=== PATIENT | female | born 1950 | race Caucasian/White ===

== ENCOUNTER 2016-06-08 20:20 | Inpatient (IN) | payer MEDICARE, MEDICAID ==
[2016-06-08 21:48] LABS: ABSOLUTE EOSINOPHILS # (AUTO) 0.2 10^3/uL (0.0-0.6); ABSOLUTE LYMPHOCYTES (AUTO) 0.8 10^3/uL (0.5-4.7); ABSOLUTE MONOCYTES (AUTO) 0.8 10^3/uL (0.1-1.4); ABSOLUTE NEUT (AUTO) 4.8 10^3/uL (1.7-8.2); BASOPHILS % (AUTO) 0.4 % (0-2); EOSINOPHILS % (AUTO) 2.3 % (0-6); HEMATOCRIT 39.1 % (36.0-47.0); HEMOGLOBIN 12.8 g/dL (12.0-15.5); HGB HCT DIFFERENCE -0.7; LYMPHOCYTES % (AUTO) 12.5 % (13-45); MEAN CORPUSCULAR HEMOGLOBIN 29.6 pg (27.0-33.4); MEAN CORPUSCULAR HGB CONC 32.8 g/dL (32.0-36.0); MEAN CORPUSCULAR VOLUME 90 fl (80-97); MONOCYTES % (AUTO) 12.2 % (3-13); RED BLOOD COUNT 4.33 10^6/uL (3.72-5.28); RED CELL DISTRIBUTION WIDTH 14.9 % (11.5-14.0); SEGMENTED NEUTROPHILS % (AUTO) 72.6 % (42-78); WHITE BLOOD COUNT 6.6 10^3/uL (4.0-10.5)
[2016-06-08 22:13] LABS: ALANINE AMINOTRANSFERASE 49 U/L (9-52); ALBUMIN 3.3 g/dL (3.5-5.0); ALKALINE PHOSPHATASE 76 U/L (38-126); ASPARTATE AMINO TRANSFERASE 25 U/L (14-36); BILIRUBIN,TOTAL 0.6 mg/dL (0.2-1.3); BLOOD UREA NITROGEN 12 mg/dL (7-20); CALCIUM 8.8 mg/dL (8.4-10.2); CHLORIDE 89 mmol/L (98-107); CREATINE KINASE 25 U/L (30-135); CREATININE RESULT 0.43 mg/dL (0.52-1.25); GLUCOSE 91 mg/dL (75-110); POTASSIUM 4.6 mmol/L (3.6-5.0); SODIUM 135.4 mmol/L (137-145); TOTAL PROTEIN 5.7 g/dL (6.3-8.2)
[2016-06-08 22:19] LABS: ANION GAP 5 (5-19)
[2016-06-08 22:23] LABS: CARBON DIOXIDE 41 mmol/L (22-30); CREATINE KINASE MB 0.94 ng/mL (<4.55)
[2016-06-08 22:24] LABS: TROPONIN I < 0.012 ng/mL
--- NOTE | 2016-06-08 22:25 | ER Document Report ---
ED General - General Chief Complaint: Shortness Of Breath Stated Complaint: SHORTNESS OF BREATH Mode of Arrival: Medic Information source: Patient Notes: 66-year-old female history of emphysema presents with complaints of shortness breath difficult to breathing. Patient denies any fevers or chills denies any productive cough. Patient was given breathing treatments by EMS and states symptoms have improved significantly. Patient is on 3 L nasal cannula at home TRAVEL OUTSIDE OF THE [place] IN LAST 30 DAYS: No - HPI Onset: Other - 3-4 day duration Onset/Duration: Sudden Quality of pain: Achy Severity: Mild Pain Level: 1 Associated symptoms: Productive cough, Shortness of breath Exacerbated by: Walking Relieved by: Denies Similar symptoms previously: Yes Recently seen / treated by doctor: Yes - Related Data Allergies/Adverse Reactions: No Known Allergies Allergy (Verified 10/25/14 09:26) Past Medical History - Social History Smoking Status: Never Smoker Cigarette use (# per day): No Chew tobacco use (# tins/day): No Smoking Education Provided: No Family History: Reviewed & Not Pertinent - Past Medical History Cardiac Medical History: Reports: Hx Hypertension Denies: Hx Coronary Artery Disease, Hx Heart Attack Pulmonary Medical History: Reports: Hx Pneumonia - WHEN I WAS 7 YRS OLD Denies: Hx Asthma, Hx Bronchitis, Hx COPD Neurological Medical History: Denies: Hx Cerebrovascular Accident, Hx Seizures Renal/ Medical History: Denies: Hx Peritoneal Dialysis GI Medical History: Denies: Hx Hepatitis, Hx Hiatal Hernia, Hx Ulcer Musculoskeltal Medical History: Reports Hx Arthritis Psychiatric Medical History: Reports: Hx Depression Infectious Medical History: Denies: Hx Hepatitis Past Surgical History: Reports: Hx Orthopedic Surgery - spinal fusion. Denies: Hx Hysterectomy, Hx Mastectomy, Hx Open Heart Surgery, Hx Pacemaker - Immunizations Hx Diphtheria, Pertussis, Tetanus Vaccination: Yes Hx Pneumococcal Vaccination: 04/05/11 Review of Systems - Review of Systems Notes: REVIEW OF SYSTEMS: CONSTITUTIONAL : Denies fever, chills, or sweats. Denies recent illness. EENT: Denies eye, ear, throat, or mouth pain or symptoms. Denies nasal or sinus congestion or discharge. Denies throat, tongue, or mouth swelling or difficulty swallowing. CARDIOVASCULAR: Denies chest pain. Denies palpitations or racing or irregular heart beat. Denies ankle edema. RESPIRATORY: Admits to shortness of breath productive cough GASTROINTESTINAL: Denies abdominal pain or distention. Denies nausea, vomiting , or diarrhea. Denies blood in vomitus, stools, or per rectum. Denies black, tarry stools. Denies constipation. GENITOURINARY: Denies difficulty urinating, painful urination, burning, frequency, blood in urine, or discharge. FEMALE GENITOURINARY: Denies vaginal bleeding, heavy or abnormal periods, irregular periods. Denies vaginal discharge or odor. MUSCULOSKELETAL: Denies back or neck pain or stiffness. Denies joint pain or swelling. SKIN: Denies rash, lesions or sores. HEMATOLOGIC : Denies easy bruising or bleeding. LYMPHATIC: Denies swollen, enlarged glands. NEUROLOGICAL: Denies confusion or altered mental status. Denies passing out or loss of consciousness. Denies dizziness or lightheadedness. Denies headache. Denies weakness or paralysis or loss of use of either side. Denies problems with gait or speech. Denies sensory loss, numbness, or tingling. Denies seizures. PSYCHIATRIC: Denies anxiety or stress. Denies depression, suicidal ideation, or homicidal ideation. ALL OTHER SYSTEMS REVIEWED AND NEGATIVE. Dictation was performed using [facility] voice recognition software PHYSICAL EXAMINATION: GENERAL: Well-appearing, well-nourished and in no acute distress. HEAD: Atraumatic, normocephalic. EYES: Pupils equal round and reactive to light, extraocular movements intact, conjunctiva are normal. ENT: Nares patent, oropharynx clear without exudates. Moist mucous membranes. NECK: Normal range of motion, supple without lymphadenopathy LUNGS: Coarse breath sounds all throughout HEART: Regular rate and rhythm without murmurs ABDOMEN: Soft, nontender, nondistended abdomen. No guarding, no rebound. No masses appreciated. Female : deferred Musculoskeletal: Normal range of motion, no pitting or edema. No cyanosis. NEUROLOGICAL: Cranial nerves grossly intact. Normal speech, normal gait. Normal sensory, motor exams PSYCH: Normal mood, normal affect. SKIN: Warm, Dry, normal turgor, no rashes or lesions noted. Physical Exam - Vital signs Vitals: Temp Resp Pulse Ox 98.5 F 13 97 06/08/16 20:38 06/08/16 20:38 06/08/16 20:38 Course - Re-evaluation Re-evalutation: 06/08/16 22:44 Patient is noted to be hypercapnic, will be started on BiPAP and will be admitted to her primary care physician patient's otherwise stable - Vital Signs Vital signs: Temp Pulse Resp BP Pulse Ox 98.5 F 28 H 129/62 H 92 06/08/16 20:38 06/08/16 21:00 06/08/16 20:40 06/08/16 21:00 - Laboratory Result Diagrams: 06/08/16 21:21 06/08/16 21:21 Laboratory results interpreted by me: 06/08/16 06/08/16 06/08/16 21:21 21:21 21:21 RDW 14.9 H Lymphocytes % 12.5 L Sodium 135.4 L Chloride 89 L Carbon Dioxide 41 H* Creatinine 0.43 L Creatine Kinase 25 L NT-Pro-B Natriuret Pep 2130 H Total Protein 5.7 L Albumin 3.3 L - Diagnostic Test Radiology reviewed: Image reviewed, Reports reviewed Critical Care Note - Critical Care Note Total time excluding time spent on procedures (mins): 41 Comments: 41 minutes of critical care time spent in direct contact evaluating and reevaluating the patient, treating symptoms, reviewing labs and studies and speaking with family and consultants excluding any procedures Discharge - Discharge Clinical Impression: Hypercapnia Emphysema lung Qualifiers: Emphysema type: unspecified Qualified Code(s): J43.9 - Emphysema, unspecified Condition: Stable Disposition: ADMITTED INPATIENT Admitting Provider: [facility] Admitted: Telemetry
[2016-06-08 22:42] LABS: APPEARANCE,URINE CLOUDY; BILIRUBIN,URINE NEGATIVE (NEGATIVE); GLUCOSE, URINE NEGATIVE (NEGATIVE); KETONES,URINE NEGATIVE (NEGATIVE); LEUKOCYTE ESTERASE,URINE LARGE (NEGATIVE); NITRITE,URINE NEGATIVE (NEGATIVE); PROTEIN,URINE 30 mg/dL (NEGATIVE); URINE SPECIFIC GRAVITY 1.018
[2016-06-08 22:48] LABS: VENOUS BLOOD HCO3 42.9 mmol/L (20-32); VENOUS BLOOD PH 7.32 (7.30-7.42)
[2016-06-08 22:51] LABS: VENOUS BLOOD PCO2 85.8 mmHg (35-63)
[2016-06-09] MEDS ORDERED: CEFEPIME 2 GM/D5W RTU 2 GM/50 ML RTUPB IV SCH ×2 (00:15→10:00)
[2016-06-09] MEDS ORDERED: CEFEPIME 2 GM/D5W RTU 2 GM/50 ML RTUPB IV ONE (00:45)
[2016-06-09] MEDS ORDERED: LEVOFLOXACIN 750 MG/D5W RTU 750 MG/150 ML RTUPB IV ONE (01:00)
[2016-06-09 01:03] LABS: THYROID STIMULATING HORMONE 2.19 uIU/mL (0.47-4.68)
[2016-06-09 03:38] LABS: ABSOLUTE EOSINOPHILS # (AUTO) 0.2 10^3/uL (0.0-0.6); ABSOLUTE LYMPHOCYTES (AUTO) 0.9 10^3/uL (0.5-4.7); ABSOLUTE MONOCYTES (AUTO) 0.6 10^3/uL (0.1-1.4); ABSOLUTE NEUT (AUTO) 3.7 10^3/uL (1.7-8.2); BASOPHILS % (AUTO) 0.5 % (0-2); EOSINOPHILS % (AUTO) 3.1 % (0-6); HEMATOCRIT 37.7 % (36.0-47.0); HEMOGLOBIN 12.3 g/dL (12.0-15.5); HGB HCT DIFFERENCE -0.8; LYMPHOCYTES % (AUTO) 16.3 % (13-45); MEAN CORPUSCULAR HEMOGLOBIN 29.3 pg (27.0-33.4); MEAN CORPUSCULAR HGB CONC 32.6 g/dL (32.0-36.0); MEAN CORPUSCULAR VOLUME 90 fl (80-97); MONOCYTES % (AUTO) 11.2 % (3-13); RED CELL DISTRIBUTION WIDTH 14.9 % (11.5-14.0); SEGMENTED NEUTROPHILS % (AUTO) 68.9 % (42-78); WHITE BLOOD COUNT 5.4 10^3/uL (4.0-10.5)
[2016-06-09 03:58] LABS: BLOOD UREA NITROGEN 11 mg/dL (7-20); CALCIUM 8.4 mg/dL (8.4-10.2); CHLORIDE 89 mmol/L (98-107); CREATININE RESULT 0.43 mg/dL (0.52-1.25); GLUCOSE 108 mg/dL (75-110)
[2016-06-09 04:11] LABS: CREATINE KINASE < 20 U/L (30-135)
[2016-06-09 04:19] LABS: POTASSIUM 4.3 mmol/L (3.6-5.0); SODIUM 136.5 mmol/L (137-145)
[2016-06-09 04:28] LABS: ANION GAP 6 (5-19)
[2016-06-09 04:32] LABS: CARBON DIOXIDE 42 mmol/L (22-30)
[2016-06-09 08:23] LABS: URINE BARBITURATES SCREEN NEGATIVE; URINE METHADONE SCREEN NEGATIVE; URINE OPIATES LOW NEGATIVE; URINE PHENCYCLIDINE SCREEN NEGATIVE
[2016-06-09 10:38] LABS: CREATINE KINASE MB 1.47 ng/mL (<4.55)
[2016-06-09 10:41] LABS: TROPONIN I < 0.012 ng/mL
[2016-06-09] MEDS: CEFEPIME HCL 2 GM in DEXTROSE 5%-WATER 50 ML IV SCH ×2 (12:39→23:45)
--- NOTE | 2016-06-09 12:58 | EKG REPORT ---
SEVERITY:- ABNORMAL ECG - SINUS RHYTHM ABNORMAL T, PROBABLE ISCHEMIA, INFERIOR LEADS BORDERLINE PROLONGED QT INTERVAL : Confirmed by: Malina Dobbins 09-Jun-2016 12:57:37
--- NOTE | 2016-06-09 13:54 | Physician Advisory Note ---
Physician Advisor ProgressNote .: Pursuant to the plan for [facility], I have reviewed the medical record for this patient. Physician Advisor Statement: Possible documentation opportunities if attending agrees: 1. ? - "Acute hypoxemic respiratory failure with hypoxemia on her usual O2 level and labored breathing initially, needing Bipap in ED." - & note what is being done for this - [ ?is O2 ordered, or just being given by nurses without an order? ] 2. ? - "chronic hypoxemic respiratory failure requiring 3L O2 at baseline" - - & also Please clarify what pulmonary problems this pt has at baseline, to clear up the contradictory info from ED records below. 3. "LLL pleural effusion" - - "with suspected LLL gram-negative pneumonia"? ( or simply Acute bronchitis? what is being covered for w/Maxipime/Levaquin?) 4. "mild hyponatremia, likely due to " 5. "suspected protein-calorie malnutrition [state mild, mod, or severe] with BMI 26.5, Cr 0.43 w/BUN 12, ____[?wt loss, ?appetite loss, ]" [if possible, give specifics on intake, wt loss, loss of SQ fat & muscle mass, diminished hand rn community strength, & clinical importance such as (A) nutritional assessment ordered, (B) modified diet or supplements ordered, (C) additional labs ordered, (D) prolonged wound healing time, (E) delayed infxn clearance] As always, if concerned about any unstable VS or abnormal labs, please comment on them & note what doing about them, & please document each day the potential clinical problems you are concerned could occur if pt not kept in hospital for tx at this time. Discussion: 66yo female w/ chronic co-morbidities including HTN, past tobacco use, (+)mild pulmonary hypertension & grade I diastolic dysfunction by ECHO 2013 (EF 65%), with unclear chronic respiratory problem hx - chronic 3L O2 needs at baseline per ED dr note, & (+)emphysema, but "denies COPD" & no COPD/emphysema findings reported on CXR/CT reports; (+)evidence of chronic hypercarbia by VBG this visit - presented 3/6 PM to ED w/SOB, cough. Brought by EMS. ED nurse reports EMS gave ASA & SL NTG, pt had sats 70s @home (?on how much O2?? ), & pt was CP free on arrival to ED but still w/mild SOB. ED dr reports EMS gave nebs & this improved pt's breathing by time of arrival. (+) RR28, initial sat 92-97% on ? amt O2, coarse BS throughout, (+)productive cough, WBC wnl, Na 135.4, bicarb 41, BUN 12, Cr 0.43, alb 3.3, BNP up (from 171 in 2013) to 0, VBG's pCO2 85.8 w/bicarb 42.9. CXR = cardiomegaly, BLL densities c/w pleural effusions vs infiltrate, CT = LLL pneumonitis w/Lt pleural effusion, min opacities RLL. ED nurse reported (21:02) pt w/wheezes, breathing labored, tachypneic, SOB on exam initially. [place]so of 22:40, pt required Bipap. Attending ordered IV Maxipime, IV Levaquin, nebs q4h prn, daily wts, BC, U/A, ur cx, f/u labs. Status: Pt with underlying lung dz including chronic hypercarbia, reported chronic hypoxemia, here w/acute downturn with increased work of breathing, requiring not just O2 support but Bipap early on. She has significantly increased BNP and evidence of past underlying diastolic dysfunction, with cardiomegaly on CXR. Pt still with frequent tacbypnea this AM & intermittent tachycardia. High risk for worsening respiratory status if not cared for & monitored in hospital at presetn Attending has already ordered repeat labs for the next 2 days, consistent with expectation she will require more midnights of hospital care. Tx in inpatient hospital setting medically reasonable & necessary to protect pt' s health, safety, & medical condition. Appropriate for Inpt status. Thanks for your help with documentation accuracy/specificity improvement! Cecilia Cordon MD [facility] Physician Advisor, Fellow of Hospital Medicine
[2016-06-09 16:26] LABS: CREATINE KINASE MB 1.08 ng/mL (<4.55); TROPONIN I < 0.012 ng/mL
--- NOTE | 2016-06-09 18:29 | PDOC H&P ---
History of Present Illness Admission Date/PCP: 06/08/16 23:57 KIMI CANELA MD History of Present Illness: MITCH ORELLANA is a 66 year old female with history of chronic respiratory failure on home oxygen, she has postpolio syndrome with chest deformity severe scoliosis on COPD, she complains of shortness of breath, she said pulse oximetry reading was in the low 70s at home that is when she called the rescue squad. When she arrived in the emergency room she was evaluated venous blood gas was done showed PCO2 of 85 a chest x-ray was done that suggest pneumonia, I ordered CT chest that showed left basilar opacity consistent with pneumonic changes. Past Medical History Cardiac Medical History: Reports: Hypertension Pulmonary Medical History: Reports: Chronic Obstructive Pulmonary Disease (COPD) , Pneumonia - WHEN I WAS 7 YRS OLD, Respiratory Failure Musculoskeltal Medical History: Reports: Arthritis Psychiatric Medical History: Reports: Depression Past Surgical History Past Surgical History: Reports: Orthopedic Surgery - spinal fusion Social History Smoking Status: Never Smoker Frequency of Alcohol Use: None Hx Recreational Drug Use: No Hx Prescription Drug Abuse: No - Advance Directive Resuscitation Status: Full Code Family History Family History: Reviewed & Not Pertinent Parental Family History Reviewed: Yes Children Family History Reviewed: Yes Sibling(s) Family History Reviewed.: Yes Medication/Allergy Home Medications: Aspirin [Ecotrin 81 mg EC Tablet] 81 mg PO DAILY 06/09/16 Ipratropium/Albuterol Sulfate [Duoneb 3 ml Ampul] 3 ml NEB RTQ6 06/09/16 Losartan/Hydrochlorothiazide [Hyzaar 50-12.5 Tablet] 1 each PO DAILY 06/09/16 Metoprolol Succinate [Toprol XL 100 mg Tablet] 100 mg PO DAILY 06/09/16 Allergies/Adverse Reactions: No Known Allergies Allergy (Verified 10/25/14 09:26) Review of Systems Eyes: ABSENT: visual disturbances Ears: ABSENT: hearing changes Cardiovascular: PRESENT: dyspnea on exertion, orthropnea Respiratory: PRESENT: cough, dyspnea, sputum Gastrointestinal: ABSENT: as per HPI, abdominal pain, bloating, coffee ground emesis, constipation, diarrhea, dysphagia, heartburn, hematemesis, hematochezia , melena, nausea, vomiting, other Neurological: ABSENT: abnormal gait, abnormal speech, confusion, dizziness, focal weakness, syncope Psychiatric: PRESENT: anxiety Endocrine: ABSENT: as per HPI, cold intolerance, flushing, heat intolerance, menstrual abnormalities, polydipsia, polyphagia, polyuria, other Hematologic/Lymphatic: ABSENT: easy bleeding, easy bruising, lymphadenopathy Physical Exam Vital Signs: Temp Pulse Resp BP Pulse Ox 99.6 F 88 20 104/50 L 100 06/09/16 16:20 06/09/16 16:20 06/09/16 16:20 06/09/16 16:20 06/09/16 16:20 Intake & Output 06/08/16 06/09/16 06/10/16 06:59 06:59 06:59 Weight 56.6 kg 59.5 kg General appearance: PRESENT: mild distress Head exam: PRESENT: atraumatic, normocephalic Eye exam: PRESENT: PERRLA. ABSENT: scleral icterus Ear exam: PRESENT: normal external ear exam Mouth exam: PRESENT: moist, tongue midline Neck exam: PRESENT: full ROM Respiratory exam: PRESENT: decreased breath sounds, other - There is chest wall deformity with severe scoliosis, decreased breath sounds in the left lower lung zone Cardiovascular exam: PRESENT: RRR. ABSENT: diastolic murmur, rubs, systolic murmur Pulses: PRESENT: normal dorsalis pedis pul, +2 pedal pulses bilateral Vascular exam: PRESENT: normal capillary refill GI/Abdominal exam: PRESENT: normal bowel sounds, soft Rectal exam: PRESENT: deferred Neurological exam: PRESENT: alert, awake, oriented to person, oriented to place , oriented to time, oriented to situation, CN II-XII grossly intact. ABSENT: motor sensory deficit Skin exam: ABSENT: cyanosis, rash Results Laboratory Results: 06/09/16 03:27 06/09/16 03:27 06/09/16 06/09/16 06/09/16 00:19 03:27 03:27 WBC 5.4 RBC 4.20 Hgb 12.3 Hct 37.7 MCV 90 MCH 29.3 MCHC 32.6 RDW 14.9 H Plt Count 134 L Seg Neutrophils % 68.9 Lymphocytes % 16.3 Monocytes % 11.2 Eosinophils % 3.1 Basophils % 0.5 Absolute Neutrophils 3.7 Absolute Lymphocytes 0.9 Absolute Monocytes 0.6 Absolute Eosinophils 0.2 Absolute Basophils 0.0 Sodium 136.5 L Potassium 4.3 Chloride 89 L Carbon Dioxide 42 H* Anion Gap 6 BUN 11 Creatinine 0.43 L Est GFR ( Amer) > 60 Est GFR (Non-Af Amer) > 60 Glucose 108 Calcium 8.4 Ammonia 12.4 06/09/16 06/09/16 06/09/16 03:27 09:58 15:35 Creatine Kinase < 20 L 29 L CK-MB (CK-2) 1.47 Troponin I < 0.012 06/09/16 15:35 Creatine Kinase CK-MB (CK-2) 1.08 Troponin I < 0.012 Impressions: Chest X-Ray 06/08/16 21:34 IMPRESSION: Bibasilar densities as noted above. Cardiomegaly. Other findings as noted above Chest CT 06/09/16 00:00 IMPRESSION: Left basilar pneumonitis with left pleural effusion. Minimal opacities at the right lung base. Assessment & Plan - Diagnosis (1) Left lower lobe pneumonia Qualifiers: Pneumonia type: due to unspecified organism Qualified Code(s): J18.1 - Lobar pneumonia, unspecified organism Is this a current diagnosis for this admission?: YesPlan: He has left lower lobe pneumonia, he is started on IV antibiotic, Levaquin and cefepime (2) Acute hypercapnic respiratory failure Is this a current diagnosis for this admission?: YesPlan: There is associated acute hypercapnic respiratory failure, history of COPD (3) Chronic obstructive pulmonary disease Qualifiers: COPD type: unspecified COPD Qualified Code(s): J44.9 - Chronic obstructive pulmonary disease, unspecified Is this a current diagnosis for this admission?: Yes (4) Post-polio syndrome Is this a current diagnosis for this admission?: Yes
[2016-06-09] MEDS: LEVOFLOXACIN 750 MG/D5W RTU 750 MG/150 ML RTUPB IV SCH (21:42)
[2016-06-10 05:58] LABS: ABSOLUTE EOSINOPHILS # (AUTO) 0.2 10^3/uL (0.0-0.6); ABSOLUTE LYMPHOCYTES (AUTO) 0.6 10^3/uL (0.5-4.7); ABSOLUTE MONOCYTES (AUTO) 0.6 10^3/uL (0.1-1.4); ABSOLUTE NEUT (AUTO) 4.1 10^3/uL (1.7-8.2); BASOPHILS % (AUTO) 0.3 % (0-2); EOSINOPHILS % (AUTO) 3.4 % (0-6); HEMATOCRIT 39.9 % (36.0-47.0); HEMOGLOBIN 12.6 g/dL (12.0-15.5); HGB HCT DIFFERENCE -2.1; LYMPHOCYTES % (AUTO) 10.1 % (13-45); MEAN CORPUSCULAR HEMOGLOBIN 29.2 pg (27.0-33.4); MEAN CORPUSCULAR HGB CONC 31.6 g/dL (32.0-36.0); MEAN CORPUSCULAR VOLUME 92 fl (80-97); MONOCYTES % (AUTO) 11.4 % (3-13); RED BLOOD COUNT 4.32 10^6/uL (3.72-5.28); RED CELL DISTRIBUTION WIDTH 15.4 % (11.5-14.0); SEGMENTED NEUTROPHILS % (AUTO) 74.8 % (42-78); WHITE BLOOD COUNT 5.5 10^3/uL (4.0-10.5)
[2016-06-10 06:22] LABS: ALANINE AMINOTRANSFERASE 40 U/L (9-52); ALBUMIN 3.3 g/dL (3.5-5.0); ALKALINE PHOSPHATASE 65 U/L (38-126); ANION GAP 10 (5-19); ASPARTATE AMINO TRANSFERASE 16 U/L (14-36); BILIRUBIN,TOTAL 0.4 mg/dL (0.2-1.3); BLOOD UREA NITROGEN 15 mg/dL (7-20); CARBON DIOXIDE 39 mmol/L (22-30); CHLORIDE 91 mmol/L (98-107); CREATININE RESULT 0.51 mg/dL (0.52-1.25); GLUCOSE 142 mg/dL (75-110); POTASSIUM 4.3 mmol/L (3.6-5.0); SODIUM 140.3 mmol/L (137-145); TOTAL PROTEIN 5.6 g/dL (6.3-8.2)
[2016-06-10 06:25] LABS: CREATINE KINASE MB 1.36 ng/mL (<4.55)
[2016-06-10 06:33] LABS: TROPONIN I < 0.012 ng/mL
[2016-06-10] MEDS: ENOXAPARIN SODIUM INJ 40 MG/0.4 ML DISP.SYRIN SUBCUT SCH ×2 (08:53→08:58)
[2016-06-10] MEDS: CEFEPIME HCL 2 GM in DEXTROSE 5%-WATER 50 ML IV SCH ×2 (11:36→23:05)
--- NOTE | 2016-06-10 18:21 | PDOC PROGRESS REPORT ---
Subjective Progress Note for:: 06/10/16 Subjective:: She was admitted for pneumonia and she seems to be responding to IV antibiotic Physical Exam Vital Signs: Temp Pulse Resp BP Pulse Ox 99.1 F 92 19 123/48 L 98 06/10/16 16:20 06/10/16 16:20 06/10/16 16:20 06/10/16 16:20 06/10/16 16:20 Intake & Output 06/09/16 06/10/16 06/11/16 06:59 06:59 06:59 Intake Total 850 100 Balance 850 100 Weight 56.6 kg 61.7 kg General appearance: PRESENT: no acute distress Eye exam: PRESENT: PERRLA Respiratory exam: PRESENT: rales Cardiovascular exam: PRESENT: +S1, +S2 GI/Abdominal exam: PRESENT: soft Results Laboratory Results: 06/10/16 04:51 06/10/16 04:51 06/10/16 06/10/16 04:51 04:51 WBC 5.5 RBC 4.32 Hgb 12.6 Hct 39.9 MCV 92 MCH 29.2 MCHC 31.6 L RDW 15.4 H Plt Count 143 L Seg Neutrophils % 74.8 Lymphocytes % 10.1 L Monocytes % 11.4 Eosinophils % 3.4 Basophils % 0.3 Absolute Neutrophils 4.1 Absolute Lymphocytes 0.6 Absolute Monocytes 0.6 Absolute Eosinophils 0.2 Absolute Basophils 0.0 Sodium 140.3 Potassium 4.3 Chloride 91 L Carbon Dioxide 39 H Anion Gap 10 BUN 15 Creatinine 0.51 L Est GFR ( Amer) > 60 Est GFR (Non-Af Amer) > 60 Glucose 142 H Calcium 9.0 Total Bilirubin 0.4 AST 16 ALT 40 Alkaline Phosphatase 65 Total Protein 5.6 L Albumin 3.3 L 06/09/16 06/09/16 06/09/16 03:27 09:58 09:58 Creatine Kinase < 20 L 34 CK-MB (CK-2) 1.47 Troponin I < 0.012 06/09/16 06/09/16 06/10/16 15:35 15:35 04:51 Creatine Kinase 29 L CK-MB (CK-2) 1.08 1.36 Troponin I < 0.012 < 0.012 Impressions: Chest X-Ray 06/08/16 21:34 IMPRESSION: Bibasilar densities as noted above. Cardiomegaly. Other findings as noted above Chest CT 06/09/16 00:00 IMPRESSION: Left basilar pneumonitis with left pleural effusion. Minimal opacities at the right lung base. Assessment & Plan - Diagnosis (1) Left lower lobe pneumonia Qualifiers: Pneumonia type: due to unspecified organism Qualified Code(s): J18.1 - Lobar pneumonia, unspecified organism Is this a current diagnosis for this admission?: YesPlan: She will continue IV antibiotic (2) Acute hypercapnic respiratory failure Is this a current diagnosis for this admission?: Yes (3) Chronic obstructive pulmonary disease Qualifiers: COPD type: unspecified COPD Qualified Code(s): J44.9 - Chronic obstructive pulmonary disease, unspecified Is this a current diagnosis for this admission?: Yes (4) Post-polio syndrome Is this a current diagnosis for this admission?: Yes
[2016-06-10] MEDS: LEVOFLOXACIN 750 MG/D5W RTU 750 MG/150 ML RTUPB IV SCH (21:16)
[2016-06-11 05:11] LABS: ABSOLUTE EOSINOPHILS # (AUTO) 0.2 10^3/uL (0.0-0.6); ABSOLUTE LYMPHOCYTES (AUTO) 0.6 10^3/uL (0.5-4.7); ABSOLUTE MONOCYTES (AUTO) 0.8 10^3/uL (0.1-1.4); ABSOLUTE NEUT (AUTO) 5.1 10^3/uL (1.7-8.2); BASOPHILS % (AUTO) 0.3 % (0-2); EOSINOPHILS % (AUTO) 2.5 % (0-6); HEMATOCRIT 38.3 % (36.0-47.0); HEMOGLOBIN 12.4 g/dL (12.0-15.5); HGB HCT DIFFERENCE -1.1; LYMPHOCYTES % (AUTO) 8.7 % (13-45); MEAN CORPUSCULAR HEMOGLOBIN 29.7 pg (27.0-33.4); MEAN CORPUSCULAR HGB CONC 32.3 g/dL (32.0-36.0); MEAN CORPUSCULAR VOLUME 92 fl (80-97); MONOCYTES % (AUTO) 11.4 % (3-13); RED BLOOD COUNT 4.17 10^6/uL (3.72-5.28); RED CELL DISTRIBUTION WIDTH 15.2 % (11.5-14.0); SEGMENTED NEUTROPHILS % (AUTO) 77.1 % (42-78); WHITE BLOOD COUNT 6.7 10^3/uL (4.0-10.5)
[2016-06-11 05:34] LABS: ALANINE AMINOTRANSFERASE 40 U/L (9-52); ALBUMIN 3.3 g/dL (3.5-5.0); ALKALINE PHOSPHATASE 72 U/L (38-126); ASPARTATE AMINO TRANSFERASE 16 U/L (14-36); BILIRUBIN,TOTAL 0.3 mg/dL (0.2-1.3); BLOOD UREA NITROGEN 12 mg/dL (7-20); CALCIUM 8.7 mg/dL (8.4-10.2); CHLORIDE 88 mmol/L (98-107); GLUCOSE 100 mg/dL (75-110); POTASSIUM 4.7 mmol/L (3.6-5.0); SODIUM 136.3 mmol/L (137-145); TOTAL PROTEIN 5.8 g/dL (6.3-8.2)
[2016-06-11 05:47] LABS: ANION GAP 5 (5-19); CARBON DIOXIDE 43 mmol/L (22-30)
[2016-06-11] MEDS: ENOXAPARIN SODIUM INJ 40 MG/0.4 ML DISP.SYRIN SUBCUT SCH (07:48)
[2016-06-11 10:09] LABS: ARTERIAL BLOOD BASE EXCESS 14.7 mmol/L; ARTERIAL BLOOD O2 SATURATION 89.9 % (94-98)
[2016-06-11 11:49] LABS: APPEARANCE,URINE SLIGHTLY-CLOUDY; BILIRUBIN,URINE NEGATIVE (NEGATIVE); GLUCOSE, URINE NEGATIVE (NEGATIVE); KETONES,URINE NEGATIVE (NEGATIVE); LEUKOCYTE ESTERASE,URINE NEGATIVE (NEGATIVE); NITRITE,URINE NEGATIVE (NEGATIVE); PROTEIN,URINE NEGATIVE (NEGATIVE); URINE SPECIFIC GRAVITY 1.025; UROBILINOGEN,URINE NEGATIVE mg/dL (<2.0)
[2016-06-11] MEDS: CEFEPIME HCL 2 GM in DEXTROSE 5%-WATER 50 ML IV SCH ×2 (12:08→23:21)
[2016-06-11 20:02] LABS: ARTERIAL BLOOD BASE EXCESS 13.4 mmol/L
[2016-06-11] MEDS: LEVOFLOXACIN 750 MG TABLET PO SCH (21:26)
[2016-06-12 05:32] LABS: BILIRUBIN,TOTAL 0.6 mg/dL (0.2-1.3); TOTAL PROTEIN 5.1 g/dL (6.3-8.2)
[2016-06-12] MEDS: ENOXAPARIN SODIUM INJ 40 MG/0.4 ML DISP.SYRIN SUBCUT SCH (07:42)
[2016-06-12] MEDS: CEFEPIME HCL 2 GM in DEXTROSE 5%-WATER 50 ML IV SCH (11:30)
--- NOTE | 2016-06-12 21:00 | PDOC PROGRESS REPORT ---
Subjective Progress Note for:: 06/11/16 Subjective:: ABG was done today and it showed severe respiratory acidosis requiring positive pressure ventilation Physical Exam Vital Signs: Temp Pulse Resp BP Pulse Ox 97.9 F 83 19 125/52 L 93 06/11/16 15:27 06/11/16 19:00 06/11/16 15:27 06/11/16 15:27 06/11/16 15:27 Intake & Output 06/10/16 06/11/16 06/12/16 06:59 06:59 06:59 Intake Total 850 1507 183 Output Total 250 Balance 850 1507 -67 Weight 61.7 kg 62.4 kg General appearance: PRESENT: mild distress Eye exam: PRESENT: PERRLA Respiratory exam: PRESENT: crackles Cardiovascular exam: PRESENT: +S1, +S2 GI/Abdominal exam: PRESENT: soft Neurological exam: PRESENT: alert Results Laboratory Results: 06/11/16 04:13 06/11/16 04:13 06/11/16 06/11/16 06/11/16 04:13 04:13 09:50 WBC 6.7 RBC 4.17 Hgb 12.4 Hct 38.3 MCV 92 MCH 29.7 MCHC 32.3 RDW 15.2 H Plt Count 132 L Seg Neutrophils % 77.1 Lymphocytes % 8.7 L Monocytes % 11.4 Eosinophils % 2.5 Basophils % 0.3 Absolute Neutrophils 5.1 Absolute Lymphocytes 0.6 Absolute Monocytes 0.8 Absolute Eosinophils 0.2 Absolute Basophils 0.0 Carbonic Acid 4.21 H HCO3/H2CO3 Ratio 11:1 ABG pH 7.16 L* ABG pCO2 139.9 H* ABG pO2 77.9 L ABG HCO3 49.1 H ABG O2 Saturation 89.9 L ABG Base Excess 14.7 FiO2 3.5L Sodium 136.3 L Potassium 4.7 Chloride 88 L Carbon Dioxide 43 H* Anion Gap 5 BUN 12 Creatinine 0.40 L Est GFR ( Amer) > 60 Est GFR (Non-Af Amer) > 60 Glucose 100 Calcium 8.7 Total Bilirubin 0.3 AST 16 ALT 40 Alkaline Phosphatase 72 Total Protein 5.8 L Albumin 3.3 L Urine Color Urine Appearance Urine pH Ur Specific [place] Urine Protein Urine Glucose (UA) Urine Ketones Urine Blood Urine Nitrite Ur Leukocyte Esterase Urine WBC (Auto) Urine RBC (Auto) 06/11/16 11:10 WBC RBC Hgb Hct MCV MCH MCHC RDW Plt Count Seg Neutrophils % Lymphocytes % Monocytes % Eosinophils % Basophils % Absolute Neutrophils Absolute Lymphocytes Absolute Monocytes Absolute Eosinophils Absolute Basophils Carbonic Acid HCO3/H2CO3 Ratio ABG pH ABG pCO2 ABG pO2 ABG HCO3 ABG O2 Saturation ABG Base Excess FiO2 Sodium Potassium Chloride Carbon Dioxide Anion Gap BUN Creatinine Est GFR ( Amer) Est GFR (Non-Af Amer) Glucose Calcium Total Bilirubin AST ALT Alkaline Phosphatase Total Protein Albumin Urine Color YELLOW Urine Appearance SLIGHTLY-CLOUDY Urine pH 5.0 Ur Specific [place] 1.025 Urine Protein NEGATIVE Urine Glucose (UA) NEGATIVE Urine Ketones NEGATIVE Urine Blood NEGATIVE Urine Nitrite NEGATIVE Ur Leukocyte Esterase NEGATIVE Urine WBC (Auto) 5 Urine RBC (Auto) 1 06/09/16 06/09/16 06/09/16 03:27 09:58 09:58 Creatine Kinase < 20 L 34 CK-MB (CK-2) 1.47 Troponin I < 0.012 06/09/16 06/09/16 06/10/16 15:35 15:35 04:51 Creatine Kinase 29 L CK-MB (CK-2) 1.08 1.36 Troponin I < 0.012 < 0.012 Impressions: Chest X-Ray 06/08/16 21:34 IMPRESSION: Bibasilar densities as noted above. Cardiomegaly. Other findings as noted above Chest CT 06/09/16 00:00 IMPRESSION: Left basilar pneumonitis with left pleural effusion. Minimal opacities at the right lung base. Assessment & Plan - Diagnosis (1) Left lower lobe pneumonia Qualifiers: Pneumonia type: due to unspecified organism Qualified Code(s): J18.1 - Lobar pneumonia, unspecified organism Is this a current diagnosis for this admission?: Yes (2) Acute hypercapnic respiratory failure Is this a current diagnosis for this admission?: Yes (3) Chronic obstructive pulmonary disease Qualifiers: COPD type: unspecified COPD Qualified Code(s): J44.9 - Chronic obstructive pulmonary disease, unspecified Is this a current diagnosis for this admission?: YesPlan: She has severe hypercapnic respiratory acidosis presently on BiPAP machine (4) Post-polio syndrome Is this a current diagnosis for this admission?: Yes
--- NOTE | 2016-06-12 21:05 | PDOC PROGRESS REPORT ---
Subjective Progress Note for:: 06/12/16 Subjective:: Patient was seen by the bedside, she is not requiring the BiPAP as much as yesterday Physical Exam Vital Signs: Temp Pulse Resp BP Pulse Ox 98.1 F 112 H 16 134/61 H 92 06/12/16 19:42 06/12/16 19:42 06/12/16 19:42 06/12/16 19:42 06/12/16 19:42 Intake & Output 06/11/16 06/12/16 06/13/16 06:59 06:59 06:59 Intake Total 1507 408 301 Output Total 250 1 Balance 1507 158 300 Weight 62.4 kg 60.9 kg General appearance: PRESENT: no acute distress Eye exam: PRESENT: PERRLA Respiratory exam: PRESENT: clear to auscultation ryley Cardiovascular exam: PRESENT: +S1, +S2 GI/Abdominal exam: PRESENT: soft Neurological exam: PRESENT: alert Results Laboratory Results: 06/11/16 04:13 06/11/16 04:13 06/12/16 04:11 Total Bilirubin 0.6 AST 14 ALT 35 Alkaline Phosphatase 63 Total Protein 5.1 L Albumin 3.0 L 06/09/16 06/09/16 06/09/16 03:27 09:58 09:58 Creatine Kinase < 20 L 34 CK-MB (CK-2) 1.47 Troponin I < 0.012 06/09/16 06/09/16 06/10/16 15:35 15:35 04:51 Creatine Kinase 29 L CK-MB (CK-2) 1.08 1.36 Troponin I < 0.012 < 0.012 Impressions: Chest X-Ray 06/08/16 21:34 IMPRESSION: Bibasilar densities as noted above. Cardiomegaly. Other findings as noted above Chest CT 06/09/16 00:00 IMPRESSION: Left basilar pneumonitis with left pleural effusion. Minimal opacities at the right lung base. Assessment & Plan - Diagnosis (1) Left lower lobe pneumonia Qualifiers: Pneumonia type: due to unspecified organism Qualified Code(s): J18.1 - Lobar pneumonia, unspecified organism Is this a current diagnosis for this admission?: YesPlan: We will continue IV antibiotic, and other treatment and of other treatment (2) Acute hypercapnic respiratory failure Is this a current diagnosis for this admission?: Yes (3) Chronic obstructive pulmonary disease Qualifiers: COPD type: unspecified COPD Qualified Code(s): J44.9 - Chronic obstructive pulmonary disease, unspecified Is this a current diagnosis for this admission?: Yes (4) Post-polio syndrome Is this a current diagnosis for this admission?: Yes
[2016-06-12] MEDS: LEVOFLOXACIN 750 MG TABLET PO SCH (21:24)
[2016-06-13] MEDS: CEFEPIME HCL 2 GM in DEXTROSE 5%-WATER 50 ML IV SCH ×2 (00:35→12:01)
[2016-06-13] MEDS: ENOXAPARIN SODIUM INJ 40 MG/0.4 ML DISP.SYRIN SUBCUT SCH (07:51)
--- NOTE | 2016-06-13 16:16 | PDOC PROGRESS REPORT ---
Subjective Progress Note for:: 06/13/16 Subjective:: Patient continue experiencing cough with sputum production. No significant chest pain. Patient is not very compliant with BiPAP usage. No nausea, vomiting or abdominal pain. P.O intake fair. Physical Exam Vital Signs: Temp Pulse Resp BP Pulse Ox 99.0 F 108 H 20 125/61 100 06/13/16 12:38 06/13/16 14:00 06/13/16 12:38 06/13/16 12:38 06/13/16 12:38 Intake & Output 06/12/16 06/13/16 06/14/16 06:59 06:59 07:59 Intake Total 408 576 222 Output Total 250 1 Balance 158 575 222 Weight 60.9 kg 60.4 kg 60.4 kg General appearance: PRESENT: no acute distress, cooperative Head exam: PRESENT: atraumatic, normocephalic Eye exam: PRESENT: conjunctiva pink, EOMI, PERRLA. ABSENT: scleral icterus Mouth exam: PRESENT: moist Respiratory exam: PRESENT: clear to auscultation ryley, decreased breath sounds Cardiovascular exam: PRESENT: RRR. ABSENT: diastolic murmur, rubs, systolic murmur GI/Abdominal exam: PRESENT: normal bowel sounds, soft. 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 Cardiomegaly. Other findings as noted above Chest CT 06/09/16 00:00 IMPRESSION: Left basilar pneumonitis with left pleural effusion. Minimal opacities at the right lung base. Assessment & Plan - Diagnosis (1) Chronic obstructive pulmonary disease Qualifiers: COPD type: unspecified COPD Qualified Code(s): J44.9 - Chronic obstructive pulmonary disease, unspecified Is this a current diagnosis for this admission?: YesPlan: See covering attending physician orders. (2) Hypercapnia Is this a current diagnosis for this admission?: YesPlan: See covering attending physician orders. (3) Left lower lobe pneumonia Qualifiers: Pneumonia type: due to unspecified organism Qualified Code(s): J18.1 - Lobar pneumonia, unspecified organism Is this a current diagnosis for this admission?: YesPlan: See covering attending physician orders. (4) Post-polio syndrome Is this a current diagnosis for this admission?: YesPlan: See covering attending physician orders. - Time Time Spent with patient: 25-34 minutes Medications reviewed and adjusted accordingly: Yes Anticipated discharge: Home with Homehealth - Inpatient Certification Based on my medical assessment, after consideration of the patient's comorbidities, presenting symptoms, or acuity I expect that the services needed warrant INPATIENT care.: Yes I certify that my determination is in accordance with my understanding of Medicare's requirements for reasonable and necessary INPATIENT services [42 CFR 412.3e].: Yes Medical Necessity: Need Close Monitoring Due to Risk of Patient Decompensation, Need For IV Fluids, Need For Continuous Telemetry Monitoring, Need for Nebulizer Therapy and Monitoring of Response, Need for IV Antibiotics, Risk of Complication if Not Cared For in Hospital Post Hospital Care: D/C Access Clinician Documentation - Plan Summary Plan Summary: See covering attending physician orders. Continue IV Cefepime and oral Levofloxacin coverage.
[2016-06-13] MEDS: LEVOFLOXACIN 750 MG TABLET PO SCH (21:46)
[2016-06-14] MEDS: CEFEPIME HCL 2 GM in DEXTROSE 5%-WATER 50 ML IV SCH ×2 (00:16→11:40)
[2016-06-14 05:02] LABS: ABSOLUTE EOSINOPHILS # (AUTO) 0.2 10^3/uL (0.0-0.6); ABSOLUTE LYMPHOCYTES (AUTO) 0.5 10^3/uL (0.5-4.7); ABSOLUTE MONOCYTES (AUTO) 0.7 10^3/uL (0.1-1.4); ABSOLUTE NEUT (AUTO) 2.5 10^3/uL (1.7-8.2); BASOPHILS % (AUTO) 0.6 % (0-2); HEMATOCRIT 35.9 % (36.0-47.0); HEMOGLOBIN 11.7 g/dL (12.0-15.5); HGB HCT DIFFERENCE -0.8; LYMPHOCYTES % (AUTO) 12.3 % (13-45); MEAN CORPUSCULAR HEMOGLOBIN 29.4 pg (27.0-33.4); MEAN CORPUSCULAR HGB CONC 32.5 g/dL (32.0-36.0); MEAN CORPUSCULAR VOLUME 91 fl (80-97); MONOCYTES % (AUTO) 16.8 % (3-13); RED BLOOD COUNT 3.97 10^6/uL (3.72-5.28); RED CELL DISTRIBUTION WIDTH 15.1 % (11.5-14.0); SEGMENTED NEUTROPHILS % (AUTO) 64.3 % (42-78); WHITE BLOOD COUNT 3.9 10^3/uL (4.0-10.5)
[2016-06-14 05:13] LABS: BLOOD UREA NITROGEN 10 mg/dL (7-20); CALCIUM 8.9 mg/dL (8.4-10.2); CHLORIDE 94 mmol/L (98-107); CREATININE RESULT 0.31 mg/dL (0.52-1.25); GLUCOSE 103 mg/dL (75-110); POTASSIUM 4.7 mmol/L (3.6-5.0); SODIUM 139.1 mmol/L (137-145)
[2016-06-14 05:30] LABS: CARBON DIOXIDE 44 mmol/L (22-30)
[2016-06-14 07:57] LABS: ANION GAP 1 (5-19)
[2016-06-14] MEDS: ENOXAPARIN SODIUM INJ 40 MG/0.4 ML DISP.SYRIN SUBCUT SCH (08:25)
--- NOTE | 2016-06-14 10:56 | PDOC PROGRESS REPORT ---
Subjective Progress Note for:: 06/14/16 Subjective:: Patient reported some improvement in her breathing and less coughing. No chest pain. Emphasized compliance with BiPAP usage. No nausea, vomiting or abdominal pain. P.O intake fair. No reported fever or chills. Physical Exam Vital Signs: Temp Pulse Resp BP Pulse Ox 98.0 F 84 22 H 117/58 L 97 06/14/16 07:52 06/14/16 07:52 06/14/16 07:52 06/14/16 07:52 06/14/16 07:52 Intake & Output 06/13/16 06/14/16 06/15/16 05:59 06:59 06:59 Intake Total Output Total Balance Weight Physical Exam: General appearance: PRESENT: no acute distress, cooperative Head exam: PRESENT: atraumatic, normocephalic Eye exam: PRESENT: conjunctiva pink, EOMI, PERRLA. ABSENT: scleral icterus Mouth exam: PRESENT: moist Respiratory exam: PRESENT: clear to auscultation ryley, decreased breath sounds Cardiovascular exam: PRESENT: RRR. ABSENT: diastolic murmur, rubs, systolic murmur GI/Abdominal exam: PRESENT: normal bowel sounds, soft. 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 Neurological exam: PRESENT: alert, oriented to person, oriented to place, oriented to time, oriented to situation Psychiatric exam: PRESENT: appropriate affect Skin exam: PRESENT: dry, warm Results Laboratory Results: 06/14/16 04:18 06/14/16 04:18 06/14/16 06/14/16 04:18 04:18 WBC 3.9 L RBC 3.97 Hgb 11.7 L Hct 35.9 L MCV 91 MCH 29.4 MCHC 32.5 RDW 15.1 H Plt Count 117 L Seg Neutrophils % 64.3 Lymphocytes % 12.3 L Monocytes % 16.8 H Eosinophils % 6.0 Basophils % 0.6 Absolute Neutrophils 2.5 Absolute Lymphocytes 0.5 Absolute Monocytes 0.7 Absolute Eosinophils 0.2 Absolute Basophils 0.0 Sodium 139.1 Potassium 4.7 Chloride 94 L Carbon Dioxide 44 H* Anion Gap 1 L BUN 10 Creatinine 0.31 L Est GFR ( Amer) > 60 Est GFR (Non-Af Amer) > 60 Glucose 103 Calcium 8.9 06/09/16 00:19 Blood Blood Culture - Final NO GROWTH IN 5 DAYS 06/09/16 06/09/16 06/09/16 03:27 09:58 09:58 Creatine Kinase < 20 L 34 CK-MB (CK-2) 1.47 Troponin I < 0.012 06/09/16 06/09/16 06/10/16 15:35 15:35 04:51 Creatine Kinase 29 L CK-MB (CK-2) 1.08 1.36 Troponin I < 0.012 < 0.012 Impressions: Chest X-Ray 06/08/16 21:34 IMPRESSION: Bibasilar densities as noted above. Cardiomegaly. Other findings as noted above Chest CT 06/09/16 00:00 IMPRESSION: Left basilar pneumonitis with left pleural effusion. Minimal opacities at the right lung base. Assessment & Plan - Diagnosis (1) Chronic obstructive pulmonary disease Qualifiers: COPD type: unspecified COPD Qualified Code(s): J44.9 - Chronic obstructive pulmonary disease, unspecified Is this a current diagnosis for this admission?: YesPlan: See covering attending physician orders. (2) Hypercapnia Is this a current diagnosis for this admission?: YesPlan: See covering attending physician orders. (3) Left lower lobe pneumonia Qualifiers: Pneumonia type: due to unspecified organism Qualified Code(s): J18.1 - Lobar pneumonia, unspecified organism Is this a current diagnosis for this admission?: YesPlan: See covering attending physician orders. (4) Post-polio syndrome Is this a current diagnosis for this admission?: YesPlan: See covering attending physician orders. - Time Time Spent with patient: 25-34 minutes Medications reviewed and adjusted accordingly: Yes Anticipated discharge: Home with Homehealth Within: Other - Inpatient Certification Based on my medical assessment, after consideration of the patient's comorbidities, presenting symptoms, or acuity I expect that the services needed warrant INPATIENT care.: Yes I certify that my determination is in accordance with my understanding of Medicare's requirements for reasonable and necessary INPATIENT services [42 CFR 412.3e].: Yes Medical Necessity: Need Close Monitoring Due to Risk of Patient Decompensation, Need For Continuous Telemetry Monitoring, Need for IV Antibiotics, Risk of Complication if Not Cared For in Hospital Post Hospital Care: D/C Policy And Planning Manager Documentation - Plan Summary Plan Summary: See covering attending physician orders.
[2016-06-14] MEDS: LEVOFLOXACIN 750 MG TABLET PO SCH (21:46)
[2016-06-15] MEDS: CEFEPIME HCL 2 GM in DEXTROSE 5%-WATER 50 ML IV SCH ×2 (00:04→11:17)
[2016-06-15] MEDS: ENOXAPARIN SODIUM INJ 40 MG/0.4 ML DISP.SYRIN SUBCUT SCH (11:15)
--- NOTE | 2016-06-15 18:10 | PDOC PROGRESS REPORT ---
Subjective Progress Note for:: 06/15/16 Subjective:: Patient was seen by the bedside, she is not requiring the positive pressure ventilation as often as she was. Physical Exam Vital Signs: Temp Pulse Resp BP Pulse Ox 98.5 F 121 H 22 H 122/56 L 97 06/15/16 12:47 06/15/16 14:00 06/15/16 12:47 06/15/16 12:47 06/15/16 12:47 Intake & Output 06/14/16 06/15/16 06/16/16 06:59 06:59 06:59 Intake Total 1548 547 Output Total Balance 1548 547 Weight 66.8 kg General appearance: PRESENT: no acute distress Head exam: PRESENT: atraumatic, normocephalic Eye exam: ABSENT: scleral icterus Ear exam: PRESENT: normal external ear exam Mouth exam: PRESENT: moist, tongue midline Neck exam: PRESENT: full ROM Respiratory exam: PRESENT: clear to auscultation ryley, other - There is chest wall deformity Cardiovascular exam: PRESENT: RRR, +S1, +S2 Pulses: PRESENT: normal dorsalis pedis pul, +2 pedal pulses bilateral Vascular exam: PRESENT: normal capillary refill GI/Abdominal exam: PRESENT: normal bowel sounds, soft Rectal exam: PRESENT: deferred Neurological exam: PRESENT: alert, awake, oriented to person, oriented to place , oriented to time, oriented to situation, CN II-XII grossly intact Psychiatric exam: PRESENT: appropriate affect, normal mood Skin exam: PRESENT: dry, intact, warm Results Laboratory Results: 06/14/16 04:18 06/14/16 04:18 06/09/16 06/09/16 06/09/16 03:27 09:58 09:58 Creatine Kinase < 20 L 34 CK-MB (CK-2) 1.47 Troponin I < 0.012 06/09/16 06/09/16 06/10/16 15:35 15:35 04:51 Creatine Kinase 29 L CK-MB (CK-2) 1.08 1.36 Troponin I < 0.012 < 0.012 Impressions: Chest X-Ray 06/08/16 21:34 IMPRESSION: Bibasilar densities as noted above. Cardiomegaly. Other findings as noted above Chest CT 06/09/16 00:00 IMPRESSION: Left basilar pneumonitis with left pleural effusion. Minimal opacities at the right lung base. Assessment & Plan - Diagnosis (1) Left lower lobe pneumonia Qualifiers: Pneumonia type: due to unspecified organism Qualified Code(s): J18.1 - Lobar pneumonia, unspecified organism Is this a current diagnosis for this admission?: YesPlan: Blood culture grew staph epi most likely contamination, chest x-ray is ordered (2) Acute hypercapnic respiratory failure Is this a current diagnosis for this admission?: Yes (3) Chronic obstructive pulmonary disease Qualifiers: COPD type: unspecified COPD Qualified Code(s): J44.9 - Chronic obstructive pulmonary disease, unspecified Is this a current diagnosis for this admission?: Yes (4) Post-polio syndrome Is this a current diagnosis for this admission?: Yes
[2016-06-15] MEDS: LEVOFLOXACIN 750 MG TABLET PO SCH (22:13)
[2016-06-16] MEDS: CEFEPIME HCL 2 GM in DEXTROSE 5%-WATER 50 ML IV SCH ×3 (00:01→12:02)
[2016-06-16 09:44] LABS: ABSOLUTE EOSINOPHILS # (AUTO) 0.2 10^3/uL (0.0-0.6); ABSOLUTE LYMPHOCYTES (AUTO) 0.6 10^3/uL (0.5-4.7); ABSOLUTE MONOCYTES (AUTO) 0.4 10^3/uL (0.1-1.4); BASOPHILS % (AUTO) 0.9 % (0-2); EOSINOPHILS % (AUTO) 6.3 % (0-6); HEMOGLOBIN 11.9 g/dL (12.0-15.5); HGB HCT DIFFERENCE -2.3; LYMPHOCYTES % (AUTO) 18.2 % (13-45); MEAN CORPUSCULAR HEMOGLOBIN 28.8 pg (27.0-33.4); MEAN CORPUSCULAR HGB CONC 31.3 g/dL (32.0-36.0); MEAN CORPUSCULAR VOLUME 92 fl (80-97); MONOCYTES % (AUTO) 11.6 % (3-13); RED BLOOD COUNT 4.13 10^6/uL (3.72-5.28); RED CELL DISTRIBUTION WIDTH 15.3 % (11.5-14.0); WHITE BLOOD COUNT 3.3 10^3/uL (4.0-10.5)
[2016-06-16 10:01] LABS: BLOOD UREA NITROGEN 10 mg/dL (7-20); CALCIUM 9.2 mg/dL (8.4-10.2); CHLORIDE 92 mmol/L (98-107); GLUCOSE 122 mg/dL (75-110); POTASSIUM 4.1 mmol/L (3.6-5.0); SODIUM 141.7 mmol/L (137-145)
[2016-06-16 10:11] LABS: ANION GAP 5 (5-19)
[2016-06-16 10:12] LABS: CARBON DIOXIDE 45 mmol/L (22-30)
[2016-06-16] MEDS: ENOXAPARIN SODIUM INJ 40 MG/0.4 ML DISP.SYRIN SUBCUT SCH (10:17)
[2016-06-16] MEDS: ALPRAZOLAM 0.25 MG TABLET PO PRN (11:27)
[2016-06-16 19:23] LABS: ARTERIAL BLOOD BASE EXCESS 14.2 mmol/L; ARTERIAL BLOOD O2 SATURATION 90.4 % (94-98)
--- NOTE | 2016-06-16 19:40 | PDOC PROGRESS REPORT ---
Subjective Progress Note for:: 06/16/16 Subjective:: Patient had episode of anxiety this afternoon, she was asking for BiPAP continuously, she had a low dose Xanax and that seems to help the anxiety episode that she was manifesting. Blood gas on FiO2 of 3 L, pH 7.31, PCO2 89.5 , bicarbonate 44.4, PO2 67.1. She was admitted for pneumonia, she has COPD with deformity of the chest wall. Physical Exam Vital Signs: Temp Pulse Resp BP Pulse Ox 99.2 F 95 24 H 112/59 L 96 06/16/16 16:20 06/16/16 16:20 06/16/16 16:20 06/16/16 16:20 06/16/16 16:20 Intake & Output 06/15/16 06/16/16 06/17/16 06:59 06:59 06:59 Intake Total 1548 1258 1032 Balance 1548 1258 1032 Weight 66.8 kg 62.8 kg General appearance: PRESENT: mild distress Eye exam: PRESENT: PERRLA Respiratory exam: PRESENT: decreased breath sounds Cardiovascular exam: PRESENT: +S1, +S2 GI/Abdominal exam: PRESENT: soft Neurological exam: PRESENT: alert, CN II-XII grossly intact Results Laboratory Results: 06/16/16 09:12 06/16/16 09:12 06/16/16 06/16/16 06/16/16 09:12 09:12 18:10 WBC 3.3 L RBC 4.13 Hgb 11.9 L Hct 38.0 MCV 92 MCH 28.8 MCHC 31.3 L RDW 15.3 H Plt Count 119 L Seg Neutrophils % 63.0 Lymphocytes % 18.2 Monocytes % 11.6 Eosinophils % 6.3 H Basophils % 0.9 Absolute Neutrophils 2.0 Absolute Lymphocytes 0.6 Absolute Monocytes 0.4 Absolute Eosinophils 0.2 Absolute Basophils 0.0 Carbonic Acid 2.69 H HCO3/H2CO3 Ratio 16:1 ABG pH 7.31 L ABG pCO2 89.5 H* ABG pO2 67.1 L ABG HCO3 44.4 H ABG O2 Saturation 90.4 L ABG Base Excess 14.2 FiO2 3L Sodium 141.7 Potassium 4.1 Chloride 92 L Carbon Dioxide 45 H* Anion Gap 5 BUN 10 Creatinine 0.50 L Est GFR ( Amer) > 60 Est GFR (Non-Af Amer) > 60 Glucose 122 H Calcium 9.2 06/11/16 12:19 Blood Blood Culture - Final NO GROWTH IN 5 DAYS 06/11/16 12:10 Blood Blood Culture - Final NO GROWTH IN 5 DAYS 06/09/16 06/09/16 06/09/16 03:27 09:58 09:58 Creatine Kinase < 20 L 34 CK-MB (CK-2) 1.47 Troponin I < 0.012 06/09/16 06/09/16 06/10/16 15:35 15:35 04:51 Creatine Kinase 29 L CK-MB (CK-2) 1.08 1.36 Troponin I < 0.012 < 0.012 Impressions: Chest CT 06/09/16 00:00 IMPRESSION: Left basilar pneumonitis with left pleural effusion. Minimal opacities at the right lung base. Chest X-Ray 06/15/16 00:00 IMPRESSION: CARDIOMEGALY. HAZY PARENCHYMAL OPACITIES AND POSSIBLE PLEURAL EFFUSIONS. NO CHANGE SINCE THE PREVIOUS STUDY. Assessment & Plan - Diagnosis (1) Left lower lobe pneumonia Qualifiers: Pneumonia type: due to unspecified organism Qualified Code(s): J18.1 - Lobar pneumonia, unspecified organism Is this a current diagnosis for this admission?: Yes (2) Acute hypercapnic respiratory failure Is this a current diagnosis for this admission?: YesPlan: Patient is compensating metabolically for the acute respiratory acidosis, she had a standby BiPAP if needed (3) Chronic obstructive pulmonary disease Qualifiers: COPD type: unspecified COPD Qualified Code(s): J44.9 - Chronic obstructive pulmonary disease, unspecified Is this a current diagnosis for this admission?: Yes (4) Post-polio syndrome Is this a current diagnosis for this admission?: Yes (5) Acute respiratory acidosis Is this a current diagnosis for this admission?: Yes
[2016-06-16] MEDS: LEVOFLOXACIN 750 MG TABLET PO SCH (22:38)
[2016-06-17] MEDS: CEFEPIME HCL 2 GM in DEXTROSE 5%-WATER 50 ML IV SCH ×2 (00:54→13:15)
[2016-06-17] MEDS: ENOXAPARIN SODIUM INJ 40 MG/0.4 ML DISP.SYRIN SUBCUT SCH (08:46)
[2016-06-17] MEDS: ALPRAZOLAM 0.25 MG TABLET PO PRN (15:56)
[2016-06-17] MEDS: IPRATROPIUM/ALBUTEROL 0.5-2.5 MG/3 ML AMPUL NEB PRN (16:03)
--- NOTE | 2016-06-17 16:46 | PDOC PROGRESS REPORT ---
Subjective Progress Note for:: 06/17/16 Subjective:: Patient continues to require noninvasive positive pressure ventilation, BiPAP she may need to be discharged home on trilogy, I will be obtaining consultation from pulmonary Physical Exam Vital Signs: Temp Pulse Resp BP Pulse Ox 98.2 F 106 H 20 141/63 H 96 06/17/16 15:19 06/17/16 15:19 06/17/16 15:19 06/17/16 15:19 06/17/16 15:19 Intake & Output 06/16/16 06/17/16 06/18/16 06:59 06:59 06:59 Intake Total 1258 2031 Balance 1258 2031 Weight 62.8 kg 63 kg General appearance: PRESENT: mild distress, other - She is on BiPAP Eye exam: PRESENT: PERRLA Respiratory exam: PRESENT: decreased breath sounds Cardiovascular exam: PRESENT: +S1, +S2 GI/Abdominal exam: PRESENT: soft Neurological exam: PRESENT: alert, CN II-XII grossly intact Results Laboratory Results: 06/16/16 09:12 06/16/16 09:12 06/16/16 18:10 Carbonic Acid 2.69 H HCO3/H2CO3 Ratio 16:1 ABG pH 7.31 L ABG pCO2 89.5 H* ABG pO2 67.1 L ABG HCO3 44.4 H ABG O2 Saturation 90.4 L ABG Base Excess 14.2 FiO2 3L 06/09/16 06/09/16 06/09/16 03:27 09:58 09:58 Creatine Kinase < 20 L 34 CK-MB (CK-2) 1.47 Troponin I < 0.012 06/09/16 06/09/16 06/10/16 15:35 15:35 04:51 Creatine Kinase 29 L CK-MB (CK-2) 1.08 1.36 Troponin I < 0.012 < 0.012 Impressions: Chest CT 06/09/16 00:00 IMPRESSION: Left basilar pneumonitis with left pleural effusion. Minimal opacities at the right lung base. Chest X-Ray 06/15/16 00:00 IMPRESSION: CARDIOMEGALY. HAZY PARENCHYMAL OPACITIES AND POSSIBLE PLEURAL EFFUSIONS. NO CHANGE SINCE THE PREVIOUS STUDY. Assessment & Plan - Diagnosis (1) Left lower lobe pneumonia Qualifiers: Pneumonia type: due to unspecified organism Qualified Code(s): J18.1 - Lobar pneumonia, unspecified organism Is this a current diagnosis for this admission?: Yes (2) Acute hypercapnic respiratory failure Is this a current diagnosis for this admission?: Yes (3) Chronic obstructive pulmonary disease Qualifiers: COPD type: unspecified COPD Qualified Code(s): J44.9 - Chronic obstructive pulmonary disease, unspecified Is this a current diagnosis for this admission?: Yes (4) Post-polio syndrome Is this a current diagnosis for this admission?: Yes (5) Acute respiratory acidosis Is this a current diagnosis for this admission?: YesPlan: Patient continues to require BiPAP machine to support breathing, she may need to go home on positive pressure ventilation, I be obtaining consultation from pulmonary
[2016-06-17] MEDS: LEVOFLOXACIN 750 MG TABLET PO SCH (22:07)
[2016-06-18] MEDS: CEFEPIME HCL 2 GM in DEXTROSE 5%-WATER 50 ML IV SCH ×3 (00:30→12:22)
[2016-06-18] MEDS: IPRATROPIUM/ALBUTEROL 0.5-2.5 MG/3 ML AMPUL NEB PRN (08:21)
[2016-06-18] MEDS: ENOXAPARIN SODIUM INJ 40 MG/0.4 ML DISP.SYRIN SUBCUT SCH (10:07)
[2016-06-18] MEDS: ALPRAZOLAM 0.25 MG TABLET PO PRN ×2 (10:07→21:53)
--- NOTE | 2016-06-18 11:29 | PDOC CONSULTATION ---
Consultation Consult Date: 06/18/16 Attending physician:: KIMI CANELA Consult reason:: ACUTE/CHRONIC HYPOXIC,HYPERCAPNIC RESP FAILURE History of Present Illness Admission Date/PCP: 06/08/16 23:57 KIMI CANELA MD History of Present Illness: MITCH ORELLANA is a 66 year old female with history of chronic respiratory failure on home oxygen, she has postpolio syndrome with chest deformity severe scoliosis on COPD, she complains of shortness of breath, she said pulse oximetry reading was in the low 70s at home that is when she called the rescue squad. When she arrived in the emergency room she was evaluated venous blood gas was done showed PCO2 of 85 a chest x-ray was done that suggest pneumonia, I ordered CT chest that showed left basilar opacity consistent with pneumonic changes. Pt known to our service and she would benefit from non invasive mechanical ventilation via the Trilogy AVAPS/AE and faster responding AVAPS rate. The trilogy is able to proivde a target tidal volume and auto adjusting the EPAP pressure to maintain a patient airway as well as an auto back up rate. This machine will help impove PaCo2 levels. The severity of the patient's condition will lead to future hospital re-admmissions and life threatening situations without the use of this device Past Medical History Cardiac Medical History: Reports: Hypertension Denies: Coronary Artery Disease, Myocardial Infarction Pulmonary Medical History: Reports: Chronic Obstructive Pulmonary Disease (COPD) , Pneumonia - WHEN I WAS 7 YRS OLD, Respiratory Failure Denies: Asthma, Bronchitis Neurological Medical History: Denies: Seizures GI Medical History: Denies: Hepatitis, Hiatal Hernia Musculoskeltal Medical History: Reports: Arthritis Psychiatric Medical History: Reports: Depression Past Surgical History Past Surgical History: Reports: Orthopedic Surgery - spinal fusion Denies: Hysterectomy, Mastectomy, Pacemaker Social History Information Source: Patient, [facility], [facility] Records Smoking Status: Never Smoker Passive smoke exposure as: Both Frequency of Alcohol Use: None Hx Recreational Drug Use: No Hx Prescription Drug Abuse: No Do you have pets?: No Have you had any respiratory illnesses as a child?: Yes Have you been exposed to any sick contacts recently?: No Have you travelled outside of [place] in the past 12 months?: No - Advance Directive Resuscitation Status: Full Code Family History Family History: Reviewed & Not Pertinent Parental Family History Reviewed: Yes Children Family History Reviewed: Yes Sibling(s) Family History Reviewed.: Yes Medication/Allergy Home Medications: Aspirin [Ecotrin 81 mg EC Tablet] 81 mg PO DAILY 06/09/16 Ipratropium/Albuterol Sulfate [Duoneb 3 ml Ampul] 3 ml NEB RTQ6 06/09/16 Losartan/Hydrochlorothiazide [Hyzaar 50-12.5 Tablet] 1 each PO DAILY 06/09/16 Metoprolol Succinate [Toprol XL 100 mg Tablet] 100 mg PO DAILY 06/09/16 Allergies/Adverse Reactions: No Known Allergies Allergy (Verified 10/25/14 09:26) Physical Exam Vital Signs: Temp Pulse Resp BP Pulse Ox 97.4 F 78 20 136/66 H 94 06/18/16 07:41 06/18/16 08:21 06/18/16 08:21 06/18/16 07:41 06/18/16 08:21 Intake & Output 06/17/16 06/18/16 06/19/16 06:59 06:59 06:59 Intake Total 2031 2177 Balance 2031 2177 Weight 63 kg General appearance: PRESENT: disheveled, mild distress, other - Moderately severe kyphoscoliosis Head exam: PRESENT: atraumatic, normocephalic Eye exam: PRESENT: conjunctiva pale, EOMI Mouth exam: PRESENT: moist, neck supple, tongue midline Neck exam: ABSENT: carotid bruit, JVD, lymphadenopathy, thyromegaly Respiratory exam: PRESENT: decreased breath sounds, prolonged expiratory phas, rales, rhonchi, symmetrical, wheezes Cardiovascular exam: PRESENT: RRR, +S1, +S2 Pulses: PRESENT: normal radial pulses GI/Abdominal exam: PRESENT: normal bowel sounds, soft Rectal exam: PRESENT: deferred Musculoskeletal exam: PRESENT: normal inspection Neurological exam: PRESENT: alert, awake Psychiatric exam: PRESENT: normal mood Skin exam: PRESENT: warm Results Laboratory Results: 06/16/16 09:12 06/16/16 09:12 06/09/16 06/09/16 06/09/16 03:27 09:58 09:58 Creatine Kinase < 20 L 34 CK-MB (CK-2) 1.47 Troponin I < 0.012 06/09/16 06/09/16 06/10/16 15:35 15:35 04:51 Creatine Kinase 29 L CK-MB (CK-2) 1.08 1.36 Troponin I < 0.012 < 0.012 Impressions: Chest CT 06/09/16 00:00 IMPRESSION: Left basilar pneumonitis with left pleural effusion. Minimal opacities at the right lung base. Chest X-Ray 06/15/16 00:00 IMPRESSION: CARDIOMEGALY. HAZY PARENCHYMAL OPACITIES AND POSSIBLE PLEURAL EFFUSIONS. NO CHANGE SINCE THE PREVIOUS STUDY. Assessment & Plan - Diagnosis (1) Acute hypercapnic respiratory failure Is this a current diagnosis for this admission?: YesPlan: Patient would benefit from non invasive mechanical ventilation via the Trilogy AVAPS/AE and faster responding AVAPS rate. The trilogy is able to proivde a target tidal volume and auto adjusting the EPAP pressure to maintain a patient airway as well as an auto back up rate. This machine will help impove PaCo2 levels. The severity of the patient's condition will lead to future hospital re- admmissions and life threatening situations without the use of this device.TRILOGY HOME VENT NEEDED FOR HYPERCAPNIC RESP FAILURE (2) Acute respiratory acidosis Is this a current diagnosis for this admission?: YesPlan: Hypercapnia should improve with decrease of PCO2 by way of noninvasive positive pressure ventilation (3) Chronic obstructive pulmonary disease Qualifiers: COPD type: unspecified COPD Qualified Code(s): J44.9 - Chronic obstructive pulmonary disease, unspecified Is this a current diagnosis for this admission?: YesPlan: Continue current bronchodilator therapy
--- NOTE | 2016-06-18 18:58 | PDOC DISCHARGE SUMMARY ---
General - Admit/Disc Date/PCP Admission Date/Primary Care Provider: 06/08/16 23:57 KIMI CANELA MD Discharge Date: 06/19/16 - Discharge Diagnosis (1) Left lower lobe pneumonia Is this a current diagnosis for this admission?: Yes (2) Acute hypercapnic respiratory failure Is this a current diagnosis for this admission?: Yes (3) Chronic obstructive pulmonary disease Is this a current diagnosis for this admission?: Yes (4) Post-polio syndrome Is this a current diagnosis for this admission?: Yes (5) Acute respiratory acidosis Is this a current diagnosis for this admission?: Yes - Additional Information Resuscitation Status: Full Code Home Medications: Aspirin [Ecotrin 81 mg EC Tablet] 81 mg PO DAILY 06/09/16 Ipratropium/Albuterol Sulfate [Duoneb 3 ml Ampul] 3 ml NEB RTQ6 06/09/16 Losartan/Hydrochlorothiazide [Hyzaar 50-12.5 Tablet] 1 each PO DAILY 06/09/16 Metoprolol Succinate [Toprol XL 100 mg Tablet] 100 mg PO DAILY 06/09/16 History of Present Illness History of Present Illness: MITCH ORELLANA is a 66 year old female with history of chronic respiratory failure on home oxygen, she has postpolio syndrome with chest deformity severe scoliosis on COPD, she complains of shortness of breath, she said pulse oximetry reading was in the low 70s at home that is when she called the rescue squad. When she arrived in the emergency room she was evaluated venous blood gas was done showed PCO2 of 85 a chest x-ray was done that suggest pneumonia, I ordered CT chest that showed left basilar opacity consistent with pneumonic changes. Hospital Course Hospital Course: She was admitted because of pneumonia on acute hypercapnic respiratory failure, she was treated with IV antibiotic on she required positive pressure ventilation with BiPAP. Patient hospital course was prolonged because of the requirement for BiPAP machine to support breathing she was treated empirically with IV antibiotic for pneumonia, she was treated with IV Levaquin and cefepime. Blood culture grew Staphylococcus epidermidis most likely is contamination. Consultation was requested from pulmonary because of the need for noninvasive positive pressure ventilation on discharge, she required trilogy , a noninvasive positive pressure ventilation to help maintain breathing. She has postpolio syndrome with significant chest deformity and COPD. Physical Exam Vital Signs: Temp Pulse Resp BP Pulse Ox 98.1 F 105 H 20 126/57 H 96 06/18/16 11:35 06/18/16 14:00 06/18/16 11:35 06/18/16 11:35 06/18/16 16:55 Intake & Output 06/17/16 06/18/16 06/19/16 06:59 06:59 06:59 Intake Total 20318 360 Balance 2031 2177 360 Weight 63 kg General appearance: PRESENT: no acute distress Eye exam: PRESENT: PERRLA Respiratory exam: PRESENT: clear to auscultation ryley Cardiovascular exam: PRESENT: +S1, +S2 GI/Abdominal exam: PRESENT: soft Neurological exam: PRESENT: alert Results Laboratory Results: 06/16/16 09:12 06/16/16 09:12 06/09/16 06/09/16 06/09/16 03:27 09:58 09:58 Creatine Kinase < 20 L 34 CK-MB (CK-2) 1.47 Troponin I < 0.012 06/09/16 06/09/16 06/10/16 15:35 15:35 04:51 Creatine Kinase 29 L CK-MB (CK-2) 1.08 1.36 Troponin I < 0.012 < 0.012 Impressions: Chest CT 06/09/16 00:00 IMPRESSION: Left basilar pneumonitis with left pleural effusion. Minimal opacities at the right lung base. Chest X-Ray 06/15/16 00:00 IMPRESSION: CARDIOMEGALY. HAZY PARENCHYMAL OPACITIES AND POSSIBLE PLEURAL EFFUSIONS. NO CHANGE SINCE THE PREVIOUS STUDY.
[2016-06-18] MEDS: BUDESONIDE NEB 0.5 MG/2 ML AMPUL NEB SCH (20:10)
[2016-06-18] MEDS: LEVOFLOXACIN 750 MG TABLET PO SCH (21:53)
[2016-06-19] MEDS: IPRATROPIUM/ALBUTEROL 0.5-2.5 MG/3 ML AMPUL NEB PRN (08:08)
[2016-06-19] MEDS: BUDESONIDE NEB 0.5 MG/2 ML AMPUL NEB SCH (08:08)
[2016-06-19] MEDS: ENOXAPARIN SODIUM INJ 40 MG/0.4 ML DISP.SYRIN SUBCUT SCH (09:33)
[2016-06-19 09:52] VITALS: BP 105/60
== END 2016-06-19 11:55 | disposition home health service (06) | DRG 190 ==
LOC: ER 20:20 → EH 23:11 → UNDOADMIN 23:11 → EH 23:57 → 3N 06-09 09:49
PROVIDERS: ADMIT Internal Medicine; ATTEND Internal Medicine
PROC: 5A09557 Assistance with Respiratory Ventilation, Greater than 96 Consecutive Hours, Continuous Positive Airway Pressure (ICD-10-PCS; principal; 2016-06-08)
PROC: 3E0F73Z Introduction of Anti-inflammatory into Respiratory Tract, Via Natural or Artificial Opening (ICD-10-PCS; 2016-06-09)
DX: J44.0 Chronic obstructive pulmonary disease with (acute) lower respiratory infection (principal); J18.1 Lobar pneumonia, unspecified organism; J96.22 Acute and chronic respiratory failure with hypercapnia; E87.2 Acidosis; J44.9 Chronic obstructive pulmonary disease, unspecified; G14 Postpolio syndrome; M41.9 Scoliosis, unspecified; I10 Essential (primary) hypertension; M19.90 Unspecified osteoarthritis, unspecified site; F32.9 Major depressive disorder, single episode, unspecified; Z99.81 Dependence on supplemental oxygen; Z79.899 Other long term (current) drug therapy; Z79.82 Long term (current) use of aspirin
CPT/HCPCS: 36415; 36600; 71010; 71250; 80048; 80053; 80076; 80307; 81001; 82140; 82550; 82553; 82803; 83036; 83880; 84439; 84443; 84484; 85025; 87040; 87077; 87086; 87186; 93005; 93010; 94660; 99291; J0692; J1650; J1956; J7620

== ENCOUNTER 2017-08-22 02:46 | Emergency (ER) | payer MEDICARE, MEDICAID ==
[2017-08-22 03:00] VITALS: BP 166/75
--- NOTE | 2017-08-22 03:22 | RADIOLOGY REPORT (SQ) ---
EXAM DESCRIPTION: 4 views of the right wrist CLINICAL HISTORY: fall COMPARISON: None. FINDINGS: 4 views of the right wrist. Acute comminuted likely intra-articular impaction fracture of the distal right radius without significant angulation or displacement. No definite ulnar styloid fracture. Osteopenia. IMPRESSION: 1. Acute comminuted likely intra-articular impaction fracture of the distal right radius without significant angulation or displacement.
--- NOTE | 2017-08-22 03:47 | ER Document Report ---
ED Hand/Wrist Injury - General Chief Complaint: Wrist Injury Stated Complaint: WRIST SWELLING Time Seen by Provider: 08/22/17 02:49 Mode of Arrival: Medic Information source: Patient Notes: Patient is a 67-year-old female with end-stage COPD on hospice who presents to the ER today for right wrist pain after falling prior to arrival at home and trying to catch herself with the right hand. Patient is admitting to the pain traveling up the forearm midway. She has a history of osteoporosis. Patient denies any numbness or tingling. Denies hitting her head or loss of consciousness. She denies pain anywhere else. TRAVEL OUTSIDE OF THE [place] IN LAST 30 DAYS: No - Related Data Allergies/Adverse Reactions: No Known Allergies Allergy (Verified 10/25/14 09:26) Past Medical History - General Information source: Patient - Social History Smoking Status: Unknown if Ever Smoked Chew tobacco use (# tins/day): No Frequency of alcohol use: None Drug Abuse: None Family History: Reviewed & Not Pertinent Patient has suicidal ideation: No Patient has homicidal ideation: No - Past Medical History Cardiac Medical History: Reports: Hx Hypertension Denies: Hx Coronary Artery Disease, Hx Heart Attack Pulmonary Medical History: Reports: Hx COPD, Hx Pneumonia - WHEN I WAS 7 YRS OLD , Hx Respiratory Failure Denies: Hx Asthma, Hx Bronchitis Neurological Medical History: Denies: Hx Cerebrovascular Accident, Hx Seizures Renal/ Medical History: Denies: Hx Peritoneal Dialysis GI Medical History: Denies: Hx Hepatitis, Hx Hiatal Hernia, Hx Ulcer Musculoskeltal Medical History: Reports Hx Arthritis Psychiatric Medical History: Reports: Hx Depression Infectious Medical History: Denies: Hx Hepatitis Past Surgical History: Reports: Hx Orthopedic Surgery - spinal fusion. Denies: Hx Hysterectomy, Hx Mastectomy, Hx Open Heart Surgery, Hx Pacemaker - Immunizations Hx Diphtheria, Pertussis, Tetanus Vaccination: Yes Hx Pneumococcal Vaccination: 04/05/11 Review of Systems - Review of Systems Constitutional: No symptoms reported EENT: No symptoms reported Cardiovascular: No symptoms reported Respiratory: No symptoms reported Gastrointestinal: No symptoms reported Genitourinary: No symptoms reported Female Genitourinary: No symptoms reported Musculoskeletal: See HPI Skin: No symptoms reported Hematologic/Lymphatic: No symptoms reported Neurological/Psychological: No symptoms reported Physical Exam - Vital signs Vitals: Temp Pulse Resp BP Pulse Ox 99.1 F 75 20 166/75 H 98 08/22/17 02:57 08/22/17 02:57 08/22/17 02:57 08/22/17 02:57 08/22/17 02:57 - Notes Notes: PHYSICAL EXAMINATION: GENERAL: Chronically ill-appearing, on nasal cannula oxygen, but in no acute distress. HEAD: Atraumatic, normocephalic. EYES: Pupils equal round and reactive to light, extraocular movements intact, sclera anicteric, conjunctiva are normal. NECK: Normal range of motion, supple without lymphadenopathy LUNGS: On nasal cannula oxygen, CTAB and equal. No wheezes rales or rhonchi. HEART: Regular rate and rhythm without murmurs BACK: no vertebral tenderness, normal ROM GI/: no CVA tenderness EXTREMITIES: See skin below, decreased range of motion of the right wrist secondary to pain, no pitting edema. No cyanosis. NEUROLOGICAL: Cranial nerves grossly intact. Normal sensory/motor exams. PSYCH: Normal mood, normal affect. SKIN: Warm, Dry, normal turgor, edema and mild ecchymosis noted over right dorsal wrist, tender to palpation, no deformity noted Course - Re-evaluation Re-evalutation: 08/22/17 19:14 Patient has an acute comminuted fracture of the right distal radius, no dislocation, patient placed in splint here and given orthopedic information for follow-up. Patient is at her baseline with her COPD, speaking to me in complete sentences with her oxygen that she is usually on at home. - Vital Signs Vital signs: Temp Pulse Resp BP Pulse Ox 99.1 F 75 20 166/75 H 98 08/22/17 02:57 08/22/17 02:57 08/22/17 02:57 08/22/17 02:57 08/22/17 02:57 Discharge - Discharge Clinical Impression: Right radial fracture Qualifiers: Encounter type: initial encounter Radius location: distal physis (incl. Salter- Schreiber) Fracture alignment: nondisplaced Qualified Code(s): S59.201A - Unspecified physeal fracture of lower end of radius, right arm, initial encounter for closed fracture Condition: Stable Disposition: HOME, SELF-CARE Additional Instructions: Return immediately for any new or worsening symptoms. Follow up with ortho, call tomorrow to make followup appointment. Referrals: KIMI CANELA MD [Primary Care Provider] - Follow up as needed DANELLE MORALES DO [ACTIVE STAFF] - Follow up as needed
== END 2017-08-22 08:00 | disposition home or self-care (01) ==
LOC: ER 02:46
PROC: 2W3CX1Z Immobilization of Right Lower Arm using Splint (ICD-10-PCS; principal; 2017-08-22)
DX: S59.201A Unspecified physeal fracture of lower end of radius, right arm, initial encounter for closed fracture (principal); M25.531 Pain in right wrist; M79.89 Other specified soft tissue disorders; M79.631 Pain in right forearm; W19.XXXA Unspecified fall, initial encounter; Y92.009 Unspecified place in unspecified non-institutional (private) residence as the place of occurrence of the external cause; J44.9 Chronic obstructive pulmonary disease, unspecified; I10 Essential (primary) hypertension
CPT/HCPCS: 99283

== ENCOUNTER → 2017-09-13 | Outpatient (CLI) | payer MEDICARE, MEDICAID ==
--- NOTE | 2017-09-13 16:04 | XCELERA REPORT ---
[address] [address] Lower Extremity Venous Evaluation Name: MITCH ORELLANA Age: 67 yrs Gender: Female : 1950 Patient Status: Outpatient Patient Location: Study Date: 09/13/2017 02:02 PM Procedure: Color flow and duplex imaging of the veins of the left lower extremity as well as the right Common Femoral vein. Reason For Study: LLE SWELLING Ordering Physician: KIMI CANELA Performed By: Stephanie Khan Right Sided Venous Evaluation The right common femoral vein is fully compressible. Spontaneous and phasic flow is present in the right common femoral vein. Left Sided Venous Evaluation Normal vessel filling wall to wall, compression and augmentation as well as Colour flow down to the infrageniculate veins. Interpretation Summary No duplex evidence of DVT or obstruction in the left lower extremity nor in the right Common Femoral vein. : KIMI CANELA > Dung [place]
== END ==
LOC: SP 13:32
PROVIDERS: ATTEND Internal Medicine
DX: R22.42 Localized swelling, mass and lump, left lower limb (principal)
CPT/HCPCS: 93971

== ENCOUNTER 2017-11-24 19:28 | Inpatient (IN) | payer MEDICARE, MEDICAID ==
--- NOTE | 2017-11-24 19:46 | ER Document Report ---
ED Fall - General Chief Complaint: Fall Injury Stated Complaint: FALL/HIP PAIN Time Seen by Provider: 11/24/17 19:46 Mode of Arrival: Stretcher Information source: Patient Notes: Patient slipped and fell fell off her chair at home. She is complaining of right hip pain. TRAVEL OUTSIDE OF THE [place] IN LAST 30 DAYS: No - HPI Occurred: Just prior to arrival Where: Home Context: Slipped, Fell from sitting Associated symptoms: None Location of injury/pain: Hip Quality of pain: Sharp Severity: Severe Pain Level: 5 - Related data Allergies/Adverse Reactions: No Known Allergies Allergy (Verified 10/25/14 09:26) Past Medical History - Social History Smoking Status: Unknown if Ever Smoked Family History: Reviewed & Not Pertinent - Past Medical History Cardiac Medical History: Reports: Hx Hypertension Denies: Hx Coronary Artery Disease, Hx Heart Attack Pulmonary Medical History: Reports: Hx COPD, Hx Pneumonia - WHEN I WAS 7 YRS OLD , Hx Respiratory Failure Denies: Hx Asthma, Hx Bronchitis Neurological Medical History: Denies: Hx Cerebrovascular Accident, Hx Seizures Renal/ Medical History: Denies: Hx Peritoneal Dialysis GI Medical History: Denies: Hx Hepatitis, Hx Hiatal Hernia, Hx Ulcer Musculoskeletal Medical History: Reports Hx Arthritis Psychiatric Medical History: Reports: Hx Depression Infectious Medical History: Denies: Hx Hepatitis Past Surgical History: Reports: Hx Orthopedic Surgery - spinal fusion. Denies: Hx Hysterectomy, Hx Mastectomy, Hx Open Heart Surgery, Hx Pacemaker - Immunizations Hx Diphtheria, Pertussis, Tetanus Vaccination: Yes Hx Pneumococcal Vaccination: 04/05/11 Review of Systems - Review of Systems Constitutional: denies: Chills, Fever EENT: No symptoms reported Cardiovascular: denies: Chest pain, Palpitations, Heart racing Respiratory: Cough, Short of breath Gastrointestinal: No symptoms reported Genitourinary: No symptoms reported Female Genitourinary: No symptoms reported Musculoskeletal: Joint pain Skin: No symptoms reported Hematologic/Lymphatic: No symptoms reported Neurological/Psychological: No symptoms reported -: Yes All other systems reviewed and negative Physical Exam - Vital signs Vitals: Temp Resp Pulse Ox 98.5 F 37 H 87 L 11/24/17 19:48 11/24/17 19:48 11/24/17 19:48 - General General appearance: Appears well, Alert In distress: None - HEENT Head: Normocephalic, Atraumatic Eyes: Normal Pupils: PERRL - Respiratory Respiratory status: No respiratory distress, Respiratory distress, Tachypnea Chest status: Nontender Breath sounds: Normal Chest palpation: Normal - Cardiovascular Rhythm: Regular Heart sounds: Normal auscultation Murmur: No - Abdominal Inspection: Normal Distension: No distension Bowel sounds: Normal Tenderness: Nontender Organomegaly: No organomegaly - Back Back: Normal, Nontender - Extremities General upper extremity: Normal inspection General lower extremity: Tender Shoulder: Normal Arm: Normal Elbow: Normal Forearm: Normal Wrist: Normal Hand: Normal Hip: Tender Thigh: Normal Knee: Tender Calf: Normal Ankle: Normal Foot: Tender - Neurological Neuro grossly intact: Yes Cognition: Normal Orientation: AAOx4 [place] Coma Scale Eye Opening: Spontaneous [place] Coma Scale Verbal: Oriented [place] Coma Scale Motor: Obeys Commands [place] Coma Scale Total: 15 Speech: Normal Motor strength normal: LUE, RUE, LLE, RLE Sensory: Normal - Psychological Associated symptoms: Normal affect, Normal mood - Skin Skin Temperature: Warm Skin Moisture: Dry Skin Color: Normal Course - Re-evaluation Re-evalutation: 11/25/17 03:17 I discussed patient care with Dr. Ginny Corcoran. We will admit patient to the hospital for further evaluation and management. - Vital Signs Vital signs: Temp Pulse Resp BP Pulse Ox 97.8 F 106 H 15 127/67 H 99 11/25/17 02:25 11/25/17 02:25 11/25/17 02:25 11/25/17 02:25 11/25/17 02:25 - Laboratory Result Diagrams: 11/24/17 21:00 11/24/17 21:00 Laboratory results interpreted by me: 11/24/17 11/24/17 11/24/17 21:00 21:00 22:30 WBC 17.3 H RDW 14.2 H Seg Neutrophils % 80.9 H Lymphocytes % 12.1 L Absolute Neutrophils 14.0 H D-Dimer Carbonic Acid 2.79 H ABG pH 7.14 L* ABG pCO2 92.6 H* ABG HCO3 30.7 H ABG Total CO2 33.6 H ABG O2 Saturation 93.4 L Creatinine 0.44 L Glucose 130 H 11/24/17 23:25 WBC RDW Seg Neutrophils % Lymphocytes % Absolute Neutrophils D-Dimer > 20.00 H* Carbonic Acid ABG pH ABG pCO2 ABG HCO3 ABG Total CO2 ABG O2 Saturation Creatinine Glucose - Diagnostic Test Radiology reviewed: Image reviewed, Reports reviewed - EKG Interpretation by Me EKG shows normal: Sinus rhythm Rate: Tachycardia - 119 P Waves: LAE When compared to previous EKG there are: Changes noted Additional EKG results interpreted by me: 11/25/17 01:[address] and T wave changes. No STEMI. - Transfer of Care Notes: 11/25/17 03:18 Status post fall. Right hip pain. Shortness of breath. Critical Care Note - Critical Care Note Total time excluding time spent on procedures (mins): 35 Discharge - Discharge Clinical Impression: Shortness of breath at rest Fracture of femoral neck, right, closed Qualifiers: Encounter type: initial encounter Qualified Code(s): S72.001A - Fracture of unspecified part of neck of right femur, initial encounter for closed fracture Fall Qualifiers: Encounter type: initial encounter Qualified Code(s): W19.XXXA - Unspecified fall, initial encounter Acute exacerbation of CHF (congestive heart failure) Qualifiers: Heart failure type: unspecified Qualified Code(s): I50.9 - Heart failure, unspecified Bilateral pneumonia Qualifiers: Pneumonia type: due to unspecified organism Lung location: unspecified part of lung Qualified Code(s): J18.9 - Pneumonia, unspecified organism Condition: Fair Disposition: ADMITTED INPATIENT Admitting Provider: [facility] Unit Admitted: [facility]
[2017-11-24] MEDS ORDERED: LEVALBUTEROL HCL NEB 1.25 MG/3 ML AMPUL NEB ONE (20:09)
[2017-11-24] MEDS ORDERED: METHYLPREDNISOLONE INJ 125 MG/2 ML SDV IV ONE (20:09)
[2017-11-24] MEDS ORDERED: ONDANSETRON HCL INJ/PF 4 MG/2 ML SDV IV ONE (20:37)
[2017-11-24] MEDS ORDERED: MORPHINE SULFATE 10 MG/ML INJ IV ONE (20:37)
--- NOTE | 2017-11-24 21:20 | RADIOLOGY REPORT (SQ) ---
EXAM DESCRIPTION: FOOT RIGHT COMPLETE COMPLETED DATE/TIME: 11/24/2017 8:54 pm REASON FOR STUDY: pain COMPARISON: 06/23/2010 NUMBER OF VIEWS: Three views. TECHNIQUE: AP, lateral and oblique radiographic images acquired of the right foot. LIMITATIONS: None. FINDINGS: MINERALIZATION: Normal. BONES: There is marked flattening of the talus, unchanged. JOINTS: No effusions. SOFT TISSUES: Foreign bodies in the soft tissues are unchanged. OTHER: No other significant finding. IMPRESSION: No acute findings. There are changes in the talus in there are foreign bodies that are unchanged from the prior study. TECHNICAL DOCUMENTATION: JOB ID: [id number] [employer]- All Rights Reserved Reading location - IP/workstation name: [email or web address]
[2017-11-24 21:30] LABS: ABSOLUTE EOSINOPHILS # (AUTO) 0.1 10^3/uL (0.0-0.6); ABSOLUTE LYMPHOCYTES (AUTO) 2.1 10^3/uL (0.5-4.7); ABSOLUTE MONOCYTES (AUTO) 1.1 10^3/uL (0.1-1.4); BASOPHILS % (AUTO) 0.1 % (0-2); EOSINOPHILS % (AUTO) 0.3 % (0-6); HEMATOCRIT 42.5 % (36.0-47.0); LYMPHOCYTES % (AUTO) 12.1 % (13-45); MEAN CORPUSCULAR HEMOGLOBIN 28.9 pg (27.0-33.4); MEAN CORPUSCULAR HGB CONC 32.8 g/dL (32.0-36.0); MEAN CORPUSCULAR VOLUME 88 fl (80-97); MONOCYTES % (AUTO) 6.6 % (3-13); PLATELET COUNT 196 10^3/uL (150-450); RED BLOOD COUNT 4.83 10^6/uL (3.72-5.28); RED CELL DISTRIBUTION WIDTH 14.2 % (11.5-14.0); SEGMENTED NEUTROPHILS % (AUTO) 80.9 % (42-78); TOTAL CELLS COUNTED % (AUTO) 100 %; WHITE BLOOD COUNT 17.3 10^3/uL (4.0-10.5)
--- NOTE | 2017-11-24 21:30 | RADIOLOGY REPORT (SQ) ---
EXAM DESCRIPTION: KNEE RIGHT 3 VIEWS COMPLETED DATE/TIME: 11/24/2017 8:54 pm REASON FOR STUDY: pain COMPARISON: None. NUMBER OF VIEWS: Three views. TECHNIQUE: AP, lateral, and sunrise patella radiographic images acquired of the right knee. LIMITATIONS: None. FINDINGS: MINERALIZATION: Osteopenia. BONES: No acute fracture or dislocation. No worrisome bone lesions. JOINT: No effusion. SOFT TISSUES: Prepatellar soft tissue swelling. OTHER: No other significant finding. IMPRESSION: Prepatellar soft tissue swelling with no acute osseous abnormality. TECHNICAL DOCUMENTATION: JOB ID: [id number] [employer]- All Rights Reserved Reading location - IP/workstation name: [email or web address]
--- NOTE | 2017-11-24 21:30 | RADIOLOGY REPORT (SQ) ---
EXAM DESCRIPTION: CHEST SINGLE VIEW COMPLETED DATE/TIME: 11/24/2017 8:54 pm REASON FOR STUDY: SOB COMPARISON: 06/15/2016 EXAM PARAMETERS: NUMBER OF VIEWS: One view. TECHNIQUE: Single frontal radiographic view of the chest acquired. RADIATION DOSE: NA LIMITATIONS: None. FINDINGS: LUNGS AND PLEURA: Pulmonary edema. MEDIASTINUM AND HILAR STRUCTURES: No masses. Contour normal. HEART AND VASCULAR STRUCTURES: Cardiomegaly. BONES: A apple is present in the spine. HARDWARE: None in the chest. OTHER: No other significant finding. IMPRESSION: CHF. TECHNICAL DOCUMENTATION: JOB ID: [id number] [employer]- All Rights Reserved Reading location - IP/workstation name: [email or web address]
--- NOTE | 2017-11-24 21:31 | RADIOLOGY REPORT (SQ) ---
EXAM DESCRIPTION: HIP RIGHT AP/LATERAL COMPLETED DATE/TIME: 11/24/2017 8:54 pm REASON FOR STUDY: pain COMPARISON: None. NUMBER OF VIEWS: Two views. TECHNIQUE: AP pelvis and additional frog-leg view of the right hip. LIMITATIONS: None. FINDINGS: MINERALIZATION: Normal. RIGHT HIP: Impacted subcapital fracture of the femoral neck. LEFT HIP: No fracture or dislocation. No worrisome bone lesions. PUBIS AND ISCHIUM: No fracture. PELVIS: No fracture. SACRUM: No fracture or dislocation. No worrisome bone lesions. LOWER LUMBAR SPINE: No fracture or dislocation. No worrisome bone lesions. No significant disc disea se. SOFT TISSUES: No findings. OTHER: No other significant finding. IMPRESSION: Impacted subcapital fracture of the femoral neck. TECHNICAL DOCUMENTATION: JOB ID: [id number] [employer]- All Rights Reserved Reading location - IP/workstation name: [email or web address]
[2017-11-24 21:34] LABS: APPEARANCE,URINE CLEAR; BILIRUBIN,URINE NEGATIVE (NEGATIVE); COLOR,URINE YELLOW; GLUCOSE, URINE NEGATIVE (NEGATIVE); KETONES,URINE NEGATIVE (NEGATIVE); LEUKOCYTE ESTERASE,URINE NEGATIVE (NEGATIVE); NITRITE,URINE NEGATIVE (NEGATIVE); PROTEIN,URINE NEGATIVE (NEGATIVE); URINE SPECIFIC GRAVITY 1.021; UROBILINOGEN,URINE NEGATIVE mg/dL (<2.0)
[2017-11-24 22:02] LABS: ALANINE AMINOTRANSFERASE 31 U/L (9-52); ALBUMIN 4.3 g/dL (3.5-5.0); ALKALINE PHOSPHATASE 84 U/L (38-126); ANION GAP 12 (5-19); ASPARTATE AMINO TRANSFERASE 23 U/L (14-36); BILIRUBIN,DIRECT 0.2 mg/dL (0.0-0.4); BILIRUBIN,TOTAL 0.6 mg/dL (0.2-1.3); BLOOD UREA NITROGEN 16 mg/dL (7-20); CALCIUM 9.1 mg/dL (8.4-10.2); CARBON DIOXIDE 29 mmol/L (22-30); CHLORIDE 102 mmol/L (98-107); CREATINE KINASE 42 U/L (30-135); GLUCOSE 130 mg/dL (75-110); SODIUM 143.3 mmol/L (137-145); TOTAL PROTEIN 7.4 g/dL (6.3-8.2)
[2017-11-24 22:12] LABS: CREATINE KINASE MB 0.51 ng/mL (<4.55); NT PRO BNP 170 pg/mL (5-900); TROPONIN I < 0.012 ng/mL
--- NOTE | 2017-11-24 22:15 | EKG REPORT ---
SEVERITY:- ABNORMAL ECG - SINUS TACHYCARDIA MULTIPLE VENTRICULAR PREMATURE COMPLEXES PROBABLE LEFT ATRIAL ABNORMALITY : Confirmed by: Malina Dobbins 24-Nov-2017 22:14:42
[2017-11-24] MEDS ORDERED: FUROSEMIDE INJ/PF 40 MG/4 ML SDV IV ONE (22:26)
[2017-11-24 22:44] LABS: ARTERIAL BLOOD H2CO3 2.79 mmol/L (1.05-1.35); ARTERIAL BLOOD HCO3 30.7 mmol/L (20-26); ARTERIAL BLOOD O2 SATURATION 93.4 % (94-98); ARTERIAL BLOOD PO2 89.6 mmHg (80-100); ARTERIAL BLOOD TOTAL CO2 33.6 mmol/L (21-25)
[2017-11-24 22:58] LABS: ARTERIAL BLOOD FIO2 100%
[2017-11-24 23:00] LABS: ARTERIAL BLOOD PCO2 92.6 mmHg (35-45); ARTERIAL BLOOD PH 7.14 (7.35-7.45)
[2017-11-24 23:08] LABS: PARTIAL THROMBOPLASTIN TIME 26.9 SEC (23.5-35.8); PROTHROMBIN TIME 13.7 SEC (11.4-15.4)
[2017-11-25] MEDS ORDERED: ACETAMINOPHEN 325 MG TABLET PO PRN (00:07)
[2017-11-25] MEDS ORDERED: ONDANSETRON HCL INJ/PF 4 MG/2 ML SDV IV PRN ×2 (00:07→10:30)
--- NOTE | 2017-11-25 02:20 | RADIOLOGY REPORT (SQ) ---
EXAM DESCRIPTION: CT CHEST ANGIOGRAPHY WITHOUT THEN WITH IV CONTRAST COMPLETED DATE/TME: 11/25/2017 00:45 EXAM DESCRIPTION: CTA of the chest per PE protocol with contrast. CLINICAL HISTORY: Elevated D-Dimer(>20) CREAT: 0.44 COMPARISON: 06/09/2016 TECHNIQUE: CTA of the chest obtained following the uncomplicated intravenous administration of 100 mL Omnipaque 350. 3-D/MIP reformatted images of the chest available for evaluation. DLP: 909.53 mGycm FINDINGS: Chest: Pulmonary arteries: Contrast bolus is adequate.No filling defects identified in the pulmonary arteries to suggest pulmonary embolus. Enlarged pulmonary arteries can be seen with pulmonary arterial hypertension. Thyroid:No abnormalities of the visualized thyroid. Great Vessels:Great vessels have normal anatomic configuration. Thoracic Aorta: Atherosclerotic calcification of the thoracic aorta. Heart:No cardiomegaly, significant pericardial effusion, or coronary artery atherosclerosis Lymph Nodes:No enlarged mediastinal lymph nodes identified. Esophagus:No abnormalities of the esophagus identified. Other:No additional findings. Lungs: Diffuse patchy and confluent predominantly dependent bilateral lateral airspace opacities. These are more prominent than on the comparison study. Scattered groundglass opacities in the upper lobes. Pleura: Small left pleural effusion. No pneumothorax. Trachea/Airways: No acute abnormalities of the trachea. Bones: Severe levorotoscoliosis of the thoracic spine with Howe rods place. Severe degenerative change of the spine. Upper Abdomen:Limited images of the upper abdomen demonstrate no definite abnormalities of visualized portions of the liver, gallbladder, pancreas, spleen, adrenal glands, or kidneys. IMPRESSION: 1. Diffuse patchy and confluent airspace opacities throughout the lungs which are more prominent than on the comparison study. These findings are compatible with bilateral pneumonia. These findings could be seen with aspiration giving dependent location. 2. Small left pleural effusion. 3. No pulmonary embolus. This exam was performed according to our departmental dose-optimization program, which includes automated exposure control, adjustment of the mA and/or kV according to patient size and/or use of iterative reconstruction technique.
[2017-11-25] MEDS: LEVALBUTEROL HCL NEB 1.25 MG/3 ML AMPUL NEB SCH ×5 (04:25→20:25)
[2017-11-25] MEDS: METHYLPREDNISOLONE INJ 40 MG/1 ML SDV IV SCH ×3 (05:28→22:00)
[2017-11-25] MEDS: FUROSEMIDE INJ/PF 20 MG/2 ML SDV IV SCH ×3 (05:29→17:29)
[2017-11-25] MEDS ORDERED: METHYLPREDNISOLONE INJ 40 MG/1 ML SDV IV SCH (06:00)
--- NOTE | 2017-11-25 06:44 | PDOC CONSULTATION ---
Consultation Consult Date: 11/25/17 Consult reason:: Right hip pain History of Present Illness Admission Date/PCP: 11/25/17 00:19 KIMI CANELA MD History of Present Illness: MITCH ORELLANA is a 67 year old female Patient is a 67-year-old white female who is admitted through the emergency room after falling off a stool and complaining of right hip pain. She was evaluated in the emergency room and found to have a valgus impacted right femoral neck fracture that was presumed acute and a result of falling off the chair. In the process of evaluation in the emergency room and subsequent by the hospitalist service the patient has other considerable cardiopulmonary issues. Orthopedics consult for management of the right hip fracture. Past Medical History Cardiac Medical History: Reports: Hypertension Denies: Coronary Artery Disease, Myocardial Infarction Pulmonary Medical History: Reports: Chronic Obstructive Pulmonary Disease (COPD) , Pneumonia - WHEN I WAS 7 YRS OLD, Respiratory Failure Denies: Asthma, Bronchitis Neurological Medical History: Denies: Seizures GI Medical History: Denies: Hepatitis, Hiatal Hernia Musculoskeltal Medical History: Reports: Arthritis Psychiatric Medical History: Reports: Depression Past Surgical History Past Surgical History: Reports: Orthopedic Surgery Denies: Hysterectomy, Mastectomy, Pacemaker Social History Information Source: Patient, [facility] Smoking Status: Unknown if Ever Smoked Frequency of Alcohol Use: None Hx Recreational Drug Use: No Hx Prescription Drug Abuse: No - Advance Directive Resuscitation Status: Do Not Resuscitate Family History Family History: Reviewed & Not Pertinent Parental Family History Reviewed: No Children Family History Reviewed: No Sibling(s) Family History Reviewed.: No Medication/Allergy Home Medications: Aspirin [Ecotrin 81 mg EC Tablet] 81 mg PO DAILY 06/09/16 Ipratropium/Albuterol Sulfate [Duoneb 3 ml Ampul] 3 ml NEB RTQ6 06/09/16 Losartan/Hydrochlorothiazide [Hyzaar 50-12.5 Tablet] 1 each PO DAILY 06/09/16 Metoprolol Succinate [Toprol XL 100 mg Tablet] 100 mg PO DAILY 06/09/16 Allergies/Adverse Reactions: No Known Allergies Allergy (Verified 10/25/14 09:26) Review of Systems ROS unobtainable: Due to mental status All systems: as per H Physical Exam Vital Signs: Temp Pulse Resp BP Pulse Ox 36.6 C 100 15 110/53 L 94 11/25/17 03:12 08/23/18 04:25 11/25/17 04:25 11/25/17 03:12 11/25/17 04:25 Intake & Output 11/23/17 11/24/17 11/25/17 06:59 06:59 06:59 Weight 63.4 kg Physical Exam: The patient is a frail appearing middle-aged white female lying in hospital bed. She is alert and in and interactive. She is either very poor historian or she is confused. General appearance: PRESENT: no acute distress Head exam: PRESENT: normocephalic Respiratory exam: PRESENT: unlabored, other - On nasal prong oxygen Cardiovascular exam: PRESENT: tachycardia Pulses: PRESENT: +1 pedal pulses bilateral Vascular exam: PRESENT: normal capillary refill GI/Abdominal exam: PRESENT: soft Rectal exam: PRESENT: deferred Extremities exam: PRESENT: other - Right lower extremity with considerable atrophy compared to the left. 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 Patient is not able to confirm that she has had polio in the past but feels that she had something like it. Passive range of motion of the right hip is without significant discomfort. Patient states that if she attempts to weight-bear on it that is when she has the pain in the right lower extremity. Leg lengths are equal. There is brisk capillary refill. Neurological exam: PRESENT: awake Psychiatric exam: PRESENT: unusual affect Skin exam: PRESENT: dry, intact, warm. ABSENT: cyanosis, rash Results Impressions: Chest X-Ray 11/24/17 20:09 IMPRESSION: CHF. Hip/Pelvis X-Ray 11/24/17 20:10 IMPRESSION: Impacted subcapital fracture of the femoral neck. Foot X-Ray 11/24/17 20:11 IMPRESSION: No acute findings. There are changes in the talus in there are foreign bodies that are unchanged from the prior study. Knee X-Ray 11/24/17 20:11 IMPRESSION: Prepatellar soft tissue swelling with no acute osseous abnormality. Chest/Abdomen CTA 11/25/17 00:45 IMPRESSION: 1. Diffuse patchy and confluent airspace opacities throughout the lungs which are more prominent than on the comparison study. These findings are compatible with bilateral pneumonia. These findings could be seen with aspiration giving dependent location. 2. Small left pleural effusion. 3. No pulmonary embolus. This exam was performed according to our departmental dose-optimization program, which includes automated exposure control, adjustment of the mA and/or kV according to patient size and/or use of iterative reconstruction technique. Status: Imported from PACS Assessment & Plan - Diagnosis (1) Fracture of femoral neck, right, closed Qualifiers: Encounter type: initial encounter Qualified Code(s): S72.001A - Fracture of unspecified part of neck of right femur, initial encounter for closed fracture Is this a current diagnosis for this admission?: Yes Plan: 67-year-old white female with multiple ongoing medical comorbidities and now a newly diagnosed right femoral neck fracture. In light of the fact that I can move the leg passively without significant discomfort makes me wonder how acute this is. In either case I think it would be prudent to fix the fracture with percutaneous screws. This is a procedure that can be done under local anesthetic with slight sedation, minimal blood loss, and with a duration of less than 15 minutes. However at this point I do not think the patient's medical condition is appropriate to consider surgical intervention. As her medical condition improves during her hospitalization we can readdress when this may be feasible. - Time Time Spent: 50 to 70 Minutes Anticipated discharge: Other Within: Other
[2017-11-25] MEDS ORDERED: DOCUSATE SODIUM 100 MG CAPSULE PO SCH (10:00)
[2017-11-25] MEDS: FAMOTIDINE INJ/PF 20 MG/2 ML SDV IV SCH ×2 (10:48→22:29)
[2017-11-25] MEDS: ENOXAPARIN SODIUM INJ 40 MG/0.4 ML DISP.SYRIN SUBCUT SCH (10:48)
[2017-11-25] MEDS: CEFEPIME 2 GM/D5W RTU 2 GM/50 ML RTUPB IV SCH ×2 (10:49→22:29)
[2017-11-25 11:28] LABS: ARTERIAL BLOOD BASE EXCESS -2.2 mmol/L; ARTERIAL BLOOD H2CO3 1.62 mmol/L (1.05-1.35); ARTERIAL BLOOD HCO3 25.1 mmol/L (20-26); ARTERIAL BLOOD O2 SATURATION 90.4 % (94-98); ARTERIAL BLOOD PCO2 53.7 mmHg (35-45); ARTERIAL BLOOD PH 7.29 (7.35-7.45); ARTERIAL BLOOD PO2 65.7 mmHg (80-100); ARTERIAL BLOOD TOTAL CO2 26.8 mmol/L (21-25)
[2017-11-25 11:29] LABS: ARTERIAL BLOOD FIO2 6L
[2017-11-25] MEDS ORDERED: LEVOFLOXACIN 750 MG/D5W RTU 750 MG/150 ML RTUPB IV ONE (11:51)
[2017-11-25] MEDS: LEVOFLOXACIN 750 MG/D5W RTU 750 MG/150 ML RTUPB IV SCH (11:58)
[2017-11-25] MEDS ORDERED: (PENDING PHARMACY ID) (Losartan/Hydrochlorothiazide [Hyzaar 50-12.5 Tablet] 1 TAB) PO SCH (15:30)
[2017-11-25] MEDS: DOCUSATE SODIUM 100 MG CAPSULE PO SCH (15:45)
[2017-11-25] MEDS: HYDROCHLOROTHIAZIDE 12.5 MG TABLET PO SCH (15:46)
[2017-11-25] MEDS: ASPIRIN 81 MG TABLET, ENT COATED PO SCH (15:46)
[2017-11-25] MEDS: LOSARTAN POTASSIUM 50 MG TABLET PO SCH (15:46)
[2017-11-25] MEDS: ESCITALOPRAM OXALATE 10 MG TABLET PO SCH (15:47)
[2017-11-25] MEDS: METOPROLOL SUCCINATE 50 MG TAB.SR.24H PO SCH (15:48)
[2017-11-25] MEDS: OXYCODONE-ACETAMINOPHEN 5-325 MG TABLET PO PRN (15:49)
--- NOTE | 2017-11-25 17:00 | PDOC H&P ---
History of Present Illness Admission Date/PCP: 11/25/17 00:19 KIMI CANELA MD Patient complains of: FallAnd shortness of the breath History of Present Illness: MITCH ORELLANA is a 67 year old female This is a 66-year-old female the patient with Dr. Canela with end-stage COPD currently on hospice currently a DNR fall from table And complaining of right- sided hip pain and patient have a fracture in the femur Patient also have oxygen saturations 60-70 persons patients was put on a nonrebreather Very end-stage COPD requiring a BiPAP patient is pretty much hospice care but because of the fracture decided to admit in the hospital Underwent for the CT angiogram which consistence with the pneumonia no sign of any pulmonary embolism Patient has some mild CHF was given some IV Lasix Patient's currently denied any chest pain but still have on going shortness of the breath Patient seen by the Dr. Rodriguez suggestive the stable and he will do the under local anesthesia for surgical infectiousness of the fracture We consulted the pulmonary and cardiology for further evaluations Past Medical History Cardiac Medical History: Reports: Hypertension Denies: Coronary Artery Disease, Myocardial Infarction Pulmonary Medical History: Reports: Chronic Obstructive Pulmonary Disease (COPD) , Pneumonia - WHEN I WAS 7 YRS OLD, Respiratory Failure Denies: Asthma, Bronchitis Neurological Medical History: Denies: Seizures GI Medical History: Denies: Hepatitis, Hiatal Hernia Musculoskeltal Medical History: Reports: Arthritis Psychiatric Medical History: Reports: Depression Past Surgical History Past Surgical History: Reports: Orthopedic Surgery Denies: Hysterectomy, Mastectomy, Pacemaker Social History Smoking Status: Unknown if Ever Smoked Frequency of Alcohol Use: None Hx Recreational Drug Use: No Hx Prescription Drug Abuse: No - Advance Directive Resuscitation Status: Do Not Resuscitate Family History Family History: Reviewed & Not Pertinent Parental Family History Reviewed: Yes Children Family History Reviewed: Yes Sibling(s) Family History Reviewed.: Yes Medication/Allergy Home Medications: Aspirin [Aspirin EC] 81 mg PO DAILY 11/25/17 Docusate Sodium [Colace 100 mg Capsule] 100 mg PO DAILY 11/25/17 Escitalopram Oxalate [Lexapro] 5 mg PO DAILY 11/25/17 Losartan/Hydrochlorothiazide [Hyzaar 50-12.5 Tablet] 1 tab PO DAILY 11/25/17 Metoprolol Succinate [Toprol XL 100 mg Tablet] 100 mg PO DAILY 11/25/17 Allergies/Adverse Reactions: No Known Allergies Allergy (Verified 10/25/14 09:26) Review of Systems Constitutional: PRESENT: fatigue, weakness. ABSENT: chills, fever(s), headache( s), weight gain, weight loss Eyes: ABSENT: visual disturbances Ears: ABSENT: hearing changes Cardiovascular: ABSENT: chest pain, edema, orthropnea, palpitations Respiratory: ABSENT: cough, hemoptysis Gastrointestinal: ABSENT: abdominal pain, constipation, diarrhea, hematemesis, hematochezia, nausea, vomiting Genitourinary: ABSENT: dysuria, hematuria Musculoskeletal: ABSENT: joint swelling Integumentary: ABSENT: rash, wounds Neurological: ABSENT: abnormal gait, abnormal speech, confusion, dizziness, focal weakness, syncope Psychiatric: ABSENT: anxiety, depression, homidical ideation, suicidal ideation Endocrine: ABSENT: cold intolerance, heat intolerance, menstrual abnormalities, polydipsia, polyuria Hematologic/Lymphatic: ABSENT: easy bleeding, easy bruising, lymphadenopathy Physical Exam Vital Signs: Temp Pulse Resp BP Pulse Ox 99.7 F 115 H 20 130/64 H 93 11/25/17 12:00 11/25/17 12:20 11/25/17 12:20 11/25/17 12:00 11/25/17 12:20 Intake & Output 11/24/17 11/25/17 11/26/17 06:59 06:59 06:59 Intake Total 168 Output Total 1200 300 Balance -1200 -132 Weight 63.4 kg General appearance: PRESENT: mild distress, thin Head exam: PRESENT: atraumatic, normocephalic Eye exam: PRESENT: conjunctiva pink, EOMI, PERRLA. ABSENT: scleral icterus Ear exam: PRESENT: normal external ear exam Mouth exam: PRESENT: moist, tongue midline Neck exam: PRESENT: full ROM. ABSENT: carotid bruit, JVD, lymphadenopathy, thyromegaly Respiratory exam: PRESENT: decreased breath sounds Cardiovascular exam: PRESENT: RRR. ABSENT: diastolic murmur, rubs, systolic murmur Pulses: PRESENT: normal dorsalis pedis pul, +2 pedal pulses bilateral Vascular exam: PRESENT: normal capillary refill GI/Abdominal exam: PRESENT: normal bowel sounds, soft. ABSENT: distended, guarding, mass, organolmegaly, rebound, tenderness Rectal exam: PRESENT: deferred Extremities exam: ABSENT: pedal edema Additional comments: Postpolio weakness Neurological exam: PRESENT: alert, awake, oriented to person, oriented to place , oriented to time, oriented to situation. ABSENT: motor sensory deficit Psychiatric exam: PRESENT: appropriate affect, normal mood. ABSENT: homicidal ideation, suicidal ideation Skin exam: PRESENT: dry, intact, warm. ABSENT: cyanosis, rash Results Laboratory Results: 11/25/17 11:05 Carbonic Acid 1.62 H HCO3/H2CO3 Ratio 15:1 ABG pH 7.29 L ABG pCO2 53.7 H ABG pO2 65.7 L ABG HCO3 25.1 ABG O2 Saturation 90.4 L ABG Base Excess -2.2 FiO2 6L Impressions: Chest X-Ray 11/24/17 20:09 IMPRESSION: CHF. Hip/Pelvis X-Ray 11/24/17 20:10 IMPRESSION: Impacted subcapital fracture of the femoral neck. Foot X-Ray 11/24/17 20:11 IMPRESSION: No acute findings. There are changes in the talus in there are foreign bodies that are unchanged from the prior study. Knee X-Ray 11/24/17 20:11 IMPRESSION: Prepatellar soft tissue swelling with no acute osseous abnormality. Chest/Abdomen CTA 11/25/17 00:45 IMPRESSION: 1. Diffuse patchy and confluent airspace opacities throughout the lungs which are more prominent than on the comparison study. These findings are compatible with bilateral pneumonia. These findings could be seen with aspiration giving dependent location. 2. Small left pleural effusion. 3. No pulmonary embolus. This exam was performed according to our departmental dose-optimization program, which includes automated exposure control, adjustment of the mA and/or kV according to patient size and/or use of iterative reconstruction technique. Assessment & Plan - Diagnosis (1) Fracture of femoral neck, right, closed Qualifiers: Encounter type: initial encounter Qualified Code(s): S72.001A - Fracture of unspecified part of neck of right femur, initial encounter for closed fracture Is this a current diagnosis for this admission?: Yes Plan: Follow-up with the Ortho (2) Fall Qualifiers: Encounter type: initial encounter Qualified Code(s): W19.XXXA - Unspecified fall, initial encounter Is this a current diagnosis for this admission?: Yes (3) Acute exacerbation of CHF (congestive heart failure) Qualifiers: Heart failure type: unspecified Qualified Code(s): I50.9 - Heart failure, unspecified Is this a current diagnosis for this admission?: Yes Plan: Consult to cardiology before any procedure get the echocardiogram continues to Lasix (4) Bilateral pneumonia Qualifiers: Pneumonia type: due to unspecified organism Lung location: unspecified part of lung Qualified Code(s): J18.9 - Pneumonia, unspecified organism Is this a current diagnosis for this admission?: Yes Plan: Possible aspirations pneumonia will continues to IV cefepimeConsult the pulmonary (5) Acute hypercapnic respiratory failure Is this a current diagnosis for this admission?: Yes (6) Chronic obstructive pulmonary disease Qualifiers: COPD type: unspecified COPD Qualified Code(s): J44.9 - Chronic obstructive pulmonary disease, unspecified Is this a current diagnosis for this admission?: Yes Plan: Continues to current medications current nebulizer (7) Post-polio syndrome Is this a current diagnosis for this admission?: Yes - Time Time Spent: 50 to 70 Minutes Medications reviewed and adjusted accordingly: Yes Anticipated discharge: Other Within: Other - Inpatient Certification Medical Necessity: Need for IV Antibiotics Post Hospital Care: D/C [employer] Documentation - Plan Summary Plan Summary: Patient of multiple comorbidity currently under hospice care will continues to monitor the patient currently a DNR DNI
[2017-11-25] MEDS ORDERED: METHYLPREDNISOLONE INJ 40 MG/1 ML SDV IV ONE (22:45)
[2017-11-25] MEDS ORDERED: FLUTICASONE/SALMETEROL DISKUS 250-50 MCG/DOSE IH ONE ×2 (22:45→23:24)
[2017-11-26] MEDS: LEVALBUTEROL HCL NEB 1.25 MG/3 ML AMPUL NEB SCH ×7 (00:08→23:42)
[2017-11-26] MEDS: FUROSEMIDE INJ/PF 20 MG/2 ML SDV IV SCH ×2 (00:49→05:32)
[2017-11-26] MEDS: METHYLPREDNISOLONE INJ 40 MG/1 ML SDV IV SCH ×2 (05:37→14:06)
[2017-11-26 05:44] LABS: HEMATOCRIT 35.2 % (36.0-47.0); MEAN CORPUSCULAR HEMOGLOBIN 29.1 pg (27.0-33.4); MEAN CORPUSCULAR HGB CONC 33.5 g/dL (32.0-36.0); MEAN CORPUSCULAR VOLUME 87 fl (80-97); PLATELET COUNT 147 10^3/uL (150-450); RED BLOOD COUNT 4.05 10^6/uL (3.72-5.28); RED CELL DISTRIBUTION WIDTH 14.2 % (11.5-14.0); WHITE BLOOD COUNT 18.4 10^3/uL (4.0-10.5)
[2017-11-26 05:51] LABS: ALANINE AMINOTRANSFERASE 23 U/L (9-52); ALBUMIN 3.6 g/dL (3.5-5.0); ALKALINE PHOSPHATASE 54 U/L (38-126); ANION GAP 11 (5-19); ASPARTATE AMINO TRANSFERASE 17 U/L (14-36); BILIRUBIN,DIRECT 0.3 mg/dL (0.0-0.4); BILIRUBIN,TOTAL 0.3 mg/dL (0.2-1.3); BLOOD UREA NITROGEN 29 mg/dL (7-20); CALCIUM 8.8 mg/dL (8.4-10.2); CARBON DIOXIDE 33 mmol/L (22-30); CHLORIDE 95 mmol/L (98-107); GLUCOSE 144 mg/dL (75-110); POTASSIUM 4.2 mmol/L (3.6-5.0); SODIUM 139.4 mmol/L (137-145); TOTAL PROTEIN 6.2 g/dL (6.3-8.2)
[2017-11-26 06:17] LABS: HEMOGLOBIN 11.8 g/dL (12.0-15.5)
[2017-11-26 06:30] LABS: ABSOLUTE LYMPHOCYTES# (MANUAL) 0.2 10^3/uL (0.5-4.7); ABSOLUTE MONOCYTES # (MANUAL) 1.3 10^3/uL (0.1-1.4); ABSOLUTE NEUTROPHILS# (MANUAL) 16.9 10^3/uL (1.7-8.2); BASOPHILS % (MANUAL) 0 % (0-2); EOSINOPHILS % (MANUAL) 0 % (0-6); LYMPHOCYTES % (MANUAL) 1 % (13-45); MONOCYTES % (MANUAL) 7 % (3-13); SEGMENTED NEUTROPHILS % (MAN) 92 % (42-78); TOTAL CELLS COUNTED 100
[2017-11-26 06:31] LABS: PLATELET COMMENT DECREASED; RBC MORPHOLOGY COMMENT NORMO-CYTIC/CHROMIC
--- NOTE | 2017-11-26 06:47 | PDOC PROGRESS REPORT ---
Subjective Progress Note for:: 11/26/17 Reason For Visit: HIP FX,COPD ACUTE 67-year-old white female with a right valgus impacted femoral neck fracture awaiting preoperative clearance Physical Exam Vital Signs: Temp Pulse Resp BP Pulse Ox 37.1 C 79 20 109/54 L 97 11/26/17 03:05 11/26/17 03:32 11/26/17 03:32 11/26/17 03:05 11/26/17 03:32 Intake & Output 11/24/17 11/25/17 11/26/17 06:59 06:59 06:59 Intake Total 483 Output Total 1200 1700 Balance -1200 -1217 Weight 63.4 kg 63 kg Physical Exam: Unchanged from yesterday Results Laboratory Results: 11/26/17 04:48 11/26/17 04:48 11/25/17 11/26/17 11/26/17 11:05 04:48 04:48 WBC 18.4 H RBC 4.05 Hgb 11.8 L D Hct 35.2 L MCV 87 MCH 29.1 MCHC 33.5 RDW 14.2 H Plt Count 147 L Seg Neutrophils % Not Reportable Lymphocytes % Not Reportable Monocytes % Not Reportable Eosinophils % Not Reportable Basophils % Not Reportable Absolute Neutrophils Not Reportable Absolute Lymphocytes Not Reportable Absolute Monocytes Not Reportable Absolute Eosinophils Not Reportable Absolute Basophils Not Reportable Carbonic Acid 1.62 H HCO3/H2CO3 Ratio 15:1 ABG pH 7.29 L ABG pCO2 53.7 H ABG pO2 65.7 L ABG HCO3 25.1 ABG O2 Saturation 90.4 L ABG Base Excess -2.2 FiO2 6L Sodium 139.4 Potassium 4.2 Chloride 95 L Carbon Dioxide 33 H Anion Gap 11 BUN 29 H Creatinine 0.65 Est GFR ( Amer) > 60 Est GFR (Non-Af Amer) > 60 Glucose 144 H Calcium 8.8 Total Bilirubin 0.3 AST 17 ALT 23 Alkaline Phosphatase 54 Total Protein 6.2 L Albumin 3.6 Impressions: Chest X-Ray 11/24/17 20:09 IMPRESSION: CHF. Hip/Pelvis X-Ray 11/24/17 20:10 IMPRESSION: Impacted subcapital fracture of the femoral neck. Foot X-Ray 11/24/17 20:11 IMPRESSION: No acute findings. There are changes in the talus in there are foreign bodies that are unchanged from the prior study. Knee X-Ray 11/24/17 20:11 IMPRESSION: Prepatellar soft tissue swelling with no acute osseous abnormality. Chest/Abdomen CTA 11/25/17 00:45 IMPRESSION: 1. Diffuse patchy and confluent airspace opacities throughout the lungs which are more prominent than on the comparison study. These findings are compatible with bilateral pneumonia. These findings could be seen with aspiration giving dependent location. 2. Small left pleural effusion. 3. No pulmonary embolus. This exam was performed according to our departmental dose-optimization program, which includes automated exposure control, adjustment of the mA and/or kV according to patient size and/or use of iterative reconstruction technique. Status: Imported from PACS Assessment & Plan - Diagnosis (1) Fracture of femoral neck, right, closed Qualifiers: Encounter type: initial encounter Qualified Code(s): S72.001A - Fracture of unspecified part of neck of right femur, initial encounter for closed fracture Is this a current diagnosis for this admission?: Yes Plan: Awaiting preoperative clearance prior to percutaneous fixation of a right valgus impacted femoral neck fracture - Time Time Spent with patient: 15-24 minutes Anticipated discharge: Other Within: Other
--- NOTE | 2017-11-26 10:12 | PDOC PROGRESS REPORT ---
Subjective Progress Note for:: 11/26/17 Subjective:: Patient is currently doing much better She has denied any chest pain denied any shortness of the breath Seen by the pulmonary Reason For Visit: HIP FX,COPD ACUTE Physical Exam Vital Signs: Temp Pulse Resp BP Pulse Ox 98.4 F 85 16 111/52 L 95 11/26/17 07:34 11/26/17 08:50 11/26/17 08:50 11/26/17 07:34 11/26/17 08:50 Intake & Output 11/25/17 11/26/17 11/27/17 06:59 06:59 06:59 Intake Total 483 Output Total 1200 1700 Balance -1200 -1217 Weight 63.4 kg 63 kg General appearance: PRESENT: no acute distress, well-developed, well-nourished Head exam: PRESENT: atraumatic, normocephalic Eye exam: PRESENT: conjunctiva pink, EOMI, PERRLA. ABSENT: scleral icterus Ear exam: PRESENT: normal external ear exam Mouth exam: PRESENT: moist, tongue midline Neck exam: PRESENT: full ROM. ABSENT: carotid bruit, JVD, lymphadenopathy, thyromegaly Respiratory exam: PRESENT: clear to auscultation ryley Cardiovascular exam: PRESENT: RRR. ABSENT: diastolic murmur, rubs, systolic murmur Pulses: PRESENT: normal dorsalis pedis pul, +2 pedal pulses bilateral Vascular exam: PRESENT: normal capillary refill GI/Abdominal exam: PRESENT: normal bowel sounds, soft. ABSENT: distended, guarding, mass, organolmegaly, rebound, tenderness Rectal exam: PRESENT: deferred Extremities exam: ABSENT: pedal edema Neurological exam: PRESENT: alert, awake, oriented to person, oriented to place , oriented to time, oriented to situation. ABSENT: motor sensory deficit Psychiatric exam: PRESENT: appropriate affect, normal mood. ABSENT: homicidal ideation, suicidal ideation Skin exam: PRESENT: dry, intact, warm. ABSENT: cyanosis, rash Results Laboratory Results: 11/26/17 04:48 11/26/17 04:48 11/25/17 11/26/17 11/26/17 11:05 04:48 04:48 WBC 18.4 H RBC 4.05 Hgb 11.8 L D Hct 35.2 L MCV 87 MCH 29.1 MCHC 33.5 RDW 14.2 H Plt Count 147 L Seg Neutrophils % Not Reportable Lymphocytes % Not Reportable Monocytes % Not Reportable Eosinophils % Not Reportable Basophils % Not Reportable Absolute Neutrophils Not Reportable Absolute Lymphocytes Not Reportable Absolute Monocytes Not Reportable Absolute Eosinophils Not Reportable Absolute Basophils Not Reportable Carbonic Acid 1.62 H HCO3/H2CO3 Ratio 15:1 ABG pH 7.29 L ABG pCO2 53.7 H ABG pO2 65.7 L ABG HCO3 25.1 ABG O2 Saturation 90.4 L ABG Base Excess -2.2 FiO2 6L Sodium 139.4 Potassium 4.2 Chloride 95 L Carbon Dioxide 33 H Anion Gap 11 BUN 29 H Creatinine 0.65 Est GFR ( Amer) > 60 Est GFR (Non-Af Amer) > 60 Glucose 144 H Calcium 8.8 Total Bilirubin 0.3 AST 17 ALT 23 Alkaline Phosphatase 54 Total Protein 6.2 L Albumin 3.6 Impressions: Chest X-Ray 11/24/17 20:09 IMPRESSION: CHF. Hip/Pelvis X-Ray 11/24/17 20:10 IMPRESSION: Impacted subcapital fracture of the femoral neck. Foot X-Ray 11/24/17 20:11 IMPRESSION: No acute findings. There are changes in the talus in there are foreign bodies that are unchanged from the prior study. Knee X-Ray 11/24/17 20:11 IMPRESSION: Prepatellar soft tissue swelling with no acute osseous abnormality. Chest/Abdomen CTA 11/25/17 00:45 IMPRESSION: 1. Diffuse patchy and confluent airspace opacities throughout the lungs which are more prominent than on the comparison study. These findings are compatible with bilateral pneumonia. These findings could be seen with aspiration giving dependent location. 2. Small left pleural effusion. 3. No pulmonary embolus. This exam was performed according to our departmental dose-optimization program, which includes automated exposure control, adjustment of the mA and/or kV according to patient size and/or use of iterative reconstruction technique. Assessment & Plan - Diagnosis (1) Fracture of femoral neck, right, closed Qualifiers: Encounter type: initial encounter Qualified Code(s): S72.001A - Fracture of unspecified part of neck of right femur, initial encounter for closed fracture Is this a current diagnosis for this admission?: Yes Plan: Follow with the surgery (2) Fall Qualifiers: Encounter type: initial encounter Qualified Code(s): W19.XXXA - Unspecified fall, initial encounter Is this a current diagnosis for this admission?: Yes (3) Acute exacerbation of CHF (congestive heart failure) Qualifiers: Heart failure type: unspecified Qualified Code(s): I50.9 - Heart failure, unspecified Is this a current diagnosis for this admission?: Yes Plan: Continues to current medications (4) Bilateral pneumonia Qualifiers: Pneumonia type: due to unspecified organism Lung location: unspecified part of lung Qualified Code(s): J18.9 - Pneumonia, unspecified organism Is this a current diagnosis for this admission?: Yes Plan: Possible aspirations pneumonia will continues to IV cefepimeConsult the pulmonary (5) Acute hypercapnic respiratory failure Is this a current diagnosis for this admission?: Yes (6) Chronic obstructive pulmonary disease Qualifiers: COPD type: unspecified COPD Qualified Code(s): J44.9 - Chronic obstructive pulmonary disease, unspecified Is this a current diagnosis for this admission?: Yes Plan: Continues to current medications current nebulizer (7) Post-polio syndrome Is this a current diagnosis for this admission?: Yes - Time Time Spent with patient: 15-24 minutes Medications reviewed and adjusted accordingly: Yes Within: Other - Inpatient Certification Medical Necessity: Need Close Monitoring Due to Risk of Patient Decompensation, Need for IV Antibiotics Post Hospital Care: D/C [employer] Documentation - Plan Summary Plan Summary: Continues current medications
[2017-11-26] MEDS: FAMOTIDINE INJ/PF 20 MG/2 ML SDV IV SCH ×2 (10:36→23:02)
[2017-11-26] MEDS: ENOXAPARIN SODIUM INJ 40 MG/0.4 ML DISP.SYRIN SUBCUT SCH (10:36)
[2017-11-26] MEDS: TIOTROPIUM BROMIDE DPI 5 CAP/KIT (18 MCG/CAP) IH SCH (10:37)
[2017-11-26] MEDS: FLUTICASONE/SALMETEROL DISKUS 250-50 MCG/DOSE IH SCH ×2 (10:37→23:02)
[2017-11-26] MEDS: CEFEPIME 2 GM/D5W RTU 2 GM/50 ML RTUPB IV SCH ×2 (10:37→22:58)
[2017-11-26] MEDS: ASPIRIN 81 MG TABLET, ENT COATED PO SCH (10:40)
[2017-11-26] MEDS: DOCUSATE SODIUM 100 MG CAPSULE PO SCH (10:41)
[2017-11-26] MEDS: ESCITALOPRAM OXALATE 10 MG TABLET PO SCH (10:41)
[2017-11-26] MEDS: LOSARTAN POTASSIUM 50 MG TABLET PO SCH (10:41)
[2017-11-26] MEDS: METOPROLOL SUCCINATE 50 MG TAB.SR.24H PO SCH (10:41)
[2017-11-26] MEDS: HYDROCHLOROTHIAZIDE 12.5 MG TABLET PO SCH (10:41)
--- NOTE | 2017-11-26 14:41 | CONSULTATION REPORT E ---
Consultation Report NAME: MITCH ORELLANA : 1950 AGE: 67Y DATE: 11/25/2017 ROOM: 315 A TO: ALPA GARCIA M.D. FROM: PREET WORRELL M.D. Requesting Physician HISTORY OF PRESENT ILLNESS: The patient is a 67-year-old female who came in earlier today because of a fall injury. 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 The patient's oxygenation was at 60-70% while on nonrebreather. The patient was previously diagnosed to have end-stage COPD requiring BiPAP therapy. The patient currently is feeling better. The patient denies having history of bronchial asthma, but claims that she uses only albuterol inhaler at home. Denies any hemoptysis, chest pain, or acutely worsening dyspnea. Complained about pain in the right hip. No hemoptysis. PAST MEDICAL HISTORY: Hypertension, history of COPD, history of respiratory failure and has history of respiratory when she was 7 years old. No seizure history. The patient has arthritis and reports depression. SURGICAL HISTORY: Orthopedic surgery. SOCIAL HISTORY: Smoking. Denies any alcohol abuse or illicit drug use. RESUSCITATION STATUS: Do not resuscitate. MEDICATIONS AT HOME: 1. Aspirin. 2. Lexapro. 3. Colace. 4. Losartan/hydrochlorothiazide. 5. Metoprolol. 6. Albuterol nebulizer treatment. ALLERGIES: No known drug allergies REVIEW OF SYSTEMS: CONSTITUTIONAL: No fever or chills. EYES: No eye pain, no blurry vision. EARS, NOSE, AND THROAT: No ear drainage, no nasal discharge. RESPIRATORY: Complained about increasing shortness of breath and coughing, nonproductive. No hemoptysis. No chest pain. CARDIAC: No history of angina, no palpitations. ABDOMEN: No nausea, vomiting, or diarrhea. EXTREMITIES: Complained about slight hip pain after sustaining a fall with femoral fracture. PHYSICAL EXAMINATION: GENERAL: The patient is awake, alert, coherent, oriented x3. VITAL SIGNS: Temperature 99.5 with a T-max of 99.9, heart rate 74, blood pressure 92/52, respirations 20, and saturation is 97% on 6 liters of oxygen. LABORATORY DATA: CBC done today showed a white count of 17,000; hemoglobin is 14; hematocrit is 42.5; platelet count is 196. ABG done this morning at 11 a.m. showed pH 7.29, pCO2 is 53.7, pO2 is 55.7, saturation 90.4, improved from 7.14 on admission. Chemistry; sodium is 143, potassium is 4, chloride is 102, CO2 is 29, BUN 16, creatinine 0.4, glucose 113, calcium is 9.1. SGOT is 23, SGPT 31, alkaline phosphatase 84. Troponin less than 0.012. IMAGING STUDIES: Chest CT done today patchy opacities involving both lower lobes of the lung, upper lobe suspicious for pneumonic process. ASSESSMENT: 1. Pneumonia, bibasal. 2. History of COPD end-stage. 3. History of fracture right femur, however, the patient is able to sit down on bedside chair. PLAN/RECOMMENDATION: 1. We will start patient on Levaquin 750 mg IV piggyback now in addition to cefepime 2 grams IV piggyback q.12 hours ordered earlier today. 2. We will decrease the Solu-Medrol dose to 20 mg IV every 8 hours. 3. Continue the Xopenex nebulizer treatment every 4 hours. 4. We will start the patient on Advair 250/50 diskhaler 1 puff b.i.d. 5. Also patient's Spiriva inhaler 1 capsule to be inhaled daily. 6. We will do a sputum culture if patient is able express any sputum. DICTATING PHYSICIAN: ALPA GARCIA MD,ANNETTE,MPH [id number] PHY#: [id number] [id number] JOB#: [id number] ACCT: [id number] cc:ALPA GARCIA M.D. > MTDD
--- NOTE | 2017-11-26 19:27 | PDOC PROGRESS REPORT ---
Subjective Progress Note for:: 11/26/17 Subjective:: Patient seems to be doing better with gradual improvement. Pt is denying any chest arm or neck discomfort. Patient denying any PND, orthopnea. Patient denied any sustained palpitations, dizziness, syncope, near syncope. Patient denying any fever chills. Patient denying any other significant discomfort. Patient is maintaining sinus rhythm. Review of systems: Rest review of systems negative. Medications: Medications have been reviewed. Reason For Visit: HIP FX,COPD ACUTE Physical Exam Vital Signs: Temp Pulse Resp BP Pulse Ox 99.5 F 91 20 122/53 L 94 11/26/17 15:33 11/26/17 16:00 11/26/17 16:00 11/26/17 15:33 11/26/17 16:00 Intake & Output 11/25/17 11/26/17 11/27/17 06:59 06:59 06:59 Intake Total 483 505 Output Total 1200 1700 1100 Balance -1200 -1217 -595 Weight 63.4 kg 63 kg Exam: GENERAL: well-nourished and in no acute distress. Alert and oriented x3 HEAD: Atraumatic, normocephalic. EYES: Pupils equal round and reactive to light, extraocular movements intact, sclera anicteric, conjunctiva are normal. ENT: TMs normal, nares patent, oropharynx clear without exudates. Moist mucous membranes. No oral ulcerations or bleeding gums noted NECK: supple without lymphadenopathy. Trachea is central. No cervical or axillary lymphadenopathy noted. Carotids are 2+, JVD WNL LUNGS: Respiration seems nonlabored, no significant accessory muscle action noted. Bibasilar fine crackles and few a scattered wheezes rales or rhonchi noted. No significant dullness noted on percussion. CHEST: Palpation of the chest wall shows no significant chest wall tenderness. HEART: [place] CLIENT CARE MANAGER, No PSH, 1/6 RANJIT aortic area, 1/6 willis systolic murmur mitral area, no rubs, no gallops. ABDOMEN: Soft, no significant tenderness appreciated, normoactive bowel sounds. No guarding, no rebound. No rigidity noted . No masses appreciated. EXTREMITIES: Pedal pulses are 1-2+, no calf tenderness noted. No clubbing or cyanosis. negative pedal edema noted NEUROLOGICAL: Patient noted to be alert and oriented 3. Cranial nerves WNL. Right lower extremity not examined due to fracture. PSYCH: Normal mood, normal affect. Judgment and insight within normal limits. SKIN: No significant ecchymosis, skin is noted to be warm. MUSCULOSKELETAL EXAM: No significant acute joint swelling noted. Findings indicative of right hip fracture. Results Laboratory Results: 11/26/17 04:48 11/26/17 04:48 11/26/17 11/26/17 04:48 04:48 WBC 18.4 H RBC 4.05 Hgb 11.8 L D Hct 35.2 L MCV 87 MCH 29.1 MCHC 33.5 RDW 14.2 H Plt Count 147 L Seg Neutrophils % Not Reportable Lymphocytes % Not Reportable Monocytes % Not Reportable Eosinophils % Not Reportable Basophils % Not Reportable Absolute Neutrophils Not Reportable Absolute Lymphocytes Not Reportable Absolute Monocytes Not Reportable Absolute Eosinophils Not Reportable Absolute Basophils Not Reportable Sodium 139.4 Potassium 4.2 Chloride 95 L Carbon Dioxide 33 H Anion Gap 11 BUN 29 H Creatinine 0.65 Est GFR ( Amer) > 60 Est GFR (Non-Af Amer) > 60 Glucose 144 H Calcium 8.8 Total Bilirubin 0.3 AST 17 ALT 23 Alkaline Phosphatase 54 Total Protein 6.2 L Albumin 3.6 EKG Comments: Shows sinus rhythm, no acute ST-T wave changes are noted. Impressions: Chest X-Ray 11/24/17 20:09 IMPRESSION: CHF. Hip/Pelvis X-Ray 11/24/17 20:10 IMPRESSION: Impacted subcapital fracture of the femoral neck. Foot X-Ray 11/24/17 20:11 IMPRESSION: No acute findings. There are changes in the talus in there are foreign bodies that are unchanged from the prior study. Knee X-Ray 11/24/17 20:11 IMPRESSION: Prepatellar soft tissue swelling with no acute osseous abnormality. Chest/Abdomen CTA 11/25/17 00:45 IMPRESSION: 1. Diffuse patchy and confluent airspace opacities throughout the lungs which are more prominent than on the comparison study. These findings are compatible with bilateral pneumonia. These findings could be seen with aspiration giving dependent location. 2. Small left pleural effusion. 3. No pulmonary embolus. This exam was performed according to our departmental dose-optimization program, which includes automated exposure control, adjustment of the mA and/or kV according to patient size and/or use of iterative reconstruction technique. Assessment & Plan - Diagnosis (1) Bilateral pneumonia Qualifiers: Pneumonia type: due to unspecified organism Lung location: unspecified part of lung Qualified Code(s): J18.9 - Pneumonia, unspecified organism Is this a current diagnosis for this admission?: Yes (2) Chronic obstructive pulmonary disease Qualifiers: COPD type: unspecified COPD Qualified Code(s): J44.9 - Chronic obstructive pulmonary disease, unspecified Is this a current diagnosis for this admission?: Yes (3) Hypertension Qualifiers: Hypertension type: essential hypertension Qualified Code(s): I10 - Essential (primary) hypertension Is this a current diagnosis for this admission?: Yes (4) Preoperative cardiovascular examination Is this a current diagnosis for this admission?: Yes - Notes Notes: Patient had a 2D echocardiogram which showed normal LVEF and moderate pulmonary hypertension. Patient's EKG without any acute ST-T wave changes. CT scan shows bilateral pneumonia. Am told by the primary care physician that patient being treated for pneumonia. May consider pulmonary consultation. I am told that patient might be ready for surgery on Wednesday. Will be happy to take care of any postop cardiology related problems. Bilateral pneumonia: Continue with antibiotic therapy. COPD: Continue with bronchodilator and steroid as previously prescribed. Hypertension: Blood pressure goal is 140/90. Reasonably well controlled. Preop cardiovascular examination: Cardiac munson patient is cleared but I believe that there is significant pulmonary issues. Patient has bilateral pneumonia. May want to have a notching machine operator on board. Right hip fracture: Patient being managed by Dr. Rodriguez. Would recommend DVT prophylaxis, adequate pain control, pulmonary toilet. We will be happy to take care of any cardiac problem as it arises during perioperative.. - Time Time with patient: Greater than 35 minutes - CODE STATUS : was discussed, patient remains DO NOT RESUSCITATE. Surrogate decision-maker unchanged. Multiple medical problems were addressed. More than 50% of the time spent coordinating care, discussing management plans with involved caregivers. Management plans discussed with involved personnels. Medical decision making was of moderate to high complexity, patient's has multiple comorbidities. Medications reviewed and adjusted accordingly: Yes
[2017-11-26 20:14] LABS: ARTERIAL BLOOD BASE EXCESS 9.3 mmol/L; ARTERIAL BLOOD H2CO3 1.82 mmol/L (1.05-1.35); ARTERIAL BLOOD HCO3 36.2 mmol/L (20-26); ARTERIAL BLOOD O2 SATURATION 96.3 % (94-98); ARTERIAL BLOOD PCO2 60.5 mmHg (35-45); ARTERIAL BLOOD PO2 87.1 mmHg (80-100); ARTERIAL BLOOD TOTAL CO2 38.1 mmol/L (21-25)
--- NOTE | 2017-11-26 20:21 | PROGRESS NOTE E ---
Progress Note NAME: MITCH ORELLANA : 1950 AGE: 67Y DATE: 11/26/2017 ROOM: 315 SUBJECTIVE: The patient is a 67-year-old female admitted because of increased shortness of breath and pneumonia. She came in with a right hip fracture. The patient claimed that she is scheduled for surgery next week. Denies any fever, chills. Denies any increased cough or purulent sputum production are noticed. Claims that she is breathing better. OBJECTIVE: GENERAL: The patient is awake, alert, coherent, oriented, atrial fibrillation. Not in apparent severe respiratory distress. VITAL SIGNS: Temperature 99.5 with a T-max of 98.8 and heart rate of 91, blood pressure is 122/53, respiration is 20, saturation is 94% on 30% fIo2. EYES: No jaundice or pallor. EARS, NOSE, AND THROAT: No ear drainage. No nasal discharge. HEAD AND NECK: No scalp swelling or tenderness. Neck is supple. CHEST AND LUNGS: No wheezing, no rhonchi, no coarse crackles. CARDIOVASCULAR: S1, S2 distinct. Normal rate, regular rhythm. ABDOMEN: Flabby, positive bowel sounds, nondistended. EXTREMITIES: No joint swelling. No knee joint or ankle swelling. The patient is able to sit down on the side chair. Has a history of right femoral fracture. ASSESSMENT: 1. PNEUMONIA, BILATERAL. Appeared to be improving. White count is still high at 18,000; probably due to IV steroids. 2. COPD/ASTHMA EXACERBATION. Currently stable and not in bronchospasm. 3. RIGHT HIP/FEMORAL FRACTURE. PLAN: 1. We will decrease the Solu-Medrol dose to 20 mg IV. 2. We will continue IV antibiotics for now, but recommend discontinue the cefepime tomorrow depending upon the CBC results. 3. Continue the Advair 250 DiskHaler 1 puff b.i.d. and Spiriva inhaler 1 capsule daily. DICTATING PHYSICIAN: ALPA GARCIA MD,ANNETTE,MPH 5020M [id number] PHY#: [id number] [id number] JOB#: [id number] ACCT: [id number] cc: > MTDD
--- NOTE | 2017-11-26 20:33 | EKG REPORT ---
SEVERITY:- NORMAL ECG - SINUS RHYTHM : Confirmed by: Malina Dobbins 26-Nov-2017 17:32:43
[2017-11-26] MEDS ORDERED: METHYLPREDNISOLONE INJ 40 MG/1 ML SDV IV SCH (22:00)
[2017-11-26] MEDS: OXYCODONE-ACETAMINOPHEN 5-325 MG TABLET PO PRN (23:01)
[2017-11-27] MEDS: LEVALBUTEROL HCL NEB 1.25 MG/3 ML AMPUL NEB SCH ×5 (04:20→20:36)
[2017-11-27 06:16] LABS: ANION GAP 9 (5-19); BLOOD UREA NITROGEN 25 mg/dL (7-20); CALCIUM 8.8 mg/dL (8.4-10.2); CARBON DIOXIDE 38 mmol/L (22-30); CHLORIDE 94 mmol/L (98-107); GLUCOSE 145 mg/dL (75-110); POTASSIUM 4.1 mmol/L (3.6-5.0); SODIUM 140.6 mmol/L (137-145)
[2017-11-27 06:21] LABS: HEMATOCRIT 34.5 % (36.0-47.0); HEMOGLOBIN 11.6 g/dL (12.0-15.5); MEAN CORPUSCULAR HEMOGLOBIN 29.2 pg (27.0-33.4); MEAN CORPUSCULAR HGB CONC 33.6 g/dL (32.0-36.0); MEAN CORPUSCULAR VOLUME 87 fl (80-97); PLATELET COUNT 135 10^3/uL (150-450); RED BLOOD COUNT 3.98 10^6/uL (3.72-5.28); RED CELL DISTRIBUTION WIDTH 14.2 % (11.5-14.0); WHITE BLOOD COUNT 13.2 10^3/uL (4.0-10.5)
[2017-11-27 07:08] LABS: ABSOLUTE LYMPHOCYTES# (MANUAL) 0.5 10^3/uL (0.5-4.7); ABSOLUTE NEUTROPHILS# (MANUAL) 12.7 10^3/uL (1.7-8.2); BASOPHILS % (MANUAL) 0 % (0-2); EOSINOPHILS % (MANUAL) 0 % (0-6); LYMPHOCYTES % (MANUAL) 4 % (13-45); MONOCYTES % (MANUAL) 0 % (3-13); SEGMENTED NEUTROPHILS % (MAN) 96 % (42-78); TOTAL CELLS COUNTED 100
[2017-11-27 07:09] LABS: PLATELET COMMENT ADEQUATE
[2017-11-27 07:10] LABS: ANISOCYTOSIS 1+; POLYCHROMASIA 1+
--- NOTE | 2017-11-27 09:31 | PDOC PROGRESS REPORT ---
Subjective Progress Note for:: 11/27/17 Subjective:: Patient is currently doing much better She has denied any chest pain denied any shortness of the breath Seen by the pulmonary Reason For Visit: HIP FX,COPD ACUTE Physical Exam Vital Signs: Temp Pulse Resp BP Pulse Ox 98.1 F 84 18 126/67 H 99 11/27/17 07:46 11/27/17 07:46 11/27/17 07:46 11/27/17 07:46 11/27/17 07:46 Intake & Output 11/26/17 11/27/17 11/28/17 06:59 06:59 06:59 Intake Total 483 555 Output Total 1700 1800 Balance -1217 -1245 Weight 63 kg 62.3 kg General appearance: PRESENT: no acute distress, well-developed, well-nourished Head exam: PRESENT: atraumatic, normocephalic Eye exam: PRESENT: conjunctiva pink, EOMI, PERRLA. ABSENT: scleral icterus Ear exam: PRESENT: normal external ear exam Mouth exam: PRESENT: moist, tongue midline Neck exam: PRESENT: full ROM. ABSENT: carotid bruit, JVD, lymphadenopathy, thyromegaly Respiratory exam: PRESENT: clear to auscultation ryley Cardiovascular exam: PRESENT: RRR. ABSENT: diastolic murmur, rubs, systolic murmur Pulses: PRESENT: normal dorsalis pedis pul, +2 pedal pulses bilateral Vascular exam: PRESENT: normal capillary refill GI/Abdominal exam: PRESENT: normal bowel sounds, soft. ABSENT: distended, guarding, mass, organolmegaly, rebound, tenderness Rectal exam: PRESENT: deferred Extremities exam: ABSENT: pedal edema Neurological exam: PRESENT: alert, awake, oriented to person, oriented to place , oriented to time, oriented to situation, CN II-XII grossly intact. ABSENT: motor sensory deficit Psychiatric exam: PRESENT: appropriate affect, normal mood. ABSENT: homicidal ideation, suicidal ideation Skin exam: PRESENT: dry, intact, warm. ABSENT: cyanosis, rash Results Laboratory Results: 11/27/17 05:18 11/27/17 05:18 11/26/17 11/27/17 11/27/17 20:00 05:18 05:18 WBC 13.2 H RBC 3.98 Hgb 11.6 L Hct 34.5 L MCV 87 MCH 29.2 MCHC 33.6 RDW 14.2 H Plt Count 135 L Seg Neutrophils % Not Reportable Lymphocytes % Not Reportable Monocytes % Not Reportable Eosinophils % Not Reportable Basophils % Not Reportable Absolute Neutrophils Not Reportable Absolute Lymphocytes Not Reportable Absolute Monocytes Not Reportable Absolute Eosinophils Not Reportable Absolute Basophils Not Reportable Carbonic Acid 1.82 H HCO3/H2CO3 Ratio 19:1 ABG pH 7.40 ABG pCO2 60.5 H ABG pO2 87.1 ABG HCO3 36.2 H ABG O2 Saturation 96.3 ABG Base Excess 9.3 FiO2 5.5% Sodium 140.6 Potassium 4.1 Chloride 94 L Carbon Dioxide 38 H Anion Gap 9 BUN 25 H Creatinine 0.55 Est GFR ( Amer) > 60 Est GFR (Non-Af Amer) > 60 Glucose 145 H Calcium 8.8 Impressions: Chest X-Ray 11/24/17 20:09 IMPRESSION: CHF. Hip/Pelvis X-Ray 11/24/17 20:10 IMPRESSION: Impacted subcapital fracture of the femoral neck. Foot X-Ray 11/24/17 20:11 IMPRESSION: No acute findings. There are changes in the talus in there are foreign bodies that are unchanged from the prior study. Knee X-Ray 11/24/17 20:11 IMPRESSION: Prepatellar soft tissue swelling with no acute osseous abnormality. Chest/Abdomen CTA 11/25/17 00:45 IMPRESSION: 1. Diffuse patchy and confluent airspace opacities throughout the lungs which are more prominent than on the comparison study. These findings are compatible with bilateral pneumonia. These findings could be seen with aspiration giving dependent location. 2. Small left pleural effusion. 3. No pulmonary embolus. This exam was performed according to our departmental dose-optimization program, which includes automated exposure control, adjustment of the mA and/or kV according to patient size and/or use of iterative reconstruction technique. Assessment & Plan - Diagnosis (1) Fracture of femoral neck, right, closed Qualifiers: Encounter type: initial encounter Qualified Code(s): S72.001A - Fracture of unspecified part of neck of right femur, initial encounter for closed fracture Is this a current diagnosis for this admission?: Yes Plan: Follow with the surgery (2) Fall Qualifiers: Encounter type: initial encounter Qualified Code(s): W19.XXXA - Unspecified fall, initial encounter Is this a current diagnosis for this admission?: Yes (3) Acute exacerbation of CHF (congestive heart failure) Qualifiers: Heart failure type: unspecified Qualified Code(s): I50.9 - Heart failure, unspecified Is this a current diagnosis for this admission?: Yes Plan: Continues to current medications (4) Bilateral pneumonia Qualifiers: Pneumonia type: due to unspecified organism Lung location: unspecified part of lung Qualified Code(s): J18.9 - Pneumonia, unspecified organism Is this a current diagnosis for this admission?: Yes Plan: Possible aspirations pneumonia will continues to IV cefepimeConsult the pulmonary (5) Acute hypercapnic respiratory failure Is this a current diagnosis for this admission?: Yes (6) Chronic obstructive pulmonary disease Qualifiers: COPD type: unspecified COPD Qualified Code(s): J44.9 - Chronic obstructive pulmonary disease, unspecified Is this a current diagnosis for this admission?: Yes Plan: Continues to current medications current nebulizer (7) Post-polio syndrome Is this a current diagnosis for this admission?: Yes - Time Time Spent with patient: 15-24 minutes Medications reviewed and adjusted accordingly: Yes Anticipated discharge: Other Within: Other - Inpatient Certification Medical Necessity: Need Close Monitoring Due to Risk of Patient Decompensation, Need for IV Antibiotics Post Hospital Care: D/C Media Aid Documentation - Plan Summary Plan Summary: Reduce the steroid Continues current medications
[2017-11-27] MEDS: DOCUSATE SODIUM 100 MG CAPSULE PO SCH (10:09)
[2017-11-27] MEDS: FUROSEMIDE 20 MG TABLET PO SCH (10:09)
[2017-11-27] MEDS: METOPROLOL SUCCINATE 50 MG TAB.SR.24H PO SCH (10:09)
[2017-11-27] MEDS: OXYCODONE-ACETAMINOPHEN 5-325 MG TABLET PO PRN (10:09)
[2017-11-27] MEDS: ESCITALOPRAM OXALATE 10 MG TABLET PO SCH (10:10)
[2017-11-27] MEDS: ASPIRIN 81 MG TABLET, ENT COATED PO SCH (10:10)
[2017-11-27] MEDS: LOSARTAN POTASSIUM 50 MG TABLET PO SCH (10:10)
[2017-11-27] MEDS: FLUTICASONE/SALMETEROL DISKUS 250-50 MCG/DOSE IH SCH ×2 (10:10→22:12)
[2017-11-27] MEDS: FAMOTIDINE INJ/PF 20 MG/2 ML SDV IV SCH ×2 (10:10→22:14)
[2017-11-27] MEDS: LEVOFLOXACIN 750 MG/D5W RTU 750 MG/150 ML RTUPB IV SCH (10:11)
[2017-11-27] MEDS: TIOTROPIUM BROMIDE DPI 5 CAP/KIT (18 MCG/CAP) IH SCH (10:11)
[2017-11-27] MEDS: ENOXAPARIN SODIUM INJ 40 MG/0.4 ML DISP.SYRIN SUBCUT SCH (10:11)
[2017-11-27] MEDS: METHYLPREDNISOLONE INJ 40 MG/1 ML SDV IV SCH (10:31)
[2017-11-27] MEDS: CEFEPIME 2 GM/D5W RTU 2 GM/50 ML RTUPB IV SCH ×2 (12:02→22:12)
--- NOTE | 2017-11-27 12:23 | PDOC PROGRESS REPORT ---
Subjective Progress Note for:: 11/27/17 Subjective:: Patient complaining of right hip pain which she claims is worse. Pt is denying any chest arm or neck discomfort. Patient denying any PND, orthopnea. Patient denied any sustained palpitations, dizziness, syncope, near syncope. Patient denying any fever chills. Patient denying any other significant discomfort. Patient is maintaining sinus rhythm. Review of systems: Rest review of systems negative. Medications: Medications have been reviewed. Reason For Visit: HIP FX,COPD ACUTE Physical Exam Vital Signs: Temp Pulse Resp BP Pulse Ox 98.1 F 78 16 126/67 H 99 11/27/17 07:46 11/27/17 08:50 11/27/17 08:50 11/27/17 07:46 11/27/17 07:46 Intake & Output 11/26/17 11/27/17 11/28/17 06:59 06:59 06:59 Intake Total 483 555 Output Total 1700 1800 Balance -1217 -1245 Weight 63 kg 62.3 kg Exam: GENERAL: well-nourished and in no acute distress. Alert and oriented x3 HEAD: Atraumatic, normocephalic. EYES: Pupils equal round and reactive to light, extraocular movements intact, sclera anicteric, conjunctiva are normal. ENT: TMs normal, nares patent, oropharynx clear without exudates. Moist mucous membranes. No oral ulcerations or bleeding gums noted NECK: supple without lymphadenopathy. Trachea is central. No cervical or axillary lymphadenopathy noted. Carotids are 2+, JVD WNL LUNGS: Respiration seems nonlabored, no significant accessory muscle action noted. Bibasilar fine crackles and few scattered wheezes rales or rhonchi noted. No significant dullness noted on percussion. CHEST: Palpation of the chest wall shows no significant chest wall tenderness. 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 ABDOMEN: Soft, no significant tenderness appreciated, normoactive bowel sounds. No guarding, no rebound. No rigidity noted . No masses appreciated. EXTREMITIES: Pedal pulses are 1-2+, no calf tenderness noted. No clubbing or cyanosis. negative pedal edema noted NEUROLOGICAL: Patient alert oriented 3. No cranial nerve patency noted. Patient has right hip fracture. Right lower extremity strength not evaluated but patient is able to move 3 other extremities reasonably well. PSYCH: Normal mood, normal affect. Judgment and insight within normal limits. SKIN: No significant ecchymosis, skin is noted to be warm. MUSCULOSKELETAL EXAM: No significant acute joint swelling noted. Findings of right hip fracture noted. Results Laboratory Results: 11/27/17 05:18 11/27/17 05:18 11/26/17 11/27/17 11/27/17 20:00 05:18 05:18 WBC 13.2 H RBC 3.98 Hgb 11.6 L Hct 34.5 L MCV 87 MCH 29.2 MCHC 33.6 RDW 14.2 H Plt Count 135 L Seg Neutrophils % Not Reportable Lymphocytes % Not Reportable Monocytes % Not Reportable Eosinophils % Not Reportable Basophils % Not Reportable Absolute Neutrophils Not Reportable Absolute Lymphocytes Not Reportable Absolute Monocytes Not Reportable Absolute Eosinophils Not Reportable Absolute Basophils Not Reportable Carbonic Acid 1.82 H HCO3/H2CO3 Ratio 19:1 ABG pH 7.40 ABG pCO2 60.5 H ABG pO2 87.1 ABG HCO3 36.2 H ABG O2 Saturation 96.3 ABG Base Excess 9.3 FiO2 5.5% Sodium 140.6 Potassium 4.1 Chloride 94 L Carbon Dioxide 38 H Anion Gap 9 BUN 25 H Creatinine 0.55 Est GFR ( Amer) > 60 Est GFR (Non-Af Amer) > 60 Glucose 145 H Calcium 8.8 EKG Comments: Telemetry strips shows sinus rhythm no sustained tachycardia or bradycardia noted. Impressions: Chest X-Ray 11/24/17 20:09 IMPRESSION: CHF. Hip/Pelvis X-Ray 11/24/17 20:10 IMPRESSION: Impacted subcapital fracture of the femoral neck. Foot X-Ray 11/24/17 20:11 IMPRESSION: No acute findings. There are changes in the talus in there are foreign bodies that are unchanged from the prior study. Knee X-Ray 11/24/17 20:11 IMPRESSION: Prepatellar soft tissue swelling with no acute osseous abnormality. Chest/Abdomen CTA 11/25/17 00:45 IMPRESSION: 1. Diffuse patchy and confluent airspace opacities throughout the lungs which are more prominent than on the comparison study. These findings are compatible with bilateral pneumonia. These findings could be seen with aspiration giving dependent location. 2. Small left pleural effusion. 3. No pulmonary embolus. This exam was performed according to our departmental dose-optimization program, which includes automated exposure control, adjustment of the mA and/or kV according to patient size and/or use of iterative reconstruction technique. Assessment & Plan - Diagnosis (1) Bilateral pneumonia Qualifiers: Pneumonia type: due to unspecified organism Lung location: unspecified part of lung Qualified Code(s): J18.9 - Pneumonia, unspecified organism Is this a current diagnosis for this admission?: Yes (2) Chronic obstructive pulmonary disease Qualifiers: COPD type: unspecified COPD Qualified Code(s): J44.9 - Chronic obstructive pulmonary disease, unspecified Is this a current diagnosis for this admission?: Yes (3) Hypertension Qualifiers: Hypertension type: essential hypertension Qualified Code(s): I10 - Essential (primary) hypertension Is this a current diagnosis for this admission?: Yes (4) Preoperative cardiovascular examination Is this a current diagnosis for this admission?: Yes - Notes Notes: EKG is no significant ischemic changes. BNP normal. Will repeat an EKG in the morning. I am told that patient might go for surgery on Wednesday. Will recommend statin therapy as this has been shown to reduce perioperative risk. Continue with home dose of beta-blockers. Bilateral pneumonia: Continue with antibiotic therapy. COPD: Continue with bronchodilator and steroid as previously prescribed. Hypertension: Blood pressure goal is 140/90. Reasonably well controlled. Preop cardiovascular examination: Cardiac munson patient is cleared but I believe that there is significant pulmonary issues. Patient has bilateral pneumonia. May want to have a shade maker on board. Right hip fracture: Patient being managed by Dr. Rodriguez. Would recommend DVT prophylaxis, adequate pain control, pulmonary toilet. We will be happy to take care of any cardiac problem as it arises during perioperative.. - Time Time with patient: Greater than 35 minutes - More than 50% of the time spent coordinating care, discussing management plans with involved caregivers. Management plans discussed with involved personnels. Medical decision making was of moderate to high complexity, patient's has multiple comorbidities. Patient remains a DNR Medications reviewed and adjusted accordingly: Yes
[2017-11-27] MEDS ORDERED: ATORVASTATIN CALCIUM 40 MG TABLET PO SCH (22:00)
[2017-11-27] MEDS: ATORVASTATIN CALCIUM 20 MG TABLET PO SCH (22:13)
[2017-11-28] MEDS: LEVALBUTEROL HCL NEB 1.25 MG/3 ML AMPUL NEB SCH ×3 (04:47→08:23)
[2017-11-28] MEDS: OXYCODONE-ACETAMINOPHEN 5-325 MG TABLET PO PRN (06:02)
[2017-11-28 07:13] LABS: ABSOLUTE EOSINOPHILS # (AUTO) 0.1 10^3/uL (0.0-0.6); ABSOLUTE MONOCYTES (AUTO) 0.8 10^3/uL (0.1-1.4); ABSOLUTE NEUT (AUTO) 7.7 10^3/uL (1.7-8.2); BASOPHILS % (AUTO) 0.1 % (0-2); EOSINOPHILS % (AUTO) 0.6 % (0-6); HEMATOCRIT 37.2 % (36.0-47.0); HEMOGLOBIN 12.4 g/dL (12.0-15.5); MEAN CORPUSCULAR HEMOGLOBIN 29.1 pg (27.0-33.4); MEAN CORPUSCULAR HGB CONC 33.5 g/dL (32.0-36.0); MEAN CORPUSCULAR VOLUME 87 fl (80-97); MONOCYTES % (AUTO) 8.4 % (3-13); PLATELET COUNT 130 10^3/uL (150-450); RED BLOOD COUNT 4.27 10^6/uL (3.72-5.28); RED CELL DISTRIBUTION WIDTH 14.5 % (11.5-14.0); SEGMENTED NEUTROPHILS % (AUTO) 80.9 % (42-78); TOTAL CELLS COUNTED % (AUTO) 100 %; WHITE BLOOD COUNT 9.6 10^3/uL (4.0-10.5)
--- NOTE | 2017-11-28 07:48 | PDOC PROGRESS REPORT ---
Subjective Progress Note for:: 11/28/17 Subjective:: Patient is currently doing much better She has denied any chest pain denied any shortness of the breath Seen by the pulmonary Reason For Visit: HIP FX,COPD ACUTE Physical Exam Vital Signs: Temp Pulse Resp BP Pulse Ox 98.5 F 94 16 153/78 H 97 11/28/17 03:12 11/28/17 03:12 11/28/17 03:12 11/28/17 03:12 11/28/17 03:12 Intake & Output 11/26/17 11/27/17 11/28/17 06:59 06:59 06:59 Intake Total 483 555 975 Output Total 1700 1800 2175 Balance -1217 1241 -1200 Weight 63 kg 62.3 kg General appearance: PRESENT: no acute distress, well-developed, well-nourished Head exam: PRESENT: atraumatic, normocephalic Eye exam: PRESENT: conjunctiva pink, EOMI, PERRLA. ABSENT: scleral icterus Ear exam: PRESENT: normal external ear exam Mouth exam: PRESENT: moist, tongue midline Neck exam: PRESENT: full ROM. ABSENT: carotid bruit, JVD, lymphadenopathy, thyromegaly Respiratory exam: PRESENT: clear to auscultation ryley Cardiovascular exam: PRESENT: RRR. ABSENT: diastolic murmur, rubs, systolic murmur Pulses: PRESENT: normal dorsalis pedis pul, +2 pedal pulses bilateral Vascular exam: PRESENT: normal capillary refill GI/Abdominal exam: PRESENT: normal bowel sounds, soft. ABSENT: distended, guarding, mass, organolmegaly, rebound, tenderness Rectal exam: PRESENT: deferred Extremities exam: ABSENT: pedal edema Neurological exam: PRESENT: alert, awake, oriented to person, oriented to place , oriented to time, oriented to situation, CN II-XII grossly intact. ABSENT: motor sensory deficit Psychiatric exam: PRESENT: appropriate affect, normal mood. ABSENT: homicidal ideation, suicidal ideation Skin exam: PRESENT: dry, intact, warm. ABSENT: cyanosis, rash Results Laboratory Results: 11/27/17 05:18 11/27/17 05:18 11/27/17 05:18 WBC 13.2 H RBC 3.98 Hgb 11.6 L Hct 34.5 L MCV 87 MCH 29.2 MCHC 33.6 RDW 14.2 H Plt Count 135 L Seg Neutrophils % Not Reportable Lymphocytes % Not Reportable Monocytes % Not Reportable Eosinophils % Not Reportable Basophils % Not Reportable Absolute Neutrophils Not Reportable Absolute Lymphocytes Not Reportable Absolute Monocytes Not Reportable Absolute Eosinophils Not Reportable Absolute Basophils Not Reportable Impressions: Chest X-Ray 11/24/17 20:09 IMPRESSION: CHF. Hip/Pelvis X-Ray 11/24/17 20:10 IMPRESSION: Impacted subcapital fracture of the femoral neck. Foot X-Ray 11/24/17 20:11 IMPRESSION: No acute findings. There are changes in the talus in there are foreign bodies that are unchanged from the prior study. Knee X-Ray 11/24/17 20:11 IMPRESSION: Prepatellar soft tissue swelling with no acute osseous abnormality. Chest/Abdomen CTA 11/25/17 00:45 IMPRESSION: 1. Diffuse patchy and confluent airspace opacities throughout the lungs which are more prominent than on the comparison study. These findings are compatible with bilateral pneumonia. These findings could be seen with aspiration giving dependent location. 2. Small left pleural effusion. 3. No pulmonary embolus. This exam was performed according to our departmental dose-optimization program, which includes automated exposure control, adjustment of the mA and/or kV according to patient size and/or use of iterative reconstruction technique. Assessment & Plan - Diagnosis (1) Fracture of femoral neck, right, closed Qualifiers: Encounter type: initial encounter Qualified Code(s): S72.001A - Fracture of unspecified part of neck of right femur, initial encounter for closed fracture Is this a current diagnosis for this admission?: Yes Plan: Follow with the surgery (2) Fall Qualifiers: Encounter type: initial encounter Qualified Code(s): W19.XXXA - Unspecified fall, initial encounter Is this a current diagnosis for this admission?: Yes (3) Acute exacerbation of CHF (congestive heart failure) Qualifiers: Heart failure type: unspecified Qualified Code(s): I50.9 - Heart failure, unspecified Is this a current diagnosis for this admission?: Yes Plan: Continues to current medications (4) Bilateral pneumonia Qualifiers: Pneumonia type: due to unspecified organism Lung location: unspecified part of lung Qualified Code(s): J18.9 - Pneumonia, unspecified organism Is this a current diagnosis for this admission?: Yes Plan: Possible aspirations pneumonia will continues to IV cefepimeConsult the pulmonary (5) Acute hypercapnic respiratory failure Is this a current diagnosis for this admission?: Yes (6) Chronic obstructive pulmonary disease Qualifiers: COPD type: unspecified COPD Qualified Code(s): J44.9 - Chronic obstructive pulmonary disease, unspecified Is this a current diagnosis for this admission?: Yes Plan: Continues to current medications current nebulizer (7) Post-polio syndrome Is this a current diagnosis for this admission?: Yes - Time Time Spent with patient: 15-24 minutes Medications reviewed and adjusted accordingly: Yes Anticipated discharge: Other Within: Other - Inpatient Certification Medical Necessity: Need Close Monitoring Due to Risk of Patient Decompensation Post Hospital Care: 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
[2017-11-28 07:56] LABS: BLOOD UREA NITROGEN 16 mg/dL (7-20); CHLORIDE 94 mmol/L (98-107); GLUCOSE 87 mg/dL (75-110); POTASSIUM 3.8 mmol/L (3.6-5.0); SODIUM 142.7 mmol/L (137-145)
[2017-11-28 08:02] LABS: ANION GAP 12 (5-19); CARBON DIOXIDE 37 mmol/L (22-30)
[2017-11-28] MEDS: FUROSEMIDE 20 MG TABLET PO SCH (09:54)
[2017-11-28] MEDS: METOPROLOL SUCCINATE 50 MG TAB.SR.24H PO SCH (09:54)
[2017-11-28] MEDS: DOCUSATE SODIUM 100 MG CAPSULE PO SCH ×2 (09:54→18:56)
[2017-11-28] MEDS: ASPIRIN 81 MG TABLET, ENT COATED PO SCH (09:54)
[2017-11-28] MEDS: LOSARTAN POTASSIUM 50 MG TABLET PO SCH (09:54)
[2017-11-28] MEDS: ENOXAPARIN SODIUM INJ 40 MG/0.4 ML DISP.SYRIN SUBCUT SCH (09:55)
[2017-11-28] MEDS: ESCITALOPRAM OXALATE 10 MG TABLET PO SCH (09:55)
[2017-11-28] MEDS: CEFEPIME 2 GM/D5W RTU 2 GM/50 ML RTUPB IV SCH (09:55)
[2017-11-28] MEDS: METHYLPREDNISOLONE INJ 40 MG/1 ML SDV IV SCH (09:55)
[2017-11-28] MEDS: FAMOTIDINE INJ/PF 20 MG/2 ML SDV IV SCH ×2 (09:55→22:29)
--- NOTE | 2017-11-28 09:56 | PDOC PROGRESS REPORT ---
Subjective Progress Note for:: 11/28/17 Subjective:: Patient complaining of right hip pain. Otherwise noted to be stable. Pt is denying any chest arm or neck discomfort. Patient denying any PND, orthopnea. Patient denied any sustained palpitations, dizziness, syncope, near syncope. Patient denying any fever chills. Patient denying any other significant discomfort. Patient is maintaining sinus rhythm. Review of systems: Rest review of systems negative. Medications: Medications have been reviewed. Reason For Visit: HIP FX,COPD ACUTE Physical Exam Vital Signs: Temp Pulse Resp BP Pulse Ox 98.5 F 76 18 130/68 H 97 11/28/17 07:47 11/28/17 07:47 11/28/17 07:47 11/28/17 07:47 11/28/17 07:47 Intake & Output 11/27/17 11/28/17 11/29/17 06:59 06:59 06:59 Intake Total 555 975 Output Total 1800 2400 Balance -1245 -1425 Weight 62.3 kg 64.8 kg Exam: GENERAL: well-nourished and in no acute distress. Alert and oriented x3 HEAD: Atraumatic, normocephalic. EYES: Pupils equal round and reactive to light, extraocular movements intact, sclera anicteric, conjunctiva are normal. ENT: TMs normal, nares patent, oropharynx clear without exudates. Moist mucous membranes. No oral ulcerations or bleeding gums noted NECK: supple without lymphadenopathy. Trachea is central. No cervical or axillary lymphadenopathy noted. Carotids are 2+, JVD WNL LUNGS: Respiration seems nonlabored, no significant accessory muscle action noted. Bibasilar fine crackles are noted. No wheezes rales or rhonchi noted. No significant dullness noted on percussion. CHEST: Palpation of the chest wall shows no significant chest wall tenderness. 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 ABDOMEN: Soft, no significant tenderness appreciated, normoactive bowel sounds. No guarding, no rebound. No rigidity noted . No masses appreciated. EXTREMITIES: Pedal pulses are 1-2+, no calf tenderness noted. No clubbing or cyanosis. negative pedal edema noted NEUROLOGICAL: Focused neurological exam showed no significant neurologic deficit. Normal speech, no focal weakness appreciated. PSYCH: Normal mood, normal affect. Judgment and insight within normal limits. SKIN: No significant ecchymosis, skin is noted to be warm. MUSCULOSKELETAL EXAM: No significant acute joint swelling noted. Findings of right hip fracture noted. Results Laboratory Results: 11/28/17 05:49 11/28/17 05:49 11/28/17 11/28/17 05:49 05:49 WBC 9.6 RBC 4.27 Hgb 12.4 Hct 37.2 MCV 87 MCH 29.1 MCHC 33.5 RDW 14.5 H Plt Count 130 L Seg Neutrophils % 80.9 H Lymphocytes % 10.0 L Monocytes % 8.4 Eosinophils % 0.6 Basophils % 0.1 Absolute Neutrophils 7.7 Absolute Lymphocytes 1.0 Absolute Monocytes 0.8 Absolute Eosinophils 0.1 Absolute Basophils 0.0 Sodium 142.7 Potassium 3.8 Chloride 94 L Carbon Dioxide 37 H Anion Gap 12 BUN 16 Creatinine 0.51 L Est GFR ( Amer) > 60 Est GFR (Non-Af Amer) > 60 Glucose 87 Calcium 9.0 EKG Comments: Showed sinus rhythm without any sustained tachycardia or bradycardia. Impressions: Chest X-Ray 11/24/17 20:09 IMPRESSION: CHF. Hip/Pelvis X-Ray 11/24/17 20:10 IMPRESSION: Impacted subcapital fracture of the femoral neck. Foot X-Ray 11/24/17 20:11 IMPRESSION: No acute findings. There are changes in the talus in there are foreign bodies that are unchanged from the prior study. Knee X-Ray 11/24/17 20:11 IMPRESSION: Prepatellar soft tissue swelling with no acute osseous abnormality. Chest/Abdomen CTA 11/25/17 00:45 IMPRESSION: 1. Diffuse patchy and confluent airspace opacities throughout the lungs which are more prominent than on the comparison study. These findings are compatible with bilateral pneumonia. These findings could be seen with aspiration giving dependent location. 2. Small left pleural effusion. 3. No pulmonary embolus. This exam was performed according to our departmental dose-optimization program, which includes automated exposure control, adjustment of the mA and/or kV according to patient size and/or use of iterative reconstruction technique. Assessment & Plan - Diagnosis (1) Bilateral pneumonia Qualifiers: Pneumonia type: due to unspecified organism Lung location: unspecified part of lung Qualified Code(s): J18.9 - Pneumonia, unspecified organism Is this a current diagnosis for this admission?: Yes (2) Chronic obstructive pulmonary disease Qualifiers: COPD type: unspecified COPD Qualified Code(s): J44.9 - Chronic obstructive pulmonary disease, unspecified Is this a current diagnosis for this admission?: Yes (3) Hypertension Qualifiers: Hypertension type: essential hypertension Qualified Code(s): I10 - Essential (primary) hypertension Is this a current diagnosis for this admission?: Yes (4) Preoperative cardiovascular examination Is this a current diagnosis for this admission?: Yes (5) Fracture of femoral neck, right, closed Qualifiers: Encounter type: initial encounter Qualified Code(s): S72.001A - Fracture of unspecified part of neck of right femur, initial encounter for closed fracture Is this a current diagnosis for this admission?: Yes - Notes Notes: EKG is no significant ischemic changes. BNP normal. Repeat EKG today normal. I am told that patient might go for surgery on Wednesday. Will recommend statin therapy as this has been shown to reduce perioperative risk. Continue with home dose of beta-blockers. Patient started on statin therapy yesterday. Bilateral pneumonia: Continue with antibiotic therapy. COPD: Continue with bronchodilator and steroid as previously prescribed. Hypertension: Blood pressure goal is 140/90. Reasonably well controlled. Preop cardiovascular examination: Cardiac munson patient is cleared but I believe that there is significant pulmonary issues. Patient has bilateral pneumonia. May want to have a diabetes trainer on board. Right hip fracture: Patient being managed by Dr. Rodriguez. Would recommend DVT prophylaxis, adequate pain control, pulmonary toilet. We will be happy to take care of any cardiac problem as it arises during perioperative.. - Time Time with patient: 15-25 minutes - CODE STATUS : was discussed, patient remains DO NOT RESUSCITATE. Surrogate decision-maker unchanged. Multiple medical problems were addressed. More than 50% of the time spent coordinating care, discussing management plans with involved caregivers. Management plans discussed with involved personnels. Medical decision making was of moderate to high complexity, patient's has multiple comorbidities. Medications reviewed and adjusted accordingly: Yes
[2017-11-28] MEDS ORDERED: LEVALBUTEROL HCL NEB 1.25 MG/3 ML AMPUL NEB PRN (10:00)
[2017-11-28] MEDS: TIOTROPIUM BROMIDE DPI 5 CAP/KIT (18 MCG/CAP) IH SCH (10:12)
[2017-11-28] MEDS: FLUTICASONE/SALMETEROL DISKUS 250-50 MCG/DOSE IH SCH ×2 (10:15→22:29)
--- NOTE | 2017-11-28 20:16 | PROGRESS NOTE E ---
Progress Note NAME: MITCH ORELLANA : 1950 AGE: 67Y DATE: 11/28/2017 ROOM: 315 SUBJECTIVE: Patient is a 67-year-old female who came in with pneumonia, bilateral, bibasal, associated with increased shortness of breath and fracture of the right femur. Patient is to be scheduled tomorrow for surgery. Currently, patient is doing okay, breathing comfortably. Denies any increased cough or sputum production, and no hemoptysis. Has been afebrile for the last 2 days. OBJECTIVE: VITAL SIGNS: Patient is awake, alert, afebrile, currently oriented x3, with a temperature of 98.9, with a T-max of 98.9. Pulse rate of 85, blood pressure 131/57, respirations of 20, saturations 94% on nasal cannula at 3 liters. EYES: No jaundice or pallor. EARS, NOSE AND THROAT: No ear drainage. No nasal discharge. HEAD AND NECK: No scalp swelling or neck tenderness. CHEST AND LUNGS: No wheezing, no rhonchi, no coarse crackles. CARDIOVASCULAR: S1, S2 distant. Normal rate, regular rhythm. ABDOMEN: Flabby. Positive bowel sounds. Soft, nondistended, nontender. EXTREMITIES: No joint swelling or cellulitis. LABORATORY DATA: CBC done this morning showed a white count of 9.6, came down from 13.2 yesterday. Hemoglobin is 12.4, hematocrit 7.2, platelet count is 130,000. Chemistry done today showed sodium of 142, potassium 3.8, chloride 94, CO2 is 37, BUN is 16, creatinine is 0.54. Glucose is 87. Calcium is 8. ASSESSMENT: 1. PNEUMONIA, BIBASAL. Appears to be stable, clinically improving. 2. BRONCHIAL ASTHMA, NOT IN ACUTE EXACERBATION AND CURRENTLY STABLE. 3. IMPACTED FRACTURE, RIGHT FEMUR. PLAN/RECOMMENDATIONS: 1. Continue the Advair 250/50 one puff daily. 2. Continue albuterol inhaler as needed. 3. Continue Levaquin 750 mg once daily. DICTATING PHYSICIAN: ALPA GARCIA MD,ANNETTE,MPH [id number] [id number] PHY#: [id number] ID: [id number] JOB#: [id number] ACCT: [id number] cc: > MTDD
[2017-11-28] MEDS: ATORVASTATIN CALCIUM 20 MG TABLET PO SCH (22:28)
[2017-11-29 05:18] LABS: ABSOLUTE EOSINOPHILS # (AUTO) 0.3 10^3/uL (0.0-0.6); ABSOLUTE LYMPHOCYTES (AUTO) 1.6 10^3/uL (0.5-4.7); ABSOLUTE MONOCYTES (AUTO) 0.8 10^3/uL (0.1-1.4); ABSOLUTE NEUT (AUTO) 4.7 10^3/uL (1.7-8.2); BASOPHILS % (AUTO) 0.1 % (0-2); HEMATOCRIT 37.7 % (36.0-47.0); HEMOGLOBIN 12.6 g/dL (12.0-15.5); LYMPHOCYTES % (AUTO) 21.4 % (13-45); MEAN CORPUSCULAR HGB CONC 33.4 g/dL (32.0-36.0); MEAN CORPUSCULAR VOLUME 87 fl (80-97); MONOCYTES % (AUTO) 10.2 % (3-13); PLATELET COUNT 136 10^3/uL (150-450); RED BLOOD COUNT 4.34 10^6/uL (3.72-5.28); RED CELL DISTRIBUTION WIDTH 13.9 % (11.5-14.0); SEGMENTED NEUTROPHILS % (AUTO) 64.3 % (42-78); TOTAL CELLS COUNTED % (AUTO) 100 %; WHITE BLOOD COUNT 7.3 10^3/uL (4.0-10.5)
[2017-11-29 05:32] LABS: ANION GAP 8 (5-19); BLOOD UREA NITROGEN 20 mg/dL (7-20); CALCIUM 8.7 mg/dL (8.4-10.2); CARBON DIOXIDE 37 mmol/L (22-30); CHLORIDE 97 mmol/L (98-107); GLUCOSE 81 mg/dL (75-110); SODIUM 142.2 mmol/L (137-145)
[2017-11-29] MEDS ORDERED: CEFAZOLIN 2 GM/D5W RTU 2 GM/50 ML RTUPB IV PRN (06:35)
[2017-11-29] MEDS: RINGERS SOLUTION,LACTATED 1,000 ML IV PRN ×2 (07:05→21:55)
--- NOTE | 2017-11-29 07:55 | EKG REPORT ---
SEVERITY:- OTHERWISE NORMAL ECG - SINUS RHYTHM BASELINE DISTORTION : Confirmed by: Aleksandar Braun MD 29-Nov-2017 07:54:27
[2017-11-29] MEDS: ENOXAPARIN SODIUM INJ 40 MG/0.4 ML DISP.SYRIN SUBCUT SCH (09:02)
--- NOTE | 2017-11-29 09:04 | RADIOLOGY REPORT (SQ) ---
EXAM DESCRIPTION: CHEST SINGLE VIEW COMPLETED DATE/TIME: 11/29/2017 7:46 am REASON FOR STUDY: pneumonia bilateral COMPARISON: 11/24/2017 EXAM PARAMETERS: NUMBER OF VIEWS: One view. TECHNIQUE: Single frontal radiographic view of the chest acquired. RADIATION DOSE: NA LIMITATIONS: None. FINDINGS: LUNGS AND PLEURA: Interval clearing of the previously demonstrated airspace disease in th e lungs. No pneumothorax or pleural effusion. MEDIASTINUM AND HILAR STRUCTURES: Stable appearance. HEART AND VASCULAR STRUCTURES: Stable appearance. BONES: No acute findings. HARDWARE: Howe rods and levoconvex scoliosis. OTHER: No other significant finding. IMPRESSION: 1 Since the prior examination dated 11/24/2017, interval resolution of the airspace disea se in the lungs. TECHNICAL DOCUMENTATION: JOB ID: [id number] [employer]- All Rights Reserved Reading location - IP/workstation name: [email or web address]
[2017-11-29] MEDS: FAMOTIDINE INJ/PF 20 MG/2 ML SDV IV SCH ×2 (09:35→21:09)
[2017-11-29] MEDS: LEVOFLOXACIN 750 MG/D5W RTU 750 MG/150 ML RTUPB IV SCH (09:35)
[2017-11-29] MEDS: METHYLPREDNISOLONE INJ 40 MG/1 ML SDV IV SCH (09:38)
[2017-11-29] MEDS: OXYCODONE-ACETAMINOPHEN 5-325 MG TABLET PO PRN ×2 (09:39→21:10)
[2017-11-29] MEDS: FLUTICASONE/SALMETEROL DISKUS 250-50 MCG/DOSE IH SCH ×2 (09:40→21:11)
[2017-11-29] MEDS: METOPROLOL SUCCINATE 50 MG TAB.SR.24H PO SCH (09:44)
[2017-11-29] MEDS: TIOTROPIUM BROMIDE DPI 5 CAP/KIT (18 MCG/CAP) IH SCH (09:44)
[2017-11-29] MEDS ORDERED: MIDAZOLAM 2 MG/2 ML INJ ONE (14:14)
[2017-11-29] MEDS ORDERED: PROPOFOL INJ 200 MG/20 ML VIAL IV ONE (14:14)
[2017-11-29] MEDS ORDERED: CEFAZOLIN INJ 1 GM VIAL ONE (14:18)
[2017-11-29] MEDS ORDERED: FENTANYL CITRATE INJ/PF 100 MCG/2 ML AMPUL ONE (14:47)
[2017-11-29] MEDS ORDERED: BUPIVACAINE HCL 0.5%-EPI 1:200000 INJ/PF 30 ML VIAL ONE (16:15)
[2017-11-29] MEDS ORDERED: OXYCODONE-ACETAMINOPHEN 5-325 MG TABLET PO PRN ×2 (16:20)
[2017-11-29] MEDS ORDERED: MORPHINE SULFATE 10 MG/ML INJ IV PRN (16:20)
[2017-11-29] MEDS ORDERED: FENTANYL CITRATE INJ/PF 100 MCG/2 ML AMPUL IV PRN ×3 (16:20)
[2017-11-29] MEDS ORDERED: PROMETHAZINE HCL INJ 25 MG/1 ML VIAL IV PRN ×2 (16:20)
[2017-11-29] MEDS ORDERED: DIPHENHYDRAMINE HCL 50 MG/ML VIAL IV PRN (16:20)
--- NOTE | 2017-11-29 16:34 | Operative Report ---
Operative Report DATE OF SURGERY: 11/29/17 PREOPERATIVE DIAGNOSIS: Right femoral neck fracture OPERATION: Percutaneous fixation right femoral neck fracture SURGEON: WINNIE RODRIGUEZ ANESTHESIA: LMAC ESTIMATED BLOOD LOSS: Minimal PROCEDURE: The patient supine on the fracture table the right lower extremities prepped and draped in sterile fashion. Under fluoroscopic guidance pins for the Lalita 6.5 mm titanium cannulated screws were placed through the femoral neck up into the femoral head. The placed in a triangular fashion with a single pin along the calcar into more proximal and spread apart anterior posterior. There are placement was checked fluoroscopically in 2 dimensions. Subsequently 3 cannulated titanium screws were advanced over the guide rods for appropriate depth. The pins are removed. The placement was checked fluoroscopically and felt to be adequate. There is some difficulty in visualizing the femoral head in a lateral projection. At this point the wound is irrigated. Disclosures interrupted Vicryl followed by becca. A sterile compressive dressing was applied and the patient was turned to PACU in satisfactory condition.
[2017-11-29] MEDS: POLYETHYLENE GLYCOL 3350 POWDER 17 GM/1 PACKET PO SCH (18:08)
[2017-11-29] MEDS: ESCITALOPRAM OXALATE 10 MG TABLET PO SCH (18:09)
[2017-11-29] MEDS: DOCUSATE SODIUM 100 MG CAPSULE PO SCH ×2 (18:09)
[2017-11-29] MEDS: LOSARTAN POTASSIUM 50 MG TABLET PO SCH (18:10)
[2017-11-29] MEDS: ASPIRIN 81 MG TABLET, ENT COATED PO SCH (18:10)
[2017-11-29] MEDS: FUROSEMIDE 20 MG TABLET PO SCH (18:10)
[2017-11-29] MEDS ORDERED: ACETAMINOPHEN 325 MG TABLET PO PRN (18:30)
--- NOTE | 2017-11-29 18:49 | RADIOLOGY REPORT (SQ) ---
EXAM DESCRIPTION: NO CHG FLUORO; HIP RIGHT AP/LATERAL COMPLETED DATE/TIME: 11/29/2017 5:56 pm REASON FOR STUDY: RIGHT HIP PINNING IN OR ASSISTED W/FLUORO COMPARISON: 11/24/2017 FLUOROSCOPY TIME: 0.5 minutes 3 Images saved to PACS LIMITATIONS: None. PROCEDURE: ORIF femoral neck fracture. FINDINGS: 3 images obtained with fluoro document placement of 3 cannulated screws through the femora l neck into the femoral head. IMPRESSION: ORIF femoral neck fracture. Refer to operative note for further information. COMMENT: PQRS 6045F: Fluoroscopy time of the procedure is documented in the report. TECHNICAL DOCUMENTATION: JOB ID: [id number] [employer]- All Rights Reserved Reading location - IP/workstation name: [email or web address]
--- NOTE | 2017-11-29 18:49 | RADIOLOGY REPORT (SQ) ---
EXAM DESCRIPTION: NO CHG FLUORO; HIP RIGHT AP/LATERAL COMPLETED DATE/TIME: 11/29/2017 5:56 pm REASON FOR STUDY: RIGHT HIP PINNING IN OR ASSISTED W/FLUORO COMPARISON: 11/24/2017 FLUOROSCOPY TIME: 0.5 minutes 3 Images saved to PACS LIMITATIONS: None. PROCEDURE: ORIF femoral neck fracture. FINDINGS: 3 images obtained with fluoro document placement of 3 cannulated screws through the femora l neck into the femoral head. IMPRESSION: ORIF femoral neck fracture. Refer to operative note for further information. COMMENT: PQRS 6045F: Fluoroscopy time of the procedure is documented in the report. TECHNICAL DOCUMENTATION: JOB ID: [id number] [employer]- All Rights Reserved Reading location - IP/workstation name: [email or web address]
--- NOTE | 2017-11-29 21:03 | PDOC PROGRESS REPORT ---
Subjective Progress Note for:: 11/29/17 Subjective:: She fell and sustained a fracture of the right femoral neck, she was seen by the bedside, she underwent ORIF today Reason For Visit: HIP FX,COPD ACUTE Physical Exam Vital Signs: Temp Pulse Resp BP Pulse Ox 99.0 F 72 20 117/57 L 94 11/29/17 19:26 11/29/17 19:26 11/29/17 19:26 11/29/17 19:26 11/29/17 19:26 Intake & Output 11/28/17 11/29/17 11/30/17 06:59 06:59 06:59 Intake Total 975 600 200 Output Total 2400 2025 1205 Balance -1425 -1425 -1005 Weight 64.8 kg 63.7 kg General appearance: PRESENT: no acute distress Eye exam: PRESENT: PERRLA Respiratory exam: PRESENT: clear to auscultation ryley Cardiovascular exam: PRESENT: +S1, +S2 GI/Abdominal exam: PRESENT: soft Results Laboratory Results: 11/29/17 04:49 11/29/17 04:49 11/29/17 11/29/17 04:49 04:49 WBC 7.3 RBC 4.34 Hgb 12.6 Hct 37.7 MCV 87 MCH 29.0 MCHC 33.4 RDW 13.9 Plt Count 136 L Seg Neutrophils % 64.3 Lymphocytes % 21.4 Monocytes % 10.2 Eosinophils % 4.0 Basophils % 0.1 Absolute Neutrophils 4.7 Absolute Lymphocytes 1.6 Absolute Monocytes 0.8 Absolute Eosinophils 0.3 Absolute Basophils 0.0 Sodium 142.2 Potassium 4.0 Chloride 97 L Carbon Dioxide 37 H Anion Gap 8 BUN 20 Creatinine 0.42 L Est GFR ( Amer) > 60 Est GFR (Non-Af Amer) > 60 Glucose 81 Calcium 8.7 Impressions: Foot X-Ray 11/24/17 20:11 IMPRESSION: No acute findings. There are changes in the talus in there are foreign bodies that are unchanged from the prior study. Knee X-Ray 11/24/17 20:11 IMPRESSION: Prepatellar soft tissue swelling with no acute osseous abnormality. Chest/Abdomen CTA 11/25/17 00:45 IMPRESSION: 1. Diffuse patchy and confluent airspace opacities throughout the lungs which are more prominent than on the comparison study. These findings are compatible with bilateral pneumonia. These findings could be seen with aspiration giving dependent location. 2. Small left pleural effusion. 3. No pulmonary embolus. This exam was performed according to our departmental dose-optimization program, which includes automated exposure control, adjustment of the mA and/or kV according to patient size and/or use of iterative reconstruction technique. Fluoroscopy 11/29/17 00:00 IMPRESSION: ORIF femoral neck fracture. Refer to operative note for further information. Hip/Pelvis X-Ray 11/29/17 00:00 IMPRESSION: ORIF femoral neck fracture. Refer to operative note for further information. Chest X-Ray 11/29/17 05:00 IMPRESSION: 1 Since the prior examination dated 11/24/2017, interval resolution of the airspace disease in the lungs. Assessment & Plan - Diagnosis (1) Fracture of femoral neck, right, closed Qualifiers: Encounter type: initial encounter Qualified Code(s): S72.001A - Fracture of unspecified part of neck of right femur, initial encounter for closed fracture Is this a current diagnosis for this admission?: Yes (2) Left lower lobe pneumonia Qualifiers: Pneumonia type: due to unspecified organism Qualified Code(s): J18.1 - Lobar pneumonia, unspecified organism Is this a current diagnosis for this admission?: Yes (3) Acute exacerbation of CHF (congestive heart failure) Qualifiers: Heart failure type: unspecified Qualified Code(s): I50.9 - Heart failure, unspecified Is this a current diagnosis for this admission?: Yes - Plan Summary Plan Summary: Continue treatment
[2017-11-29] MEDS: ATORVASTATIN CALCIUM 20 MG TABLET PO SCH (21:09)
--- NOTE | 2017-11-29 22:23 | PROGRESS NOTE E ---
Progress Note NAME: MITCH ORELLANA : 1950 AGE: 67Y DATE: 11/29/2017 ROOM: 315 SUBJECTIVE: The patient is a 67-year-old female who came in with a fractured right hip and history of pneumonia and bronchial asthma exacerbation. The patient had percutaneous pinning of the right hip fracture today and tolerated it well. Denies any fever. Denies any increased cough or denies any worsening dyspnea or purulent sputum production or hemoptysis. Appeared to tolerate it well. Complained about constipation and bloating. The patient is receiving oxycodone and fentanyl for pain. OBJECTIVE: GENERAL: The patient is awake, alert, coherent, oriented x3, afebrile, not in apparent respiratory distress. VITAL SIGNS: Temperature 99 degrees Fahrenheit with a T-max of 99.5 degrees, pulse rate of 64, blood pressure is 138/57, respiratory is 16, saturation is 99% on 3 liters nasal cannula. EYES: No jaundice or pallor. EARS, NOSE, AND THROAT: No ear drainage. No nasal discharge. CHEST AND LUNGS: No wheezing, no rhonchi, no coarse crackles. CARDIOVASCULAR: S1, S2 distinct. Normal rate, regular rhythm. ABDOMEN: Flabby, positive bowel sounds, soft, nondistended, nontender. EXTREMITIES: No joint swelling, no cellulitis. LABORATORY DATA: CBC done today showed a white count of 7.3, hemoglobin 12.6, hematocrit 37.7, platelet count is 136,000. Chemistry done today showed sodium 142, potassium 4, chloride 97, CO2 is 37, BUN is 20, creatinine is 0.42, glucose is 81, and calcium is 8.7. ASSESSMENT: 1. PNEUMONIA. Appeared to be improving clinically. Not coughing any yellow-green phlegm. 2. BRONCHIAL ASTHMA IN ACUTE EXACERBATION. Currently stable and not any current bronchospasm. 3. RIGHT FEMORAL FRACTURE, STATUS POST PERCUTANEOUS PINNING TODAY. PLAN/RECOMMENDATION: 1. Consider tapering off IV Solu-Medrol or discontinue tomorrow. 2. Continue Advair 250 DiskHaler 1 puff b.i.d. 3. Continue albuterol inhaler as needed. 4. May change to oral Levaquin on hospital discharge. 5. Recommend pulmonary clinic follow up in about 3 weeks following her scheduled discharged. DICTATING PHYSICIAN: ALPA GARCIA MD,ANNETTE,MPH [id number] PHY#: [id number] ID: [id number] JOB#: [id number] ACCT: [id number] cc: > MTDD
[2017-11-30] MEDS: RINGERS SOLUTION,LACTATED 1,000 ML IV PRN ×2 (04:41→12:24)
[2017-11-30 05:14] LABS: HEMATOCRIT 33.4 % (36.0-47.0); HEMOGLOBIN 11.3 g/dL (12.0-15.5); MEAN CORPUSCULAR HEMOGLOBIN 29.4 pg (27.0-33.4); MEAN CORPUSCULAR HGB CONC 33.9 g/dL (32.0-36.0); MEAN CORPUSCULAR VOLUME 87 fl (80-97); PLATELET COUNT 139 10^3/uL (150-450); RED BLOOD COUNT 3.85 10^6/uL (3.72-5.28); RED CELL DISTRIBUTION WIDTH 14.3 % (11.5-14.0); WHITE BLOOD COUNT 9.2 10^3/uL (4.0-10.5)
[2017-11-30] MEDS: OXYCODONE-ACETAMINOPHEN 5-325 MG TABLET PO PRN ×2 (05:36→21:58)
[2017-11-30 05:46] LABS: ANION GAP 8 (5-19); BLOOD UREA NITROGEN 12 mg/dL (7-20); CALCIUM 8.4 mg/dL (8.4-10.2); CARBON DIOXIDE 36 mmol/L (22-30); CHLORIDE 97 mmol/L (98-107); GLUCOSE 83 mg/dL (75-110); POTASSIUM 4.3 mmol/L (3.6-5.0); SODIUM 140.6 mmol/L (137-145)
--- NOTE | 2017-11-30 07:13 | PDOC PROGRESS REPORT ---
Subjective Progress Note for:: 11/30/17 Reason For Visit: HIP FX,COPD ACUTE 67-year-old white female postop day 1 from percutaneous pinning of her right femoral neck fracture. Patient with an uneventful postoperative course. She denies pain this morning. Physical Exam Vital Signs: Temp Pulse Resp BP Pulse Ox 36.7 C 65 20 132/54 H 99 11/30/17 03:54 11/30/17 03:54 11/30/17 03:54 11/30/17 03:54 11/30/17 03:54 Intake & Output 11/29/17 11/30/17 12/01/17 06:59 06:59 06:59 Intake Total 600 2640 Output Total 2024 2735 Balance -1425 -95 Weight 63.7 kg 65.2 kg General appearance: PRESENT: no acute distress Head exam: PRESENT: normocephalic Respiratory exam: PRESENT: unlabored Cardiovascular exam: PRESENT: RRR Pulses: PRESENT: +1 pedal pulses bilateral Vascular exam: PRESENT: normal capillary refill GI/Abdominal exam: PRESENT: soft Rectal exam: PRESENT: deferred Extremities exam: PRESENT: other - Right lower extremity dressing with some drainage and this is been reinforced. Leg lengths are equal. Passive range of motion is pain-free. Distal neurovascular examination is intact. Neurological exam: PRESENT: alert, awake, oriented to person, oriented to place , oriented to time, oriented to situation. ABSENT: motor sensory deficit Psychiatric exam: PRESENT: appropriate affect, normal mood. ABSENT: homicidal ideation, suicidal ideation Skin exam: PRESENT: dry, intact, warm. ABSENT: cyanosis, rash Results Laboratory Results: 11/30/17 04:26 11/30/17 04:26 11/30/17 11/30/17 04:26 04:26 WBC 9.2 RBC 3.85 Hgb 11.3 L Hct 33.4 L MCV 87 MCH 29.4 MCHC 33.9 RDW 14.3 H Plt Count 139 L Sodium 140.6 Potassium 4.3 Chloride 97 L Carbon Dioxide 36 H Anion Gap 8 BUN 12 Creatinine 0.49 L Est GFR ( Amer) > 60 Est GFR (Non-Af Amer) > 60 Glucose 83 Calcium 8.4 11/25/17 03:19 Blood Blood Culture - Final NO GROWTH IN 5 DAYS 11/25/17 00:37 Blood Blood Culture - Final NO GROWTH IN 5 DAYS Impressions: Foot X-Ray 11/24/17 20:11 IMPRESSION: No acute findings. There are changes in the talus in there are foreign bodies that are unchanged from the prior study. Knee X-Ray 11/24/17 20:11 IMPRESSION: Prepatellar soft tissue swelling with no acute osseous abnormality. Chest/Abdomen CTA 11/25/17 00:45 IMPRESSION: 1. Diffuse patchy and confluent airspace opacities throughout the lungs which are more prominent than on the comparison study. These findings are compatible with bilateral pneumonia. These findings could be seen with aspiration giving dependent location. 2. Small left pleural effusion. 3. No pulmonary embolus. This exam was performed according to our departmental dose-optimization program, which includes automated exposure control, adjustment of the mA and/or kV according to patient size and/or use of iterative reconstruction technique. Fluoroscopy 11/29/17 00:00 IMPRESSION: ORIF femoral neck fracture. Refer to operative note for further information. Hip/Pelvis X-Ray 11/29/17 00:00 IMPRESSION: ORIF femoral neck fracture. Refer to operative note for further information. Chest X-Ray 11/29/17 05:00 IMPRESSION: 1 Since the prior examination dated 11/24/2017, interval resolution of the airspace disease in the lungs. Status: Imported from PACS Assessment & Plan - Diagnosis (1) Fracture of femoral neck, right, closed Qualifiers: Encounter type: initial encounter Qualified Code(s): S72.001A - Fracture of unspecified part of neck of right femur, initial encounter for closed fracture Is this a current diagnosis for this admission?: Yes Plan: Mobilized with physical therapy touchdown weightbearing restriction of the right lower extremity - Time Time Spent with patient: 15-24 minutes Anticipated discharge: SNF Within: Other
[2017-11-30] MEDS: METHYLPREDNISOLONE INJ 40 MG/1 ML SDV IV SCH (10:49)
[2017-11-30] MEDS: FAMOTIDINE INJ/PF 20 MG/2 ML SDV IV SCH ×2 (10:51→22:03)
[2017-11-30] MEDS: DOCUSATE SODIUM 100 MG CAPSULE PO SCH ×2 (10:52→17:25)
[2017-11-30] MEDS: FUROSEMIDE 20 MG TABLET PO SCH (10:52)
[2017-11-30] MEDS: POLYETHYLENE GLYCOL 3350 POWDER 17 GM/1 PACKET PO SCH (10:53)
[2017-11-30] MEDS: TIOTROPIUM BROMIDE DPI 5 CAP/KIT (18 MCG/CAP) IH SCH (10:54)
[2017-11-30] MEDS: FLUTICASONE/SALMETEROL DISKUS 250-50 MCG/DOSE IH SCH ×2 (10:55→22:02)
[2017-11-30] MEDS: ENOXAPARIN SODIUM INJ 40 MG/0.4 ML DISP.SYRIN SUBCUT SCH (10:56)
[2017-11-30] MEDS: METOPROLOL SUCCINATE 50 MG TAB.SR.24H PO SCH (12:23)
[2017-11-30] MEDS: ESCITALOPRAM OXALATE 10 MG TABLET PO SCH (12:23)
[2017-11-30] MEDS: LOSARTAN POTASSIUM 50 MG TABLET PO SCH (12:23)
[2017-11-30] MEDS: ASPIRIN 81 MG TABLET, ENT COATED PO SCH (12:23)
--- NOTE | 2017-11-30 19:49 | PDOC PROGRESS REPORT ---
Subjective Progress Note for:: 11/29/17 Subjective:: Patient complaining of right hip pain. Otherwise noted to be stable. Pt is denying any chest arm or neck discomfort. Patient denying any PND, orthopnea. Patient denied any sustained palpitations, dizziness, syncope, near syncope. Patient denying any fever chills. Patient denying any other significant discomfort. Patient is maintaining sinus rhythm. Review of systems: Rest review of systems negative. Medications: Medications have been reviewed. Reason For Visit: HIP FX,COPD ACUTE Physical Exam Vital Signs: Temp Pulse Resp BP Pulse Ox 99.0 F 64 16 128/57 H 99 11/29/17 17:34 11/29/17 17:34 11/29/17 17:34 11/29/17 17:34 11/29/17 17:34 Intake & Output 11/28/17 11/29/17 11/30/17 06:59 06:59 06:59 Intake Total 975 600 200 Output Total 2400 2025 1205 Balance -1425 -1425 -1005 Weight 64.8 kg 63.7 kg Exam: GENERAL: well-nourished and in no acute distress. Alert and oriented x3 HEAD: Atraumatic, normocephalic. EYES: Pupils equal round and reactive to light, extraocular movements intact, sclera anicteric, conjunctiva are normal. ENT: TMs normal, nares patent, oropharynx clear without exudates. Moist mucous membranes. No oral ulcerations or bleeding gums noted NECK: supple without lymphadenopathy. Trachea is central. No cervical or axillary lymphadenopathy noted. Carotids are 2+, JVD WNL LUNGS: Respiration seems nonlabored, no significant accessory muscle action noted. Bibasilar fine crackles noted.. No wheezes rales or rhonchi noted. No significant dullness noted on percussion. CHEST: Palpation of the chest wall shows no significant chest wall tenderness. HEART: [employer], No PSH, 1/6 RANJIT aortic area, 1/6 willis systolic murmur mitral area, no rubs, no gallops. ABDOMEN: Soft, no significant tenderness appreciated, normoactive bowel sounds. No guarding, no rebound. No rigidity noted . No masses appreciated. EXTREMITIES: Pedal pulses are 1-2+, no calf tenderness noted. No clubbing or cyanosis. negative pedal edema noted NEUROLOGICAL: Focused neurological exam showed no significant neurologic deficit. Normal speech, no focal weakness appreciated. PSYCH: Normal mood, normal affect. Judgment and insight within normal limits. SKIN: No significant ecchymosis, skin is noted to be warm. MUSCULOSKELETAL EXAM: No significant acute joint swelling noted. 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 Results Laboratory Results: 11/29/17 04:49 11/29/17 04:49 11/29/17 11/29/17 04:49 04:49 WBC 7.3 RBC 4.34 Hgb 12.6 Hct 37.7 MCV 87 MCH 29.0 MCHC 33.4 RDW 13.9 Plt Count 136 L Seg Neutrophils % 64.3 Lymphocytes % 21.4 Monocytes % 10.2 Eosinophils % 4.0 Basophils % 0.1 Absolute Neutrophils 4.7 Absolute Lymphocytes 1.6 Absolute Monocytes 0.8 Absolute Eosinophils 0.3 Absolute Basophils 0.0 Sodium 142.2 Potassium 4.0 Chloride 97 L Carbon Dioxide 37 H Anion Gap 8 BUN 20 Creatinine 0.42 L Est GFR ( Amer) > 60 Est GFR (Non-Af Amer) > 60 Glucose 81 Calcium 8.7 EKG Comments: Telemetry shows sinus rhythm without any sustained tachycardia or bradycardia. Impressions: Foot X-Ray 11/24/17 20:11 IMPRESSION: No acute findings. There are changes in the talus in there are foreign bodies that are unchanged from the prior study. Knee X-Ray 11/24/17 20:11 IMPRESSION: Prepatellar soft tissue swelling with no acute osseous abnormality. Chest/Abdomen CTA 11/25/17 00:45 IMPRESSION: 1. Diffuse patchy and confluent airspace opacities throughout the lungs which are more prominent than on the comparison study. These findings are compatible with bilateral pneumonia. These findings could be seen with aspiration giving dependent location. 2. Small left pleural effusion. 3. No pulmonary embolus. This exam was performed according to our departmental dose-optimization program, which includes automated exposure control, adjustment of the mA and/or kV according to patient size and/or use of iterative reconstruction technique. Fluoroscopy 11/29/17 00:00 IMPRESSION: ORIF femoral neck fracture. Refer to operative note for further information. Hip/Pelvis X-Ray 11/29/17 00:00 IMPRESSION: ORIF femoral neck fracture. Refer to operative note for further information. Chest X-Ray 11/29/17 05:00 IMPRESSION: 1 Since the prior examination dated 11/24/2017, interval resolution of the airspace disease in the lungs. Assessment & Plan - Diagnosis (1) Bilateral pneumonia Qualifiers: Pneumonia type: due to unspecified organism Lung location: unspecified part of lung Qualified Code(s): J18.9 - Pneumonia, unspecified organism Is this a current diagnosis for this admission?: Yes (2) Chronic obstructive pulmonary disease Qualifiers: COPD type: unspecified COPD Qualified Code(s): J44.9 - Chronic obstructive pulmonary disease, unspecified Is this a current diagnosis for this admission?: Yes (3) Hypertension Qualifiers: Hypertension type: essential hypertension Qualified Code(s): I10 - Essential (primary) hypertension Is this a current diagnosis for this admission?: Yes (4) Preoperative cardiovascular examination Is this a current diagnosis for this admission?: Yes (5) Fracture of femoral neck, right, closed Qualifiers: Encounter type: initial encounter Qualified Code(s): S72.001A - Fracture of unspecified part of neck of right femur, initial encounter for closed fracture Is this a current diagnosis for this admission?: Yes - Notes Notes: Patient cleared for surgery. She was seen on the morning and was noted to be stable to proceed with surgery. This was related to the nurse and the patient. EKG is no significant ischemic changes. BNP normal. EKGs has been normal. Bilateral pneumonia: Continue with antibiotic therapy. COPD: Continue with bronchodilator and steroid as previously prescribed. Hypertension: Blood pressure goal is 140/90. Reasonably well controlled. Preop cardiovascular examination: Cardiac munson patient is cleared. Watch for any pulmonary deterioration. Right hip fracture: Patient being managed by Dr. Rodriguez. Would recommend DVT prophylaxis, adequate pain control, pulmonary toilet. We will be happy to take care of any cardiac problem as it arises during perioperative.. - Time Time with patient: 15-25 minutes - More than 50% of the time spent coordinating care, discussing management plans with involved caregivers. Management plans discussed with involved personnels. Medical decision making was of moderate to high complexity, patient's has multiple comorbidities. Medications reviewed and adjusted accordingly: Yes
--- NOTE | 2017-11-30 19:51 | PDOC PROGRESS REPORT ---
Subjective Progress Note for:: 11/30/17 Subjective:: Patient seen postop day 1. Doing well postop. Sitting down at bedside chair. Physical therapy to work with her. Patient is maintaining sinus rhythm. Review of systems: Rest review of systems negative. Medications: Medications have been reviewed. Reason For Visit: HIP FX,COPD ACUTE Physical Exam Vital Signs: Temp Pulse Resp BP Pulse Ox 99.7 F 84 22 H 113/48 L 95 11/30/17 15:05 11/30/17 15:05 11/30/17 15:05 11/30/17 15:05 11/30/17 15:05 Intake & Output 11/29/17 11/30/17 12/01/17 06:59 06:59 06:59 Intake Total 600 2640 2004 Output Total 2024 2735 825 Balance -1425 -95 1180 Weight 63.7 kg 65.2 kg Exam: GENERAL: well-nourished and in no acute distress. Alert and oriented x3 HEAD: Atraumatic, normocephalic. EYES: Pupils equal round and reactive to light, extraocular movements intact, sclera anicteric, conjunctiva are normal. ENT: TMs normal, nares patent, oropharynx clear without exudates. Moist mucous membranes. No oral ulcerations or bleeding gums noted NECK: supple without lymphadenopathy. Trachea is central. No cervical or axillary lymphadenopathy noted. Carotids are 2+, JVD WNL LUNGS: Respiration seems nonlabored, no significant accessory muscle action noted. Bibasilar fine crackles are noted.. No wheezes rales or rhonchi noted. No significant dullness noted on percussion. CHEST: Palpation of the chest wall shows no significant chest wall tenderness. HEART: [employer], No PSH, 1/6 RANJIT aortic area, 1/6 willis systolic murmur mitral area, no rubs, no gallops. ABDOMEN: Soft, no significant tenderness appreciated, normoactive bowel sounds. No guarding, no rebound. No rigidity noted . No masses appreciated. EXTREMITIES: Pedal pulses are 1-2+, no calf tenderness noted. No clubbing or cyanosis. negative pedal edema noted NEUROLOGICAL: Focused neurological exam showed no significant neurologic deficit. Normal speech, no focal weakness appreciated. PSYCH: Normal mood, normal affect. Judgment and insight within normal limits. SKIN: No significant ecchymosis, skin is noted to be warm. MUSCULOSKELETAL EXAM: No significant acute joint swelling noted. Status post right hip surgery. Polio affliction of right lower extremity. Results Laboratory Results: 11/30/17 04:26 11/30/17 04:26 11/30/17 11/30/17 04:26 04:26 WBC 9.2 RBC 3.85 Hgb 11.3 L Hct 33.4 L MCV 87 MCH 29.4 MCHC 33.9 RDW 14.3 H Plt Count 139 L Sodium 140.6 Potassium 4.3 Chloride 97 L Carbon Dioxide 36 H Anion Gap 8 BUN 12 Creatinine 0.49 L Est GFR ( Amer) > 60 Est GFR (Non-Af Amer) > 60 Glucose 83 Calcium 8.4 11/25/17 03:19 Blood Blood Culture - Final NO GROWTH IN 5 DAYS 11/25/17 00:37 Blood Blood Culture - Final NO GROWTH IN 5 DAYS EKG Comments: Telemetry shows sinus rhythm without any sustained tachycardia or bradycardia. Impressions: Foot X-Ray 11/24/17 20:11 IMPRESSION: No acute findings. There are changes in the talus in there are foreign bodies that are unchanged from the prior study. Knee X-Ray 11/24/17 20:11 IMPRESSION: Prepatellar soft tissue swelling with no acute osseous abnormality. Chest/Abdomen CTA 11/25/17 00:45 IMPRESSION: 1. Diffuse patchy and confluent airspace opacities throughout the lungs which are more prominent than on the comparison study. These findings are compatible with bilateral pneumonia. These findings could be seen with aspiration giving dependent location. 2. Small left pleural effusion. 3. No pulmonary embolus. This exam was performed according to our departmental dose-optimization program, which includes automated exposure control, adjustment of the mA and/or kV according to patient size and/or use of iterative reconstruction technique. Fluoroscopy 11/29/17 00:00 IMPRESSION: ORIF femoral neck fracture. Refer to operative note for further information. Hip/Pelvis X-Ray 11/29/17 00:00 IMPRESSION: ORIF femoral neck fracture. Refer to operative note for further information. Chest X-Ray 11/29/17 05:00 IMPRESSION: 1 Since the prior examination dated 11/24/2017, interval resolution of the airspace disease in the lungs. Assessment & Plan - Diagnosis (1) Bilateral pneumonia Qualifiers: Pneumonia type: due to unspecified organism Lung location: unspecified part of lung Qualified Code(s): J18.9 - Pneumonia, unspecified organism Is this a current diagnosis for this admission?: Yes (2) Chronic obstructive pulmonary disease Qualifiers: COPD type: unspecified COPD Qualified Code(s): J44.9 - Chronic obstructive pulmonary disease, unspecified Is this a current diagnosis for this admission?: Yes (3) Hypertension Qualifiers: Hypertension type: essential hypertension Qualified Code(s): I10 - Essential (primary) hypertension Is this a current diagnosis for this admission?: Yes (4) Preoperative cardiovascular examination Is this a current diagnosis for this admission?: Yes (5) Fracture of femoral neck, right, closed Qualifiers: Encounter type: initial encounter Qualified Code(s): S72.001A - Fracture of unspecified part of neck of right femur, initial encounter for closed fracture Is this a current diagnosis for this admission?: Yes - Notes Notes: Patient did well with her right hip surgery. Bilateral pneumonia: Continue with antibiotic therapy. COPD: Continue with bronchodilator and steroid as previously prescribed. Hypertension: Blood pressure goal is 140/90. Reasonably well controlled. Preop cardiovascular examination: Patient had surgery and did well. Right hip fracture: Patient being managed by Dr. Rodriguez. Patient status post surgery. Would recommend DVT prophylaxis, adequate pain control, pulmonary toilet. We will be happy to take care of any cardiac problem as it arises during postop. Please call if needed. - Time Time with patient: 15-25 minutes - More than 50% of the time spent coordinating care, discussing management plans with involved caregivers. Management plans discussed with involved personnels. Medical decision making was of moderate to high complexity, patient's has multiple comorbidities. Medications reviewed and adjusted accordingly: Yes
--- NOTE | 2017-11-30 21:34 | PDOC PROGRESS REPORT ---
Subjective Progress Note for:: 11/30/17 Subjective:: Patient was seen by the bedside, she was admitted for the management of fracture of the neck of the right femur, status post ORIF she also had pneumonia associated with COPD, treated with IV antibiotic, Solu-Medrol and bronchodilators. She will be discharged to long-term for rehabilitation tomorrow Reason For Visit: HIP FX,COPD ACUTE Physical Exam Vital Signs: Temp Pulse Resp BP Pulse Ox 99.5 F 83 18 150/62 H 100 11/30/17 20:11 11/30/17 20:11 11/30/17 20:11 11/30/17 20:11 11/30/17 20:11 Intake & Output 11/29/17 11/30/17 12/01/17 06:59 06:59 06:59 Intake Total 600 2640 2855 Output Total 2024 2735 825 Balance -1425 -95 2029 Weight 63.7 kg 65.2 kg General appearance: PRESENT: no acute distress Eye exam: PRESENT: PERRLA Respiratory exam: PRESENT: clear to auscultation ryley Cardiovascular exam: PRESENT: +S1, +S2 GI/Abdominal exam: PRESENT: soft Neurological exam: PRESENT: alert Results Laboratory Results: 11/30/17 04:26 11/30/17 04:26 11/30/17 11/30/17 04:26 04:26 WBC 9.2 RBC 3.85 Hgb 11.3 L Hct 33.4 L MCV 87 MCH 29.4 MCHC 33.9 RDW 14.3 H Plt Count 139 L Sodium 140.6 Potassium 4.3 Chloride 97 L Carbon Dioxide 36 H Anion Gap 8 BUN 12 Creatinine 0.49 L Est GFR ( Amer) > 60 Est GFR (Non-Af Amer) > 60 Glucose 83 Calcium 8.4 11/25/17 03:19 Blood Blood Culture - Final NO GROWTH IN 5 DAYS 11/25/17 00:37 Blood Blood Culture - Final NO GROWTH IN 5 DAYS Impressions: Foot X-Ray 11/24/17 20:11 IMPRESSION: No acute findings. There are changes in the talus in there are foreign bodies that are unchanged from the prior study. Knee X-Ray 11/24/17 20:11 IMPRESSION: Prepatellar soft tissue swelling with no acute osseous abnormality. Chest/Abdomen CTA 11/25/17 00:45 IMPRESSION: 1. Diffuse patchy and confluent airspace opacities throughout the lungs which are more prominent than on the comparison study. These findings are compatible with bilateral pneumonia. These findings could be seen with aspiration giving dependent location. 2. Small left pleural effusion. 3. No pulmonary embolus. This exam was performed according to our departmental dose-optimization program, which includes automated exposure control, adjustment of the mA and/or kV according to patient size and/or use of iterative reconstruction technique. Fluoroscopy 11/29/17 00:00 IMPRESSION: ORIF femoral neck fracture. Refer to operative note for further information. Hip/Pelvis X-Ray 11/29/17 00:00 IMPRESSION: ORIF femoral neck fracture. Refer to operative note for further information. Chest X-Ray 11/29/17 05:00 IMPRESSION: 1 Since the prior examination dated 11/24/2017, interval resolution of the airspace disease in the lungs. Assessment & Plan - Diagnosis (1) Fracture of femoral neck, right, closed Qualifiers: Encounter type: initial encounter Qualified Code(s): S72.001A - Fracture of unspecified part of neck of right femur, initial encounter for closed fracture Is this a current diagnosis for this admission?: Yes (2) Left lower lobe pneumonia Qualifiers: Pneumonia type: due to unspecified organism Qualified Code(s): J18.1 - Lobar pneumonia, unspecified organism Is this a current diagnosis for this admission?: Yes (3) Acute exacerbation of CHF (congestive heart failure) Qualifiers: Heart failure type: unspecified Qualified Code(s): I50.9 - Heart failure, unspecified Is this a current diagnosis for this admission?: Yes
[2017-11-30] MEDS: ATORVASTATIN CALCIUM 20 MG TABLET PO SCH (21:58)
[2017-12-01] MEDS: METOPROLOL SUCCINATE 50 MG TAB.SR.24H PO SCH (09:43)
[2017-12-01] MEDS: FUROSEMIDE 20 MG TABLET PO SCH (09:44)
[2017-12-01] MEDS: ASPIRIN 81 MG TABLET, ENT COATED PO SCH (09:44)
[2017-12-01] MEDS: LOSARTAN POTASSIUM 50 MG TABLET PO SCH (09:44)
[2017-12-01] MEDS: ESCITALOPRAM OXALATE 10 MG TABLET PO SCH (09:44)
[2017-12-01] MEDS: DOCUSATE SODIUM 100 MG CAPSULE PO SCH ×2 (09:44→18:37)
[2017-12-01] MEDS: POLYETHYLENE GLYCOL 3350 POWDER 17 GM/1 PACKET PO SCH (09:45)
[2017-12-01] MEDS: METHYLPREDNISOLONE INJ 40 MG/1 ML SDV IV SCH (09:46)
[2017-12-01] MEDS: FAMOTIDINE INJ/PF 20 MG/2 ML SDV IV SCH ×2 (09:47→21:05)
[2017-12-01] MEDS: ENOXAPARIN SODIUM INJ 40 MG/0.4 ML DISP.SYRIN SUBCUT SCH (09:53)
[2017-12-01] MEDS ORDERED: LEVOFLOXACIN 750 MG TABLET PO SCH (10:00)
[2017-12-01] MEDS: TIOTROPIUM BROMIDE DPI 5 CAP/KIT (18 MCG/CAP) IH SCH (14:00)
[2017-12-01] MEDS: FLUTICASONE/SALMETEROL DISKUS 250-50 MCG/DOSE IH SCH ×2 (14:01→21:04)
--- NOTE | 2017-12-01 15:31 | PDOC TRANSFER SUMMARY ---
General - Admit/Disc Date/PCP Admission Date/Primary Care Provider: 11/25/17 00:19 KIMI CANELA MD Discharge Date: 12/01/17 - Discharge Diagnosis (1) Fracture of femoral neck, right, closed Is this a current diagnosis for this admission?: Yes (2) Left lower lobe pneumonia Is this a current diagnosis for this admission?: Yes (3) COPD with acute exacerbation Is this a current diagnosis for this admission?: Yes (4) Scoliosis (and kyphoscoliosis), idiopathic Is this a current diagnosis for this admission?: Yes (5) Post-polio syndrome Is this a current diagnosis for this admission?: Yes - Additional Information Resuscitation Status: Do Not Resuscitate Discharge Diet: Regular Prescriptions: Levofloxacin [Levaquin 750 mg Tablet] 750 mg PO Q2D@1000 #10 tablet Rivaroxaban [Xarelto 10 mg Tablet] 10 mg PO DAILY #10 tablet Home Medications: Docusate Sodium [Colace 100 mg Capsule] 100 mg PO DAILY 11/25/17 Escitalopram Oxalate [Lexapro] 5 mg PO DAILY 11/25/17 Losartan/Hydrochlorothiazide [Hyzaar 50-12.5 Tablet] 1 tab PO DAILY 11/25/17 Metoprolol Succinate [Toprol XL 100 mg Tablet] 100 mg PO DAILY 11/25/17 Atorvastatin Calcium [Lipitor 20 mg Tablet] 20 mg PO QHS tablet 12/01/17 Fluticasone/Salmeterol [Advair 250-50 Diskus 14 Dose/Diskus] 1 inh IH Q12 inhaler 12/01/17 Levofloxacin [Levaquin 750 mg Tablet] 750 mg PO Q2D@1000 #10 tablet 12/01/17 Polyethylene Glycol 3350 [Miralax Powder 17 gm/Packet] 17 gm PO DAILY powd.pack 12/01/17 Rivaroxaban [Xarelto 10 mg Tablet] 10 mg PO DAILY #10 tablet 12/01/17 Tiotropium [place] [Spiriva Handihaler 5 Cap/Kit (18 Mcg/Cap)] 1 cap IH DAILY kit 12/01/17 History of Present Illness Admission Date/PCP: 11/25/17 00:19 KIMI CANELA MD History of Present Illness: MITCH ORELLANA is a 67 year old female, she was admitted for the management of fracture of the neck of the right femur, she also had COPD exacerbation associated with pneumonia. Hospital Course Hospital Course: She was seen in consultation by orthopedic, she underwent ORIF of the neck of the right femur. On admission CTA chest was done, it demonstrated diffuse patchy and confluent airspace opacities throughout the lung prominent from prior study finding was compatible with bilateral pneumonia. There was a concern she may have CHF 2D echo was done which was normal. Prior to this admission patient follows with pulmonary, she was referred to hospice by pulmonary, patient left expectancy is more than 6 months since been in hospice. Anyhow she is presently not in hospice. She also was treated with IV antibiotic, Solu-Medrol for the bilateral pneumonia on chest x-ray. Physical Exam Vital Signs: Temp Pulse Resp BP Pulse Ox 98.8 F 81 20 104/57 L 97 12/01/17 12:02 12/01/17 14:00 12/01/17 12:02 12/01/17 12:02 12/01/17 12:02 Intake & Output 11/30/17 12/01/17 12/02/17 06:59 06:59 06:59 Intake Total 2640 2855 711 Output Total 2735 1000 200 Balance -95 1855 511 Weight 65.2 kg 65 kg General appearance: PRESENT: no acute distress Eye exam: PRESENT: PERRLA Respiratory exam: PRESENT: decreased breath sounds Cardiovascular exam: PRESENT: +S1, +S2 GI/Abdominal exam: PRESENT: soft Neurological exam: PRESENT: alert Results Laboratory Results: 11/30/17 04:26 11/30/17 04:26 Impressions: Foot X-Ray 11/24/17 20:11 IMPRESSION: No acute findings. There are changes in the talus in there are foreign bodies that are unchanged from the prior study. Knee X-Ray 11/24/17 20:11 IMPRESSION: Prepatellar soft tissue swelling with no acute osseous abnormality. Chest/Abdomen CTA 11/25/17 00:45 IMPRESSION: 1. Diffuse patchy and confluent airspace opacities throughout the lungs which are more prominent than on the comparison study. These findings are compatible with bilateral pneumonia. These findings could be seen with aspiration giving dependent location. 2. Small left pleural effusion. 3. No pulmonary embolus. This exam was performed according to our departmental dose-optimization program, which includes automated exposure control, adjustment of the mA and/or kV according to patient size and/or use of iterative reconstruction technique. Fluoroscopy 11/29/17 00:00 IMPRESSION: ORIF femoral neck fracture. Refer to operative note for further information. Hip/Pelvis X-Ray 11/29/17 00:00 IMPRESSION: ORIF femoral neck fracture. Refer to operative note for further information. Chest X-Ray 11/29/17 05:00 IMPRESSION: 1 Since the prior examination dated 11/24/2017, interval resolution of the airspace disease in the lungs. Qualifiers - * PATIENT BEING DISCHARGED WITH ANY OF THE FOLLOWING DIAGNOSIS: No
--- NOTE | 2017-12-01 18:31 | PDOC PROGRESS REPORT ---
Subjective Progress Note for:: 12/01/17 Subjective:: Patient seen postop day 2. Doing well postop. Sitting down at bedside chair. Physical therapy to work with her. Patient has done well therefore will sign off. Please reconsult if needed. Patient is maintaining sinus rhythm. Review of systems: Rest review of systems negative. Medications: Medications have been reviewed. Reason For Visit: HIP FX,COPD ACUTE Physical Exam Vital Signs: Temp Pulse Resp BP Pulse Ox 99.4 F 89 20 116/55 L 96 12/01/17 16:00 12/01/17 16:00 12/01/17 16:00 12/01/17 16:00 12/01/17 16:00 Intake & Output 11/30/17 12/01/17 12/02/17 06:59 06:59 06:59 Intake Total 2640 2855 1185 Output Total 2735 1000 800 Balance -95 1855 385 Weight 65.2 kg 65 kg Exam: GENERAL: well-nourished and in no acute distress. Alert and oriented x3 HEAD: Atraumatic, normocephalic. EYES: Pupils equal round and reactive to light, extraocular movements intact, sclera anicteric, conjunctiva are normal. ENT: TMs normal, nares patent, oropharynx clear without exudates. Moist mucous membranes. No oral ulcerations or bleeding gums noted NECK: supple without lymphadenopathy. Trachea is central. No cervical or axillary lymphadenopathy noted. Carotids are 2+, JVD WNL LUNGS: Respiration seems nonlabored, no significant accessory muscle action noted. Breath sounds clear to auscultation bilaterally and equal noted. No wheezes rales or rhonchi noted. No significant dullness noted on percussion. CHEST: Palpation of the chest wall shows no significant chest wall tenderness. HEART: [place], No PSH, 1/6 RANJIT aortic area, 1/6 willis systolic murmur mitral area, no rubs, no gallops. ABDOMEN: Soft, no significant tenderness appreciated, normoactive bowel sounds. No guarding, no rebound. No rigidity noted . No masses appreciated. EXTREMITIES: Pedal pulses are 1-2+, no calf tenderness noted. No clubbing or cyanosis. negative pedal edema noted NEUROLOGICAL: Focused neurological exam showed no significant neurologic deficit. Normal speech, no focal weakness appreciated. PSYCH: Normal mood, normal affect. Judgment and insight within normal limits. SKIN: No significant ecchymosis, skin is noted to be warm. MUSCULOSKELETAL EXAM: No significant acute joint swelling noted. Postsurgical changes noted of right hip surgery. Patient has polio flexion of the right lower extremity with loss of muscle mass. Results Laboratory Results: 11/30/17 04:26 11/30/17 04:26 Impressions: Foot X-Ray 11/24/17 20:11 IMPRESSION: No acute findings. There are changes in the talus in there are foreign bodies that are unchanged from the prior study. Knee X-Ray 11/24/17 20:11 IMPRESSION: Prepatellar soft tissue swelling with no acute osseous abnormality. Chest/Abdomen CTA 11/25/17 00:45 IMPRESSION: 1. Diffuse patchy and confluent airspace opacities throughout the lungs which are more prominent than on the comparison study. These findings are compatible with bilateral pneumonia. These findings could be seen with aspiration giving dependent location. 2. Small left pleural effusion. 3. No pulmonary embolus. This exam was performed according to our departmental dose-optimization program, which includes automated exposure control, adjustment of the mA and/or kV according to patient size and/or use of iterative reconstruction technique. Fluoroscopy 11/29/17 00:00 IMPRESSION: ORIF femoral neck fracture. Refer to operative note for further information. Hip/Pelvis X-Ray 11/29/17 00:00 IMPRESSION: ORIF femoral neck fracture. Refer to operative note for further information. Chest X-Ray 11/29/17 05:00 IMPRESSION: 1 Since the prior examination dated 11/24/2017, interval resolution of the airspace disease in the lungs. Assessment & Plan - Diagnosis (1) Bilateral pneumonia Qualifiers: Pneumonia type: due to unspecified organism Lung location: unspecified part of lung Qualified Code(s): J18.9 - Pneumonia, unspecified organism Is this a current diagnosis for this admission?: Yes (2) Chronic obstructive pulmonary disease Qualifiers: COPD type: unspecified COPD Qualified Code(s): J44.9 - Chronic obstructive pulmonary disease, unspecified Is this a current diagnosis for this admission?: Yes (3) Hypertension Qualifiers: Hypertension type: essential hypertension Qualified Code(s): I10 - Essential (primary) hypertension Is this a current diagnosis for this admission?: Yes (4) Preoperative cardiovascular examination Is this a current diagnosis for this admission?: Yes (5) Fracture of femoral neck, right, closed Qualifiers: Encounter type: initial encounter Qualified Code(s): S72.001A - Fracture of unspecified part of neck of right femur, initial encounter for closed fracture Is this a current diagnosis for this admission?: Yes - Notes Notes: Patient did well with her right hip surgery. Patient seen postop day 2. Bilateral pneumonia: Continue with antibiotic therapy. Improved COPD: Continue with bronchodilator and steroid as previously prescribed. Hypertension: Blood pressure goal is 140/90. Reasonably well controlled. Preop cardiovascular examination: Patient had surgery and did well. Right hip fracture: Patient being managed by Dr. Rodriguez. Patient status post surgery. Patient has done well. Will sign off. Please reconsult if needed. Would recommend continued DVT prophylaxis, adequate pain control, pulmonary toilet. - Time Time with patient: 15-25 minutes - More than 50% of the time spent coordinating care, discussing management plans with involved caregivers. Management plans discussed with involved personnels. Medical decision making was of moderate to high complexity, patient's has multiple comorbidities. Medications reviewed and adjusted accordingly: Yes
[2017-12-01] MEDS: ATORVASTATIN CALCIUM 20 MG TABLET PO SCH (21:05)
[2017-12-01] MEDS: OXYCODONE-ACETAMINOPHEN 5-325 MG TABLET PO PRN (22:25)
[2017-12-02] MEDS: FLUTICASONE/SALMETEROL DISKUS 250-50 MCG/DOSE IH SCH (12:00)
[2017-12-02] MEDS: TIOTROPIUM BROMIDE DPI 5 CAP/KIT (18 MCG/CAP) IH SCH (12:00)
[2017-12-02] MEDS: ESCITALOPRAM OXALATE 10 MG TABLET PO SCH (12:01)
[2017-12-02] MEDS: DOCUSATE SODIUM 100 MG CAPSULE PO SCH (12:01)
[2017-12-02] MEDS: LOSARTAN POTASSIUM 50 MG TABLET PO SCH (12:01)
[2017-12-02] MEDS: METHYLPREDNISOLONE INJ 40 MG/1 ML SDV IV SCH (12:01)
[2017-12-02] MEDS: ASPIRIN 81 MG TABLET, ENT COATED PO SCH (12:01)
[2017-12-02] MEDS: FAMOTIDINE INJ/PF 20 MG/2 ML SDV IV SCH (12:01)
[2017-12-02] MEDS: FUROSEMIDE 20 MG TABLET PO SCH (12:01)
[2017-12-02] MEDS: METOPROLOL SUCCINATE 50 MG TAB.SR.24H PO SCH (12:02)
[2017-12-02] MEDS: POLYETHYLENE GLYCOL 3350 POWDER 17 GM/1 PACKET PO SCH (12:02)
[2017-12-02] MEDS: ENOXAPARIN SODIUM INJ 40 MG/0.4 ML DISP.SYRIN SUBCUT SCH (12:02)
[2017-12-02 16:01] VITALS: BP 108/59
== END 2017-12-02 16:41 | DRG 480 ==
LOC: ER 19:28 → EH 11-25 00:19 → 3W 11-25 02:14
PROVIDERS: ADMIT Internal Medicine; ATTEND Internal Medicine
PROC: 0QH634Z Insertion of Internal Fixation Device into Right Upper Femur, Percutaneous Approach (ICD-10-PCS; principal; 2017-11-29 12:30)
DX: S72.001A Fracture of unspecified part of neck of right femur, initial encounter for closed fracture (principal); J18.9 Pneumonia, unspecified organism; J44.1 Chronic obstructive pulmonary disease with (acute) exacerbation; J44.0 Chronic obstructive pulmonary disease with (acute) lower respiratory infection; I50.9 Heart failure, unspecified; M41.9 Scoliosis, unspecified; G14 Postpolio syndrome; K59.00 Constipation, unspecified; I10 Essential (primary) hypertension; M19.90 Unspecified osteoarthritis, unspecified site; F32.9 Major depressive disorder, single episode, unspecified; Z79.82 Long term (current) use of aspirin; Z79.899 Other long term (current) drug therapy; Z66 Do not resuscitate
CPT/HCPCS: 01220; 36415; 36600; 71045; 71275; 80048; 80053; 81001; 82550; 82553; 82803; 83880; 84484; 85025; 85027; 85379; 85610; 85730; 87040; 87086; 93005; 93010; 93306; 94640; 96374; 96375; 99285; C1713; C1769; G8978-GP; G8979-GP; J0690; J0692; J1650; J1940; J1956; J2250; J2270; J2405; J2704; J2920; J2930; J3010; J3490; J7120; S0028

== ENCOUNTER 2018-01-24 21:05 | Inpatient (IN) | payer MEDICARE, MEDICAID ==
[~2018-01-24 21:05] MED LIST: ROCURONIUM BROMIDE INJ 50 MG/5 ML VIAL IV ONE
[2018-01-24] MEDS ORDERED: ALBUTEROL SULFATE 0.083% NEB 2.5 MG/3 ML AMPUL NEB ONE (21:10)
[2018-01-24] MEDS ORDERED: MAGNESIUM SULFATE/D5W 2 GM/200 ML RTUPB IV ONE (21:11)
[2018-01-24] MEDS: MAGNESIUM SULFATE/D5W 1 GM/100 ML RTUPB IV SCH ×2 (21:20→22:14)
[2018-01-24 21:37] LABS: ABSOLUTE LYMPHOCYTES (AUTO) 1.3 10^3/uL (0.5-4.7); ABSOLUTE MONOCYTES (AUTO) 0.6 10^3/uL (0.1-1.4); ABSOLUTE NEUT (AUTO) 8.9 10^3/uL (1.7-8.2); BASOPHILS % (AUTO) 0.2 % (0-2); EOSINOPHILS % (AUTO) 0.3 % (0-6); HEMATOCRIT 37.6 % (36.0-47.0); HEMOGLOBIN 12.1 g/dL (12.0-15.5); LYMPHOCYTES % (AUTO) 11.8 % (13-45); MEAN CORPUSCULAR HEMOGLOBIN 29.4 pg (27.0-33.4); MEAN CORPUSCULAR HGB CONC 32.3 g/dL (32.0-36.0); MEAN CORPUSCULAR VOLUME 91 fl (80-97); MONOCYTES % (AUTO) 5.7 % (3-13); PLATELET COUNT 218 10^3/uL (150-450); RED BLOOD COUNT 4.11 10^6/uL (3.72-5.28); RED CELL DISTRIBUTION WIDTH 14.6 % (11.5-14.0); TOTAL CELLS COUNTED % (AUTO) 100 %; WHITE BLOOD COUNT 10.9 10^3/uL (4.0-10.5)
[2018-01-24 21:45] LABS: ALANINE AMINOTRANSFERASE 46 U/L (9-52); ALBUMIN 3.9 g/dL (3.5-5.0); ALKALINE PHOSPHATASE 112 U/L (38-126); ASPARTATE AMINO TRANSFERASE 46 U/L (14-36); BILIRUBIN,DIRECT 0.2 mg/dL (0.0-0.4); BILIRUBIN,TOTAL 0.6 mg/dL (0.2-1.3); BLOOD UREA NITROGEN 15 mg/dL (7-20); CALCIUM 9.2 mg/dL (8.4-10.2); CHLORIDE 83 mmol/L (98-107); GLUCOSE 245 mg/dL (75-110); POTASSIUM 4.4 mmol/L (3.6-5.0); SODIUM 139.1 mmol/L (137-145); TOTAL PROTEIN 6.6 g/dL (6.3-8.2)
[2018-01-24] MEDS ORDERED: KETAMINE HCL INJ 500 MG/10 ML VIAL ONE (21:48)
[2018-01-24 21:59] LABS: ANION GAP 5 (5-19)
[2018-01-24 22:00] LABS: CARBON DIOXIDE 51 mmol/L (22-30)
[2018-01-24] MEDS ORDERED: PHENYLEPHRINE HCL INJ/PF 10 MG/1 ML SDV IV PRN (22:01)
[2018-01-24] MEDS ORDERED: PHENYLEPHRINE HCL INJ/PF 10 MG/1 ML SDV ONE (22:01)
[2018-01-24] MEDS ORDERED: DEXTROSE 5%-WATER 250 ML with NOREPINEPHRINE BITARTRATE 4 MG IV PRN ×2 (22:02)
[2018-01-24] MEDS ORDERED: NOREPINEPHRINE BITARTRATE INJ/PF 4 MG/4 ML SDV IV ONE (22:03)
[2018-01-24] MEDS ORDERED: ROCURONIUM BROMIDE INJ 50 MG/5 ML VIAL IV ONE (22:05)
[2018-01-24] MEDS ORDERED: KETAMINE HCL INJ 500 MG/10 ML VIAL IV ONE (22:05)
--- NOTE | 2018-01-24 22:14 | ER Document Report ---
ED General - General Chief Complaint: Shortness Of Breath Stated Complaint: UNRESPONSIVE Time Seen by Provider: 01/24/18 21:09 TRAVEL OUTSIDE OF THE [place] IN LAST 30 DAYS: No - HPI Patient complains to provider of: Unresponsive Onset: Other - 68-year-old female that presents from home after being found unresponsive by her sister, she has a history of emphysema and COPD for which she had previously been on hospice, she had subsequently revoked her hospice for a hip surgery and never reinstituted it, she is a known DNR but unknown DNI status. EMS picked her up her saturations were in the low 70s, they placed an oral pharyngeal airway in place and then were using bag valve ventilation to assist with this patient's breathing, subsequently transitioned her to a nonrebreather mask with breathing treatment initiated. The patient's tachypnea continued thereafter she presented with inability to communicate - Related Data Allergies/Adverse Reactions: No Known Allergies Allergy (Verified 10/25/14 09:26) Past Medical History - General Information source: Relative, Emergency Med Personnel - Social History Smoking Status: Unknown if Ever Smoked Chew tobacco use (# tins/day): No Frequency of alcohol use: None Drug Abuse: None Family History: Reviewed & Not Pertinent Patient has suicidal ideation: No Patient has homicidal ideation: No - Past Medical History Cardiac Medical History: Reports: Hx Hypertension Denies: Hx Coronary Artery Disease, Hx Heart Attack Pulmonary Medical History: Reports: Hx COPD, Hx Pneumonia - WHEN I WAS 7 YRS OLD , Hx Respiratory Failure Denies: Hx Asthma, Hx Bronchitis Neurological Medical History: Denies: Hx Cerebrovascular Accident, Hx Seizures Renal/ Medical History: Denies: Hx Peritoneal Dialysis GI Medical History: Denies: Hx Hepatitis, Hx Hiatal Hernia, Hx Ulcer Musculoskeletal Medical History: Reports Hx Arthritis Psychiatric Medical History: Reports: Hx Depression Infectious Medical History: Denies: Hx Hepatitis Past Surgical History: Reports: Hx Orthopedic Surgery. Denies: Hx Hysterectomy , Hx Mastectomy, Hx Open Heart Surgery, Hx Pacemaker - Immunizations Hx Diphtheria, Pertussis, Tetanus Vaccination: Yes Hx Pneumococcal Vaccination: 04/05/11 Review of Systems - Review of Systems -: Yes ROS unobtainable due to patient's medical condition Physical Exam - Vital signs Vitals: Pulse Resp BP Pulse Ox 79 28 H 155/83 H 84 L 01/24/18 21:05 01/24/18 21:05 01/24/18 21:05 01/24/18 21:05 - General General appearance: Unresponsive In distress: Moderate - HEENT Head: Normocephalic Eyes: Normal Conjunctiva: Normal Cornea: Normal Extraocular movements intact: Yes - Respiratory Respiratory status: Agonal respirations, Labored, Pursed lip breathing, Tachypnea Chest status: Nontender Breath sounds: Rales, Wheezing Chest palpation: Normal - Cardiovascular Rhythm: Regular, Tachycardia Heart sounds: Normal auscultation Murmur: No - Abdominal Inspection: Normal Distension: No distension Tenderness: Nontender - Back Back: Normal - Extremities General upper extremity: Normal inspection, Nontender, Normal strength, Normal temperature General lower extremity: Normal inspection, Nontender, Normal strength, Normal temperature - Neurological Neuro grossly intact: No Cognition: Confused, Inattentive Dupree Coma Scale Eye Opening: To Pain Dupree Coma Scale Verbal: Incomprehensible Rosario Coma Scale Motor: Withdraws to Pain Dupree Coma Scale Total: 8 - Psychological Associated symptoms: Confused Course - Re-evaluation Re-evalutation: 01/25/18 04:44 This 68-year-old female presented with EMS after being found unresponsive and hypoxic at home. She is chronically on oxygen and may have accidentally or intentionally taken herself oxygen this evening. She was found to be markedly hypoxic they initiated breathing treatments for her and placed an oropharyngeal airway prior to arrival. On initial evaluation this patient is minimally responsive, she arouses to noxious stimuli and will open her eyes but is unable to follow commands appropriately. We transitioned this patient to BiPAP, to obtain a reasonable saturation this patient's pressures had to be increased from 8/5-15/8. Her FiO2 had to be increased to 100% as well to maintain a reasonable oxygen saturation. While she was on oxygen and BiPAP her work of breathing continued to be markedly elevated, she continued to have a poor mental status and was subsequently increasingly less responsive. I spoke to her son about her CODE STATUS, he noted that his mother was adamant about avoiding CPR but that he was uncertain about intubation he consulted with his aunt who also helps make medical decisions for her when she is incapacitated who noted they had never talked about intubation. He noted that he would like to proceed with intubation if it meant potential further improvement of his mother's condition. Initiated treatment for possible underlying COPD and emphysema exacerbation utilizing continuous nebulization treatment as well as administration of magnesium patient had received steroids prior to arrival in the further administration further. Made determination to intubate this patient as her mental status had worsened while on BiPAP. Placed patient in a flat position administered ketamine as well as rocuronium for intubation subsequently was able to intubate this patient without any significant desaturations. Following intubation because of the patient's markedly elevated requirements of pressure her blood pressure diminished to the 60s systolic, administered a push of IV Choco-Synephrine 50 mcg, following push of Choco-Synephrine patient had an improvement in her blood pressure which was then chased with levo fed infusion as her blood pressure hovered in the 70s and 80s systolic for a few minutes. Following administration briefly of these medications this patient's hemodynamics improved and her blood pressure improved to the 120 systolic range. She was placed on the ventilator, and administered continuous nebulizations through the ventilator. She began to purposefully move as well as cough on the tube at which time propofol was initiated for sedation for her. Because of her probable mixed picture primarily being related to her COPD and hypoxia and near cardiac arrest made determination for patient to be admitted to the intensive care unit, contacted o Dr. Hodges for evaluation of this patient's status and admission to the intensive care unit. Patient was continuously monitored in the emergency department and reassessed multiple times for condition worsening or improvement, her ventilatory status improved while she was in the emergency department. She was subsequently transitioned to the intensive care unit hemodynamically stable. - Vital Signs Vital signs: Temp Pulse Resp BP Pulse Ox 97.7 F 78 22 H 117/60 99 01/25/18 02:07 01/25/18 00:40 01/25/18 02:07 01/25/18 02:07 01/25/18 04:30 - Laboratory Result Diagrams: 01/24/18 21:12 01/24/18 21:12 Laboratory results interpreted by me: 01/24/18 01/24/18 01/24/18 21:12 21:12 21:12 WBC 10.9 H RDW 14.6 H Seg Neutrophils % 82.0 H Lymphocytes % 11.8 L Absolute Neutrophils 8.9 H Chloride 83 L Carbon Dioxide 51 H* Creatinine 0.42 L Glucose 245 H Phosphorus AST 46 H Creatine Kinase < 20 L Free T4 Urine Protein Urine Glucose (UA) Urine Urobilinogen Urine Ascorbic Acid 01/24/18 01/24/18 01/24/18 21:12 21:12 22:20 WBC RDW Seg Neutrophils % Lymphocytes % Absolute Neutrophils Chloride Carbon Dioxide Creatinine Glucose Phosphorus 6.2 H AST Creatine Kinase Free T4 0.65 L Urine Protein 100 H Urine Glucose (UA) 150 H Urine Urobilinogen 2.0 H Urine Ascorbic Acid 20 H Procedures - Intubation Orotracheal Airway evaluation: Normal anatomy Mallampati Classification: Class 2 Medications: Ketamine, Other - Rocuronium Intubation method: Orotracheal Blade type: Ioana Blade size: 3 Equipment used: Glidescope ETT size: 7.5 ETT secured at: Lips ETT secured at (cm): 23 Breath Sounds after Intubation: Equal End tidal CO2 confirmed: Yes Post Intubation Xray: Yes Intubation Complications: No complications Critical Care Note - Critical Care Note Total time excluding time spent on procedures (mins): 65 Discharge - Discharge Clinical Impression: Hypoxia COPD (chronic obstructive pulmonary disease) Qualifiers: COPD type: unspecified COPD Qualified Code(s): J44.9 - Chronic obstructive pulmonary disease, unspecified Condition: Stable Disposition: ADMITTED INPATIENT Admitting Provider: [facility] Unit Admitted: ICU
--- NOTE | 2018-01-24 22:18 | RADIOLOGY REPORT (SQ) ---
EXAM DESCRIPTION: XR CHEST 1 VIEW COMPLETED DATE/TME: 01/24/2018 00:00 CLINICAL HISTORY: 68 years, Female, sob COMPARISON: None. NUMBER OF VIEWS: 1 TECHNIQUE: Single frontal view of the chest was obtained. LIMITATIONS: The patient is rotated limiting evaluation. FINDINGS: The cardiac mediastinal silhouette is poorly visualized secondary to severe patient rotation. Cardiomegaly and tortuous ectatic atherosclerotic thoracic aorta. No gross pneumothoraces or large pleural effusion. Multifocal bilateral perihilar predominance interstitial and airspace opacities are present raising the concern for multifocal pneumonia versus edema. The visualized bones reveal diffuse demineralization and degenerative change. Spinal stabilization hardware on the RIGHT with severe thoracic spine scoliosis. IMPRESSION: Enlarged cardiac mediastinal silhouette with diffuse perihilar predominance interstitial and airspace opacities raising the concern for multifocal pneumonia versus edema. Please correlate with patient clinical findings and follow-up for resolution. 2010 [employer]- All Rights Reserved
[2018-01-24] MEDS ORDERED: NORMAL SALINE 1000 ML 1,000 ML IV PRN (22:28)
[2018-01-24 22:41] LABS: APPEARANCE,URINE SLIGHTLY-CLOUDY; BILIRUBIN,URINE NEGATIVE (NEGATIVE); COLOR,URINE YELLOW; GLUCOSE, URINE 150 mg/dL (NEGATIVE); KETONES,URINE NEGATIVE (NEGATIVE); LEUKOCYTE ESTERASE,URINE NEGATIVE (NEGATIVE); NITRITE,URINE NEGATIVE (NEGATIVE); PROTEIN,URINE 100 mg/dL (NEGATIVE); URINE SPECIFIC GRAVITY 1.016
[2018-01-24] MEDS ORDERED: VANCOMYCIN HCL 0 MG in DEXTROSE 5%-WATER 250 ML IV NR (22:45)
[2018-01-24 22:49] LABS: INTERNATIONAL RATION (INR) 0.94
[2018-01-24 22:50] LABS: LIPASE 31.5 U/L (23-300); PARTIAL THROMBOPLASTIN TIME 27.7 SEC (23.5-35.8); PHOSPHORUS 6.2 mg/dL (2.5-4.5)
[2018-01-24] MEDS ORDERED: PIPERACILLIN/TAZOBACTAM 3.375 GM VIAL IV PRN (22:51)
--- NOTE | 2018-01-24 22:52 | RADIOLOGY REPORT (SQ) ---
EXAM DESCRIPTION: XR CHEST 1 VIEW COMPLETED DATE/TME: 01/24/2018 00:00 CLINICAL HISTORY: 68 years Female, post intubation COMPARISON: Same day. NUMBER OF VIEWS/TECHNIQUE: 1/AP FINDINGS: Moderate mixed airspace and interstitial opacities, mildly enlarged cardiac silhouette, atherosclerosis, apple fixation of the spine. No pneumothorax. Stable bony thorax. IMPRESSION: No significant change.
[2018-01-24 23:07] LABS: FREE T4 (FREE THYROXINE) 0.65 ng/dL (0.78-2.19)
[2018-01-24 23:21] LABS: THYROID STIMULATING HORMONE 1.61 uIU/mL (0.47-4.68)
--- NOTE | 2018-01-24 23:22 | EKG REPORT ---
SEVERITY:- NORMAL ECG - SINUS RHYTHM : Confirmed by: Malina Dobbins 24-Jan-2018 23:22:13
[2018-01-24] MEDS ORDERED: PROPOFOL 1,000 MG/100 ML INFUS..BTL IV ONE (23:34)
[2018-01-24] MEDS: PROPOFOL 1,000 MG/100 ML INFUS..BTL IV PRN (23:43)
[2018-01-25] MEDS ORDERED: PIPERACILLIN SODIUM/TAZOBACTAM 3.375 GM in NORMAL SALINE 100 ML IV SCH ×2
[2018-01-25 00:13] LABS: CREATINE KINASE MB 1.51 ng/mL (<4.55)
[2018-01-25 00:16] LABS: TROPONIN I < 0.012 ng/mL
[2018-01-25] MEDS: NORMAL SALINE 1000 ML 1,000 ML IV PRN ×2 (00:55→11:52)
[2018-01-25] MEDS ORDERED: VANCOMYCIN HCL INJ 1000 MG VIAL IV PRN (02:17)
[2018-01-25] MEDS ORDERED: VANCOMYCIN HCL INJ 1000 MG VIAL ONE (02:40)
[2018-01-25] MEDS ORDERED: PIPERACILLIN/TAZOBACTAM 3.375 GM VIAL IV ONE (02:40)
[2018-01-25] MEDS: PROPOFOL 1,000 MG/100 ML INFUS..BTL IV PRN ×5 (02:55→22:03)
[2018-01-25] MEDS ORDERED: VANCOMYCIN HCL 1,000 MG in DEXTROSE 5%-WATER 250 ML IV ONE (03:00)
[2018-01-25] MEDS: HEPARIN SOD (PORCINE) 5,000 UNIT/ML 1 ML SYRINGE SUBCUT SCH ×3 (05:19→21:03)
[2018-01-25 06:20] LABS: HEMATOCRIT 30.9 % (36.0-47.0); HEMOGLOBIN 10.2 g/dL (12.0-15.5); MEAN CORPUSCULAR HEMOGLOBIN 29.6 pg (27.0-33.4); MEAN CORPUSCULAR VOLUME 90 fl (80-97); PLATELET COUNT 137 10^3/uL (150-450); RED BLOOD COUNT 3.44 10^6/uL (3.72-5.28); RED CELL DISTRIBUTION WIDTH 14.2 % (11.5-14.0); WHITE BLOOD COUNT 9.2 10^3/uL (4.0-10.5)
[2018-01-25 06:24] LABS: ALANINE AMINOTRANSFERASE 38 U/L (9-52); ALBUMIN 3.2 g/dL (3.5-5.0); ALKALINE PHOSPHATASE 89 U/L (38-126); ASPARTATE AMINO TRANSFERASE 30 U/L (14-36); BILIRUBIN,DIRECT 0.1 mg/dL (0.0-0.4); BILIRUBIN,TOTAL 0.4 mg/dL (0.2-1.3); BLOOD UREA NITROGEN 11 mg/dL (7-20); CALCIUM 8.7 mg/dL (8.4-10.2); CHLORIDE 88 mmol/L (98-107); CHOLESTEROL 138.95 mg/dL (0-200); GLUCOSE 152 mg/dL (75-110); POTASSIUM 4.2 mmol/L (3.6-5.0); SODIUM 137.2 mmol/L (137-145); TOTAL PROTEIN 5.5 g/dL (6.3-8.2); TRIGLYCERIDES 48 mg/dL (<150)
[2018-01-25 06:33] LABS: CREATINE KINASE MB 1.15 ng/mL (<4.55)
[2018-01-25 06:35] LABS: DIRECT LDL 91 mg/dL (<100)
[2018-01-25 06:36] LABS: TROPONIN I < 0.012 ng/mL
[2018-01-25 06:37] LABS: ANION GAP 8 (5-19); CREATINE KINASE < 20 U/L (30-135)
--- NOTE | 2018-01-25 06:43 | RADIOLOGY REPORT (SQ) ---
EXAM DESCRIPTION: XR CHEST 1 VIEW COMPLETED DATE/TME: 01/25/2018 06:00 CLINICAL HISTORY: 68 years Female, pneumonia COMPARISON: One day prior. NUMBER OF VIEWS/TECHNIQUE: 1/AP FINDINGS: Moderate to severe mixed interstitial and airspace opacities include new moderate patchy opacities of bilateral upper lung loco , small hazy opacity-effusion of bilateral lung bases, moderately enlarged cardiac silhouette, endotracheal tube tip is 0.6 from the yvonne; recommend 4.4 cm retraction of the endotracheal tube. Likely adequate enteric tube obscured distally. Moderate levo convexity and thoracic apple fixation. Thoracic rib deformities. No pneumothorax. Stable bony thorax. IMPRESSION: 1. Endotracheal tube tip is 0.6 from the yvonne; recommend 4.4 cm retraction of the endotracheal tube. 2. Interval worsening includes moderate airspace opacities of bilateral upper lobes.
[2018-01-25 06:45] LABS: CARBON DIOXIDE 41 mmol/L (22-30)
[2018-01-25 06:58] LABS: ABSOLUTE LYMPHOCYTES# (MANUAL) 0.8 10^3/uL (0.5-4.7); ABSOLUTE MONOCYTES # (MANUAL) 0.2 10^3/uL (0.1-1.4); ABSOLUTE NEUTROPHILS# (MANUAL) 8.2 10^3/uL (1.7-8.2); BASOPHILS % (MANUAL) 0 % (0-2); EOSINOPHILS % (MANUAL) 0 % (0-6); LYMPHOCYTES % (MANUAL) 9 % (13-45); MONOCYTES % (MANUAL) 2 % (3-13); OVALOCYTES SLIGHT; PLATELET COMMENT DECREASED; POIKILOCYTOSIS 1+; SEGMENTED NEUTROPHILS % (MAN) 89 % (42-78); STOMATOCYTES 1+; TOTAL CELLS COUNTED 100
[2018-01-25] MEDS: PIPERACILLIN SODIUM/TAZOBACTAM 3.375 GM in NORMAL SALINE 100 ML IV SCH ×3 (08:31→21:01)
[2018-01-25 08:32] LABS: ARTERIAL BLOOD BASE EXCESS 18.1 mmol/L; ARTERIAL BLOOD H2CO3 1.64 mmol/L (1.05-1.35); ARTERIAL BLOOD HCO3 43.4 mmol/L (20-24); ARTERIAL BLOOD O2 SATURATION 92.2 % (94-98); ARTERIAL BLOOD PCO2 54.5 mmHg (35-45); ARTERIAL BLOOD PH 7.52 (7.35-7.45); ARTERIAL BLOOD PO2 58.4 mmHg (80-100); ARTERIAL BLOOD TOTAL CO2 45.1 mmol/L (21-25)
[2018-01-25 08:33] LABS: ARTERIAL BLOOD FIO2 60%
[2018-01-25 10:39] LABS: ARTERIAL BLOOD BASE EXCESS 17.2 mmol/L; ARTERIAL BLOOD H2CO3 1.67 mmol/L (1.05-1.35); ARTERIAL BLOOD HCO3 42.7 mmol/L (20-24); ARTERIAL BLOOD O2 SATURATION 93.2 % (94-98); ARTERIAL BLOOD PCO2 55.6 mmHg (35-45); ARTERIAL BLOOD PO2 62.4 mmHg (80-100); ARTERIAL BLOOD TOTAL CO2 44.4 mmol/L (21-25)
[2018-01-25 10:40] LABS: ARTERIAL BLOOD FIO2 60%
[2018-01-25 12:21] LABS: CREATINE KINASE MB 0.57 ng/mL (<4.55)
[2018-01-25 12:23] LABS: TROPONIN I < 0.012 ng/mL
[2018-01-25 13:39] LABS: ARTERIAL BLOOD BASE EXCESS 16.6 mmol/L; ARTERIAL BLOOD FIO2 60%; ARTERIAL BLOOD H2CO3 1.45 mmol/L (1.05-1.35); ARTERIAL BLOOD HCO3 40.9 mmol/L (20-24); ARTERIAL BLOOD O2 SATURATION 94.5 % (94-98); ARTERIAL BLOOD PCO2 48.2 mmHg (35-45); ARTERIAL BLOOD PH 7.55 (7.35-7.45); ARTERIAL BLOOD PO2 64.2 mmHg (80-100); ARTERIAL BLOOD TOTAL CO2 42.4 mmol/L (21-25)
[2018-01-25] MEDS: RINGERS SOLUTION,LACTATED 1,000 ML IV PRN (14:36)
[2018-01-25 15:24] LABS: ARTERIAL BLOOD BASE EXCESS 13.8 mmol/L; ARTERIAL BLOOD H2CO3 1.54 mmol/L (1.05-1.35); ARTERIAL BLOOD HCO3 38.8 mmol/L (20-24); ARTERIAL BLOOD PCO2 51.2 mmHg (35-45); ARTERIAL BLOOD PO2 65.2 mmHg (80-100); ARTERIAL BLOOD TOTAL CO2 40.3 mmol/L (21-25)
[2018-01-25 15:27] LABS: ARTERIAL BLOOD FIO2 60%
[2018-01-25] MEDS: VANCOMYCIN HCL 1,000 MG in DEXTROSE 5%-WATER 250 ML IV SCH (17:27)
--- NOTE | 2018-01-25 20:26 | PDOC H&P ---
History of Present Illness Admission Date/PCP: 01/24/18 22:21 KIMI CANELA MD History of Present Illness: MITCH ORELLANA is a 68 year old female, She was brought to emergency room unresponsive, no history could be obtained from the patient, she was intubated in the emergency room. She has chronic obstructive lung disease, she was recently in hospice program, she sustained fracture of the right hip, recently underwent open reduction internal fixation of the hip she was in [facility], she was just discharged from the [facility]. The initial blood gas that was done pH was 7.52, PO2 58.4, PCO2 54.5, bicarbonate 43.4, on FiO2 30%, chest x-ray showed diffuse bilateral infiltrate that suggest pneumonia.There is no pulmonary corporate travel consultant at this time, the initial vent setting for this patient, SIMV 12 FiO2 35% PEEP 5 pressure support 10.Patient was found unresponsive by her daughter, no one knows how long she has been on the ground before she was found unresponsive, the initial antibiotic coverage, gram-negative gram-positive and anaerobes.She was recently in nursing homes and also the hospital, hospital associated pneumonia must be considered as a potential etiology of her pneumonia Past Medical History Cardiac Medical History: Reports: Hypertension Pulmonary Medical History: Reports: Chronic Obstructive Pulmonary Disease (COPD) , Pneumonia - WHEN I WAS 7 YRS OLD, Respiratory Failure GI Medical History: Denies: Hepatitis, Hiatal Hernia Musculoskeltal Medical History: Reports: Arthritis Psychiatric Medical History: Reports: Depression Hematology: Past Surgical History Past Surgical History: Reports: Orthopedic Surgery Social History Smoking Status: Unknown if Ever Smoked Frequency of Alcohol Use: None Hx Recreational Drug Use: No Hx Prescription Drug Abuse: No - Advance Directive Resuscitation Status: Do Not Resuscitate Family History Family History: Reviewed & Not Pertinent Parental Family History Reviewed: Yes Children Family History Reviewed: Yes Sibling(s) Family History Reviewed.: Yes Medication/Allergy Home Medications: Escitalopram Oxalate [Lexapro] 5 mg PO DAILY 11/25/17 Metoprolol Succinate [Toprol XL 100 mg Tablet] 100 mg PO DAILY 11/25/17 Allergies/Adverse Reactions: No Known Allergies Allergy (Verified 10/25/14 09:26) Review of Systems ROS unobtainable: Due to mental status Physical Exam Vital Signs: Temp Pulse Resp BP Pulse Ox 99.7 F 75 12 109/53 L 96 01/25/18 19:37 01/25/18 18:00 01/25/18 18:23 01/25/18 18:23 01/25/18 18:23 Intake & Output 01/24/18 01/25/18 01/26/18 06:59 06:59 06:59 Intake Total 226 1395 Output Total 350 1645 Balance -124 -250 Weight 65.5 kg 65.5 kg General appearance: PRESENT: severe distress Eye exam: PRESENT: PERRLA Respiratory exam: PRESENT: decreased breath sounds, rhonchi Cardiovascular exam: PRESENT: +S1, +S2 GI/Abdominal exam: PRESENT: soft Neurological exam: PRESENT: altered Results Laboratory Results: 01/25/18 05:58 01/25/18 05:58 01/24/18 01/25/18 01/25/18 23:22 05:58 05:58 WBC 9.2 RBC 3.44 L Hgb 10.2 L Hct 30.9 L MCV 90 MCH 29.6 MCHC 33.0 RDW 14.2 H Plt Count 137 L Seg Neutrophils % Not Reportable Lymphocytes % Not Reportable Monocytes % Not Reportable Eosinophils % Not Reportable Basophils % Not Reportable Absolute Neutrophils Not Reportable Absolute Lymphocytes Not Reportable Absolute Monocytes Not Reportable Absolute Eosinophils Not Reportable Absolute Basophils Not Reportable Carbonic Acid HCO3/H2CO3 Ratio ABG pH ABG pCO2 ABG pO2 ABG HCO3 ABG O2 Saturation ABG Base Excess FiO2 Sodium 137.2 Potassium 4.2 Chloride 88 L Carbon Dioxide 41 H* D Anion Gap 8 BUN 11 Creatinine 0.32 L Est GFR ( Amer) > 60 Est GFR (Non-Af Amer) > 60 Glucose 152 H Calcium 8.7 Total Bilirubin 0.4 AST 30 ALT 38 Alkaline Phosphatase 89 Ammonia 41.3 H Total Protein 5.5 L Albumin 3.2 L Triglycerides 48 Cholesterol 138.95 LDL Cholesterol Direct 91 VLDL Cholesterol 10.0 HDL Cholesterol 53 01/25/18 01/25/18 01/25/18 08:15 10:25 11:09 WBC RBC Hgb Hct MCV MCH MCHC RDW Plt Count Seg Neutrophils % Lymphocytes % Monocytes % Eosinophils % Basophils % Absolute Neutrophils Absolute Lymphocytes Absolute Monocytes Absolute Eosinophils Absolute Basophils Carbonic Acid 1.64 H 1.67 H HCO3/H2CO3 Ratio 26:1 25:1 ABG pH 7.52 H 7.50 H ABG pCO2 54.5 H 55.6 H ABG pO2 58.4 L 62.4 L ABG HCO3 43.4 H 42.7 H ABG O2 Saturation 92.2 L 93.2 L ABG Base Excess 18.1 17.2 FiO2 60% 60% Sodium Potassium Chloride Carbon Dioxide Anion Gap BUN Creatinine Est GFR ( Amer) Est GFR (Non-Af Amer) Glucose Calcium Total Bilirubin AST ALT Alkaline Phosphatase Ammonia Total Protein Albumin Triglycerides 96 Cholesterol LDL Cholesterol Direct VLDL Cholesterol HDL Cholesterol 01/25/18 01/25/18 13:30 15:12 WBC RBC Hgb Hct MCV MCH MCHC RDW Plt Count Seg Neutrophils % Lymphocytes % Monocytes % Eosinophils % Basophils % Absolute Neutrophils Absolute Lymphocytes Absolute Monocytes Absolute Eosinophils Absolute Basophils Carbonic Acid 1.45 H 1.54 H HCO3/H2CO3 Ratio 28:1 25:1 ABG pH 7.55 H 7.50 H ABG pCO2 48.2 H 51.2 H ABG pO2 64.2 L 65.2 L ABG HCO3 40.9 H 38.8 H ABG O2 Saturation 94.5 94.0 ABG Base Excess 16.6 13.8 FiO2 60% 60% Sodium Potassium Chloride Carbon Dioxide Anion Gap BUN Creatinine Est GFR ( Amer) Est GFR (Non-Af Amer) Glucose Calcium Total Bilirubin AST ALT Alkaline Phosphatase Ammonia Total Protein Albumin Triglycerides Cholesterol LDL Cholesterol Direct VLDL Cholesterol HDL Cholesterol 01/24/18 01/25/18 01/25/18 23:22 05:58 05:58 Creatine Kinase < 20 L CK-MB (CK-2) 1.51 1.15 Troponin I < 0.012 < 0.012 01/25/18 01/25/18 11:09 11:09 Creatine Kinase < 20 L CK-MB (CK-2) 0.57 Troponin I < 0.012 Impressions: Chest X-Ray 01/25/18 06:00 IMPRESSION: 1. Endotracheal tube tip is 0.6 from the yvonne; recommend 4.4 cm retraction of the endotracheal tube. 2. Interval worsening includes moderate airspace opacities of bilateral upper lobes. Assessment & Plan - Diagnosis (1) Acute respiratory failure with hypoxia and hypercapnia Is this a current diagnosis for this admission?: Yes Plan: Patient on mechanical ventilation, initial vent setting, SIMV 12, tidal volume 400 based on 6 mg/kg ideal body weight, PEEP 5, pressure support 10 (2) Bilateral pneumonia Qualifiers: Pneumonia type: due to unspecified organism Lung location: unspecified part of lung Qualified Code(s): J18.9 - Pneumonia, unspecified organism Is this a current diagnosis for this admission?: Yes Plan: Patient on IV antibiotic, Zosyn, vancomycin to cover all potential pathogens (3) Sepsis Qualifiers: Sepsis type: sepsis due to unspecified organism Qualified Code(s): A41.9 - Sepsis, unspecified organism Is this a current diagnosis for this admission?: Yes Plan: Septic due to pneumonia (4) Post-polio syndrome Is this a current diagnosis for this admission?: Yes (5) Scoliosis (and kyphoscoliosis), idiopathic Is this a current diagnosis for this admission?: Yes - Time Time Spent: Greater than 70 Minutes Critical Time spent with patient: 35 or more minutes Medications reviewed and adjusted accordingly: Yes
[2018-01-26] MEDS: PROPOFOL 1,000 MG/100 ML INFUS..BTL IV PRN ×6 (02:06→21:19)
[2018-01-26] MEDS: PIPERACILLIN SODIUM/TAZOBACTAM 3.375 GM in NORMAL SALINE 100 ML IV SCH ×4 (02:06→21:19)
[2018-01-26] MEDS: RINGERS SOLUTION,LACTATED 1,000 ML IV PRN ×2 (02:07→16:04)
[2018-01-26 04:06] LABS: ABSOLUTE LYMPHOCYTES (AUTO) 0.9 10^3/uL (0.5-4.7); ABSOLUTE MONOCYTES (AUTO) 0.9 10^3/uL (0.1-1.4); ABSOLUTE NEUT (AUTO) 6.1 10^3/uL (1.7-8.2); BASOPHILS % (AUTO) 0.3 % (0-2); EOSINOPHILS % (AUTO) 0.4 % (0-6); HEMATOCRIT 28.7 % (36.0-47.0); HEMOGLOBIN 9.6 g/dL (12.0-15.5); LYMPHOCYTES % (AUTO) 11.5 % (13-45); MEAN CORPUSCULAR HEMOGLOBIN 29.4 pg (27.0-33.4); MEAN CORPUSCULAR HGB CONC 33.4 g/dL (32.0-36.0); MEAN CORPUSCULAR VOLUME 88 fl (80-97); MONOCYTES % (AUTO) 11.4 % (3-13); PLATELET COUNT 133 10^3/uL (150-450); RED BLOOD COUNT 3.26 10^6/uL (3.72-5.28); RED CELL DISTRIBUTION WIDTH 14.9 % (11.5-14.0); SEGMENTED NEUTROPHILS % (AUTO) 76.4 % (42-78); TOTAL CELLS COUNTED % (AUTO) 100 %
[2018-01-26 04:27] LABS: ALANINE AMINOTRANSFERASE 34 U/L (9-52); ALBUMIN 2.6 g/dL (3.5-5.0); ALKALINE PHOSPHATASE 76 U/L (38-126); ASPARTATE AMINO TRANSFERASE 18 U/L (14-36); BILIRUBIN,DIRECT 0.1 mg/dL (0.0-0.4); BILIRUBIN,TOTAL 0.5 mg/dL (0.2-1.3); BLOOD UREA NITROGEN 9 mg/dL (7-20); CALCIUM 8.6 mg/dL (8.4-10.2); GLUCOSE 90 mg/dL (75-110); TOTAL PROTEIN 4.7 g/dL (6.3-8.2)
[2018-01-26 04:33] LABS: CARBON DIOXIDE 39 mmol/L (22-30); CHLORIDE 100 mmol/L (98-107)
[2018-01-26 04:41] LABS: POTASSIUM 3.2 mmol/L (3.6-5.0)
[2018-01-26 04:42] LABS: ANION GAP 3 (5-19)
[2018-01-26] MEDS: VANCOMYCIN HCL 1,000 MG in DEXTROSE 5%-WATER 250 ML IV SCH ×2 (05:51→18:48)
[2018-01-26] MEDS: HEPARIN SOD (PORCINE) 5,000 UNIT/ML 1 ML SYRINGE SUBCUT SCH ×3 (05:52→21:19)
[2018-01-26 06:10] LABS: ARTERIAL BLOOD BASE EXCESS 7.1 mmol/L; ARTERIAL BLOOD H2CO3 1.62 mmol/L (1.05-1.35); ARTERIAL BLOOD O2 SATURATION 96.8 % (94-98); ARTERIAL BLOOD PCO2 53.8 mmHg (35-45); ARTERIAL BLOOD PH 7.41 (7.35-7.45); ARTERIAL BLOOD PO2 89.9 mmHg (80-100); ARTERIAL BLOOD TOTAL CO2 34.7 mmol/L (21-25)
--- NOTE | 2018-01-26 06:18 | RADIOLOGY REPORT (SQ) ---
EXAM DESCRIPTION: XR CHEST 1 VIEW COMPLETED DATE/TME: 01/26/2018 06:00 CLINICAL HISTORY: 68 years Female, PNA, resp failure COMPARISON: One day prior. NUMBER OF VIEWS/TECHNIQUE: 1/AP FINDINGS: Moderate to severe extensive airspace and interstitial opacity, moderate hazy opacity-layered effusion of bilateral lower and mid hemithoraces, moderately enlarged cardiac silhouette, endotracheal tube tip is at the proximal right main bronchus; recommend retraction of the endotracheal tube by 5 cm. Adequate appearing enteric tube obscured distally. Thoracic apple. No pneumothorax. Deformity of the bony thorax. IMPRESSION: Endotracheal tube tip is at the proximal right main bronchus; recommend retraction of the endotracheal tube by 5 cm.
[2018-01-26 06:21] LABS: ARTERIAL BLOOD FIO2 60%
[2018-01-26] MEDS: POTASSIUM CHLORIDE 20 MEQ/15 ML UDCUP PO SCH ×2 (11:43→13:45)
[2018-01-26] MEDS ORDERED: MORPHINE SULFATE 10 MG/ML INJ ONE (14:47)
--- NOTE | 2018-01-26 15:51 | PDOC PROGRESS REPORT ---
Subjective Progress Note for:: 01/26/18 Subjective:: Patient intubated Reason For Visit: ACUTE RESPIRATORY FAILURE, BILATERAL PNEUMONIA Physical Exam Vital Signs: Temp Pulse Resp BP Pulse Ox 100.6 F H 94 24 H 113/62 94 01/26/18 14:53 01/26/18 14:00 01/26/18 14:53 01/26/18 14:53 01/26/18 14:53 Intake & Output 01/25/18 01/26/18 01/27/18 06:59 06:59 06:59 Intake Total 226 3089 156 Output Total 350 2620 1200 Balance -124 469 -1044 Weight 65.5 kg 67.1 kg General appearance: PRESENT: other - Patient on vent support Respiratory exam: PRESENT: clear to auscultation ryley Cardiovascular exam: PRESENT: +S1, +S2 GI/Abdominal exam: PRESENT: soft Neurological exam: PRESENT: alert Results Laboratory Results: 01/26/18 03:48 01/26/18 03:48 01/26/18 01/26/18 01/26/18 03:48 03:48 06:05 WBC 8.0 RBC 3.26 L Hgb 9.6 L Hct 28.7 L MCV 88 MCH 29.4 MCHC 33.4 RDW 14.9 H Plt Count 133 L Seg Neutrophils % 76.4 Lymphocytes % 11.5 L Monocytes % 11.4 Eosinophils % 0.4 Basophils % 0.3 Absolute Neutrophils 6.1 Absolute Lymphocytes 0.9 Absolute Monocytes 0.9 Absolute Eosinophils 0.0 Absolute Basophils 0.0 Carbonic Acid 1.62 H HCO3/H2CO3 Ratio 20:1 ABG pH 7.41 ABG pCO2 53.8 H ABG pO2 89.9 ABG HCO3 33.0 H ABG O2 Saturation 96.8 ABG Base Excess 7.1 FiO2 60% Sodium 142.0 Potassium 3.2 L D Chloride 100 Carbon Dioxide 39 H Anion Gap 3 L BUN 9 Creatinine 0.55 Est GFR ( Amer) > 60 Est GFR (Non-Af Amer) > 60 Glucose 90 Calcium 8.6 Total Bilirubin 0.5 AST 18 ALT 34 Alkaline Phosphatase 76 Total Protein 4.7 L Albumin 2.6 L 01/24/18 01/25/18 01/25/18 23:22 05:58 05:58 Creatine Kinase < 20 L CK-MB (CK-2) 1.51 1.15 Troponin I < 0.012 < 0.012 01/25/18 01/25/18 11:09 11:09 Creatine Kinase < 20 L CK-MB (CK-2) 0.57 Troponin I < 0.012 Impressions: Chest X-Ray 01/26/18 06:00 IMPRESSION: Endotracheal tube tip is at the proximal right main bronchus; recommend retraction of the endotracheal tube by 5 cm. Assessment & Plan - Diagnosis (1) Acute respiratory failure with hypoxia and hypercapnia Is this a current diagnosis for this admission?: Yes Plan: She continues to require vent support, not to be unable, chest x-ray showed diffuse infiltrate, cannot rule out edema, give Lasix one-time dose, continue present vent setting (2) Bilateral pneumonia Qualifiers: Pneumonia type: due to unspecified organism Lung location: unspecified part of lung Qualified Code(s): J18.9 - Pneumonia, unspecified organism Is this a current diagnosis for this admission?: Yes Plan: Continue antibiotic (3) Sepsis Qualifiers: Sepsis type: sepsis due to unspecified organism Qualified Code(s): A41.9 - Sepsis, unspecified organism Is this a current diagnosis for this admission?: Yes (4) Post-polio syndrome Is this a current diagnosis for this admission?: Yes (5) Scoliosis (and kyphoscoliosis), idiopathic Is this a current diagnosis for this admission?: Yes (6) Hypokalemia Is this a current diagnosis for this admission?: Yes Plan: Replace potassium - Plan Summary Plan Summary: Start tube feed, patient condition still critical
[2018-01-26 18:29] LABS: VANCOMYCIN,TROUGH 12.9 ug/mL (5.0-20.0)
[2018-01-26] MEDS: MORPHINE SULFATE 10 MG/ML INJ IV PRN (18:46)
[2018-01-26] MEDS: LANSOPRAZOLE 30 MG TAB.RAP.DR PO SCH (18:48)
[2018-01-27] MEDS: MORPHINE SULFATE 10 MG/ML INJ IV PRN ×4 (01:23→22:47)
[2018-01-27] MEDS: PROPOFOL 1,000 MG/100 ML INFUS..BTL IV PRN ×5 (01:24→23:06)
[2018-01-27] MEDS: RINGERS SOLUTION,LACTATED 1,000 ML IV PRN ×2 (02:05→13:31)
[2018-01-27] MEDS: PIPERACILLIN SODIUM/TAZOBACTAM 3.375 GM in NORMAL SALINE 100 ML IV SCH ×4 (02:06→21:47)
[2018-01-27 04:32] LABS: ABSOLUTE EOSINOPHILS # (AUTO) 0.2 10^3/uL (0.0-0.6); ABSOLUTE LYMPHOCYTES (AUTO) 0.8 10^3/uL (0.5-4.7); ABSOLUTE MONOCYTES (AUTO) 0.8 10^3/uL (0.1-1.4); ABSOLUTE NEUT (AUTO) 4.5 10^3/uL (1.7-8.2); BASOPHILS % (AUTO) 0.4 % (0-2); EOSINOPHILS % (AUTO) 2.7 % (0-6); HEMATOCRIT 28.2 % (36.0-47.0); HEMOGLOBIN 9.6 g/dL (12.0-15.5); MEAN CORPUSCULAR HEMOGLOBIN 30.2 pg (27.0-33.4); MEAN CORPUSCULAR VOLUME 89 fl (80-97); MONOCYTES % (AUTO) 12.4 % (3-13); PLATELET COUNT 122 10^3/uL (150-450); RED BLOOD COUNT 3.18 10^6/uL (3.72-5.28); RED CELL DISTRIBUTION WIDTH 15.2 % (11.5-14.0); SEGMENTED NEUTROPHILS % (AUTO) 71.5 % (42-78); TOTAL CELLS COUNTED % (AUTO) 100 %; WHITE BLOOD COUNT 6.3 10^3/uL (4.0-10.5)
[2018-01-27 04:56] LABS: ALANINE AMINOTRANSFERASE 27 U/L (9-52); ALBUMIN 2.4 g/dL (3.5-5.0); ALKALINE PHOSPHATASE 64 U/L (38-126); ASPARTATE AMINO TRANSFERASE 18 U/L (14-36); BILIRUBIN,DIRECT 0.1 mg/dL (0.0-0.4); BILIRUBIN,TOTAL 0.4 mg/dL (0.2-1.3); BLOOD UREA NITROGEN 12 mg/dL (7-20); CALCIUM 8.1 mg/dL (8.4-10.2); GLUCOSE 99 mg/dL (75-110); POTASSIUM 3.6 mmol/L (3.6-5.0); TOTAL PROTEIN 4.7 g/dL (6.3-8.2)
[2018-01-27 05:01] LABS: CARBON DIOXIDE 36 mmol/L (22-30); CHLORIDE 102 mmol/L (98-107); SODIUM 141.8 mmol/L (137-145)
[2018-01-27 05:02] LABS: ANION GAP 4 (5-19)
[2018-01-27] MEDS: VANCOMYCIN HCL 1,250 MG in DEXTROSE 5%-WATER 250 ML IV SCH ×2 (05:27→17:08)
[2018-01-27] MEDS: HEPARIN SOD (PORCINE) 5,000 UNIT/ML 1 ML SYRINGE SUBCUT SCH ×3 (05:28→21:48)
[2018-01-27] MEDS: LANSOPRAZOLE 30 MG TAB.RAP.DR PO SCH ×2 (05:28→17:08)
[2018-01-27 08:30] LABS: ARTERIAL BLOOD BASE EXCESS 8.6 mmol/L; ARTERIAL BLOOD H2CO3 1.93 mmol/L (1.05-1.35); ARTERIAL BLOOD HCO3 35.6 mmol/L (20-24); ARTERIAL BLOOD O2 SATURATION 94.7 % (94-98); ARTERIAL BLOOD PCO2 64.2 mmHg (35-45); ARTERIAL BLOOD PH 7.36 (7.35-7.45); ARTERIAL BLOOD PO2 78.3 mmHg (80-100); ARTERIAL BLOOD TOTAL CO2 37.6 mmol/L (21-25)
[2018-01-27 08:32] LABS: ARTERIAL BLOOD FIO2 60%
--- NOTE | 2018-01-27 09:17 | RADIOLOGY REPORT (SQ) ---
EXAM DESCRIPTION: CHEST SINGLE VIEW COMPLETED DATE/TIME: 01/27/2018 8:38 am REASON FOR STUDY: PNA RESPIRATORY FAILURE COMPARISON: CT chest 11/25/2017 Chest films 01/24/2018, 01/25/2018, 01/26/2018 EXAM PARAMETERS: NUMBER OF VIEWS: One view. TECHNIQUE: Single frontal radiographic view of the chest acquired. RADIATION DOSE: NA LIMITATIONS: Portable technique, large patient chest shape is distorted by profound convex leftward t horacic scoliosis FINDINGS: LUNGS AND PLEURA: Patchy bilateral perihilar consolidation is present, similar compared to 01/26/2018. Differential is pulmonary edema versus pneumonia. Small pleural effusions could not be excluded. No pneumothorax. MEDIASTINUM AND HILAR STRUCTURES: No masses. Contour normal. HEART AND VASCULAR STRUCTURES: Marked cardiomegaly BONES: Convex leftward thoracic curvature with Howe apple HARDWARE: Endotracheal tube tip 1 cm above the yvonne. Nasogastric tube tip and side port in the sto mach. OTHER: No other significant finding. IMPRESSION: Patchy bilateral airspace disease unchanged from 01/26/2018 TECHNICAL DOCUMENTATION: JOB ID: [id number] [employer]- All Rights Reserved Reading location - IP/workstation name: [email or web address]
[2018-01-27 17:10] LABS: ARTERIAL BLOOD BASE EXCESS 5.6 mmol/L; ARTERIAL BLOOD H2CO3 1.41 mmol/L (1.05-1.35); ARTERIAL BLOOD HCO3 30.6 mmol/L (20-24); ARTERIAL BLOOD O2 SATURATION 98.3 % (94-98); ARTERIAL BLOOD PCO2 46.9 mmHg (35-45); ARTERIAL BLOOD PH 7.43 (7.35-7.45); ARTERIAL BLOOD PO2 114.6 mmHg (80-100)
[2018-01-27 17:11] LABS: ARTERIAL BLOOD FIO2 100%
[2018-01-27] MEDS: LORAZEPAM 24 MG/ D5W 240 ML IV PRN (23:01)
[2018-01-28] MEDS: RINGERS SOLUTION,LACTATED 1,000 ML IV PRN (03:00)
[2018-01-28] MEDS: PIPERACILLIN SODIUM/TAZOBACTAM 3.375 GM in NORMAL SALINE 100 ML IV SCH ×4 (04:19→21:05)
[2018-01-28] MEDS: PROPOFOL 1,000 MG/100 ML INFUS..BTL IV PRN ×3 (04:19→17:03)
[2018-01-28 04:27] LABS: ANION GAP 9 (5-19); CARBON DIOXIDE 30 mmol/L (22-30); CHLORIDE 103 mmol/L (98-107); GLUCOSE 101 mg/dL (75-110); SODIUM 141.8 mmol/L (137-145); TRIGLYCERIDES 182 mg/dL (<150)
[2018-01-28 04:29] LABS: BLOOD UREA NITROGEN 12 mg/dL (7-20); CALCIUM 8.1 mg/dL (8.4-10.2)
[2018-01-28 04:35] LABS: POTASSIUM 2.9 mmol/L (3.6-5.0)
[2018-01-28] MEDS: VANCOMYCIN HCL 1,250 MG in DEXTROSE 5%-WATER 250 ML IV SCH ×2 (05:37→17:04)
[2018-01-28] MEDS: HEPARIN SOD (PORCINE) 5,000 UNIT/ML 1 ML SYRINGE SUBCUT SCH ×3 (05:37→21:06)
[2018-01-28] MEDS: LANSOPRAZOLE 30 MG TAB.RAP.DR PO SCH ×2 (05:38→17:03)
[2018-01-28] MEDS: POTASSIUM CHLORIDE 20 MEQ/50 ML RTU IV SCH ×3 (05:38→09:05)
[2018-01-28 06:47] LABS: ARTERIAL BLOOD BASE EXCESS 6.8 mmol/L; ARTERIAL BLOOD H2CO3 1.15 mmol/L (1.05-1.35); ARTERIAL BLOOD HCO3 30.1 mmol/L (20-24); ARTERIAL BLOOD O2 SATURATION 93.2 % (94-98); ARTERIAL BLOOD PCO2 38.2 mmHg (35-45); ARTERIAL BLOOD PH 7.52 (7.35-7.45); ARTERIAL BLOOD PO2 59.6 mmHg (80-100); ARTERIAL BLOOD TOTAL CO2 31.3 mmol/L (21-25)
[2018-01-28 06:48] LABS: ARTERIAL BLOOD FIO2 60%
--- NOTE | 2018-01-28 07:59 | RADIOLOGY REPORT (SQ) ---
EXAM DESCRIPTION: XR CHEST 1 VIEW COMPLETED DATE/TME: 01/28/2018 08:00 CLINICAL HISTORY: 68 years, Female, on ventilator COMPARISON: 01/27/2018 NUMBER OF VIEWS: One TECHNIQUE: AP view of the chest LIMITATIONS: None. FINDINGS: There are grossly stable diffuse interstitial and airspace opacities. The heart is enlarged. Bilateral pleural effusions are likely present. There is no pneumothorax. The endotracheal and nasogastric tubes are stable in position. A spinal apple is partially visualized. IMPRESSION: No significant change compared to the prior exam. 2011 [employer]- All Rights Reserved
[2018-01-28 08:32] LABS: ABSOLUTE EOSINOPHILS # (AUTO) 0.2 10^3/uL (0.0-0.6); ABSOLUTE LYMPHOCYTES (AUTO) 0.9 10^3/uL (0.5-4.7); ABSOLUTE MONOCYTES (AUTO) 0.6 10^3/uL (0.1-1.4); ABSOLUTE NEUT (AUTO) 4.3 10^3/uL (1.7-8.2); BASOPHILS % (AUTO) 0.8 % (0-2); EOSINOPHILS % (AUTO) 3.9 % (0-6); HEMATOCRIT 26.1 % (36.0-47.0); HEMOGLOBIN 8.9 g/dL (12.0-15.5); LYMPHOCYTES % (AUTO) 14.9 % (13-45); MEAN CORPUSCULAR HEMOGLOBIN 29.5 pg (27.0-33.4); MEAN CORPUSCULAR HGB CONC 33.9 g/dL (32.0-36.0); MEAN CORPUSCULAR VOLUME 87 fl (80-97); MONOCYTES % (AUTO) 9.5 % (3-13); PLATELET COUNT 133 10^3/uL (150-450); RED CELL DISTRIBUTION WIDTH 15.2 % (11.5-14.0); SEGMENTED NEUTROPHILS % (AUTO) 70.9 % (42-78); TOTAL CELLS COUNTED % (AUTO) 100 %
[2018-01-28] MEDS: DEXTROSE 5%-1/2 NORMAL SALINE 1,000 ML IV PRN (09:56)
[2018-01-28] MEDS ORDERED: IPRATROPIUM/ALBUTEROL 0.5-2.5 MG/3 ML AMPUL NEB ONE (09:57)
[2018-01-28] MEDS: IPRATROPIUM/ALBUTEROL 0.5-2.5 MG/3 ML AMPUL NEB SCH ×2 (09:59→16:24)
--- NOTE | 2018-01-28 12:36 | CONSULTATION REPORT E ---
Consultation Report NAME: MITCH ORELLANA : 1950 AGE: 68Y DATE: 01/27/2018 607 A TO: ALPA GARCIA M.D. FROM: KIMI CANELA M.D. Requesting Physician HISTORY OF PRESENT ILLNESS: The patient is a 68-year-old female who came in with acute respiratory failure requiring invasive mechanical ventilation. The patient was treated for pneumonia bilateral. The patient was noted to be unresponsive at home. The patient was brought to the emergency room. The patient was subsequently intubated and mechanically ventilated. The patient was started on tube feeding and tolerated it well. Has some copious amounts of endotracheal tube secretions, sometimes yellowish to whitish. No fever spiking. There was no vomiting noted in the last 24 hours. The patient tolerated the NG tube feeding and no diarrhea noted. PAST MEDICAL HISTORY: The patient has a history of: 1. Hypertension. 2. COPD. 3. Pneumonia. 4. Respiratory failure. 5. Depression. 6. Arthritis. 7. Orthopedic surgery. 8. Right hip fracture status post open reduction, internal fixation of the right hip. SOCIAL HISTORY: Smoking status unknown. Previous alcohol: None. Excessive use of drugs: None. History of prescription drug abuse: None. FAMILY HISTORY: Unremarkable. The patient could not provide the family history. MEDICATIONS: Include: 1. Lexapro. 2. Metoprolol. ALLERGIES: No known drug allergies. REVIEW OF SYSTEMS: Unremarkable. The patient is intubated and mechanically ventilated and with altered mental status. PHYSICAL EXAMINATION: GENERAL: The patient appeared to be sedated, febrile, not in apparent respiratory distress. VITAL SIGNS: Temperature is 99.7 with a T-max of 99.7, heart rate of 85, blood pressure is 114/57, respiratory 18, saturation 94%. The patient is on SIMV rate of 18, tidal volume 215, pressor support 10, PEEP of 5, peak wave 62, FiO2 was 60% and to be titrated to keep saturation 91-94 percent. Peak A-wave pressure is 30 and 34. Plateau pressure is 26. EYES: No jaundice or pallor. EARS, NOSE, AND THROAT: No ear drainage. No nasal discharge. HEAD/NECK: No scalp swelling. No neck tenderness. Orotracheal tube is in place. CHEST AND LUNGS: No wheezing. No rhonchi. No coarse crackles. CARDIOVASCULAR: S1, S2 distinct. Normal rate, regular rhythm. ABDOMEN: Flabby, positive bowel sounds. Soft, nondistended, nontender. EXTREMITIES: No joint swelling. No cellulitis. LABORATORY: CBC done today showed white count of 6.3, hemoglobin 9.6, hematocrit is 38.2, platelet count is 132. ABG done at 5 p.m. today showed pH of 7.43, PCO2 is 46.9, PO2 is 114.6, and saturation is 98.3 on 100%. The sodium is 151, potassium 3.6, chloride 102, amylase is 36, BUN is 12, creatinine 0.54, glucose 89, calcium is 8.1. Chest x-ray done today showed pulmonary infiltrate bilaterally. No pneumothorax. Endotracheal tube is in place. No pericardial effusion. ASSESSMENT: 1. Acute respiratory failure requiring invasive mechanical ventilation. 2. Pneumonia bilateral. 3. History of COPD, currently not in acute bronchospasm. PLAN AND RECOMMENDATIONS: 1. Continue to optimize ventilator support. 2. Will continue Zosyn and IV vancomycin for now. 3. Will send the sputum for culture. 4. Continue unfractionated heparin for DVT prophylaxis and Prevacid for GI prophylaxis. We will repeat the CBC,chem 7 and ABG tomorrow. DICTATING PHYSICIAN: ALPA GARCIA MD,MPH,ANNETTE [id number] PHY#: [id number] ID: [id number] JOB#: [id number] ACCT: [id number] cc:ALPA GARCIA M.D. > MTDD
[2018-01-28] MEDS: LORAZEPAM 24 MG/ D5W 240 ML IV PRN (13:37)
[2018-01-28 13:40] LABS: ANION GAP 10 (5-19); BLOOD UREA NITROGEN 11 mg/dL (7-20); CARBON DIOXIDE 31 mmol/L (22-30); CHLORIDE 103 mmol/L (98-107); GLUCOSE 117 mg/dL (75-110); SODIUM 143.6 mmol/L (137-145)
--- NOTE | 2018-01-28 13:45 | RADIOLOGY REPORT (SQ) ---
EXAM DESCRIPTION: CHEST SINGLE VIEW COMPLETED DATE/TIME: 01/28/2018 1:24 pm REASON FOR STUDY: possible ETT movement/verification previous report COMPARISON: Earlier the same day. NUMBER OF VIEWS: One view. TECHNIQUE: Single frontal radiographic image of the chest acquired. LIMITATIONS: None. FINDINGS: LUNGS AND PLEURA: Stable appearance. MEDIASTINUM AND HILAR STRUCTURES: Stable heart size and mediastinal structures. HEART AND VASCULAR STRUCTURES: Stable appearance. SUPPORT DEVICES: Endotracheal tube lies at the yvonne and should be withdrawn approximately 2 cm. Ti p of the NG tube is not identified but appears to be below the GE junction. BONES: No acute findings. OTHER: No other significant finding. IMPRESSION: Endotracheal tube is low in position in should be withdrawn approximately 2 cm. COMMENT: This report was called to Ashly Salinas, the patient's nurse at13:35 on 01/28/2018. TECHNICAL DOCUMENTATION: JOB ID: [id number] [employer]- All Rights Reserved Reading location - IP/workstation name: [email or web address]
[2018-01-28 13:56] LABS: POTASSIUM 3.9 mmol/L (3.6-5.0)
--- NOTE | 2018-01-28 14:08 | RADIOLOGY REPORT (SQ) ---
EXAM DESCRIPTION: CHEST SINGLE VIEW COMPLETED DATE/TIME: 01/28/2018 1:57 pm REASON FOR STUDY: ett adjustment COMPARISON: 01/28/2018 at 1317 hours. NUMBER OF VIEWS: One view. TECHNIQUE: Single frontal radiographic view of the chest acquired. LIMITATIONS: None. FINDINGS: LUNGS AND PLEURA: No opacities, masses or pneumothorax. No pleural effusion. MEDIASTINUM AND HILAR STRUCTURES: No masses or contour abnormality. HEART AND VASCULATURE: Cardiac enlargement. Vascular congestion. BONES: No acute findings. HARDWARE: The endotracheal tube has been repositioned and is now located with the tip 2.3 cm proximal to the yvonne. Nasogastric tube with the tip in the stomach. Hardware in the spine. OTHER: No other significant finding. IMPRESSION: SATISFACTORY POSITION OF THE ENDOTRACHEAL TUBE. TECHNICAL DOCUMENTATION: JOB ID: [id number] [employer]- All Rights Reserved Reading location - IP/workstation name: [email or web address]
[2018-01-28] MEDS ORDERED: ACETAMINOPHEN SOLN 325 MG/10.15 ML UDCUP ONE (14:16)
[2018-01-28] MEDS: MORPHINE SULFATE 10 MG/ML INJ IV PRN ×2 (14:21→23:29)
--- NOTE | 2018-01-28 20:47 | PDOC PROGRESS REPORT ---
Subjective Progress Note for:: 01/28/18 Subjective:: Patient seen by the bedside, she continues to require mechanical ventilation Reason For Visit: ACUTE RESPIRATORY FAILURE, BILATERAL PNEUMONIA Physical Exam Vital Signs: Temp Pulse Resp BP Pulse Ox 100.4 F 95 18 105/48 L 96 01/28/18 18:09 01/28/18 19:31 01/28/18 18:09 01/28/18 18:09 01/28/18 18:09 Intake & Output 01/27/18 01/28/18 01/29/18 06:59 06:59 06:59 Intake Total 3318 3985 4100 Output Total 2025 1000 875 Balance 1293 2985 3225 Weight 69 kg 72.484 kg Eye exam: PRESENT: PERRLA Respiratory exam: PRESENT: rhonchi Cardiovascular exam: PRESENT: +S1, +S2 GI/Abdominal exam: PRESENT: soft Neurological exam: PRESENT: alert Results Laboratory Results: 01/28/18 03:49 01/28/18 17:50 01/28/18 01/28/18 01/28/18 03:49 03:49 06:30 WBC 6.0 RBC 3.00 L Hgb 8.9 L Hct 26.1 L MCV 87 MCH 29.5 MCHC 33.9 RDW 15.2 H Plt Count 133 L Seg Neutrophils % 70.9 Lymphocytes % 14.9 Monocytes % 9.5 Eosinophils % 3.9 Basophils % 0.8 Absolute Neutrophils 4.3 Absolute Lymphocytes 0.9 Absolute Monocytes 0.6 Absolute Eosinophils 0.2 Absolute Basophils 0.0 Carbonic Acid 1.15 HCO3/H2CO3 Ratio 26:1 ABG pH 7.52 H ABG pCO2 38.2 ABG pO2 59.6 L ABG HCO3 30.1 H ABG O2 Saturation 93.2 L ABG Base Excess 6.8 FiO2 60% Sodium 141.8 Potassium 2.9 L* Chloride 103 Carbon Dioxide 30 Anion Gap 9 BUN 12 Creatinine 0.57 Est GFR ( Amer) > 60 Est GFR (Non-Af Amer) > 60 Glucose 101 Calcium 8.1 L Magnesium 1.9 Triglycerides 182 H 01/28/18 01/28/18 13:07 17:50 WBC RBC Hgb Hct MCV MCH MCHC RDW Plt Count Seg Neutrophils % Lymphocytes % Monocytes % Eosinophils % Basophils % Absolute Neutrophils Absolute Lymphocytes Absolute Monocytes Absolute Eosinophils Absolute Basophils Carbonic Acid HCO3/H2CO3 Ratio ABG pH ABG pCO2 ABG pO2 ABG HCO3 ABG O2 Saturation ABG Base Excess FiO2 Sodium 143.6 Potassium 3.9 D 3.9 Chloride 103 Carbon Dioxide 31 H Anion Gap 10 BUN 11 Creatinine 0.60 Est GFR ( Amer) > 60 Est GFR (Non-Af Amer) > 60 Glucose 117 H Calcium 8.0 L Magnesium Triglycerides 01/24/18 23:22 Blood Blood Culture - Final Staphylococcus Epidermidis 01/24/18 01/25/18 01/25/18 23:22 05:58 05:58 Creatine Kinase < 20 L CK-MB (CK-2) 1.51 1.15 Troponin I < 0.012 < 0.012 01/25/18 01/25/18 11:09 11:09 Creatine Kinase < 20 L CK-MB (CK-2) 0.57 Troponin I < 0.012 Impressions: Chest X-Ray 01/28/18 13:31 IMPRESSION: SATISFACTORY POSITION OF THE ENDOTRACHEAL TUBE. Assessment & Plan - Diagnosis (1) Acute respiratory failure with hypoxia and hypercapnia Is this a current diagnosis for this admission?: Yes (2) Bilateral pneumonia Qualifiers: Pneumonia type: due to unspecified organism Lung location: unspecified part of lung Qualified Code(s): J18.9 - Pneumonia, unspecified organism Is this a current diagnosis for this admission?: Yes (3) Sepsis Qualifiers: Sepsis type: sepsis due to unspecified organism Qualified Code(s): A41.9 - Sepsis, unspecified organism Is this a current diagnosis for this admission?: Yes (4) Post-polio syndrome Is this a current diagnosis for this admission?: Yes (5) Scoliosis (and kyphoscoliosis), idiopathic Is this a current diagnosis for this admission?: Yes (6) Hypokalemia Is this a current diagnosis for this admission?: Yes - Plan Summary Plan Summary: Continue vent support
[2018-01-28] MEDS: METOPROLOL TARTRATE 25 MG TABLET GT SCH (21:06)
--- NOTE | 2018-01-28 21:11 | PROGRESS NOTE E ---
Progress Note NAME: MITCH ORELLANA : 1950 AGE: 68Y DATE: 01/28/2018 ROOM: 607 SUBJECTIVE: The patient is a 68-year-old female who came in with acute respiratory failure requiring invasive mechanical ventilation with pneumonia bilateral and pulmonary edema. The patient is spiking a fever today to 100.4 degrees Fahrenheit with a T-max of 101.5 degrees Fahrenheit. The patient has a moderate amount of endotracheal tube secretions which are whitish-yellow to whitish. No vomiting noted. The patient treated OT tube feeding, had 2 soft bowel movements. No vomiting noted. OBJECTIVE: GENERAL: The patient appeared to be sedated, febrile, not in acute respiratory distress. VITAL SIGNS: Blood pressure of 110/48, temperature is 100.4 with a T-max of 101.5, heart rate of 95, respiratory rate of 18, saturation is 96% on 40% FiO2, tidal volume 350, pressure support of 10, PEEP of 5. EYES: No jaundice or pallor. EARS, NOSE, AND THROAT: No ear drainage noted. No nasal discharge. CHEST AND LUNGS: No wheezing, no rhonchi, no coarse crackles. CARDIOVASCULAR: S1, S2 distinct. Normal rate and regular rhythm. ABDOMEN: Hypoactive bowel sounds, soft and slightly distended. EXTREMITIES: No joint swelling, no cellulitis. LABORATORY DATA: CBC done today, this morning, showed a white count of 6, hemoglobin of 8.9, hematocrit is 36.1, platelet count of 133. Blood gas today showed pH of 7.52, pCO2 of 38.2, pO2 of 59.6, and an ABG oxygen saturation of 93.2. Chemistry done this morning showed sodium is 143, potassium is 3.9, chloride 103, CO2 is 31, BUN is 11, creatinine 0.6, glucose 117, and calcium is 8. ASSESSMENT: 1. ACUTE RESPIRATORY FAILURE REQUIRING INVASIVE MECHANICAL VENTILATION. 2. PULMONARY INFILTRATE BILATERALLY, MOST LIKELY DUE TO MORE PULMONARY EDEMA AND CONCOMITANT PNEUMONIA. PLAN: 1. Continue the Zosyn and IV vancomycin. 2. We will continue ventilator support and nutritional support. DICTATING PHYSICIAN: ALPA GARCIA MD,ANNETTE,MPH [id number] PHY#: [id number] ID: [id number] JOB#: [id number] ACCT: [id number] cc: > MTDD
[2018-01-28] MEDS ORDERED: IPRATROPIUM/ALBUTEROL 0.5-2.5 MG/3 ML AMPUL NEB SCH (22:00)
[2018-01-28 22:32] LABS: ABSOLUTE EOSINOPHILS # (AUTO) 0.2 10^3/uL (0.0-0.6); ABSOLUTE LYMPHOCYTES (AUTO) 0.9 10^3/uL (0.5-4.7); ABSOLUTE MONOCYTES (AUTO) 0.6 10^3/uL (0.1-1.4); ABSOLUTE NEUT (AUTO) 4.3 10^3/uL (1.7-8.2); BASOPHILS % (AUTO) 0.4 % (0-2); HEMATOCRIT 27.7 % (36.0-47.0); HEMOGLOBIN 9.3 g/dL (12.0-15.5); LYMPHOCYTES % (AUTO) 14.6 % (13-45); MEAN CORPUSCULAR HEMOGLOBIN 29.1 pg (27.0-33.4); MEAN CORPUSCULAR HGB CONC 33.6 g/dL (32.0-36.0); MEAN CORPUSCULAR VOLUME 87 fl (80-97); MONOCYTES % (AUTO) 10.6 % (3-13); PLATELET COUNT 137 10^3/uL (150-450); RED BLOOD COUNT 3.19 10^6/uL (3.72-5.28); RED CELL DISTRIBUTION WIDTH 15.3 % (11.5-14.0); SEGMENTED NEUTROPHILS % (AUTO) 70.4 % (42-78); TOTAL CELLS COUNTED % (AUTO) 100 %; WHITE BLOOD COUNT 6.1 10^3/uL (4.0-10.5)
[2018-01-28] MEDS: ACETAMINOPHEN SOLN 325 MG/10.15 ML UDCUP GT PRN (23:48)
[2018-01-29] MEDS: IPRATROPIUM/ALBUTEROL 0.5-2.5 MG/3 ML AMPUL NEB SCH ×4 (00:39→23:48)
[2018-01-29] MEDS: PIPERACILLIN SODIUM/TAZOBACTAM 3.375 GM in NORMAL SALINE 100 ML IV SCH ×4 (03:12→21:36)
[2018-01-29] MEDS: PROPOFOL 1,000 MG/100 ML INFUS..BTL IV PRN ×3 (03:22→17:42)
[2018-01-29] MEDS: LANSOPRAZOLE 30 MG TAB.RAP.DR PO SCH ×2 (05:12→16:11)
[2018-01-29] MEDS: HEPARIN SOD (PORCINE) 5,000 UNIT/ML 1 ML SYRINGE SUBCUT SCH ×3 (05:12→21:55)
[2018-01-29] MEDS: VANCOMYCIN HCL 1,250 MG in DEXTROSE 5%-WATER 250 ML IV SCH (05:38)
[2018-01-29 05:44] LABS: ABSOLUTE EOSINOPHILS # (AUTO) 0.3 10^3/uL (0.0-0.6); ABSOLUTE LYMPHOCYTES (AUTO) 0.8 10^3/uL (0.5-4.7); ABSOLUTE MONOCYTES (AUTO) 0.8 10^3/uL (0.1-1.4); ABSOLUTE NEUT (AUTO) 3.9 10^3/uL (1.7-8.2); BASOPHILS % (AUTO) 0.5 % (0-2); EOSINOPHILS % (AUTO) 4.6 % (0-6); HEMATOCRIT 27.6 % (36.0-47.0); HEMOGLOBIN 9.2 g/dL (12.0-15.5); LYMPHOCYTES % (AUTO) 13.3 % (13-45); MEAN CORPUSCULAR HGB CONC 33.5 g/dL (32.0-36.0); MEAN CORPUSCULAR VOLUME 87 fl (80-97); MONOCYTES % (AUTO) 13.8 % (3-13); PLATELET COUNT 139 10^3/uL (150-450); RED BLOOD COUNT 3.19 10^6/uL (3.72-5.28); RED CELL DISTRIBUTION WIDTH 15.4 % (11.5-14.0); SEGMENTED NEUTROPHILS % (AUTO) 67.8 % (42-78); TOTAL CELLS COUNTED % (AUTO) 100 %; WHITE BLOOD COUNT 5.7 10^3/uL (4.0-10.5)
[2018-01-29 06:06] LABS: ANION GAP 10 (5-19); BLOOD UREA NITROGEN 11 mg/dL (7-20); CALCIUM 7.7 mg/dL (8.4-10.2); CARBON DIOXIDE 29 mmol/L (22-30); CHLORIDE 104 mmol/L (98-107); GLUCOSE 120 mg/dL (75-110); POTASSIUM 3.6 mmol/L (3.6-5.0); SODIUM 142.5 mmol/L (137-145)
[2018-01-29 06:10] LABS: VANCOMYCIN,TROUGH 21.8 ug/mL (5.0-20.0)
[2018-01-29 06:29] LABS: ARTERIAL BLOOD BASE EXCESS 2.7 mmol/L; ARTERIAL BLOOD H2CO3 1.37 mmol/L (1.05-1.35); ARTERIAL BLOOD HCO3 27.9 mmol/L (20-24); ARTERIAL BLOOD O2 SATURATION 94.8 % (94-98); ARTERIAL BLOOD PCO2 45.6 mmHg (35-45); ARTERIAL BLOOD PO2 73.6 mmHg (80-100); ARTERIAL BLOOD TOTAL CO2 29.3 mmol/L (21-25)
[2018-01-29 06:30] LABS: ARTERIAL BLOOD FIO2 40%
--- NOTE | 2018-01-29 07:21 | RADIOLOGY REPORT (SQ) ---
CLINICAL HISTORY: ON VENTILATOR COMPARISON: January 28 2018. TECHNIQUE: XR CHEST 1 VIEW 01/29/2018 5:00 AM CDT FINDINGS: Cardiac silhouette is enlarged. There are bilateral consolidations. Single metallic apple was used to transfix the thoracic spine. There are deformities of the left lateral ribs. There is no pleural effusion. There is no pneumothorax. There are no acute osseous findings. Endotracheal and nasogastric tubes are unchanged. IMPRESSION: No change.
[2018-01-29] MEDS: METOPROLOL TARTRATE 25 MG TABLET GT SCH (09:45)
[2018-01-29] MEDS: DEXTROSE 5%-1/2 NORMAL SALINE 1,000 ML IV PRN (09:51)
[2018-01-29] MEDS: LORAZEPAM 24 MG/ D5W 240 ML IV PRN (09:53)
[2018-01-29] MEDS: ACETAMINOPHEN SOLN 325 MG/10.15 ML UDCUP GT PRN (15:33)
[2018-01-29] MEDS ORDERED: METOPROLOL TARTRATE PF/INJ 5 MG/5 ML SDV IV ONE (16:04)
--- NOTE | 2018-01-29 17:44 | PDOC PROGRESS REPORT ---
Subjective Progress Note for:: 01/29/18 Subjective:: Patient seen by the bedside, she continues to require mechanical ventilation Reason For Visit: ACUTE RESPIRATORY FAILURE, BILATERAL PNEUMONIA Physical Exam Vital Signs: Temp Pulse Resp BP Pulse Ox 99.9 F 102 H 18 115/56 L 95 01/29/18 17:10 01/29/18 15:20 01/29/18 17:10 01/29/18 17:10 01/29/18 17:10 Intake & Output 01/28/18 01/29/18 01/30/18 06:59 06:59 06:59 Intake Total 3985 4626 1963 Output Total 1000 1645 1450 Balance 2985 2981 513 Weight 72.484 kg 72.3 kg Eye exam: PRESENT: PERRLA Respiratory exam: PRESENT: decreased breath sounds, rhonchi Cardiovascular exam: PRESENT: +S1, +S2 GI/Abdominal exam: PRESENT: soft Neurological exam: PRESENT: other - Sedated Results Laboratory Results: 01/29/18 05:36 01/29/18 05:36 01/28/18 01/28/18 01/29/18 17:50 22:25 05:36 WBC 6.1 RBC 3.19 L Hgb 9.3 L Hct 27.7 L MCV 87 MCH 29.1 MCHC 33.6 RDW 15.3 H Plt Count 137 L Seg Neutrophils % 70.4 Lymphocytes % 14.6 Monocytes % 10.6 Eosinophils % 4.0 Basophils % 0.4 Absolute Neutrophils 4.3 Absolute Lymphocytes 0.9 Absolute Monocytes 0.6 Absolute Eosinophils 0.2 Absolute Basophils 0.0 Carbonic Acid HCO3/H2CO3 Ratio ABG pH ABG pCO2 ABG pO2 ABG HCO3 ABG O2 Saturation ABG Base Excess FiO2 Sodium 142.5 Potassium 3.9 3.6 Chloride 104 Carbon Dioxide 29 Anion Gap 10 BUN 11 Creatinine 0.63 Est GFR ( Amer) > 60 Est GFR (Non-Af Amer) > 60 Glucose 120 H Calcium 7.7 L Magnesium 2.2 01/29/18 01/29/18 05:36 06:03 WBC 5.7 RBC 3.19 L Hgb 9.2 L Hct 27.6 L MCV 87 MCH 29.0 MCHC 33.5 RDW 15.4 H Plt Count 139 L Seg Neutrophils % 67.8 Lymphocytes % 13.3 Monocytes % 13.8 H Eosinophils % 4.6 Basophils % 0.5 Absolute Neutrophils 3.9 Absolute Lymphocytes 0.8 Absolute Monocytes 0.8 Absolute Eosinophils 0.3 Absolute Basophils 0.0 Carbonic Acid 1.37 H HCO3/H2CO3 Ratio 20:1 ABG pH 7.40 ABG pCO2 45.6 H ABG pO2 73.6 L ABG HCO3 27.9 H ABG O2 Saturation 94.8 ABG Base Excess 2.7 FiO2 40% Sodium Potassium Chloride Carbon Dioxide Anion Gap BUN Creatinine Est GFR ( Amer) Est GFR (Non-Af Amer) Glucose Calcium Magnesium 01/24/18 23:22 Blood Blood Culture - Final Staphylococcus Epidermidis 01/24/18 01/25/18 01/25/18 23:22 05:58 05:58 Creatine Kinase < 20 L CK-MB (CK-2) 1.51 1.15 Troponin I < 0.012 < 0.012 01/25/18 01/25/18 11:09 11:09 Creatine Kinase < 20 L CK-MB (CK-2) 0.57 Troponin I < 0.012 Impressions: Chest X-Ray 01/29/18 05:00 IMPRESSION: No change. Assessment & Plan - Diagnosis (1) Acute respiratory failure with hypoxia and hypercapnia Is this a current diagnosis for this admission?: Yes (2) Bilateral pneumonia Qualifiers: Pneumonia type: due to unspecified organism Lung location: unspecified part of lung Qualified Code(s): J18.9 - Pneumonia, unspecified organism Is this a current diagnosis for this admission?: Yes (3) Sepsis Qualifiers: Sepsis type: sepsis due to unspecified organism Qualified Code(s): A41.9 - Sepsis, unspecified organism Is this a current diagnosis for this admission?: Yes (4) Post-polio syndrome Is this a current diagnosis for this admission?: Yes (5) Scoliosis (and kyphoscoliosis), idiopathic Is this a current diagnosis for this admission?: Yes (6) Hypokalemia Is this a current diagnosis for this admission?: Yes Plan: Replace potassium - Plan Summary Plan Summary: Continue mechanical ventilation all other supportive care
--- NOTE | 2018-01-29 21:11 | PROGRESS NOTE E ---
Progress Note NAME: MITCH ORELLANA : 1950 AGE: 68Y DATE: 01/29/2018 ROOM: 607 SUBJECTIVE: The patient is a 68-year-old female who came in with acute respiratory failure requiring invasive mechanical ventilation, treated for pneumonia and severe sepsis. The patient has been still spiking a temperature to 100.2 degrees Fahrenheit over the last 24 hours. Was given Tylenol p.r.n. Over the last 24 hours the patient still has endotracheal tube secretions, mild to moderate, requiring every 2 hours of suctioning. The patient tolerated OG tube feeding at 30 mL per hour. Has low gastric residual. No vomiting noted. No diarrhea. Blood pressure has been stable. OBJECTIVE: GENERAL: The patient appears sedated, afebrile, not in apparent acute respiratory distress. VITAL SIGNS: Temperature 99.9, T-max of 100.4, blood pressure is 127/66, pulse rate of 102, respiratory rate of 18, saturation is 93% on 40% FiO2, rate of 18, tidal volume of 350 mL, pressure support of 10, and PEEP of 6. Minute ventilation is 8.4 and peak airway pressure of 24-25. EYES: No jaundice or pallor. EARS, NOSE, AND THROAT: No ear drainage noted. No nasal discharge. Oral tracheal tube is in place. CHEST AND LUNGS: No wheezing, no rhonchi, no coarse crackles. CARDIOVASCULAR: S1, S2 distinct. Normal rate and regular rhythm. ABDOMEN: Flabby, positive bowel sounds, soft, and nondistended. EXTREMITIES: No joint swelling, no cellulitis. LABORATORY DATA: CBC done today showed a white count of 5.7, hemoglobin is 9.2, hematocrit is 37.6, platelet count is 139. ABG done today showed pH of 7.4, pCO2 is 45.6, pO2 is 73.6, bicarb 27.9. Chemistry showed sodium is 142, potassium 3.6, chloride 104, CO2 is 29, BUN is 7, creatinine 0.63, glucose 120, and calcium 7.7. ASSESSMENT: 1. ACUTE RESPIRATORY FAILURE REQUIRING INVASIVE MECHANICAL VENTILATION, CURRENTLY RECEIVING MECHANICAL VENTILATION. The patient is not ready to be extubated. The patient continues to have spiking temperature to more than 100 degrees Fahrenheit. 2. PNEUMONIA, CONCOMITANT. 3. PULMONARY EDEMA. Apparently stable. 4. SEVERE SEPSIS. PLAN/RECOMMENDATION: 1. We will continue the same IV antibiotics; IV vancomycin, IV Zosyn for now. 2. Resend a sputum culture. 3. We will continue to optimize ventilatory support and nutritional support. 4. We will checked the CBC, chemistry, ABG, and chest x-ray again tomorrow. DICTATING PHYSICIAN: ALPA GARCIA MD,ANNETTE,MPH [id number] [id number] PHY#: [id number] ID: [id number] JOB#: [id number] ACCT: [id number] cc: > MTDD
[2018-01-29] MEDS: METOPROLOL TARTRATE 50 MG TABLET GT SCH (21:55)
[2018-01-30] MEDS: PROPOFOL 1,000 MG/100 ML INFUS..BTL IV PRN ×4 (00:50→18:54)
[2018-01-30] MEDS: MORPHINE SULFATE 10 MG/ML INJ IV PRN (02:02)
[2018-01-30] MEDS: PIPERACILLIN SODIUM/TAZOBACTAM 3.375 GM in NORMAL SALINE 100 ML IV SCH ×4 (04:06→21:30)
[2018-01-30 04:08] LABS: ABSOLUTE EOSINOPHILS # (AUTO) 0.4 10^3/uL (0.0-0.6); ABSOLUTE LYMPHOCYTES (AUTO) 0.7 10^3/uL (0.5-4.7); ABSOLUTE MONOCYTES (AUTO) 1.2 10^3/uL (0.1-1.4); ABSOLUTE NEUT (AUTO) 4.4 10^3/uL (1.7-8.2); BASOPHILS % (AUTO) 0.3 % (0-2); EOSINOPHILS % (AUTO) 5.3 % (0-6); HEMATOCRIT 29.3 % (36.0-47.0); HEMOGLOBIN 9.7 g/dL (12.0-15.5); LYMPHOCYTES % (AUTO) 10.7 % (13-45); MEAN CORPUSCULAR HEMOGLOBIN 28.5 pg (27.0-33.4); MEAN CORPUSCULAR VOLUME 87 fl (80-97); MONOCYTES % (AUTO) 18.5 % (3-13); PLATELET COUNT 158 10^3/uL (150-450); RED BLOOD COUNT 3.39 10^6/uL (3.72-5.28); RED CELL DISTRIBUTION WIDTH 15.5 % (11.5-14.0); SEGMENTED NEUTROPHILS % (AUTO) 65.2 % (42-78); TOTAL CELLS COUNTED % (AUTO) 100 %; WHITE BLOOD COUNT 6.7 10^3/uL (4.0-10.5)
[2018-01-30 04:42] LABS: ANION GAP 7 (5-19); BLOOD UREA NITROGEN 9 mg/dL (7-20); CARBON DIOXIDE 31 mmol/L (22-30); CHLORIDE 106 mmol/L (98-107); GLUCOSE 119 mg/dL (75-110); POTASSIUM 3.9 mmol/L (3.6-5.0); SODIUM 144.1 mmol/L (137-145)
[2018-01-30] MEDS: LORAZEPAM 24 MG/ D5W 240 ML IV PRN (05:50)
[2018-01-30] MEDS: VANCOMYCIN HCL 750 MG in DEXTROSE 5%-WATER 250 ML IV SCH ×2 (05:53→17:23)
[2018-01-30] MEDS: HEPARIN SOD (PORCINE) 5,000 UNIT/ML 1 ML SYRINGE SUBCUT SCH ×3 (05:53→21:31)
[2018-01-30] MEDS: LANSOPRAZOLE 30 MG TAB.RAP.DR PO SCH ×2 (05:54→17:22)
[2018-01-30 06:25] LABS: ARTERIAL BLOOD BASE EXCESS 1.6 mmol/L; ARTERIAL BLOOD H2CO3 1.32 mmol/L (1.05-1.35); ARTERIAL BLOOD HCO3 26.7 mmol/L (20-24); ARTERIAL BLOOD O2 SATURATION 93.9 % (94-98); ARTERIAL BLOOD PO2 69.5 mmHg (80-100); ARTERIAL BLOOD TOTAL CO2 28.1 mmol/L (21-25)
[2018-01-30 06:27] LABS: ARTERIAL BLOOD FIO2 35%
--- NOTE | 2018-01-30 07:38 | RADIOLOGY REPORT (SQ) ---
CLINICAL HISTORY: ett/ogt/pna/pulm edema COMPARISON: 05/2511/22/2017. TECHNIQUE: XR CHEST 1 VIEW 01/30/2018 6:00 AM CDT FINDINGS: Cardiac silhouette is enlarged. Patchy bilateral consolidations remain. There are pleural effusions. There are deformities of the left lateral chest wall. There is no pneumothorax. There are no acute osseous findings. Endotracheal tube and nasogastric tubes are unchanged. IMPRESSION: No change.
[2018-01-30] MEDS: IPRATROPIUM/ALBUTEROL 0.5-2.5 MG/3 ML AMPUL NEB SCH (08:13)
[2018-01-30] MEDS: DEXTROSE 5%-1/2 NORMAL SALINE 1,000 ML IV PRN (08:57)
[2018-01-30] MEDS: METOPROLOL TARTRATE PF/INJ 5 MG/5 ML SDV IV PRN (08:58)
[2018-01-30] MEDS: METOPROLOL TARTRATE 50 MG TABLET GT SCH ×2 (09:00→21:31)
[2018-01-30] MEDS: IPRATROPIUM BROMIDE 0.02% NEB 0.5 MG/2.5 ML AMPUL NEB SCH ×2 (13:51→20:17)
[2018-01-30] MEDS: LEVALBUTEROL HCL NEB 1.25 MG/3 ML AMPUL NEB SCH ×2 (13:51→20:17)
[2018-01-30 14:59] LABS: ARTERIAL BLOOD BASE EXCESS 2.1 mmol/L; ARTERIAL BLOOD H2CO3 1.59 mmol/L (1.05-1.35); ARTERIAL BLOOD HCO3 28.5 mmol/L (20-24); ARTERIAL BLOOD O2 SATURATION 89.8 % (94-98); ARTERIAL BLOOD PCO2 52.9 mmHg (35-45); ARTERIAL BLOOD PH 7.35 (7.35-7.45); ARTERIAL BLOOD PO2 60.7 mmHg (80-100); ARTERIAL BLOOD TOTAL CO2 30.2 mmol/L (21-25)
[2018-01-30 15:00] LABS: ARTERIAL BLOOD FIO2 40%
--- NOTE | 2018-01-30 15:19 | PDOC PROGRESS REPORT ---
Subjective Progress Note for:: 01/27/18 Subjective:: Patient seen by the bedside, she continues to require mechanical ventilation Reason For Visit: ACUTE RESPIRATORY FAILURE, BILATERAL PNEUMONIA Physical Exam Vital Signs: Temp Pulse Resp BP Pulse Ox 99.7 F 69 18 114/57 L 94 01/27/18 18:09 01/27/18 08:00 01/27/18 18:09 01/27/18 18:09 01/27/18 18:09 Intake & Output 01/26/18 01/27/18 01/28/18 06:59 06:59 06:59 Intake Total 3089 3318 2016 Output Total 2619 2024 275 Balance 469 1293 1742 Weight 67.1 kg 69 kg Eye exam: PRESENT: PERRLA Respiratory exam: PRESENT: crackles, rhonchi Cardiovascular exam: PRESENT: +S1, +S2 GI/Abdominal exam: PRESENT: soft Neurological exam: PRESENT: alert Results Laboratory Results: 01/27/18 04:05 01/27/18 04:05 01/27/18 01/27/18 01/27/18 04:05 04:05 08:26 WBC 6.3 RBC 3.18 L Hgb 9.6 L Hct 28.2 L MCV 89 MCH 30.2 MCHC 34.0 RDW 15.2 H Plt Count 122 L Seg Neutrophils % 71.5 Lymphocytes % 13.0 Monocytes % 12.4 Eosinophils % 2.7 Basophils % 0.4 Absolute Neutrophils 4.5 Absolute Lymphocytes 0.8 Absolute Monocytes 0.8 Absolute Eosinophils 0.2 Absolute Basophils 0.0 Carbonic Acid 1.93 H HCO3/H2CO3 Ratio 18:1 ABG pH 7.36 ABG pCO2 64.2 H ABG pO2 78.3 L ABG HCO3 35.6 H ABG O2 Saturation 94.7 ABG Base Excess 8.6 FiO2 60% Sodium 141.8 Potassium 3.6 Chloride 102 Carbon Dioxide 36 H Anion Gap 4 L BUN 12 Creatinine 0.54 Est GFR ( Amer) > 60 Est GFR (Non-Af Amer) > 60 Glucose 99 Calcium 8.1 L Magnesium 2.0 Total Bilirubin 0.4 AST 18 ALT 27 Alkaline Phosphatase 64 Total Protein 4.7 L Albumin 2.4 L 01/27/18 17:00 WBC RBC Hgb Hct MCV MCH MCHC RDW Plt Count Seg Neutrophils % Lymphocytes % Monocytes % Eosinophils % Basophils % Absolute Neutrophils Absolute Lymphocytes Absolute Monocytes Absolute Eosinophils Absolute Basophils Carbonic Acid 1.41 H HCO3/H2CO3 Ratio 21:1 ABG pH 7.43 ABG pCO2 46.9 H ABG pO2 114.6 H ABG HCO3 30.6 H ABG O2 Saturation 98.3 H ABG Base Excess 5.6 FiO2 100% Sodium Potassium Chloride Carbon Dioxide Anion Gap BUN Creatinine Est GFR ( Amer) Est GFR (Non-Af Amer) Glucose Calcium Magnesium Total Bilirubin AST ALT Alkaline Phosphatase Total Protein Albumin 01/25/18 01:50 Sputum Gram Stain - Final 01/25/18 01:50 Sputum Sputum Culture - Final NORMAL CLAUS 01/24/18 01/25/18 01/25/18 23:22 05:58 05:58 Creatine Kinase < 20 L CK-MB (CK-2) 1.51 1.15 Troponin I < 0.012 < 0.012 01/25/18 01/25/18 11:09 11:09 Creatine Kinase < 20 L CK-MB (CK-2) 0.57 Troponin I < 0.012 Impressions: Chest X-Ray 01/27/18 00:00 IMPRESSION: Patchy bilateral airspace disease unchanged from 01/26/2018 Assessment & Plan - Diagnosis (1) Acute respiratory failure with hypoxia and hypercapnia Is this a current diagnosis for this admission?: Yes (2) Bilateral pneumonia Qualifiers: Pneumonia type: due to unspecified organism Lung location: unspecified part of lung Qualified Code(s): J18.9 - Pneumonia, unspecified organism Is this a current diagnosis for this admission?: Yes (3) Sepsis Qualifiers: Sepsis type: sepsis due to unspecified organism Qualified Code(s): A41.9 - Sepsis, unspecified organism Is this a current diagnosis for this admission?: Yes (4) Post-polio syndrome Is this a current diagnosis for this admission?: Yes (5) Scoliosis (and kyphoscoliosis), idiopathic Is this a current diagnosis for this admission?: Yes (6) Hypokalemia Is this a current diagnosis for this admission?: Yes - Plan Summary Plan Summary: Continue antibiotic changes made to the vent, pulmonary on board
--- NOTE | 2018-01-30 15:21 | PDOC PROGRESS REPORT ---
Subjective Progress Note for:: 01/30/18 Subjective:: Patient seen by the bedside, she continues to require vent support,, had weaning trials today Reason For Visit: ACUTE RESPIRATORY FAILURE, BILATERAL PNEUMONIA Physical Exam Vital Signs: Temp Pulse Resp BP Pulse Ox 98.8 F 81 22 H 147/86 H 92 01/30/18 14:01 01/30/18 13:51 01/30/18 14:01 01/30/18 14:00 01/30/18 14:01 Intake & Output 01/29/18 01/30/18 01/31/18 06:59 06:59 06:59 Intake Total 4626 3023 2046 Output Total 1645 2775 725 Balance 2981 248 1321 Weight 72.3 kg 73.7 kg General appearance: PRESENT: no acute distress Eye exam: PRESENT: PERRLA Respiratory exam: PRESENT: clear to auscultation ryley Cardiovascular exam: PRESENT: +S1, +S2 GI/Abdominal exam: PRESENT: soft Neurological exam: PRESENT: alert Results Laboratory Results: 01/30/18 03:58 01/30/18 03:58 01/30/18 01/30/18 01/30/18 03:58 03:58 06:15 WBC 6.7 RBC 3.39 L Hgb 9.7 L Hct 29.3 L MCV 87 MCH 28.5 MCHC 33.0 RDW 15.5 H Plt Count 158 Seg Neutrophils % 65.2 Lymphocytes % 10.7 L Monocytes % 18.5 H Eosinophils % 5.3 Basophils % 0.3 Absolute Neutrophils 4.4 Absolute Lymphocytes 0.7 Absolute Monocytes 1.2 Absolute Eosinophils 0.4 Absolute Basophils 0.0 Carbonic Acid 1.32 HCO3/H2CO3 Ratio 20:1 ABG pH 7.40 ABG pCO2 44.0 ABG pO2 69.5 L ABG HCO3 26.7 H ABG O2 Saturation 93.9 L ABG Base Excess 1.6 FiO2 35% Sodium 144.1 Potassium 3.9 Chloride 106 Carbon Dioxide 31 H Anion Gap 7 BUN 9 Creatinine 0.57 Est GFR ( Amer) > 60 Est GFR (Non-Af Amer) > 60 Glucose 119 H Calcium 8.0 L Magnesium 2.4 H 01/30/18 14:30 WBC RBC Hgb Hct MCV MCH MCHC RDW Plt Count Seg Neutrophils % Lymphocytes % Monocytes % Eosinophils % Basophils % Absolute Neutrophils Absolute Lymphocytes Absolute Monocytes Absolute Eosinophils Absolute Basophils Carbonic Acid 1.59 H HCO3/H2CO3 Ratio 17:1 ABG pH 7.35 ABG pCO2 52.9 H ABG pO2 60.7 L ABG HCO3 28.5 H ABG O2 Saturation 89.8 L ABG Base Excess 2.1 FiO2 40% Sodium Potassium Chloride Carbon Dioxide Anion Gap BUN Creatinine Est GFR ( Amer) Est GFR (Non-Af Amer) Glucose Calcium Magnesium 01/27/18 10:10 Sputum Gram Stain - Final 01/27/18 10:10 Sputum Sputum Culture - Final NO GROWTH 3 DAYS 01/24/18 01/25/18 01/25/18 23:22 05:58 05:58 Creatine Kinase < 20 L CK-MB (CK-2) 1.51 1.15 Troponin I < 0.012 < 0.012 01/25/18 01/25/18 11:09 11:09 Creatine Kinase < 20 L CK-MB (CK-2) 0.57 Troponin I < 0.012 Impressions: Chest X-Ray 01/30/18 06:00 IMPRESSION: No change. Assessment & Plan - Diagnosis (1) Acute respiratory failure with hypoxia and hypercapnia Is this a current diagnosis for this admission?: Yes (2) Bilateral pneumonia Qualifiers: Pneumonia type: due to unspecified organism Lung location: unspecified part of lung Qualified Code(s): J18.9 - Pneumonia, unspecified organism Is this a current diagnosis for this admission?: Yes (3) Sepsis Qualifiers: Sepsis type: sepsis due to unspecified organism Qualified Code(s): A41.9 - Sepsis, unspecified organism Is this a current diagnosis for this admission?: Yes (4) Post-polio syndrome Is this a current diagnosis for this admission?: Yes (5) Scoliosis (and kyphoscoliosis), idiopathic Is this a current diagnosis for this admission?: Yes (6) Hypokalemia Is this a current diagnosis for this admission?: Yes - Plan Summary Plan Summary: Continue treatment
--- NOTE | 2018-01-30 15:36 | PROGRESS NOTE E ---
Progress Note NAME: MITCH ORELLANA : 1950 AGE: 68Y DATE: 01/30/2018 ROOM: 607 SUBJECTIVE: Patient is a 68-year-old female who came in acute respiratory failure requiring invasive mechanical ventilation for sepsis, pneumonia, pulmonary edema. Patient is tolerating her NG tube feeding. No vomiting noted. There were no fever spikes over the last 24 hours. Still watery stool. Has mild to moderate endotracheal tube secretions, slightly purulent. Patient had spontaneous breathing trial today, but did not tolerate it. Became tachycardic, tachypneic, after a few minutes of spontaneous breathing trial using SIMV rate of 2. Patient was placed back on current SIMV PRVC settings. OBJECTIVE: GENERAL: Patient appears sedated, afebrile. VITAL SIGNS: Not in apparent respiratory distress, with temperature of 99 degrees Fahrenheit, with a T-max of 99.9 degrees, heart rate of 84, blood pressure is 107/58, respiratory rate is 18, saturation is 95% on 35% FiO2, SIMV rate of 18, tidal volume of 350, pressure support of 10 above PEEP, and PEEP of 6. Peak airway pressure of 38 to 41, with ventilation of 6.2. Plateau pressure around 36 to 38. EYES: No jaundice or pallor. EARS, NOSE AND THROAT: No ear drainage. No nasal discharge. HEAD AND NECK: No scalp swelling. Neck supple. CHEST AND LUNGS: No wheezing, no rhonchi, no coarse crackles noted. CARDIOVASCULAR: S1, S2 distant. Normal rate and rhythm. ABDOMEN: Flabby. Positive bowel sounds. Soft, nondistended, nontender. EXTREMITIES: No joint swelling or cellulitis. LABORATORY DATA: CBC done today showed white count of 6.7, hemoglobin is 9.7, hematocrit is 39.3, platelet count is 158,000. ABGs done today show pH of 7.4, pCO2 of 44, pO2 of 69.5, with bicarb of 26.7. Chemistries done today showed sodium is 154.1, potassium is 3.9, chloride 106 and CO2 is 31. BUN is 9, creatinine 0.57. Glucose 119. Calcium is 8.8. *------* is 2.4. ASSESSMENT: 1. PATIENT WITH ACUTE RESPIRATORY FAILURE, REQUIRING INVASIVE MECHANICAL VENTILATION. Patient's peak airway pressures seem to be rising up to 14 on the ventilator on SIMV settings of tidal volume of 350, PEEP of 6, pressure support of 10 above PEEP, ventilator rate of 18 per minute. Patient has slight wheezing bilaterally, currently on DuoNeb nebulizer treatment every 8 hours. Currently not ready to be extubated. Patient failed spontaneous breathing trial this morning. 2. PNEUMONIA. 3. PULMONARY EDEMA. 4. UROSEPSIS. Appears to be improving. PLAN AND RECOMMENDATION: 1. Would continue spontaneous breathing trial every morning. 2. Will decrease the tidal volume to 310 mL, which is about 6.5 mL/g predicted body weight. Mineral body weight of the patient is 48 kg. Will increase the ventilatory rate to 22 per minute. Increase the FiO2 to 45% and titrate to give oxygen saturation 91% to 94%. Will perform the ABG in 1 hour. Patient's peak airway pressure setting went down to 31 to 35 cm of water pressure. Total pressure right now 27 to 28. 3. Will continue the current IV antibiotics and will continue to optimize the pressure support and ventilatory support. DICTATING PHYSICIAN: ALPA GARCIA MD,ANNETTE,MPH [id number] [id number] PHY#: [id number] ID: [id number] JOB#: [id number] ACCT: [id number] cc: > RAMAKRISHNA
[2018-01-30] MEDS: ACETAMINOPHEN SOLN 325 MG/10.15 ML UDCUP GT PRN (21:29)
[2018-01-31] MEDS: PROPOFOL 1,000 MG/100 ML INFUS..BTL IV PRN ×4 (01:23→21:03)
[2018-01-31] MEDS: PIPERACILLIN SODIUM/TAZOBACTAM 3.375 GM in NORMAL SALINE 100 ML IV SCH ×4 (02:32→21:04)
[2018-01-31] MEDS: IPRATROPIUM BROMIDE 0.02% NEB 0.5 MG/2.5 ML AMPUL NEB SCH ×4 (02:49→20:35)
[2018-01-31] MEDS: LEVALBUTEROL HCL NEB 1.25 MG/3 ML AMPUL NEB SCH ×4 (02:50→20:35)
[2018-01-31 03:55] LABS: ABSOLUTE EOSINOPHILS # (AUTO) 0.4 10^3/uL (0.0-0.6); ABSOLUTE LYMPHOCYTES (AUTO) 0.8 10^3/uL (0.5-4.7); ABSOLUTE MONOCYTES (AUTO) 0.9 10^3/uL (0.1-1.4); ABSOLUTE NEUT (AUTO) 3.8 10^3/uL (1.7-8.2); BASOPHILS % (AUTO) 0.5 % (0-2); EOSINOPHILS % (AUTO) 6.4 % (0-6); HEMATOCRIT 28.5 % (36.0-47.0); HEMOGLOBIN 9.4 g/dL (12.0-15.5); LYMPHOCYTES % (AUTO) 13.5 % (13-45); MEAN CORPUSCULAR VOLUME 88 fl (80-97); MONOCYTES % (AUTO) 14.5 % (3-13); PLATELET COUNT 191 10^3/uL (150-450); RED BLOOD COUNT 3.25 10^6/uL (3.72-5.28); RED CELL DISTRIBUTION WIDTH 15.2 % (11.5-14.0); SEGMENTED NEUTROPHILS % (AUTO) 65.1 % (42-78); TOTAL CELLS COUNTED % (AUTO) 100 %; WHITE BLOOD COUNT 5.9 10^3/uL (4.0-10.5)
[2018-01-31 04:20] LABS: ANION GAP 7 (5-19); BLOOD UREA NITROGEN 12 mg/dL (7-20); CALCIUM 8.2 mg/dL (8.4-10.2); CARBON DIOXIDE 29 mmol/L (22-30); CHLORIDE 108 mmol/L (98-107); GLUCOSE 99 mg/dL (75-110); POTASSIUM 3.9 mmol/L (3.6-5.0); SODIUM 144.4 mmol/L (137-145); TRIGLYCERIDES 164 mg/dL (<150)
[2018-01-31 05:25] LABS: ARTERIAL BLOOD BASE EXCESS 3.5 mmol/L; ARTERIAL BLOOD HCO3 27.1 mmol/L (20-24); ARTERIAL BLOOD O2 SATURATION 96.2 % (94-98); ARTERIAL BLOOD PCO2 36.5 mmHg (35-45); ARTERIAL BLOOD PH 7.49 (7.35-7.45); ARTERIAL BLOOD PO2 75.8 mmHg (80-100); ARTERIAL BLOOD TOTAL CO2 28.2 mmol/L (21-25)
[2018-01-31 05:26] LABS: ARTERIAL BLOOD FIO2 40%
[2018-01-31] MEDS: VANCOMYCIN HCL 750 MG in DEXTROSE 5%-WATER 250 ML IV SCH ×2 (05:27→17:16)
[2018-01-31] MEDS: HEPARIN SOD (PORCINE) 5,000 UNIT/ML 1 ML SYRINGE SUBCUT SCH ×3 (05:28→21:44)
[2018-01-31] MEDS: LANSOPRAZOLE 30 MG TAB.RAP.DR PO SCH ×2 (05:29→17:15)
[2018-01-31] MEDS: MORPHINE SULFATE 10 MG/ML INJ IV PRN ×2 (08:57→15:06)
[2018-01-31] MEDS: METOPROLOL TARTRATE 50 MG TABLET GT SCH ×2 (09:02→21:25)
[2018-01-31] MEDS ORDERED: GENTAMICIN SULFATE INJ 80 MG/2 ML VIAL IV SCH (09:15)
[2018-01-31] MEDS: GENTAMICIN SULFATE 100 MG in DEXTROSE 5%-WATER 100 ML IV SCH ×2 (10:54→21:43)
[2018-01-31] MEDS: DEXTROSE 5%-1/2 NORMAL SALINE 1,000 ML IV PRN (10:56)
--- NOTE | 2018-01-31 11:46 | RADIOLOGY REPORT (SQ) ---
EXAM DESCRIPTION: CHEST SINGLE VIEW COMPLETED DATE/TIME: 01/31/2018 6:29 am REASON FOR STUDY: respiratory failure COMPARISON: 01/30/2018. EXAM PARAMETERS: NUMBER OF VIEWS: One view. TECHNIQUE: Single frontal radiographic view of the chest acquired. RADIATION DOSE: NA LIMITATIONS: None. FINDINGS: LUNGS AND PLEURA: Diffuse airspace disease unchanged. MEDIASTINUM AND HILAR STRUCTURES: No masses. Contour normal. HEART AND VASCULAR STRUCTURES: Cardiomegaly unchanged. BONES: Chronic bony deformities. No acute findings. HARDWARE: Endotracheal tube and nasogastric tube. Hardware in the spine. OTHER: No other significant finding. IMPRESSION: NO CHANGE IN APPEARANCE OF THE CHEST. TECHNICAL DOCUMENTATION: JOB ID: [id number] [email or web address]- All Rights Reserved Reading location - IP/workstation name: [email or web address]
[2018-01-31 18:20] LABS: VANCOMYCIN,TROUGH 17.9 ug/mL (5.0-20.0)
--- NOTE | 2018-01-31 21:31 | PDOC PROGRESS REPORT ---
Subjective Progress Note for:: 01/31/18 Subjective:: Patient still on mechanical ventilation Reason For Visit: ACUTE RESPIRATORY FAILURE, BILATERAL PNEUMONIA Physical Exam Vital Signs: Temp Pulse Resp BP Pulse Ox 100.0 F 112 H 22 H 129/60 H 94 01/31/18 18:01 01/31/18 20:35 01/31/18 20:35 01/31/18 18:01 01/31/18 20:35 Intake & Output 01/30/18 01/31/18 02/01/18 06:59 06:59 06:59 Intake Total 3023 4970 562 Output Total 2775 1155 1475 Balance 248 2705 -913 Weight 73.7 kg 77.4 kg Eye exam: PRESENT: PERRLA Respiratory exam: PRESENT: rhonchi Cardiovascular exam: PRESENT: +S1, +S2 GI/Abdominal exam: PRESENT: soft Results Laboratory Results: 01/31/18 03:49 01/31/18 03:49 01/31/18 01/31/18 01/31/18 03:49 03:49 05:15 WBC 5.9 RBC 3.25 L Hgb 9.4 L Hct 28.5 L MCV 88 MCH 29.0 MCHC 33.0 RDW 15.2 H Plt Count 191 Seg Neutrophils % 65.1 Lymphocytes % 13.5 Monocytes % 14.5 H Eosinophils % 6.4 H Basophils % 0.5 Absolute Neutrophils 3.8 Absolute Lymphocytes 0.8 Absolute Monocytes 0.9 Absolute Eosinophils 0.4 Absolute Basophils 0.0 Carbonic Acid 1.10 HCO3/H2CO3 Ratio 24:1 ABG pH 7.49 H ABG pCO2 36.5 ABG pO2 75.8 L ABG HCO3 27.1 H ABG O2 Saturation 96.2 ABG Base Excess 3.5 FiO2 40% Sodium 144.4 Potassium 3.9 Chloride 108 H Carbon Dioxide 29 Anion Gap 7 BUN 12 Creatinine 0.60 Est GFR ( Amer) > 60 Est GFR (Non-Af Amer) > 60 Glucose 99 Calcium 8.2 L Magnesium 2.5 H Triglycerides 164 H 01/24/18 01/25/18 01/25/18 23:22 05:58 05:58 Creatine Kinase < 20 L CK-MB (CK-2) 1.51 1.15 Troponin I < 0.012 < 0.012 01/25/18 01/25/18 11:09 11:09 Creatine Kinase < 20 L CK-MB (CK-2) 0.57 Troponin I < 0.012 Impressions: Chest X-Ray 01/31/18 05:00 IMPRESSION: NO CHANGE IN APPEARANCE OF THE CHEST. Assessment & Plan - Diagnosis (1) Acute respiratory failure with hypoxia and hypercapnia Is this a current diagnosis for this admission?: Yes (2) Bilateral pneumonia Qualifiers: Pneumonia type: due to unspecified organism Lung location: unspecified part of lung Qualified Code(s): J18.9 - Pneumonia, unspecified organism Is this a current diagnosis for this admission?: Yes (3) Sepsis Qualifiers: Sepsis type: sepsis due to unspecified organism Qualified Code(s): A41.9 - Sepsis, unspecified organism Is this a current diagnosis for this admission?: Yes (4) Post-polio syndrome Is this a current diagnosis for this admission?: Yes (5) Scoliosis (and kyphoscoliosis), idiopathic Is this a current diagnosis for this admission?: Yes (6) Hypokalemia Is this a current diagnosis for this admission?: Yes - Plan Summary Plan Summary: Patient did poorly t today on weaning trials, continue treatment
--- NOTE | 2018-01-31 23:04 | RADIOLOGY REPORT (SQ) ---
EXAM DESCRIPTION: CT ABDOMEN PELVIS WITH IV CONTRAST COMPLETED DATE/TME: 01/31/2018 20:00 CLINICAL HISTORY: 68 years, Female, Intraabdominal infection;abd distension This exam was performed according to our departmental dose-optimization program which includes automated exposure control, adjustment of the mA and/or kVp according to patient size and/or use of iterative reconstruction technique where applicable. FINDINGS: Visualized lung bases demonstrate significant scoliosis. Bilateral lower lobe atelectatic changes. Liver, spleen, pancreas, gallbladder, adrenal glands and kidneys are within normal limits. No hydronephrosis or biliary dilatation. No dilated loops of bowel to suggest obstruction. Mild amount of fluid layering in the pelvis. Bladder is decompressed by Sweeney catheter. No abdominal or pelvic lymphadenopathy. Abdominal aorta is mildly calcified without aneurysm. Moderate diffuse subcutaneous edema. The appendix is normal. IMPRESSION: Mild fluid layering in the pelvis. No evidence for acute appendicitis.
[2018-01-31] MEDS: ACETAMINOPHEN SOLN 325 MG/10.15 ML UDCUP GT PRN (23:09)
[2018-02-01] MEDS: PROPOFOL 1,000 MG/100 ML INFUS..BTL IV PRN ×6 (01:58→22:13)
--- NOTE | 2018-02-01 02:06 | PROGRESS NOTE E ---
Progress Note NAME: MITCH ORELLANA : 1950 AGE: 68Y DATE: 01/31/2018 ROOM: 607 SUBJECTIVE: The patient is a 68-year-old female who came in acute respiratory failure requiring invasive mechanical ventilation, currently treated for pneumonia, pulmonary edema, and pleural edema. The patient continues to present with a spiking temperature to 100.1 to 100.6 degrees Fahrenheit. No vomiting noted. The patient still has watery stool. Stool sent for C. diff was negative x2. The patient tolerated the NG tube feeding very well. Has no central lines. The patient failed spontaneous breathing trial this morning. OBJECTIVE: GENERAL: The patient appeared to be sedated, not in acute respiratory distress. VITAL SIGNS: Febrile with temperature of 100 degrees Fahrenheit with a T-max of 100.6. Heart rate is 97, blood pressure is 129/62, respiratory rate is 22, saturation of 91-92%. EYES: No jaundice or pallor. EARS, NOSE, AND THROAT: No ear drainage. No nasal discharge. Orotracheal tube is in place. Orogastric tube is in place. CHEST AND LUNGS: No wheezing, no rhonchi, no coarse crackles. CARDIOVASCULAR: S1, S2 distinct. Normal rate and regular rhythm. ABDOMEN: Hypoactive bowel sounds, distended. Abdomen is said to be a bit more distended compared to yesterday. EXTREMITIES: No joint swelling, no cellulitis. LABORATORY DATA: CBC done today showed a white count of 5.9, hemoglobin is 9.4, hematocrit is 28.5, platelet count is 191. Blood gas is 7.49, pCO2 is 36.5, pO2 is 75.8 and ABG bicarb is 27.1. Chemistry showed sodium is 144, potassium is 3.9, chloride 108, CO2 is 29, BUN 12, creatinine 0.6, glucose is 99, calcium is 8.2, phosphorus is 2.5. IMAGING STUDIES: Chest x-ray done today showed pulmonary infiltrates bilaterally. The endotracheal tube seems to be in place. Small pleural effusion bilaterally could not be completely excluded. ASSESSMENT: 1. ACUTE RESPIRATORY FAILURE REQUIRING INVASIVE MECHANICAL VENTILATION. Currently the patient failed spontaneous breathing trial, not ready to be extubated or liberated from the mechanical ventilation. 2. FEVER SPIKE. Could be due to intraabdominal infection. Abdomen appeared to be increasingly distended and hypoactive bowel sounds, had watery stools. Fever maybe related to medications as well, I suspect it may be vancomycin. Had sputum cultures twice, they were negative. No apparent bedsores that can explain the fever. 3. CHRONIC OBSTRUCTIVE PULMONARY DISEASE/ASTHMA. Currently stable, not in acute bronchospasm. PLAN/RECOMMENDATIONS: 1. We will discontinue the IV vancomycin and continue the IV Zosyn and gentamicin. 2. We will continue to optimize ventilatory support and hemodynamically support. 3. We will do a CT scan of the abdomen and pelvis with IV contrast and oral contrast. DICTATING PHYSICIAN: ALPA GARCIA MD,ANNETTE,MPH [id number] PHY#: [id number] 2011 ID: [id number] JOB#: [id number] ACCT: [id number] cc: > MTDD
[2018-02-01] MEDS: IPRATROPIUM BROMIDE 0.02% NEB 0.5 MG/2.5 ML AMPUL NEB SCH ×4 (02:24→20:38)
[2018-02-01] MEDS: LEVALBUTEROL HCL NEB 1.25 MG/3 ML AMPUL NEB SCH ×4 (02:24→20:38)
[2018-02-01] MEDS: PIPERACILLIN SODIUM/TAZOBACTAM 3.375 GM in NORMAL SALINE 100 ML IV SCH (03:00)
[2018-02-01 05:06] LABS: ARTERIAL BLOOD BASE EXCESS 3.7 mmol/L; ARTERIAL BLOOD H2CO3 1.32 mmol/L (1.05-1.35); ARTERIAL BLOOD HCO3 28.4 mmol/L (20-24); ARTERIAL BLOOD O2 SATURATION 95.9 % (94-98); ARTERIAL BLOOD PCO2 43.9 mmHg (35-45); ARTERIAL BLOOD PH 7.43 (7.35-7.45); ARTERIAL BLOOD PO2 78.6 mmHg (80-100); ARTERIAL BLOOD TOTAL CO2 29.8 mmol/L (21-25)
[2018-02-01 05:17] LABS: ABSOLUTE EOSINOPHILS # (AUTO) 0.4 10^3/uL (0.0-0.6); ABSOLUTE LYMPHOCYTES (AUTO) 0.8 10^3/uL (0.5-4.7); BASOPHILS % (AUTO) 0.4 % (0-2); HEMATOCRIT 26.7 % (36.0-47.0); HEMOGLOBIN 8.8 g/dL (12.0-15.5); MEAN CORPUSCULAR HEMOGLOBIN 28.8 pg (27.0-33.4); MEAN CORPUSCULAR HGB CONC 33.2 g/dL (32.0-36.0); MEAN CORPUSCULAR VOLUME 87 fl (80-97); MONOCYTES % (AUTO) 15.8 % (3-13); PLATELET COUNT 213 10^3/uL (150-450); RED BLOOD COUNT 3.08 10^6/uL (3.72-5.28); RED CELL DISTRIBUTION WIDTH 15.5 % (11.5-14.0); SEGMENTED NEUTROPHILS % (AUTO) 64.8 % (42-78); TOTAL CELLS COUNTED % (AUTO) 100 %; WHITE BLOOD COUNT 6.1 10^3/uL (4.0-10.5)
[2018-02-01 05:17] LABS: ARTERIAL BLOOD FIO2 40%
[2018-02-01] MEDS: HEPARIN SOD (PORCINE) 5,000 UNIT/ML 1 ML SYRINGE SUBCUT SCH ×3 (05:26→22:38)
[2018-02-01] MEDS: LANSOPRAZOLE 30 MG TAB.RAP.DR PO SCH ×2 (05:26→17:44)
[2018-02-01 05:44] LABS: ANION GAP 7 (5-19); BLOOD UREA NITROGEN 7 mg/dL (7-20); CALCIUM 8.5 mg/dL (8.4-10.2); CARBON DIOXIDE 29 mmol/L (22-30); CHLORIDE 106 mmol/L (98-107); GLUCOSE 94 mg/dL (75-110); POTASSIUM 3.7 mmol/L (3.6-5.0); SODIUM 142.1 mmol/L (137-145)
--- NOTE | 2018-02-01 06:23 | RADIOLOGY REPORT (SQ) ---
Chest single view on 02/01/2018 at 5:52 AM CLINICAL INDICATION: Ventilated patient COMPARISON: 01/31/2018 FINDINGS: ET tube tip is in the midthoracic trachea. NG tube extends into the stomach. Multiple overlying wires are noted. Right-sided Howe apple is noted overlying the thoracic spine. Mild cardiomegaly is noted. Chronic rib deformities are noted bilaterally. There are continued bilateral opacities consistent with edema and/or pneumonia. Trace pleural effusions are likely present. IMPRESSION: No significant change in the appearance of the chest.
[2018-02-01] MEDS: DEXTROSE 5%-1/2 NORMAL SALINE 1,000 ML IV PRN ×2 (08:59→23:19)
[2018-02-01] MEDS: GENTAMICIN SULFATE 100 MG in DEXTROSE 5%-WATER 100 ML IV SCH ×2 (09:00→22:37)
[2018-02-01] MEDS: METOPROLOL TARTRATE 50 MG TABLET GT SCH ×2 (09:01→22:37)
[2018-02-01] MEDS ORDERED: SUCCINYLCHOLINE CHLORIDE INJ 200 MG/10 ML VIAL ONE (09:35)
--- NOTE | 2018-02-01 15:16 | RADIOLOGY REPORT (SQ) ---
EXAM DESCRIPTION: CHEST SINGLE VIEW COMPLETED DATE/TIME: 02/01/2018 3:05 pm REASON FOR STUDY: ETT placement check COMPARISON: Earlier the same day. NUMBER OF VIEWS: One view. TECHNIQUE: Single frontal radiographic image of the chest acquired. LIMITATIONS: None. FINDINGS: LUNGS AND PLEURA: Stable appearance. MEDIASTINUM AND HILAR STRUCTURES: Stable heart size and mediastinal structures. HEART AND VASCULAR STRUCTURES: Stable appearance. SUPPORT DEVICES: Endotracheal tube appears to been advanced. It lies just above the yvonne. BONES: No acute findings. OTHER: No other significant finding. IMPRESSION: Endotracheal tube has been advanced and lies just above the yvonne. Bilateral airspace disease is grossly unchanged. TECHNICAL DOCUMENTATION: JOB ID: [id number]- All Rights Reserved Reading location - IP/workstation name: [email or web address]
--- NOTE | 2018-02-01 15:17 | RADIOLOGY REPORT (SQ) ---
EXAM DESCRIPTION: KUB/ABDOMEN (SINGLE VIEW) COMPLETED DATE/TIME: 02/01/2018 3:05 pm REASON FOR STUDY: NGT placement COMPARISON: None. NUMBER OF VIEWS: One view. TECHNIQUE: Supine radiographic image of the abdomen acquired. LIMITATIONS: None. FINDINGS: NG tube is in place. Tip lies in the left mid abdomen. There appears to be gastric diste ntion. IMPRESSION: NG tube has been placed as described. Tip appears to lie within the stomach. TECHNICAL DOCUMENTATION: JOB ID: [id number] [employer]- All Rights Reserved Reading location - IP/workstation name: [email or web address]
[2018-02-01] MEDS ORDERED: ALPRAZOLAM 0.25 MG TABLET PO PRN (19:05)
[2018-02-01] MEDS ORDERED: IMIPENEM/CILASTATIN SODIUM INJ 500 MG VIAL IV SCH (19:15)
[2018-02-01] MEDS: ACETAMINOPHEN SOLN 325 MG/10.15 ML UDCUP GT PRN (20:03)
[2018-02-01] MEDS: IMIPENEM/CILASTATIN SODIUM 500 MG in NORMAL SALINE 100 ML IV SCH (21:43)
--- NOTE | 2018-02-01 21:47 | RADIOLOGY REPORT (SQ) ---
EXAM DESCRIPTION: CT CHEST WITHOUT IV CONTRAST COMPLETED DATE/TME: 02/01/2018 21:00 CLINICAL HISTORY: 68 years, Female, Severe pneumonia; persistent fever COMPARISON: CTA chest 11/25/2017 TECHNIQUE: 228 Images stored on PACS. All CT scanners at this facility use dose modulation, iterative reconstruction, and/or weight based dosing when appropriate to reduce radiation dose to as low as reasonably achievable (ALARA). [facility]: Dose Right [facility]: CareDose [facility]: Dose Right [facility]: Teradose 4D [facility]: [employer] LIMITATIONS: None. FINDINGS: The patient is intubated. Enteric tube also in place. Heavily calcified right hilar lymph nodes. Cardiomegaly. Severe scoliosis of the thoracic spine with fixation apple in place. Limited evaluation of the upper abdomen shows splenic granulomata. There is no pneumothorax. The visualized airways are patent. Consolidative changes within each lung base, grossly similar to the prior exam. Groundglass opacities which were present previously have improved slightly. IMPRESSION: Slight improvement in patchy groundglass opacities over the lung bases with persistent consolidative changes in each lung base. Cardiomegaly. Evidence of prior granulomatous disease. Endotracheal tube and enteric tube in place. TECHNICAL DOCUMENTATION: Quality ID # 436: Final reports with documentation of one or more dose reduction techniques (e.g., Automated exposure control, adjustment of the mA and/or kV according to patient size, use of iterative reconstruction technique) 2010 [employer]- All Rights Reserved
--- NOTE | 2018-02-01 21:49 | RADIOLOGY REPORT (SQ) ---
EXAM DESCRIPTION: CT MAXILLOFACIAL WITHOUT IV CONTRAST COMPLETED DATE/TME: 02/01/2018 21:00 CLINICAL HISTORY: 68 years, Female, persistent fever; FUO ? COMPARISON: None. TECHNIQUE: 214 Images stored on PACS. All CT scanners at this facility use dose modulation, iterative reconstruction, and/or weight based dosing when appropriate to reduce radiation dose to as low as reasonably achievable (ALARA). [facility]: Dose Right [facility]: CareDose [facility]: Dose Right [facility]: Teradose 4D [facility]: [employer] LIMITATIONS: None. FINDINGS: Nasogastric tube and endotracheal tube partially visualized. Limited evaluation of brain parenchyma is grossly unremarkable. The globes are intact. Moderate motion artifact. Extensive mucosal thickening with air-fluid levels of the sphenoid sinuses bilaterally. Also thickening of the nasal cavities bilaterally. No evidence for facial bone fracture. No bony destructive or expansile process. Partial opacification of the right mastoid air cells is also partially seen. IMPRESSION: Right greater than left sphenoid sinusitis. Mucosal thickening of the nasal cavities bilaterally. Partial opacification of the visualized right mastoid air cells. TECHNICAL DOCUMENTATION: Quality ID # 436: Final reports with documentation of one or more dose reduction techniques (e.g., Automated exposure control, adjustment of the mA and/or kV according to patient size, use of iterative reconstruction technique) 2010 [employer]- All Rights Reserved
--- NOTE | 2018-02-01 22:00 | PDOC PROGRESS REPORT ---
Subjective Progress Note for:: 02/01/18 Subjective:: Patient's condition is declining Reason For Visit: ACUTE RESPIRATORY FAILURE, BILATERAL PNEUMONIA Physical Exam Vital Signs: Temp Pulse Resp BP Pulse Ox 100.9 F H 111 H 22 H 150/70 H 94 02/01/18 19:59 02/01/18 19:53 02/01/18 18:03 02/01/18 18:03 02/01/18 18:03 Intake & Output 01/31/18 02/01/18 02/02/18 06:59 06:59 06:59 Intake Total 4970 3442 1267 Output Total 2575 2445 2195 Balance 2395 997 -928 Weight 77.4 kg 75.5 kg Respiratory exam: PRESENT: rhonchi Cardiovascular exam: PRESENT: +S1, +S2 GI/Abdominal exam: PRESENT: soft Results Laboratory Results: 02/01/18 05:04 02/01/18 05:04 02/01/18 02/01/18 02/01/18 04:50 05:04 05:04 WBC 6.1 RBC 3.08 L Hgb 8.8 L Hct 26.7 L MCV 87 MCH 28.8 MCHC 33.2 RDW 15.5 H Plt Count 213 Seg Neutrophils % 64.8 Lymphocytes % 13.0 Monocytes % 15.8 H Eosinophils % 6.0 Basophils % 0.4 Absolute Neutrophils 4.0 Absolute Lymphocytes 0.8 Absolute Monocytes 1.0 Absolute Eosinophils 0.4 Absolute Basophils 0.0 Carbonic Acid 1.32 HCO3/H2CO3 Ratio 21:1 ABG pH 7.43 ABG pCO2 43.9 ABG pO2 78.6 L ABG HCO3 28.4 H ABG O2 Saturation 95.9 ABG Base Excess 3.7 FiO2 40% Sodium 142.1 Potassium 3.7 Chloride 106 Carbon Dioxide 29 Anion Gap 7 BUN 7 Creatinine 0.50 L Est GFR ( Amer) > 60 Est GFR (Non-Af Amer) > 60 Glucose 94 Calcium 8.5 Magnesium 2.3 01/29/18 17:30 Sputum Gram Stain - Final 01/29/18 17:30 Sputum Sputum Culture - Final REDUCED NORMAL CLAUS 01/24/18 01/25/18 01/25/18 23:22 05:58 05:58 Creatine Kinase < 20 L CK-MB (CK-2) 1.51 1.15 Troponin I < 0.012 < 0.012 01/25/18 01/25/18 11:09 11:09 Creatine Kinase < 20 L CK-MB (CK-2) 0.57 Troponin I < 0.012 Impressions: Abdomen/Pelvis CT 01/31/18 20:00 IMPRESSION: Mild fluid layering in the pelvis. No evidence for acute appendicitis. KUB X-Ray 02/01/18 00:00 IMPRESSION: NG tube has been placed as described. Tip appears to lie within the stomach. Chest X-Ray 02/01/18 13:59 IMPRESSION: Endotracheal tube has been advanced and lies just above the yvonne. Bilateral airspace disease is grossly unchanged. Chest CT 02/01/18 21:00 IMPRESSION: Slight improvement in patchy groundglass opacities over the lung bases with persistent consolidative changes in each lung base. Cardiomegaly. Evidence of prior granulomatous disease. Endotracheal tube and enteric tube in place. TECHNICAL DOCUMENTATION: Quality ID # 436: Final reports with documentation of one or more dose reduction techniques (e.g., Automated exposure control, adjustment of the mA and/or kV according to patient size, use of iterative reconstruction technique) 2010 [employer]- All Rights Reserved Facial Bones CT 02/01/18 21:00 IMPRESSION: Right greater than left sphenoid sinusitis. Mucosal thickening of the nasal cavities bilaterally. Partial opacification of the visualized right mastoid air cells. TECHNICAL DOCUMENTATION: Quality ID # 436: Final reports with documentation of one or more dose reduction techniques (e.g., Automated exposure control, adjustment of the mA and/or kV according to patient size, use of iterative reconstruction technique) 2010 [employer]- All Rights Reserved Assessment & Plan - Diagnosis (1) Acute respiratory failure with hypoxia and hypercapnia Is this a current diagnosis for this admission?: Yes (2) Bilateral pneumonia Qualifiers: Pneumonia type: due to unspecified organism Lung location: unspecified part of lung Qualified Code(s): J18.9 - Pneumonia, unspecified organism Is this a current diagnosis for this admission?: Yes (3) Sepsis Qualifiers: Sepsis type: sepsis due to unspecified organism Qualified Code(s): A41.9 - Sepsis, unspecified organism Is this a current diagnosis for this admission?: Yes (4) Post-polio syndrome Is this a current diagnosis for this admission?: Yes (5) Scoliosis (and kyphoscoliosis), idiopathic Is this a current diagnosis for this admission?: Yes (6) Hypokalemia Is this a current diagnosis for this admission?: Yes
[2018-02-01] MEDS: ALPRAZOLAM 0.25 MG TABLET PO SCH (22:37)
[2018-02-01] MEDS: MORPHINE SULFATE 10 MG/ML INJ IV PRN (22:46)
--- NOTE | 2018-02-01 22:46 | PROGRESS NOTE E ---
Progress Note NAME: MITCH ORELLANA : 1950 AGE: 68Y DATE: 02/01/2018 ROOM: 607 SUBJECTIVE: Patient is a 68-year-old female who came in acute respiratory failure, requiring invasive mechanical ventilation, with pneumonia, pulmonary edema and chronic diarrhea. Patient failed spontaneous breathing trial this morning, after weaning off the sedation. Has some scanty endotracheal tube secretions, mild. No vomiting noted. Patient tolerated the NG tube feeding at 16 mL/hr, but still has diarrhea, per patient's nurse. The patient is still spiking a temperature to 100.4 to 100.9 degrees Fahrenheit over the last 24 hours. Vancomycin was discontinued yesterday. Patient was on Zosyn until this morning, and gentamicin is still on board. Patient started on IV Primaxin 500 mg IV q.6 hours tonight. OBJECTIVE: VITAL SIGNS: Patient appeared sedated, but not in apparent respiratory distress, with a blood pressure of 150/70, heart rate 109, temperature 100.9 with a T-max of 100.9, respiratory rate of 22 and saturation 94% on 40% FiO2. Tidal volume is 310, PEEP of 6, pressure support of 10 above PEEP, and FiO2 of 20%. Patient's peak airway pressure is 27-28 on mean ventilation setting of 0.2. Tidal volume is 310, 250 mL. EYES: No jaundice or pallor. EARS, NOSE AND THROAT: No ear drainage. No nasal discharge. CHEST AND LUNGS: No wheezing, no rhonchi, no coarse crackles. CARDIOVASCULAR: S1, S2 distant. No murmur. ABDOMEN: Flabby. Positive bowel sounds. Soft, nondistended. EXTREMITIES: No joint swelling or cellulitis. SKIN: No bed sores noted. DIAGNOSTICS: Patient had a CT scan of the abdomen and pelvis yesterday, which was unremarkable. CBC done today showed white count of 6.1, hemoglobin is 8.8, hematocrit is 36.7 and platelet count is 213,000. ABGs done today showed pH of 7.43, pCO2 is 43.9, pO2 is 78.6, bicarb is 28.4. Chemistry showed sodium is 142, potassium 3.7, chloride 106, carbon dioxide is 39, BUN 7, creatinine 0.5. Glucose is 94 and calcium is 8.5. Magnesium is 2.3. ASSESSMENT: 1. ACUTE RESPIRATORY FAILURE REQUIRING INVASIVE MECHANICAL VENTILATION. Currently not ready to be extubated yet. Patient failed spontaneous breathing trial this morning. 2. FEVER, PERSISTENT, OF UNCERTAIN ETIOLOGY. May be fever of unknown origin. May be also coming from a cardiac source, possible infective endocarditis or possible sinusitis with sinus infection or empyema or loculated pleural effusion. PLAN: Will start patient on Primaxin 500 mg IV piggyback every 6 hours and will continue the gentamicin. Will order for a CT scan of the sinuses and a CT scan of the chest without IV contrast. Will order for an echo and possibly a transesophageal echo to rule out infective endocarditis. DICTATING PHYSICIAN: ALPA GARCIA MD,ANNETTE,MPH [id number] PHY#: [id number] 1939 ID: [id number] JOB#: [id number] ACCT: [id number] cc: > MTDD
[2018-02-02] MEDS: IPRATROPIUM BROMIDE 0.02% NEB 0.5 MG/2.5 ML AMPUL NEB SCH ×4 (01:59→20:37)
[2018-02-02] MEDS: LEVALBUTEROL HCL NEB 1.25 MG/3 ML AMPUL NEB SCH ×4 (01:59→20:37)
[2018-02-02] MEDS: IMIPENEM/CILASTATIN SODIUM 500 MG in NORMAL SALINE 100 ML IV SCH ×4 (02:05→20:06)
[2018-02-02] MEDS: PROPOFOL 1,000 MG/100 ML INFUS..BTL IV PRN ×6 (02:08→20:15)
[2018-02-02] MEDS: MORPHINE SULFATE 10 MG/ML INJ IV PRN ×2 (02:52→21:15)
[2018-02-02 04:22] LABS: ANION GAP 9 (5-19); BLOOD UREA NITROGEN 6 mg/dL (7-20); CALCIUM 7.9 mg/dL (8.4-10.2); CARBON DIOXIDE 27 mmol/L (22-30); CHLORIDE 107 mmol/L (98-107); GLUCOSE 288 mg/dL (75-110)
[2018-02-02 04:31] LABS: POTASSIUM 2.9 mmol/L (3.6-5.0)
[2018-02-02] MEDS: ALPRAZOLAM 0.25 MG TABLET PO SCH ×3 (05:04→21:15)
[2018-02-02] MEDS: POTASSIUM CHLORIDE 20 MEQ/50 ML RTU IV SCH ×3 (05:04→08:17)
[2018-02-02] MEDS: HEPARIN SOD (PORCINE) 5,000 UNIT/ML 1 ML SYRINGE SUBCUT SCH ×3 (05:05→21:14)
[2018-02-02] MEDS: LANSOPRAZOLE 30 MG TAB.RAP.DR PO SCH (05:06)
[2018-02-02 05:41] LABS: ARTERIAL BLOOD BASE EXCESS 2.6 mmol/L; ARTERIAL BLOOD H2CO3 1.66 mmol/L (1.05-1.35); ARTERIAL BLOOD HCO3 29.6 mmol/L (20-24); ARTERIAL BLOOD PCO2 55.2 mmHg (35-45); ARTERIAL BLOOD PH 7.35 (7.35-7.45); ARTERIAL BLOOD PO2 66.9 mmHg (80-100); ARTERIAL BLOOD TOTAL CO2 31.3 mmol/L (21-25)
[2018-02-02 05:42] LABS: ARTERIAL BLOOD FIO2 40%
[2018-02-02 10:56] LABS: GENTAMICIN-TROUGH 1.8 ug/mL (<2.0)
[2018-02-02] MEDS: METOPROLOL TARTRATE 50 MG TABLET GT SCH ×2 (12:06→21:15)
[2018-02-02] MEDS: GENTAMICIN SULFATE 100 MG in DEXTROSE 5%-WATER 100 ML IV SCH ×2 (13:35→21:14)
--- NOTE | 2018-02-02 17:24 | PDOC PROGRESS REPORT ---
Subjective Progress Note for:: 02/02/18 Subjective:: Patient's condition remains poor Reason For Visit: ACUTE RESPIRATORY FAILURE, BILATERAL PNEUMONIA Physical Exam Vital Signs: Temp Pulse Resp BP Pulse Ox 99.1 F 92 22 H 130/74 H 95 02/02/18 15:03 02/02/18 14:03 02/02/18 15:03 02/02/18 15:03 02/02/18 15:03 Intake & Output 02/01/18 02/02/18 02/03/18 06:59 06:59 06:59 Intake Total 3442 2946 396 Output Total 2445 3055 700 Balance 997 -109 -304 Weight 75.5 kg 76 kg Eye exam: PRESENT: PERRLA Respiratory exam: PRESENT: decreased breath sounds Cardiovascular exam: PRESENT: +S1, +S2 GI/Abdominal exam: PRESENT: soft Results Laboratory Results: 02/01/18 05:04 02/02/18 03:43 02/02/18 02/02/18 03:43 05:30 Carbonic Acid 1.66 H HCO3/H2CO3 Ratio 17:1 ABG pH 7.35 ABG pCO2 55.2 H ABG pO2 66.9 L ABG HCO3 29.6 H ABG O2 Saturation 92.0 L ABG Base Excess 2.6 FiO2 40% Sodium 143.0 Potassium 2.9 L* Chloride 107 Carbon Dioxide 27 Anion Gap 9 BUN 6 L Creatinine 0.46 L Est GFR ( Amer) > 60 Est GFR (Non-Af Amer) > 60 Glucose 288 H Calcium 7.9 L Magnesium 2.0 01/24/18 01/25/18 01/25/18 23:22 05:58 05:58 Creatine Kinase < 20 L CK-MB (CK-2) 1.51 1.15 Troponin I < 0.012 < 0.012 01/25/18 01/25/18 11:09 11:09 Creatine Kinase < 20 L CK-MB (CK-2) 0.57 Troponin I < 0.012 Impressions: Abdomen/Pelvis CT 01/31/18 20:00 IMPRESSION: Mild fluid layering in the pelvis. No evidence for acute appendicitis. KUB X-Ray 02/01/18 00:00 IMPRESSION: NG tube has been placed as described. Tip appears to lie within the stomach. Chest X-Ray 02/01/18 13:59 IMPRESSION: Endotracheal tube has been advanced and lies just above the yvonne. Bilateral airspace disease is grossly unchanged. Chest CT 02/01/18 21:00 IMPRESSION: Slight improvement in patchy groundglass opacities over the lung bases with persistent consolidative changes in each lung base. Cardiomegaly. Evidence of prior granulomatous disease. Endotracheal tube and enteric tube in place. TECHNICAL DOCUMENTATION: Quality ID # 436: Final reports with documentation of one or more dose reduction techniques (e.g., Automated exposure control, adjustment of the mA and/or kV according to patient size, use of iterative reconstruction technique) 2010 [employer] All Rights Reserved Facial Bones CT 02/01/18 21:00 IMPRESSION: Right greater than left sphenoid sinusitis. Mucosal thickening of the nasal cavities bilaterally. Partial opacification of the visualized right mastoid air cells. TECHNICAL DOCUMENTATION: Quality ID # 436: Final reports with documentation of one or more dose reduction techniques (e.g., Automated exposure control, adjustment of the mA and/or kV according to patient size, use of iterative reconstruction technique) 2010 [employer] All Rights Reserved Assessment & Plan - Diagnosis (1) Acute respiratory failure with hypoxia and hypercapnia Is this a current diagnosis for this admission?: Yes (2) Bilateral pneumonia Qualifiers: Pneumonia type: due to unspecified organism Lung location: unspecified part of lung Qualified Code(s): J18.9 - Pneumonia, unspecified organism Is this a current diagnosis for this admission?: Yes (3) Sepsis Qualifiers: Sepsis type: sepsis due to unspecified organism Qualified Code(s): A41.9 - Sepsis, unspecified organism Is this a current diagnosis for this admission?: Yes (4) Post-polio syndrome Is this a current diagnosis for this admission?: Yes (5) Scoliosis (and kyphoscoliosis), idiopathic Is this a current diagnosis for this admission?: Yes (6) Hypokalemia Is this a current diagnosis for this admission?: Yes
[2018-02-02 19:04] LABS: ANION GAP 6 (5-19); BLOOD UREA NITROGEN 7 mg/dL (7-20); CALCIUM 8.6 mg/dL (8.4-10.2); CARBON DIOXIDE 29 mmol/L (22-30); CHLORIDE 109 mmol/L (98-107); GLUCOSE 92 mg/dL (75-110); SODIUM 143.9 mmol/L (137-145)
[2018-02-02 19:14] LABS: POTASSIUM 4.4 mmol/L (3.6-5.0)
--- NOTE | 2018-02-02 19:22 | Progress Note ---
Provider Note Provider Note: ID Consult Note Asked to review patient's chart by Pharmacy. Pt not seen or examined. Reviewed provider and imaging reports, VS, labs. Ms. Johnston is an obese woman with PMH including COPD with chronic respiratory failure, closed R femoral neck fx s/p ORIF, and post-polio syndrome, scoliosis. She presented overnight between 01/24/18-01/25/18 to the [facility] ED with decreased responsiveness, found to have mixed hypercapnic and hypoxic respiratory failure requiring intubation. She has remained intubated since . She has had temperatures ranging from 99.9-101.3 during her hospital stay, fever essentially each day from 01/25 to 02/01. Pt had CXR on 01/24 that was read as concerning for multifocal PNA vs edema. Empirically, vancomycin and Zosyn were started on 01/25 and continued until 02/01. Most recent exam documented as unrevealing - soft ND abdomen, no murmur, no ear or nasal drainage , no wheezing or rhonchi, no joint swelling or cellulitis. Noted to have scant ET secretions. Labs include WBC WNL since 01/25 to present, no eosinophilia, anemia, plt count WNL CPK not elevated, AST and ALT WNL, alkaline phosphatase and bilirubin unremarkable, lipase this admission WNL, NT-pro-BNP 689. TSH WNL. most recent imaging includes CT abdomen with IV contrast was unrevealing for intraabdominal source of fever. CT chest w/o contrast on 02/01 showed slight improvement in patchy ground glass opacities over bases with persistent consolidative changes in bases, cardiomegaly CT facial bones 02/01: R>L sphenoid sinusitis, mucosal thickening nasal cavities b/l Cultures/microbiology: BCx on presentation showed no growth. U/A and UCx on 01/24 not c/w UTI. Gram stain and cx of respiratory secretions on 01/25 showed only normal abhi. Repeat BCx on 01/28 showed no growth. Repeat respiratory culture on 01/29 showed reduced normal abhi. C difficile PCR was negative. Abx: vancomycin and zosyn 01/25-02/01 gentamicin/imipenem 02/01 to present Impression/Recommendations Fever of unknown origin in ICU patient - Imaging (CT chest /abd /pelvis, facial bones) and exam unrevealing for source. Significance of sphenoid sinus opacification as a cause of occult fever is unclear; overall sinusitis prevalence is low in comparison to other infectious causes of fever in ICU, and pt has already been treated empirically with broad spectrum antibiotics including anaerobic/MRSA/GNR including anti- pseudomonal activity for a week. Lung parenchymal abnormalities on imaging can lag behind clinical improvement, she has already completed a course of therapy of empiric broad spectrum antibiotics, and no resistant pathogen was found with respiratory cultures x 2 prior this point, no bacteremia found with initial blood cultures and repeat on treatment when pt continued to have fever. - If patient is hemodynamically stable, recommend discontinuing empiric antibiotic therapy (stop gentamicin and imipenem). Drug fever , among other noninfectious etiologies of fever, has to be kept in mind if no other source is aparent despite an adequate w/u for infectious source, and beta lactam antibiotics are most commonly implicated here. Drug fever does not necessarily have to be accompanied by eosinophilia and/or rash. - If fever persists, agree that TTE to evaluate possibility of culture negative endocarditis is reasonable and, if limited views, KHADRA Sonny Smith MD [facility] pager [phone]
[2018-02-02] MEDS: ACETAMINOPHEN SOLN 325 MG/10.15 ML UDCUP GT PRN (19:52)
[2018-02-02] MEDS: DEXTROSE 5%-1/2 NORMAL SALINE 1,000 ML IV PRN (22:29)
[2018-02-03] MEDS: PROPOFOL 1,000 MG/100 ML INFUS..BTL IV PRN ×6 (00:06→22:23)
[2018-02-03] MEDS: IMIPENEM/CILASTATIN SODIUM 500 MG in NORMAL SALINE 100 ML IV SCH ×4 (02:05→20:22)
[2018-02-03] MEDS: IPRATROPIUM BROMIDE 0.02% NEB 0.5 MG/2.5 ML AMPUL NEB SCH ×4 (02:06→20:02)
[2018-02-03] MEDS: LEVALBUTEROL HCL NEB 1.25 MG/3 ML AMPUL NEB SCH ×4 (02:06→20:02)
[2018-02-03] MEDS: MORPHINE SULFATE 10 MG/ML INJ IV PRN ×3 (03:26→21:16)
[2018-02-03 04:21] LABS: ANION GAP 7 (5-19); BLOOD UREA NITROGEN 8 mg/dL (7-20); CALCIUM 8.1 mg/dL (8.4-10.2); CARBON DIOXIDE 27 mmol/L (22-30); CHLORIDE 107 mmol/L (98-107); GLUCOSE 272 mg/dL (75-110); POTASSIUM 3.9 mmol/L (3.6-5.0); TRIGLYCERIDES 139 mg/dL (<150)
[2018-02-03] MEDS: HEPARIN SOD (PORCINE) 5,000 UNIT/ML 1 ML SYRINGE SUBCUT SCH ×3 (05:03→21:16)
[2018-02-03] MEDS: LANSOPRAZOLE 30 MG TAB.RAP.DR PO SCH (05:03)
[2018-02-03] MEDS: ALPRAZOLAM 0.25 MG TABLET PO SCH ×3 (05:04→21:17)
--- NOTE | 2018-02-03 07:52 | PROGRESS NOTE E ---
Progress Note NAME: MITCH ORELLANA : 1950 AGE: 68Y DATE: 02/01/2018 ROOM: 607 SUBJECTIVE: The patient is a 62-year-old female who came with acute respiratory failure requiring invasive mechanical ventilation. The patient treated for pneumonia, pulmonary edema, and acute sphenoid sinusitis. The patient has been febrile for the last 2 weeks, low grade fever, temperature spiking to 100.2/100.4 degrees Fahrenheit. The patient has been receiving IV Zosyn, IV vancomycin, and IV gentamicin for the last few days. The patient completed 1 week of IV Zosyn yesterday. The patient was started on gentamicin about 2-3 days ago. The patient completed also 1 week of IV vancomycin. The patient tolerated NG tube feeding well, but meanwhile no gastric residual. Still has some watery stool, but slightly diminished in quantity. Endotracheal tube secretions is mild to moderate. Sputum cultures from the endotracheal tube twice were non-conclusive. Had a CT scan of the abdomen which did not show any potential causes of infection. Chest CT scan done yesterday showed some bibasal consolidation and a small amount of pleural effusion. CT scan of the head showed sphenoid sinusitis. ENT was consulted. Her blood pressure has been stable. The urine output has been adequate. OBJECTIVE: GENERAL: The patient is sedated, slightly febrile, not in apparent respiratory distress. VITAL SIGNS: Temperature of 100.2 tonight with a T-max of 100.2, but temperature has been 99.7, 99.9 throughout the day. Heart rate is 95, blood pressure is 141/72, respiratory is 22, saturation is 95% on 40% FiO2, SIMV rate of 22, tidal volume of 310, pressure support of 10 above PEEP and a PEEP of 6, peak airway is about 24, minute ventilation is 6.87, exhaled tidal volume is over 310. The patient had a weaning sedation medication this morning. The patient became tachycardic, tachypneic and had spontaneous breathing trial but subsequently the patient did not tolerate, the patient was placed back on the previous SIMV setting. EYES: No jaundice or pallor. EARS, NOSE, AND THROAT: No ear drainage noted. No nasal discharge. Orotracheal tube is in place. CHEST AND LUNGS: No wheezing, no rhonchi, no coarse crackles. CARDIOVASCULAR: S1, S2 distinct. Normal rate and regular rhythm. ABDOMEN: Flabby, positive bowel sounds, soft, nondistended, nontender. EXTREMITIES: No joint swelling, no cellulitis. INPUT AND OUTPUT: The patient has a positive balance of 927 mL yesterday February 01, 2018 and a positive balance of 2395 mL on January 31, 2018 and a positive balance of 248 on January 30, 2018. LABORATORY DATA: Chemistry done today showed sodium of 143, potassium was 2.9. The patient had a potassium chloride rider per protocol and it went up to 4.4 tonight. Chloride is 107, bicarb is 27, BUN is 6, creatinine is 0.46, glucose is 288, and calcium of 7.9. ASSESSMENT: 1. ACUTE RESPIRATORY FAILURE REQUIRING INVASIVE MECHANICAL VENTILATION. The patient failed a spontaneous breathing trial this morning, did not tolerate the procedure. 2. PNEUMONIA, BILATERAL, SEEMS TO BE IMPROVING. White count decreasing. 3. PULMONARY EDEMA. Stable. 4. PERSISTENT FEVER, PROBABLY DUE TO THE SPHENOID SINUSITIS. PNEUMONIA. Currently on Primaxin 500 mg IV q.6 hours and gentamicin. PLAN/RECOMMENDATION: 1. We will continue with continuous ventilatory support. 2. We will continue the spontaneous breathing trial every morning. 3. We will continue to optimizer ventilatory support. 4. We will continue the same IV antibiotics, gentamicin and Primaxin. 5. Dr. Schwab will follow the patient. Will cover for pulmonary tomorrow , Wednesday and Wednesday. DICTATING PHYSICIAN: ALPA GARCIA MD,ANNETTE,MPH [id number] PHY#: [id number] ID: [id number] JOB#: [id number] ACCT: [id number] cc: > MTDD
[2018-02-03 09:54] LABS: ARTERIAL BLOOD BASE EXCESS 1.8 mmol/L; ARTERIAL BLOOD FIO2 40%; ARTERIAL BLOOD H2CO3 1.53 mmol/L (1.05-1.35); ARTERIAL BLOOD HCO3 27.8 mmol/L (20-24); ARTERIAL BLOOD O2 SATURATION 92.9 % (94-98); ARTERIAL BLOOD PCO2 50.8 mmHg (35-45); ARTERIAL BLOOD PH 7.36 (7.35-7.45); ARTERIAL BLOOD TOTAL CO2 29.4 mmol/L (21-25)
[2018-02-03] MEDS: GENTAMICIN SULFATE 100 MG in DEXTROSE 5%-WATER 100 ML IV SCH ×2 (11:00→21:17)
[2018-02-03] MEDS: METOPROLOL TARTRATE 50 MG TABLET GT SCH ×2 (11:01→21:17)
[2018-02-03 13:48] LABS: GENTAMICIN-PEAK 6.7 ug/mL (5.0-10.0)
--- NOTE | 2018-02-03 14:38 | PDOC PROGRESS REPORT ---
Subjective Progress Note for:: 02/03/18 Subjective:: Dr Peres covering for patient currently intubated and sedated Reason For Visit: ACUTE RESPIRATORY FAILURE, BILATERAL PNEUMONIA Physical Exam Vital Signs: Temp Pulse Resp BP Pulse Ox 98.1 F 85 22 H 121/58 L 96 02/03/18 06:00 02/03/18 07:39 02/03/18 07:39 02/03/18 05:04 02/03/18 07:39 Intake & Output 02/02/18 02/03/18 02/04/18 06:59 06:59 06:59 Intake Total 2946 3225 Output Total 3055 2235 600 Balance -109 990 -600 Weight 76 kg 76.9 kg General appearance: PRESENT: no acute distress, disheveled, obese. ABSENT: cooperative Head exam: PRESENT: atraumatic, normocephalic Eye exam: PRESENT: conjunctiva pale. ABSENT: nystagmus, periorbital swelling, scleral icterus Mouth exam: PRESENT: dry mucosa, neck supple, tongue midline, other - ET tube in place Neck exam: ABSENT: carotid bruit, JVD, lymphadenopathy, thyromegaly, tracheal deviation, tracheostomy Respiratory exam: PRESENT: decreased breath sounds, prolonged expiratory phas, rhonchi, symmetrical, unlabored. ABSENT: retraction, stridor, tachypnea Cardiovascular exam: PRESENT: RRR, +S1, +S2 Pulses: PRESENT: normal radial pulses GI/Abdominal exam: PRESENT: soft Gentrourinary exam: PRESENT: indwelling catheter Extremities exam: ABSENT: calf tenderness, clubbing, joint swelling Musculoskeletal exam: ABSENT: deformity, dislocation Neurological exam: ABSENT: awake Skin exam: PRESENT: dry, warm Results Laboratory Results: 02/01/18 05:04 02/03/18 03:45 02/02/18 02/03/18 18:42 03:45 Sodium 143.9 141.0 Potassium 4.4 D 3.9 Chloride 109 H 107 Carbon Dioxide 29 27 Anion Gap 6 7 BUN 7 8 Creatinine 0.50 L 0.43 L Est GFR ( Amer) > 60 > 60 Est GFR (Non-Af Amer) > 60 > 60 Glucose 92 272 H Calcium 8.6 8.1 L Magnesium 2.0 Triglycerides 139 01/28/18 22:45 Blood Blood Culture - Final NO GROWTH IN 5 DAYS 01/28/18 22:25 Blood Blood Culture - Final NO GROWTH IN 5 DAYS 01/24/18 01/25/18 01/25/18 23:22 05:58 05:58 Creatine Kinase < 20 L CK-MB (CK-2) 1.51 1.15 Troponin I < 0.012 < 0.012 01/25/18 01/25/18 11:09 11:09 Creatine Kinase < 20 L CK-MB (CK-2) 0.57 Troponin I < 0.012 Impressions: Abdomen/Pelvis CT 01/31/18 20:00 IMPRESSION: Mild fluid layering in the pelvis. No evidence for acute appendicitis. KUB X-Ray 02/01/18 00:00 IMPRESSION: NG tube has been placed as described. Tip appears to lie within the stomach. Chest X-Ray 02/01/18 13:59 IMPRESSION: Endotracheal tube has been advanced and lies just above the yvonne. Bilateral airspace disease is grossly unchanged. Chest CT 02/01/18 21:00 IMPRESSION: Slight improvement in patchy groundglass opacities over the lung bases with persistent consolidative changes in each lung base. Cardiomegaly. Evidence of prior granulomatous disease. Endotracheal tube and enteric tube in place. TECHNICAL DOCUMENTATION: Quality ID # 436: Final reports with documentation of one or more dose reduction techniques (e.g., Automated exposure control, adjustment of the mA and/or kV according to patient size, use of iterative reconstruction technique) 2010 [employer]- All Rights Reserved Facial Bones CT 02/01/18 21:00 IMPRESSION: Right greater than left sphenoid sinusitis. Mucosal thickening of the nasal cavities bilaterally. Partial opacification of the visualized right mastoid air cells. TECHNICAL DOCUMENTATION: Quality ID # 436: Final reports with documentation of one or more dose reduction techniques (e.g., Automated exposure control, adjustment of the mA and/or kV according to patient size, use of iterative reconstruction technique) 2010 [employer]- All Rights Reserved Assessment & Plan - Diagnosis (1) Acute respiratory failure with hypoxia and hypercapnia Is this a current diagnosis for this admission?: Yes Plan: Labs- All tests 24 hr 02/03/18 09:30 ABG pH 7.36 ABG pCO2 50.8 H ABG pO2 69.0 L ABG O2 Saturation 92.9 L FiO2 40% (2) Bilateral pneumonia Qualifiers: Pneumonia type: due to unspecified organism Lung location: unspecified part of lung Qualified Code(s): J18.9 - Pneumonia, unspecified organism Is this a current diagnosis for this admission?: Yes Plan: Labs- All tests 24 hr 02/01/18 05:04 WBC 6.1 Seg Neutrophils % 64.8 Lymphocytes % 13.0 Monocytes % 15.8 H Eosinophils % 6.0 01/29/18 17:30 Gram Stain - Final Sputum Sputum Culture - Final REDUCED NORMAL CLAUS 01/27/18 10:10 Gram Stain - Final Sputum Sputum Culture - Final NO GROWTH 3 DAYS 01/25/18 01:50 Gram Stain - Final Sputum Sputum Culture - Final NORMAL CLAUS (3) Chronic obstructive pulmonary disease Qualifiers: COPD type: unspecified COPD Qualified Code(s): J44.9 - Chronic obstructive pulmonary disease, unspecified Is this a current diagnosis for this admission?: Yes - Time Total Critical Time (Minutes): 45
[2018-02-03] MEDS: ACETYLCYSTEINE 20% SOLN 800 MG/4 ML VIAL.NEB NEB SCH (20:01)
--- NOTE | 2018-02-03 20:46 | PDOC PROGRESS REPORT ---
Subjective Progress Note for:: 02/03/18 Subjective:: Patient remained intubated, I had a long discussion with patient's son about her mother's condition, she may need tracheostomy, she is not weanable at this time, her living will was ask of the son, she does not have any designated medical decision surrogate, the son is only child Reason For Visit: ACUTE RESPIRATORY FAILURE, BILATERAL PNEUMONIA Physical Exam Vital Signs: Temp Pulse Resp BP Pulse Ox 99.0 F 90 22 H 155/73 H 93 02/03/18 20:00 02/03/18 14:00 02/03/18 18:05 02/03/18 18:05 02/03/18 18:05 Intake & Output 02/02/18 02/03/18 02/04/18 06:59 06:59 06:59 Intake Total 2946 3225 921 Output Total 3055 2235 1975 Balance -109 990 -1054 Weight 76 kg 76.9 kg Respiratory exam: PRESENT: decreased breath sounds, rhonchi Cardiovascular exam: PRESENT: +S1, +S2 GI/Abdominal exam: PRESENT: soft Neurological exam: PRESENT: alert Results Laboratory Results: 02/01/18 05:04 02/03/18 03:45 02/03/18 02/03/18 03:45 09:30 Carbonic Acid 1.53 H HCO3/H2CO3 Ratio 18:1 ABG pH 7.36 ABG pCO2 50.8 H ABG pO2 69.0 L ABG HCO3 27.8 H ABG O2 Saturation 92.9 L ABG Base Excess 1.8 FiO2 40% Sodium 141.0 Potassium 3.9 Chloride 107 Carbon Dioxide 27 Anion Gap 7 BUN 8 Creatinine 0.43 L Est GFR ( Amer) > 60 Est GFR (Non-Af Amer) > 60 Glucose 272 H Calcium 8.1 L Magnesium 2.0 Triglycerides 139 01/28/18 22:45 Blood Blood Culture - Final NO GROWTH IN 5 DAYS 01/28/18 22:25 Blood Blood Culture - Final NO GROWTH IN 5 DAYS 01/24/18 01/25/18 01/25/18 23:22 05:58 05:58 Creatine Kinase < 20 L CK-MB (CK-2) 1.51 1.15 Troponin I < 0.012 < 0.012 01/25/18 01/25/18 11:09 11:09 Creatine Kinase < 20 L CK-MB (CK-2) 0.57 Troponin I < 0.012 Impressions: Abdomen/Pelvis CT 01/31/18 20:00 IMPRESSION: Mild fluid layering in the pelvis. No evidence for acute appendicitis. KUB X-Ray 02/01/18 00:00 IMPRESSION: NG tube has been placed as described. Tip appears to lie within the stomach. Chest X-Ray 02/01/18 13:59 IMPRESSION: Endotracheal tube has been advanced and lies just above the yvonne. Bilateral airspace disease is grossly unchanged. Chest CT 02/01/18 21:00 IMPRESSION: Slight improvement in patchy groundglass opacities over the lung bases with persistent consolidative changes in each lung base. Cardiomegaly. Evidence of prior granulomatous disease. Endotracheal tube and enteric tube in place. TECHNICAL DOCUMENTATION: Quality ID # 436: Final reports with documentation of one or more dose reduction techniques (e.g., Automated exposure control, adjustment of the mA and/or kV according to patient size, use of iterative reconstruction technique) 2010 [employer]- All Rights Reserved Facial Bones CT 02/01/18 21:00 IMPRESSION: Right greater than left sphenoid sinusitis. Mucosal thickening of the nasal cavities bilaterally. Partial opacification of the visualized right mastoid air cells. TECHNICAL DOCUMENTATION: Quality ID # 436: Final reports with documentation of one or more dose reduction techniques (e.g., Automated exposure control, adjustment of the mA and/or kV according to patient size, use of iterative reconstruction technique) 2010 [employer]- All Rights Reserved Assessment & Plan - Diagnosis (1) Acute respiratory failure with hypoxia and hypercapnia Is this a current diagnosis for this admission?: Yes (2) Bilateral pneumonia Qualifiers: Pneumonia type: due to unspecified organism Lung location: unspecified part of lung Qualified Code(s): J18.9 - Pneumonia, unspecified organism Is this a current diagnosis for this admission?: Yes (3) Sepsis Qualifiers: Sepsis type: sepsis due to unspecified organism Qualified Code(s): A41.9 - Sepsis, unspecified organism Is this a current diagnosis for this admission?: Yes (4) Post-polio syndrome Is this a current diagnosis for this admission?: Yes (5) Scoliosis (and kyphoscoliosis), idiopathic Is this a current diagnosis for this admission?: Yes (6) Hypokalemia Is this a current diagnosis for this admission?: Yes - Plan Summary Plan Summary: Continue present vent management,and other treatment
[2018-02-03] MEDS: DEXTROSE 5%-1/2 NORMAL SALINE 1,000 ML IV PRN (21:18)
[2018-02-04] MEDS: PROPOFOL 1,000 MG/100 ML INFUS..BTL IV PRN ×6 (02:00→23:08)
[2018-02-04] MEDS: MORPHINE SULFATE 10 MG/ML INJ IV PRN ×2 (02:10→20:36)
[2018-02-04] MEDS: IMIPENEM/CILASTATIN SODIUM 500 MG in NORMAL SALINE 100 ML IV SCH ×4 (02:11→20:36)
[2018-02-04] MEDS: LEVALBUTEROL HCL NEB 1.25 MG/3 ML AMPUL NEB SCH ×4 (02:15→21:17)
[2018-02-04] MEDS: IPRATROPIUM BROMIDE 0.02% NEB 0.5 MG/2.5 ML AMPUL NEB SCH ×4 (02:15→21:17)
[2018-02-04 04:28] LABS: ANION GAP 8 (5-19); BLOOD UREA NITROGEN 8 mg/dL (7-20); CALCIUM 7.1 mg/dL (8.4-10.2); CARBON DIOXIDE 24 mmol/L (22-30); CHLORIDE 102 mmol/L (98-107); POTASSIUM 3.3 mmol/L (3.6-5.0); SODIUM 134.4 mmol/L (137-145)
[2018-02-04 04:46] LABS: GLUCOSE 606 mg/dL (75-110)
[2018-02-04 05:48] LABS: ANION GAP 7 (5-19); BLOOD UREA NITROGEN 10 mg/dL (7-20); CALCIUM 8.4 mg/dL (8.4-10.2); CARBON DIOXIDE 27 mmol/L (22-30); CHLORIDE 108 mmol/L (98-107); GLUCOSE 95 mg/dL (75-110); POTASSIUM 3.8 mmol/L (3.6-5.0); SODIUM 141.7 mmol/L (137-145)
[2018-02-04] MEDS: LANSOPRAZOLE 30 MG TAB.RAP.DR PO SCH (06:01)
[2018-02-04] MEDS: ALPRAZOLAM 0.25 MG TABLET PO SCH ×3 (06:01→21:15)
[2018-02-04] MEDS: HEPARIN SOD (PORCINE) 5,000 UNIT/ML 1 ML SYRINGE SUBCUT SCH ×3 (06:01→21:14)
[2018-02-04] MEDS: ACETYLCYSTEINE 20% SOLN 800 MG/4 ML VIAL.NEB NEB SCH ×2 (07:40→21:17)
[2018-02-04] MEDS: GENTAMICIN SULFATE 100 MG in DEXTROSE 5%-WATER 100 ML IV SCH ×2 (09:40→21:15)
[2018-02-04] MEDS: METOPROLOL TARTRATE 50 MG TABLET GT SCH ×2 (09:41→21:15)
--- NOTE | 2018-02-04 20:19 | PDOC PROGRESS REPORT ---
Subjective Progress Note for:: 02/04/18 Subjective:: Patient still on mechanical ventilation, Patient is not weanable Reason For Visit: ACUTE RESPIRATORY FAILURE, BILATERAL PNEUMONIA Physical Exam Vital Signs: Temp Pulse Resp BP Pulse Ox 100.6 F H 98 22 H 136/74 H 98 02/04/18 19:35 02/04/18 14:20 02/04/18 18:05 02/04/18 18:05 02/04/18 18:05 Intake & Output 02/03/18 02/04/18 02/05/18 06:59 06:59 06:59 Intake Total 3225 3179 1998 Output Total 2912 7382 215 Balance 990 -146 -151 Weight 76.9 kg 77.4 kg Eye exam: PRESENT: PERRLA Respiratory exam: PRESENT: clear to auscultation ryley Cardiovascular exam: PRESENT: +S1, +S2 Results Laboratory Results: 02/01/18 05:04 02/04/18 05:15 02/04/18 02/04/18 03:50 05:15 Sodium 134.4 L 141.7 Potassium 3.3 L 3.8 Chloride 102 108 H Carbon Dioxide 24 27 Anion Gap 8 7 BUN 8 10 Creatinine 0.43 L 0.48 L Est GFR ( Amer) > 60 > 60 Est GFR (Non-Af Amer) > 60 > 60 Glucose 606 H* 95 Calcium 7.1 L 8.4 Magnesium 1.8 01/24/18 01/25/18 01/25/18 23:22 05:58 05:58 Creatine Kinase < 20 L CK-MB (CK-2) 1.51 1.15 Troponin I < 0.012 < 0.012 01/25/18 01/25/18 11:09 11:09 Creatine Kinase < 20 L CK-MB (CK-2) 0.57 Troponin I < 0.012 Impressions: Abdomen/Pelvis CT 01/31/18 20:00 IMPRESSION: Mild fluid layering in the pelvis. No evidence for acute appendicitis. KUB X-Ray 02/01/18 00:00 IMPRESSION: NG tube has been placed as described. Tip appears to lie within the stomach. Chest X-Ray 02/01/18 13:59 IMPRESSION: Endotracheal tube has been advanced and lies just above the yvonne. Bilateral airspace disease is grossly unchanged. Chest CT 02/01/18 21:00 IMPRESSION: Slight improvement in patchy groundglass opacities over the lung bases with persistent consolidative changes in each lung base. Cardiomegaly. Evidence of prior granulomatous disease. Endotracheal tube and enteric tube in place. TECHNICAL DOCUMENTATION: Quality ID # 436: Final reports with documentation of one or more dose reduction techniques (e.g., Automated exposure control, adjustment of the mA and/or kV according to patient size, use of iterative reconstruction technique) 2010 [employer]- All Rights Reserved Facial Bones CT 02/01/18 21:00 IMPRESSION: Right greater than left sphenoid sinusitis. Mucosal thickening of the nasal cavities bilaterally. Partial opacification of the visualized right mastoid air cells. TECHNICAL DOCUMENTATION: Quality ID # 436: Final reports with documentation of one or more dose reduction techniques (e.g., Automated exposure control, adjustment of the mA and/or kV according to patient size, use of iterative reconstruction technique) 2010 [employer]- All Rights Reserved Assessment & Plan - Diagnosis (1) Acute respiratory failure with hypoxia and hypercapnia Is this a current diagnosis for this admission?: Yes (2) Bilateral pneumonia Qualifiers: Pneumonia type: due to unspecified organism Lung location: unspecified part of lung Qualified Code(s): J18.9 - Pneumonia, unspecified organism Is this a current diagnosis for this admission?: Yes (3) Sepsis Qualifiers: Sepsis type: sepsis due to unspecified organism Qualified Code(s): A41.9 - Sepsis, unspecified organism Is this a current diagnosis for this admission?: Yes (4) Post-polio syndrome Is this a current diagnosis for this admission?: Yes (5) Scoliosis (and kyphoscoliosis), idiopathic Is this a current diagnosis for this admission?: Yes (6) Hypokalemia Is this a current diagnosis for this admission?: Yes
[2018-02-05] MEDS: IMIPENEM/CILASTATIN SODIUM 500 MG in NORMAL SALINE 100 ML IV SCH ×4 (02:11→20:22)
[2018-02-05] MEDS: PROPOFOL 1,000 MG/100 ML INFUS..BTL IV PRN ×6 (02:11→22:45)
[2018-02-05] MEDS: DEXTROSE 5%-1/2 NORMAL SALINE 1,000 ML IV PRN (02:17)
[2018-02-05] MEDS: LEVALBUTEROL HCL NEB 1.25 MG/3 ML AMPUL NEB SCH ×4 (02:24→20:04)
[2018-02-05] MEDS: IPRATROPIUM BROMIDE 0.02% NEB 0.5 MG/2.5 ML AMPUL NEB SCH ×4 (02:24→20:04)
[2018-02-05 04:07] LABS: ABSOLUTE BASOPHILS # (AUTO) 0.1 10^3/uL (0.0-0.2); ABSOLUTE EOSINOPHILS # (AUTO) 0.3 10^3/uL (0.0-0.6); ABSOLUTE MONOCYTES (AUTO) 0.5 10^3/uL (0.1-1.4); ABSOLUTE NEUT (AUTO) 3.6 10^3/uL (1.7-8.2); EOSINOPHILS % (AUTO) 5.5 % (0-6); HEMATOCRIT 26.6 % (36.0-47.0); LYMPHOCYTES % (AUTO) 18.7 % (13-45); MEAN CORPUSCULAR HEMOGLOBIN 29.3 pg (27.0-33.4); MEAN CORPUSCULAR VOLUME 86 fl (80-97); MONOCYTES % (AUTO) 9.9 % (3-13); PLATELET COUNT 306 10^3/uL (150-450); RED BLOOD COUNT 3.08 10^6/uL (3.72-5.28); RED CELL DISTRIBUTION WIDTH 15.7 % (11.5-14.0); SEGMENTED NEUTROPHILS % (AUTO) 64.9 % (42-78); TOTAL CELLS COUNTED % (AUTO) 100 %; WHITE BLOOD COUNT 5.6 10^3/uL (4.0-10.5)
[2018-02-05 04:19] LABS: ANION GAP 7 (5-19); BLOOD UREA NITROGEN 9 mg/dL (7-20); CALCIUM 8.7 mg/dL (8.4-10.2); CARBON DIOXIDE 29 mmol/L (22-30); CHLORIDE 107 mmol/L (98-107); GLUCOSE 94 mg/dL (75-110); POTASSIUM 3.9 mmol/L (3.6-5.0); SODIUM 143.2 mmol/L (137-145)
[2018-02-05] MEDS: LANSOPRAZOLE 30 MG TAB.RAP.DR PO SCH (05:28)
[2018-02-05] MEDS: ALPRAZOLAM 0.25 MG TABLET PO SCH ×3 (05:28→22:39)
[2018-02-05] MEDS: HEPARIN SOD (PORCINE) 5,000 UNIT/ML 1 ML SYRINGE SUBCUT SCH ×3 (05:29→22:39)
[2018-02-05 06:52] LABS: ARTERIAL BLOOD BASE EXCESS 2.8 mmol/L; ARTERIAL BLOOD H2CO3 1.15 mmol/L (1.05-1.35); ARTERIAL BLOOD HCO3 26.7 mmol/L (20-24); ARTERIAL BLOOD O2 SATURATION 93.3 % (94-98); ARTERIAL BLOOD PCO2 38.1 mmHg (35-45); ARTERIAL BLOOD PH 7.46 (7.35-7.45); ARTERIAL BLOOD PO2 62.9 mmHg (80-100); ARTERIAL BLOOD TOTAL CO2 27.9 mmol/L (21-25)
[2018-02-05 06:58] LABS: ARTERIAL BLOOD FIO2 40%
--- NOTE | 2018-02-05 07:23 | RADIOLOGY REPORT (SQ) ---
EXAM DESCRIPTION: X-ray single view chest. CLINICAL HISTORY: 68 years Female, resp failure COMPARISON: Prior portable chest x-rays performed on 02/01/2018 at 2:45 PM and 5:52 AM. TECHNIQUE: Single portable view of the chest performed on 02/05/2018 at 6:45 AM FINDINGS: The lungs are well expanded. There is patchy airspace disease throughout both lungs which may be due to a combination of pulmonary edema, atelectasis and possibly pleural fluid. There is chronic deformity of the hemithoraces greater on the left. There is no evidence of a pneumothorax. The cardiac silhouette is stable and enlarged. The mediastinal contours are normal. No acute osseous abnormality is identified. There are remote postsurgical changes of the thoracic spine consistent with spinal fixation. No focal soft tissue abnormalities are seen. Lines and tubes: The endotracheal tube and feeding tube are grossly stable. IMPRESSION: 1. Overall, no significant interval change in the appearance of the chest. There is diffuse bilateral airspace disease which may represent a combination of pulmonary edema, atelectasis and possibly pleural fluid. 2. Grossly stable life support lines and tubes. 3. Other chronic changes as described above
[2018-02-05] MEDS: ACETYLCYSTEINE 20% SOLN 800 MG/4 ML VIAL.NEB NEB SCH ×2 (07:57→20:03)
[2018-02-05] MEDS: MORPHINE SULFATE 10 MG/ML INJ IV PRN ×4 (08:35→22:39)
[2018-02-05] MEDS: METOPROLOL TARTRATE 50 MG TABLET GT SCH ×2 (10:26→22:38)
[2018-02-05] MEDS ORDERED: FUROSEMIDE INJ/PF 20 MG/2 ML SDV IV SCH (11:00)
--- NOTE | 2018-02-05 11:00 | PDOC PROGRESS REPORT ---
Subjective Progress Note for:: 02/05/18 Subjective:: Patient was admitted for the respiratory failure and currently on a vent The family on a bedside Patient's also seen by Dr. Schwab Reason For Visit: ACUTE RESPIRATORY FAILURE, BILATERAL PNEUMONIA Physical Exam Vital Signs: Temp Pulse Resp BP Pulse Ox 98.8 F 103 H 22 H 123/55 L 92 02/05/18 10:05 02/05/18 10:00 02/05/18 10:05 02/05/18 10:05 02/05/18 10:05 Intake & Output 02/04/18 02/05/18 02/06/18 06:59 06:59 05:59 Intake Total 3179 3290 Output Total 3325 3425 885 Balance -146 -135 -885 Weight 77.4 kg 76.6 kg Physical Exam: Currently on ventilation support General appearance: PRESENT: no acute distress Eye exam: PRESENT: PERRLA Mouth exam: PRESENT: neck supple Respiratory exam: PRESENT: decreased breath sounds Cardiovascular exam: PRESENT: +S1, +S2 GI/Abdominal exam: PRESENT: normal bowel sounds, soft Extremities exam: PRESENT: pedal edema Neurological exam: PRESENT: altered Skin exam: PRESENT: dry Results Laboratory Results: 02/05/18 03:57 02/05/18 03:57 02/05/18 02/05/18 02/05/18 03:57 03:57 06:15 WBC 5.6 RBC 3.08 L Hgb 9.0 L Hct 26.6 L MCV 86 MCH 29.3 MCHC 34.0 RDW 15.7 H Plt Count 306 Seg Neutrophils % 64.9 Lymphocytes % 18.7 Monocytes % 9.9 Eosinophils % 5.5 Basophils % 1.0 Absolute Neutrophils 3.6 Absolute Lymphocytes 1.0 Absolute Monocytes 0.5 Absolute Eosinophils 0.3 Absolute Basophils 0.1 Carbonic Acid 1.15 HCO3/H2CO3 Ratio 23:1 ABG pH 7.46 H ABG pCO2 38.1 ABG pO2 62.9 L ABG HCO3 26.7 H ABG O2 Saturation 93.3 L ABG Base Excess 2.8 FiO2 40% Sodium 143.2 Potassium 3.9 Chloride 107 Carbon Dioxide 29 Anion Gap 7 BUN 9 Creatinine 0.52 Est GFR ( Amer) > 60 Est GFR (Non-Af Amer) > 60 Glucose 94 Calcium 8.7 Magnesium 2.1 01/24/18 01/25/18 01/25/18 23:22 05:58 05:58 Creatine Kinase < 20 L CK-MB (CK-2) 1.51 1.15 Troponin I < 0.012 < 0.012 01/25/18 01/25/18 11:09 11:09 Creatine Kinase < 20 L CK-MB (CK-2) 0.57 Troponin I < 0.012 Impressions: Abdomen/Pelvis CT 01/31/18 20:00 IMPRESSION: Mild fluid layering in the pelvis. No evidence for acute appendicitis. KUB X-Ray 02/01/18 00:00 IMPRESSION: NG tube has been placed as described. Tip appears to lie within the stomach. Chest CT 02/01/18 21:00 IMPRESSION: Slight improvement in patchy groundglass opacities over the lung bases with persistent consolidative changes in each lung base. Cardiomegaly. Evidence of prior granulomatous disease. Endotracheal tube and enteric tube in place. TECHNICAL DOCUMENTATION: Quality ID # 436: Final reports with documentation of one or more dose reduction techniques (e.g., Automated exposure control, adjustment of the mA and/or kV according to patient size, use of iterative reconstruction technique) 2010 [employer] All Rights Reserved Facial Bones CT 02/01/18 21:00 IMPRESSION: Right greater than left sphenoid sinusitis. Mucosal thickening of the nasal cavities bilaterally. Partial opacification of the visualized right mastoid air cells. TECHNICAL DOCUMENTATION: Quality ID # 436: Final reports with documentation of one or more dose reduction techniques (e.g., Automated exposure control, adjustment of the mA and/or kV according to patient size, use of iterative reconstruction technique) 2010 [employer] ([employer] All Rights Reserved Chest X-Ray 02/05/18 06:00 IMPRESSION: 1. Overall, no significant interval change in the appearance of the chest. There is diffuse bilateral airspace disease which may represent a combination of pulmonary edema, atelectasis and possibly pleural fluid. 2. Grossly stable life support lines and tubes. 3. Other chronic changes as described above Assessment & Plan - Diagnosis (1) Acute respiratory failure with hypoxia and hypercapnia Is this a current diagnosis for this admission?: Yes Plan: Currently on a ventilation support (2) Chronic obstructive pulmonary disease Qualifiers: COPD type: unspecified COPD Qualified Code(s): J44.9 - Chronic obstructive pulmonary disease, unspecified Is this a current diagnosis for this admission?: Yes (3) Bilateral pneumonia Qualifiers: Pneumonia type: due to unspecified organism Lung location: unspecified part of lung Qualified Code(s): J18.9 - Pneumonia, unspecified organism Is this a current diagnosis for this admission?: Yes Plan: IV antibiotic (4) Sepsis Qualifiers: Sepsis type: sepsis due to unspecified organism Qualified Code(s): A41.9 - Sepsis, unspecified organism Is this a current diagnosis for this admission?: Yes (5) Post-polio syndrome Is this a current diagnosis for this admission?: Yes - Time Time Spent with patient: 25-34 minutes Medications reviewed and adjusted accordingly: Yes Anticipated discharge: Other Within: Other - Inpatient Certification Based on my medical assessment, after consideration of the patient's comorbidities, presenting symptoms, or acuity I expect that the services needed warrant INPATIENT care.: Yes I certify that my determination is in accordance with my understanding of Medicare's requirements for reasonable and necessary INPATIENT services [42 CFR 412.3e].: Yes Medical Necessity: Need for IV Antibiotics Post Hospital Care: D/C Vp Of Customer Experience Strategy Documentation - Plan Summary Plan Summary: Patient's wrist was total 125 cc IV fluid Patient have some significant swelling in upper and lower extremities We will cut down the total 75 Lasix 10 mg IV daily Continues to IV antibiotic
[2018-02-05] MEDS: GENTAMICIN SULFATE 100 MG in DEXTROSE 5%-WATER 100 ML IV SCH ×2 (11:18→22:44)
[2018-02-06] MEDS: LEVALBUTEROL HCL NEB 1.25 MG/3 ML AMPUL NEB SCH ×4 (01:15→20:51)
[2018-02-06] MEDS: IPRATROPIUM BROMIDE 0.02% NEB 0.5 MG/2.5 ML AMPUL NEB SCH ×4 (01:15→20:51)
[2018-02-06] MEDS: PROPOFOL 1,000 MG/100 ML INFUS..BTL IV PRN ×5 (01:58→19:23)
[2018-02-06] MEDS: IMIPENEM/CILASTATIN SODIUM 500 MG in NORMAL SALINE 100 ML IV SCH ×4 (02:00→21:34)
[2018-02-06] MEDS: DEXTROSE 5%-1/2 NORMAL SALINE 1,000 ML IV PRN (04:30)
[2018-02-06 04:52] LABS: ABSOLUTE EOSINOPHILS # (AUTO) 0.3 10^3/uL (0.0-0.6); ABSOLUTE LYMPHOCYTES (AUTO) 0.9 10^3/uL (0.5-4.7); ABSOLUTE MONOCYTES (AUTO) 0.4 10^3/uL (0.1-1.4); ABSOLUTE NEUT (AUTO) 4.3 10^3/uL (1.7-8.2); BASOPHILS % (AUTO) 0.5 % (0-2); EOSINOPHILS % (AUTO) 4.9 % (0-6); HEMATOCRIT 25.2 % (36.0-47.0); HEMOGLOBIN 8.5 g/dL (12.0-15.5); LYMPHOCYTES % (AUTO) 14.8 % (13-45); MEAN CORPUSCULAR HGB CONC 33.6 g/dL (32.0-36.0); MEAN CORPUSCULAR VOLUME 86 fl (80-97); MONOCYTES % (AUTO) 6.9 % (3-13); PLATELET COUNT 323 10^3/uL (150-450); RED BLOOD COUNT 2.92 10^6/uL (3.72-5.28); RED CELL DISTRIBUTION WIDTH 15.7 % (11.5-14.0); SEGMENTED NEUTROPHILS % (AUTO) 72.9 % (42-78); TOTAL CELLS COUNTED % (AUTO) 100 %; WHITE BLOOD COUNT 5.9 10^3/uL (4.0-10.5)
[2018-02-06 05:11] LABS: ANION GAP 7 (5-19); BLOOD UREA NITROGEN 12 mg/dL (7-20); CALCIUM 8.6 mg/dL (8.4-10.2); CARBON DIOXIDE 28 mmol/L (22-30); CHLORIDE 106 mmol/L (98-107); GLUCOSE 96 mg/dL (75-110); POTASSIUM 3.7 mmol/L (3.6-5.0); SODIUM 141.4 mmol/L (137-145); TRIGLYCERIDES 178 mg/dL (<150)
[2018-02-06] MEDS: HEPARIN SOD (PORCINE) 5,000 UNIT/ML 1 ML SYRINGE SUBCUT SCH ×3 (05:37→21:35)
[2018-02-06] MEDS: ALPRAZOLAM 0.25 MG TABLET PO SCH ×3 (05:37→21:33)
[2018-02-06] MEDS: LANSOPRAZOLE 30 MG TAB.RAP.DR PO SCH (05:37)
[2018-02-06 05:39] LABS: ARTERIAL BLOOD BASE EXCESS 2.6 mmol/L; ARTERIAL BLOOD H2CO3 1.28 mmol/L (1.05-1.35); ARTERIAL BLOOD HCO3 27.3 mmol/L (20-24); ARTERIAL BLOOD O2 SATURATION 89.2 % (94-98); ARTERIAL BLOOD PCO2 42.5 mmHg (35-45); ARTERIAL BLOOD PH 7.43 (7.35-7.45); ARTERIAL BLOOD PO2 54.9 mmHg (80-100); ARTERIAL BLOOD TOTAL CO2 28.6 mmol/L (21-25)
[2018-02-06 05:40] LABS: ARTERIAL BLOOD FIO2 30%
[2018-02-06] MEDS: ACETYLCYSTEINE 20% SOLN 800 MG/4 ML VIAL.NEB NEB SCH (07:34)
--- NOTE | 2018-02-06 08:24 | RADIOLOGY REPORT (SQ) ---
EXAM DESCRIPTION: CHEST SINGLE VIEW COMPLETED DATE/TIME: 02/06/2018 7:19 am REASON FOR STUDY: resp failure COMPARISON: 02/05/2018. EXAM PARAMETERS: NUMBER OF VIEWS: One view. TECHNIQUE: Single frontal radiographic view of the chest acquired. RADIATION DOSE: NA LIMITATIONS: None. FINDINGS: LUNGS AND PLEURA: Diffuse airspace disease, unchanged. MEDIASTINUM AND HILAR STRUCTURES: No masses. Contour normal. HEART AND VASCULAR STRUCTURES: Cardiomegaly unchanged. BONES: No acute findings. Old deformity of the bony thorax. HARDWARE: Stable endotracheal tube and nasogastric tube. Tip of the endotracheal tube is near the ma instem bronchus but appears unchanged. Hardware in the spine. OTHER: No other significant finding. IMPRESSION: NO CHANGE IN APPEARANCE OF THE CHEST. TECHNICAL DOCUMENTATION: JOB ID: [id number] [employer]- All Rights Reserved Reading location - IP/workstation name: [email or web address]
--- NOTE | 2018-02-06 09:26 | PDOC PROGRESS REPORT ---
Subjective Progress Note for:: 02/06/18 Subjective:: Recent is currently doing same Chest x-ray showed diffuse air space disease Patient is currently on antibiotic Patient still puffy on the upper and lower extremities Patient was given Lasix 10 mg IV increase more urine output Still on vent Reason For Visit: ACUTE RESPIRATORY FAILURE, BILATERAL PNEUMONIA Physical Exam Vital Signs: Temp Pulse Resp BP Pulse Ox 99.3 F 112 H 22 H 148/89 H 93 02/06/18 08:00 02/06/18 08:12 02/06/18 08:12 02/06/18 08:00 02/06/18 08:12 Intake & Output 02/05/18 02/06/18 02/07/18 07:59 06:59 06:59 Intake Total 64 Output Total 185 Balance -121 Weight Physical Exam: Currently on ventilation support Head exam: PRESENT: normocephalic Eye exam: PRESENT: PERRLA Respiratory exam: PRESENT: decreased breath sounds Cardiovascular exam: PRESENT: +S1, +S2 GI/Abdominal exam: PRESENT: normal bowel sounds, soft Extremities exam: PRESENT: pedal edema Additional comments: Currently under sedation Results Laboratory Results: 02/06/18 04:44 02/06/18 04:44 02/06/18 02/06/18 02/06/18 04:44 04:44 05:30 WBC 5.9 RBC 2.92 L Hgb 8.5 L Hct 25.2 L MCV 86 MCH 29.0 MCHC 33.6 RDW 15.7 H Plt Count 323 Seg Neutrophils % 72.9 Lymphocytes % 14.8 Monocytes % 6.9 Eosinophils % 4.9 Basophils % 0.5 Absolute Neutrophils 4.3 Absolute Lymphocytes 0.9 Absolute Monocytes 0.4 Absolute Eosinophils 0.3 Absolute Basophils 0.0 Carbonic Acid 1.28 HCO3/H2CO3 Ratio 21:1 ABG pH 7.43 ABG pCO2 42.5 ABG pO2 54.9 L ABG HCO3 27.3 H ABG O2 Saturation 89.2 L ABG Base Excess 2.6 FiO2 30% Sodium 141.4 Potassium 3.7 Chloride 106 Carbon Dioxide 28 Anion Gap 7 BUN 12 Creatinine 0.47 L Est GFR ( Amer) > 60 Est GFR (Non-Af Amer) > 60 Glucose 96 Calcium 8.6 Magnesium 2.1 Triglycerides 178 H 01/24/18 01/25/18 01/25/18 23:22 05:58 05:58 Creatine Kinase < 20 L CK-MB (CK-2) 1.51 1.15 Troponin I < 0.012 < 0.012 01/25/18 01/25/18 11:09 11:09 Creatine Kinase < 20 L CK-MB (CK-2) 0.57 Troponin I < 0.012 Impressions: Abdomen/Pelvis CT 01/31/18 20:00 IMPRESSION: Mild fluid layering in the pelvis. No evidence for acute appendicitis. KUB X-Ray 02/01/18 00:00 IMPRESSION: NG tube has been placed as described. Tip appears to lie within the stomach. Chest CT 02/01/18 21:00 IMPRESSION: Slight improvement in patchy groundglass opacities over the lung bases with persistent consolidative changes in each lung base. Cardiomegaly. Evidence of prior granulomatous disease. Endotracheal tube and enteric tube in place. TECHNICAL DOCUMENTATION: Quality ID # 436: Final reports with documentation of one or more dose reduction techniques (e.g., Automated exposure control, adjustment of the mA and/or kV according to patient size, use of iterative reconstruction technique) 2010 [employer]- All Rights Reserved Facial Bones CT 02/01/18 21:00 IMPRESSION: Right greater than left sphenoid sinusitis. Mucosal thickening of the nasal cavities bilaterally. Partial opacification of the visualized right mastoid air cells. TECHNICAL DOCUMENTATION: Quality ID # 436: Final reports with documentation of one or more dose reduction techniques (e.g., Automated exposure control, adjustment of the mA and/or kV according to patient size, use of iterative reconstruction technique) 2010 [employer]- All Rights Reserved Chest X-Ray 02/06/18 06:00 IMPRESSION: NO CHANGE IN APPEARANCE OF THE CHEST. Assessment & Plan - Diagnosis (1) Acute respiratory failure with hypoxia and hypercapnia Is this a current diagnosis for this admission?: Yes Plan: Currently on a ventilation support (2) Chronic obstructive pulmonary disease Qualifiers: COPD type: unspecified COPD Qualified Code(s): J44.9 - Chronic obstructive pulmonary disease, unspecified Is this a current diagnosis for this admission?: Yes (3) Bilateral pneumonia Qualifiers: Pneumonia type: due to unspecified organism Lung location: unspecified part of lung Qualified Code(s): J18.9 - Pneumonia, unspecified organism Is this a current diagnosis for this admission?: Yes Plan: IV antibiotic (4) Sepsis Qualifiers: Sepsis type: sepsis due to unspecified organism Qualified Code(s): A41.9 - Sepsis, unspecified organism Is this a current diagnosis for this admission?: Yes (5) Post-polio syndrome Is this a current diagnosis for this admission?: Yes - Time Time Spent with patient: 25-34 minutes Medications reviewed and adjusted accordingly: Yes Anticipated discharge: Other Within: Other - Inpatient Certification Based on my medical assessment, after consideration of the patient's comorbidities, presenting symptoms, or acuity I expect that the services needed warrant INPATIENT care.: Yes I certify that my determination is in accordance with my understanding of Medicare's requirements for reasonable and necessary INPATIENT services [42 CFR 412.3e].: Yes Medical Necessity: Need for IV Antibiotics Post Hospital Care: D/C Senior Application Security Consultant Documentation - Plan Summary Plan Summary: Continues to IV antibiotic follow with the pulmonary
[2018-02-06] MEDS: GENTAMICIN SULFATE 100 MG in DEXTROSE 5%-WATER 100 ML IV SCH (09:57)
[2018-02-06] MEDS: METOPROLOL TARTRATE 50 MG TABLET GT SCH ×2 (09:57→21:34)
[2018-02-06] MEDS: FUROSEMIDE INJ/PF 20 MG/2 ML SDV IV SCH ×2 (09:58→21:34)
[2018-02-06] MEDS: MORPHINE SULFATE 10 MG/ML INJ IV PRN ×2 (10:09→19:34)
[2018-02-06 10:29] LABS: GENTAMICIN-TROUGH 2.3 ug/mL (<2.0)
[2018-02-06] MEDS ORDERED: FENTANYL 12 MCG/HR PATCH.TD72 TD SCH (12:00)
[2018-02-06 12:37] LABS: GENTAMICIN-PEAK 7.3 ug/mL (5.0-10.0)
[2018-02-06] MEDS: METOPROLOL TARTRATE PF/INJ 5 MG/5 ML SDV IV PRN ×2 (14:38→19:34)
[2018-02-06] MEDS: ACETAMINOPHEN SOLN 325 MG/10.15 ML UDCUP GT PRN (19:31)
--- NOTE | 2018-02-06 22:06 | PROGRESS NOTE E ---
Progress Note NAME: MITCH ORELLANA : 1950 AGE: 68Y DATE: 02/06/2018 ROOM: 607 SUBJECTIVE: The patient is a 68-year-old female who came in, in acute respiratory failure requiring invasive mechanical ventilation and was treated for pulmonary edema, pneumonia, severe sepsis. The patient has not been spiking a fever for the last 2-3 days. Has scanty to mild endotracheal tube secretions. The patient tolerated the NG tube feeding, minimal to no gastric residual, had watery stool. No vomiting noted. Performed a spontaneous breathing trial today, the patient failed. When the spontaneous breathing trial was performed the patient became tachypneic, respiratory rate of 32-33 and the patient's heart rate went up to 112 to 120 beats per minute. Performed a spontaneous breathing trial at 9 a.m. this morning as well. At 9 a.m. sedation vacation was performed but the patient's heart rate went up to 150-154 beats per minute. The patient was given 2 mg of morphine IV and started on fentanyl patch 25 mcg and Xanax increased to 0.5 mg q.8 hours. The patient had her first dose earlier today. Repeated sedation vacation at 1 p.m. The patient appeared to be doing well with sedation vacation. Performed a spontaneous breathing trial using SIMV rate of 2, however, the patient became tachypneic and tachycardic to 120 per hour and tachypneic more to 32 breaths per minute. The patient was placed back on the previous SIMV setting at a rate of 20 and IV sedation was restarted using propofol to keep light sedation. OBJECTIVE: GENERAL: The patient on exam appeared awake but seemed to be agitated and afebrile, not in apparent respiratory distress. VITAL SIGNS: Temperature of 99.7 with a T-max of 99.7, blood pressure is 138/71, pulse rate of 98, respiratory rate is 32, saturation is 93% on FiO2 of 30%, SIMV rate of 20, tidal volume of 350, pressure support 10, PEEP of 5, minute ventilation of 7.5 rate, exhaled spontaneous breathing trial tidal volume of 310, sometimes less than 200 during the spontaneous breathing trial. EYES: No jaundice or pallor. EARS, NOSE, AND THROAT: No ear drainage. No nasal discharge. CHEST AND LUNGS: No wheezing, no rhonchi, no coarse crackles. CARDIOVASCULAR: S1, S2 distinct. Normal rate and regular rhythm. ABDOMEN: Flabby, positive bowel sounds, soft, nondistended. EXTREMITIES: No joint swelling, no cellulitis. INTAKE/OUTPUT: The intake was 3290 mL yesterday with an output of about 3425 mL with a negative fluid balance of -135 mL. Today at 7 the intake was 3334 mL, output is 3860 mL with a negative balance of 136 mL. LABORATORY DATA: CBC done today showed a white count of 5.9, hemoglobin is 8.5, hematocrit is 25.2, platelet count is 223. ABG done this morning showed; pH of 7.43, pCO2 of 42.5, pO2 of 54.9, ABG saturation is 89. Chemistry done today showed sodium is 141, potassium 3.7, chloride 106, CO2 is 28, BUN is 12, creatinine 0.47, glucose 96, calcium 8.6, magnesium is 2.1. ASSESSMENT: 1. ACUTE RESPIRATORY FAILURE REQUIRING INVASIVE MECHANICAL VENTILATION. The patient failed spontaneous breathing trial today. 2. PNEUMONIA, PULMONARY EDEMA. Appeared to be improving. 3. SEVERE ANXIETY/CHRONIC PAIN. The patient was started on fentanyl patch 25 mcg/hr today and Xanax increased to 0.5 mg q.8 hours. 4. PNEUMONIA. Started on IV Primaxin and IV azithromycin. 5. PRESENT LOW GRADE FEVER. Appeared to be improving and has been afebrile for the last 2-3 days after starting IV Primaxin. 6. SPHENOID SINUSITIS. Currently on IV Primaxin, IV gentamicin. The patient seemed to be improving. Temperature has been down and white blood cell count has been normal. PLAN: We will continue to optimize ventilatory support. Consider spontaneous breathing trial again tomorrow. We will give the patient another 2 days. If the patient continues to fail spontaneous breathing trial we will consider consulting for tracheostomy tube placement on Wednesday. DICTATING PHYSICIAN: ALPA GARCIA MD,ANNETTE,MPH [id number] PHY#: [id number] ID: [id number] JOB#: [id number] ACCT: [id number] cc: > MTDD
[2018-02-07] MEDS: PROPOFOL 1,000 MG/100 ML INFUS..BTL IV PRN ×5 (00:50→18:12)
[2018-02-07] MEDS: LEVALBUTEROL HCL NEB 1.25 MG/3 ML AMPUL NEB SCH ×4 (02:15→19:52)
[2018-02-07] MEDS: IPRATROPIUM BROMIDE 0.02% NEB 0.5 MG/2.5 ML AMPUL NEB SCH ×4 (02:15→19:52)
[2018-02-07] MEDS: MORPHINE SULFATE 10 MG/ML INJ IV PRN ×3 (02:30→21:02)
[2018-02-07 04:00] LABS: ABSOLUTE EOSINOPHILS # (AUTO) 0.3 10^3/uL (0.0-0.6); ABSOLUTE MONOCYTES (AUTO) 0.4 10^3/uL (0.1-1.4); ABSOLUTE NEUT (AUTO) 3.9 10^3/uL (1.7-8.2); BASOPHILS % (AUTO) 0.7 % (0-2); EOSINOPHILS % (AUTO) 5.7 % (0-6); HEMATOCRIT 25.9 % (36.0-47.0); HEMOGLOBIN 8.9 g/dL (12.0-15.5); LYMPHOCYTES % (AUTO) 17.3 % (13-45); MEAN CORPUSCULAR HEMOGLOBIN 29.5 pg (27.0-33.4); MEAN CORPUSCULAR HGB CONC 34.5 g/dL (32.0-36.0); MEAN CORPUSCULAR VOLUME 85 fl (80-97); MONOCYTES % (AUTO) 7.9 % (3-13); PLATELET COUNT 319 10^3/uL (150-450); RED BLOOD COUNT 3.03 10^6/uL (3.72-5.28); RED CELL DISTRIBUTION WIDTH 15.8 % (11.5-14.0); SEGMENTED NEUTROPHILS % (AUTO) 68.4 % (42-78); TOTAL CELLS COUNTED % (AUTO) 100 %; WHITE BLOOD COUNT 5.7 10^3/uL (4.0-10.5)
[2018-02-07 04:09] LABS: ANION GAP 10 (5-19); BLOOD UREA NITROGEN 12 mg/dL (7-20); CALCIUM 8.9 mg/dL (8.4-10.2); CARBON DIOXIDE 28 mmol/L (22-30); CHLORIDE 105 mmol/L (98-107); GLUCOSE 88 mg/dL (75-110); POTASSIUM 3.5 mmol/L (3.6-5.0)
[2018-02-07] MEDS: IMIPENEM/CILASTATIN SODIUM 500 MG in NORMAL SALINE 100 ML IV SCH ×4 (06:48→21:07)
[2018-02-07] MEDS: LANSOPRAZOLE 30 MG TAB.RAP.DR PO SCH (06:50)
[2018-02-07] MEDS: HEPARIN SOD (PORCINE) 5,000 UNIT/ML 1 ML SYRINGE SUBCUT SCH ×3 (06:51→21:06)
[2018-02-07] MEDS: ALPRAZOLAM 0.25 MG TABLET PO SCH ×3 (06:51→21:07)
[2018-02-07 07:05] LABS: ARTERIAL BLOOD BASE EXCESS 4.9 mmol/L; ARTERIAL BLOOD H2CO3 1.14 mmol/L (1.05-1.35); ARTERIAL BLOOD HCO3 28.5 mmol/L (20-24); ARTERIAL BLOOD O2 SATURATION 97.1 % (94-98); ARTERIAL BLOOD PCO2 37.8 mmHg (35-45); ARTERIAL BLOOD TOTAL CO2 29.6 mmol/L (21-25)
[2018-02-07 07:06] LABS: ARTERIAL BLOOD FIO2 40%
[2018-02-07] MEDS: DEXTROSE 5%-1/2 NORMAL SALINE 1,000 ML IV PRN (08:07)
[2018-02-07] MEDS: FUROSEMIDE INJ/PF 20 MG/2 ML SDV IV SCH ×2 (10:14→21:06)
[2018-02-07] MEDS: GENTAMICIN SULFATE 100 MG in DEXTROSE 5%-WATER 100 ML IV SCH (10:14)
[2018-02-07] MEDS: METOPROLOL TARTRATE 50 MG TABLET GT SCH ×2 (10:14→21:06)
--- NOTE | 2018-02-07 19:35 | RADIOLOGY REPORT (SQ) ---
EXAM DESCRIPTION: CHEST SINGLE VIEW COMPLETED DATE/TIME: 02/07/2018 7:11 pm REASON FOR STUDY: tube placement COMPARISON: 02/06/2018 EXAM PARAMETERS: NUMBER OF VIEWS: One view TECHNIQUE: Single frontal radiograph of the chest. RADIATION DOSE: N/A LIMITATIONS: None. FINDINGS: TEMPORARY SUPPORT DEVICES:ETT in expected location. NG tube courses below the kandy-diaphr agm in to the stomach. LUNGS AND PLEURA: Parenchymal opacities as before probable effusions. No masses. No pneumothorax. MEDIASTINUM AND HILAR STRUCTURES: No masses. Contour normal. HEART AND VASCULAR STRUCTURES: Heart is enlarged. Vascular congestion. Aorta normal for age. BONES: No acute findings. OTHER: No other significant finding. IMPRESSION: Stable appearance of the chest. SUPPORT DEVICE(S) IN EXPECTED LOCATIONS. TECHNICAL DOCUMENTATION: JOB ID: [id number] [employer]- All Rights Reserved Reading location - IP/workstation name: [email or web address]
--- NOTE | 2018-02-07 20:34 | PDOC PROGRESS REPORT ---
Subjective Progress Note for:: 02/07/18 Subjective:: Patient still on mechanical ventilation Reason For Visit: ACUTE RESPIRATORY FAILURE, BILATERAL PNEUMONIA Physical Exam Vital Signs: Temp Pulse Resp BP Pulse Ox 101.1 F H 124 H 24 H 138/81 H 96 02/07/18 20:00 02/07/18 19:52 02/07/18 19:52 02/07/18 17:55 02/07/18 19:52 Intake & Output 02/06/18 02/07/18 02/08/18 06:59 06:59 06:59 Intake Total 2651 1032 Output Total 8425 3609 Balance -6665 -252 Weight 73.6 kg Eye exam: PRESENT: PERRLA Respiratory exam: PRESENT: decreased breath sounds Cardiovascular exam: PRESENT: +S1, +S2 Results Laboratory Results: 02/07/18 03:45 02/07/18 03:45 02/07/18 02/07/18 02/07/18 03:45 03:45 06:45 WBC 5.7 RBC 3.03 L Hgb 8.9 L Hct 25.9 L MCV 85 MCH 29.5 MCHC 34.5 RDW 15.8 H Plt Count 319 Seg Neutrophils % 68.4 Lymphocytes % 17.3 Monocytes % 7.9 Eosinophils % 5.7 Basophils % 0.7 Absolute Neutrophils 3.9 Absolute Lymphocytes 1.0 Absolute Monocytes 0.4 Absolute Eosinophils 0.3 Absolute Basophils 0.0 Carbonic Acid 1.14 HCO3/H2CO3 Ratio 25:1 ABG pH 7.50 H ABG pCO2 37.8 ABG pO2 85.0 ABG HCO3 28.5 H ABG O2 Saturation 97.1 ABG Base Excess 4.9 FiO2 40% Sodium 143.0 Potassium 3.5 L Chloride 105 Carbon Dioxide 28 Anion Gap 10 BUN 12 Creatinine 0.46 L Est GFR ( Amer) > 60 Est GFR (Non-Af Amer) > 60 Glucose 88 Calcium 8.9 Magnesium 2.2 01/24/18 01/25/18 01/25/18 23:22 05:58 05:58 Creatine Kinase < 20 L CK-MB (CK-2) 1.51 1.15 Troponin I < 0.012 < 0.012 01/25/18 01/25/18 11:09 11:09 Creatine Kinase < 20 L CK-MB (CK-2) 0.57 Troponin I < 0.012 Impressions: Abdomen/Pelvis CT 01/31/18 20:00 IMPRESSION: Mild fluid layering in the pelvis. No evidence for acute appendicitis. KUB X-Ray 02/01/18 00:00 IMPRESSION: NG tube has been placed as described. Tip appears to lie within the stomach. Chest CT 02/01/18 21:00 IMPRESSION: Slight improvement in patchy groundglass opacities over the lung bases with persistent consolidative changes in each lung base. Cardiomegaly. Evidence of prior granulomatous disease. Endotracheal tube and enteric tube in place. TECHNICAL DOCUMENTATION: Quality ID # 436: Final reports with documentation of one or more dose reduction techniques (e.g., Automated exposure control, adjustment of the mA and/or kV according to patient size, use of iterative reconstruction technique) 2010 [employer]- All Rights Reserved Facial Bones CT 02/01/18 21:00 IMPRESSION: Right greater than left sphenoid sinusitis. Mucosal thickening of the nasal cavities bilaterally. Partial opacification of the visualized right mastoid air cells. TECHNICAL DOCUMENTATION: Quality ID # 436: Final reports with documentation of one or more dose reduction techniques (e.g., Automated exposure control, adjustment of the mA and/or kV according to patient size, use of iterative reconstruction technique) 2010 [employer]- All Rights Reserved Chest X-Ray 02/07/18 00:00 IMPRESSION: Stable appearance of the chest. SUPPORT DEVICE(S) IN EXPECTED LOCATIONS. Assessment & Plan - Diagnosis (1) Acute respiratory failure with hypoxia and hypercapnia Is this a current diagnosis for this admission?: Yes (2) Bilateral pneumonia Qualifiers: Pneumonia type: due to unspecified organism Lung location: unspecified part of lung Qualified Code(s): J18.9 - Pneumonia, unspecified organism Is this a current diagnosis for this admission?: Yes (3) Sepsis Qualifiers: Sepsis type: sepsis due to unspecified organism Qualified Code(s): A41.9 - Sepsis, unspecified organism Is this a current diagnosis for this admission?: Yes (4) Post-polio syndrome Is this a current diagnosis for this admission?: Yes (5) Scoliosis (and kyphoscoliosis), idiopathic Is this a current diagnosis for this admission?: Yes (6) Hypokalemia Is this a current diagnosis for this admission?: Yes - Plan Summary Plan Summary: She may require tracheostomy because she is not weanable
[2018-02-08] MEDS: LEVALBUTEROL HCL NEB 1.25 MG/3 ML AMPUL NEB SCH ×4 (01:59→20:10)
[2018-02-08] MEDS: IPRATROPIUM BROMIDE 0.02% NEB 0.5 MG/2.5 ML AMPUL NEB SCH ×4 (01:59→20:10)
[2018-02-08] MEDS: IMIPENEM/CILASTATIN SODIUM 500 MG in NORMAL SALINE 100 ML IV SCH ×3 (02:31→15:59)
[2018-02-08] MEDS: MORPHINE SULFATE 10 MG/ML INJ IV PRN ×4 (02:31→18:13)
[2018-02-08] MEDS: METOPROLOL TARTRATE PF/INJ 5 MG/5 ML SDV IV PRN (02:45)
[2018-02-08 05:37] LABS: ABSOLUTE EOSINOPHILS # (AUTO) 0.3 10^3/uL (0.0-0.6); ABSOLUTE LYMPHOCYTES (AUTO) 0.8 10^3/uL (0.5-4.7); ABSOLUTE MONOCYTES (AUTO) 0.5 10^3/uL (0.1-1.4); BASOPHILS % (AUTO) 0.4 % (0-2); EOSINOPHILS % (AUTO) 5.2 % (0-6); HEMATOCRIT 25.6 % (36.0-47.0); HEMOGLOBIN 8.8 g/dL (12.0-15.5); MEAN CORPUSCULAR HEMOGLOBIN 29.3 pg (27.0-33.4); MEAN CORPUSCULAR HGB CONC 34.4 g/dL (32.0-36.0); MEAN CORPUSCULAR VOLUME 85 fl (80-97); MONOCYTES % (AUTO) 6.9 % (3-13); PLATELET COUNT 334 10^3/uL (150-450); RED CELL DISTRIBUTION WIDTH 15.1 % (11.5-14.0); SEGMENTED NEUTROPHILS % (AUTO) 75.5 % (42-78); TOTAL CELLS COUNTED % (AUTO) 100 %; WHITE BLOOD COUNT 6.6 10^3/uL (4.0-10.5)
[2018-02-08 05:53] LABS: ANION GAP 8 (5-19); BLOOD UREA NITROGEN 11 mg/dL (7-20); CALCIUM 8.8 mg/dL (8.4-10.2); CARBON DIOXIDE 29 mmol/L (22-30); CHLORIDE 103 mmol/L (98-107); GLUCOSE 97 mg/dL (75-110); POTASSIUM 3.5 mmol/L (3.6-5.0); SODIUM 140.2 mmol/L (137-145)
[2018-02-08] MEDS: LANSOPRAZOLE 30 MG TAB.RAP.DR PO SCH (06:44)
[2018-02-08] MEDS: HEPARIN SOD (PORCINE) 5,000 UNIT/ML 1 ML SYRINGE SUBCUT SCH ×3 (06:44→21:04)
[2018-02-08] MEDS: ALPRAZOLAM 0.25 MG TABLET PO SCH ×3 (06:45→21:03)
--- NOTE | 2018-02-08 06:47 | RADIOLOGY REPORT (SQ) ---
EXAM DESCRIPTION: XR CHEST 1 VIEW COMPLETED DATE/TME: 02/08/2018 05:00 CLINICAL HISTORY: 68 years Female, on ventilator COMPARISON: One day prior. NUMBER OF VIEWS/TECHNIQUE: 1/AP FINDINGS: Moderate mixed interstitial and airspace opacity, moderately enlarged cardiac silhouette, adequate appearing endotracheal tube, likely adequate enteric tube, thoracic hardware fixation. No pneumothorax. Stable bony thorax. IMPRESSION: No significant change.
[2018-02-08] MEDS: DEXTROSE 5%-1/2 NORMAL SALINE 1,000 ML IV PRN (08:09)
[2018-02-08] MEDS: PROPOFOL 1,000 MG/100 ML INFUS..BTL IV PRN ×2 (08:15)
[2018-02-08] MEDS: ESCITALOPRAM OXALATE 10 MG TABLET PO SCH (09:51)
[2018-02-08] MEDS: METOPROLOL TARTRATE 50 MG TABLET GT SCH ×2 (09:52→21:03)
[2018-02-08] MEDS: FUROSEMIDE INJ/PF 20 MG/2 ML SDV IV SCH ×2 (09:53→21:04)
[2018-02-08] MEDS: MIDAZOLAM HCL 50 MG/100 ML RTUINJ IV PRN ×2 (09:58→19:38)
[2018-02-08] MEDS ORDERED: FENTANYL 25 MCG/HR PATCH.TD72 TD SCH (10:00)
--- NOTE | 2018-02-08 10:41 | PROGRESS NOTE E ---
Progress Note NAME: MITCH ORELLANA : 1950 AGE: 68Y DATE: 02/07/2018 ROOM: 607 SUBJECTIVE: The patient is a 68-year-old female who came with acute respiratory failure requiring invasive mechanical ventilation. The patient treated for pneumonia, pulmonary edema, and sphenoid sinusitis, diarrhea, fever, sepsis. The patient had a spontaneous breathing trial this morning but she failed the spontaneous breathing trial. When patient off ventilation her heart rate up to 130, 120, and 130. Patient's IV sedation was resumed. Has continued with endotracheal tube secretion with a spike of 100.2 degrees Fahrenheit. No vomiting, has watery stool. Patient is tolerating the NG tube feeding. OBJECTIVE: GENERAL: The patient is sedated, slightly febrile with temperature 100.8 degrees Fahrenheit with a T-max of 100.8. VITAL SIGNS: Blood pressure is 130/81, heart rate 119, respiratory rate is 22, saturation is 96% on 40% FiO2. EYES: No jaundice or pallor. EARS, NOSE, AND THROAT: No ear drainage noted. No nasal discharge. CHEST AND LUNGS: No wheezing, no rhonchi, no coarse crackles. CARDIOVASCULAR: S1, S2 distinct. Normal rate and regular rhythm. ABDOMEN: Flabby, positive bowel sounds, soft, nondistended, nontender. EXTREMITIES: No joint swelling, no cellulitis. INPUT AND OUTPUT: On February 07, 2018 the intake is 2651, output is 5155. Patient is now minus 2504 mL. On February 08, 2018 at 7:00 p.m. showed a total intake of 359, output is 1395 with a negative balance of 1336. LABORATORY DATA: CBC done today shows white count of 5.7, hemoglobin 8.9, hematocrit is 35.9, platelet count is 319. ABG done this morning showed a pH of 7.5, PCO2 is 37.8, PO2 is 85. Bicarb is 38.5, saturation is 0.1. Chemistry done today showed sodium of 143, potassium was 3.5, chloride 105, CO2 is 28, BUN is 12, creatinine is 0.46, glucose 88, and calcium is 8.9, and magnesium is 2.2, and glucose 117. ASSESSMENT: 1. ACUTE RESPIRATORY FAILURE REQUIRING INVASIVE MECHANICAL VENTILATION. Not ready to be breath spontaneously yet. Patient failed a spontaneous breathing trial this morning. 2. FEVER, LOW GRADE, 100.8 DEGREES FAHRENHEIT. Etiology to still be determined. 4. PNEUMONIA. Currently appeared to be stable and improving. 5. Sphenoid sinusitis - currently on IV Primaxin and IV gentamicin. PLAN/RECOMMENDATION: 1. We will continue IV antibiotics. 2. We will continue the spontaneous breathing trial every morning to determine whether patient can be extubated or can be liberated from the mechanical ventilator. 3. We will do a chest x-ray after endotracheal tube adjustment. 4. Will consider tracheostomy tube and g-tube placement tomorrow Wednesday if patient continues to fail the spontaneous breathing tria. DICTATING PHYSICIAN: ALPA GARCIA MD,ANNETTE,MPH [id number] PHY#: [id number] ID: [id number] JOB#: [id number] ACCT: [id number] cc: > MTDD
[2018-02-08] MEDS: GENTAMICIN SULFATE 100 MG in DEXTROSE 5%-WATER 100 ML IV SCH (11:18)
[2018-02-08 13:57] LABS: GENTAMICIN-PEAK 4.6 ug/mL (5.0-10.0)
--- NOTE | 2018-02-08 19:22 | PDOC TRANSFER SUMMARY ---
General - Admit/Disc Date/PCP Admission Date/Primary Care Provider: 01/24/18 22:21 KIMI CANELA MD Discharge Date: 02/09/18 - Discharge Diagnosis (1) Acute respiratory failure with hypoxia and hypercapnia Is this a current diagnosis for this admission?: Yes (2) Bilateral pneumonia Is this a current diagnosis for this admission?: Yes (3) Sepsis Is this a current diagnosis for this admission?: Yes (4) Post-polio syndrome Is this a current diagnosis for this admission?: Yes (5) Scoliosis (and kyphoscoliosis), idiopathic Is this a current diagnosis for this admission?: Yes (6) Hypokalemia Is this a current diagnosis for this admission?: Yes - Additional Information Resuscitation Status: Do Not Resuscitate Home Medications: RX: Escitalopram Oxalate [Lexapro] 5 mg PO DAILY 11/25/17 RX: Metoprolol Succinate [Toprol XL 100 mg Tablet] 100 mg PO DAILY 11/25/17 History of Present Illness Admission Date/PCP: 01/24/18 22:21 KIMI CANELA MD History of Present Illness: MITCH ORELLANA is a 68 year old female, She was brought to emergency room unresponsive, no history could be obtained from the patient, she was intubated in the emergency room. She has chronic obstructive lung disease, she was recently in hospice program, she sustained fracture of the right hip, recently underwent open reduction internal fixation of the hip she was in the senior living for rehabilitation, she was just discharged from the senior living. The initial blood gas that was done pH was 7.52, PO2 58.4, PCO2 54.5, bicarbonate 43.4, on FiO2 30%, chest x-ray showed diffuse bilateral infiltrate that suggest pneumonia.There is no pulmonary transportation economics teacher at this time, the initial vent setting for this patient, SIMV 12 FiO2 35% PEEP 5 pressure support 10.Patient was found unresponsive by her daughter, no one knows how long she has been on the ground before she was found unresponsive, the initial antibiotic coverage, gram-negative gram-positive and anaerobes.She was recently in nursing homes and also the hospital, hospital associated pneumonia must be considered as a potential etiology of her pneumonia Hospital Course Hospital Course: Patient was intubated on mechanical ventilator managed for severe bilateral airspace disease consistent with pneumonia. She was managed empirically with IV antibiotic, vancomycin, zosyn. The sputum culture did not grow any bacteria organism, the blood culture grew Staphylococcus epidermidis felt to be due to contamination.Patient was followed by pulmonary, she failed many weaning trials , She has underlining chronic obstructive pulmonary disease, scoliosis, post polio syndrome.The plan is to transfer patient to long-term acute care facility, Essentially for continuity of care and also to facilitate the weaning process for the patient Physical Exam Vital Signs: Temp Pulse Resp BP Pulse Ox 98.8 F 98 22 H 119/58 L 94 02/08/18 18:00 02/08/18 18:00 02/08/18 18:00 02/08/18 18:00 02/08/18 18:00 Intake & Output 02/07/18 02/08/18 02/09/18 06:59 06:59 06:59 Intake Total 2651 3172 424 Output Total 5155 3020 1540 Balance -2504 152 -1116 Weight 73.6 kg 73.9 kg Eye exam: PRESENT: PERRLA Respiratory exam: PRESENT: rhonchi GI/Abdominal exam: PRESENT: soft Neurological exam: PRESENT: altered Results Laboratory Results: 02/08/18 05:17 02/08/18 05:17 02/08/18 02/08/18 05:17 05:17 WBC 6.6 RBC 3.00 L Hgb 8.8 L Hct 25.6 L MCV 85 MCH 29.3 MCHC 34.4 RDW 15.1 H Plt Count 334 Seg Neutrophils % 75.5 Lymphocytes % 12.0 L Monocytes % 6.9 Eosinophils % 5.2 Basophils % 0.4 Absolute Neutrophils 5.0 Absolute Lymphocytes 0.8 Absolute Monocytes 0.5 Absolute Eosinophils 0.3 Absolute Basophils 0.0 Sodium 140.2 Potassium 3.5 L Chloride 103 Carbon Dioxide 29 Anion Gap 8 BUN 11 Creatinine 0.57 Est GFR ( Amer) > 60 Est GFR (Non-Af Amer) > 60 Glucose 97 Calcium 8.8 Magnesium 2.2 01/24/18 01/25/18 01/25/18 23:22 05:58 05:58 Creatine Kinase < 20 L CK-MB (CK-2) 1.51 1.15 Troponin I < 0.012 < 0.012 01/25/18 01/25/18 11:09 11:09 Creatine Kinase < 20 L CK-MB (CK-2) 0.57 Troponin I < 0.012 Impressions: Abdomen/Pelvis CT 01/31/18 20:00 IMPRESSION: Mild fluid layering in the pelvis. No evidence for acute appendicitis. KUB X-Ray 02/01/18 00:00 IMPRESSION: NG tube has been placed as described. Tip appears to lie within the stomach. Chest CT 02/01/18 21:00 IMPRESSION: Slight improvement in patchy groundglass opacities over the lung bases with persistent consolidative changes in each lung base. Cardiomegaly. Evidence of prior granulomatous disease. Endotracheal tube and enteric tube in place. TECHNICAL DOCUMENTATION: Quality ID # 436: Final reports with documentation of one or more dose reduction techniques (e.g., Automated exposure control, adjustment of the mA and/or kV according to patient size, use of iterative reconstruction technique) 2010 [employer]- All Rights Reserved Facial Bones CT 02/01/18 21:00 IMPRESSION: Right greater than left sphenoid sinusitis. Mucosal thickening of the nasal cavities bilaterally. Partial opacification of the visualized right mastoid air cells. TECHNICAL DOCUMENTATION: Quality ID # [id number]: Final reports with documentation of one or more dose reduction techniques (e.g., Automated exposure control, adjustment of the mA and/or kV according to patient size, use of iterative reconstruction technique) 2010 [employer]- All Rights Reserved Chest X-Ray 02/08/18 05:00 IMPRESSION: No significant change. Qualifiers - * PATIENT BEING DISCHARGED WITH ANY OF THE FOLLOWING DIAGNOSIS: No VTE patient discharged on overlapping Therapy?: Yes
--- NOTE | 2018-02-08 19:28 | PDOC PROGRESS REPORT ---
Subjective Progress Note for:: 02/08/18 Subjective:: Patient is seen, the plan is to transfer to long-term acute care facility tomorrow Reason For Visit: ACUTE RESPIRATORY FAILURE, BILATERAL PNEUMONIA Physical Exam Vital Signs: Temp Pulse Resp BP Pulse Ox 98.8 F 98 22 H 119/58 L 94 02/08/18 18:00 02/08/18 18:00 02/08/18 18:00 02/08/18 18:00 02/08/18 18:00 Intake & Output 02/07/18 02/08/18 02/09/18 06:59 06:59 06:59 Intake Total 2651 3172 424 Output Total 5154 3020 1540 Balance -2504 152 -1116 Weight 73.6 kg 73.9 kg Eye exam: PRESENT: PERRLA Respiratory exam: PRESENT: clear to auscultation ryley Cardiovascular exam: PRESENT: +S1, +S2 Results Laboratory Results: 02/08/18 05:17 02/08/18 05:17 02/08/18 02/08/18 05:17 05:17 WBC 6.6 RBC 3.00 L Hgb 8.8 L Hct 25.6 L MCV 85 MCH 29.3 MCHC 34.4 RDW 15.1 H Plt Count 334 Seg Neutrophils % 75.5 Lymphocytes % 12.0 L Monocytes % 6.9 Eosinophils % 5.2 Basophils % 0.4 Absolute Neutrophils 5.0 Absolute Lymphocytes 0.8 Absolute Monocytes 0.5 Absolute Eosinophils 0.3 Absolute Basophils 0.0 Sodium 140.2 Potassium 3.5 L Chloride 103 Carbon Dioxide 29 Anion Gap 8 BUN 11 Creatinine 0.57 Est GFR ( Amer) > 60 Est GFR (Non-Af Amer) > 60 Glucose 97 Calcium 8.8 Magnesium 2.2 01/24/18 01/25/18 01/25/18 23:22 05:58 05:58 Creatine Kinase < 20 L CK-MB (CK-2) 1.51 1.15 Troponin I < 0.012 < 0.012 01/25/18 01/25/18 11:09 11:09 Creatine Kinase < 20 L CK-MB (CK-2) 0.57 Troponin I < 0.012 Impressions: Abdomen/Pelvis CT 01/31/18 20:00 IMPRESSION: Mild fluid layering in the pelvis. No evidence for acute appendicitis. KUB X-Ray 02/01/18 00:00 IMPRESSION: NG tube has been placed as described. Tip appears to lie within the stomach. Chest CT 02/01/18 21:00 IMPRESSION: Slight improvement in patchy groundglass opacities over the lung bases with persistent consolidative changes in each lung base. Cardiomegaly. Evidence of prior granulomatous disease. Endotracheal tube and enteric tube in place. TECHNICAL DOCUMENTATION: Quality ID # 436: Final reports with documentation of one or more dose reduction techniques (e.g., Automated exposure control, adjustment of the mA and/or kV according to patient size, use of iterative reconstruction technique) 2010 [employer]- All Rights Reserved Facial Bones CT 02/01/18 21:00 IMPRESSION: Right greater than left sphenoid sinusitis. Mucosal thickening of the nasal cavities bilaterally. Partial opacification of the visualized right mastoid air cells. TECHNICAL DOCUMENTATION: Quality ID # 436: Final reports with documentation of one or more dose reduction techniques (e.g., Automated exposure control, adjustment of the mA and/or kV according to patient size, use of iterative reconstruction technique) 2010 [employer]- All Rights Reserved Chest X-Ray 02/08/18 05:00 IMPRESSION: No significant change. Assessment & Plan - Diagnosis (1) Acute respiratory failure with hypoxia and hypercapnia Is this a current diagnosis for this admission?: Yes (2) Bilateral pneumonia Qualifiers: Pneumonia type: due to unspecified organism Lung location: unspecified part of lung Qualified Code(s): J18.9 - Pneumonia, unspecified organism Is this a current diagnosis for this admission?: Yes (3) Sepsis Qualifiers: Sepsis type: sepsis due to unspecified organism Qualified Code(s): A41.9 - Sepsis, unspecified organism Is this a current diagnosis for this admission?: Yes (4) Post-polio syndrome Is this a current diagnosis for this admission?: Yes (5) Scoliosis (and kyphoscoliosis), idiopathic Is this a current diagnosis for this admission?: Yes (6) Hypokalemia Is this a current diagnosis for this admission?: Yes
[2018-02-08] MEDS: ACETAMINOPHEN SOLN 325 MG/10.15 ML UDCUP GT PRN (23:49)
[2018-02-09] MEDS: MORPHINE SULFATE 10 MG/ML INJ IV PRN ×4 (02:11→22:52)
[2018-02-09] MEDS: LEVALBUTEROL HCL NEB 1.25 MG/3 ML AMPUL NEB SCH ×4 (02:33→19:58)
[2018-02-09] MEDS: IPRATROPIUM BROMIDE 0.02% NEB 0.5 MG/2.5 ML AMPUL NEB SCH ×4 (02:33→19:58)
[2018-02-09 04:21] LABS: ANION GAP 10 (5-19); BLOOD UREA NITROGEN 15 mg/dL (7-20); CALCIUM 8.8 mg/dL (8.4-10.2); CARBON DIOXIDE 30 mmol/L (22-30); CHLORIDE 101 mmol/L (98-107); GLUCOSE 100 mg/dL (75-110); POTASSIUM 3.4 mmol/L (3.6-5.0); SODIUM 141.4 mmol/L (137-145); TRIGLYCERIDES 157 mg/dL (<150)
[2018-02-09] MEDS: LANSOPRAZOLE 30 MG TAB.RAP.DR PO SCH (05:06)
[2018-02-09] MEDS: HEPARIN SOD (PORCINE) 5,000 UNIT/ML 1 ML SYRINGE SUBCUT SCH ×3 (05:06→22:47)
[2018-02-09] MEDS: DEXTROSE 5%-1/2 NORMAL SALINE 1,000 ML IV PRN ×2 (05:07→18:31)
[2018-02-09] MEDS: ALPRAZOLAM 0.25 MG TABLET PO SCH ×3 (05:07→22:48)
[2018-02-09] MEDS: POTASSIUM CHLORIDE 20 MEQ/50 ML RTU IV SCH ×2 (05:07→06:38)
[2018-02-09] MEDS: MIDAZOLAM HCL 50 MG/100 ML RTUINJ IV PRN ×2 (05:51→15:28)
--- NOTE | 2018-02-09 06:41 | PROGRESS NOTE E ---
Progress Note NAME: MITCH ORELLANA : 1950 AGE: 68Y DATE: 02/08/2018 ROOM: 607 SUBJECTIVE: The patient is a 68-year-old female who came in with acute respiratory failure requiring invasive mechanical ventilation, presented with persistent on and off low-grade fever. The patient became tachycardic with the heart rate going up to 130-140 beats per minute after the sedation was taken off. May not start the spontaneous breathing trial. The patient was started on Lexapro 5 mg tablet daily, her Lexapro dose at home. The patient's IV propofol was discontinued due to [id number] interaction with the Lexapro causing prolongation of the QT interval. The patient was started on IV Versed for light sedation. The patient has continued endotracheal tube secretions. No increased gastric residual. Tolerated the G-tube feeding. Still has some watery stool and using ActiFlo, about 20 mL over the last 24 hours. No vomiting. Has scanty to mild endotracheal tube secretions. OBJECTIVE: GENERAL: The patient is sedated, afebrile, not in apparent respiratory distress. VITAL SIGNS: Temperature of 100 degrees Fahrenheit, with a T-max of 100.4 degrees Fahrenheit. Heart rate is 120. Blood pressure is 157/76. Respiratory rate is 22. Saturation is 92% on 40% FiO2. EYES: No jaundice or pallor. EARS, NOSE, AND THROAT: No ear drainage. No nasal discharge. CHEST AND LUNGS: No wheezing. No rhonchi. No coarse crackles. CARDIOVASCULAR: S1, S2 distinct. Normal rate and regular rhythm. ABDOMEN: Flabby. Positive bowel sounds. Soft, nondistended. EXTREMITIES: No joint swelling or cellulitis. LABORATORY DATA: CBC done today shows a white count of 6.6, hemoglobin is 8.8, hematocrit is 25.6, platelet count is 234. Chemistries done today: Sodium was 140, potassium is 3.5, chloride 103, CO2 is 29, BUN is 11, creatinine is 0.57. Glucose is 97, calcium is 8.8, and magnesium is 2.1. So, blood cultures done today; culture results pending. ASSESSMENT: 1. ACUTE RESPIRATORY FAILURE REQUIRING INVASIVE MECHANICAL VENTILATION. The patient failed spontaneous breathing trial. Unable to put the patient on spontaneous breathing trial because of the patient's tachyarrhythmias after the IV sedation was taken off. 2. CHRONIC SEVERE ANXIETY. 3. HISTORY OF MAJOR DEPRESSION. 4. CHRONIC PAIN,- POSSIBLE. 5. SPHENOID SINUSITIS. 6. LOW-GRADE FEVER. PLAN/RECOMMENDATIONS: 1. Will start the patient on Lexapro 5 mg tablet p.o. per G-tube. 2. Will discontinue the IV propofol and change it to IV Versed and titrate to keep the light sedation. 3. Will continue the antibiotics. 4. Await the blood cultures. 5. Consider another sputum culture. 6. We will continue to optimize ventilatory support. 7. The patient was transferred to [facility] and the social worker clinical claimed that the patient can be admitted to [facility] without a tracheostomy and without a G-tube, and [facility] conveyed the message that they do the tracheostomy and G-tube placement in their facility. 8. We will do a spontaneous breathing trial again tomorrow. If the patient fails, then would recommend transfer the patient to [facility] tomorrow. DICTATING PHYSICIAN: ALPA GARCIA MD,ANNETTE,MPH [id number] PHY#: [id number] ID: [id number] JOB#: [id number] ACCT: [id number] cc: > RAMAKRISHNA
[2018-02-09] MEDS: FUROSEMIDE INJ/PF 20 MG/2 ML SDV IV SCH ×2 (10:06→22:47)
[2018-02-09] MEDS: METOPROLOL TARTRATE 50 MG TABLET GT SCH ×2 (10:06→22:47)
[2018-02-09] MEDS: GENTAMICIN SULFATE 100 MG in DEXTROSE 5%-WATER 100 ML IV SCH (10:06)
[2018-02-09] MEDS: ESCITALOPRAM OXALATE 10 MG TABLET PO SCH (10:06)
[2018-02-09 10:39] LABS: GENTAMICIN-TROUGH 0.8 ug/mL (<2.0)
[2018-02-09 12:13] LABS: GENTAMICIN-PEAK 6.1 ug/mL (5.0-10.0)
--- NOTE | 2018-02-09 16:46 | PROGRESS NOTE E ---
Progress Note NAME: MITCH ORELLANA : 1950 AGE: 68Y DATE: 02/09/2018 ROOM: 607 SUBJECTIVE: The patient is a 68-year-old female who came in, in acute respiratory failure requiring invasive mechanical ventilation. The patient has no fever over the last 24 hours and no vomiting. Continues to have watery stool and scanty endotracheal tube secretion. Tried weaning off sedation. The patient's heart rate went up to 130 beats per minute. The patient was placed back on sedation. Currently receiving IV Versed infusion for light sedation. The patient is waiting for transfer to [facility] long-term ventilator facility with the endotracheal tube in. Told that [facility] can do tracheostomy tube placement and G-tube if patient needs it in their facility. OBJECTIVE: GENERAL: The patient appeared slightly sedated, afebrile, not in apparent respiratory distress. VITAL SIGNS: Temperature of 99.1 with a T-max of 99.1, blood pressure is 123/62, heart rate of 94, respiratory of 20, saturation 96% on 30% FiO2, SIMV rate of 20, tidal volume 310, pressure support of 10, PEEP of 5 above PEEP on a ventilator rate of 20 and minute ventilation of 6.2-7, exhaled/inhaled tidal volume about 150-400 mL, peak airway pressure is 24-31. EYES: No jaundice or pallor. EARS, NOSE, AND THROAT: No ear drainage noted. No nasal discharge. CHEST AND LUNGS: No wheezing, no rhonchi, no coarse crackles. CARDIOVASCULAR: S1, S2 distinct. Regular rate and normal rhythm. ABDOMEN: Flabby, positive bowel sounds, soft, nondistended, nontender. EXTREMITIES: No joint swelling, no cellulitis. LABORATORY DATA: CBC; there is no CBC done today. The chemistry done today showed sodium of 141.4, potassium is 3.4, chloride 101, CO2 is 30, BUN 15, creatinine is 0.52, glucose 100, calcium is 8.8, and magnesium is 2.2. ASSESSMENT/PLAN: 1. ACUTE RESPIRATORY FAILURE REQUIRING INVASIVE MECHANICAL VENTILATION. She failed sedation vacation this morning and did not tolerate any spontaneous breathing trial. 2. FEVER, LOW GRADE. Appeared to be resolving, no fever for the last 3-4 hours. 3. PNEUMONIA BILATERAL. Appeared to be improving. Has been on IV broad spectrum antibiotics currently about 2 weeks. 4. SPHENOID SEVERE SINUSITIS. Is improving. 5. SEVERE ANXIETY AND MAJOR DEPRESSION. Currently on Lexapro 5 mg daily, may consider increasing it to 10 mg tomorrow and titrate until the patient becomes more comfortable. 6. Agree with the plan to transfer the patient to a long-term care ventilator facility. DICTATING PHYSICIAN: ALPA GARCIA MD,ANNETTE,MPH [id number] PHY#: [id number] ID: [id number] JOB#: [id number] ACCT: [id number] cc: > MTDD
[2018-02-10] MEDS: IPRATROPIUM BROMIDE 0.02% NEB 0.5 MG/2.5 ML AMPUL NEB SCH ×2 (02:28→08:14)
[2018-02-10] MEDS: LEVALBUTEROL HCL NEB 1.25 MG/3 ML AMPUL NEB SCH ×2 (02:28→08:14)
[2018-02-10 04:33] LABS: ANION GAP 11 (5-19); BLOOD UREA NITROGEN 11 mg/dL (7-20); CALCIUM 8.8 mg/dL (8.4-10.2); CARBON DIOXIDE 30 mmol/L (22-30); CHLORIDE 98 mmol/L (98-107); GLUCOSE 105 mg/dL (75-110); POTASSIUM 3.6 mmol/L (3.6-5.0); SODIUM 139.1 mmol/L (137-145)
[2018-02-10 06:04] VITALS: BP 149/82
[2018-02-10] MEDS: LANSOPRAZOLE 30 MG TAB.RAP.DR PO SCH (06:04)
[2018-02-10] MEDS: ALPRAZOLAM 0.25 MG TABLET PO SCH (06:04)
[2018-02-10] MEDS: HEPARIN SOD (PORCINE) 5,000 UNIT/ML 1 ML SYRINGE SUBCUT SCH (06:04)
[2018-02-10] MEDS: MIDAZOLAM HCL 50 MG/100 ML RTUINJ IV PRN ×2 (06:12)
== END 2018-02-10 10:30 | DRG 207 ==
LOC: ER 21:05 → EH 22:21 → ICU 01-25 00:15
PROVIDERS: ADMIT Internal Medicine; ATTEND Internal Medicine
PROC: 0BH17EZ Insertion of Endotracheal Airway into Trachea, Via Natural or Artificial Opening (ICD-10-PCS; principal; 2018-01-24)
PROC: 5A1955Z Respiratory Ventilation, Greater than 96 Consecutive Hours (ICD-10-PCS; 2018-01-24)
DX: J96.01 Acute respiratory failure with hypoxia (principal); J18.9 Pneumonia, unspecified organism; J96.02 Acute respiratory failure with hypercapnia; E87.6 Hypokalemia; J44.9 Chronic obstructive pulmonary disease, unspecified; J32.3 Chronic sphenoidal sinusitis; G14 Postpolio syndrome; M41.9 Scoliosis, unspecified; I10 Essential (primary) hypertension; F41.9 Anxiety disorder, unspecified; F32.9 Major depressive disorder, single episode, unspecified; M19.90 Unspecified osteoarthritis, unspecified site; Z79.899 Other long term (current) drug therapy; Z66 Do not resuscitate
CPT/HCPCS: 31500; 36415; 70486; 71045; 71250; 74018; 74177; 80048; 80053; 80061; 80076; 80170; 80202; 81001; 82140; 82150; 82550; 82553; 82803; 82962; 83036; 83690; 83735; 83880; 84100; 84132; 84439; 84443; 84478; 84484; 85025; 85610; 85730; 87040; 87070; 87077; 87086; 87186; 87205; 87493; 93005; 93010; 94002; 94003; 94640; 94660; 96365; 99291; J0330; J0743; J1580; J1644; J1940; J2060; J2250; J2270; J2370; J2543; J2704; J3370; J3475; J3480; J3490; J7030; J7060; J7120; J7620

== ENCOUNTER 2018-06-04 08:00 | Inpatient (IN) | payer MEDICARE, MEDICAID ==
--- NOTE | 2018-06-04 08:14 | ER Document Report ---
ED General - General Stated Complaint: RESPIRATORY DISTRESS Time Seen by Provider: 06/04/18 08:07 Notes: Patient is a 68-year-old female with history of chronic respiratory failure on home ventilator that presents to the emergency department for chief complaint of respiratory distress. History provided by EMS as the patient is nonverbal. EMS reports that they were called because the patient was having a hard time breathing, her oxygen sats were dropping at home, and then her heart rate started to drop, and the home health nurse started providing 5 minutes of chest compressions prior to their arrival, upon arrival the patient did have a pulse, had significant tracheal mucus plugging and secretions which were suctioned out, and the patient has been doing quite well since then. There was glucose was 180, end-tidal CO2 was around 48-50, and blood pressure most recently was 169/108. Per EMS the patient does have a history of polio and diabetes and COPD, has been on ventilator, apparently has a DNR order, but the family was unable to supply that paperwork. Past Medical History: COPD, GERD, osteoporosis, polio, diabetes mellitus Past Surgical History: Tracheostomy, PEG tube placement Social History: Lives at home, has a home health aide Family History: Reviewed and noncontributory for presenting illness Allergies: Reviewed, see documented allergy list. REVIEW OF SYSTEMS: Other than noted above, the 12 point review of systems was reviewed with the patient and were negative, all pertinent findings are included in the HPI. PHYSICAL EXAMINATION: Vital signs reviewed, nursing noted reviewed. GENERAL: Chronically ill-appearing female, tracheostomy being assisted by bag valve mask HEAD: Atraumatic, normocephalic. EYES: Eyes appear normal, extraocular movements intact, sclera anicteric, conjunctiva are normal. ENT: nares patent, oropharynx clear without exudates. Moist mucous membranes. NECK: Normal range of motion, supple without lymphadenopathy LUNGS: Coarse lung sounds throughout, with assisted ventilations. No tachypnea HEART: Heart rate tachycardic, regular rhythm ABDOMEN: Soft, mild distention, nontender, normoactive bowel sounds. No rebound, guarding, or rigidity. No masses appreciated. EXTREMITIES: Extremities are atrophied bilaterally in the lower extremities, with flexion contractures, chronic for this patient. NEUROLOGICAL: Patient is nonverbal at baseline, tracheostomy, will follow commands, lower extremities are contracted, chronic for this patient. PSYCH: Responds to commands appropriately SKIN: Warm, Dry, normal turgor, no rashes or lesions noted on exposed skin TRAVEL OUTSIDE OF THE [place] IN LAST 30 DAYS: No - Related Data Allergies/Adverse Reactions: No Known Allergies Allergy (Verified 10/25/14 09:26) Past Medical History - Social History Smoking Status: Former Smoker Family History: Reviewed & Not Pertinent - Past Medical History Cardiac Medical History: Reports: Hx Hypertension Denies: Hx Coronary Artery Disease, Hx Heart Attack Pulmonary Medical History: Reports: Hx COPD, Hx Pneumonia - WHEN I WAS 7 YRS OLD, Hx Respiratory Failure Denies: Hx Asthma, Hx Bronchitis Neurological Medical History: Denies: Hx Cerebrovascular Accident, Hx Seizures Renal/ Medical History: Denies: Hx Peritoneal Dialysis GI Medical History: Denies: Hx Hepatitis, Hx Hiatal Hernia, Hx Ulcer Musculoskeletal Medical History: Reports Hx Arthritis Psychiatric Medical History: Reports: Hx Depression Infectious Medical History: Denies: Hx Hepatitis Past Surgical History: Reports: Hx Orthopedic Surgery. Denies: Hx Hysterectomy, Hx Mastectomy, Hx Open Heart Surgery, Hx Pacemaker - Immunizations Hx Diphtheria, Pertussis, Tetanus Vaccination: Yes Hx Pneumococcal Vaccination: 04/05/11 Physical Exam - Vital signs Vitals: Pulse Ox 100 06/04/18 08:07 Course - Re-evaluation Re-evalutation: Patient seen and examined, vital signs reviewed, patient was tachycardic, blood pressure was stable, has been assisted by bag valve mask ventilations, tracheostomy in place appear to be patent, no signs of infection at the site. Patient was easily bagged, was then placed back on her home ventilator settings. It would appear that the patient's issue which led to her respiratory failure at home was from mucous plugging in her tracheostomy tube, as she seems to be stable now after having suctioned by EMS. We will obtain chest x-ray, and blood work, as the patient did receive CPR and chest compressions at home, also obtain ABG. Patient seen and examined vital signs reviewed. Patient was treated with IV fluid, IV vancomycin and Zosyn after reviewing chest x-ray that revealed a right lower lobe pneumonia. Results were reviewed when available and demonstrated right lower lobe pneumonia on chest x-ray, blood gas demonstrated respiratory acidosis, acute on chronic. The patient was re-evaluated and was stable, more alert Evaluation was most consistent with acute on chronic respiratory failure with hypercapnia, right lower lobe pneumonia Results were discussed with the patient at this point after careful consideration I feel that that patient should be admitted to the hospital. This was discussed with the patient that it is in the best interest for their care to be admitted for further evaluation and management. Patient agreed with this plan of care. A call was placed to the admitted physician, Dr. Corcoran who graciously accepted the patient onto their service. He request a consult to pulmonology with Dr. Schwab and this was ordered. *Note is created using voice recognition software and may contain spelling, syntax or grammatical errors. Laboratory 06/04/18 06/04/18 06/04/18 08:10 08:10 08:10 WBC 10.0 RBC 4.31 Hgb 10.1 L Hct 31.7 L MCV 74 L MCH 23.5 L MCHC 31.9 L RDW 19.1 H Plt Count 353 Total Counted 100 Seg Neutrophils % Not Reportable Seg Neuts % (Manual) 64 Lymphocytes % Not Reportable Lymphocytes % (Manual) 27 Monocytes % Not Reportable Monocytes % (Manual) 5 Eosinophils % Not Reportable Eosinophils % (Manual) 2 Basophils % Not Reportable Basophils % (Manual) 2 Absolute Neutrophils Not Reportable Abs Neuts (Manual) 6.4 Absolute Lymphocytes Not Reportable Abs Lymphs (Manual) 2.7 Absolute Monocytes Not Reportable Abs Monocytes (Manual) 0.5 Absolute Eosinophils Not Reportable Absolute Eos (Manual) 0.2 Absolute Basophils Not Reportable Abs Basophils (Manual) 0.2 Platelet Comment ADEQUATE Polychromasia SLIGHT Hypochromasia 1+ Poikilocytosis 2+ Anisocytosis 2+ Microcytosis 1+ Tear Drop Cells 1+ Ovalocytes 1+ VBG pH VBG pCO2 VBG HCO3 VBG Base Excess Sodium 144.1 Potassium 4.7 Chloride 107 Carbon Dioxide 27 Anion Gap 10 BUN 22 H Creatinine 0.46 L Est GFR ( Amer) > 60 Est GFR (Non-Af Amer) > 60 Glucose 168 H Calcium 9.8 Total Bilirubin 0.3 Direct Bilirubin 0.1 Neonat Total Bilirubin Not Reportable Neonat Direct Bilirubin Not Reportable Neonat Indirect Bili Not Reportable AST 31 ALT 41 Alkaline Phosphatase 128 H Troponin I < 0.012 Total Protein 7.5 Albumin 4.2 06/04/18 08:10 WBC RBC Hgb Hct MCV MCH MCHC RDW Plt Count Total Counted Seg Neutrophils % Seg Neuts % (Manual) Lymphocytes % Lymphocytes % (Manual) Monocytes % Monocytes % (Manual) Eosinophils % Eosinophils % (Manual) Basophils % Basophils % (Manual) Absolute Neutrophils Abs Neuts (Manual) Absolute Lymphocytes Abs Lymphs (Manual) Absolute Monocytes Abs Monocytes (Manual) Absolute Eosinophils Absolute Eos (Manual) Absolute Basophils Abs Basophils (Manual) Platelet Comment Polychromasia Hypochromasia Poikilocytosis Anisocytosis Microcytosis Tear Drop Cells Ovalocytes VBG pH 7.13 L* VBG pCO2 74.7 H* VBG HCO3 24.5 VBG Base Excess -6.3 Sodium Potassium Chloride Carbon Dioxide Anion Gap BUN Creatinine Est GFR ( Amer) Est GFR (Non-Af Amer) Glucose Calcium Total Bilirubin Direct Bilirubin Neonat Total Bilirubin Neonat Direct Bilirubin Neonat Indirect Bili AST ALT Alkaline Phosphatase Troponin I Total Protein Albumin Chest X-Ray 06/04/18 08:07 IMPRESSION: Right lower lobe pneumonia. 06/04/18 10:18 - Vital Signs Vital signs: Temp Pulse Resp BP Pulse Ox 98.6 F 100 06/04/18 08:40 06/04/18 08:15 - Laboratory Result Diagrams: 06/04/18 08:10 06/04/18 08:10 Laboratory results interpreted by me: 06/04/18 06/04/18 06/04/18 08:10 08:10 08:10 Hgb 10.1 L Hct 31.7 L MCV 74 L MCH 23.5 L MCHC 31.9 L RDW 19.1 H VBG pH 7.13 L* VBG pCO2 74.7 H* BUN 22 H Creatinine 0.46 L Glucose 168 H Alkaline Phosphatase 128 H - EKG Interpretation by Me Additional EKG results interpreted by me: EKG demonstrates sinus tachycardia with a ventricular rate of 111 bpm, normal axis, QTC 460 ms, there is an occasional PVC, no ST elevation, no evidence of acute ischemia on this EKG this is compared with the prior EKG from 01/24/2018, without significant change. Critical Care Note - Critical Care Note Total time excluding time spent on procedures (mins): 35 Comments: Critical care time 35 minutes exclusive from separate billable procedures for a patient requiring complex medical decision making, and high potential for clinical deterioration. Chronically ventilated patient with acute on chronic respiratory failure requiring ventilator setting adjustments, and treatment for pneumonia and admission to our ICU. Time spent obtaining history from patient or surrogate, discussions with consultants, development of treatment plan with p atient or surrogate, evaluation of patient's response to treatment, examination of patient, ordering and performing treatments and interventions, ordering and review of laboratory studies, re-evaluation of patient's condition, ordering and review of radiographic studies and review of old charts Discharge - Discharge Clinical Impression: Acute and chronic respiratory failure Qualifiers: Respiratory failure complication: hypercapnia Qualified Code(s): J96.22 - Acute and chronic respiratory failure with hypercapnia Right lower lobe pneumonia Qualifiers: Pneumonia type: due to unspecified organism Qualified Code(s): J18.1 - Lobar pneumonia, unspecified organism Anemia Qualifiers: Anemia type: unspecified type Qualified Code(s): D64.9 - Anemia, unspecified Condition: Serious Disposition: ADMITTED INPATIENT Admitting Provider: Located Within [facility] Unit Admitted: ICU
[2018-06-04 08:38] LABS: HEMATOCRIT 31.7 % (36.0-47.0); HEMOGLOBIN 10.1 g/dL (12.0-15.5); MEAN CORPUSCULAR HEMOGLOBIN 23.5 pg (27.0-33.4); MEAN CORPUSCULAR HGB CONC 31.9 g/dL (32.0-36.0); MEAN CORPUSCULAR VOLUME 74 fl (80-97); PLATELET COUNT 353 10^3/uL (150-450); RED BLOOD COUNT 4.31 10^6/uL (3.72-5.28); RED CELL DISTRIBUTION WIDTH 19.1 % (11.5-14.0)
[2018-06-04 08:50] LABS: ALANINE AMINOTRANSFERASE 41 U/L (9-52); ALBUMIN 4.2 g/dL (3.5-5.0); ALKALINE PHOSPHATASE 128 U/L (38-126); ANION GAP 10 (5-19); ASPARTATE AMINO TRANSFERASE 31 U/L (14-36); BILIRUBIN,DIRECT 0.1 mg/dL (0.0-0.4); BILIRUBIN,TOTAL 0.3 mg/dL (0.2-1.3); BLOOD UREA NITROGEN 22 mg/dL (7-20); CALCIUM 9.8 mg/dL (8.4-10.2); CARBON DIOXIDE 27 mmol/L (22-30); CHLORIDE 107 mmol/L (98-107); GLUCOSE 168 mg/dL (75-110); POTASSIUM 4.7 mmol/L (3.6-5.0); SODIUM 144.1 mmol/L (137-145); TOTAL PROTEIN 7.5 g/dL (6.3-8.2)
[2018-06-04 09:01] LABS: ABSOLUTE LYMPHOCYTES# (MANUAL) 2.7 10^3/uL (0.5-4.7); ABSOLUTE MONOCYTES # (MANUAL) 0.5 10^3/uL (0.1-1.4); ABSOLUTE NEUTROPHILS# (MANUAL) 6.4 10^3/uL (1.7-8.2); BASOPHILS % (MANUAL) 2 % (0-2); EOSINOPHILS % (MANUAL) 2 % (0-6); LYMPHOCYTES % (MANUAL) 27 % (13-45); MONOCYTES % (MANUAL) 5 % (3-13); SEGMENTED NEUTROPHILS % (MAN) 64 % (42-78); TOTAL CELLS COUNTED 100
--- NOTE | 2018-06-04 09:01 | RADIOLOGY REPORT (SQ) ---
EXAM DESCRIPTION: CHEST SINGLE VIEW COMPLETED DATE/TIME: 06/04/2018 8:48 am REASON FOR STUDY: cough, resp distress COMPARISON: 02/08/2018 EXAM PARAMETERS: NUMBER OF VIEWS: One view. TECHNIQUE: Single frontal radiographic view of the chest acquired. RADIATION DOSE: NA LIMITATIONS: None. FINDINGS: LUNGS AND PLEURA: Parenchymal opacity at the right base. Left lung clear is visualized. MEDIASTINUM AND HILAR STRUCTURES: No masses. Contour normal. HEART AND VASCULAR STRUCTURES: Heart normal in size. Normal vasculature. BONES: Marked scoliosis convex left. Howe apple. HARDWARE: Tracheostomy. OTHER: No other significant finding. IMPRESSION: Right lower lobe pneumonia. TECHNICAL DOCUMENTATION: JOB ID: [id number] [employer]- All Rights Reserved Reading location - IP/workstation name: [email or web address]
[2018-06-04 09:02] LABS: ANISOCYTOSIS 2+; HYPOCHROMASIA 1+; OVALOCYTES 1+; PLATELET COMMENT ADEQUATE; POIKILOCYTOSIS 2+; POLYCHROMASIA SLIGHT; TEAR DROP CELLS 1+
[2018-06-04] MEDS ORDERED: PIPERACILLIN/TAZOBACTAM 4.5 GM VIAL IV ONE (09:11)
[2018-06-04] MEDS ORDERED: VANCOMYCIN HCL INJ 1000 MG VIAL IV ONE (09:11)
[2018-06-04 09:40] LABS: VENOUS BLOOD BASE EXCESS -6.3 mmol/L; VENOUS BLOOD HCO3 24.5 mmol/L (20-32)
[2018-06-04 09:41] LABS: VENOUS BLOOD PCO2 74.7 mmHg (35-63); VENOUS BLOOD PH 7.13 (7.30-7.42)
[2018-06-04] MEDS ORDERED: RINGERS SOLUTION,LACTATED 1,000 ML IV ONE (09:47)
[2018-06-04 10:38] LABS: ARTERIAL BLOOD BASE EXCESS -1.4 mmol/L; ARTERIAL BLOOD H2CO3 1.02 mmol/L (1.05-1.35); ARTERIAL BLOOD HCO3 22.3 mmol/L (20-24); ARTERIAL BLOOD O2 SATURATION 98.3 % (94-98); ARTERIAL BLOOD PCO2 33.8 mmHg (35-45); ARTERIAL BLOOD PH 7.44 (7.35-7.45); ARTERIAL BLOOD PO2 113.9 mmHg (80-100); ARTERIAL BLOOD TOTAL CO2 23.3 mmol/L (21-25)
[2018-06-04 10:42] LABS: ARTERIAL BLOOD FIO2 40%
[2018-06-04] MEDS ORDERED: ACETAMINOPHEN 325 MG TABLET PO PRN (10:46)
[2018-06-04] MEDS ORDERED: VANCOMYCIN HCL 0 MG in DEXTROSE 5%-WATER 250 ML IV NR (11:00)
--- NOTE | 2018-06-04 11:44 | PDOC H&P ---
History of Present Illness Admission Date/PCP: 06/04/18 10:03 KIMI CANELA MD Patient complains of: Respiratory distress History of Present Illness: MITCH ORELLANA is a 68 year old female This is a 68-year-old female with a chronic respiratory failure on home ventilations chest discharge 2 days back from the [place] was in the [facility] status post tracheostomy was placed then transferred to the long- term facilities and transfer back to the home brought to the emergency department by EMS with a complaining of respiratory distressed EMS reported that they were called because the patient was having a hard time to breathing and her oxygen saturations dropping to up to 70%'s and her heart rate was start dropping in the home health nurse tried providing the 5-minute chest compressions prior to that arrival on arrival of EMS patient have a pulse blood pressures not sure about anything cardiac arrest I believe most likely related to the respiratory issue with some ventilation issues in the emergency department some patient have a good pulse good heart rate patient's CO2 was around 48-50 and patient's problems the pneumonia Is complaining some chest pains when the chest pressure was placed Patient is initial EKG and cardiac enzyme was negative When I saw the patient in the ER patient is alert awake Patient's son on the bedside home health nurse and respiratory nurse on the bedside Reviewed the patient's old medical record very extensive post polio syndrome COPD diabetes and patients have a ongoing issues with a respiratory distressed At this point decided to admit in the ICU I think patient's family and patient's home health nurse need a more knowledge to how to manage the ventilations We will consult with Dr. Schwab's for further evaluations Will rule out acute coronary syndromes Discussed with the son about the patient's current conditions with not a very good prognosis still patient is a full code Past Medical History Cardiac Medical History: Reports: Hypertension Denies: Coronary Artery Disease, Myocardial Infarction Pulmonary Medical History: Reports: Chronic Obstructive Pulmonary Disease (COPD), Pneumonia - WHEN I WAS 7 YRS OLD, Respiratory Failure Denies: Asthma, Bronchitis Neurological Medical History: Denies: Seizures Endocrine Medical History: Reports: Diabetes Mellitus Type 2 GI Medical History: Reports: Gastroesophageal Reflux Disease Denies: Hepatitis, Hiatal Hernia Musculoskeltal Medical History: Reports: Arthritis Psychiatric Medical History: Reports: Depression Hematology: Past Surgical History Past Surgical History: Reports: Orthopedic Surgery, Other Denies: Hysterectomy, Mastectomy, Pacemaker Social History Smoking Status: Former Smoker Frequency of Alcohol Use: None Hx Recreational Drug Use: No Hx Prescription Drug Abuse: No Family History Family History: Reviewed & Not Pertinent Parental Family History Reviewed: Yes Children Family History Reviewed: Yes Sibling(s) Family History Reviewed.: Yes Medication/Allergy Home Medications: Escitalopram Oxalate [Lexapro] 5 mg PO DAILY 11/25/17 Metoprolol Succinate [Toprol XL 100 mg Tablet] 100 mg PO DAILY 11/25/17 Allergies/Adverse Reactions: No Known Allergies Allergy (Verified 10/25/14 09:26) Review of Systems All systems: reviewed and no additional remarkable complaints except as stated Constitutional: ABSENT: chills, fever(s), headache(s), weight gain, weight loss Eyes: ABSENT: visual disturbances Ears: ABSENT: hearing changes Cardiovascular: PRESENT: chest pain. ABSENT: edema, orthropnea, palpitations Respiratory: PRESENT: cough, dyspnea. ABSENT: hemoptysis Gastrointestinal: ABSENT: abdominal pain, constipation, diarrhea, hematemesis, hematochezia, nausea, vomiting Genitourinary: ABSENT: dysuria, hematuria Musculoskeletal: ABSENT: joint swelling Integumentary: ABSENT: rash, wounds Neurological: ABSENT: abnormal gait, abnormal speech, confusion, dizziness, focal weakness, syncope Psychiatric: ABSENT: anxiety, depression, homidical ideation, suicidal ideation Endocrine: ABSENT: cold intolerance, heat intolerance, menstrual abnormalities, polydipsia, polyuria Hematologic/Lymphatic: ABSENT: easy bleeding, easy bruising, lymphadenopathy Physical Exam Vital Signs: Temp Pulse Resp BP Pulse Ox 98.6 F 100 06/04/18 08:40 06/04/18 08:15 Intake & Output 06/03/18 06/04/18 06/05/18 06:59 06:59 06:59 Weight 67.5 kg Physical Exam: Currently on a tracheostomy per medication ventilations General appearance: PRESENT: no acute distress Eye exam: PRESENT: PERRLA Mouth exam: PRESENT: neck supple Additional comments: Tracheostomy site is intact Respiratory exam: PRESENT: clear to auscultation ryley Cardiovascular exam: PRESENT: +S1, +S2 GI/Abdominal exam: PRESENT: normal bowel sounds, soft Additonal comments: PEG tube is intact Neurological exam: PRESENT: alert, awake, oriented to person, oriented to place, oriented to time, oriented to situation Skin exam: PRESENT: dry Results Laboratory Results: 06/04/18 08:10 06/04/18 08:10 06/04/18 06/04/18 06/04/18 08:10 08:10 08:10 WBC 10.0 RBC 4.31 Hgb 10.1 L Hct 31.7 L MCV 74 L MCH 23.5 L MCHC 31.9 L RDW 19.1 H Plt Count 353 Seg Neutrophils % Not Reportable Lymphocytes % Not Reportable Monocytes % Not Reportable Eosinophils % Not Reportable Basophils % Not Reportable Absolute Neutrophils Not Reportable Absolute Lymphocytes Not Reportable Absolute Monocytes Not Reportable Absolute Eosinophils Not Reportable Absolute Basophils Not Reportable Carbonic Acid HCO3/H2CO3 Ratio ABG pH ABG pCO2 ABG pO2 ABG HCO3 ABG O2 Saturation ABG Base Excess VBG pH 7.13 L* VBG pCO2 74.7 H* VBG HCO3 24.5 VBG Base Excess -6.3 FiO2 Sodium 144.1 Potassium 4.7 Chloride 107 Carbon Dioxide 27 Anion Gap 10 BUN 22 H Creatinine 0.46 L Est GFR ( Amer) > 60 Est GFR (Non-Af Amer) > 60 Glucose 168 H Calcium 9.8 Total Bilirubin 0.3 AST 31 ALT 41 Alkaline Phosphatase 128 H Total Protein 7.5 Albumin 4.2 06/04/18 10:30 WBC RBC Hgb Hct MCV MCH MCHC RDW Plt Count Seg Neutrophils % Lymphocytes % Monocytes % Eosinophils % Basophils % Absolute Neutrophils Absolute Lymphocytes Absolute Monocytes Absolute Eosinophils Absolute Basophils Carbonic Acid 1.02 L HCO3/H2CO3 Ratio 21:1 ABG pH 7.44 ABG pCO2 33.8 L ABG pO2 113.9 H ABG HCO3 22.3 ABG O2 Saturation 98.3 H ABG Base Excess -1.4 VBG pH VBG pCO2 VBG HCO3 VBG Base Excess FiO2 40% Sodium Potassium Chloride Carbon Dioxide Anion Gap BUN Creatinine Est GFR ( Amer) Est GFR (Non-Af Amer) Glucose Calcium Total Bilirubin AST ALT Alkaline Phosphatase Total Protein Albumin 06/04/18 08:10 Troponin I < 0.012 Impressions: Chest X-Ray 06/04/18 08:07 IMPRESSION: Right lower lobe pneumonia. Assessment & Plan - Diagnosis (1) Acute and chronic respiratory failure Qualifiers: Respiratory failure complication: hypercapnia Qualified Code(s): J96.22 - Acute and chronic respiratory failure with hypercapnia Is this a current diagnosis for this admission?: Yes Plan: Will consult the pulmonary continues to mechanical ventilations (2) Right lower lobe pneumonia Qualifiers: Pneumonia type: due to unspecified organism Qualified Code(s): J18.1 - Lobar pneumonia, unspecified organism Is this a current diagnosis for this admission?: Yes Plan: Start the patient on IV antibiotic (3) Hypertension Qualifiers: Hypertension type: essential hypertension Qualified Code(s): I10 - Essential (primary) hypertension Is this a current diagnosis for this admission?: Yes Plan: Currently all stable (4) Post-polio syndrome Is this a current diagnosis for this admission?: Yes (5) Scoliosis (and kyphoscoliosis), idiopathic Is this a current diagnosis for this admission?: Yes (6) Chest pain Qualifiers: Chest pain type: unspecified Qualified Code(s): R07.9 - Chest pain, unspecified Is this a current diagnosis for this admission?: Yes Plan: Most likely due to the CPR with the chest wall pain initial EKG and cardiac enzyme is all negative Will rule out any acute coronary syndromes - Time Time Spent: 50 to 70 Minutes Critical Time spent with patient: 25-34 minutes Medications reviewed and adjusted accordingly: Yes Anticipated discharge: Other Within: Other - Inpatient Certification Based on my medical assessment, after consideration of the patient's comorbidities, presenting symptoms, or acuity I expect that the services needed warrant INPATIENT care.: Yes I certify that my determination is in accordance with my understanding of Medicare's requirements for reasonable and necessary INPATIENT services [42 CFR 412.3e].: Yes Medical Necessity: Significant Comorbidiites Make Outpatient Treatment Too Risky, Need For IV Fluids, Need for IV Antibiotics Post Hospital Care: 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
[2018-06-04 12:23] LABS: CREATINE KINASE MB 0.85 ng/mL (<4.55)
[2018-06-04 12:28] LABS: TROPONIN I 0.075 ng/mL
--- NOTE | 2018-06-04 13:25 | RADIOLOGY REPORT (SQ) ---
EXAM DESCRIPTION: CTA CHEST COMPLETED DATE/TIME: 06/04/2018 1:06 pm REASON FOR STUDY: chest pain/sob COMPARISON: 02/01/2018. TECHNIQUE: CT scan of the chest performed using helical scanning technique with dynamic intravenous contrast injection. Images reviewed with lung, soft tissue and bone windows. Reconstructed coronal and sagittal MPR images reviewed. Additional 3 dimensional post-processing performed to develop Maximal Intensity Projection images (SD P). All images stored on PACS. All CT scanners at this facility use dose modulation, iterative reconstruction, and/or weight based d osing when appropriate to reduce radiation dose to as low as reasonably achievable (ALARA). [facility]: Dose Right [facility]: CareDose [facility]: Dose Right [facility]: Teradose 4D [facility]: Lifestander CONTRAST TYPE AND DOSE: contrast/concentration: Isovue 350.00 mg/ml; Total Contrast Delivered: 68.0 ml; Total Saline Delivered: 108.0 ml Contrast bolus adequate for pulmonary arteries and aorta. RENAL FUNCTION: BUN 22 creatinine 0.46. RADIATION DOSE: CT Rad equipment meets quality standard of care and radiation dose reduction techniq ues were employed. CTDIvol: 26.6 - 56.2 mGy. DLP: 1039 mGy-cm. . LIMITATIONS: None. FINDINGS: LUNGS AND PLEURA: Scattered airspace disease throughout both lungs, slightly more confluen t in the posterior lung bases, right greater than left. No pleural effusions or pleural calcificatio ns. AORTA AND GREAT VESSELS: No aneurysm. No dissection. HEART: No pericardial effusion. No significant coronary artery calcifications. PULMONARY ARTERIES: No emboli visualized in the main pulmonary arteries or the segmental branches. HILAR AND MEDIASTINAL STRUCTURES: No identified masses or abnormal nodes. HARDWARE: Tracheostomy tube, gastrostomy tube, as spinal hardware. UPPER ABDOMEN: No significant findings. Limited exam. THYROID AND OTHER SOFT TISSUES: No masses. No adenopathy. BONES: Severe chronic skeletal deformity with scoliosis. 3D MIPS: Confirm above findings. OTHER: No other significant finding. IMPRESSION: 1. NORMAL CTA OF THE CHEST. NO PULMONARY EMBOLI. 2. SCATTERED ATELECTASIS. MORE FOCAL ATELECTASIS VERSUS PNEUMONIA IN THE RIGHT LUNG BASE. COMMENT: Quality ID # [id number]: Final reports with documentation of one or more dose reduction techniques (e.g., Automated exposure control, adjustment of the mA and/or kV according to patient size, use of iterative reconstruction technique) TECHNICAL DOCUMENTATION: JOB ID: [id number] [employer]- All Rights Reserved Reading location - IP/workstation name: [email or web address]
--- NOTE | 2018-06-04 13:37 | PDOC CONSULTATION ---
Consultation Consult Date: 06/04/18 Attending physician:: PREET WORRELL Consult reason:: Acute/chronic respiratory failure History of Present Illness Admission Date/PCP: 06/04/18 10:03 KIMI CANELA MD History of Present Illness: MITCH ORELLANA is a 68 year old female, long history of chronic respiratory failure trached maintained on ventilator is status post long time at LTAC subsequently transferred home and this morning became acutely short of breath and came to the emergency room by EMS as to whether she had a cardiac arrest but at the time of her presentation to the emergency room apparently she had a good pulse and blood pressure. Certainly patient's overall condition as well as the radiographic evidence, highly consistent with aspiration pneumonitis. Past Medical History Cardiac Medical History: Reports: Hypertension Denies: Coronary Artery Disease, Myocardial Infarction Pulmonary Medical History: Reports: Chronic Obstructive Pulmonary Disease (COPD), Pneumonia - WHEN I WAS 7 YRS OLD, Respiratory Failure Denies: Asthma, Bronchitis Neurological Medical History: Denies: Seizures GI Medical History: Denies: Hepatitis, Hiatal Hernia Musculoskeltal Medical History: Reports: Arthritis Psychiatric Medical History: Reports: Depression Hematology: Past Surgical History Past Surgical History: Reports: Orthopedic Surgery Denies: Hysterectomy, Mastectomy, Pacemaker Social History Information Source: [facility] Records Lives with: Family Smoking Status: Former Smoker Passive smoke exposure as: Both Frequency of Alcohol Use: None Hx Recreational Drug Use: No Hx Prescription Drug Abuse: No Family History Parental Family History Reviewed: No Children Family History Reviewed: No Sibling(s) Family History Reviewed.: No Medication/Allergy Home Medications: Acetaminophen [Tylenol 325 mg Tablet] 325 mg PO Q4HP PRN 06/04/18 Chlorhexidine Gluconate [Peridex] 15 ml PO DAILY 06/04/18 Clonazepam [Klonopin 2 mg Tablet] 2 mg PO TIDP PRN 06/04/18 Enoxaparin Sodium [Lovenox Inj 40 mg/0.4 ml Disp.syrin] 40 mg SUBCUT DAILY 06/04/18 Escitalopram Oxalate [Lexapro] 20 mg PO DAILY 06/04/18 Fentanyl [Duragesic 25 Mcg/Hr Transdermal Patch] 1 each TD Q3D 06/04/18 Glucagon,Human Recombinant [Glucagon Emergency Kit] 1 mg IJ PRN PRN 06/04/18 Guaifenesin 400 mg PO PRN PRN 06/04/18 Insulin Lispro [Humalog] 0 unit SQ .SLIDING SCALE 06/04/18 Ipratropium/Albuterol Sulfate [Duoneb 3 ml Ampul] 3 ml NEB RTQ6 06/04/18 Loperamide HCl [Imodium A-D] 2 mg PO Q6HP PRN 06/04/18 Metoprolol Tartrate [Lopressor 50 mg Tablet] 50 mg PO Q12H 06/04/18 Multivitamin [Multiple Vitamins] 1 each PO DAILY 06/04/18 Omeprazole 40 mg PO DAILY 06/04/18 Quetiapine Fumarate [Seroquel 25 mg Tablet] 25 mg PO BID 06/04/18 Allergies/Adverse Reactions: No Known Allergies Allergy (Verified 10/25/14 09:26) Review of Systems ROS unobtainable: Due to endotracheal tube, Due to mental status Physical Exam Vital Signs: Temp Pulse Resp BP Pulse Ox 98.6 F 100 06/04/18 08:40 06/04/18 08:15 Intake & Output 06/03/18 06/04/18 06/05/18 06:59 06:59 06:59 Weight 67.5 kg General appearance: PRESENT: no acute distress, disheveled. ABSENT: cooperative Head exam: PRESENT: atraumatic, normocephalic Eye exam: PRESENT: conjunctiva pale. ABSENT: nystagmus, periorbital swelling, scleral icterus Mouth exam: PRESENT: dry mucosa, neck supple, tongue midline Neck exam: PRESENT: tracheostomy. ABSENT: carotid bruit, JVD, lymphadenopathy, thyromegaly, tracheal deviation Respiratory exam: PRESENT: decreased breath sounds, prolonged expiratory phas, rales, rhonchi, unlabored. ABSENT: retraction, stridor Cardiovascular exam: PRESENT: RRR, +S1, +S2, tachycardia GI/Abdominal exam: PRESENT: soft. ABSENT: tenderness Gentrourinary exam: PRESENT: indwelling catheter Extremities exam: ABSENT: calf tenderness, clubbing, joint swelling Musculoskeletal exam: ABSENT: ambulatory, deformity, dislocation Neurological exam: ABSENT: awake Skin exam: PRESENT: dry, warm Results Laboratory Results: 06/04/18 08:10 06/04/18 08:10 06/04/18 06/04/18 06/04/18 08:10 08:10 08:10 WBC 10.0 RBC 4.31 Hgb 10.1 L Hct 31.7 L MCV 74 L MCH 23.5 L MCHC 31.9 L RDW 19.1 H Plt Count 353 Seg Neutrophils % Not Reportable Lymphocytes % Not Reportable Monocytes % Not Reportable Eosinophils % Not Reportable Basophils % Not Reportable Absolute Neutrophils Not Reportable Absolute Lymphocytes Not Reportable Absolute Monocytes Not Reportable Absolute Eosinophils Not Reportable Absolute Basophils Not Reportable Carbonic Acid HCO3/H2CO3 Ratio ABG pH ABG pCO2 ABG pO2 ABG HCO3 ABG O2 Saturation ABG Base Excess VBG pH 7.13 L* VBG pCO2 74.7 H* VBG HCO3 24.5 VBG Base Excess -6.3 FiO2 Sodium 144.1 Potassium 4.7 Chloride 107 Carbon Dioxide 27 Anion Gap 10 BUN 22 H Creatinine 0.46 L Est GFR ( Amer) > 60 Est GFR (Non-Af Amer) > 60 Glucose 168 H Calcium 9.8 Total Bilirubin 0.3 AST 31 ALT 41 Alkaline Phosphatase 128 H Total Protein 7.5 Albumin 4.2 06/04/18 10:30 WBC RBC Hgb Hct MCV MCH MCHC RDW Plt Count Seg Neutrophils % Lymphocytes % Monocytes % Eosinophils % Basophils % Absolute Neutrophils Absolute Lymphocytes Absolute Monocytes Absolute Eosinophils Absolute Basophils Carbonic Acid 1.02 L HCO3/H2CO3 Ratio 21:1 ABG pH 7.44 ABG pCO2 33.8 L ABG pO2 113.9 H ABG HCO3 22.3 ABG O2 Saturation 98.3 H ABG Base Excess -1.4 VBG pH VBG pCO2 VBG HCO3 VBG Base Excess FiO2 40% Sodium Potassium Chloride Carbon Dioxide Anion Gap BUN Creatinine Est GFR ( Amer) Est GFR (Non-Af Amer) Glucose Calcium Total Bilirubin AST ALT Alkaline Phosphatase Total Protein Albumin 06/04/18 08:10 Troponin I < 0.012 Impressions: Chest X-Ray 06/04/18 08:07 IMPRESSION: Right lower lobe pneumonia. Assessment & Plan - Diagnosis (1) Acute and chronic respiratory failure Qualifiers: Respiratory failure complication: hypercapnia Qualified Code(s): J96.22 - Acute and chronic respiratory failure with hypercapnia Is this a current diagnosis for this admission?: Yes Plan: Chronically trached now aspirated into the right lung (2) Right lower lobe pneumonia Qualifiers: Pneumonia type: due to unspecified organism Qualified Code(s): J18.1 - Lobar pneumonia, unspecified organism Is this a current diagnosis for this admission?: Yes Plan: No positive cultures thus far (3) Chronic obstructive pulmonary disease Qualifiers: COPD type: unspecified COPD Qualified Code(s): J44.9 - Chronic obstructive pulmonary disease, unspecified Is this a current diagnosis for this admission?: Yes Plan: Xopenex (4) Scoliosis (and kyphoscoliosis), idiopathic Is this a current diagnosis for this admission?: Yes Plan: Musculoskeletal abnormalities contribute to her poor ventilation as well as her inability to clear secretion - Time Total Critical Time (Minutes): 60
[2018-06-04] MEDS: ENOXAPARIN SODIUM INJ 40 MG/0.4 ML DISP.SYRIN SUBCUT SCH (13:56)
[2018-06-04] MEDS: VANCOMYCIN HCL 1,000 MG in DEXTROSE 5%-WATER 250 ML IV SCH ×2 (13:56→22:03)
[2018-06-04] MEDS: NORMAL SALINE 1000 ML 1,000 ML IV PRN (13:59)
[2018-06-04] MEDS ORDERED: GUAIFENESIN 400 MG PO PRN (15:15)
[2018-06-04] MEDS ORDERED: GLUCAGON,HUMAN RECOMB 1 MG INJ IM PRN (15:16)
[2018-06-04] MEDS ORDERED: DEXTROSE 40% GEL 15 GM TUBE PO PRN ×2 (15:16)
[2018-06-04] MEDS ORDERED: DEXTROSE 50%-WATER 25 GM/50 ML DISP.SYRIN IV PRN ×2 (15:16)
[2018-06-04] MEDS ORDERED: GUAIFENESIN SYRP 200 MG/10 ML UDC PO PRN (15:45)
[2018-06-04] MEDS: CLONAZEPAM 1 MG TABLET PO PRN (16:03)
--- NOTE | 2018-06-04 16:33 | EKG REPORT ---
SEVERITY:- OTHERWISE NORMAL ECG - SINUS TACHYCARDIA VENTRICULAR PREMATURE COMPLEX : Confirmed by: Malina Dobbins 04-Jun-2018 16:32:29
[2018-06-04] MEDS: INSULIN LISPRO 100 UNIT/ML 3 ML VIAL SUBCUT SCH ×2 (16:45→22:40)
[2018-06-04] MEDS: PIPERACILLIN SODIUM/TAZOBACTAM 3.375 GM in NORMAL SALINE 100 ML IV SCH (17:16)
[2018-06-04 17:54] LABS: ARTERIAL BLOOD BASE EXCESS -0.5 mmol/L; ARTERIAL BLOOD FIO2 35%; ARTERIAL BLOOD H2CO3 0.76 mmol/L (1.05-1.35); ARTERIAL BLOOD HCO3 21.2 mmol/L (20-24); ARTERIAL BLOOD O2 SATURATION 98.4 % (94-98); ARTERIAL BLOOD PCO2 25.1 mmHg (35-45); ARTERIAL BLOOD PH 7.54 (7.35-7.45); ARTERIAL BLOOD PO2 104.6 mmHg (80-100); ARTERIAL BLOOD TOTAL CO2 21.9 mmol/L (21-25)
[2018-06-04 17:58] LABS: CREATINE KINASE MB 0.86 ng/mL (<4.55); TROPONIN I 0.053 ng/mL
[2018-06-04] MEDS: IPRATROPIUM/ALBUTEROL 0.5-2.5 MG/3 ML AMPUL NEB SCH (20:22)
[2018-06-04] MEDS: QUETIAPINE FUMARATE 25 MG TABLET PO SCH (22:04)
[2018-06-04] MEDS: METOPROLOL TARTRATE 50 MG TABLET PO SCH (22:04)
[2018-06-04] MEDS: FAMOTIDINE INJ/PF 20 MG/2 ML SDV IV SCH (22:04)
[2018-06-04 23:41] LABS: CREATINE KINASE MB 0.52 ng/mL (<4.55); TROPONIN I 0.023 ng/mL
[2018-06-05] MEDS: PIPERACILLIN SODIUM/TAZOBACTAM 3.375 GM in NORMAL SALINE 100 ML IV SCH ×4 (00:30→17:40)
[2018-06-05] MEDS: IPRATROPIUM/ALBUTEROL 0.5-2.5 MG/3 ML AMPUL NEB SCH ×4 (01:25→20:11)
[2018-06-05 04:59] LABS: HEMATOCRIT 24.2 % (36.0-47.0); HEMOGLOBIN 8.1 g/dL (12.0-15.5); RED BLOOD COUNT 3.39 10^6/uL (3.72-5.28); WHITE BLOOD COUNT 5.7 10^3/uL (4.0-10.5)
[2018-06-05 05:00] LABS: ABSOLUTE EOSINOPHILS # (AUTO) 0.3 10^3/uL (0.0-0.6); ABSOLUTE LYMPHOCYTES (AUTO) 1.2 10^3/uL (0.5-4.7); ABSOLUTE MONOCYTES (AUTO) 0.6 10^3/uL (0.1-1.4); ABSOLUTE NEUT (AUTO) 3.6 10^3/uL (1.7-8.2); BASOPHILS % (AUTO) 0.8 % (0-2); EOSINOPHILS % (AUTO) 4.9 % (0-6); LYMPHOCYTES % (AUTO) 20.9 % (13-45); MEAN CORPUSCULAR HEMOGLOBIN 23.9 pg (27.0-33.4); MEAN CORPUSCULAR HGB CONC 33.5 g/dL (32.0-36.0); MEAN CORPUSCULAR VOLUME 71 fl (80-97); MONOCYTES % (AUTO) 9.8 % (3-13); PLATELET COUNT 280 10^3/uL (150-450); SEGMENTED NEUTROPHILS % (AUTO) 63.6 % (42-78); TOTAL CELLS COUNTED % (AUTO) 100 %
[2018-06-05 05:08] LABS: ARTERIAL BLOOD BASE EXCESS -3.3 mmol/L; ARTERIAL BLOOD H2CO3 0.88 mmol/L (1.05-1.35); ARTERIAL BLOOD PCO2 29.4 mmHg (35-45); ARTERIAL BLOOD PH 7.45 (7.35-7.45); ARTERIAL BLOOD PO2 101.3 mmHg (80-100); ARTERIAL BLOOD TOTAL CO2 20.9 mmol/L (21-25)
[2018-06-05 05:09] LABS: ARTERIAL BLOOD FIO2 35%
[2018-06-05 05:10] LABS: ANION GAP 8 (5-19)
[2018-06-05 05:15] LABS: ALANINE AMINOTRANSFERASE 26 U/L (9-52); ALKALINE PHOSPHATASE 99 U/L (38-126); ASPARTATE AMINO TRANSFERASE 16 U/L (14-36); BILIRUBIN,DIRECT 0.2 mg/dL (0.0-0.4); BILIRUBIN,TOTAL 0.3 mg/dL (0.2-1.3); BLOOD UREA NITROGEN 11 mg/dL (7-20); CALCIUM 9.1 mg/dL (8.4-10.2); CARBON DIOXIDE 20 mmol/L (22-30); CHLORIDE 114 mmol/L (98-107); GLUCOSE 86 mg/dL (75-110); SODIUM 141.7 mmol/L (137-145); TOTAL PROTEIN 5.8 g/dL (6.3-8.2)
[2018-06-05 05:35] LABS: POTASSIUM 3.4 mmol/L (3.6-5.0)
--- NOTE | 2018-06-05 06:46 | RADIOLOGY REPORT (SQ) ---
EXAM DESCRIPTION: XR CHEST 1 VIEW COMPLETED DATE/TME: 06/05/2018 06:00 CLINICAL HISTORY: 68 years Female, aspiration COMPARISON: One day prior. NUMBER OF VIEWS/TECHNIQUE: 1/AP FINDINGS: Moderate mixed airspace and interstitial opacities. Thoracic spinal hardware. Moderate opacity at the medial left upper hemithorax.Moderately enlarged cardiac silhouette. No pneumothorax. Stable bony thorax. IMPRESSION: No significant change.
[2018-06-05] MEDS: INSULIN LISPRO 100 UNIT/ML 3 ML VIAL SUBCUT SCH ×4 (08:28→21:57)
[2018-06-05] MEDS ORDERED: ENOXAPARIN SODIUM INJ 40 MG/0.4 ML DISP.SYRIN SUBCUT SCH (10:00)
[2018-06-05] MEDS ORDERED: (PENDING PHARMACY ID) (Enoxaparin Sodium 40 MG) SUBCUT SCH (10:00)
[2018-06-05] MEDS: ENOXAPARIN SODIUM INJ 40 MG/0.4 ML DISP.SYRIN SUBCUT SCH (10:21)
[2018-06-05] MEDS: MULTIVITAMIN TABLET PO SCH (10:23)
[2018-06-05] MEDS: FAMOTIDINE INJ/PF 20 MG/2 ML SDV IV SCH ×2 (10:23→21:56)
[2018-06-05] MEDS: LANSOPRAZOLE 30 MG TAB.RAP.DR PO SCH (10:23)
[2018-06-05] MEDS: METOPROLOL TARTRATE 50 MG TABLET PO SCH ×2 (10:24→21:57)
[2018-06-05] MEDS: FENTANYL 25 MCG/HR PATCH.TD72 TD SCH (10:25)
[2018-06-05] MEDS ORDERED: POTASSIUM CHLORIDE 20 MEQ/15 ML UDCUP PEG ONE (10:30)
[2018-06-05] MEDS: VANCOMYCIN HCL 1,000 MG in DEXTROSE 5%-WATER 250 ML IV SCH ×2 (10:31→21:58)
[2018-06-05] MEDS: NORMAL SALINE 1000 ML 1,000 ML IV PRN (10:34)
[2018-06-05] MEDS: LIDOCAINE 5% (700 MG) TRANSDERMAL ADH..PATCH TP SCH (10:37)
[2018-06-05] MEDS: CHLORHEXIDINE GLUCONATE 0.12% ORAL RINSE 15 ML UDC PO SCH (10:39)
[2018-06-05] MEDS: ESCITALOPRAM OXALATE 10 MG TABLET PO SCH (10:39)
[2018-06-05] MEDS: QUETIAPINE FUMARATE 25 MG TABLET PO SCH ×2 (10:40→22:00)
--- NOTE | 2018-06-05 10:46 | PDOC PROGRESS REPORT ---
Subjective Progress Note for:: 06/05/18 Subjective:: Patient is currently doing much better Patient seen by the cardiology and a noncardiac chest pain with the patient have a CPR was done Patient's otherwise no fever no chills Reason For Visit: ACUTE RESPIRATORY DISTRESS AND PNEUMOINA Physical Exam Vital Signs: Temp Pulse Resp BP Pulse Ox 99.7 F 79 18 121/59 L 99 06/05/18 10:00 06/05/18 10:00 06/05/18 10:00 06/05/18 10:00 06/05/18 10:00 Intake & Output 06/04/18 06/05/18 06/06/18 06:59 06:59 06:59 Intake Total 2700 Output Total 810 165 Balance 1890 -165 Weight 66.2 kg General appearance: PRESENT: no acute distress, well-developed, well-nourished Head exam: PRESENT: atraumatic, normocephalic Eye exam: PRESENT: conjunctiva pink, EOMI, PERRLA. ABSENT: scleral icterus Ear exam: PRESENT: normal external ear exam Mouth exam: PRESENT: moist, tongue midline Neck exam: PRESENT: full ROM. ABSENT: carotid bruit, JVD, lymphadenopathy, thyromegaly Respiratory exam: PRESENT: clear to auscultation ryley Cardiovascular exam: PRESENT: RRR. ABSENT: diastolic murmur, rubs, systolic murmur Vascular exam: PRESENT: normal capillary refill GI/Abdominal exam: PRESENT: normal bowel sounds, soft. ABSENT: distended, guarding, mass, organolmegaly, rebound, tenderness Rectal exam: PRESENT: deferred Neurological exam: PRESENT: alert, awake, oriented to person, oriented to place. ABSENT: motor sensory deficit Psychiatric exam: PRESENT: appropriate affect, normal mood. ABSENT: homicidal ideation, suicidal ideation Skin exam: PRESENT: dry, intact, warm. ABSENT: cyanosis, rash Results Laboratory Results: 06/05/18 04:26 06/05/18 04:26 06/04/18 06/04/18 06/05/18 08:10 15:30 04:26 WBC 5.7 RBC 3.39 L Hgb 8.1 L Hct 24.2 L MCV 71 L MCH 23.9 L MCHC 33.5 RDW 19.0 H Plt Count 280 Seg Neutrophils % 63.6 Lymphocytes % 20.9 Monocytes % 9.8 Eosinophils % 4.9 Basophils % 0.8 Absolute Neutrophils 3.6 Absolute Lymphocytes 1.2 Absolute Monocytes 0.6 Absolute Eosinophils 0.3 Absolute Basophils 0.0 Carbonic Acid 0.76 L HCO3/H2CO3 Ratio 27:1 ABG pH 7.54 H ABG pCO2 25.1 L ABG pO2 104.6 H ABG HCO3 21.2 ABG O2 Saturation 98.4 H ABG Base Excess -0.5 FiO2 35% Sodium Potassium Chloride Carbon Dioxide Anion Gap BUN Creatinine Est GFR ( Amer) Est GFR (Non-Af Amer) Glucose Lactic Acid 0.7 Calcium Magnesium Total Bilirubin AST ALT Alkaline Phosphatase Total Protein Albumin 06/05/18 06/05/18 04:26 04:56 WBC RBC Hgb Hct MCV MCH MCHC RDW Plt Count Seg Neutrophils % Lymphocytes % Monocytes % Eosinophils % Basophils % Absolute Neutrophils Absolute Lymphocytes Absolute Monocytes Absolute Eosinophils Absolute Basophils Carbonic Acid 0.88 L HCO3/H2CO3 Ratio 22:1 ABG pH 7.45 ABG pCO2 29.4 L ABG pO2 101.3 H ABG HCO3 20.0 ABG O2 Saturation 98.0 ABG Base Excess -3.3 FiO2 35% Sodium 141.7 Potassium 3.4 L D Chloride 114 H Carbon Dioxide 20 L Anion Gap 8 BUN 11 Creatinine 0.50 L Est GFR ( Amer) > 60 Est GFR (Non-Af Amer) > 60 Glucose 86 Lactic Acid Calcium 9.1 Magnesium 1.9 Total Bilirubin 0.3 AST 16 ALT 26 Alkaline Phosphatase 99 Total Protein 5.8 L Albumin 3.0 L 06/04/18 06/04/18 06/04/18 08:10 11:42 11:42 Creatine Kinase 54 CK-MB (CK-2) 0.85 Troponin I < 0.012 0.075 06/04/18 06/04/18 06/04/18 17:08 17:08 23:05 Creatine Kinase 85 83 CK-MB (CK-2) 0.86 Troponin I 0.053 06/04/18 23:05 Creatine Kinase CK-MB (CK-2) 0.52 Troponin I 0.023 Impressions: Chest/Abdomen CTA 06/04/18 00:00 IMPRESSION: 1. NORMAL CTA OF THE CHEST. NO PULMONARY EMBOLI. 2. SCATTERED ATELECTASIS. MORE FOCAL ATELECTASIS VERSUS PNEUMONIA IN THE RIGHT LUNG BASE. Chest X-Ray 06/05/18 06:00 IMPRESSION: No significant change. Assessment & Plan - Diagnosis (1) Acute and chronic respiratory failure Qualifiers: Respiratory failure complication: hypercapnia Qualified Code(s): J96.22 - Acute and chronic respiratory failure with hypercapnia Is this a current diagnosis for this admission?: Yes Plan: Continues on a ventilation Follow with the pulmonary (2) Right lower lobe pneumonia Qualifiers: Pneumonia type: due to unspecified organism Qualified Code(s): J18.1 - Lobar pneumonia, unspecified organism Is this a current diagnosis for this admission?: Yes Plan: Start the patient on IV antibiotic (3) Hypertension Qualifiers: Hypertension type: essential hypertension Qualified Code(s): I10 - Essential (primary) hypertension Is this a current diagnosis for this admission?: Yes Plan: Currently all stable (4) Post-polio syndrome Is this a current diagnosis for this admission?: Yes (5) Scoliosis (and kyphoscoliosis), idiopathic Is this a current diagnosis for this admission?: Yes (6) Chest pain Qualifiers: Chest pain type: unspecified Qualified Code(s): R07.9 - Chest pain, unspecified Is this a current diagnosis for this admission?: Yes Plan: Noncardiac chest pain We will put the Lidoderm patch for the chest wall pain on CPR site - Time Time Spent with patient: 15-24 minutes Medications reviewed and adjusted accordingly: Yes Anticipated discharge: Home Within: Other - Plan Summary Plan Summary: Patient seen and examined in ICU Continues to current medications
[2018-06-05] MEDS: ACETYLCYSTEINE 20% SOLN 800 MG/4 ML VIAL.NEB NEB SCH ×2 (13:49→20:11)
[2018-06-05] MEDS: CLONAZEPAM 1 MG TABLET PO PRN (16:22)
[2018-06-05] MEDS ORDERED: BUSPIRONE HCL 10 MG TABLET PO ONE (20:30)
--- NOTE | 2018-06-05 21:44 | Progress Note ---
Provider Note Provider Note: CARDIOLOGY note by Dr. Rachel Tillman on 06/05/2018. Note reason for me seeing the patient is chest pain. Chart reviewed. Patient examined. Note patient with a history of severe COPD history of tracheostomy had CPR by her home health nurse since the nurse thought that the patient had no pulse. When EMS went that she had a mucous plugging which they suctioned out and at present the patient stable she does have chest wall pain reproducible by moving the chest or by pressing on the chest. Her EKG is normal. And her cardiac enzymes are really not elevated. Her physical examination is remarkable for COPD, and there is a presence of tracheostomy tube in situ. There is no evidence of heart failure on examination. Labs and EKGs and x-rays of noted. EKG initially showed sinus tachycardia with some PVCs otherwise within normal limits. Subsequent EKG is within normal limits. Impression chest wall pain secondary to CPR. No evidence of acute coronary syndrome. COPD and other diagnoses as mentioned by Dr. Corcoran. This has been discussed with Dr. Corcoran. I do not feel that there is a need for an in-depth formal cardiac consultation will sign off. Thanking you end of dictation
[2018-06-05] MEDS: OXYCODONE-ACETAMINOPHEN 5-325 MG TABLET PO PRN (21:56)
--- NOTE | 2018-06-05 22:52 | EKG REPORT ---
SEVERITY:- NORMAL ECG - SINUS RHYTHM : Confirmed by: Malina Dobbins 05-Jun-2018 22:51:23
[2018-06-06] MEDS: CLONAZEPAM 1 MG TABLET PO PRN (00:30)
[2018-06-06] MEDS: PIPERACILLIN SODIUM/TAZOBACTAM 3.375 GM in NORMAL SALINE 100 ML IV SCH ×4 (01:21→17:05)
[2018-06-06] MEDS: OXYCODONE-ACETAMINOPHEN 5-325 MG TABLET PO PRN ×2 (01:23→08:11)
[2018-06-06] MEDS: IPRATROPIUM/ALBUTEROL 0.5-2.5 MG/3 ML AMPUL NEB SCH ×4 (02:14→19:44)
[2018-06-06 04:15] LABS: ABSOLUTE BASOPHILS # (AUTO) 0.1 10^3/uL (0.0-0.2); ABSOLUTE EOSINOPHILS # (AUTO) 0.4 10^3/uL (0.0-0.6); ABSOLUTE LYMPHOCYTES (AUTO) 1.2 10^3/uL (0.5-4.7); ABSOLUTE MONOCYTES (AUTO) 0.6 10^3/uL (0.1-1.4); BASOPHILS % (AUTO) 0.6 % (0-2); EOSINOPHILS % (AUTO) 4.3 % (0-6); HEMATOCRIT 25.5 % (36.0-47.0); HEMOGLOBIN 8.3 g/dL (12.0-15.5); LYMPHOCYTES % (AUTO) 13.2 % (13-45); MEAN CORPUSCULAR HEMOGLOBIN 23.5 pg (27.0-33.4); MEAN CORPUSCULAR HGB CONC 32.7 g/dL (32.0-36.0); MEAN CORPUSCULAR VOLUME 72 fl (80-97); MONOCYTES % (AUTO) 6.7 % (3-13); PLATELET COUNT 258 10^3/uL (150-450); RED BLOOD COUNT 3.54 10^6/uL (3.72-5.28); RED CELL DISTRIBUTION WIDTH 19.3 % (11.5-14.0); SEGMENTED NEUTROPHILS % (AUTO) 75.2 % (42-78); TOTAL CELLS COUNTED % (AUTO) 100 %; WHITE BLOOD COUNT 9.3 10^3/uL (4.0-10.5)
[2018-06-06 04:33] LABS: ALANINE AMINOTRANSFERASE 28 U/L (9-52); ALBUMIN 3.4 g/dL (3.5-5.0); ALKALINE PHOSPHATASE 102 U/L (38-126); ANION GAP 8 (5-19); ASPARTATE AMINO TRANSFERASE 16 U/L (14-36); BILIRUBIN,DIRECT 0.2 mg/dL (0.0-0.4); BILIRUBIN,TOTAL 0.4 mg/dL (0.2-1.3); BLOOD UREA NITROGEN 7 mg/dL (7-20); CALCIUM 9.6 mg/dL (8.4-10.2); CARBON DIOXIDE 21 mmol/L (22-30); CHLORIDE 114 mmol/L (98-107); GLUCOSE 89 mg/dL (75-110); POTASSIUM 3.8 mmol/L (3.6-5.0); SODIUM 142.7 mmol/L (137-145); TOTAL PROTEIN 6.2 g/dL (6.3-8.2)
[2018-06-06] MEDS: ACETYLCYSTEINE 20% SOLN 800 MG/4 ML VIAL.NEB NEB SCH ×2 (08:01→19:44)
[2018-06-06] MEDS: INSULIN LISPRO 100 UNIT/ML 3 ML VIAL SUBCUT SCH ×4 (08:06→21:43)
[2018-06-06] MEDS: LANSOPRAZOLE 30 MG TAB.RAP.DR PO SCH (08:11)
[2018-06-06] MEDS: NORMAL SALINE 1000 ML 1,000 ML IV PRN (08:11)
--- NOTE | 2018-06-06 08:48 | RADIOLOGY REPORT (SQ) ---
EXAM DESCRIPTION: CHEST SINGLE VIEW COMPLETED DATE/TIME: 06/06/2018 6:19 am REASON FOR STUDY: ett/pna/acute on chronic RF COMPARISON: CT chest 11/25/2017, 02/01/2018, 06/04/2018 Chest films 11/29/2017, 02/08/2018, 06/04/2018, 06/05/2018 EXAM PARAMETERS: NUMBER OF VIEWS: One view. TECHNIQUE: Single frontal radiographic view of the chest acquired. RADIATION DOSE: NA LIMITATIONS: None. FINDINGS: LUNGS AND PLEURA: There to the prior chest film 06/05/2018, there is patchy airspace disease in the right lower lobe marked with a [place]. Although the remainder of the lungs are distorted by thoracic scoliosis and peculiar shaped thorax, no other focal infiltrates are suspected. No pleural effusion. No pneumothorax. MEDIASTINUM AND HILAR STRUCTURES: No masses. Contour normal. HEART AND VASCULAR STRUCTURES: Stable mild cardiomegaly BONES: Chest cavity distorted by convex leftward thoracic curvature. Howe apple over the spine. HARDWARE: Tracheostomy tube tip superimposed on the upper portion of the Howe apple OTHER: No other significant finding. IMPRESSION: Early or developing right basilar airspace disease compared to chest film 06/05/2018. TECHNICAL DOCUMENTATION: JOB ID: [id number] [employer]- All Rights Reserved Reading location - IP/workstation name: [email or web address]
[2018-06-06] MEDS: VANCOMYCIN HCL 1,000 MG in DEXTROSE 5%-WATER 250 ML IV SCH (09:55)
[2018-06-06] MEDS: ENOXAPARIN SODIUM INJ 40 MG/0.4 ML DISP.SYRIN SUBCUT SCH (09:55)
[2018-06-06] MEDS: FAMOTIDINE INJ/PF 20 MG/2 ML SDV IV SCH (09:55)
[2018-06-06] MEDS: QUETIAPINE FUMARATE 25 MG TABLET PO SCH ×2 (09:55→21:41)
[2018-06-06] MEDS: CHLORHEXIDINE GLUCONATE 0.12% ORAL RINSE 15 ML UDC PO SCH (09:55)
[2018-06-06] MEDS: MULTIVITAMIN TABLET PO SCH (09:56)
[2018-06-06] MEDS: LIDOCAINE 5% (700 MG) TRANSDERMAL ADH..PATCH TP SCH (09:56)
[2018-06-06] MEDS: ESCITALOPRAM OXALATE 10 MG TABLET PO SCH (09:56)
[2018-06-06] MEDS: BUSPIRONE HCL 10 MG TABLET PO SCH ×2 (09:56→21:41)
[2018-06-06] MEDS: METOPROLOL TARTRATE 50 MG TABLET PO SCH ×2 (09:56→21:41)
--- NOTE | 2018-06-06 20:26 | PDOC PROGRESS REPORT ---
Subjective Progress Note for:: 06/06/18 Subjective:: Patient was seen by the bedside,, she was admitted over the weekend after prolonged hospitalization, she now has a trach, dependent on long-term mechanical ventilation. She was admitted over the weekend for the management of aspiration pneumonia, she is presently in ICU stable on mechanical ventilation patient will be downgraded to IMCU floor Reason For Visit: ACUTE RESPIRATORY DISTRESS AND PNEUMOINA Physical Exam Vital Signs: Temp Pulse Resp BP Pulse Ox 98.8 F 75 20 109/49 L 98 06/06/18 18:10 06/06/18 19:47 06/06/18 19:47 06/06/18 18:10 06/06/18 19:47 Intake & Output 06/05/18 06/06/18 06/07/18 06:59 06:59 06:59 Intake Total 2700 1187 1450 Output Total 810 2085 930 Balance 1890 -898 520 Weight 66.2 kg 67 kg General appearance: PRESENT: no acute distress Eye exam: PRESENT: PERRLA Neck exam: PRESENT: full ROM, tracheostomy Respiratory exam: PRESENT: rhonchi Cardiovascular exam: PRESENT: RRR, +S1, +S2 Vascular exam: PRESENT: normal capillary refill GI/Abdominal exam: PRESENT: normal bowel sounds, soft Rectal exam: PRESENT: deferred Neurological exam: PRESENT: alert Psychiatric exam: PRESENT: appropriate affect, normal mood Skin exam: PRESENT: dry, intact, warm Results Laboratory Results: 06/06/18 04:00 06/06/18 04:00 06/06/18 06/06/18 06/06/18 04:00 04:00 06:30 WBC 9.3 RBC 3.54 L Hgb 8.3 L Hct 25.5 L MCV 72 L MCH 23.5 L MCHC 32.7 RDW 19.3 H Plt Count 258 Seg Neutrophils % 75.2 Lymphocytes % 13.2 Monocytes % 6.7 Eosinophils % 4.3 Basophils % 0.6 Absolute Neutrophils 7.0 Absolute Lymphocytes 1.2 Absolute Monocytes 0.6 Absolute Eosinophils 0.4 Absolute Basophils 0.1 Carbonic Acid Cancelled HCO3/H2CO3 Ratio Cancelled ABG pH Cancelled ABG pCO2 Cancelled ABG pO2 Cancelled ABG HCO3 Cancelled ABG O2 Saturation Cancelled ABG Base Excess Cancelled FiO2 Cancelled Sodium 142.7 Potassium 3.8 Chloride 114 H Carbon Dioxide 21 L Anion Gap 8 BUN 7 Creatinine 0.48 L Est GFR ( Amer) > 60 Est GFR (Non-Af Amer) > 60 Glucose 89 Calcium 9.6 Magnesium 2.0 Total Bilirubin 0.4 AST 16 ALT 28 Alkaline Phosphatase 102 Total Protein 6.2 L Albumin 3.4 L 06/04/18 16:12 Tracheal Aspirate Gram Stain - Final 06/04/18 16:12 Sweeney Catheter Urine Culture - Final NO GROWTH 2 DAYS 06/04/18 06/04/18 06/04/18 08:10 11:42 11:42 Creatine Kinase 54 CK-MB (CK-2) 0.85 Troponin I < 0.012 0.075 06/04/18 06/04/18 06/04/18 17:08 17:08 23:05 Creatine Kinase 85 83 CK-MB (CK-2) 0.86 Troponin I 0.053 06/04/18 23:05 Creatine Kinase CK-MB (CK-2) 0.52 Troponin I 0.023 Impressions: Chest/Abdomen CTA 06/04/18 00:00 IMPRESSION: 1. NORMAL CTA OF THE CHEST. NO PULMONARY EMBOLI. 2. SCATTERED ATELECTASIS. MORE FOCAL ATELECTASIS VERSUS PNEUMONIA IN THE RIGHT LUNG BASE. Chest X-Ray 06/06/18 06:00 IMPRESSION: Early or developing right basilar airspace disease compared to chest film 06/05/2018. Assessment & Plan - Diagnosis (1) Acute and chronic respiratory failure Qualifiers: Respiratory failure complication: hypercapnia Qualified Code(s): J96.22 - Acute and chronic respiratory failure with hypercapnia Is this a current diagnosis for this admission?: Yes Plan: Continue vent support (2) Pneumonia Qualifiers: Pneumonia type: aspiration pneumonia Aspiration pneumonia type: unspecified Laterality: unspecified laterality Lung location: unspecified part of lung Qualified Code(s): J69.0 - Pneumonitis due to inhalation of food and vomit Is this a current diagnosis for this admission?: Yes Plan: The sputum culture grows gram negative apple, DC vancomycin continue Zosyn (3) Lobar pneumonia Is this a current diagnosis for this admission?: Yes
[2018-06-07] MEDS: PIPERACILLIN SODIUM/TAZOBACTAM 3.375 GM in NORMAL SALINE 100 ML IV SCH ×4 (01:25→17:41)
[2018-06-07] MEDS: IPRATROPIUM/ALBUTEROL 0.5-2.5 MG/3 ML AMPUL NEB SCH ×4 (01:28→19:27)
[2018-06-07 05:08] LABS: ABSOLUTE BASOPHILS # (AUTO) 0.1 10^3/uL (0.0-0.2); ABSOLUTE EOSINOPHILS # (AUTO) 0.5 10^3/uL (0.0-0.6); ABSOLUTE MONOCYTES (AUTO) 0.4 10^3/uL (0.1-1.4); ABSOLUTE NEUT (AUTO) 4.3 10^3/uL (1.7-8.2); BASOPHILS % (AUTO) 0.8 % (0-2); EOSINOPHILS % (AUTO) 8.3 % (0-6); HEMOGLOBIN 8.8 g/dL (12.0-15.5); LYMPHOCYTES % (AUTO) 15.9 % (13-45); MEAN CORPUSCULAR HEMOGLOBIN 23.6 pg (27.0-33.4); MEAN CORPUSCULAR HGB CONC 32.5 g/dL (32.0-36.0); MEAN CORPUSCULAR VOLUME 73 fl (80-97); PLATELET COUNT 258 10^3/uL (150-450); RED BLOOD COUNT 3.72 10^6/uL (3.72-5.28); TOTAL CELLS COUNTED % (AUTO) 100 %; WHITE BLOOD COUNT 6.3 10^3/uL (4.0-10.5)
[2018-06-07 05:40] LABS: ALANINE AMINOTRANSFERASE 35 U/L (9-52); ALBUMIN 3.3 g/dL (3.5-5.0); ALKALINE PHOSPHATASE 105 U/L (38-126); ANION GAP 6 (5-19); ASPARTATE AMINO TRANSFERASE 17 U/L (14-36); BILIRUBIN,DIRECT 0.1 mg/dL (0.0-0.4); BILIRUBIN,TOTAL 0.2 mg/dL (0.2-1.3); BLOOD UREA NITROGEN 8 mg/dL (7-20); CALCIUM 9.2 mg/dL (8.4-10.2); CARBON DIOXIDE 24 mmol/L (22-30); CHLORIDE 115 mmol/L (98-107); GLUCOSE 103 mg/dL (75-110); POTASSIUM 4.1 mmol/L (3.6-5.0); SODIUM 145.4 mmol/L (137-145); TOTAL PROTEIN 6.2 g/dL (6.3-8.2)
[2018-06-07] MEDS: ACETYLCYSTEINE 20% SOLN 800 MG/4 ML VIAL.NEB NEB SCH ×2 (09:05→19:27)
[2018-06-07] MEDS: INSULIN LISPRO 100 UNIT/ML 3 ML VIAL SUBCUT SCH ×4 (09:35→22:28)
[2018-06-07] MEDS: NORMAL SALINE 1000 ML 1,000 ML IV PRN (09:36)
[2018-06-07] MEDS: METOPROLOL TARTRATE 50 MG TABLET PO SCH ×2 (09:38→22:45)
[2018-06-07] MEDS: MULTIVITAMIN TABLET PO SCH (09:39)
[2018-06-07] MEDS: LANSOPRAZOLE 30 MG TAB.RAP.DR PO SCH (09:39)
[2018-06-07] MEDS: QUETIAPINE FUMARATE 25 MG TABLET PO SCH ×2 (09:39→22:44)
[2018-06-07] MEDS: ESCITALOPRAM OXALATE 10 MG TABLET PO SCH (09:39)
[2018-06-07] MEDS: BUSPIRONE HCL 10 MG TABLET PO SCH ×2 (09:39→22:44)
[2018-06-07] MEDS: ENOXAPARIN SODIUM INJ 40 MG/0.4 ML DISP.SYRIN SUBCUT SCH (09:40)
[2018-06-07] MEDS: CHLORHEXIDINE GLUCONATE 0.12% ORAL RINSE 15 ML UDC PO SCH (09:43)
[2018-06-07 11:05] LABS: VANCOMYCIN,TROUGH 9.9 ug/mL (5.0-20.0)
[2018-06-07] MEDS: LIDOCAINE 5% (700 MG) TRANSDERMAL ADH..PATCH TP SCH (12:26)
--- NOTE | 2018-06-07 18:30 | PDOC PROGRESS REPORT ---
Subjective Progress Note for:: 06/07/18 Subjective:: Patient seen by the bedside she has a trach, unable to speak, very frustrating she has no speaking valve in place Reason For Visit: ACUTE RESPIRATORY DISTRESS AND PNEUMOINA Physical Exam Vital Signs: Temp Pulse Resp BP Pulse Ox 98.8 F 70 12 119/55 L 99 06/07/18 15:40 06/07/18 15:40 06/07/18 15:40 06/07/18 15:40 06/07/18 15:40 Intake & Output 06/06/18 06/07/18 06/08/18 06:59 06:59 06:59 Intake Total 1187 2810 542 Output Total 2085 2080 450 Balance -898 730 92 Weight 67 kg 66.7 kg General appearance: PRESENT: no acute distress Neck exam: PRESENT: tracheostomy Respiratory exam: PRESENT: decreased breath sounds Cardiovascular exam: PRESENT: +S1, +S2 GI/Abdominal exam: PRESENT: soft Neurological exam: PRESENT: alert Results Laboratory Results: 06/07/18 04:59 06/07/18 04:59 06/07/18 06/07/18 04:59 04:59 WBC 6.3 RBC 3.72 Hgb 8.8 L Hct 27.0 L MCV 73 L MCH 23.6 L MCHC 32.5 RDW 19.0 H Plt Count 258 Seg Neutrophils % 68.0 Lymphocytes % 15.9 Monocytes % 7.0 Eosinophils % 8.3 H Basophils % 0.8 Absolute Neutrophils 4.3 Absolute Lymphocytes 1.0 Absolute Monocytes 0.4 Absolute Eosinophils 0.5 Absolute Basophils 0.1 Sodium 145.4 H Potassium 4.1 Chloride 115 H Carbon Dioxide 24 Anion Gap 6 BUN 8 Creatinine 0.60 Est GFR ( Amer) > 60 Est GFR (Non-Af Amer) > 60 Glucose 103 Calcium 9.2 Magnesium 2.1 Total Bilirubin 0.2 AST 17 ALT 35 Alkaline Phosphatase 105 Total Protein 6.2 L Albumin 3.3 L 06/04/18 16:12 Tracheal Aspirate Gram Stain - Final 06/04/18 16:12 Tracheal Aspirate Sputum Culture - Final Pseudomonas Aeruginosa Corynebacterium Striatum Normal Martina Absent 06/04/18 06/04/18 06/04/18 08:10 11:42 11:42 Creatine Kinase 54 CK-MB (CK-2) 0.85 Troponin I < 0.012 0.075 06/04/18 06/04/18 06/04/18 17:08 17:08 23:05 Creatine Kinase 85 83 CK-MB (CK-2) 0.86 Troponin I 0.053 06/04/18 23:05 Creatine Kinase CK-MB (CK-2) 0.52 Troponin I 0.023 Impressions: Chest/Abdomen CTA 06/04/18 00:00 IMPRESSION: 1. NORMAL CTA OF THE CHEST. NO PULMONARY EMBOLI. 2. SCATTERED ATELECTASIS. MORE FOCAL ATELECTASIS VERSUS PNEUMONIA IN THE RIGHT LUNG BASE. Chest X-Ray 06/06/18 06:00 IMPRESSION: Early or developing right basilar airspace disease compared to chest film 06/05/2018. Assessment & Plan - Diagnosis (1) Acute and chronic respiratory failure Qualifiers: Respiratory failure complication: hypercapnia Qualified Code(s): J96.22 - Acute and chronic respiratory failure with hypercapnia Is this a current diagnosis for this admission?: Yes Plan: Continue vent management (2) Pneumonia Qualifiers: Pneumonia type: aspiration pneumonia Aspiration pneumonia type: unspecified Laterality: unspecified laterality Lung location: unspecified part of lung Qualified Code(s): J69.0 - Pneumonitis due to inhalation of food and vomit Is this a current diagnosis for this admission?: Yes (3) Lobar pneumonia Is this a current diagnosis for this admission?: Yes (4) Pneumonia due to Pseudomonas aeruginosa Is this a current diagnosis for this admission?: Yes Plan: She has Pseudomonas pneumonia presently on Zosyn intravenously,physical therapy ordered
[2018-06-08] MEDS: PIPERACILLIN SODIUM/TAZOBACTAM 3.375 GM in NORMAL SALINE 100 ML IV SCH ×4 (01:39→18:12)
[2018-06-08] MEDS: IPRATROPIUM/ALBUTEROL 0.5-2.5 MG/3 ML AMPUL NEB SCH ×4 (01:50→19:14)
[2018-06-08] MEDS: ACETYLCYSTEINE 20% SOLN 800 MG/4 ML VIAL.NEB NEB SCH ×2 (07:36→19:14)
[2018-06-08] MEDS: LANSOPRAZOLE 30 MG TAB.RAP.DR PO SCH (08:22)
[2018-06-08] MEDS: INSULIN LISPRO 100 UNIT/ML 3 ML VIAL SUBCUT SCH ×4 (08:42→22:12)
[2018-06-08] MEDS: ESCITALOPRAM OXALATE 10 MG TABLET PO SCH (10:05)
[2018-06-08] MEDS: MULTIVITAMIN TABLET PO SCH (10:05)
[2018-06-08] MEDS: QUETIAPINE FUMARATE 25 MG TABLET PO SCH ×2 (10:05→22:16)
[2018-06-08] MEDS: METOPROLOL TARTRATE 50 MG TABLET PO SCH ×2 (10:05→22:15)
[2018-06-08] MEDS: NORMAL SALINE 1000 ML 1,000 ML IV PRN (10:05)
[2018-06-08] MEDS: CHLORHEXIDINE GLUCONATE 0.12% ORAL RINSE 15 ML UDC PO SCH (10:06)
[2018-06-08] MEDS: BUSPIRONE HCL 10 MG TABLET PO SCH ×2 (10:06→22:15)
[2018-06-08] MEDS: FENTANYL 25 MCG/HR PATCH.TD72 TD SCH (10:06)
[2018-06-08] MEDS: ENOXAPARIN SODIUM INJ 40 MG/0.4 ML DISP.SYRIN SUBCUT SCH (10:07)
[2018-06-08] MEDS ORDERED: DOCUSATE SODIUM 100 MG CAPSULE PO SCH (18:00)
--- NOTE | 2018-06-08 20:25 | PDOC PROGRESS REPORT ---
Subjective Progress Note for:: 06/08/18 Subjective:: Patient was seen by the bedside Reason For Visit: ACUTE RESPIRATORY DISTRESS AND PNEUMOINA Physical Exam Vital Signs: Temp Pulse Resp BP Pulse Ox 99.2 F 100 34 H 151/73 H 89 L 06/08/18 15:48 06/08/18 19:14 06/08/18 19:14 06/08/18 15:48 06/08/18 19:14 Intake & Output 06/07/18 06/08/18 06/09/18 06:59 06:59 06:59 Intake Total 2810 2423 822 Output Total 2080 950 1400 Balance 730 1473 -578 Weight 66.7 kg 69.5 kg General appearance: PRESENT: no acute distress Neck exam: PRESENT: tracheostomy Respiratory exam: PRESENT: rhonchi Cardiovascular exam: PRESENT: +S1, +S2 Results Laboratory Results: 06/07/18 04:59 06/07/18 04:59 06/04/18 06/04/18 06/04/18 08:10 11:42 11:42 Creatine Kinase 54 CK-MB (CK-2) 0.85 Troponin I < 0.012 0.075 06/04/18 06/04/18 06/04/18 17:08 17:08 23:05 Creatine Kinase 85 83 CK-MB (CK-2) 0.86 Troponin I 0.053 06/04/18 23:05 Creatine Kinase CK-MB (CK-2) 0.52 Troponin I 0.023 Impressions: Chest/Abdomen CTA 06/04/18 00:00 IMPRESSION: 1. NORMAL CTA OF THE CHEST. NO PULMONARY EMBOLI. 2. SCATTERED ATELECTASIS. MORE FOCAL ATELECTASIS VERSUS PNEUMONIA IN THE RIGHT LUNG BASE. Chest X-Ray 06/06/18 06:00 IMPRESSION: Early or developing right basilar airspace disease compared to chest film 06/05/2018. Assessment & Plan - Diagnosis (1) Acute and chronic respiratory failure Qualifiers: Respiratory failure complication: hypercapnia Qualified Code(s): J96.22 - Acute and chronic respiratory failure with hypercapnia Is this a current diagnosis for this admission?: Yes (2) Pneumonia Qualifiers: Pneumonia type: aspiration pneumonia Aspiration pneumonia type: unspecified Laterality: unspecified laterality Lung location: unspecified part of lung Qualified Code(s): J69.0 - Pneumonitis due to inhalation of food and vomit Is this a current diagnosis for this admission?: Yes (3) Lobar pneumonia Is this a current diagnosis for this admission?: Yes (4) Pneumonia due to Pseudomonas aeruginosa Is this a current diagnosis for this admission?: Yes Plan: continue treatment
[2018-06-08] MEDS ORDERED: LORAZEPAM INJ 2 MG/1 ML VIAL IV ONE (20:45)
[2018-06-09] MEDS: PIPERACILLIN SODIUM/TAZOBACTAM 3.375 GM in NORMAL SALINE 100 ML IV SCH ×2 (00:40→05:54)
[2018-06-09] MEDS: IPRATROPIUM/ALBUTEROL 0.5-2.5 MG/3 ML AMPUL NEB SCH ×4 (02:05→20:09)
[2018-06-09] MEDS: NORMAL SALINE 1000 ML 1,000 ML IV PRN (05:54)
[2018-06-09] MEDS: ACETYLCYSTEINE 20% SOLN 800 MG/4 ML VIAL.NEB NEB SCH ×2 (09:05→20:08)
[2018-06-09] MEDS: INSULIN LISPRO 100 UNIT/ML 3 ML VIAL SUBCUT SCH ×3 (09:14→17:02)
[2018-06-09] MEDS ORDERED: DOCUSATE SODIUM 100 MG CAPSULE PO SCH (10:00)
[2018-06-09] MEDS ORDERED: TOBRAMYCIN SULFATE INJ 80 MG/2 ML VIAL NEB SCH (10:15)
[2018-06-09] MEDS: METOPROLOL TARTRATE 50 MG TABLET PO SCH (10:59)
[2018-06-09] MEDS: LANSOPRAZOLE 30 MG TAB.RAP.DR PO SCH (10:59)
[2018-06-09] MEDS: QUETIAPINE FUMARATE 25 MG TABLET PO SCH (11:00)
[2018-06-09] MEDS: MULTIVITAMIN TABLET PO SCH (11:00)
[2018-06-09] MEDS: ESCITALOPRAM OXALATE 10 MG TABLET PO SCH (11:00)
[2018-06-09] MEDS: BUSPIRONE HCL 10 MG TABLET PO SCH (11:00)
[2018-06-09] MEDS: CHLORHEXIDINE GLUCONATE 0.12% ORAL RINSE 15 ML UDC PO SCH (11:01)
[2018-06-09] MEDS: ENOXAPARIN SODIUM INJ 40 MG/0.4 ML DISP.SYRIN SUBCUT SCH (11:14)
[2018-06-09] MEDS ORDERED: ACETAMINOPHEN 325 MG TABLET GT PRN (11:27)
--- NOTE | 2018-06-09 11:28 | RADIOLOGY REPORT (SQ) ---
EXAM DESCRIPTION: CHEST SINGLE VIEW COMPLETED DATE/TIME: 06/09/2018 11:17 am REASON FOR STUDY: pna COMPARISON: 06/05/2018 EXAM PARAMETERS: NUMBER OF VIEWS: One view. TECHNIQUE: Single frontal radiographic view of the chest acquired. RADIATION DOSE: NA LIMITATIONS: Body habitus. AP portable. FINDINGS: LUNGS AND PLEURA: Chronic volume loss. Hazy increased density in the right lung. Left lo wer lobe airspace disease with silhouetting of the left diaphragm. MEDIASTINUM AND HILAR STRUCTURES: Chronic widening of the mediastinum. HEART AND VASCULAR STRUCTURES: Cardiomegaly. BONES: No acute findings. HARDWARE: None in the chest. OTHER: Tracheostomy. IMPRESSION: Pneumonia or asymmetric edema. Clinical correlation is needed. TECHNICAL DOCUMENTATION: JOB ID: [id number] [employer]- All Rights Reserved Reading location - IP/workstation name: [email or web address]
[2018-06-09] MEDS ORDERED: GUAIFENESIN SYRP 200 MG/10 ML UDC GT PRN (11:29)
[2018-06-09] MEDS ORDERED: OXYCODONE-ACETAMINOPHEN 5-325 MG TABLET GT PRN (11:30)
[2018-06-09] MEDS ORDERED: TOBRAMYCIN SULFATE NEB 40 MG/ML 30 ML NEB ONE (12:00)
[2018-06-09] MEDS ORDERED: ACETAMINOPHEN SOLN 325 MG/10.15 ML UDCUP GT PRN (12:36)
[2018-06-09 12:37] LABS: ARTERIAL BLOOD BASE EXCESS 1.7 mmol/L; ARTERIAL BLOOD H2CO3 0.99 mmol/L (1.05-1.35); ARTERIAL BLOOD HCO3 24.4 mmol/L (20-24); ARTERIAL BLOOD O2 SATURATION 98.4 % (94-98); ARTERIAL BLOOD PCO2 32.9 mmHg (35-45); ARTERIAL BLOOD PH 7.49 (7.35-7.45); ARTERIAL BLOOD PO2 110.4 mmHg (80-100); ARTERIAL BLOOD TOTAL CO2 25.4 mmol/L (21-25)
[2018-06-09 12:40] LABS: ARTERIAL BLOOD FIO2 50%
[2018-06-09] MEDS ORDERED: DEXTROSE 40% GEL 15 GM TUBE GT PRN ×2 (13:00)
[2018-06-09] MEDS: CEFTAZIDIME PENTAHYDRATE 1 GM in DEXTROSE 5%-WATER 50 ML IV SCH ×2 (15:38→22:08)
[2018-06-09] MEDS: TOBRAMYCIN SULFATE NEB 40 MG/ML 30 ML NEB SCH (20:07)
--- NOTE | 2018-06-09 22:01 | PDOC PROGRESS REPORT ---
Subjective Progress Note for:: 06/09/18 Subjective:: Patient is very anxious manifesting symptoms of anxiety despite being on BuSpar Reason For Visit: ACUTE RESPIRATORY DISTRESS AND PNEUMOINA Physical Exam Vital Signs: Temp Pulse Resp BP Pulse Ox 99.9 F 66 18 165/67 H 97 06/09/18 19:46 06/09/18 20:09 06/09/18 20:09 06/09/18 19:46 06/09/18 20:09 Intake & Output 06/08/18 06/09/18 06/10/18 06:59 06:59 06:59 Intake Total 2423 2463 259 Output Total 950 3000 900 Balance 5128 -151 -349 Weight 69.5 kg 67.1 kg General appearance: PRESENT: no acute distress Eye exam: PRESENT: PERRLA Neck exam: PRESENT: tracheostomy Respiratory exam: PRESENT: rhonchi Cardiovascular exam: PRESENT: +S1, systolic murmur GI/Abdominal exam: PRESENT: soft Neurological exam: PRESENT: alert Results Laboratory Results: 06/07/18 04:59 06/07/18 04:59 06/09/18 12:00 Carbonic Acid 0.99 L HCO3/H2CO3 Ratio 24:1 ABG pH 7.49 H ABG pCO2 32.9 L ABG pO2 110.4 H ABG HCO3 24.4 H ABG O2 Saturation 98.4 H ABG Base Excess 1.7 FiO2 50% 06/04/18 17:08 Blood Blood Culture - Final NO GROWTH IN 5 DAYS 06/04/18 08:10 Blood Blood Culture - Final NO GROWTH IN 5 DAYS 06/04/18 06/04/18 06/04/18 08:10 11:42 11:42 Creatine Kinase 54 CK-MB (CK-2) 0.85 Troponin I < 0.012 0.075 06/04/18 06/04/18 06/04/18 17:08 17:08 23:05 Creatine Kinase 85 83 CK-MB (CK-2) 0.86 Troponin I 0.053 06/04/18 23:05 Creatine Kinase CK-MB (CK-2) 0.52 Troponin I 0.023 Impressions: Chest/Abdomen CTA 06/04/18 00:00 IMPRESSION: 1. NORMAL CTA OF THE CHEST. NO PULMONARY EMBOLI. 2. SCATTERED ATELECTASIS. MORE FOCAL ATELECTASIS VERSUS PNEUMONIA IN THE RIGHT LUNG BASE. Chest X-Ray 06/09/18 00:00 IMPRESSION: Pneumonia or asymmetric edema. Clinical correlation is needed. Assessment & Plan - Diagnosis (1) Acute and chronic respiratory failure Qualifiers: Respiratory failure complication: hypercapnia Qualified Code(s): J96.22 - Acute and chronic respiratory failure with hypercapnia Is this a current diagnosis for this admission?: Yes (2) Pneumonia Qualifiers: Pneumonia type: aspiration pneumonia Aspiration pneumonia type: unspecified Laterality: unspecified laterality Lung location: unspecified part of lung Qualified Code(s): J69.0 - Pneumonitis due to inhalation of food and vomit Is this a current diagnosis for this admission?: Yes (3) Lobar pneumonia Is this a current diagnosis for this admission?: Yes (4) Pneumonia due to Pseudomonas aeruginosa Is this a current diagnosis for this admission?: Yes (5) Anxiety Is this a current diagnosis for this admission?: Yes Plan: Start Klonopin 0.5 mg 1 tablet p.o. twice daily
[2018-06-09] MEDS: QUETIAPINE FUMARATE 25 MG TABLET GT SCH (22:09)
[2018-06-09] MEDS: BUSPIRONE HCL 10 MG TABLET GT SCH (22:09)
[2018-06-09] MEDS: CLONAZEPAM 1 MG TABLET GT SCH (22:10)
[2018-06-09] MEDS: METOPROLOL TARTRATE 50 MG TABLET GT SCH (22:10)
[2018-06-09] MEDS ORDERED: FUROSEMIDE INJ/PF 40 MG/4 ML SDV IV ONE (22:10)
[2018-06-10] MEDS: IPRATROPIUM/ALBUTEROL 0.5-2.5 MG/3 ML AMPUL NEB SCH ×4 (02:10→20:23)
[2018-06-10] MEDS: NORMAL SALINE 1000 ML 1,000 ML IV PRN ×2 (02:30→21:16)
[2018-06-10] MEDS: CEFTAZIDIME PENTAHYDRATE 1 GM in DEXTROSE 5%-WATER 50 ML IV SCH ×3 (06:16→21:17)
[2018-06-10] MEDS: ACETYLCYSTEINE 20% SOLN 800 MG/4 ML VIAL.NEB NEB SCH ×2 (08:16→20:23)
[2018-06-10] MEDS: TOBRAMYCIN SULFATE NEB 40 MG/ML 30 ML NEB SCH ×2 (08:16→20:23)
[2018-06-10] MEDS: INSULIN LISPRO 100 UNIT/ML 3 ML VIAL SUBCUT SCH ×5 (08:36→21:47)
[2018-06-10] MEDS: LANSOPRAZOLE 30 MG TAB.RAP.DR GT SCH (08:41)
[2018-06-10] MEDS: QUETIAPINE FUMARATE 25 MG TABLET GT SCH ×2 (10:18→21:26)
[2018-06-10] MEDS: BUSPIRONE HCL 10 MG TABLET GT SCH ×2 (10:19→21:26)
[2018-06-10] MEDS: CLONAZEPAM 1 MG TABLET GT SCH ×2 (10:19→21:26)
[2018-06-10] MEDS: ESCITALOPRAM OXALATE 10 MG TABLET GT SCH (10:19)
[2018-06-10] MEDS: METOPROLOL TARTRATE 50 MG TABLET GT SCH ×2 (10:20→21:26)
[2018-06-10] MEDS: MULTIVITAMIN ORAL LIQUID 60 ML GT SCH (10:20)
[2018-06-10] MEDS: CHLORHEXIDINE GLUCONATE 0.12% ORAL RINSE 15 ML UDC PO SCH (10:20)
[2018-06-10] MEDS: DOCUSATE SODIUM 100 MG/10 ML UDC GT SCH (10:20)
[2018-06-10] MEDS: ENOXAPARIN SODIUM INJ 40 MG/0.4 ML DISP.SYRIN SUBCUT SCH (10:21)
--- NOTE | 2018-06-10 21:49 | PDOC PROGRESS REPORT ---
Subjective Progress Note for:: 06/10/18 Subjective:: Patient seen by the bedside ready for discharge,hopefully in the morning Reason For Visit: ACUTE RESPIRATORY DISTRESS AND PNEUMOINA Physical Exam Vital Signs: Temp Pulse Resp BP Pulse Ox 100.3 F 82 16 135/82 H 97 06/10/18 19:49 06/10/18 19:49 06/10/18 19:49 06/10/18 19:49 06/10/18 19:49 Intake & Output 06/09/18 06/10/18 06/11/18 06:59 06:59 06:59 Intake Total 2463 1932 1311 Output Total 3000 2900 625 Balance -537 -968 686 Weight 67.1 kg 66.7 kg General appearance: PRESENT: no acute distress Eye exam: PRESENT: PERRLA Respiratory exam: PRESENT: clear to auscultation ryley Cardiovascular exam: PRESENT: +S1, +S2 GI/Abdominal exam: PRESENT: soft Neurological exam: PRESENT: alert Results Laboratory Results: 06/07/18 04:59 06/07/18 04:59 06/04/18 17:08 Blood Blood Culture - Final NO GROWTH IN 5 DAYS 06/04/18 06/04/18 06/04/18 08:10 11:42 11:42 Creatine Kinase 54 CK-MB (CK-2) 0.85 Troponin I < 0.012 0.075 06/04/18 06/04/18 06/04/18 17:08 17:08 23:05 Creatine Kinase 85 83 CK-MB (CK-2) 0.86 Troponin I 0.053 06/04/18 23:05 Creatine Kinase CK-MB (CK-2) 0.52 Troponin I 0.023 Impressions: Chest/Abdomen CTA 06/04/18 00:00 IMPRESSION: 1. NORMAL CTA OF THE CHEST. NO PULMONARY EMBOLI. 2. SCATTERED ATELECTASIS. MORE FOCAL ATELECTASIS VERSUS PNEUMONIA IN THE RIGHT LUNG BASE. Chest X-Ray 06/09/18 00:00 IMPRESSION: Pneumonia or asymmetric edema. Clinical correlation is needed. Assessment & Plan - Diagnosis (1) Acute and chronic respiratory failure Qualifiers: Respiratory failure complication: hypercapnia Qualified Code(s): J96.22 - Acute and chronic respiratory failure with hypercapnia Is this a current diagnosis for this admission?: Yes (2) Pneumonia Qualifiers: Pneumonia type: aspiration pneumonia Aspiration pneumonia type: unspecified Laterality: unspecified laterality Lung location: unspecified part of lung Qualified Code(s): J69.0 - Pneumonitis due to inhalation of food and vomit Is this a current diagnosis for this admission?: Yes (3) Lobar pneumonia Is this a current diagnosis for this admission?: Yes (4) Pneumonia due to Pseudomonas aeruginosa Is this a current diagnosis for this admission?: Yes (5) Anxiety Is this a current diagnosis for this admission?: Yes
[2018-06-10 22:14] LABS: ABSOLUTE EOSINOPHILS # (AUTO) 0.5 10^3/uL (0.0-0.6); ABSOLUTE LYMPHOCYTES (AUTO) 1.2 10^3/uL (0.5-4.7); ABSOLUTE MONOCYTES (AUTO) 0.6 10^3/uL (0.1-1.4); ABSOLUTE NEUT (AUTO) 7.8 10^3/uL (1.7-8.2); BASOPHILS % (AUTO) 0.4 % (0-2); HEMATOCRIT 24.4 % (36.0-47.0); HEMOGLOBIN 8.1 g/dL (12.0-15.5); LYMPHOCYTES % (AUTO) 11.6 % (13-45); MEAN CORPUSCULAR HEMOGLOBIN 23.6 pg (27.0-33.4); MEAN CORPUSCULAR HGB CONC 33.2 g/dL (32.0-36.0); MEAN CORPUSCULAR VOLUME 71 fl (80-97); MONOCYTES % (AUTO) 6.4 % (3-13); PLATELET COUNT 243 10^3/uL (150-450); RED BLOOD COUNT 3.42 10^6/uL (3.72-5.28); RED CELL DISTRIBUTION WIDTH 18.8 % (11.5-14.0); SEGMENTED NEUTROPHILS % (AUTO) 76.6 % (42-78); TOTAL CELLS COUNTED % (AUTO) 100 %; WHITE BLOOD COUNT 10.1 10^3/uL (4.0-10.5)
[2018-06-10 22:44] LABS: ALANINE AMINOTRANSFERASE 13 U/L (9-52); ALBUMIN 3.4 g/dL (3.5-5.0); ALKALINE PHOSPHATASE 102 U/L (38-126); ANION GAP 11 (5-19); ASPARTATE AMINO TRANSFERASE 15 U/L (14-36); BILIRUBIN,DIRECT 0.2 mg/dL (0.0-0.4); BILIRUBIN,TOTAL 0.3 mg/dL (0.2-1.3); BLOOD UREA NITROGEN 12 mg/dL (7-20); CALCIUM 9.2 mg/dL (8.4-10.2); CARBON DIOXIDE 24 mmol/L (22-30); CHLORIDE 104 mmol/L (98-107); GLUCOSE 116 mg/dL (75-110); POTASSIUM 3.1 mmol/L (3.6-5.0); SODIUM 138.6 mmol/L (137-145); TOTAL PROTEIN 6.1 g/dL (6.3-8.2)
[2018-06-11] MEDS: IPRATROPIUM/ALBUTEROL 0.5-2.5 MG/3 ML AMPUL NEB SCH ×2 (01:56→08:11)
[2018-06-11] MEDS: CEFTAZIDIME PENTAHYDRATE 1 GM in DEXTROSE 5%-WATER 50 ML IV SCH (05:34)
[2018-06-11 06:26] LABS: ABSOLUTE EOSINOPHILS # (AUTO) 0.6 10^3/uL (0.0-0.6); ABSOLUTE LYMPHOCYTES (AUTO) 1.3 10^3/uL (0.5-4.7); ABSOLUTE MONOCYTES (AUTO) 0.7 10^3/uL (0.1-1.4); ABSOLUTE NEUT (AUTO) 5.7 10^3/uL (1.7-8.2); BASOPHILS % (AUTO) 0.6 % (0-2); EOSINOPHILS % (AUTO) 6.6 % (0-6); HEMATOCRIT 26.3 % (36.0-47.0); HEMOGLOBIN 8.6 g/dL (12.0-15.5); LYMPHOCYTES % (AUTO) 15.1 % (13-45); MEAN CORPUSCULAR HEMOGLOBIN 23.4 pg (27.0-33.4); MEAN CORPUSCULAR HGB CONC 32.8 g/dL (32.0-36.0); MEAN CORPUSCULAR VOLUME 71 fl (80-97); PLATELET COUNT 249 10^3/uL (150-450); RED BLOOD COUNT 3.69 10^6/uL (3.72-5.28); RED CELL DISTRIBUTION WIDTH 18.7 % (11.5-14.0); SEGMENTED NEUTROPHILS % (AUTO) 68.7 % (42-78); TOTAL CELLS COUNTED % (AUTO) 100 %; WHITE BLOOD COUNT 8.3 10^3/uL (4.0-10.5)
[2018-06-11 06:55] LABS: ALANINE AMINOTRANSFERASE 28 U/L (9-52); ALBUMIN 3.6 g/dL (3.5-5.0); ALKALINE PHOSPHATASE 102 U/L (38-126); ANION GAP 11 (5-19); ASPARTATE AMINO TRANSFERASE 14 U/L (14-36); BILIRUBIN,DIRECT 0.1 mg/dL (0.0-0.4); BILIRUBIN,TOTAL 0.3 mg/dL (0.2-1.3); BLOOD UREA NITROGEN 12 mg/dL (7-20); CALCIUM 9.3 mg/dL (8.4-10.2); CARBON DIOXIDE 24 mmol/L (22-30); CHLORIDE 105 mmol/L (98-107); GLUCOSE 106 mg/dL (75-110); POTASSIUM 3.7 mmol/L (3.6-5.0); SODIUM 139.7 mmol/L (137-145); TOTAL PROTEIN 6.5 g/dL (6.3-8.2)
[2018-06-11] MEDS: ACETYLCYSTEINE 20% SOLN 800 MG/4 ML VIAL.NEB NEB SCH (08:10)
[2018-06-11] MEDS: TOBRAMYCIN SULFATE NEB 40 MG/ML 30 ML NEB SCH (08:10)
[2018-06-11] MEDS: INSULIN LISPRO 100 UNIT/ML 3 ML VIAL SUBCUT SCH ×2 (10:51→12:48)
[2018-06-11] MEDS: ESCITALOPRAM OXALATE 10 MG TABLET GT SCH (10:57)
[2018-06-11] MEDS: BUSPIRONE HCL 10 MG TABLET GT SCH (10:57)
[2018-06-11] MEDS: METOPROLOL TARTRATE 50 MG TABLET GT SCH (10:57)
[2018-06-11] MEDS: LANSOPRAZOLE 30 MG TAB.RAP.DR GT SCH (10:57)
[2018-06-11] MEDS: CLONAZEPAM 1 MG TABLET GT SCH (10:58)
[2018-06-11] MEDS: FENTANYL 25 MCG/HR PATCH.TD72 TD SCH (10:58)
[2018-06-11] MEDS: CHLORHEXIDINE GLUCONATE 0.12% ORAL RINSE 15 ML UDC PO SCH (10:58)
[2018-06-11] MEDS: QUETIAPINE FUMARATE 25 MG TABLET GT SCH (10:58)
[2018-06-11] MEDS: ENOXAPARIN SODIUM INJ 40 MG/0.4 ML DISP.SYRIN SUBCUT SCH (10:59)
[2018-06-11] MEDS: MULTIVITAMIN ORAL LIQUID 60 ML GT SCH (10:59)
[2018-06-11] MEDS: DOCUSATE SODIUM 100 MG/10 ML UDC GT SCH (11:00)
[2018-06-11 11:47] VITALS: BP 155/84
--- NOTE | 2018-06-11 12:55 | PDOC TRANSFER SUMMARY ---
General Admission Date/PCP: 06/04/18 10:03 KIMI CANELA MD Admission Date: 06/04/18 Transfer Date: 06/11/18 Resuscitation Status: Full Code - Transfer Diagnosis (1) Pneumonia due to Pseudomonas aeruginosa Is this a current diagnosis for this admission?: Yes (2) Acute and chronic respiratory failure Is this a current diagnosis for this admission?: Yes (3) Pneumonia Is this a current diagnosis for this admission?: Yes (4) Lobar pneumonia Is this a current diagnosis for this admission?: Yes (5) Anxiety Is this a current diagnosis for this admission?: Yes - Transfer Medications Home Medications: Acetaminophen [Tylenol 325 mg Tablet] 325 mg PO Q4HP PRN 06/04/18 Chlorhexidine Gluconate [Peridex] 15 ml PO DAILY 06/04/18 Clonazepam [Klonopin 2 mg Tablet] 2 mg PO TIDP PRN 06/04/18 Enoxaparin Sodium [Lovenox Inj 40 mg/0.4 ml Disp.syrin] 40 mg SUBCUT DAILY 06/04/18 Escitalopram Oxalate [Lexapro] 20 mg PO DAILY 06/04/18 Fentanyl [Duragesic 25 Mcg/Hr Transdermal Patch] 1 each TD Q3D 06/04/18 Glucagon,Human Recombinant [Glucagon Emergency Kit] 1 mg IJ PRN PRN 06/04/18 Guaifenesin 400 mg PO PRN PRN 06/04/18 Insulin Lispro [Humalog] 0 unit SQ .SLIDING SCALE 06/04/18 Ipratropium/Albuterol Sulfate [Duoneb 3 ml Ampul] 3 ml NEB RTQ6 06/04/18 Loperamide HCl [Imodium A-D] 2 mg PO Q6HP PRN 06/04/18 Metoprolol Tartrate [Lopressor 50 mg Tablet] 50 mg PO Q12H 06/04/18 Multivitamin [Multiple Vitamins] 1 each PO DAILY 06/04/18 Omeprazole 40 mg PO DAILY 06/04/18 Quetiapine Fumarate [Seroquel 25 mg Tablet] 25 mg PO BID 06/04/18 Transfer Medications: Current Medications Acetaminophen (Tylenol Soln 325 Mg/10.15 Ml Udcup) 650 mg GT Q4HP PRN PRN Reason: FOR PAIN OR TEMP Stop: 07/09/18 12:35 Last Admin: 06/09/18 15:41 Dose: 650 mg Documented by: Acetylcysteine (Mucomist 20% Soln 800 Mg/4 Ml) 600 mg NEB RTBID MANUELA Stop: 07/05/18 12:29 Last Admin: 06/11/18 08:10 Dose: 600 mg Documented by: Albuterol/Ipratropium (Duoneb 3 Ml Ampul) 3 ml NEB RTQ6 MANUELA Stop: 07/04/18 19:59 Last Admin: 06/11/18 08:11 Dose: 3 ml Documented by: Buspirone HCl (Buspar 10 Mg Tablet) 20 mg GT Q12 MANUELA Stop: 07/09/18 21:59 Last Admin: 06/11/18 10:57 Dose: 20 mg Documented by: Chlorhexidine Gluconate (Periogard 0.12% Oral Rinse 15 Ml) 15 ml PO DAILY [facility] Stop: 07/05/18 09:59 Last Admin: 06/11/18 10:58 Dose: 15 ml Documented by: Clonazepam (Klonopin 1 Mg Tablet) 0.5 mg GT Q12 MANUELA Stop: 06/16/18 21:59 Last Admin: 06/11/18 10:58 Dose: 0.5 mg Documented by: Dextrose (Dextrose Inj 50% Syringe (25 Gm/50 Ml)) 12.5 gm IV PRN PRN; Protocol PRN Reason: FOR BG 50-69 IN ALERT PATIENT Stop: 07/04/18 15:15 Dextrose (Dextrose Inj 50% Syringe (25 Gm/50 Ml)) 25 gm IV PRN PRN; Protocol PRN Reason: PER PROTOCOL Stop: 07/04/18 15:15 Docusate Sodium (Colace Udc 100 Mg/10 Ml Oral Soln) 100 mg GT DAILY [facility] Stop: 07/10/18 09:59 Last Admin: 06/11/18 11:00 Dose: 100 mg Documented by: Enoxaparin Sodium (Lovenox Inj 40 Mg/0.4 Ml Disp.Syrin) 40 mg SUBCUT DAILY [facility] Stop: 07/04/18 11:59 Last Admin: 06/11/18 10:59 Dose: 40 mg Documented by: Escitalopram Oxalate (Lexapro 10 Mg Tablet) 20 mg GT DAILY [facility] Stop: 07/10/18 09:59 Last Admin: 06/11/18 10:57 Dose: 20 mg Documented by: Fentanyl (Duragesic 25 Mcg/Hr Transdermal Patch) 1 each TD Q3D@1000 [facility] Stop: 06/12/18 09:59 Last Admin: 06/11/18 10:58 Dose: 1 each Documented by: Glucagon (Glucagen Inj 1 Mg Vial) 1 mg IM PRN PRN; Protocol PRN Reason: Evaluate for BG < 70 Stop: 07/04/18 15:15 Glucose (Glutose 40% Gel 15 Gm Tube) 15 gm GT PRN PRN; Protocol PRN Reason: FOR BG 50-69 IN ALERT PATIENT Stop: 07/04/18 15:15 Glucose (Glutose 40% Gel 15 Gm Tube) 30 gm GT PRN PRN; Protocol PRN Reason: FOR BG < 50 IN ALERT PATIENT Stop: 07/04/18 15:15 Guaifenesin (Robitussin Syrup 200 Mg/10 Ml Ud Cup) 200 mg GT Q4HP PRN PRN Reason: COUGH Stop: 07/09/18 11:28 Sodium Chloride (Nacl 0.9% 1000 Ml Iv Soln) 1,000 mls @ 50 mls/hr IV CONTINUOUS PRN PRN Reason: THIS MED IS NOT "PRN" Stop: 07/04/18 10:45 Last Admin: 06/10/18 21:16 Dose: 50 mls/hr Documented by: Ceftazidime 1 gm/ Dextrose 50 mls @ 100 mls/hr IV Q8 [facility] Stop: 06/16/18 13:59 Last Infusion: 06/11/18 06:10 Dose: Infused Documented by: Insulin Human Lispro (Humalog Insulin 100 Unit/1 Ml 3 Ml Vial) 0 - 12 unit SUBCUT [facility]; Protocol Stop: 07/04/18 15:59 Last Admin: 06/11/18 10:51 Dose: Not Given Documented by: Lansoprazole (Prevacid 30 Mg Odt Tablet) 30 mg GT QAM [facility] Stop: 07/10/18 07:59 Last Admin: 06/11/18 10:57 Dose: 30 mg Documented by: Metoprolol Tartrate (Lopressor 50 Mg Tablet) 50 mg GT Q12 [facility] Stop: 07/09/18 21:59 Last Admin: 06/11/18 10:57 Dose: 50 mg Documented by: Multivitamins (Multiple Vitamin Liquid 60 Ml) 5 ml GT DAILY [facility] Stop: 07/10/18 09:59 Last Admin: 06/11/18 10:59 Dose: 5 ml Documented by: Oxycodone/Acetaminophen (Percocet 5-325 Mg Tablet) 1 tab GT Q4HP PRN PRN Reason: FOR PAIN Stop: 06/16/18 11:29 Quetiapine Fumarate (Seroquel 25 Mg Tablet) 25 mg GT Q12 MANUELA Stop: 07/09/18 21:59 Last Admin: 06/11/18 10:58 Dose: 25 mg Documented by: Sodium Chloride (Saline Flush 2.5 Ml Monoject Prefil Syrin) 2.5 ml IV Q8 MANUELA Stop: 07/04/18 13:59 Last Admin: 06/11/18 05:34 Dose: 2.5 ml Documented by: Tobramycin Sulfate (Tobramycin Neb 40 Mg/Ml 30 Ml Vial) 300 mg NEB RTQ12 MANUELA Stop: 06/16/18 19:59 Last Admin: 06/11/18 08:10 Dose: 300 mg Documented by: - Allergies Allergies/Adverse Reactions: No Known Allergies Allergy (Verified 10/25/14 09:26) Hospital Course Hospital Course: Patient is vent dependent she was admitted on June 04, 2018 after prolonged hospitalization [facility]-term [facility], she presented with acute respiratory failure felt to be due to pneumonia, the tracheal aspirate culture grew Pseudomonas, she was treated with IV antibiotic. .she required vent support throughout hospital stay., The intent was to discharge home today, she is vent dependent.the patient is requesting to be transfer to life care in [place] because she said [place] we will make her talk again, she is essentially not weanable, she developed tachycardia with distress on pressure support, it will be challenging for her to phonate with tracheostomy attached to the ventilator Physical Exam Vital Signs: Temp Pulse Resp BP Pulse Ox 98.0 F 92 18 155/84 H 98 06/11/18 11:32 06/11/18 11:32 06/11/18 11:32 06/11/18 11:32 06/11/18 12:00 Intake & Output 06/10/18 06/11/18 06/12/18 06:59 06:59 07:59 Intake Total 7872 1736 Output Total 2900 1025 Balance -968 711 Weight 66.7 kg 66.5 kg General appearance: PRESENT: no acute distress Eye exam: PRESENT: PERRLA Respiratory exam: PRESENT: clear to auscultation ryley Cardiovascular exam: PRESENT: +S1, +S2 GI/Abdominal exam: PRESENT: soft Neurological exam: PRESENT: alert Results Laboratory Results: 06/11/18 05:32 06/11/18 05:32 06/10/18 06/10/18 06/11/18 22:00 22:00 05:32 WBC 10.1 8.3 RBC 3.42 L 3.69 L Hgb 8.1 L 8.6 L Hct 24.4 L 26.3 L MCV 71 L 71 L MCH 23.6 L 23.4 L MCHC 33.2 32.8 RDW 18.8 H 18.7 H Plt Count 243 249 Seg Neutrophils % 76.6 68.7 Lymphocytes % 11.6 L 15.1 Monocytes % 6.4 9.0 Eosinophils % 5.0 6.6 H Basophils % 0.4 0.6 Absolute Neutrophils 7.8 5.7 Absolute Lymphocytes 1.2 1.3 Absolute Monocytes 0.6 0.7 Absolute Eosinophils 0.5 0.6 Absolute Basophils 0.0 0.0 Sodium 138.6 Potassium 3.1 L Chloride 104 Carbon Dioxide 24 Anion Gap 11 BUN 12 Creatinine 0.41 L Est GFR ( Amer) > 60 Est GFR (Non-Af Amer) > 60 Glucose 116 H Calcium 9.2 Total Bilirubin 0.3 AST 15 ALT 13 Alkaline Phosphatase 102 Total Protein 6.1 L Albumin 3.4 L 06/11/18 05:32 WBC RBC Hgb Hct MCV MCH MCHC RDW Plt Count Seg Neutrophils % Lymphocytes % Monocytes % Eosinophils % Basophils % Absolute Neutrophils Absolute Lymphocytes Absolute Monocytes Absolute Eosinophils Absolute Basophils Sodium 139.7 Potassium 3.7 Chloride 105 Carbon Dioxide 24 Anion Gap 11 BUN 12 Creatinine 0.42 L Est GFR ( Amer) > 60 Est GFR (Non-Af Amer) > 60 Glucose 106 Calcium 9.3 Total Bilirubin 0.3 AST 14 ALT 28 Alkaline Phosphatase 102 Total Protein 6.5 Albumin 3.6 06/04/18 06/04/18 06/04/18 08:10 11:42 11:42 Creatine Kinase 54 CK-MB (CK-2) 0.85 Troponin I < 0.012 0.075 06/04/18 06/04/18 06/04/18 17:08 17:08 23:05 Creatine Kinase 85 83 CK-MB (CK-2) 0.86 Troponin I 0.053 06/04/18 23:05 Creatine Kinase CK-MB (CK-2) 0.52 Troponin I 0.023 Impressions: Chest/Abdomen CTA 06/04/18 00:00 IMPRESSION: 1. NORMAL CTA OF THE CHEST. NO PULMONARY EMBOLI. 2. SCATTERED ATELECTASIS. MORE FOCAL ATELECTASIS VERSUS PNEUMONIA IN THE RIGHT LUNG BASE. Chest X-Ray 06/09/18 00:00 IMPRESSION: Pneumonia or asymmetric edema. Clinical correlation is needed.
--- NOTE | 2018-06-14 15:21 | PDOC PROGRESS REPORT ---
Subjective Progress Note for:: 06/05/18 Subjective:: On mechanical ventilation via tracheostomy Reason For Visit: ACUTE RESPIRATORY DISTRESS AND PNEUMOINA Physical Exam Vital Signs: Temp Pulse Resp BP Pulse Ox 99.9 F 79 22 H 127/110 H 94 06/05/18 11:10 06/05/18 10:00 06/05/18 11:10 06/05/18 11:10 06/05/18 11:10 Intake & Output 06/04/18 06/05/18 06/06/18 06:59 06:59 06:59 Intake Total 2700 Output Total 810 165 Balance 1890 -165 Weight 66.2 kg General appearance: PRESENT: no acute distress, disheveled Head exam: PRESENT: atraumatic, normocephalic Eye exam: PRESENT: conjunctiva pale, EOMI. ABSENT: nystagmus, periorbital swelling Mouth exam: PRESENT: dry mucosa, neck supple, tongue midline Neck exam: PRESENT: tracheostomy. ABSENT: carotid bruit, JVD, lymphadenopathy, meningismus, tenderness, thyromegaly, tracheal deviation Respiratory exam: PRESENT: decreased breath sounds, prolonged expiratory phas, rales, rhonchi, unlabored, wheezes. ABSENT: retraction, stridor Cardiovascular exam: PRESENT: RRR, +S1, +S2, tachycardia Pulses: PRESENT: normal radial pulses GI/Abdominal exam: PRESENT: soft. ABSENT: tenderness Gentrourinary exam: PRESENT: indwelling catheter Extremities exam: ABSENT: calf tenderness, clubbing, pedal edema Musculoskeletal exam: ABSENT: ambulatory, deformity, dislocation Neurological exam: PRESENT: altered, awake Psychiatric exam: PRESENT: flat affect Skin exam: PRESENT: dry, warm Results Laboratory Results: 06/05/18 04:26 06/05/18 04:26 06/04/18 06/04/18 06/05/18 08:10 15:30 04:26 WBC 5.7 RBC 3.39 L Hgb 8.1 L Hct 24.2 L MCV 71 L MCH 23.9 L MCHC 33.5 RDW 19.0 H Plt Count 280 Seg Neutrophils % 63.6 Lymphocytes % 20.9 Monocytes % 9.8 Eosinophils % 4.9 Basophils % 0.8 Absolute Neutrophils 3.6 Absolute Lymphocytes 1.2 Absolute Monocytes 0.6 Absolute Eosinophils 0.3 Absolute Basophils 0.0 Carbonic Acid 0.76 L HCO3/H2CO3 Ratio 27:1 ABG pH 7.54 H ABG pCO2 25.1 L ABG pO2 104.6 H ABG HCO3 21.2 ABG O2 Saturation 98.4 H ABG Base Excess -0.5 FiO2 35% Sodium Potassium Chloride Carbon Dioxide Anion Gap BUN Creatinine Est GFR ( Amer) Est GFR (Non-Af Amer) Glucose Lactic Acid 0.7 Calcium Magnesium Total Bilirubin AST ALT Alkaline Phosphatase Total Protein Albumin 06/05/18 06/05/18 04:26 04:56 WBC RBC Hgb Hct MCV MCH MCHC RDW Plt Count Seg Neutrophils % Lymphocytes % Monocytes % Eosinophils % Basophils % Absolute Neutrophils Absolute Lymphocytes Absolute Monocytes Absolute Eosinophils Absolute Basophils Carbonic Acid 0.88 L HCO3/H2CO3 Ratio 22:1 ABG pH 7.45 ABG pCO2 29.4 L ABG pO2 101.3 H ABG HCO3 20.0 ABG O2 Saturation 98.0 ABG Base Excess -3.3 FiO2 35% Sodium 141.7 Potassium 3.4 L D Chloride 114 H Carbon Dioxide 20 L Anion Gap 8 BUN 11 Creatinine 0.50 L Est GFR ( Amer) > 60 Est GFR (Non-Af Amer) > 60 Glucose 86 Lactic Acid Calcium 9.1 Magnesium 1.9 Total Bilirubin 0.3 AST 16 ALT 26 Alkaline Phosphatase 99 Total Protein 5.8 L Albumin 3.0 L 06/04/18 06/04/18 06/04/18 08:10 11:42 11:42 Creatine Kinase 54 CK-MB (CK-2) 0.85 Troponin I < 0.012 0.075 06/04/18 06/04/18 06/04/18 17:08 17:08 23:05 Creatine Kinase 85 83 CK-MB (CK-2) 0.86 Troponin I 0.053 06/04/18 23:05 Creatine Kinase CK-MB (CK-2) 0.52 Troponin I 0.023 Impressions: Chest/Abdomen CTA 06/04/18 00:00 IMPRESSION: 1. NORMAL CTA OF THE CHEST. NO PULMONARY EMBOLI. 2. SCATTERED ATELECTASIS. MORE FOCAL ATELECTASIS VERSUS PNEUMONIA IN THE RIGHT LUNG BASE. Chest X-Ray 06/05/18 06:00 IMPRESSION: No significant change. Assessment & Plan - Diagnosis (1) Acute and chronic respiratory failure Qualifiers: Respiratory failure complication: hypercapnia Qualified Code(s): J96.22 - Acute and chronic respiratory failure with hypercapnia Is this a current diagnosis for this admission?: Yes Plan: Chronically trached now aspirated into the right lung (2) Right lower lobe pneumonia Qualifiers: Pneumonia type: due to unspecified organism Qualified Code(s): J18.1 - Lobar pneumonia, unspecified organism Is this a current diagnosis for this admission?: Yes Plan: No positive cultures thus far (3) Chronic obstructive pulmonary disease Qualifiers: COPD type: unspecified COPD Qualified Code(s): J44.9 - Chronic obstructive pulmonary disease, unspecified Is this a current diagnosis for this admission?: Yes Plan: Xopenex (4) Scoliosis (and kyphoscoliosis), idiopathic Is this a current diagnosis for this admission?: Yes Plan: Musculoskeletal abnormalities contribute to her poor ventilation as well as her inability to clear secretion - Time Total Critical Time (Minutes): 45
--- NOTE | 2018-06-14 15:23 | PDOC PROGRESS REPORT ---
Subjective Progress Note for:: 06/09/18 Subjective:: On mechanical ventilation via tracheostomy Reason For Visit: ACUTE RESPIRATORY DISTRESS AND PNEUMOINA Physical Exam Vital Signs: Temp Pulse Resp BP Pulse Ox 98.9 F 80 30 H 162/85 H 90 L 06/09/18 07:23 06/09/18 09:04 06/09/18 09:04 06/09/18 07:23 06/09/18 09:04 Intake & Output 06/08/18 06/09/18 06/10/18 06:59 06:59 06:59 Intake Total 2423 2463 Output Total 950 3000 Balance 1473 -537 Weight 69.5 kg 67.1 kg General appearance: PRESENT: no acute distress, disheveled Head exam: PRESENT: atraumatic, normocephalic Eye exam: PRESENT: conjunctiva pale. ABSENT: nystagmus, periorbital swelling Mouth exam: PRESENT: dry mucosa, neck supple, tongue midline Neck exam: PRESENT: tracheostomy. ABSENT: carotid bruit, full ROM, JVD, lymphadenopathy, meningismus, tenderness, thyromegaly, tracheal deviation Respiratory exam: PRESENT: decreased breath sounds, prolonged expiratory phas, r ales, rhonchi, tachypnea, unlabored. ABSENT: retraction, stridor Cardiovascular exam: PRESENT: RRR, +S1, +S2 Pulses: PRESENT: normal radial pulses GI/Abdominal exam: PRESENT: soft. ABSENT: tenderness Gentrourinary exam: PRESENT: indwelling catheter Extremities exam: ABSENT: calf tenderness, clubbing, full ROM, joint swelling, pedal edema Musculoskeletal exam: ABSENT: ambulatory, deformity, dislocation, full ROM, normal inspection Neurological exam: PRESENT: altered Psychiatric exam: PRESENT: flat affect Skin exam: PRESENT: dry, warm Results Laboratory Results: 06/07/18 04:59 06/07/18 04:59 06/04/18 06/04/18 06/04/18 08:10 11:42 11:42 Creatine Kinase 54 CK-MB (CK-2) 0.85 Troponin I < 0.012 0.075 06/04/18 06/04/18 06/04/18 17:08 17:08 23:05 Creatine Kinase 85 83 CK-MB (CK-2) 0.86 Troponin I 0.053 06/04/18 23:05 Creatine Kinase CK-MB (CK-2) 0.52 Troponin I 0.023 Impressions: Chest/Abdomen CTA 06/04/18 00:00 IMPRESSION: 1. NORMAL CTA OF THE CHEST. NO PULMONARY EMBOLI. 2. SCATTERED ATELECTASIS. MORE FOCAL ATELECTASIS VERSUS PNEUMONIA IN THE RIGHT LUNG BASE. Chest X-Ray 06/06/18 06:00 IMPRESSION: Early or developing right basilar airspace disease compared to chest film 06/05/2018. Assessment & Plan - Diagnosis (1) Acute and chronic respiratory failure Qualifiers: Respiratory failure complication: hypercapnia Qualified Code(s): J96.22 - Acute and chronic respiratory failure with hypercapnia Is this a current diagnosis for this admission?: Yes Plan: Chronically trached now aspirated into the right lung (2) Right lower lobe pneumonia Qualifiers: Pneumonia type: due to unspecified organism Qualified Code(s): J18.1 - Lobar pneumonia, unspecified organism Is this a current diagnosis for this admission?: Yes Plan: No positive cultures thus far (3) Chronic obstructive pulmonary disease Qualifiers: COPD type: unspecified COPD Qualified Code(s): J44.9 - Chronic obstructive pulmonary disease, unspecified Is this a current diagnosis for this admission?: Yes Plan: Xopenex (4) Scoliosis (and kyphoscoliosis), idiopathic Is this a current diagnosis for this admission?: Yes Plan: Musculoskeletal abnormalities contribute to her poor ventilation as well as her inability to clear secretion - Time Total Critical Time (Minutes): 40
== END 2018-06-11 13:59 | DRG 207 ==
LOC: ER 08:00 → EH 10:03 → ICU 13:10 → 3N 06-07 01:15
PROVIDERS: ADMIT Internal Medicine; ATTEND Internal Medicine
PROC: 5A1955Z Respiratory Ventilation, Greater than 96 Consecutive Hours (ICD-10-PCS; principal; 2018-06-05)
PROC: 3E0F3GC Introduction of Other Therapeutic Substance into Respiratory Tract, Percutaneous Approach (ICD-10-PCS; 2018-06-05)
DX: J15.1 Pneumonia due to Pseudomonas (principal); J96.22 Acute and chronic respiratory failure with hypercapnia; Z99.11 Dependence on respirator [ventilator] status; J69.0 Pneumonitis due to inhalation of food and vomit; Z93.0 Tracheostomy status; M41.9 Scoliosis, unspecified; J44.9 Chronic obstructive pulmonary disease, unspecified; T17.990A Other foreign object in respiratory tract, part unspecified in causing asphyxiation, initial encounter; E11.9 Type 2 diabetes mellitus without complications; I10 Essential (primary) hypertension; K21.9 Gastro-esophageal reflux disease without esophagitis; G14 Postpolio syndrome; M19.90 Unspecified osteoarthritis, unspecified site; F32.9 Major depressive disorder, single episode, unspecified; F41.9 Anxiety disorder, unspecified; R07.89 Other chest pain; Z79.4 Long term (current) use of insulin; Z87.01 Personal history of pneumonia (recurrent); Z87.891 Personal history of nicotine dependence
CPT/HCPCS: 36415; 36600; 71045; 71275; 80053; 80202; 82550; 82553; 82803; 82962; 83605; 83735; 84484; 85025; 87040; 87070; 87077; 87086; 87186; 87205; 93005; 93010; 94002; 94003; 99291; J0713; J1650; J1940; J2060; J2543; J3370; J3490; J7030; J7060; J7120; J7620; J7685; S0028

== ENCOUNTER → 2018-10-13 | Outpatient (CLI) | payer MEDICARE, MEDICAID ==
--- NOTE | 2018-10-13 15:10 | RADIOLOGY REPORT (SQ) ---
EXAM DESCRIPTION: CHEST PA/LATERAL COMPLETED DATE/TIME: 10/13/2018 2:43 pm REASON FOR STUDY: COUGH COMPARISON: 06/09/2018 EXAM PARAMETERS: NUMBER OF VIEWS: two views TECHNIQUE: Digital Frontal and Lateral radiographic views of the chest acquired. RADIATION DOSE: NA LIMITATIONS: none FINDINGS: LUNGS AND PLEURA: Chronic pleural and parenchymal changes. Stable chest deformity. Trach eostomy tube remains in place. No focal consolidation. No effusions or pneumothorax. MEDIASTINUM AND HILAR STRUCTURES: No masses or contour abnormalities. HEART AND VASCULAR STRUCTURES: Stable in appearance. BONES: Howe rods are in place. HARDWARE: None in the chest. OTHER: No other significant finding. IMPRESSION: No acute findings in the chest. TECHNICAL DOCUMENTATION: JOB ID: [id number] [employer]- All Rights Reserved Reading location - IP/workstation name: [email or web address]
== END ==
LOC: OD 14:25
PROVIDERS: ATTEND Internal Medicine
DX: R05 Cough (principal)
CPT/HCPCS: 71046

== ENCOUNTER 2019-01-04 17:01 | Inpatient (IN) | payer MEDICARE, MEDICAID ==
[2019-01-04 17:26] LABS: ABSOLUTE EOSINOPHILS # (AUTO) 0.1 10^3/uL (0.0-0.6); ABSOLUTE LYMPHOCYTES (AUTO) 0.9 10^3/uL (0.5-4.7); ABSOLUTE MONOCYTES (AUTO) 0.6 10^3/uL (0.1-1.4); ABSOLUTE NEUT (AUTO) 6.1 10^3/uL (1.7-8.2); BASOPHILS % (AUTO) 0.3 % (0-2); HEMATOCRIT 37.2 % (36.0-47.0); HEMOGLOBIN 11.9 g/dL (12.0-15.5); LYMPHOCYTES % (AUTO) 11.5 % (13-45); MEAN CORPUSCULAR HEMOGLOBIN 27.7 pg (27.0-33.4); MEAN CORPUSCULAR HGB CONC 32.1 g/dL (32.0-36.0); MEAN CORPUSCULAR VOLUME 86 fl (80-97); MONOCYTES % (AUTO) 7.6 % (3-13); PLATELET COUNT 131 10^3/uL (150-450); RED BLOOD COUNT 4.31 10^6/uL (3.72-5.28); RED CELL DISTRIBUTION WIDTH 15.5 % (11.5-14.0); SEGMENTED NEUTROPHILS % (AUTO) 79.6 % (42-78); TOTAL CELLS COUNTED % (AUTO) 100 %; WHITE BLOOD COUNT 7.7 10^3/uL (4.0-10.5)
[2019-01-04 17:50] LABS: ALKALINE PHOSPHATASE 105 U/L (38-126); ASPARTATE AMINO TRANSFERASE 18 U/L (14-36); BILIRUBIN,DIRECT 0.1 mg/dL (0.0-0.4); BILIRUBIN,TOTAL 0.4 mg/dL (0.2-1.3); BLOOD UREA NITROGEN 14 mg/dL (7-20); CALCIUM 9.2 mg/dL (8.4-10.2); CHLORIDE 92 mmol/L (98-107); GLUCOSE 99 mg/dL (75-110); POTASSIUM 4.2 mmol/L (3.6-5.0); TOTAL PROTEIN 7.1 g/dL (6.3-8.2)
--- NOTE | 2019-01-04 18:02 | RADIOLOGY REPORT (SQ) ---
EXAM DESCRIPTION: CHEST SINGLE VIEW COMPLETED DATE/TIME: 01/04/2019 5:38 pm REASON FOR STUDY: sob COMPARISON: 10/13/2018 EXAM PARAMETERS: NUMBER OF VIEWS: One view. TECHNIQUE: Single frontal radiographic view of the chest acquired. RADIATION DOSE: NA LIMITATIONS: None. FINDINGS: LUNGS AND PLEURA: Stable chronic changes. MEDIASTINUM AND HILAR STRUCTURES: No masses. Contour normal. HEART AND VASCULAR STRUCTURES: 8 ectatic aorta. BONES: Chronic scoliosis. HARDWARE: Howe rods. Tracheostomy. OTHER: No other significant finding. IMPRESSION: Stable chronic changes. TECHNICAL DOCUMENTATION: JOB ID: [id number] [employer]- All Rights Reserved Reading location - IP/workstation name: [email or web address]
[2019-01-04 18:03] LABS: ANION GAP 5 (5-19)
[2019-01-04 18:05] LABS: CARBON DIOXIDE 40 mmol/L (22-30)
[2019-01-04 18:19] LABS: APPEARANCE,URINE CLEAR; BILIRUBIN,URINE NEGATIVE (NEGATIVE); COLOR,URINE YELLOW; GLUCOSE, URINE NEGATIVE (NEGATIVE); KETONES,URINE NEGATIVE (NEGATIVE); LEUKOCYTE ESTERASE,URINE SMALL (NEGATIVE); NITRITE,URINE POSITIVE (NEGATIVE); PROTEIN,URINE NEGATIVE (NEGATIVE); URINE SPECIFIC GRAVITY 1.017; UROBILINOGEN,URINE NEGATIVE mg/dL (<2.0)
[2019-01-04 18:21] LABS: ARTERIAL BLOOD BASE EXCESS 10.5 mmol/L; ARTERIAL BLOOD H2CO3 2.97 mmol/L (1.05-1.35); ARTERIAL BLOOD HCO3 41.6 mmol/L (20-24); ARTERIAL BLOOD O2 SATURATION 95.8 % (94-98); ARTERIAL BLOOD PH 7.24 (7.35-7.45); ARTERIAL BLOOD PO2 98.2 mmHg (80-100); ARTERIAL BLOOD TOTAL CO2 44.7 mmol/L (21-25)
[2019-01-04 18:22] LABS: ARTERIAL BLOOD FIO2 3L
[2019-01-04 18:23] LABS: ARTERIAL BLOOD PCO2 98.7 mmHg (35-45)
[2019-01-04] MEDS ORDERED: PIPERACILLIN/TAZOBACTAM 3.375 GM VIAL IV ONE (19:06)
--- NOTE | 2019-01-04 19:56 | EKG REPORT ---
SEVERITY:- NORMAL ECG - SINUS RHYTHM : Confirmed by: Rachel Tillman MD 04-Jan-2019 19:55:52
--- NOTE | 2019-01-04 20:04 | ER Document Report ---
ED General - General Chief Complaint: Shortness Of Breath Stated Complaint: SHORTNESS OF BREATH Time Seen by Provider: 01/04/19 17:15 Primary Care Provider: KIMI CANELA MD [Primary Care Provider] - Follow up as needed TRAVEL OUTSIDE OF THE [place] IN LAST 30 DAYS: No - HPI Notes: Patient presents with shortness of breath. Patient has a chronic tracheostomy. She states this was placed approximately 6 months ago after respiratory failure due to pneumonia. She states for the last 2 days she has felt more short of breath. She states when home health came out today they changed her trach but she was still short of breath. She has also had increased cough and secretions. Home health noticed that the patient's oxygen saturations were in the high 80s. Therefore they called an ambulance to have patient brought to the emergency department. Here patient states she has been feeling weak as well. Symptoms have been worse with exertion and better with rest. Patient symptoms have been intermittent. They have been moderate to severe. There is no known radiation of the symptoms. She has had a fever. No vomiting or diarrhea. - Related Data Allergies/Adverse Reactions: No Known Allergies Allergy (Verified 01/04/19 18:44) Past Medical History - General Information source: Patient - Social History Smoking Status: Never Smoker Chew tobacco use (# tins/day): No Frequency of alcohol use: None Drug Abuse: None Family History: Reviewed & Not Pertinent Patient has suicidal ideation: No Patient has homicidal ideation: No - Past Medical History Cardiac Medical History: Reports: Hx Hypertension Denies: Hx Coronary Artery Disease, Hx Heart Attack Pulmonary Medical History: Reports: Hx COPD, Hx Pneumonia, Hx Respiratory Failure Denies: Hx Asthma, Hx Bronchitis Neurological Medical History: Denies: Hx Cerebrovascular Accident, Hx Seizures Endocrine Medical History: Denies: Hx Diabetes Mellitus Type 1, Hx Diabetes Mellitus Type 2 Renal/ Medical History: Denies: Hx Peritoneal Dialysis GI Medical History: Reports: Hx Gastroesophageal Reflux Disease. Denies: Hx Hepatitis, Hx Hiatal Hernia, Hx Ulcer Musculoskeletal Medical History: Reports Hx Arthritis Psychiatric Medical History: Reports: Hx Depression Infectious Medical History: Denies: Hx Hepatitis Past Surgical History: Reports: Hx Orthopedic Surgery, Other. Denies: Hx Hysterectomy, Hx Mastectomy, Hx Open Heart Surgery, Hx Pacemaker - Immunizations Hx Diphtheria, Pertussis, Tetanus Vaccination: Yes Hx Pneumococcal Vaccination: 02/23/11 Review of Systems - Review of Systems Constitutional: Malaise, Weakness Cardiovascular: Chest pain. denies: Palpitations Respiratory: Cough, Short of breath Gastrointestinal: denies: Diarrhea, Vomiting -: Yes All other systems reviewed and negative Physical Exam - Vital signs Vitals: Pulse Ox 95 01/04/19 17:02 Interpretation: Tachypneic - General General appearance: Alert In distress: Mild - HEENT Head: Normocephalic, Atraumatic Eyes: Normal Pupils: PERRL - Respiratory Respiratory status: No respiratory distress Chest status: Nontender Breath sounds: Decreased air movement - Diffuse, Rhonchi Chest palpation: Normal - Cardiovascular Rhythm: Regular Heart sounds: Normal auscultation Murmur: No - Abdominal Inspection: Normal Distension: No distension Bowel sounds: Normal Tenderness: Nontender Organomegaly: No organomegaly - Back Back: Normal, Nontender - Extremities General upper extremity: Normal inspection, Nontender, Normal color, Normal ROM, Normal temperature General lower extremity: Normal inspection, Nontender, Normal color, Normal ROM, Normal temperature, Normal weight bearing. No: Sabina's sign - Neurological Neuro grossly intact: Yes Cognition: Normal Orientation: AAOx4 [place] Coma Scale Eye Opening: Spontaneous [place] Coma Scale Verbal: Oriented [place] Coma Scale Motor: Obeys Commands [place] Coma Scale Total: 15 Speech: Normal Motor strength normal: LUE, RUE, LLE, RLE Sensory: Normal - Psychological Associated symptoms: Normal affect, Normal mood - Skin Skin Temperature: Warm Skin Moisture: Dry Skin Color: Normal Course - Re-evaluation Re-evalutation: 01/04/19 20:02 Patient has shortness of breath. She has a chronic tracheostomy. She states she has had increased work of breathing. Patient does appear to be slightly tachypneic. She does have acidosis on her blood gas. She also has hypercapnia. However patient is not somnolent and is very talkative. It does seem most prudent to treat patient with antibiotics although at this time there is no e vidence of infiltrate on x-ray. Patient is also received a breathing treatment per EMS which gave the patient some relief. Patient will also be placed on a vent to help with the hypercapnia. I have discussed the case with the child protective services social worker. - Vital Signs Vital signs: Temp Pulse Resp BP Pulse Ox 98.8 F 86 23 H 146/75 H 91 L 10/02/19 17:13 01/04/19 17:13 01/04/19 18:00 01/04/19 17:21 01/04/19 18:00 - Laboratory Result Diagrams: 01/04/19 17:13 01/04/19 17:13 Laboratory results interpreted by me: 01/04/19 01/04/19 01/04/19 17:13 17:13 17:35 Hgb 11.9 L RDW 15.5 H Plt Count 131 L Lymph % (Auto) 11.5 L Seg Neutrophils % 79.6 H Carbonic Acid ABG pH ABG pCO2 ABG HCO3 ABG Total CO2 Chloride 92 L Carbon Dioxide 40 H* Creatinine 0.37 L Lactic Acid < 0.5 L Urine Blood Urine Nitrite Ur Leukocyte Esterase 01/04/19 01/04/19 17:53 18:16 Hgb RDW Plt Count Lymph % (Auto) Seg Neutrophils % Carbonic Acid 2.97 H ABG pH 7.24 L ABG pCO2 98.7 H* ABG HCO3 41.6 H ABG Total CO2 44.7 H Chloride Carbon Dioxide Creatinine Lactic Acid Urine Blood MODERATE H Urine Nitrite POSITIVE H Ur Leukocyte Esterase SMALL H - Diagnostic Test Radiology reviewed: Image reviewed, Reports reviewed - EKG Interpretation by Me EKG shows normal: Sinus rhythm Rate: Normal - 87 Rhythm: NSR Penelope/QRS: No: Right axis deviation, Left axis deviation Critical Care Note - Critical Care Note Total time excluding time spent on procedures (mins): 50 Comments: Approximately 50 minutes of critical care time were spent on this patient. This included multiple reassessments. It included reviewing old records. It included discussions with consultants. Discharge - Discharge Clinical Impression: Post-polio syndrome Hypercapnic respiratory failure Qualifiers: Chronicity: acute Qualified Code(s): J96.02 - Acute respiratory failure with hy percapnia Condition: Critical Disposition: ADMITTED INPATIENT Admitting Provider: [facility] [facility] Admitted: ICU Referrals: KIMI CANELA MD [Primary Care Provider] - Follow up as needed
[2019-01-04] MEDS ORDERED: DEXTROSE 50%-WATER 25 GM/50 ML DISP.SYRIN IV PRN ×2 (20:22)
[2019-01-04] MEDS ORDERED: GLUCAGON,HUMAN RECOMB 1 MG INJ IM PRN (20:22)
[2019-01-04] MEDS ORDERED: DEXTROSE 40% GEL 15 GM TUBE PO PRN ×2 (20:22)
[2019-01-04] MEDS ORDERED: DEXTROSE 5% IV SCH (20:30)
[2019-01-04] MEDS ORDERED: METHYLPREDNISOLONE SOD SUCC IV SCH (20:30)
[2019-01-04] MEDS ORDERED: WATER IV SCH (20:30)
--- NOTE | 2019-01-04 20:35 | Progress Note ---
Provider Note Provider Note: Kosher Butcher Note Pt is a 68 yo woman with chronic resp failue, s/p trach, COPD, h/o PNA, HTN who presented to the ED c/o shortness of air. At home her O2 sats were in the 80s. In the ED she was found to have a PCO2 of 98. She was placed on the ventilator. Vitals/labs/imaging reports/EKG reviewed Remote chart review Assessment: critically ill 68 yo woman with acute on chronic hypercapneic respiratory failure, AECOPD. Plan: 1. Respiratory: acute on chronic hypercarbic resp failure, h/o trach. Will place pt on vent. ABG in am 2. Pulmonary: AECOPD, steroids, ATBX, duonebs 3. Supportive Care. 4. Full H&P to follow
[2019-01-04] MEDS: METHYLPREDNISOLONE INJ 125 MG/2 ML SDV IV SCH (21:50)
[2019-01-04] MEDS: FENTANYL CITRATE INJ/PF 100 MCG/2 ML AMPUL IV PRN (21:51)
[2019-01-04] MEDS: MIDAZOLAM 2 MG/2 ML INJ IV PRN (21:51)
[2019-01-04] MEDS ORDERED: NORMAL SALINE 1000 ML 500 ML IV ONE (22:06)
[2019-01-04] MEDS: ENOXAPARIN SODIUM INJ 40 MG/0.4 ML DISP.SYRIN SUBCUT SCH (22:10)
--- NOTE | 2019-01-04 23:21 | PDOC CONSULTATION ---
Consultation Consult Date: 01/04/19 Provider Consulted: NISHA PARKER Consult reason:: Tracheostomy tube exchange History of Present Illness Admission Date/PCP: 01/04/19 20:14 KIMI CANELA MD Patient complains of: Weakness History of Present Illness: MITCH ORELLANA is a 68 year old female with severe COPD, status post prolonged endotracheal intubation, status post tracheostomy placement few months ago with a 6 mm outside diameter Shiley uncuffed tracheostomy tube. The patient presents to the emergency room with severe weakness, blood gases were done revealing elevated PCO2 of 98 with a pH of 7.27. I was requested to replace the uncuffed with a cuffed tracheostomy tube at bedside. Past Medical History Cardiac Medical History: Reports: Hypertension Denies: Coronary Artery Disease, Myocardial Infarction Pulmonary Medical History: Reports: Chronic Obstructive Pulmonary Disease (COPD), Pneumonia, Respiratory Failure Denies: Asthma, Bronchitis Neurological Medical History: Denies: Seizures Endocrine Medical History: Denies: Diabetes Mellitus Type 1, Diabetes Mellitus Type 2 GI Medical History: Reports: Gastroesophageal Reflux Disease Denies: Hepatitis, Hiatal Hernia Musculoskeltal Medical History: Reports: Arthritis Psychiatric Medical History: Reports: Depression Hematology: Past Surgical History Past Surgical History: Reports: Orthopedic Surgery, Other Denies: Hysterectomy, Mastectomy, Pacemaker Social History Smoking Status: Never Smoker Frequency of Alcohol Use: None Hx Recreational Drug Use: No Hx Prescription Drug Abuse: No Family History Family History: Reviewed & Not Pertinent Parental Family History Reviewed: No Children Family History Reviewed: No Sibling(s) Family History Reviewed.: No Medication/Allergy Home Medications: Acetaminophen [Tylenol 325 mg Tablet] 325 mg PO Q4HP PRN 06/04/18 Chlorhexidine Gluconate [Peridex] 15 ml PO DAILY 06/04/18 Clonazepam [Klonopin 2 mg Tablet] 2 mg PO TIDP PRN 06/04/18 Enoxaparin Sodium [Lovenox Inj 40 mg/0.4 ml Disp.syrin] 40 mg SUBCUT DAILY 05/24 Escitalopram Oxalate [Lexapro] 20 mg PO DAILY 06/04/18 Fentanyl [Duragesic 25 Mcg/Hr Transdermal Patch] 1 each TD Q3D 06/04/18 Glucagon,Human Recombinant [Glucagon Emergency Kit] 1 mg IJ PRN PRN 06/04/18 Guaifenesin 400 mg PO PRN PRN 06/04/18 Insulin Lispro [Humalog] 0 unit SQ .SLIDING SCALE 06/04/18 Ipratropium/Albuterol Sulfate [Duoneb 3 ml Ampul] 3 ml NEB RTQ6 06/04/18 Loperamide HCl [Imodium A-D] 2 mg PO Q6HP PRN 06/04/18 Metoprolol Tartrate [Lopressor 50 mg Tablet] 50 mg PO Q12H 06/04/18 Multivitamin [Multiple Vitamins] 1 each PO DAILY 06/04/18 Omeprazole 40 mg PO DAILY 06/04/18 Quetiapine Fumarate [Seroquel 25 mg Tablet] 25 mg PO BID 06/04/18 Allergies/Adverse Reactions: No Known Allergies Allergy (Verified 01/04/19 18:44) Physical Exam Vital Signs: Temp Pulse Resp BP Pulse Ox 98.8 F 86 16 122/62 95 01/04/19 17:13 01/04/19 17:13 01/04/19 21:01 01/04/19 21:01 01/04/19 21:01 Intake & Output 01/03/19 01/04/19 01/05/19 06:59 06:59 06:59 Weight 58.967 kg General appearance: PRESENT: no acute distress, well-nourished Mouth exam: PRESENT: neck supple, other - Tracheostomy tube 6 mill[address] outside diameter in place Neck exam: PRESENT: tracheal deviation, tracheostomy - Patient with 6 mm Shiley outside diameter uncuffed tube, other - As above Results Laboratory Results: 01/04/19 17:13 01/04/19 17:13 01/04/19 01/04/19 01/04/19 17:13 17:13 17:35 WBC 7.7 RBC 4.31 Hgb 11.9 L Hct 37.2 MCV 86 MCH 27.7 MCHC 32.1 RDW 15.5 H Plt Count 131 L Seg Neutrophils % 79.6 H Carbonic Acid HCO3/H2CO3 Ratio ABG pH ABG pCO2 ABG pO2 ABG HCO3 ABG O2 Saturation ABG Base Excess FiO2 Sodium 137.4 Potassium 4.2 Chloride 92 L Carbon Dioxide 40 H* Anion Gap 5 BUN 14 Creatinine 0.37 L Est GFR ( Amer) > 60 Glucose 99 Lactic Acid < 0.5 L Calcium 9.2 Total Bilirubin 0.4 AST 18 Alkaline Phosphatase 105 Total Protein 7.1 Albumin 4.0 Urine Color Urine Appearance Urine pH Ur Specific [place] Urine Protein Urine Glucose (UA) Urine Ketones Urine Blood Urine Nitrite Ur Leukocyte Esterase Urine WBC (Auto) Urine RBC (Auto) 01/04/19 01/04/19 17:53 18:16 WBC RBC Hgb Hct MCV MCH MCHC RDW Plt Count Seg Neutrophils % Carbonic Acid 2.97 H HCO3/H2CO3 Ratio 14:1 ABG pH 7.24 L ABG pCO2 98.7 H* ABG pO2 98.2 ABG HCO3 41.6 H ABG O2 Saturation 95.8 ABG Base Excess 10.5 FiO2 3L Sodium Potassium Chloride Carbon Dioxide Anion Gap BUN Creatinine Est GFR ( Amer) Glucose Lactic Acid Calcium Total Bilirubin AST Alkaline Phosphatase Total Protein Albumin Urine Color YELLOW Urine Appearance CLEAR Urine pH 5.0 Ur Specific [place] 1.017 Urine Protein NEGATIVE Urine Glucose (UA) NEGATIVE Urine Ketones NEGATIVE Urine Blood MODERATE H Urine Nitrite POSITIVE H Ur Leukocyte Esterase SMALL H Urine WBC (Auto) 22 Urine RBC (Auto) 9 01/04/19 17:13 Troponin I < 0.012 Impressions: Chest X-Ray 01/04/19 17:25 IMPRESSION: Stable chronic changes. Assessment & Plan - Diagnosis (1) Hypercapnic respiratory failure Qualifiers: Chronicity: acute Qualified Code(s): J96.02 - Acute respiratory failure with hypercapnia Is this a current diagnosis for this admission?: Yes - Plan Summary Plan Summary: Assessment: 68-year-old female with tracheostomy done several months ago on a home ventilator by a 6 mm outside diameter uncuffed tracheostomy tube The patient has severe hypercapnia and respiratory acidosis I was requested to replace the uncuffed with a left tracheostomy tube in the side Plan: Plan to replace the uncuffed 6 mm outside diameter tracheostomy tube with a cuffed tracheostomy tube at bedside Chest x-ray to be obtained at bedside as well after the procedure I will sign off. Please call me with questions.
--- NOTE | 2019-01-04 23:28 | Operative Report ---
Operative Report DATE OF SURGERY: 01/04/19 PREOPERATIVE DIAGNOSIS: Hypercapnia with acute respiratory failure; status post tracheostomy with a 6 mm outside diameter Shiley uncuffed tracheostomy tube POSTOPERATIVE DIAGNOSIS: Same OPERATION: Attempted replacement with a 6 mm outside diameter Shiley cuffed tracheostomy tube; replacement with 4 mm outside diameter Shiley cuffed tracheostomy tube SURGEON: NISHA PARKER ANESTHESIA: Other - None TISSUE REMOVED OR ALTERED: n/a COMPLICATIONS: none ESTIMATED BLOOD LOSS: Minimal INTRAOPERATIVE FINDINGS: Narrow tracheostomy tract preventing the insertion of the calf to 6 mm outside diameter Shiley tube PROCEDURE: The procedure was done at bedside in the emergency room. The patient was in a semi-fletcher position and a 14 [place] suction tubing was inserted through the old uncuffed 6 mm Shiley tube, this was removed with ease. A 6 mm outside diameter Shiley cuffed tracheostomy tube was inserted over the suction tubing and advanced in an attempt to cannulate the trachea. However, despite multiple attempts the cutaneous tract of the tracheostomy was narrow enough to prevent passage of the cuffed tube. At this point a 4 mm outside diameter Shiley cuffed tracheostomy tube was inserted over the suction tubing inside the trachea without difficulty. The suction tubing was removed, the tracheostomy tube was attached to the ventilator and secured with tracheostomy ties. The patient tolerated procedure well. Chest x-ray was obtained to confirm good position of the tracheostomy.
--- NOTE | 2019-01-05 00:26 | RADIOLOGY REPORT (SQ) ---
EXAM DESCRIPTION: X-ray single view chest. CLINICAL HISTORY: 68 years Female, trach replacement COMPARISON: 01/04/2019 at 5:35 PM TECHNIQUE: Single portable x-ray view of the chest performed on 01/04/2019 at 11:57 PM FINDINGS: The lungs are well expanded. There is grossly stable moderate hazy opacification of the right lung and left inferior hemithorax. There is chronic deformity of the bony thorax and there are postsurgical changes consistent with spinal fixation. There is no evidence of a pneumothorax. The cardiac silhouette is stable and is enlarged. The mediastinal contours are normal. No focal soft tissue abnormalities are seen. Lines and tubes: The tracheostomy cannula appears to be satisfactory in position. IMPRESSION: 1. Tracheostomy cannula in grossly satisfactory position. 2. Stable appearance of the chest.
[2019-01-05] MEDS: IPRATROPIUM/ALBUTEROL 0.5-2.5 MG/3 ML AMPUL NEB SCH ×6 (00:56→20:40)
[2019-01-05 02:19] LABS: ARTERIAL BLOOD BASE EXCESS 9.4 mmol/L; ARTERIAL BLOOD H2CO3 1.07 mmol/L (1.05-1.35); ARTERIAL BLOOD HCO3 31.9 mmol/L (20-24); ARTERIAL BLOOD O2 SATURATION 96.9 % (94-98); ARTERIAL BLOOD PCO2 35.7 mmHg (35-45); ARTERIAL BLOOD PH 7.57 (7.35-7.45); ARTERIAL BLOOD PO2 76.7 mmHg (80-100)
[2019-01-05 02:20] LABS: ARTERIAL BLOOD FIO2 30%
[2019-01-05 04:22] LABS: HEMATOCRIT 34.4 % (36.0-47.0); HEMOGLOBIN 11.3 g/dL (12.0-15.5); MEAN CORPUSCULAR HEMOGLOBIN 27.7 pg (27.0-33.4); MEAN CORPUSCULAR HGB CONC 32.7 g/dL (32.0-36.0); MEAN CORPUSCULAR VOLUME 85 fl (80-97); PLATELET COUNT 122 10^3/uL (150-450); RED BLOOD COUNT 4.06 10^6/uL (3.72-5.28); RED CELL DISTRIBUTION WIDTH 15.4 % (11.5-14.0); WHITE BLOOD COUNT 5.2 10^3/uL (4.0-10.5)
[2019-01-05 04:45] LABS: ANION GAP 11 (5-19); BLOOD UREA NITROGEN 14 mg/dL (7-20); CALCIUM 9.5 mg/dL (8.4-10.2); CARBON DIOXIDE 32 mmol/L (22-30); CHLORIDE 95 mmol/L (98-107); GLUCOSE 141 mg/dL (75-110)
[2019-01-05] MEDS: FENTANYL CITRATE INJ/PF 100 MCG/2 ML AMPUL IV PRN (05:15)
[2019-01-05] MEDS: INSULIN REG, HUMAN 100 UNIT/ML 3 ML VIAL (PYX) SUBCUT SCH ×5 (06:33→23:44)
[2019-01-05] MEDS: METHYLPREDNISOLONE INJ 125 MG/2 ML SDV IV SCH ×4 (06:42→20:05)
[2019-01-05 08:49] LABS: ARTERIAL BLOOD BASE EXCESS 7.8 mmol/L; ARTERIAL BLOOD H2CO3 1.03 mmol/L (1.05-1.35); ARTERIAL BLOOD HCO3 30.1 mmol/L (20-24); ARTERIAL BLOOD O2 SATURATION 95.7 % (94-98); ARTERIAL BLOOD PCO2 34.1 mmHg (35-45); ARTERIAL BLOOD PH 7.56 (7.35-7.45); ARTERIAL BLOOD PO2 67.2 mmHg (80-100); ARTERIAL BLOOD TOTAL CO2 31.2 mmol/L (21-25)
[2019-01-05 08:52] LABS: ARTERIAL BLOOD FIO2 35%
[2019-01-05 09:21] LABS: ANION GAP 10 (5-19); BLOOD UREA NITROGEN 12 mg/dL (7-20); CALCIUM 9.4 mg/dL (8.4-10.2); CARBON DIOXIDE 31 mmol/L (22-30); CHLORIDE 96 mmol/L (98-107); GLUCOSE 117 mg/dL (75-110); POTASSIUM 3.7 mmol/L (3.6-5.0)
--- NOTE | 2019-01-05 09:30 | CRITICAL CARE ADMISSION REPORT ---
HPI Date:: 01/05/19 Reason for ICU Reason:: acute on chronic respiratory failure HPI: Pt is a 68 yo woman with chronic respiratory failure, trach, COPD, recent PNA who presented to the ED c/o shortness of breath. In the ED she was found to have a PCO2 of greater than 90. Her uncuffed trached was replaced with a cuffed trach and pt was placed on the vent. This am she c/o being hot and wants to eat. - Diagnosis/Plan (1) Acute and chronic respiratory failure Qualifiers: Respiratory failure complication: hypercapnia Qualified Code(s): J96.22 - Acute and chronic respiratory failure with hypercapnia Is this a current diagnosis for this admission?: Yes (2) COPD exacerbation Is this a current diagnosis for this admission?: Yes Past Medical History Cardiac Medical History: Reports: Hypertension Denies: Coronary Artery Disease, Myocardial Infarction Pulmonary Medical History: Reports: Chronic Obstructive Pulmonary Disease (COPD), Pneumonia, Respiratory Failure Denies: Asthma, Bronchitis Neurological Medical History: Denies: Seizures Endocrine Medical History: Denies: Diabetes Mellitus Type 1, Diabetes Mellitus Type 2 GI Medical History: Reports: Gastroesophageal Reflux Disease Denies: Hepatitis, Hiatal Hernia Musculoskeltal Medical History: Reports: Arthritis Psychiatric Medical History: Reports: Depression Hematology: Past Surgical History Past Surgical History: Reports: Orthopedic Surgery, Other Denies: Hysterectomy, Mastectomy, Pacemaker Social/Family History - Social History Smoking Status: Never Smoker Frequency of Alcohol Use: Rare Hx Recreational Drug Use: No Drugs: None Hx Prescription Drug Abuse: No - Medication/Allergies Allergies/Adverse Reactions: No Known Allergies Allergy (Verified 01/04/19 18:44) Review of Systems ROS unobtainable: Other - due to trach Physical Exam Vital Signs: Temp Pulse Resp BP Pulse Ox 100.6 F H 81 16 134/71 H 94 01/05/19 08:00 01/05/19 08:00 01/05/19 08:00 01/05/19 08:00 01/05/19 08:47 Intake & Output 01/04/19 01/05/19 01/06/19 06:59 06:59 06:59 Intake Total 0 Output Total 525 150 Balance -525 -150 Weight 69 kg Weight/Height Weight 69 kg Height 4 ft 11 in General appearance: PRESENT: no acute distress, well-developed, well-nourished, other - awake, alert, trached on vent Head exam: PRESENT: atraumatic, normocephalic Neck exam: PRESENT: tracheostomy Respiratory exam: PRESENT: decreased breath sounds, unlabored Cardiovascular exam: PRESENT: RRR GI/Abdominal exam: PRESENT: soft Extremities exam: PRESENT: other - no edema Neurological exam: PRESENT: alert, awake Laboratory/Radiographs Laboratory Results: 01/05/19 04:14 01/04/19 01/04/19 01/04/19 17:13 17:13 17:35 WBC 7.7 RBC 4.31 Hgb 11.9 L Hct 37.2 MCV 86 MCH 27.7 MCHC 32.1 RDW 15.5 H Plt Count 131 L Seg Neutrophils % 79.6 H Carbonic Acid HCO3/H2CO3 Ratio ABG pH ABG pCO2 ABG pO2 ABG HCO3 ABG O2 Saturation ABG Base Excess FiO2 Sodium 137.4 Potassium 4.2 Chloride 92 L Carbon Dioxide 40 H* Anion Gap 5 BUN 14 Creatinine 0.37 L Est GFR ( Amer) > 60 Glucose 99 Lactic Acid < 0.5 L Calcium 9.2 Total Bilirubin 0.4 AST 18 Alkaline Phosphatase 105 Total Protein 7.1 Albumin 4.0 Urine Color Urine Appearance Urine pH Ur Specific [place] Urine Protein Urine Glucose (UA) Urine Ketones Urine Blood Urine Nitrite Ur Leukocyte Esterase Urine WBC (Auto) Urine RBC (Auto) 01/04/19 01/04/19 01/05/19 17:53 18:16 02:10 WBC RBC Hgb Hct MCV MCH MCHC RDW Plt Count Seg Neutrophils % Carbonic Acid 2.97 H 1.07 HCO3/H2CO3 Ratio 14:1 29:1 ABG pH 7.24 L 7.57 H ABG pCO2 98.7 H* 35.7 ABG pO2 98.2 76.7 L ABG HCO3 41.6 H 31.9 H ABG O2 Saturation 95.8 96.9 ABG Base Excess 10.5 9.4 FiO2 3L 30% Sodium Potassium Chloride Carbon Dioxide Anion Gap BUN Creatinine Est GFR ( Amer) Glucose Lactic Acid Calcium Total Bilirubin AST Alkaline Phosphatase Total Protein Albumin Urine Color YELLOW Urine Appearance CLEAR Urine pH 5.0 Ur Specific [place] 1.017 Urine Protein NEGATIVE Urine Glucose (UA) NEGATIVE Urine Ketones NEGATIVE Urine Blood MODERATE H Urine Nitrite POSITIVE H Ur Leukocyte Esterase SMALL H Urine WBC (Auto) 22 Urine RBC (Auto) 9 01/05/19 01/05/19 01/05/19 04:14 04:14 08:30 WBC 5.2 RBC 4.06 Hgb 11.3 L Hct 34.4 L MCV 85 MCH 27.7 MCHC 32.7 RDW 15.4 H Plt Count 122 L Seg Neutrophils % Carbonic Acid 1.03 L HCO3/H2CO3 Ratio 29:1 ABG pH 7.56 H ABG pCO2 34.1 L ABG pO2 67.2 L ABG HCO3 30.1 H ABG O2 Saturation 95.7 ABG Base Excess 7.8 FiO2 35% Sodium 138.2 Potassium 4.0 Chloride 95 L Carbon Dioxide 32 H Anion Gap 11 BUN 14 Creatinine 0.36 L Est GFR ( Amer) > 60 Glucose 141 H Lactic Acid Calcium 9.5 Total Bilirubin AST Alkaline Phosphatase Total Protein Albumin Urine Color Urine Appearance Urine pH Ur Specific [place] Urine Protein Urine Glucose (UA) Urine Ketones Urine Blood Urine Nitrite Ur Leukocyte Esterase Urine WBC (Auto) Urine RBC (Auto) 01/04/19 17:13 Troponin I < 0.012 Critical Time -: The care of a critically ill patient is dynamic. This note represents a static moment in the admission process. orders and treatments may be given simulataneously and urgentl, and time is not technical sales representative of the treatment process. This patient requires Critical Care secondary to life threating organ or limb dysfunction. Without the need for Critical Care services, the patient is at risk for increasid mortality and morbidity. Provider Note Provider Note: Assessment: critically ill 68 yo woman with acute on chronic hypercapneic respiratory failure, AECOPD. Plan: 1. Respiratory: acute on chronic hypercarbic resp failure-resolving., h/o trach. Trach exchanged last night. Her #6 Shiley uncuffed trach was replaced with a size 4 Shiley [address] Will [address] pt on CPAP and wean to trach collar as tolerated 2. Pulmonary: AECOPD. Continue, steroids, levaquin, and duonebs 3. Endocrine: accuchecks, SSI 4. Nutrition: NPO. Will ask speech therapy to evaluate pt to see if she can eat with the cuffed trach in place. 5. Prophylax: lovenox 6. Son at bedside. Updated on pt condition and plan of care. Critical care time= 40 min, excluding procedures
[2019-01-05] MEDS: ENOXAPARIN SODIUM INJ 40 MG/0.4 ML DISP.SYRIN SUBCUT SCH (09:48)
[2019-01-05] MEDS: LEVOFLOXACIN 750 MG/D5W RTU 750 MG/150 ML RTUPB IV SCH (09:58)
--- NOTE | 2019-01-05 10:02 | RADIOLOGY REPORT (SQ) ---
EXAM DESCRIPTION: CHEST SINGLE VIEW COMPLETED DATE/TIME: 01/05/2019 9:13 am REASON FOR STUDY: acute resp failure COMPARISON: Chest film 11/29/2017, 06/04/2018, 01/04/2019 EXAM PARAMETERS: NUMBER OF VIEWS: One view. TECHNIQUE: Single frontal radiographic view of the chest acquired. RADIATION DOSE: NA LIMITATIONS: None. FINDINGS: LUNGS AND PLEURA: Chronic increased interstitial markings are present. There is hypoinfla tion at the left lung base as compared to the prior studies, left basilar consolidation may be presen t. No gross pneumothorax or pleural effusion. MEDIASTINUM AND HILAR STRUCTURES: No masses. Contour normal. HEART AND VASCULAR STRUCTURES: Stable cardiomegaly BONES: No acute findings. HARDWARE: Tracheostomy tube tip in the upper trachea. Howe apple over the thoracic spine. OTHER: No other significant finding. IMPRESSION: Decreased aeration at the left lung base compared to study from November 2017, left basila r infiltrate may be present. TECHNICAL DOCUMENTATION: JOB ID: [id number] [employer]- All Rights Reserved Reading location - IP/workstation name: [email or web address]
[2019-01-06] MEDS: MIDAZOLAM 2 MG/2 ML INJ IV PRN (00:13)
[2019-01-06] MEDS: IPRATROPIUM/ALBUTEROL 0.5-2.5 MG/3 ML AMPUL NEB SCH ×7 (00:51→23:54)
[2019-01-06] MEDS: METHYLPREDNISOLONE INJ 125 MG/2 ML SDV IV SCH (02:48)
[2019-01-06 05:11] LABS: HEMATOCRIT 33.8 % (36.0-47.0); HEMOGLOBIN 10.8 g/dL (12.0-15.5); MEAN CORPUSCULAR HEMOGLOBIN 27.1 pg (27.0-33.4); MEAN CORPUSCULAR HGB CONC 31.8 g/dL (32.0-36.0); MEAN CORPUSCULAR VOLUME 85 fl (80-97); PLATELET COUNT 144 10^3/uL (150-450); RED BLOOD COUNT 3.97 10^6/uL (3.72-5.28); RED CELL DISTRIBUTION WIDTH 15.8 % (11.5-14.0)
[2019-01-06 05:16] LABS: WHITE BLOOD COUNT 12.3 10^3/uL (4.0-10.5)
[2019-01-06 05:20] LABS: BLOOD UREA NITROGEN 14 mg/dL (7-20); CARBON DIOXIDE 39 mmol/L (22-30); CHLORIDE 97 mmol/L (98-107); GLUCOSE 145 mg/dL (75-110); POTASSIUM 3.7 mmol/L (3.6-5.0)
[2019-01-06 05:32] LABS: ANION GAP 4 (5-19)
[2019-01-06 05:33] LABS: ABSOLUTE LYMPHOCYTES# (MANUAL) 0.2 10^3/uL (0.5-4.7); ABSOLUTE MONOCYTES # (MANUAL) 0.6 10^3/uL (0.1-1.4); ANISOCYTOSIS SLIGHT; BAND NEUTROPHILS % (MANUAL) 1 % (3-5); BASOPHILS % (MANUAL) 0 % (0-2); EOSINOPHILS % (MANUAL) 0 % (0-6); LYMPHOCYTES % (MANUAL) 2 % (13-45); MONOCYTES % (MANUAL) 5 % (3-13); PLATELET COMMENT ADEQUATE; SEGMENTED NEUTROPHILS % (MAN) 92 % (42-78); TOTAL CELLS COUNTED 100
[2019-01-06] MEDS: INSULIN REG, HUMAN 100 UNIT/ML 3 ML VIAL (PYX) SUBCUT SCH ×4 (05:36→23:59)
[2019-01-06] MEDS: LEVOFLOXACIN 750 MG/D5W RTU 750 MG/150 ML RTUPB IV SCH (09:41)
[2019-01-06] MEDS: HYDROCHLOROTHIAZIDE 12.5 MG TABLET PO SCH (09:41)
[2019-01-06] MEDS: METOPROLOL SUCCINATE 50 MG TAB.SR.24H PO SCH (09:43)
[2019-01-06] MEDS: LOSARTAN POTASSIUM 50 MG TABLET PO SCH (09:44)
[2019-01-06] MEDS: PREDNISONE 20 MG TABLET PO SCH (09:44)
[2019-01-06] MEDS: ASPIRIN 81 MG TABLET, CHEWABLE PO SCH (09:45)
[2019-01-06] MEDS: ENOXAPARIN SODIUM INJ 40 MG/0.4 ML DISP.SYRIN SUBCUT SCH (09:45)
[2019-01-06 10:42] LABS: APPEARANCE,URINE CLEAR; BILIRUBIN,URINE NEGATIVE (NEGATIVE); COLOR,URINE YELLOW; GLUCOSE, URINE NEGATIVE (NEGATIVE); KETONES,URINE NEGATIVE (NEGATIVE); LEUKOCYTE ESTERASE,URINE NEGATIVE (NEGATIVE); NITRITE,URINE NEGATIVE (NEGATIVE); PROTEIN,URINE 30 mg/dL (NEGATIVE); URIC ACID CRYSTALS,URINE FEW /HPF; URINE SPECIFIC GRAVITY 1.016; UROBILINOGEN,URINE NEGATIVE mg/dL (<2.0)
--- NOTE | 2019-01-06 11:08 | PDOC PROGRESS REPORT ---
Subjective Progress Note for:: 01/06/19 Subjective:: ICU Progress Note. Pt is on trach collar. Had no acute overnight events. Reason For Visit: ACUTE ON CHRONIC RESPIRATORY FAILURE,AECOPD Physical Exam Vital Signs: Temp Pulse Resp BP Pulse Ox 98.8 F 70 18 131/64 H 96 01/06/19 08:00 01/06/19 08:16 01/06/19 10:35 01/06/19 10:35 01/06/19 10:35 Intake & Output 01/05/19 01/06/19 01/07/19 06:59 06:59 06:59 Intake Total 0 660 Output Total 525 1500 85 Balance -525 -840 -85 Weight 69 kg 70.6 kg General appearance: PRESENT: no acute distress, well-developed, well-nourished - on trach mask Neck exam: PRESENT: tracheostomy Respiratory exam: PRESENT: clear to auscultation ryley, unlabored Cardiovascular exam: PRESENT: RRR GI/Abdominal exam: PRESENT: soft Gentrourinary exam: PRESENT: indwelling catheter Neurological exam: PRESENT: alert, awake Results Laboratory Results: 01/06/19 04:46 01/06/19 04:46 01/06/19 01/06/19 01/06/19 04:46 04:46 09:57 WBC 12.3 H D RBC 3.97 Hgb 10.8 L Hct 33.8 L MCV 85 MCH 27.1 MCHC 31.8 L RDW 15.8 H Plt Count 144 L Seg Neutrophils % Not Reportable Sodium 139.9 Potassium 3.7 Chloride 97 L Carbon Dioxide 39 H Anion Gap 4 L BUN 14 Creatinine 0.39 L Est GFR ( Amer) > 60 Glucose 145 H Calcium 9.0 Urine Color YELLOW Urine Appearance CLEAR Urine pH 6.0 Ur Specific [place] 1.016 Urine Protein 30 H Urine Glucose (UA) NEGATIVE Urine Ketones NEGATIVE Urine Blood LARGE H Urine Nitrite NEGATIVE Ur Leukocyte Esterase NEGATIVE Urine WBC (Auto) 3 Urine RBC (Auto) 114 01/04/19 17:13 Troponin I < 0.012 Impressions: Chest X-Ray 01/05/19 08:12 IMPRESSION: Decreased aeration at the left lung base compared to study from November 2017, left basilar infiltrate may be present. Assessment & Plan - Diagnosis (1) Acute and chronic respiratory failure Qualifiers: Respiratory failure complication: hypercapnia Qualified Code(s): J96.22 - Acute and chronic respiratory failure with hypercapnia Is this a current diagnosis for this admission?: Yes (2) COPD with acute exacerbation Is this a current diagnosis for this admission?: Yes (3) Pneumonia Qualifiers: Pneumonia type: aspiration pneumonia Aspiration pneumonia type: unspecified Laterality: unspecified laterality Lung location: unspecified part of lung Qualified Code(s): J69.0 - Pneumonitis due to inhalation of food and vomit Is this a current diagnosis for this admission?: Yes (4) UTI (urinary tract infection) Is this a current diagnosis for this admission?: Yes - Plan Summary Plan Summary: Assessment: critically ill 68 yo woman with acute on chronic hypercapneic respiratory failure, AECOPD. Plan: 1. Respiratory: acute on chronic hypercarbic resp failure-resolving., h/o trach. Trach exchanged in the ED. Her #6 Shiley uncuffed trach was replaced with a size 4 Shiley cuffed trach. Pt is tolerating TM. Is on 2-3 liters oxygen at home. Will wean as tolerated. Speech therapy consulted for PMV placement. 2. Pulmonary: AECOPD, PNA, present on admission. WBC increasing, may be due to steroids. Continue levaquin and wean steroids. Continue duonebs 3 CV: HTN. Will resume home BP meds 4. ID: PNA. UTI, present on admssion. Worsening leuckocytosis. May be due to steroids. Will continue levaquin. Pt is afebrile. Will repeat cultures 5. Endocrine: accuchecks, SSI 6. Nutrition: tolerating regular diet 7. Prophylax: lovenox 8. Will consult PT to ambulate with pt 9. Disposition: stable for transfer out of the ICU
[2019-01-06] MEDS ORDERED: ALBUTEROL SULFATE 0.042% NEB (1.25 MG/3 ML) AMPUL NEB ONE (13:30)
[2019-01-06] MEDS: MONTELUKAST SODIUM 10 MG TABLET PO SCH ×2 (13:51→21:54)
[2019-01-06] MEDS ORDERED: LORAZEPAM 0.5 MG TABLET PO PRN (15:32)
[2019-01-06] MEDS ORDERED: PHENOL/SODIUM PHENOLATE 100 SPRAY/177 ML BOTTLE PO PRN (15:36)
[2019-01-06] MEDS: LORAZEPAM INJ 2 MG/1 ML VIAL IV PRN ×2 (16:52→21:57)
[2019-01-06] MEDS: CHLORHEXIDINE GLUCONATE 0.12% ORAL RINSE 15 ML UDC MM SCH (17:58)
[2019-01-06] MEDS: CHLORPHENIRAMINE MALEATE 4 MG TABLET PO SCH ×2 (17:58→23:58)
[2019-01-06] MEDS: QUETIAPINE FUMARATE 25 MG TABLET PO SCH (21:54)
[2019-01-06] MEDS ORDERED: QUETIAPINE FUMARATE 25 MG TABLET PO SCH (22:00)
[2019-01-07] MEDS: IPRATROPIUM/ALBUTEROL 0.5-2.5 MG/3 ML AMPUL NEB SCH ×5 (04:12→20:22)
[2019-01-07 05:35] LABS: HEMATOCRIT 37.7 % (36.0-47.0); HEMOGLOBIN 12.1 g/dL (12.0-15.5); MEAN CORPUSCULAR HEMOGLOBIN 27.4 pg (27.0-33.4); MEAN CORPUSCULAR HGB CONC 32.1 g/dL (32.0-36.0); MEAN CORPUSCULAR VOLUME 85 fl (80-97); RED BLOOD COUNT 4.42 10^6/uL (3.72-5.28); WHITE BLOOD COUNT 14.1 10^3/uL (4.0-10.5)
[2019-01-07 05:46] LABS: ANION GAP 5 (5-19); BLOOD UREA NITROGEN 19 mg/dL (7-20); CALCIUM 8.8 mg/dL (8.4-10.2); CARBON DIOXIDE 38 mmol/L (22-30); CHLORIDE 97 mmol/L (98-107); GLUCOSE 148 mg/dL (75-110); POTASSIUM 4.1 mmol/L (3.6-5.0)
[2019-01-07] MEDS: INSULIN REG, HUMAN 100 UNIT/ML 3 ML VIAL (PYX) SUBCUT SCH ×4 (05:52→23:02)
[2019-01-07] MEDS: CHLORPHENIRAMINE MALEATE 4 MG TABLET PO SCH ×3 (05:52→17:35)
[2019-01-07 07:19] LABS: ABSOLUTE LYMPHOCYTES# (MANUAL) 1.1 10^3/uL (0.5-4.7); ABSOLUTE MONOCYTES # (MANUAL) 0.6 10^3/uL (0.1-1.4); ANISOCYTOSIS 1+; BAND NEUTROPHILS % (MANUAL) 1 % (3-5); BASOPHILS % (MANUAL) 0 % (0-2); EOSINOPHILS % (MANUAL) 0 % (0-6); HYPOCHROMASIA 1+; LYMPHOCYTES % (MANUAL) 8 % (13-45); MONOCYTES % (MANUAL) 4 % (3-13); PLATELET COMMENT DECREASED; SEGMENTED NEUTROPHILS % (MAN) 87 % (42-78); TOTAL CELLS COUNTED 100
[2019-01-07 07:20] LABS: PLATELET COUNT 141 10^3/uL (150-450)
[2019-01-07] MEDS: ASPIRIN 81 MG TABLET, CHEWABLE PO SCH (09:38)
[2019-01-07] MEDS: HYDROCHLOROTHIAZIDE 12.5 MG TABLET PO SCH (09:38)
[2019-01-07] MEDS: LOSARTAN POTASSIUM 50 MG TABLET PO SCH (09:39)
[2019-01-07] MEDS: PREDNISONE 20 MG TABLET PO SCH (09:39)
[2019-01-07] MEDS: LEVOFLOXACIN 750 MG/D5W RTU 750 MG/150 ML RTUPB IV SCH (09:40)
[2019-01-07] MEDS: ENOXAPARIN SODIUM INJ 40 MG/0.4 ML DISP.SYRIN SUBCUT SCH (09:40)
[2019-01-07] MEDS: METOPROLOL SUCCINATE 50 MG TAB.SR.24H PO SCH (09:41)
[2019-01-07] MEDS: CHLORHEXIDINE GLUCONATE 0.12% ORAL RINSE 15 ML UDC MM SCH ×2 (09:41→17:35)
[2019-01-07] MEDS ORDERED: METOPROLOL SUCCINATE 50 MG TAB.SR.24H PO SCH (10:00)
[2019-01-07] MEDS ORDERED: (PENDING PHARMACY ID) (Vortioxetine Hydrobromide [Trintellix] 10 MG) PO SCH (10:00)
[2019-01-07] MEDS ORDERED: (PENDING PHARMACY ID) (Losartan/Hydrochlorothiazide [Losartan-Hctz 50-12.5 Mg Tab] 1 EACH) PO SCH (10:00)
--- NOTE | 2019-01-07 10:37 | PDOC PROGRESS REPORT ---
Subjective Progress Note for:: 01/07/19 Subjective:: The patient has episodes of intractable coughing. She occasionally will cough up mucus. She states that it is from the area of the tracheostomy. She is very worried about the cuff. See discussion below. Reason For Visit: ACUTE ON CHRONIC RESPIRATORY FAILURE,AECOPD Physical Exam Vital Signs: Temp Pulse Resp BP Pulse Ox 98.4 F 82 19 134/66 H 96 01/07/19 07:45 01/07/19 07:45 01/07/19 07:45 01/07/19 07:45 01/07/19 07:45 Intake & Output 01/06/19 01/07/19 01/08/19 06:59 06:59 06:59 Intake Total 660 1420 Output Total 1500 325 Balance -840 1095 Weight 70.6 kg 67 kg General appearance: PRESENT: cooperative, mild distress, well-developed Head exam: PRESENT: atraumatic, normocephalic Ear exam: PRESENT: normal external ear exam. ABSENT: bleeding, drainage Mouth exam: PRESENT: moist, tongue midline Neck exam: PRESENT: tracheostomy Respiratory exam: PRESENT: symmetrical, tachypnea, wheezes. ABSENT: rales, stridor Cardiovascular exam: PRESENT: RRR, +S1, +S2, systolic murmur GI/Abdominal exam: PRESENT: distended - Protuberant, normal bowel sounds, soft. ABSENT: tenderness Musculoskeletal exam: PRESENT: other - Scoliosis Neurological exam: PRESENT: alert, awake, oriented to person, oriented to place, oriented to time, oriented to situation, CN II-XII grossly intact Psychiatric exam: PRESENT: anxious. ABSENT: agitated Results Laboratory Results: 01/07/19 04:49 01/07/19 04:49 01/06/19 01/07/19 01/07/19 09:57 04:49 04:49 WBC 14.1 H RBC 4.42 Hgb 12.1 Hct 37.7 MCV 85 MCH 27.4 MCHC 32.1 RDW 16.0 H Plt Count 141 L Seg Neutrophils % Not Reportable Sodium 139.8 Potassium 4.1 Chloride 97 L Carbon Dioxide 38 H Anion Gap 5 BUN 19 Creatinine 0.41 L Est GFR ( Amer) > 60 Glucose 148 H Calcium 8.8 Urine Color YELLOW Urine Appearance CLEAR Urine pH 6.0 Ur Specific [place] 1.016 Urine Protein 30 H Urine Glucose (UA) NEGATIVE Urine Ketones NEGATIVE Urine Blood LARGE H Urine Nitrite NEGATIVE Ur Leukocyte Esterase NEGATIVE Urine WBC (Auto) 3 Urine RBC (Auto) 114 01/04/19 17:13 Troponin I < 0.012 Impressions: Chest X-Ray 01/05/19 08:12 IMPRESSION: Decreased aeration at the left lung base compared to study from November 2017, left basilar infiltrate may be present. Assessment and Plan - Diagnosis (1) Acute and chronic respiratory failure Qualifiers: Respiratory failure complication: hypoxia and hypercapnia Qualified Code(s): J96.21 - Acute and chronic respiratory failure with hypoxia; J96.22 - Acute and chronic respiratory failure with hypercapnia Is this a current diagnosis for this admission?: Yes (2) COPD exacerbation Is this a current diagnosis for this admission?: Yes (3) Hypertension Qualifiers: Hypertension type: essential hypertension Qualified Code(s): I10 - Essential (primary) hypertension Is this a current diagnosis for this admission?: Yes - Plan Summary Summary: 01/07/2019- Acute on chronic hypoxic/hypercapnic respiratory failure-patient required a change to a cuffed tube so that piece of BiPAP would be effective. She is resting with the balloon down at this time. She is worried since changing the sick so Shiley to a 4 with cuff was a little traumatic and she had some bleeding. I explained that she will likely be able to return to a cuffless trach when we are comfortable that she is stable from a respiratory standpoint. She does have an intractable cough. Continue duo nebs and budesonide. I have a lso ordered Chloraseptic spray for any throat irritation above the tracheostomy tube. We will continue her home medications for hypertension with parameters to hold for low blood pressure. - Time Time Spent with patient: 15-24 minutes
[2019-01-07] MEDS ORDERED: DIPHENHYDRAMINE HCL 50 MG/ML VIAL IV ONE (20:00)
[2019-01-07] MEDS ORDERED: ACETAMINOPHEN 325 MG TABLET PO ONE (20:00)
[2019-01-07] MEDS: BUDESONIDE NEB 0.5 MG/2 ML AMPUL NEB SCH (20:22)
[2019-01-07] MEDS: MONTELUKAST SODIUM 10 MG TABLET PO SCH (22:34)
[2019-01-07] MEDS: QUETIAPINE FUMARATE 25 MG TABLET PO SCH (22:34)
[2019-01-07] MEDS: FLUTICASONE NASAL SPRAY 50 MCG/SPRY 120 SPRAY/16 GM NASL SCH (22:35)
[2019-01-08] MEDS: IPRATROPIUM/ALBUTEROL 0.5-2.5 MG/3 ML AMPUL NEB SCH ×7 (00:19→23:57)
[2019-01-08] MEDS: CHLORPHENIRAMINE MALEATE 4 MG TABLET PO SCH ×5 (00:41→23:13)
[2019-01-08] MEDS: INSULIN REG, HUMAN 100 UNIT/ML 3 ML VIAL (PYX) SUBCUT SCH ×5 (05:50→23:13)
[2019-01-08 05:56] LABS: ABSOLUTE LYMPHOCYTES (AUTO) 1.7 10^3/uL (0.5-4.7); ABSOLUTE MONOCYTES (AUTO) 0.9 10^3/uL (0.1-1.4); ABSOLUTE NEUT (AUTO) 5.4 10^3/uL (1.7-8.2); BASOPHILS % (AUTO) 0.2 % (0-2); EOSINOPHILS % (AUTO) 0.4 % (0-6); HEMATOCRIT 35.9 % (36.0-47.0); HEMOGLOBIN 11.7 g/dL (12.0-15.5); LYMPHOCYTES % (AUTO) 21.1 % (13-45); MEAN CORPUSCULAR HEMOGLOBIN 27.6 pg (27.0-33.4); MEAN CORPUSCULAR HGB CONC 32.5 g/dL (32.0-36.0); MEAN CORPUSCULAR VOLUME 85 fl (80-97); MONOCYTES % (AUTO) 11.4 % (3-13); PLATELET COUNT 154 10^3/uL (150-450); RED BLOOD COUNT 4.22 10^6/uL (3.72-5.28); RED CELL DISTRIBUTION WIDTH 16.1 % (11.5-14.0); SEGMENTED NEUTROPHILS % (AUTO) 66.9 % (42-78); TOTAL CELLS COUNTED % (AUTO) 100 %
[2019-01-08 06:21] LABS: BLOOD UREA NITROGEN 15 mg/dL (7-20); CALCIUM 8.7 mg/dL (8.4-10.2); CHLORIDE 95 mmol/L (98-107); GLUCOSE 83 mg/dL (75-110); POTASSIUM 3.7 mmol/L (3.6-5.0)
[2019-01-08 06:28] LABS: ANION GAP 5 (5-19); CARBON DIOXIDE 39 mmol/L (22-30)
[2019-01-08] MEDS: BUDESONIDE NEB 0.5 MG/2 ML AMPUL NEB SCH ×2 (08:13→20:24)
[2019-01-08] MEDS: LEVOFLOXACIN 750 MG/D5W RTU 750 MG/150 ML RTUPB IV SCH (09:11)
[2019-01-08] MEDS: ASPIRIN 81 MG TABLET, CHEWABLE PO SCH (09:12)
[2019-01-08] MEDS: PREDNISONE 20 MG TABLET PO SCH (09:13)
[2019-01-08] MEDS: HYDROCHLOROTHIAZIDE 12.5 MG TABLET PO SCH (09:14)
[2019-01-08] MEDS: LOSARTAN POTASSIUM 50 MG TABLET PO SCH (09:14)
[2019-01-08] MEDS: METOPROLOL SUCCINATE 50 MG TAB.SR.24H PO SCH (09:14)
[2019-01-08] MEDS: FLUTICASONE NASAL SPRAY 50 MCG/SPRY 120 SPRAY/16 GM NASL SCH ×2 (09:15→23:14)
[2019-01-08] MEDS: CHLORHEXIDINE GLUCONATE 0.12% ORAL RINSE 15 ML UDC MM SCH ×2 (09:15→18:01)
[2019-01-08] MEDS: ENOXAPARIN SODIUM INJ 40 MG/0.4 ML DISP.SYRIN SUBCUT SCH (13:31)
--- NOTE | 2019-01-08 13:55 | PDOC PROGRESS REPORT ---
Subjective Progress Note for:: 01/08/19 Subjective:: Patient is back on trach collar. She uses a trach collar at home. She is wondering when she will go home. She admits that she is unsteady on her feet but is comfortable using a front wheel walker. She has used continue on home care in the past and I have requested that she get home health with continue home will be for physical therapy and jail. She also reports that she is eating without difficulty with the new trach. Reason For Visit: ACUTE ON CHRONIC RESPIRATORY FAILURE,AECOPD Physical Exam Vital Signs: Temp Pulse Resp BP Pulse Ox 99.2 F 78 18 135/70 H 94 01/08/19 12:16 01/08/19 12:16 01/08/19 12:16 01/08/19 12:16 01/08/19 12:16 Intake & Output 01/07/19 01/08/19 01/09/19 06:59 06:59 06:59 Intake Total 1420 1110 630 Output Total 325 50 Balance 1095 1060 630 Weight 67 kg 68.2 kg General appearance: PRESENT: no acute distress, cooperative, well-developed Head exam: PRESENT: atraumatic, normocephalic Ear exam: PRESENT: normal external ear exam. ABSENT: bleeding, drainage Neck exam: PRESENT: tracheostomy - With trach collar in place Respiratory exam: PRESENT: prolonged expiratory phas, symmetrical, tachypnea - Very mild. ABSENT: rales, rhonchi, wheezes Cardiovascular exam: PRESENT: RRR, +S1, +S2 GI/Abdominal exam: PRESENT: normal bowel sounds, soft. ABSENT: distended, tenderness Extremities exam: ABSENT: pedal edema Neurological exam: PRESENT: alert, awake, oriented to person, oriented to place, oriented to time, oriented to situation, CN II-XII grossly intact Psychiatric exam: PRESENT: appropriate affect. ABSENT: agitated, anxious Focused psych exam: ABSENT: delusional, restlessness Results Laboratory Results: 01/08/19 05:22 01/08/19 05:22 01/08/19 01/08/19 05:22 05:22 WBC 8.0 RBC 4.22 Hgb 11.7 L Hct 35.9 L MCV 85 MCH 27.6 MCHC 32.5 RDW 16.1 H Plt Count 154 Seg Neutrophils % 66.9 Sodium 139.4 Potassium 3.7 Chloride 95 L Carbon Dioxide 39 H Anion Gap 5 BUN 15 Creatinine 0.47 L Est GFR ( Amer) > 60 Glucose 83 Calcium 8.7 01/06/19 09:57 Sweeney Catheter Urine Culture - Final NO GROWTH 2 DAYS 01/04/19 17:13 Troponin I < 0.012 Impressions: Chest X-Ray 01/05/19 08:12 IMPRESSION: Decreased aeration at the left lung base compared to study from November 2017, left basilar infiltrate may be present. Assessment and Plan - Diagnosis (1) Acute and chronic respiratory failure Qualifiers: Respiratory failure complication: hypoxia and hypercapnia Qualified Code(s): J96.21 - Acute and chronic respiratory failure with hypoxia; J96.22 - Acute and chronic respiratory failure with hypercapnia Is this a current diagnosis for this admission?: Yes (2) COPD exacerbation Is this a current diagnosis for this admission?: Yes (3) Hypertension Qualifiers: Hypertension type: essential hypertension Qualified Code(s): I10 - Ess ential (primary) hypertension Is this a current diagnosis for this admission?: Yes (5) Hyperglycemia Is this a current diagnosis for this admission?: Yes - Plan Summary Summary: 01/07/2019- Acute on chronic hypoxic/hypercapnic respiratory failure-patient required a change to a cuffed tube so that piece of BiPAP would be effective. She is resting with the balloon down at this time. She is worried since changing the sick so Shiley to a 4 with cuff was a little traumatic and she had some bleeding. I explained that she will likely be able to return to a cuffless trach when we are comfortable that she is stable from a respiratory standpoint. She does have an intractable cough. Continue duo nebs and budesonide. I have also ordered Chloraseptic spray for any throat irritation above the tracheostomy tube. We will continue her home medications for hypertension with parameters to hold for low blood pressure. 01/08/2019- The patient states that she feels back to her baseline. She uses a trach collar for oxygen supplementation at home. She is still worried about the cuffed t racheostomy tube but I explained that this can be swapped out later. She certainly is not coughing nearly as much. Continue current nebulizer treatments. Hyperglycemia-the patient is exhibiting elevated glucose levels. I believe this is related to her steroid doses. We will continue Accu-Cheks and sliding scale coverage. The patient is anxious to get home. She is set up for care of her tracheostomy already. I believe she is close to her baseline. I will refer the patient back to Dr. Hodges tomorrow as he is her primary care provider. We should also set up an appointment with Dr. Pan who is her fixed income manager. - Time Time Spent with patient: 15-24 minutes Anticipated discharge: Home with Homehealth
[2019-01-08] MEDS: MONTELUKAST SODIUM 10 MG TABLET PO SCH (23:13)
[2019-01-08] MEDS: QUETIAPINE FUMARATE 25 MG TABLET PO SCH (23:13)
[2019-01-09] MEDS: IPRATROPIUM/ALBUTEROL 0.5-2.5 MG/3 ML AMPUL NEB SCH ×6 (04:07→23:47)
[2019-01-09] MEDS: CHLORPHENIRAMINE MALEATE 4 MG TABLET PO SCH ×4 (05:03→23:07)
[2019-01-09 07:20] LABS: ABSOLUTE EOSINOPHILS # (AUTO) 0.1 10^3/uL (0.0-0.6); ABSOLUTE LYMPHOCYTES (AUTO) 2.2 10^3/uL (0.5-4.7); ABSOLUTE MONOCYTES (AUTO) 0.9 10^3/uL (0.1-1.4); ABSOLUTE NEUT (AUTO) 5.3 10^3/uL (1.7-8.2); BASOPHILS % (AUTO) 0.1 % (0-2); EOSINOPHILS % (AUTO) 1.7 % (0-6); HEMATOCRIT 38.1 % (36.0-47.0); HEMOGLOBIN 12.3 g/dL (12.0-15.5); LYMPHOCYTES % (AUTO) 25.4 % (13-45); MEAN CORPUSCULAR HEMOGLOBIN 27.5 pg (27.0-33.4); MEAN CORPUSCULAR HGB CONC 32.3 g/dL (32.0-36.0); MEAN CORPUSCULAR VOLUME 85 fl (80-97); MONOCYTES % (AUTO) 10.5 % (3-13); PLATELET COUNT 172 10^3/uL (150-450); RED BLOOD COUNT 4.47 10^6/uL (3.72-5.28); RED CELL DISTRIBUTION WIDTH 15.8 % (11.5-14.0); SEGMENTED NEUTROPHILS % (AUTO) 62.3 % (42-78); TOTAL CELLS COUNTED % (AUTO) 100 %; WHITE BLOOD COUNT 8.5 10^3/uL (4.0-10.5)
[2019-01-09 07:59] LABS: BLOOD UREA NITROGEN 16 mg/dL (7-20); CALCIUM 8.7 mg/dL (8.4-10.2); CHLORIDE 95 mmol/L (98-107); GLUCOSE 73 mg/dL (75-110); POTASSIUM 3.9 mmol/L (3.6-5.0)
[2019-01-09] MEDS: INSULIN REG, HUMAN 100 UNIT/ML 3 ML VIAL (PYX) SUBCUT SCH ×4 (08:01→23:15)
[2019-01-09 08:37] LABS: ANION GAP 4 (5-19)
[2019-01-09 08:39] LABS: CARBON DIOXIDE 40 mmol/L (22-30)
[2019-01-09] MEDS: BUDESONIDE NEB 0.5 MG/2 ML AMPUL NEB SCH ×2 (09:12→19:35)
[2019-01-09] MEDS: LEVOFLOXACIN 750 MG/D5W RTU 750 MG/150 ML RTUPB IV SCH (09:43)
[2019-01-09] MEDS: ASPIRIN 81 MG TABLET, CHEWABLE PO SCH (09:46)
[2019-01-09] MEDS: LOSARTAN POTASSIUM 50 MG TABLET PO SCH (09:46)
[2019-01-09] MEDS: ENOXAPARIN SODIUM INJ 40 MG/0.4 ML DISP.SYRIN SUBCUT SCH (09:46)
[2019-01-09] MEDS: PREDNISONE 20 MG TABLET PO SCH (09:46)
[2019-01-09] MEDS: HYDROCHLOROTHIAZIDE 12.5 MG TABLET PO SCH (09:46)
[2019-01-09] MEDS: METOPROLOL SUCCINATE 50 MG TAB.SR.24H PO SCH (09:46)
[2019-01-09] MEDS: FLUTICASONE NASAL SPRAY 50 MCG/SPRY 120 SPRAY/16 GM NASL SCH ×2 (09:47→23:07)
[2019-01-09] MEDS: CHLORHEXIDINE GLUCONATE 0.12% ORAL RINSE 15 ML UDC MM SCH ×2 (09:47→17:01)
--- NOTE | 2019-01-09 12:10 | PDOC PROGRESS REPORT ---
Subjective Progress Note for:: 01/09/19 Subjective:: The patient is still having secretions. It is difficult to bring secretions up through the #4 Shiley. She is coughing up sputum at the back of her throat and manually suctioning with the [place]. She has been off of BiPAP for greater than 48 hours. She is stable. I have consulted surgery to change her back to a #6 cuffless with a goal of discharging home likely tomorrow. She will follow-up with her auditor medical claims Dr. Pan after discharge. Reason For Visit: ACUTE ON CHRONIC RESPIRATORY FAILURE,AECOPD Physical Exam Vital Signs: Temp Pulse Resp BP Pulse Ox 98.9 F 91 18 120/64 93 01/09/19 07:26 01/09/19 09:13 01/09/19 09:13 01/09/19 07:26 01/09/19 09:13 Intake & Output 01/08/19 01/09/19 01/10/19 06:59 06:59 06:59 Intake Total 1110 1310 150 Output Total 50 902 Balance 1060 408 150 Weight 68.2 kg 68.2 kg General appearance: PRESENT: no acute distress, cooperative, well-developed Head exam: PRESENT: atraumatic, normocephalic Ear exam: PRESENT: normal external ear exam. ABSENT: bleeding, drainage Mouth exam: PRESENT: moist, tongue midline Neck exam: PRESENT: tracheostomy - 4. Cuffed with balloon deflated. Intermittent air leak from around tracheostomy Respiratory exam: PRESENT: symmetrical, wheezes - Sporadic wheeze, other - Congested cough. ABSENT: accessory muscle use, rales Cardiovascular exam: PRESENT: RRR, +S1, +S2 GI/Abdominal exam: PRESENT: normal bowel sounds, soft. ABSENT: distended, tenderness Rectal exam: PRESENT: deferred Neurological exam: PRESENT: alert, awake, oriented to person, oriented to place, oriented to time, oriented to situation Psychiatric exam: PRESENT: appropriate affect. ABSENT: agitated, anxious Focused psych exam: ABSENT: delusional, restlessness Results Laboratory Results: 01/09/19 06:24 01/09/19 06:24 01/09/19 01/09/19 06:24 06:24 WBC 8.5 RBC 4.47 Hgb 12.3 Hct 38.1 MCV 85 MCH 27.5 MCHC 32.3 RDW 15.8 H Plt Count 172 Seg Neutrophils % 62.3 Sodium 139.0 Potassium 3.9 Chloride 95 L Carbon Dioxide 40 H* Anion Gap 4 L BUN 16 Creatinine 0.44 L Est GFR ( Amer) > 60 Glucose 73 L Calcium 8.7 01/06/19 09:57 Sweeney Catheter Urine Culture - Final NO GROWTH 2 DAYS 01/04/19 17:13 Troponin I < 0.012 Impressions: Chest X-Ray 01/05/19 08:12 IMPRESSION: Decreased aeration at the left lung base compared to study from November 2017, left basilar infiltrate may be present. Assessment and Plan - Diagnosis (1) Acute and chronic respiratory failure Qualifiers: Respiratory failure complication: hypoxia and hypercapnia Qualified Code(s) : J96.21 - Acute and chronic respiratory failure with hypoxia; J96.22 - Acute and chronic respiratory failure with hypercapnia Is this a current diagnosis for this admission?: Yes (2) COPD exacerbation Is this a current diagnosis for this admission?: Yes (3) Hypertension Qualifiers: Hypertension type: essential hypertension Qualified Code(s): I10 - Essential (primary) hypertension Is this a current diagnosis for this admission?: Yes (5) Hyperglycemia Is this a current diagnosis for this admission?: Yes (6) Pneumonia Qualifiers: Pneumonia type: aspiration pneumonia Aspiration pneumonia type: unspecified Laterality: unspecified laterality Lung location: unspecified part of lung Qualified Code(s): J69.0 - Pneumonitis due to inhalation of food and vomit Is this a current diagnosis for this admission?: Yes - Plan Summary Summary: 01/07/2019- Acute on chronic hypoxic/hypercapnic respiratory failure-patient required a change to a cuffed tube so that piece of BiPAP would be effective. She is resting with the balloon down at this time. She is worried since changing the sick so Shiley to a 4 with cuff was a little traumatic and she had some bleeding. I explained that she will likely be able to return to a cuffless trach when we are comfortable that she is stable from a respiratory standpoint. She does have an intractable cough. Continue duo nebs and budesonide. I have also ordered Chloraseptic spray for any throat irritation above the tracheostomy tube. We will continue her home medications for hypertension with parameters to hold for low blood pressure. 01/08/2019- The patient states that she feels back to her baseline. She uses a trach collar for oxygen supplementation at home. She is still worried about the cuffed trach eostomy tube but I explained that this can be swapped out later. She certainly is not coughing nearly as much. Continue current nebulizer treatments. Hyperglycemia-the patient is exhibiting elevated glucose levels. I believe this is related to her steroid doses. We will continue Accu-Cheks and sliding scale coverage. The patient is anxious to get home. She is set up for care of her tracheostomy already. I believe she is close to her baseline. I will refer the patient back to Dr. Hodges tomorrow as he is her primary care provider. We should also set up an appointment with Dr. Pan who is her auditor medical claims. 01/09/2019 The patient is doing well and has not been on BiPAP for 3 days. She still has secretions. She is still requires oxygen supplementation but she uses 3 L to 4 L at home. We will continue oxygen supplementation for the respiratory failure. She remains on levofloxacin for pneumonia. I would like to cap the tracheostomy and see how the patient tolerates it. She has been tolerating speaking valve without any difficulty. We will continue the accu-checks and sliding scale coverage for the diabetes. PT has been working with the patient as well. She will be going home with home health. After I initially saw the patient in the morning I had Dr. Mcmillan see the patient in consultation. My thought was to change the cuffed #4 Shiley to back to a #6 cuffless trach. The patient is still coughing up secretions. I was also going to institute a capping trial but there was no cap available. I went back and sat with the patient. We had a long discussion. We discussed the potential benefits of trying to change the trach when it was a difficult to downsize from 6-4. We discussed the possibility of ear nose and throat seeing the patient but there is no one senior production supervisor today. Her primary provider might be able to coordinate a follow-up with ENT immediately post discharge. It was decided that she would not have an attempt to change the tracheostomy in the OR tomorrow but defer and further discussed with Dr. Hodges. I did alert Dr. Mcmillan as well. - Time Time Spent with patient: 35 or more minutes Medications reviewed and adjusted accordingly: Yes Anticipated discharge: Home
--- NOTE | 2019-01-09 14:14 | PDOC CONSULTATION ---
Consultation Consult Date: 01/09/19 Attending physician:: SULAIMNA SHANKS Provider Consulted: MAUDE SINGH Consult reason:: Replace tracheostomy tube History of Present Illness Admission Date/PCP: 01/04/19 20:14 KIMI CANELA MD History of Present Illness: MITCH ORELLANA is a 69 year old female Who is been hospitalized for approximately 5 days and also more hospital for respiratory failure. Patient has a long history of advanced, end-stage COPD, status post operative tracheostomy [facility]. She was home with a non-cuffed #6 Shiley catheter by her report. Resented to the emergency department last week for respiratory distress and ventilatory support. Therefore the trach was switched over to a cuffed tube. This is performed by Dr. Spangler. Unfortunately a #6 could not be advanced safely so a #4 was placed into position. The patient did well from that intervention, and was eventually weaned off the ventilator. She is now on the floor, with the #4 Shiley cuffed tube still in position with the cuff down. She is phonating with a Passy-Pineda valve and is in no distress. Preparations are being made for her departure home soon and surgery was consulted for opinion regarding replacement of the #4 to a #6 Shiley. Patient has been followed by Dr. Goyal, milking machine technician, who apparently no longer has practicing privileges at [facility] Past Medical History Cardiac Medical History: Reports: Hypertension Denies: Coronary Artery Disease, Myocardial Infarction Pulmonary Medical History: Reports: Chronic Obstructive Pulmonary Disease (COPD), Pneumonia, Respiratory Failure Denies: Asthma, Bronchitis Neurological Medical History: Denies: Seizures Endocrine Medical History: Denies: Diabetes Mellitus Type 1, Diabetes Mellitus Type 2 GI Medical History: Reports: Gastroesophageal Reflux Disease Denies: Hepatitis, Hiatal Hernia Musculoskeltal Medical History: Reports: Arthritis Psychiatric Medical History: Reports: Depression Hematology: Past Surgical History Past Surgical History: Reports: Orthopedic Surgery, Other Denies: Hysterectomy, Mastectomy, Pacemaker Social History Smoking Status: Never Smoker Electronic Cigarette use?: No Frequency of Alcohol Use: Rare Hx Recreational Drug Use: No Drugs: None Hx Prescription Drug Abuse: No Family History Family History: None, Reviewed & Not Pertinent Parental Family History Reviewed: No Children Family History Reviewed: No Sibling(s) Family History Reviewed.: No Medication/Allergy Home Medications: Albuterol Sulfate [Ventolin 0.083% Neb 2.5 mg/3 ml Ampul] 1 vial NEB RTBID 01/05/19 Albuterol Sulfate [Ventolin Hfa 8 gm Mdi (1 Mdi/ER Disp)] 2 puff IH Q6HP PRN 01/05/19 Aspirin [Ecotrin 81 mg EC Tablet] 81 mg PO DAILY 01/05/19 Chlorhexidine Gluconate [Periogard 0.12% Oral Rinse 15 ml] 15 ml MM BID 01/05/19 Chlorpheniramine Maleate [Chlor-Trimeton 4 mg Tablet] 4 mg PO Q6 01/05/19 Cyanocobalamin (Vitamin B-12) [Vitamin B-12 1000 Mcg Tablet] 1,000 mcg SL DAILY 01/05/19 Ergocalciferol (Vitamin D2) [Drisdol] 50,000 unit PO [place]@1000 01/05/19 Glucosamine/MSM/Chondroitin A [Ldqxwfqqkql-Ikteu-ZIF Caplet] 1 each PO DAILY 01/05/19 Lorazepam [Ativan 0.5 mg Tablet] 0.5 mg PO Q4HP PRN 01/05/19 Losartan/Hydrochlorothiazide [Losartan-Hctz 50-12.5 mg Tab] 1 each PO DAILY 01/05/19 Metoprolol Succinate [Toprol XL 100 mg Tablet] 100 mg PO DAILY 01/05/19 Mirabegron [Myrbetriq] 25 mg PO QPM 01/05/19 Montelukast Sodium [Singulair 10 mg Tablet] 10 mg PO QPM 01/05/19 [place]-3 Fatty Acids/Fish Oil [Fish Oil 1,000 Mg Capsule] 2,000 mg PO DAILY 01/05/19 Quetiapine Fumarate [Seroquel] 25 mg PO QHS 01/05/19 Vitamin E 1,000 unit PO DAILY 01/05/19 Vortioxetine Hydrobromide [Brintellix] 10 mg PO DAILY 01/05/19 Allergies/Adverse Reactions: No Known Allergies Allergy (Verified 01/04/19 18:44) Review of Systems ROS unobtainable: Due to mental status Physical Exam Vital Signs: Temp Pulse Resp BP Pulse Ox 98.7 F 86 18 95/55 L 95 01/09/19 11:23 01/09/19 13:51 01/09/19 12:40 01/09/19 11:23 01/09/19 12:40 Intake & Output 01/08/19 01/09/19 01/10/19 06:59 06:59 06:59 Intake Total 1110 1310 250 Output Total 50 902 Balance 1060 408 250 Weight 68.2 kg 68.2 kg General appearance: PRESENT: other - No acute distress Head exam: PRESENT: other - Glasses on Eye exam: PRESENT: other - Masses on EOMs intact Ear exam: PRESENT: other Neck exam: PRESENT: tracheostomy - Trach in place, #4 cuffed Shiley, strapped into position; tracheostomy orifice without infection, bleeding, other Respiratory exam: PRESENT: rhonchi GI/Abdominal exam: PRESENT: soft Extremities exam: PRESENT: other - Contracted lower extremities Musculoskeletal exam: PRESENT: deformity Psychiatric exam: PRESENT: appropriate affect Results Laboratory Results: 01/09/19 06:24 01/09/19 06:24 01/09/19 01/09/19 06:24 06:24 WBC 8.5 RBC 4.47 Hgb 12.3 Hct 38.1 MCV 85 MCH 27.5 MCHC 32.3 RDW 15.8 H Plt Count 172 Seg Neutrophils % 62.3 Sodium 139.0 Potassium 3.9 Chloride 95 L Carbon Dioxide 40 H* Anion Gap 4 L BUN 16 Creatinine 0.44 L Est GFR ( Amer) > 60 Glucose 73 L Calcium 8.7 01/06/19 09:57 Sweeney Catheter Urine Culture - Final NO GROWTH 2 DAYS 01/04/19 17:13 Troponin I < 0.012 Impressions: Chest X-Ray 01/05/19 08:12 IMPRESSION: Decreased aeration at the left lung base compared to study from November 2017, left basilar infiltrate may be present. Assessment & Plan - Diagnosis (1) Tracheostomy in place Is this a current diagnosis for this admission?: Yes Plan: Impression: Tracheostomy in place, recently inserted 6 to 7 months ago at [facility], placed during this hospitalization due to [place] failure re quiring positive pressure ventilation. Patient clinically improved, she is now breathing humidified tent air over a uncuffed 4 Shiley with Passy-Pineda valve, phonating without distress. Recommendations: 1. Patient is clinically improved. Surgery was consulted for trach upstaging. An attempt was made last week to replace the uncuffed #6 trach with a cuffed trach and there was difficulty. If replacement trach desired, with a larger tube, this may be best done in the operating room. 2. Conversely, patient's clinical condition may be stable enough for her to be weaned off of the trach. We seek the advice of milking machine technician however Dr. Goyal is not available. I spoke with Dr. Shanks who will explore other milking machine technician options. We will be available for services if they are required. (2) COPD exacerbation Is this a current diagnosis for this admission?: Yes (4) Bilateral pneumonia Qualifiers: Pneumonia type: due to unspecified organism Lung location: unspecified part of lung Qualified Code(s): J18.9 - Pneumonia, unspecified organism - Time Time Spent: 50 to 70 Minutes Smoking Cessation Education: over 10 minutes Medications reviewed and adjusted accordingly: Yes Anticipated discharge: Home
[2019-01-09] MEDS: QUETIAPINE FUMARATE 25 MG TABLET PO SCH (23:07)
[2019-01-09] MEDS: MONTELUKAST SODIUM 10 MG TABLET PO SCH (23:07)
[2019-01-10] MEDS: IPRATROPIUM/ALBUTEROL 0.5-2.5 MG/3 ML AMPUL NEB SCH ×5 (04:06→21:05)
[2019-01-10] MEDS: CHLORPHENIRAMINE MALEATE 4 MG TABLET PO SCH ×4 (05:57→23:20)
[2019-01-10] MEDS: INSULIN REG, HUMAN 100 UNIT/ML 3 ML VIAL (PYX) SUBCUT SCH ×4 (08:28→23:20)
[2019-01-10] MEDS: BUDESONIDE NEB 0.5 MG/2 ML AMPUL NEB SCH ×2 (08:55→21:05)
[2019-01-10] MEDS: LOSARTAN POTASSIUM 50 MG TABLET PO SCH (09:51)
[2019-01-10] MEDS: HYDROCHLOROTHIAZIDE 12.5 MG TABLET PO SCH (09:52)
[2019-01-10] MEDS: PREDNISONE 20 MG TABLET PO SCH (09:52)
[2019-01-10] MEDS: ASPIRIN 81 MG TABLET, CHEWABLE PO SCH (09:52)
[2019-01-10] MEDS: METOPROLOL SUCCINATE 50 MG TAB.SR.24H PO SCH (09:52)
[2019-01-10] MEDS: FLUTICASONE NASAL SPRAY 50 MCG/SPRY 120 SPRAY/16 GM NASL SCH ×2 (09:53→23:20)
[2019-01-10] MEDS: LEVOFLOXACIN 750 MG/D5W RTU 750 MG/150 ML RTUPB IV SCH (09:53)
[2019-01-10] MEDS: CHLORHEXIDINE GLUCONATE 0.12% ORAL RINSE 15 ML UDC MM SCH ×2 (09:53→17:47)
[2019-01-10] MEDS: ENOXAPARIN SODIUM INJ 40 MG/0.4 ML DISP.SYRIN SUBCUT SCH (09:53)
--- NOTE | 2019-01-10 21:09 | PDOC PROGRESS REPORT ---
Subjective Progress Note for:: 01/10/19 Subjective:: Patient was admitted by the tunnel mucker, she was in the intensive care unit subsequently downgraded to IMCU floor, she has a tracheostomy with size #4 [place], the intent is to ultimately decannulated according to what she said, the transport corps officer is working with our outpatient with the intent to ultimately decannulate Reason For Visit: ACUTE ON CHRONIC RESPIRATORY FAILURE,AECOPD Physical Exam Vital Signs: Temp Pulse Resp BP Pulse Ox 98.9 F 89 18 145/70 H 97 01/10/19 19:41 01/10/19 19:41 01/10/19 19:41 01/10/19 19:41 01/10/19 19:41 Intake & Output 01/09/19 01/10/19 01/11/19 06:59 06:59 06:59 Intake Total 1310 930 Output Total 276 790 4850 Balance 408 630 -1000 Weight 68.2 kg 68.2 kg General appearance: PRESENT: no acute distress Eye exam: PRESENT: PERRLA Respiratory exam: PRESENT: clear to auscultation ryley Cardiovascular exam: PRESENT: +S1, +S2 GI/Abdominal exam: PRESENT: soft Results Laboratory Results: 01/09/19 06:24 01/09/19 06:24 01/04/19 19:58 Blood Blood Culture - Final NO GROWTH IN 5 DAYS 01/04/19 17:35 Blood Blood Culture - Final NO GROWTH IN 5 DAYS 01/04/19 17:13 Troponin I < 0.012 Impressions: Chest X-Ray 01/05/19 08:12 IMPRESSION: Decreased aeration at the left lung base compared to study from November 2017, left basilar infiltrate may be present. Assessment & Plan - Diagnosis (1) Hypercapnic acidosis Is this a current diagnosis for this admission?: Yes (2) Hypercapnic respiratory failure Qualifiers: Chronicity: acute Qualified Code(s): J96.02 - Acute respiratory failure with hypercapnia Is this a current diagnosis for this admission?: Yes (3) Chronic obstructive pulmonary disease Qualifiers: COPD type: unspecified COPD Qualified Code(s): J44.9 - Chronic obstructive pulmonary disease, unspecified Is this a current diagnosis for this admission?: Yes - Time Time Spent with patient: 35 or more minutes
[2019-01-10] MEDS: QUETIAPINE FUMARATE 25 MG TABLET PO SCH (23:20)
[2019-01-10] MEDS: MONTELUKAST SODIUM 10 MG TABLET PO SCH (23:20)
[2019-01-11] MEDS: IPRATROPIUM/ALBUTEROL 0.5-2.5 MG/3 ML AMPUL NEB SCH ×7 (00:37→23:51)
[2019-01-11] MEDS: CHLORPHENIRAMINE MALEATE 4 MG TABLET PO SCH ×3 (05:32→17:51)
[2019-01-11] MEDS: INSULIN REG, HUMAN 100 UNIT/ML 3 ML VIAL (PYX) SUBCUT SCH ×4 (08:08→22:16)
[2019-01-11] MEDS: BUDESONIDE NEB 0.5 MG/2 ML AMPUL NEB SCH ×2 (08:19→19:39)
[2019-01-11] MEDS: ASPIRIN 81 MG TABLET, CHEWABLE PO SCH (09:30)
[2019-01-11] MEDS: LOSARTAN POTASSIUM 50 MG TABLET PO SCH (09:30)
[2019-01-11] MEDS: METOPROLOL SUCCINATE 50 MG TAB.SR.24H PO SCH (09:30)
[2019-01-11] MEDS: HYDROCHLOROTHIAZIDE 12.5 MG TABLET PO SCH (09:30)
[2019-01-11] MEDS: PREDNISONE 20 MG TABLET PO SCH (09:30)
[2019-01-11] MEDS: CHLORHEXIDINE GLUCONATE 0.12% ORAL RINSE 15 ML UDC MM SCH ×2 (09:31→17:51)
[2019-01-11] MEDS: FLUTICASONE NASAL SPRAY 50 MCG/SPRY 120 SPRAY/16 GM NASL SCH ×2 (09:31→22:29)
[2019-01-11] MEDS: ENOXAPARIN SODIUM INJ 40 MG/0.4 ML DISP.SYRIN SUBCUT SCH (09:31)
[2019-01-11] MEDS ORDERED: LEVOFLOXACIN 750 MG TABLET PO SCH (10:00)
--- NOTE | 2019-01-11 12:57 | PDOC CONSULTATION ---
Consultation Consult Date: 01/11/19 Provider Consulted: RULA HERNANDEZ Consult reason:: Evaluation of tracheostomy site History of Present Illness Admission Date/PCP: 01/04/19 20:14 KIMI CANELA MD History of Present Illness: MITCH ORELLANA is a 69 year old female Otolaryngology service was asked to evaluate this patient. She had had a ostomy placed in June 2018. The reason is because of her respiratory compromise. And had a 6 Shiley that was placed. She is being followed by a pathologist who is Dr. Pan. According to the patient, her pathologist downsized her to a #4 Shiley with the anticipation of decannulation. Patient presented to the emergency room in respiratory distress and they attempted to change out the 4 Shiley with a cuffed 6 Shiley but were unsuccessful. Otolaryngology was consulted for revision of the tracheostomy site so that a 6 cuffed Shiley can be inserted. The patient contradicts this statement as she is saying that the hope is to downsize her tracheostomy with anticipation of decannulation. Patient is not in respiratory distress at this time. Past Medical History Cardiac Medical History: Reports: Hypertension Denies: Coronary Artery Disease, Myocardial Infarction Pulmonary Medical History: Reports: Chronic Obstructive Pulmonary Disease (COPD), Pneumonia, Respiratory Failure Denies: Asthma, Bronchitis Neurological Medical History: Denies: Seizures Endocrine Medical History: Denies: Diabetes Mellitus Type 1, Diabetes Mellitus Type 2 GI Medical History: Reports: Gastroesophageal Reflux Disease Denies: Hepatitis, Hiatal Hernia Musculoskeltal Medical History: Reports: Arthritis Psychiatric Medical History: Reports: Depression Hematology: Past Surgical History Past Surgical History: Reports: Orthopedic Surgery, Other Denies: Hysterectomy, Mastectomy, Pacemaker Social History Smoking Status: Never Smoker Electronic Cigarette use?: No Frequency of Alcohol Use: Rare Hx Recreational Drug Use: No Drugs: None Hx Prescription Drug Abuse: No Family History Family History: None, Reviewed & Not Pertinent Parental Family History Reviewed: No Children Family History Reviewed: No Sibling(s) Family History Reviewed.: No Medication/Allergy Home Medications: Albuterol Sulfate [Ventolin 0.083% Neb 2.5 mg/3 ml Ampul] 1 vial NEB RTBID 01/05/19 Albuterol Sulfate [Ventolin Hfa 8 gm Mdi (1 Mdi/ER Disp)] 2 puff IH Q6HP PRN 01/05/19 Aspirin [Ecotrin 81 mg EC Tablet] 81 mg PO DAILY 01/05/19 Chlorhexidine Gluconate [Periogard 0.12% Oral Rinse 15 ml] 15 ml MM BID 01/05/19 Chlorpheniramine Maleate [Chlor-Trimeton 4 mg Tablet] 4 mg PO Q6 01/05/19 Cyanocobalamin (Vitamin B-12) [Vitamin B-12 1000 Mcg Tablet] 1,000 mcg SL DAILY 01/05/19 Ergocalciferol (Vitamin D2) [Drisdol] 50,000 unit PO [place]ONO@1000 01/05/19 Glucosamine/MSM/Chondroitin A [Opwhqujceno-Xnxlr-FWQ Caplet] 1 each PO DAILY 01/05/19 Lorazepam [Ativan 0.5 mg Tablet] 0.5 mg PO Q4HP PRN 01/05/19 Losartan/Hydrochlorothiazide [Losartan-Hctz 50-12.5 mg Tab] 1 each PO DAILY 01/05/19 Metoprolol Succinate [Toprol XL 100 mg Tablet] 100 mg PO DAILY 01/05/19 Mirabegron [Myrbetriq] 25 mg PO QPM 01/05/19 Montelukast Sodium [Singulair 10 mg Tablet] 10 mg PO QPM 01/05/19 [place]-3 Fatty Acids/Fish Oil [Fish Oil 1,000 Mg Capsule] 2,000 mg PO DAILY 01/05/19 Quetiapine Fumarate [Seroquel] 25 mg PO QHS 01/05/19 Vitamin E 1,000 unit PO DAILY 01/05/19 Vortioxetine Hydrobromide [Brintellix] 10 mg PO DAILY 01/05/19 Allergies/Adverse Reactions: No Known Allergies Allergy (Verified 01/04/19 18:44) Review of Systems Constitutional: ABSENT: chills, fever(s), headache(s), weight gain, weight loss Eyes: ABSENT: visual disturbances Ears: ABSENT: hearing changes Cardiovascular: ABSENT: chest pain, dyspnea on exertion, edema, orthropnea, palpitations Respiratory: ABSENT: cough, hemoptysis Gastrointestinal: ABSENT: abdominal pain, constipation, diarrhea, hematemesis, hematochezia, nausea, vomiting Genitourinary: ABSENT: dysuria, hematuria Musculoskeletal: ABSENT: joint swelling Integumentary: ABSENT: rash, wounds Neurological: ABSENT: abnormal gait, abnormal speech, confusion, dizziness, foca l weakness, syncope Psychiatric: ABSENT: anxiety, depression, homidical ideation, suicidal ideation Endocrine: ABSENT: cold intolerance, heat intolerance, polydipsia, polyuria Hematologic/Lymphatic: ABSENT: easy bleeding, easy bruising Physical Exam Vital Signs: Temp Pulse Resp BP Pulse Ox 98.4 F 83 16 127/84 H 98 01/11/19 07:57 01/11/19 08:19 01/11/19 08:19 01/11/19 07:57 01/11/19 08:19 Intake & Output 01/10/19 01/11/19 01/12/19 06:59 06:59 06:59 Intake Total 930 100 Output Total 300 1200 Balance 630 -1100 Weight 68.2 kg 68 kg General appearance: PRESENT: no acute distress, well-developed, well-nourished Head exam: PRESENT: atraumatic, normocephalic, other Eye exam: PRESENT: conjunctiva pink, EOMI, PERRLA. ABSENT: scleral icterus Mouth exam: PRESENT: moist, tongue midline Neck exam: PRESENT: tracheostomy - A capped tracheostomy tube is in place. Respiratory exam: PRESENT: clear to auscultation ryley. ABSENT: rales, rhonchi, wheezes Cardiovascular exam: PRESENT: RRR. ABSENT: diastolic murmur, rubs, systolic murmur Vascular exam: PRESENT: normal capillary refill GI/Abdominal exam: PRESENT: normal bowel sounds, soft. ABSENT: distended, guarding, mass, organolmegaly, rebound, tenderness Rectal exam: PRESENT: deferred Extremities exam: PRESENT: full ROM. ABSENT: calf tenderness, clubbing, pedal edema Neurological exam: PRESENT: alert, awake, oriented to person, oriented to place, oriented to time, oriented to situation, CN II-XII grossly intact. ABSENT: motor sensory deficit Psychiatric exam: PRESENT: appropriate affect, normal mood. ABSENT: homicidal ideation, suicidal ideation Skin exam: PRESENT: dry, intact, warm. ABSENT: cyanosis, rash Results Laboratory Results: 01/09/19 06:24 01/09/19 06:24 01/06/19 10:59 Blood Blood Culture - Final NO GROWTH IN 5 DAYS 01/04/19 17:13 Troponin I < 0.012 Impressions: Chest X-Ray 01/05/19 08:12 IMPRESSION: Decreased aeration at the left lung base compared to study from November 2017, left basilar infiltrate may be present. Assessment & Plan - Diagnosis (1) COPD exacerbation Is this a current diagnosis for this admission?: Yes (2) Hypercapnic respiratory failure Qualifiers: Chronicity: acute Qualified Code(s): J96.02 - Acute respiratory failure with hypercapnia Is this a current diagnosis for this admission?: Yes (3) Hyperglycemia Is this a current diagnosis for this admission?: Yes (5) Tracheostomy in place Is this a current diagnosis for this admission?: Yes Plan: The plan is to contact Dr. Pan regarding the plan for possible decannulation. Will not proceed with revision of the tracheostomy site at this time. (6) Acute and chronic respiratory failure Qualifiers: Respiratory failure complication: hypoxia and hypercapnia Qualified Code(s): J96.21 - Acute and chronic respiratory failure with hypoxia; J96.22 - Acute and chronic respiratory failure with hypercapnia Is this a current diagnosis for this admission?: Yes - Time Time Spent: 30 to 50 Minutes
--- NOTE | 2019-01-11 21:54 | PDOC PROGRESS REPORT ---
Subjective Progress Note for:: 01/11/19 Subjective:: I saw the patient by the bedside, I reviewed the notes of the ENT, the ENT notes stated that Dr. Pan the treating supervisor fishing change the tracheostomy Shiley to #4 outpatient but this never happened, when patient was admitted she had cough since Shiley in place this apparently got dislodged in the emergency room and could not be replaced subsequently #4 Shiley was inserted. Patient seems to be relatively doing well on the present tracheostomy tube Shiley #4 could be discharged home in the morning with present setting Reason For Visit: ACUTE ON CHRONIC RESPIRATORY FAILURE,AECOPD Physical Exam Vital Signs: Temp Pulse Resp BP Pulse Ox 99.1 F 107 H 18 120/56 L 97 01/11/19 16:09 01/11/19 19:40 01/11/19 19:40 01/11/19 16:09 01/11/19 19:40 Intake & Output 01/10/19 01/11/19 01/12/19 06:59 06:59 06:59 Intake Total 930 100 Output Total 300 1200 Balance 630 -1100 Weight 68.2 kg 68 kg 68 kg General appearance: PRESENT: no acute distress Eye exam: PRESENT: PERRLA Neck exam: PRESENT: tracheostomy Respiratory exam: PRESENT: clear to auscultation ryley Cardiovascular exam: PRESENT: +S1, +S2 GI/Abdominal exam: PRESENT: soft Neurological exam: PRESENT: alert Results Laboratory Results: 01/09/19 06:24 01/09/19 06:24 01/06/19 15:41 Blood Blood Culture - Final NO GROWTH IN 5 DAYS 01/06/19 10:59 Blood Blood Culture - Final NO GROWTH IN 5 DAYS 01/04/19 17:13 Troponin I < 0.012 Impressions: Chest X-Ray 01/05/19 08:12 IMPRESSION: Decreased aeration at the left lung base compared to study from November 2017, left basilar infiltrate may be present. Assessment & Plan - Diagnosis (1) Hypercapnic acidosis Is this a current diagnosis for this admission?: Yes (2) Hypercapnic respiratory failure Qualifiers: Chronicity: acute Qualified Code(s): J96.02 - Acute respiratory failure with hypercapnia Is this a current diagnosis for this admission?: Yes (3) Chronic obstructive pulmonary disease Qualifiers: COPD type: unspecified COPD Qualified Code(s): J44.9 - Chronic obstructive pulmonary disease, unspecified Is this a current diagnosis for this admission?: Yes - Time Time Spent with patient: 35 or more minutes
--- NOTE | 2019-01-11 22:04 | PDOC DISCHARGE SUMMARY ---
Impression - Admit/DC Date/PCP Admission Date/Primary Care Provider: 01/04/19 20:14 KIMI CANELA MD Discharge Date: 01/12/19 - Discharge Diagnosis (1) Hypercapnic respiratory failure Is this a current diagnosis for this admission?: Yes (2) Hypercapnic acidosis Is this a current diagnosis for this admission?: Yes (3) Chronic obstructive pulmonary disease Is this a current diagnosis for this admission?: Yes - Assessment Summary: 01/07/2019- Acute on chronic hypoxic/hypercapnic respiratory failure-patient required a change to a cuffed tube so that piece of BiPAP would be effective. She is resting with the balloon down at this time. She is worried since changing the sick so Shiley to a 4 with cuff was a little traumatic and she had some bleeding. I explained that she will likely be able to return to a cuffless trach when we are comfortable that she is stable from a respiratory standpoint. She does have an intractable cough. Continue duo nebs and budesonide. I have also ordered Chloraseptic spray for any throat irritation above the tracheostomy tube. We will continue her home medications for hypertension with parameters to hold for low blood pressure. 01/08/2019- The patient states that she feels back to her baseline. She uses a trach collar for oxygen supplementation at home. She is still worried about the cuffed tracheostomy tube but I explained that this can be swapped out later. She certainly is not coughing nearly as much. Continue current nebulizer treatments. Hyperglycemia-the patient is exhibiting elevated glucose levels. I believe this is related to her steroid doses. We will continue Accu-Cheks and sliding scale coverage. The patient is anxious to get home. She is set up for care of her tracheostomy already. I believe she is close to her baseline. I will refer the patient back to Dr. Canela tomorrow as he is her primary care provider. We should also set up an appointment with Dr. Garcia who is her videotape sales representative. 01/09/2019 The patient is doing well and has not been on BiPAP for 3 days. She still has secretions. She is still requires oxygen supplementation but she uses 3 L to 4 L at home. We will continue oxygen supplementation for the respiratory failure. She remains on levofloxacin for pneumonia. I would like to cap the tracheostomy and see how the patient tolerates it. She has been tolerating speaking valve without any difficulty. We will continue the accu-checks and sliding scale coverage for the diabetes. PT has been working with the patient as well. She will be going home with home health. After I initially saw the patient in the morning I had Dr. Mcmillan see the patient in consultation. My thought was to change the cuffed #4 Shiley to back to a #6 cuffless trach. The patient is still coughing up secretions. I was also going to institute a capping trial but there was no cap available. I went back and sat with the patient. We had a long discussion. We discussed the potential benefits of trying to change the trach when it was a difficult to downsize from 6-4. We discussed the possibility of ear nose and throat seeing the patient but there is no one precision mechanical instrument maker today. Her primary provider might be able to coordinate a follow-up with ENT immediately post discharge. It was decided that she would not have an attempt to change the tracheostomy in the OR tomorrow but defer and further discussed with Dr. Canela. I did alert Dr. Mcmillan as well. - Additional Information Referrals: ALPA GARCIA MD [ACTIVE STAFF] - 01/23/19 3:00 pm KIMI CANELA MD [Primary Care Provider] - 01/20/19 9:30 am Prescriptions: Prednisone [Deltasone 20 mg Tablet] 20 mg PO DAILY #4 tablet Fluticasone/Umeclidin/Vilanter [Trelegy 100-62.5-25 Mcg Ellipta 14 Dose/Dpi] 1 each .ROUTE DAILY #2 inhaler Home Medications: Albuterol Sulfate [Ventolin 0.083% Neb 2.5 mg/3 mL Ampul] 1 vial NEB RTBID 01/05/19 Albuterol Sulfate [Ventolin Hfa 8 gm Mdi (1 Mdi/ER Disp)] 2 puff IH Q6HP PRN 01/05/19 Aspirin [Ecotrin 81 mg EC Tablet] 81 mg PO DAILY 01/05/19 Chlorhexidine Gluconate [Periogard 0.12% Oral Rinse 15 ml] 15 ml MM BID 01/05/19 Chlorpheniramine Maleate [Chlor-Trimeton 4 mg Tablet] 4 mg PO Q6 01/05/19 Cyanocobalamin (Vitamin B-12) [Vitamin B-12 1000 mcg Tablet] 1,000 mcg SL DAILY 01/05/19 Ergocalciferol (Vitamin D2) [Drisdol] 50,000 unit PO LONDONO@1000 01/05/19 Glucosamine/MSM/Chondroitin A [Slysndimmlp-Gxczr-ERA Caplet] 1 each PO DAILY 01/05/19 Lorazepam [Ativan 0.5 mg Tablet] 0.5 mg PO Q4HP PRN 01/05/19 Losartan/Hydrochlorothiazide [Losartan-Hctz 50-12.5 mg Tab] 1 each PO DAILY 01/05/19 Metoprolol Succinate [Toprol XL 100 mg Tablet] 100 mg PO DAILY 01/05/19 Mirabegron [Myrbetriq] 25 mg PO QPM 01/05/19 Montelukast Sodium [Singulair 10 mg Tablet] 10 mg PO QPM 01/05/19 Gaylord-3 Fatty Acids/Fish Oil [Fish Oil 1,000 mg Capsule] 2,000 mg PO DAILY 01/05/19 Quetiapine Fumarate [Seroquel] 25 mg PO QHS 01/05/19 Vitamin E 1,000 unit PO DAILY 01/05/19 Vortioxetine Hydrobromide [Trintellix] 10 mg PO DAILY 01/05/19 Fluticasone/Umeclidin/Vilanter [Trelegy 100-62.5-25 Mcg Ellipta 14 Dose/Dpi] 1 each .ROUTE DAILY #2 inhaler 01/11/19 Prednisone [Deltasone 20 mg Tablet] 20 mg PO DAILY #4 tablet 01/11/19 History of Present Illiness History of Present Illness: MITCH ORELLANA is a 69 year old female, She was admitted on 01/05/2019, when she presented with respiratory failure, on admission the arterial carbon dioxide was more than 90 she has uncuffed trach, this was changed to cuffed trach and she was placed on the respirator subsequently stabilized then transferred to the floor Hospital Course Hospital Course: Patient was admitted for the management of acute hypercapnic respiratory failure she has a tracheostomy uncuffed trach this was changed to cuffed trach. When she presented she had a #6 Shiley, this was changed to #4 Shiley because she had underlining COPD. She was initially managed by the hospitalist, ultimately transferred to my service, patient is stable could be discharged home today Physical Exam Vital Signs: Temp Pulse Resp BP Pulse Ox 99.1 F 107 H 18 120/56 L 97 01/11/19 16:09 01/11/19 19:40 01/11/19 19:40 01/11/19 16:09 01/11/19 19:40 Intake & Output 01/10/19 01/11/19 01/12/19 06:59 06:59 06:59 Intake Total 930 100 Output Total 300 1200 Balance 630 -1100 Weight 68.2 kg 68 kg 68 kg General appearance: PRESENT: no acute distress Eye exam: PRESENT: PERRLA Neck exam: PRESENT: tracheostomy Respiratory exam: PRESENT: clear to auscultation ryley Cardiovascular exam: PRESENT: +S1, +S2 GI/Abdominal exam: PRESENT: soft Neurological exam: PRESENT: alert Results Laboratory Results: WBC 8.5 10^3/uL (4.0-10.5) 01/09/19 06:24 RBC 4.47 10^6/uL (3.72-5.28) 01/09/19 06:24 Hgb 12.3 g/dL (12.0-15.5) 01/09/19 06:24 Hct 38.1 % (36.0-47.0) 01/09/19 06:24 MCV 85 fl (80-97) 01/09/19 06:24 MCH 27.5 pg (27.0-33.4) 01/09/19 06:24 MCHC 32.3 g/dL (32.0-36.0) 01/09/19 06:24 RDW 15.8 % (11.5-14.0) H 01/09/19 06:24 Plt Count 172 10^3/uL (150-450) 01/09/19 06:24 Lymph % (Auto) 25.4 % (13-45) 01/09/19 06:24 [place] % (Auto) 10.5 % (3-13) 01/09/19 06:24 Eos % (Auto) 1.7 % (0-6) 01/09/19 06:24 Baso % (Auto) 0.1 % (0-2) 01/09/19 06:24 Absolute Neuts (auto) 5.3 10^3/uL (1.7-8.2) 01/09/19 06:24 Absolute Lymphs (auto) 2.2 10^3/uL (0.5-4.7) 01/09/19 06:24 Absolute Monos (auto) 0.9 10^3/uL (0.1-1.4) 01/09/19 06:24 Absolute Eos (auto) 0.1 10^3/uL (0.0-0.6) 01/09/19 06:24 Absolute Basos (auto) 0.0 10^3/uL (0.0-0.2) 01/09/19 06:24 Total Counted 100 01/07/19 04:49 Seg Neutrophils % 62.3 % (42-78) 01/09/19 06:24 Seg Neuts % (Manual) 87 % (42-78) H 01/07/19 04:49 Band Neutrophils % 1 % (3-5) L 01/07/19 04:49 Lymphocytes % (Manual) 8 % (13-45) L 01/07/19 04:49 Monocytes % (Manual) 4 % (3-13) 01/07/19 04:49 Eosinophils % (Manual) 0 % (0-6) 01/07/19 04:49 Basophils % (Manual) 0 % (0-2) 01/07/19 04:49 Abs Neuts (Manual) 12.4 10^3/uL (1.7-8.2) H 01/07/19 04:49 Abs Lymphs (Manual) 1.1 10^3/uL (0.5-4.7) 01/07/19 04:49 Abs Monocytes (Manual) 0.6 10^3/uL (0.1-1.4) 01/07/19 04:49 Absolute Eos (Manual) 0.0 10^3/uL (0.0-0.6) 01/07/19 04:49 Abs Basophils (Manual) 0.0 10^3/uL (0.0-0.2) 01/07/19 04:49 Platelet Comment DECREASED 01/07/19 04:49 Hypochromasia 1+ 01/07/19 04:49 Anisocytosis 1+ 01/07/19 04:49 Carbonic Acid 1.03 mmol/L (1.05-1.35) L 01/05/19 08:30 HCO3/H2CO3 Ratio 29:1 01/05/19 08:30 ABG pH 7.56 (7.35-7.45) H 01/05/19 08:30 ABG pCO2 34.1 mmHg (35-45) L 01/05/19 08:30 ABG pO2 67.2 mmHg (80-100) L 01/05/19 08:30 ABG HCO3 30.1 mmol/L (20-24) H 01/05/19 08:30 ABG Total CO2 31.2 mmol/L (21-25) H 01/05/19 08:30 ABG O2 Saturation 95.7 % (94-98) 01/05/19 08:30 ABG Base Excess 7.8 mmol/L 01/05/19 08:30 FiO2 35% 01/05/19 08:30 Sodium 139.0 mmol/L (137-145) 01/09/19 06:24 Potassium 3.9 mmol/L (3.6-5.0) 01/09/19 06:24 Chloride 95 mmol/L (98-107) L 01/09/19 06:24 Carbon Dioxide 40 mmol/L (22-30) H* 01/09/19 06:24 Anion Gap 4 (5-19) L 01/09/19 06:24 BUN 16 mg/dL (7-20) 01/09/19 06:24 Creatinine 0.44 mg/dL (0.52-1.25) L 01/09/19 06:24 Est GFR ( Amer) > 60 (>60) 01/09/19 06:24 Est GFR (MDRD) Non-Af > 60 (>60) 01/09/19 06:24 Glucose 73 mg/dL (75-110) L 01/09/19 06:24 POC Glucose 151 mg/dL (70-110) H 01/11/19 16:08 Lactic Acid < 0.5 mmol/L (0.7-2.1) L 01/04/19 17:35 Calcium 8.7 mg/dL (8.4-10.2) 01/09/19 06:24 Total Bilirubin 0.4 mg/dL (0.2-1.3) 01/04/19 17:13 Direct Bilirubin 0.1 mg/dL (0.0-0.4) 01/04/19 17:13 Neonat Total Bilirubin Not Reportable 01/04/19 17:13 Neonat Direct Bilirubin Not Reportable 01/04/19 17:13 Neonat Indirect Bili Not Reportable 01/04/19 17:13 AST 18 U/L (14-36) 01/04/19 17:13 ALT 14 U/L (<35) 01/04/19 17:13 Alkaline Phosphatase 105 U/L (38-126) 01/04/19 17:13 Troponin I < 0.012 ng/mL 01/04/19 17:13 Total Protein 7.1 g/dL (6.3-8.2) 01/04/19 17:13 Albumin 4.0 g/dL (3.5-5.0) 01/04/19 17:13 Urine Color YELLOW 01/06/19 09:57 Urine Appearance CLEAR 01/06/19 09:57 Urine pH 6.0 (5.0-9.0) 01/06/19 09:57 Ur Specific [place] 1.016 01/06/19 09:57 Urine Protein 30 mg/dL (NEGATIVE) H 01/06/19 09:57 Urine Glucose (UA) NEGATIVE mg/dL (NEGATIVE) 01/06/19 09:57 Urine Ketones NEGATIVE mg/dL (NEGATIVE) 01/06/19 09:57 Urine Blood LARGE (NEGATIVE) H 01/06/19 09:57 Urine Nitrite NEGATIVE (NEGATIVE) 01/06/19 09:57 Urine Bilirubin NEGATIVE (NEGATIVE) 01/06/19 09:57 Urine Urobilinogen NEGATIVE mg/dL (<2.0) 01/06/19 09:57 Ur Leukocyte Esterase NEGATIVE (NEGATIVE) 01/06/19 09:57 Urine WBC (Auto) 3 /HPF 01/06/19 09:57 Urine RBC (Auto) 114 /HPF 01/06/19 09:57 U Hyaline Cast (Auto) 1 /LPF 01/06/19 09:57 Urine Bacteria (Auto) 3+ /HPF 01/04/19 17:53 Squamous Epi Cells Auto <1 /HPF 01/04/19 17:53 Uric Acid Cryst (Auto) FEW /HPF 01/06/19 09:57 Urine Mucus (Auto) OCC /LPF 01/06/19 09:57 Urine Ascorbic Acid NEGATIVE (NEGATIVE) 01/06/19 09:57 01/04/19 17:13 Troponin I < 0.012 Impressions: Chest X-Ray 01/04/19 00:00 IMPRESSION: 1. Tracheostomy cannula in grossly satisfactory position. 2. Stable appearance of the chest. Chest X-Ray 01/04/19 17:25 IMPRESSION: Stable chronic changes. Chest X-Ray 01/05/19 08:12 IMPRESSION: Decreased aeration at the left lung base compared to study from November 2017, left basilar infiltrate may be present. Stroke Is this a Stroke Patient?: No Stroke Pt being discharged on Anti-thrombolytic therapy?: No Reason(s) for not prescribing Anti-thrombolytic therapy:: Not indicated Stroke Pt being discharged on Anti-coagulation therapy?: No Reason(s) for not prescribing Anti-coagulation therapy:: Not indicated Stroke Pt being discharged on Statins?: No Reason(s) for not prescribing Statins therapy:: Not indicated Acute Heart Failure - Is this a Heart Failure Patient?: No Follow-up Appointment scheduled within 7 days?: Yes
[2019-01-11] MEDS: MONTELUKAST SODIUM 10 MG TABLET PO SCH (22:23)
[2019-01-11] MEDS: QUETIAPINE FUMARATE 25 MG TABLET PO SCH (22:23)
[2019-01-12] MEDS: CHLORPHENIRAMINE MALEATE 4 MG TABLET PO SCH ×3 (00:57→13:10)
[2019-01-12] MEDS: IPRATROPIUM/ALBUTEROL 0.5-2.5 MG/3 ML AMPUL NEB SCH ×3 (04:23→12:28)
[2019-01-12] MEDS: BUDESONIDE NEB 0.5 MG/2 ML AMPUL NEB SCH (08:08)
[2019-01-12] MEDS: INSULIN REG, HUMAN 100 UNIT/ML 3 ML VIAL (PYX) SUBCUT SCH ×2 (08:11→11:45)
[2019-01-12] MEDS: METOPROLOL SUCCINATE 50 MG TAB.SR.24H PO SCH (09:44)
[2019-01-12] MEDS: LOSARTAN POTASSIUM 50 MG TABLET PO SCH (09:44)
[2019-01-12] MEDS: PREDNISONE 20 MG TABLET PO SCH (09:44)
[2019-01-12] MEDS: HYDROCHLOROTHIAZIDE 12.5 MG TABLET PO SCH (09:45)
[2019-01-12] MEDS: ENOXAPARIN SODIUM INJ 40 MG/0.4 ML DISP.SYRIN SUBCUT SCH (09:45)
[2019-01-12] MEDS: CHLORHEXIDINE GLUCONATE 0.12% ORAL RINSE 15 ML UDC MM SCH (09:45)
[2019-01-12] MEDS: FLUTICASONE NASAL SPRAY 50 MCG/SPRY 120 SPRAY/16 GM NASL SCH (09:45)
[2019-01-12] MEDS: ASPIRIN 81 MG TABLET, CHEWABLE PO SCH (09:45)
[2019-01-12 10:57] VITALS: BP 149/86
== END 2019-01-12 14:42 | disposition home health service (06) | DRG 207 ==
LOC: ER 17:01 → EH 20:14 → ICU 01-05 02:58 → 3N 01-06 13:12
PROVIDERS: ADMIT Internal Medicine; ATTEND Internal Medicine
PROC: 5A1955Z Respiratory Ventilation, Greater than 96 Consecutive Hours (ICD-10-PCS; principal; 2019-01-04)
PROC: 0B21XFZ Change Tracheostomy Device in Trachea, External Approach (ICD-10-PCS; 2019-01-04)
DX: J96.22 Acute and chronic respiratory failure with hypercapnia (principal); J69.0 Pneumonitis due to inhalation of food and vomit; J44.1 Chronic obstructive pulmonary disease with (acute) exacerbation; N39.0 Urinary tract infection, site not specified; I10 Essential (primary) hypertension; K21.9 Gastro-esophageal reflux disease without esophagitis; F32.9 Major depressive disorder, single episode, unspecified; G14 Postpolio syndrome; R73.9 Hyperglycemia, unspecified; Z99.81 Dependence on supplemental oxygen; Z79.899 Other long term (current) drug therapy; Z79.82 Long term (current) use of aspirin; Z79.4 Long term (current) use of insulin; Z93.0 Tracheostomy status
CPT/HCPCS: 36415; 36600; 71045; 80048; 80053; 81001; 82803; 82962; 83605; 84484; 85025; 85027; 87040; 87086; 93005; 93010; 94002; 94003; 94640; 96365; 99291; J1650; J1815; J1956; J2060; J2250; J2543; J2930; J3010; J3490; J7030; J7512; J7620; L8504

== ENCOUNTER 2019-02-27 13:51 | Observation (INO) | payer MEDICARE, MEDICAID ==
[2019-02-27] MEDS ORDERED: NORMAL SALINE 1000 ML 1,000 ML IV PRN (14:32)
[2019-02-27 15:16] LABS: ARTERIAL BLOOD BASE EXCESS 16.6 mmol/L; ARTERIAL BLOOD H2CO3 3.54 mmol/L (1.05-1.35); ARTERIAL BLOOD HCO3 49.1 mmol/L (20-24); ARTERIAL BLOOD O2 SATURATION 99.2 % (94-98); ARTERIAL BLOOD PH 7.24 (7.35-7.45); ARTERIAL BLOOD PO2 228.3 mmHg (80-100); ARTERIAL BLOOD TOTAL CO2 52.7 mmol/L (21-25)
[2019-02-27 15:17] LABS: ARTERIAL BLOOD FIO2 5L
[2019-02-27 15:19] LABS: ARTERIAL BLOOD PCO2 117.7 mmHg (35-45)
[2019-02-27 16:09] LABS: ABSOLUTE EOSINOPHILS # (AUTO) 0.2 10^3/uL (0.0-0.6); ABSOLUTE MONOCYTES (AUTO) 0.5 10^3/uL (0.1-1.4); ABSOLUTE NEUT (AUTO) 3.4 10^3/uL (1.7-8.2); BASOPHILS % (AUTO) 0.6 % (0-2); EOSINOPHILS % (AUTO) 3.2 % (0-6); HEMATOCRIT 35.3 % (36.0-47.0); HEMOGLOBIN 11.4 g/dL (12.0-15.5); LYMPHOCYTES % (AUTO) 19.2 % (13-45); MEAN CORPUSCULAR HGB CONC 32.2 g/dL (32.0-36.0); MEAN CORPUSCULAR VOLUME 87 fl (80-97); MONOCYTES % (AUTO) 10.2 % (3-13); PLATELET COUNT 186 10^3/uL (150-450); RED BLOOD COUNT 4.06 10^6/uL (3.72-5.28); RED CELL DISTRIBUTION WIDTH 15.1 % (11.5-14.0); SEGMENTED NEUTROPHILS % (AUTO) 66.8 % (42-78); TOTAL CELLS COUNTED % (AUTO) 100 %; WHITE BLOOD COUNT 5.1 10^3/uL (4.0-10.5)
--- NOTE | 2019-02-27 16:29 | RADIOLOGY REPORT (SQ) ---
EXAM DESCRIPTION: CT ABD/PELVIS WITH IV ONLY COMPLETED DATE/TIME: 02/27/2019 3:57 pm REASON FOR STUDY: Urinary Retention and Hypoxemia R09.02 HYPOXEMIA R33.8 OTHER RETENTION OF URINE COMPARISON: None. TECHNIQUE: CT scan of the abdomen and pelvis performed using helical scanning technique with dynamic intravenous contrast injection. No oral contrast. Images reviewed with lung, soft tissue, and bone windows. Reconstructed coronal and sagittal MPR images reviewed. Delayed images for evaluation of the urinary system also acquired. All images stored on PACS. All CT scanners at this facility use dose modulation, iterative reconstruction, and/or weight based d osing when appropriate to reduce radiation dose to as low as reasonably achievable (ALARA). [facility]: Dose Right [facility]: CareDose [facility]: Dose Right [facility]: Teradose 4D [facility]: [employer] CONTRAST TYPE AND DOSE: contrast/concentration: Isovue 350.00 mg/ml; Total Contrast Delivered: 74.0 ml; Total Saline Delivered: 67.0 ml RENAL FUNCTION: Creatinine 0.5 area RADIATION DOSE: CT Rad equipment meets quality standard of care and radiation dose reduction techniq ues were employed. CTDIvol: 10.4 - 10.6 mGy. DLP: 968 mGy-cm.. LIMITATIONS: None. FINDINGS: LOWER CHEST: Basilar atelectasis/ scarring. No nodules or infiltrates. LIVER: Normal size. No masses. No dilated ducts. SPLEEN: Normal size. No focal lesions. PANCREAS: No masses. No significant calcifications. No adjacent inflammation or peripancreatic fluid collections. Pancreatic duct not dilated. GALLBLADDER: No identified stones by CT criteria. No inflammatory changes to suggest cholecystitis. ADRENAL GLANDS: No significant masses or asymmetry. RIGHT KIDNEY AND URETER: No solid masses. No significant calcifications. No hydronephrosis or hyd roureter. LEFT KIDNEY AND URETER: No solid masses. No significant calcifications. No hydronephrosis or hydr oureter. AORTA AND VESSELS: No aneurysm. No dissection. Renal arteries, SMA, celiac without stenosis. RETROPERITONEUM: No retroperitoneal adenopathy, hemorrhage or masses. BOWEL AND PERITONEAL CAVITY: No masses or inflammatory changes. No free fluid or peritoneal masses. APPENDIX: Not visualized. PELVIS: No mass. No free fluid. Normal bladder. ABDOMINAL WALL: No masses. No hernias. BONES: Severe scoliosis with surgical changes and hardware. OTHER: No other significant finding. IMPRESSION: NO SIGNIFICANT OR ACUTE FINDING IN THE ABDOMEN OR PELVIS ON CT SCAN WITH IV CONTRAST. S EVERE SCOLIOSIS WITH SURGICAL CHANGES AND HARDWARE. TECHNICAL DOCUMENTATION: JOB ID: [id number] Quality ID # [id number]: Final reports with documentation of one or more dose reduction techniques (e.g., Au tomated exposure control, adjustment of the mA and/or kV according to patient size, use of iterative reconstruction technique) 2010 [employer]- All Rights Reserved Reading location - IP/workstation name: [email or web address]
--- NOTE | 2019-02-27 16:31 | RADIOLOGY REPORT (SQ) ---
EXAM DESCRIPTION: CHEST 2 VIEWS COMPLETED DATE/TIME: 02/27/2019 3:27 pm REASON FOR STUDY: hypoxemia COMPARISON: 01/05/2019. EXAM PARAMETERS: NUMBER OF VIEWS: two views TECHNIQUE: Digital Frontal and Lateral radiographic views of the chest acquired. RADIATION DOSE: NA LIMITATIONS: none FINDINGS: LUNGS AND PLEURA: Probable basilar atelectasis. No pleural effusion or pneumothorax. MEDIASTINUM AND HILAR STRUCTURES: No masses or contour abnormalities. HEART AND VASCULAR STRUCTURES: Cardiomegaly. BONES: Severe chronic changes the spine. HARDWARE: Tracheostomy tube. Spinal hardware. OTHER: No other significant finding. IMPRESSION: CARDIOMEGALY. PROBABLE BASILAR ATELECTASIS. NO SIGNIFICANT INTERVAL CHANGE. TECHNICAL DOCUMENTATION: JOB ID: [id number] [employer]- All Rights Reserved Reading location - IP/workstation name: [email or web address]
[2019-02-27 16:37] LABS: ALBUMIN 3.6 g/dL (3.5-5.0); ALKALINE PHOSPHATASE 85 U/L (38-126); ASPARTATE AMINO TRANSFERASE 16 U/L (14-36); BILIRUBIN,DIRECT 0.1 mg/dL (0.0-0.4); BILIRUBIN,TOTAL 0.3 mg/dL (0.2-1.3); BLOOD UREA NITROGEN 12 mg/dL (7-20); CALCIUM 8.8 mg/dL (8.4-10.2); CHLORIDE 87 mmol/L (98-107); GLUCOSE 113 mg/dL (75-110); POTASSIUM 4.3 mmol/L (3.6-5.0); TOTAL PROTEIN 6.1 g/dL (6.3-8.2)
[2019-02-27 16:45] LABS: ANION GAP 8 (5-19); CARBON DIOXIDE 38 mmol/L (22-30)
--- NOTE | 2019-02-27 20:37 | PDOC H&P ---
History of Present Illness Admission Date/PCP: 02/27/19 13:51 KIMI CANELA MD History of Present Illness: MITCH ORELLANA is a 69 year old female, She has chronic respiratory failure on home oxygen with a tracheostomy tube, she came to the office today with the home health nurse and the sister for evaluation of urinary retention, hypoxemia, I felt it is best to admit patient for observation and evaluation of her symptoms, a stat CAT scan of the abdomen and pelvis with IV contrast was obtained it was negative there was no evidence of hydronephrosis, there was no full bladder, the hemogram was normal the chemistry was normal at the ABG on FiO2 of 5 L, pH 7.24 PCO2 117, PO2 228.3, patient was alert oriented she was not stuporous, the ABG suggests loss of hypoxic drive because of the high FiO2, the FiO2 was reduced to 2 L, and patient is stable not in any distress she does not require any noninvasive positive pressure ventilation or any mechanical ventilation. Patient was brought in for observation she will be discharged home Past Medical History Cardiac Medical History: Reports: Hypertension Pulmonary Medical History: Reports: Chronic Obstructive Pulmonary Disease (COPD), Pneumonia, Respiratory Failure GI Medical History: Reports: Gastroesophageal Reflux Disease Musculoskeltal Medical History: Reports: Arthritis Psychiatric Medical History: Reports: Depression Hematology: Past Surgical History Past Surgical History: Reports: Orthopedic Surgery, Other Social History Smoking Status: Never Smoker Frequency of Alcohol Use: Rare Hx Recreational Drug Use: No Drugs: None Hx Prescription Drug Abuse: No Family History Family History: None, Reviewed & Not Pertinent Parental Family History Reviewed: Yes Children Family History Reviewed: Yes Sibling(s) Family History Reviewed.: Yes Medication/Allergy Home Medications: Albuterol Sulfate [Ventolin Hfa 8 gm Mdi (1 Mdi/ER Disp)] 2 puff IH Q6HP PRN 01/05/19 Lorazepam [Ativan 0.5 mg Tablet] 0.5 mg PO Q4HP PRN 01/05/19 RX: Albuterol Sulfate [Ventolin 0.083% Neb 2.5 mg/3 mL Ampul] 1 vial NEB RTBID 01/05/19 RX: Aspirin [Ecotrin 81 mg EC Tablet] 81 mg PO DAILY 01/05/19 RX: Chlorhexidine Gluconate [Periogard 0.12% Oral Rinse 15 ml] 15 ml MM BID 01/05/19 RX: Chlorpheniramine Maleate [Chlor-Trimeton 4 mg Tablet] 4 mg PO Q6 01/05/19 RX: Cyanocobalamin (Vitamin B-12) [Vitamin B-12 1000 mcg Tablet] 1,000 mcg SL DAILY 01/05/19 RX: Ergocalciferol (Vitamin D2) [Drisdol] 50,000 unit PO LONDONO@1000 01/05/19 RX: Glucosamine/MSM/Chondroitin A [Isejukatsfb-Lvnjl-BHE Caplet] 1 each PO DAILY 01/05/19 RX: Losartan/Hydrochlorothiazide [Losartan-Hctz 50-12.5 mg Tab] 1 each PO DAILY 01/05/19 RX: Metoprolol Succinate [Toprol XL 100 mg Tablet] 100 mg PO DAILY 01/05/19 RX: Mirabegron [Myrbetriq] 25 mg PO QPM 01/05/19 RX: Montelukast Sodium [Singulair 10 mg Tablet] 10 mg PO QPM 01/05/19 RX: Innis-3 Fatty Acids/Fish Oil [Fish Oil 1,000 mg Capsule] 2,000 mg PO DAILY 01/05/19 RX: Quetiapine Fumarate [Seroquel] 25 mg PO QHS 01/05/19 RX: Vitamin E 1,000 unit PO DAILY 01/05/19 RX: Vortioxetine Hydrobromide [Trintellix] 10 mg PO DAILY 01/05/19 Fluticasone/Umeclidin/Vilanter [Trelegy 100-62.5-25 Mcg Ellipta 14 Dose/Dpi] 1 each .ROUTE DAILY #2 inhaler 01/11/19 RX: Prednisone [Deltasone 20 mg Tablet] 20 mg PO DAILY #4 tablet 01/11/19 Allergies/Adverse Reactions: No Known Allergies Allergy (Verified 01/04/19 18:44) Review of Systems Constitutional: ABSENT: chills, fever(s), headache(s), weight gain, weight loss Eyes: ABSENT: visual disturbances Ears: ABSENT: hearing changes Cardiovascular: ABSENT: chest pain, dyspnea on exertion, edema, orthropnea, palpitations Respiratory: ABSENT: cough, hemoptysis Gastrointestinal: ABSENT: abdominal pain, constipation, diarrhea, hematemesis, hematochezia, nausea, vomiting Genitourinary: ABSENT: dysuria, hematuria Musculoskeletal: ABSENT: joint swelling Integumentary: ABSENT: rash, wounds Neurological: ABSENT: abnormal gait, abnormal speech, confusion, dizziness, focal weakness, syncope Psychiatric: ABSENT: anxiety, depression, homidical ideation, suicidal ideation Endocrine: ABSENT: cold intolerance, heat intolerance, menstrual abnormalities, polydipsia, polyuria Hematologic/Lymphatic: ABSENT: easy bleeding, easy bruising, lymphadenopathy Physical Exam Vital Signs: Temp Pulse Resp BP Pulse Ox 99.0 F 96 17 109/62 97 02/27/19 14:10 02/27/19 14:26 02/27/19 14:10 02/27/19 14:10 02/27/19 14:10 Intake & Output 02/26/19 02/27/19 02/28/19 06:59 06:59 06:59 Intake Total 240 Balance 240 Weight 65.7 kg General appearance: PRESENT: no acute distress Head exam: PRESENT: atraumatic, normocephalic Eye exam: PRESENT: conjunctiva pink, EOMI, PERRLA Ear exam: PRESENT: normal external ear exam Mouth exam: PRESENT: moist, tongue midline Neck exam: PRESENT: full ROM Respiratory exam: PRESENT: clear to auscultation ryley Cardiovascular exam: PRESENT: RRR, +S1, +S2 Pulses: PRESENT: normal dorsalis pedis pul, +2 pedal pulses bilateral Vascular exam: PRESENT: normal capillary refill GI/Abdominal exam: PRESENT: normal bowel sounds, soft Rectal exam: PRESENT: deferred Neurological exam: PRESENT: alert, CN II-XII grossly intact Psychiatric exam: PRESENT: appropriate affect, normal mood Skin exam: PRESENT: dry, intact, warm Results Laboratory Results: 02/27/19 15:56 02/27/19 15:56 02/27/19 02/27/19 02/27/19 15:00 15:56 15:56 WBC 5.1 RBC 4.06 Hgb 11.4 L Hct 35.3 L MCV 87 MCH 28.0 MCHC 32.2 RDW 15.1 H Plt Count 186 Seg Neutrophils % 66.8 Carbonic Acid 3.54 H HCO3/H2CO3 Ratio 13:1 ABG pH 7.24 L ABG pCO2 117.7 H* ABG pO2 228.3 H ABG HCO3 49.1 H ABG O2 Saturation 99.2 H ABG Base Excess 16.6 FiO2 5L Sodium 133.4 L Potassium 4.3 Chloride 87 L Carbon Dioxide 38 H Anion Gap 8 BUN 12 Creatinine 0.36 L Est GFR ( Amer) > 60 Glucose 113 H Calcium 8.8 Total Bilirubin 0.3 AST 16 Alkaline Phosphatase 85 Total Protein 6.1 L Albumin 3.6 Impressions: Abdomen/Pelvis CT 02/27/19 00:00 IMPRESSION: NO SIGNIFICANT OR ACUTE FINDING IN THE ABDOMEN OR PELVIS ON CT SCAN WITH IV CONTRAST. SEVERE SCOLIOSIS WITH SURGICAL CHANGES AND HARDWARE. Chest X-Ray 02/27/19 00:00 IMPRESSION: CARDIOMEGALY. PROBABLE BASILAR ATELECTASIS. NO SIGNIFICANT INTERVAL CHANGE. Assessment & Plan - Diagnosis (1) Chronic respiratory failure Qualifiers: Respiratory failure complication: hypoxia Qualified Code(s): J96.11 - Chronic respiratory failure with hypoxia Is this a current diagnosis for this admission?: Yes Plan: She has chronic respiratory failure patient not in any acute distress, the arterial blood gas suggests loss of hypoxic drive, the PO2 is more than 200, patient is not stuporous, no indication for mechanical ventilation (2) Kyphoscoliosis Is this a current diagnosis for this admission?: Yes (3) Urinary tract infection Qualifiers: Urinary tract infection type: site unspecified Hematuria presence: without hematuria Qualified Code(s): N39.0 - Urinary tract infection, site not specified Is this a current diagnosis for this admission?: Yes Plan: She has urinary symptoms, no evidence of urinary obstruction (4) Tracheostomy in place Is this a current diagnosis for this admission?: Yes
--- NOTE | 2019-02-27 20:42 | PDOC DISCHARGE SUMMARY ---
Impression - Admit/DC Date/PCP Admission Date/Primary Care Provider: 02/27/19 13:51 KIMI CANELA MD Discharge Date: 02/27/19 - Discharge Diagnosis (1) Chronic respiratory failure Is this a current diagnosis for this admission?: Yes (2) Kyphoscoliosis Is this a current diagnosis for this admission?: Yes (3) Urinary tract infection Is this a current diagnosis for this admission?: Yes (4) Tracheostomy in place Is this a current diagnosis for this admission?: Yes - Additional Information Discharge Activity: Activity As Tolerated Referrals: KIMI CANELA MD [Primary Care Provider] - Home Medications: Albuterol Sulfate [Ventolin 0.083% Neb 2.5 mg/3 mL Ampul] 1 vial NEB RTBID 01/05/19 Albuterol Sulfate [Ventolin Hfa 8 gm Mdi (1 Mdi/ER Disp)] 2 puff IH Q6HP PRN 01/05/19 Aspirin [Ecotrin 81 mg EC Tablet] 81 mg PO DAILY 01/05/19 Chlorhexidine Gluconate [Periogard 0.12% Oral Rinse 15 ml] 15 ml MM BID 01/05/19 Chlorpheniramine Maleate [Chlor-Trimeton 4 mg Tablet] 4 mg PO Q6 01/05/19 Cyanocobalamin (Vitamin B-12) [Vitamin B-12 1000 mcg Tablet] 1,000 mcg SL DAILY 01/05/19 Ergocalciferol (Vitamin D2) [Drisdol] 50,000 unit PO L[place]ONO@1000 01/05/19 Glucosamine/MSM/Chondroitin A [Imjexortokc-Xrzdd-ZKJ Caplet] 1 each PO DAILY 01/05/19 Lorazepam [Ativan 0.5 mg Tablet] 0.5 mg PO Q4HP PRN 01/05/19 Losartan/Hydrochlorothiazide [Losartan-Hctz 50-12.5 mg Tab] 1 each PO DAILY 01/05/19 Metoprolol Succinate [Toprol XL 100 mg Tablet] 100 mg PO DAILY 01/05/19 Mirabegron [Myrbetriq] 25 mg PO QPM 01/05/19 Montelukast Sodium [Singulair 10 mg Tablet] 10 mg PO QPM 01/05/19 [place]-3 Fatty Acids/Fish Oil [Fish Oil 1,000 mg Capsule] 2,000 mg PO DAILY 01/05/19 Quetiapine Fumarate [Seroquel] 25 mg PO QHS 01/05/19 Vitamin E 1,000 unit PO DAILY 01/05/19 Vortioxetine Hydrobromide [Trintellix] 10 mg PO DAILY 01/05/19 Fluticasone/Umeclidin/Vilanter [Trelegy 100-62.5-25 Mcg Ellipta 14 Dose/Dpi] 1 each .ROUTE DAILY #2 inhaler 01/11/19 Prednisone [Deltasone 20 mg Tablet] 20 mg PO DAILY #4 tablet 01/11/19 History of Present Illiness History of Present Illness: MITCH ORELLANA is a 69 year old female, She has chronic respiratory failure on home oxygen with a tracheostomy tube, she came to the office today with the home health nurse and the sister for evaluation of urinary retention, hypoxemia, I felt it is best to admit patient for observation and evaluation of her symptoms, a stat CAT scan of the abdomen and pelvis with IV contrast was obtained it was negative there was no evidence of hydronephrosis, there was no full bladder, the hemogram was normal the chemistry was normal at the ABG on FiO2 of 5 L, pH 7.24 PCO2 117, PO2 228.3, patient was alert oriented she was not stuporous, the ABG suggests loss of hypoxic drive because of the high FiO2, the FiO2 was reduced to 2 L, and patient is stable not in any distress she does not require any noninvasive positive pressure ventilation or any mechanical ventilation. Sammy damon was brought in for observation she will be discharged home Hospital Course Hospital Course: Patient was admitted for evaluation of urinary retention, urinary symptoms the CT scan of the abdomen and pelvis with IV contrast was normal, she was given antibiotic for UTI Physical Exam Vital Signs: Temp Pulse Resp BP Pulse Ox 99.0 F 96 17 109/62 97 02/27/19 14:10 02/27/19 14:26 02/27/19 14:10 02/27/19 14:10 02/27/19 14:10 Intake & Output 02/26/19 02/27/19 02/28/19 06:59 06:59 06:59 Intake Total 240 Balance 240 Weight 65.7 kg General appearance: PRESENT: no acute distress Eye exam: PRESENT: PERRLA Respiratory exam: PRESENT: clear to auscultation ryley Cardiovascular exam: PRESENT: +S1, +S2 Neurological exam: PRESENT: alert, CN II-XII grossly intact Results Laboratory Results: WBC 5.1 10^3/uL (4.0-10.5) 02/27/19 15:56 RBC 4.06 10^6/uL (3.72-5.28) 02/27/19 15:56 Hgb 11.4 g/dL (12.0-15.5) L 02/27/19 15:56 Hct 35.3 % (36.0-47.0) L 02/27/19 15:56 MCV 87 fl (80-97) 02/27/19 15:56 MCH 28.0 pg (27.0-33.4) 02/27/19 15:56 MCHC 32.2 g/dL (32.0-36.0) 02/27/19 15:56 RDW 15.1 % (11.5-14.0) H 02/27/19 15:56 Plt Count 186 10^3/uL (150-450) 02/27/19 15:56 Lymph % (Auto) 19.2 % (13-45) 02/27/19 15:56 [place] % (Auto) 10.2 % (3-13) 02/27/19 15:56 Eos % (Auto) 3.2 % (0-6) 02/27/19 15:56 Baso % (Auto) 0.6 % (0-2) 02/27/19 15:56 Absolute Neuts (auto) 3.4 10^3/uL (1.7-8.2) 02/27/19 15:56 Absolute Lymphs (auto) 1.0 10^3/uL (0.5-4.7) 02/27/19 15:56 Absolute Monos (auto) 0.5 10^3/uL (0.1-1.4) 02/27/19 15:56 Absolute Eos (auto) 0.2 10^3/uL (0.0-0.6) 02/27/19 15:56 Absolute Basos (auto) 0.0 10^3/uL (0.0-0.2) 02/27/19 15:56 Seg Neutrophils % 66.8 % (42-78) 02/27/19 15:56 Carbonic Acid 3.54 mmol/L (1.05-1.35) H 02/27/19 15:00 HCO3/H2CO3 Ratio 13:1 02/27/19 15:00 ABG pH 7.24 (7.35-7.45) L 02/27/19 15:00 ABG pCO2 117.7 mmHg (35-45) H* 02/27/19 15:00 ABG pO2 228.3 mmHg (80-100) H 02/27/19 15:00 ABG HCO3 49.1 mmol/L (20-24) H 02/27/19 15:00 ABG Total CO2 52.7 mmol/L (21-25) H 02/27/19 15:00 ABG O2 Saturation 99.2 % (94-98) H 02/27/19 15:00 ABG Base Excess 16.6 mmol/L 02/27/19 15:00 FiO2 5L 02/27/19 15:00 Sodium 133.4 mmol/L (137-145) L 02/27/19 15:56 Potassium 4.3 mmol/L (3.6-5.0) 02/27/19 15:56 Chloride 87 mmol/L (98-107) L 02/27/19 15:56 Carbon Dioxide 38 mmol/L (22-30) H 02/27/19 15:56 Anion Gap 8 (5-19) 02/27/19 15:56 BUN 12 mg/dL (7-20) 02/27/19 15:56 Creatinine 0.36 mg/dL (0.52-1.25) L 02/27/19 15:56 Est GFR ( Amer) > 60 (>60) 02/27/19 15:56 Est GFR (MDRD) Non-Af > 60 (>60) 02/27/19 15:56 Glucose 113 mg/dL (75-110) H 02/27/19 15:56 Calcium 8.8 mg/dL (8.4-10.2) 02/27/19 15:56 Total Bilirubin 0.3 mg/dL (0.2-1.3) 02/27/19 15:56 Direct Bilirubin 0.1 mg/dL (0.0-0.4) 02/27/19 15:56 Neonat Total Bilirubin Not Reportable 02/27/19 15:56 Neonat Direct Bilirubin Not Reportable 02/27/19 15:56 Neonat Indirect Bili Not Reportable 02/27/19 15:56 AST 16 U/L (14-36) 02/27/19 15:56 ALT 11 U/L (<35) 02/27/19 15:56 Alkaline Phosphatase 85 U/L (38-126) 02/27/19 15:56 Total Protein 6.1 g/dL (6.3-8.2) L 02/27/19 15:56 Albumin 3.6 g/dL (3.5-5.0) 02/27/19 15:56 Impressions: Abdomen/Pelvis CT 02/27/19 00:00 IMPRESSION: NO SIGNIFICANT OR ACUTE FINDING IN THE ABDOMEN OR PELVIS ON CT SCAN WITH IV CONTRAST. SEVERE SCOLIOSIS WITH SURGICAL CHANGES AND HARDWARE. Chest X-Ray 02/27/19 00:00 IMPRESSION: CARDIOMEGALY. PROBABLE BASILAR ATELECTASIS. NO SIGNIFICANT INTERVAL CHANGE. Stroke Is this a Stroke Patient?: No Acute Heart Failure - Is this a Heart Failure Patient?: No
[2019-02-27 21:18] LABS: APPEARANCE,URINE CLEAR; BILIRUBIN,URINE NEGATIVE (NEGATIVE); COLOR,URINE YELLOW; GLUCOSE, URINE NEGATIVE (NEGATIVE); KETONES,URINE NEGATIVE (NEGATIVE); LEUKOCYTE ESTERASE,URINE TRACE (NEGATIVE); NITRITE,URINE POSITIVE (NEGATIVE); PROTEIN,URINE NEGATIVE (NEGATIVE); UROBILINOGEN,URINE NEGATIVE mg/dL (<2.0)
[2019-02-27] MEDS ORDERED: MONTELUKAST SODIUM 10 MG TABLET PO ONE (23:00)
[2019-02-27 23:03] LABS: ARTERIAL BLOOD BASE EXCESS 10.6 mmol/L; ARTERIAL BLOOD H2CO3 2.25 mmol/L (1.05-1.35); ARTERIAL BLOOD HCO3 39.2 mmol/L (20-24); ARTERIAL BLOOD O2 SATURATION 85.7 % (94-98); ARTERIAL BLOOD PH 7.34 (7.35-7.45); ARTERIAL BLOOD PO2 55.6 mmHg (80-100); ARTERIAL BLOOD TOTAL CO2 41.5 mmol/L (21-25)
[2019-02-27 23:04] LABS: ARTERIAL BLOOD FIO2 30%
[2019-02-27 23:07] LABS: ARTERIAL BLOOD PCO2 74.6 mmHg (35-45)
[2019-02-27] MEDS ORDERED: QUETIAPINE FUMARATE 25 MG TABLET PO ONE (23:45)
[2019-02-28] MEDS: NITROFURANTOIN MONOHYD/M-CRYST 100 MG CAPSULE PO SCH ×2 (00:23→10:22)
[2019-02-28] MEDS: IPRATROPIUM/ALBUTEROL 0.5-2.5 MG/3 ML AMPUL NEB SCH ×2 (01:51→08:56)
[2019-02-28 08:44] VITALS: BP 126/53
== END 2019-02-28 13:13 | disposition home health service (06) ==
LOC: 3W 13:51
PROVIDERS: ADMIT Internal Medicine; ATTEND Internal Medicine
DX: J96.11 Chronic respiratory failure with hypoxia (principal); M41.9 Scoliosis, unspecified; N39.0 Urinary tract infection, site not specified; Z93.0 Tracheostomy status; I10 Essential (primary) hypertension; J44.9 Chronic obstructive pulmonary disease, unspecified; Z79.899 Other long term (current) drug therapy; Z79.82 Long term (current) use of aspirin; Z99.81 Dependence on supplemental oxygen
CPT/HCPCS: 36415; 87086; 82803; 85025; 80076; 80048; 81001; 82565; 71046; 74177; 36600; 94640 ×2; G0378 ×2; G0379; A9270 ×4; J7620; J8499

== ENCOUNTER 2019-03-12 12:18 | Inpatient (IN) | payer MEDICARE, MEDICAID ==
[2019-03-12 12:38] LABS: ABSOLUTE EOSINOPHILS # (AUTO) 0.1 10^3/uL (0.0-0.6); ABSOLUTE LYMPHOCYTES (AUTO) 0.8 10^3/uL (0.5-4.7); ABSOLUTE MONOCYTES (AUTO) 0.6 10^3/uL (0.1-1.4); ABSOLUTE NEUT (AUTO) 5.5 10^3/uL (1.7-8.2); BASOPHILS % (AUTO) 0.3 % (0-2); HEMATOCRIT 38.4 % (36.0-47.0); HEMOGLOBIN 12.3 g/dL (12.0-15.5); LYMPHOCYTES % (AUTO) 11.9 % (13-45); MEAN CORPUSCULAR HEMOGLOBIN 28.3 pg (27.0-33.4); MEAN CORPUSCULAR HGB CONC 32.1 g/dL (32.0-36.0); MEAN CORPUSCULAR VOLUME 88 fl (80-97); MONOCYTES % (AUTO) 9.1 % (3-13); PLATELET COUNT 159 10^3/uL (150-450); RED BLOOD COUNT 4.36 10^6/uL (3.72-5.28); RED CELL DISTRIBUTION WIDTH 14.8 % (11.5-14.0); SEGMENTED NEUTROPHILS % (AUTO) 77.7 % (42-78); TOTAL CELLS COUNTED % (AUTO) 100 %
[2019-03-12 13:04] LABS: ALBUMIN 4.1 g/dL (3.5-5.0); ALKALINE PHOSPHATASE 111 U/L (38-126); ASPARTATE AMINO TRANSFERASE 16 U/L (14-36); BILIRUBIN,DIRECT 0.1 mg/dL (0.0-0.4); BILIRUBIN,TOTAL 0.6 mg/dL (0.2-1.3); BLOOD UREA NITROGEN 9 mg/dL (7-20); CALCIUM 9.5 mg/dL (8.4-10.2); CHLORIDE 84 mmol/L (98-107); GLUCOSE 107 mg/dL (75-110); POTASSIUM 4.6 mmol/L (3.6-5.0); TOTAL PROTEIN 7.1 g/dL (6.3-8.2)
[2019-03-12 13:12] LABS: ANION GAP 7 (5-19)
[2019-03-12 13:13] LABS: CARBON DIOXIDE 46 mmol/L (22-30)
[2019-03-12 13:22] LABS: INTERNATIONAL RATION (INR) 1.01; PROTHROMBIN TIME 13.3 SEC (11.4-15.4)
[2019-03-12 13:23] LABS: PARTIAL THROMBOPLASTIN TIME 33.1 SEC (23.5-35.8)
--- NOTE | 2019-03-12 13:24 | ER Document Report ---
ED General - General Chief Complaint: Respiratory Distress Stated Complaint: RESPIRATORY DISTRESS Time Seen by Provider: 03/12/19 12:25 Primary Care Provider: KIMI CANELA MD [Primary Care Provider] - Follow up as needed Notes: 69-year-old female brought in by EMS who is trach dependent. Patient's home health aide came in this morning and found her in the 70s to 80s oxygen saturation on 4 L via trach, she moved her up to 10 L and gave her an albuterol and Atrovent breathing treatment. Tkii states that when they got there her oxygen saturation was in the 90s on 10 L they decreased her to 4 L. They stated she then desaturated with being moved from the bed to the EMS stretcher, they then gave her an albuterol and Atrovent breathing treatment increased her to 4 L however the patient's breathing worsened during the albuterol and Atrovent breathing treatment so they stopped it. Per EMS they heard rales. Patient denies any cough, states that she feels like her breathing is worse and she has to sit straight up. Patient is not aware of any history of congestive heart failure. Patient had a tracheostomy placed at [facility] approximately 1 year ago in April. She thinks it may have been placed after she was on a ventilator but she is not entirely certain. Patient states "my trach was placed because I have trouble breathing." TRAVEL OUTSIDE OF THE [place] IN LAST 30 DAYS: No - Related Data Allergies/Adverse Reactions: No Known Allergies Allergy (Verified 01/04/19 18:44) Past Medical History - General Information source: Patient - Social History Smoking Status: Never Smoker Frequency of alcohol use: None Drug Abuse: None Family History: None, Reviewed & Not Pertinent Patient has suicidal ideation: No Patient has homicidal ideation: No - Past Medical History Cardiac Medical History: Reports: Hx Hypertension Pulmonary Medical History: Reports: Hx COPD, Hx Pneumonia, Hx Respiratory Failure Neurological Medical History: Denies: Hx Cerebrovascular Accident Renal/ Medical History: Denies: Hx Peritoneal Dialysis GI Medical History: Reports: Hx Gastroesophageal Reflux Disease. Denies: Hx Ulcer Musculoskeletal Medical History: Reports Hx Arthritis Psychiatric Medical History: Reports: Hx Depression Past Surgical History: Reports: Hx Orthopedic Surgery, Other. Denies: Hx Open Heart Surgery - Immunizations Hx Diphtheria, Pertussis, Tetanus Vaccination: Yes Hx Pneumococcal Vaccination: 02/23/11 Review of Systems - Review of Systems Constitutional: See HPI, Malaise, Weakness EENT: No symptoms reported Cardiovascular: See HPI, Orthopnea, Dyspnea Respiratory: See HPI, Short of breath. denies: Cough -: Yes All other systems reviewed and negative Physical Exam - Vital signs Vitals: Temp Pulse Resp BP Pulse Ox 98.6 F 78 30 H 174/92 H 68 L 03/12/19 12:20 03/12/19 12:20 03/12/19 12:20 03/12/19 12:20 03/12/19 12:20 Interpretation: Hypoxic - Proxy resolved when placed on 100% oxygen via trach collar., Tachypneic - Notes Notes: GENERAL: Alert, anxious, sitting straight up in bed, complaining that her legs hurt sitting in this position, appears anxious and short of breath. HEAD: Normocephalic, atraumatic EYES: Pupils equal, round and reactive to light, extraocular movements intact. ENT: Oral mucosa moist, tongue midline. NECK: Full range of motion, supple, trachea midline with well-healed tracheostomy in good position. LUNGS: No expiratory wheezing, inspiratory rales, tracheostomy in place with trach cuff via 100% oxygen humidified, appears mildly short of breath, tachypne ic. HEART: Regular rate and rhythm, no murmurs, gallops, rubs. ABDOMEN: Soft, nontender, nondistended, bowel sounds present in all 4 quadrants. EXTREMITIES: Moves all 4 extremities spontaneously, no edema, radial and dorsalis pedis pulses 2/4 bilaterally. No cyanosis. NEUROLOGICAL: Alert and oriented x3, normal speech despite tracheostomy which is on. PSYCH: Anxious. SKIN: Warm, Dry, normal turgor. Course - Re-evaluation Re-evalutation: 03/12/19 14:51 CBC unremarkable, coags normal, CMP shows elevated CO2 at 46, proBNP surprisingly low at 571, troponin normal, urinalysis shows moderate blood, 21 RBCs, no signs of infection, chest x-ray shows large bleb, awaiting official radiology interpretation, do not think this represents a pneumothorax. ABG shows respiratory acidosis with pH of 7.27 and a CO2 of 102.7, patient is going to be placed on ventilator using her trach with settings of pressure support of 12 and PEEP of 8 as long as she can tolerate this. 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 Cortes who agrees to accept the patient to the ICU. - Vital Signs Vital signs: Temp Pulse Resp BP Pulse Ox 98.6 F 78 27 H 186/87 H 95 03/12/19 12:20 03/12/19 12:20 03/12/19 13:01 03/12/19 13:00 03/12/19 13:01 - Laboratory Result Diagrams: 03/12/19 12:02 03/12/19 12:02 Laboratory results interpreted by me: 03/12/19 03/12/19 03/12/19 12:02 12:02 12:02 RDW 14.8 H Lymph % (Auto) 11.9 L Carbonic Acid ABG pH ABG pCO2 ABG HCO3 ABG Total CO2 Sodium 136.8 L Chloride 84 L Carbon Dioxide 46 H* Creatinine 0.40 L Creatine Kinase < 20 L NT-Pro-B Natriuret Pep Urine Protein Urine Blood Ur Leukocyte Esterase 03/12/19 03/12/19 03/12/19 12:02 13:10 13:20 RDW Lymph % (Auto) Carbonic Acid 3.09 H ABG pH 7.27 L ABG pCO2 102.7 H* ABG HCO3 46.0 H ABG Total CO2 49.1 H Sodium Chloride Carbon Dioxide Creatinine Creatine Kinase NT-Pro-B Natriuret Pep 571 H Urine Protein 30 H Urine Blood MODERATE H Ur Leukocyte Esterase SMALL H Critical Care Note - Critical Care Note Total time excluding time spent on procedures (mins): 32 Discharge - Discharge Clinical Impression: Acute hypercapnic respiratory failure, Acute respiratory acidosis, COPD with acute exacerbation Condition: Serious Disposition: ADMITTED INPATIENT Admitting Provider: Sophia ([facility]) Unit Admitted: ICU Referrals: KIMI CANELA MD [Primary Care Provider] - Follow up as needed
[2019-03-12] MEDS ORDERED: FUROSEMIDE INJ/PF 40 MG/4 ML SDV IV ONE (13:25)
[2019-03-12 13:37] LABS: CREATINE KINASE MB 1.06 ng/mL (<4.55); NT PRO BNP 571 pg/mL (<125)
[2019-03-12 13:42] LABS: TROPONIN I < 0.012 ng/mL
[2019-03-12 13:44] LABS: APPEARANCE,URINE SLIGHTLY-CLOUDY; BILIRUBIN,URINE NEGATIVE (NEGATIVE); COLOR,URINE YELLOW; GLUCOSE, URINE NEGATIVE (NEGATIVE); KETONES,URINE NEGATIVE (NEGATIVE); LEUKOCYTE ESTERASE,URINE SMALL (NEGATIVE); NITRITE,URINE NEGATIVE (NEGATIVE); PROTEIN,URINE 30 mg/dL (NEGATIVE); URINE SPECIFIC GRAVITY 1.016; UROBILINOGEN,URINE NEGATIVE mg/dL (<2.0)
[2019-03-12 13:46] LABS: ARTERIAL BLOOD BASE EXCESS 14.6 mmol/L; ARTERIAL BLOOD H2CO3 3.09 mmol/L (1.05-1.35); ARTERIAL BLOOD O2 SATURATION 94.8 % (94-98); ARTERIAL BLOOD PH 7.27 (7.35-7.45); ARTERIAL BLOOD PO2 88.5 mmHg (80-100); ARTERIAL BLOOD TOTAL CO2 49.1 mmol/L (21-25)
[2019-03-12 13:47] LABS: ARTERIAL BLOOD FIO2 100%; ARTERIAL BLOOD PCO2 102.7 mmHg (35-45)
[2019-03-12] MEDS ORDERED: LORAZEPAM INJ 2 MG/1 ML VIAL IV ONE (14:45)
[2019-03-12] MEDS ORDERED: METHYLPREDNISOLONE INJ 125 MG/2 ML SDV IV ONE (14:46)
--- NOTE | 2019-03-12 14:50 | RADIOLOGY REPORT (SQ) ---
EXAM DESCRIPTION: CHEST SINGLE VIEW COMPLETED DATE/TIME: 03/12/2019 2:39 pm REASON FOR STUDY: cough, SOB, orthopnea COMPARISON: Chest x-ray 02/27/2019, 06/05/2018. EXAM PARAMETERS: NUMBER OF VIEWS: One view. TECHNIQUE: Single frontal radiographic view of the chest acquired. RADIATION DOSE: NA LIMITATIONS: Patient positioning FINDINGS: LUNGS AND PLEURA: The patient is rotated. There are bilateral airspace opacities. There is blunting of the costophrenic angles. No pneumothorax. MEDIASTINUM AND HILAR STRUCTURES: Stable appearance. HEART AND VASCULAR STRUCTURES: The heart is enlarged. There is mild vascular congestion. BONES: Orthopedic hardware transfixing the thoracic spine. HARDWARE: A tracheostomy tube is noted. IMPRESSION: Cardiomegaly and mild vascular congestion. Bilateral airspace opacities, may be seconda ry to atelectasis or pneumonia. Blunting of the costophrenic angles, small pleural effusions cannot be excluded. TECHNICAL DOCUMENTATION: JOB ID: [id number] 2010 [employer]- All Rights Reserved Reading location - IP/workstation name: [email or web address]
[2019-03-12] MEDS ORDERED: ONDANSETRON 4 MG TAB.RAPDIS PO PRN (15:26)
[2019-03-12] MEDS ORDERED: IPRATROPIUM/ALBUTEROL 0.5-2.5 MG/3 ML AMPUL NEB PRN (15:26)
[2019-03-12] MEDS ORDERED: ACETAMINOPHEN 325 MG TABLET PO PRN (15:26)
[2019-03-12] MEDS ORDERED: MORPHINE SULFATE 10 MG/ML INJ IV PRN (15:35)
[2019-03-12] MEDS ORDERED: FAMOTIDINE 20 MG TABLET PO SCH (15:45)
[2019-03-12] MEDS: ENOXAPARIN SODIUM INJ 40 MG/0.4 ML DISP.SYRIN SUBCUT SCH (16:10)
--- NOTE | 2019-03-12 17:59 | CRITICAL CARE ADMISSION REPORT ---
[facility] Date:: 03/12/19 Time:: 15:30 Reason for ICU Reason:: On ventilator for hypoxic and hypercarbic respiratory failure History obtained from:: Patient, family, old records - Diagnosis/Plan (1) Acute respiratory failure with hypoxia and hypercapnia Is this a current diagnosis for this admission?: Yes Plan: There seem to be multiple etiologies at work here. Kyphoscoliosis, scarring from multiple pneumonia, possible ARDS. Plan is to keep on ventilator on mild setting (CPAP and PSV) and normalize ABGs (2) Anxiety Is this a current diagnosis for this admission?: Yes Plan: Effectively treated with ativan. (3) Scoliosis (and kyphoscoliosis), idiopathic Is this a current diagnosis for this admission?: Yes Plan: Has long apple in back but still has respiratory compromise. (4) Tracheostomy in place Is this a current diagnosis for this admission?: Yes Plan: Trach changed to #4 cuffed Shiley for use on vent.She has had about a year. - . Plan Summary: More comfortable on vent ABG pending Past Medical History Cardiac Medical History: Reports: Hypertension Pulmonary Medical History: Reports: Chronic Obstructive Pulmonary Disease (COPD), Intubation, Pneumonia, Respiratory Failure GI Medical History: Reports: Gastroesophageal Reflux Disease Musculoskeltal Medical History: Reports: Arthritis Psychiatric Medical History: Reports: Depression Hematology: Past Surgical History Past Surgical History: Reports: Orthopedic Surgery, Other Social/Family History - Social History Smoking Status: Never Smoker Frequency of Alcohol Use: Rare Hx Recreational Drug Use: No Drugs: None Hx Prescription Drug Abuse: No - Medication/Allergies Home Medications: Albuterol Sulfate [Ventolin Hfa 8 gm Mdi (1 Mdi/ER Disp)] 2 puff IH Q6HP PRN 01/05/19 Aspirin [Ecotrin 81 mg EC Tablet] 81 mg PO DAILY 01/05/19 Chlorhexidine Gluconate [Periogard 0.12% Oral Rinse 15 ml] 5 ml PO DAILY 01/05/19 Cyanocobalamin (Vitamin B-12) [Vitamin B-12 1000 mcg Tablet] 1,000 mcg SL DAILY 01/05/19 Ergocalciferol (Vitamin D2) [Drisdol] 50,000 unit PO [place]@1000 01/05/19 Glucosamine/MSM/Chondroitin A [Oeywiuqzsjh-Tadji-DIX Caplet] 1 each PO DAILY 01/05/19 Losartan/Hydrochlorothiazide [Losartan-Hctz 50-12.5 mg Tab] 1 each PO DAILY 01/05/19 Metoprolol Succinate [Toprol XL 100 mg Tablet] 100 mg PO DAILY 01/05/19 Mirabegron [Myrbetriq] 25 mg PO QPM 01/05/19 Montelukast Sodium [Singulair 10 mg Tablet] 10 mg PO QPM 01/05/19 [place]-3 Fatty Acids/Fish Oil [Fish Oil 1,000 mg Capsule] 2,000 mg PO DAILY 01/05/19 Quetiapine Fumarate [Seroquel] 25 mg PO QHS 01/05/19 Vitamin E 1,000 unit PO DAILY 01/05/19 Vortioxetine Hydrobromide [Trintellix] 10 mg PO DAILY 01/05/19 Fluticasone/Umeclidin/Vilanter [Trelegy 100-62.5-25 Mcg Ellipta 14 Dose/Dpi] 1 puff IH DAILY 02/28/19 Ipratropium/Albuterol Sulfate [Duoneb 3 ml Ampul] 1 vial NEB Q6 02/28/19 Allergies/Adverse Reactions: No Known Allergies Allergy (Verified 01/04/19 18:44) Review of Systems Constitutional: PRESENT: fatigue Eyes: ABSENT: visual disturbances Ears: ABSENT: hearing changes Cardiovascular: ABSENT: chest pain, dyspnea on exertion, edema, orthropnea, palpitations Respiratory: PRESENT: dyspnea Gastrointestinal: ABSENT: abdominal pain, constipation, diarrhea, hematemesis, hematochezia, nausea, vomiting Genitourinary: ABSENT: dysuria, hematuria Musculoskeletal: PRESENT: back pain, deformity, muscle weakness Integumentary: ABSENT: rash, wounds Neurological: PRESENT: abnormal gait Psychiatric: ABSENT: anxiety, depression, homidical ideation, suicidal ideation Endocrine: ABSENT: cold intolerance, heat intolerance, polydipsia, polyuria Hematologic/Lymphatic: ABSENT: easy bleeding, easy bruising Physical Exam Vital Signs: Temp Pulse Resp BP Pulse Ox 98.6 F 96 22 H 105/54 L 93 03/12/19 12:20 03/12/19 13:00 03/12/19 17:00 03/12/19 17:00 03/12/19 17:00 Intake & Output 03/11/19 03/12/19 03/13/19 06:59 06:59 06:59 Weight 69.5 kg Weight/Height Weight 69.5 kg Height 4 ft 11 in General appearance: PRESENT: cooperative, mild distress Head exam: PRESENT: atraumatic, normocephalic Eye exam: PRESENT: conjunctiva pink, EOMI, PERRLA. ABSENT: scleral icterus Ear exam: PRESENT: normal external ear exam Mouth exam: PRESENT: moist, tongue midline Neck exam: PRESENT: other - #[address] ABSENT: carotid bruit, JVD, lymphadenopathy, thyromegaly Respiratory exam: PRESENT: accessory muscle use, crackles, prolonged expiratory phas, retraction, rhonchi, tachypnea Cardiovascular exam: PRESENT: RRR. ABSENT: diastolic murmur, rubs, systolic murmur GI/Abdominal exam: PRESENT: normal bowel sounds, soft. ABSENT: distended, guarding, mass, organolmegaly, rebound, tenderness Rectal exam: PRESENT: deferred Musculoskeletal exam: PRESENT: deformity Neurological exam: PRESENT: alert, awake, oriented to person, oriented to place, oriented to time, oriented to situation, CN II-XII grossly intact. ABSENT: motor sensory deficit Psychiatric exam: PRESENT: anxious Skin exam: PRESENT: dry, intact, warm. ABSENT: cyanosis, rash Tubes/Lines: PRESENT: Other - Tracheostomy. Laboratory/Radiographs Laboratory Results: 03/12/19 12:02 03/12/19 12:02 03/12/19 03/12/19 03/12/19 12:02 12: 13:10 WBC 7.0 RBC 4.36 Hgb 12.3 Hct 38.4 MCV 88 MCH 28.3 MCHC 32.1 RDW 14.8 H Plt Count 159 Seg Neutrophils % 77.7 Carbonic Acid HCO3/H2CO3 Ratio ABG pH ABG pCO2 ABG pO2 ABG HCO3 ABG O2 Saturation ABG Base Excess FiO2 Sodium 136.8 L Potassium 4.6 Chloride 84 L Carbon Dioxide 46 H* Anion Gap 7 BUN 9 Creatinine 0.40 L Est GFR ( Amer) > 60 Glucose 107 Calcium 9.5 Total Bilirubin 0.6 AST 16 Alkaline Phosphatase 111 Total Protein 7.1 Albumin 4.1 Urine Color YELLOW Urine Appearance SLIGHTLY-CLOUDY Urine pH 6.0 Ur Specific [place] 1.016 Urine Protein 30 H Urine Glucose (UA) NEGATIVE Urine Ketones NEGATIVE Urine Blood MODERATE H Urine Nitrite NEGATIVE Ur Leukocyte Esterase SMALL H Urine WBC (Auto) 9 Urine RBC (Auto) 21 03/12/19 13:20 WBC RBC Hgb Hct MCV MCH MCHC RDW Plt Count Seg Neutrophils % Carbonic Acid 3.09 H HCO3/H2CO3 Ratio 14:1 ABG pH 7.27 L ABG pCO2 102.7 H* ABG pO2 88.5 ABG HCO3 46.0 H ABG O2 Saturation 94.8 ABG Base Excess 14.6 FiO2 100% Sodium Potassium Chloride Carbon Dioxide Anion Gap BUN Creatinine Est GFR ( Amer) Glucose Calcium Total Bilirubin AST Alkaline Phosphatase Total Protein Albumin Urine Color Urine Appearance Urine pH Ur Specific [place] Urine Protein Urine Glucose (UA) Urine Ketones Urine Blood Urine Nitrite Ur Leukocyte Esterase Urine WBC (Auto) Urine RBC (Auto) 03/12/19 03/12/19 12:02 12:02 Creatine Kinase < 20 L CK-MB (CK-2) 1.06 Troponin I < 0.012 NT-Pro-B Natriuret Pep 571 H Impressions: Chest X-Ray 03/12/19 12:53 IMPRESSION: Cardiomegaly and mild vascular congestion. Bilateral airspace opacities, may be secondary to atelectasis or pneumonia. Blunting of the co stophrenic angles, small pleural effusions cannot be excluded. All labs, radiographs, diagnostic studies and EKGs were personally reviewed: Yes In addition, reports of radiographic and diagnostic studies were read: Yes Critical Time Critical Time (minutes): 40 -: The care of a critically ill patient is dynamic. This note represents a static moment in the admission process. orders and treatments may be given simulataneously and urgentl, and time is not customer service representative of the treatment process. This patient requires Critical Care secondary to life threating organ or limb dy sfunction. Without the need for Critical Care services, the patient is at risk for increasid mortality and morbidity.
[2019-03-12] MEDS: LORAZEPAM INJ 2 MG/1 ML VIAL IV PRN (18:35)
[2019-03-12 19:58] LABS: ARTERIAL BLOOD BASE EXCESS 17.6 mmol/L; ARTERIAL BLOOD H2CO3 2.18 mmol/L (1.05-1.35); ARTERIAL BLOOD HCO3 45.7 mmol/L (20-24); ARTERIAL BLOOD PH 7.42 (7.35-7.45); ARTERIAL BLOOD PO2 64.7 mmHg (80-100)
[2019-03-12 20:00] LABS: ARTERIAL BLOOD FIO2 45%
[2019-03-12 20:01] LABS: ARTERIAL BLOOD PCO2 72.3 mmHg (35-45)
[2019-03-12] MEDS: METHYLPREDNISOLONE INJ 40 MG/1 ML SDV IV SCH (22:22)
[2019-03-12] MEDS: FAMOTIDINE INJ/PF 20 MG/2 ML SDV IV SCH (22:22)
--- NOTE | 2019-03-12 23:43 | EKG REPORT ---
SEVERITY:- NORMAL ECG - SINUS RHYTHM : Confirmed by: Rachel Tillman MD 12-Mar-2019 23:41:49
[2019-03-13 05:14] LABS: ABSOLUTE LYMPHOCYTES (AUTO) 0.3 10^3/uL (0.5-4.7); ABSOLUTE MONOCYTES (AUTO) 0.1 10^3/uL (0.1-1.4); ABSOLUTE NEUT (AUTO) 2.6 10^3/uL (1.7-8.2); BASOPHILS % (AUTO) 0.2 % (0-2); HEMATOCRIT 37.7 % (36.0-47.0); HEMOGLOBIN 12.5 g/dL (12.0-15.5); MEAN CORPUSCULAR HEMOGLOBIN 28.6 pg (27.0-33.4); MEAN CORPUSCULAR HGB CONC 33.2 g/dL (32.0-36.0); MEAN CORPUSCULAR VOLUME 86 fl (80-97); MONOCYTES % (AUTO) 3.9 % (3-13); PLATELET COUNT 154 10^3/uL (150-450); RED BLOOD COUNT 4.38 10^6/uL (3.72-5.28); RED CELL DISTRIBUTION WIDTH 14.7 % (11.5-14.0); SEGMENTED NEUTROPHILS % (AUTO) 84.9 % (42-78); TOTAL CELLS COUNTED % (AUTO) 100 %
[2019-03-13 05:44] LABS: BLOOD UREA NITROGEN 18 mg/dL (7-20); CALCIUM 9.5 mg/dL (8.4-10.2); CHLORIDE 82 mmol/L (98-107); GLUCOSE 125 mg/dL (75-110); POTASSIUM 4.1 mmol/L (3.6-5.0)
[2019-03-13 06:23] LABS: ANION GAP 13 (5-19)
[2019-03-13 06:24] LABS: CARBON DIOXIDE 41 mmol/L (22-30)
--- NOTE | 2019-03-13 07:57 | PDOC CRITICAL CARE PROG REPORT ---
General Date:: 03/13/19 ICU Day:: 2 Ventilator Day:: 2 Hospital Day:: 2 Resuscitation Status: Full Code Events in the past 12 to 24 Hours:: More comfortable, ABG normalized Review of systems relevant to events:: Respiratory and neuro. Reason for ICU Addmission:: On ventilator for hypoxic and hypercarbic respiratory failure - Medications: Medications reviewed and adjusted accordingly: Yes Vasopressors:: None Sedation:: None. Physical Exam Vital Signs: Temp Pulse Resp BP Pulse Ox 97.9 F 90 17 125/64 94 03/13/19 04:00 03/12/19 20:00 03/13/19 06:21 03/13/19 06:21 03/13/19 06:21 Intake & Output 03/12/19 03/13/19 03/14/19 06:59 06:59 06:59 Output Total 180 Balance -180 Weight 67.1 kg Weight/Height Weight 67.1 kg Height 4 ft 11 in General appearance: PRESENT: cooperative Head exam: PRESENT: atraumatic, normocephalic Eye exam: PRESENT: conjunctiva pink, EOMI, PERRLA. ABSENT: scleral icterus Ear exam: PRESENT: normal external ear exam Mouth exam: PRESENT: moist, tongue midline Neck exam: PRESENT: other - Trch site is clean. Respiratory exam: PRESENT: clear to auscultation ryley, crackles, decreased breath sounds, unlabored Cardiovascular exam: PRESENT: RRR. ABSENT: diastolic murmur, rubs, systolic murmur Vascular exam: PRESENT: normal capillary refill GI/Abdominal exam: PRESENT: normal bowel sounds, soft. ABSENT: distended, guarding, mass, organolmegaly, rebound, tenderness Rectal exam: PRESENT: deferred Extremities exam: PRESENT: clubbing, +1 edema Neurological exam: PRESENT: alert, awake, oriented to person, oriented to place, oriented to time, oriented to situation, CN II-XII grossly intact. ABSENT: motor sensory deficit Psychiatric exam: PRESENT: anxious Skin exam: PRESENT: dry, intact, warm. ABSENT: cyanosis, rash Tubes/Lines: PRESENT: Other - Tracheostomy. Laboratory/Radiographs Laboratory Results: 03/13/19 03:44 03/13/19 03:44 03/12/19 03/12/19 03/12/19 12:02 12:02 13:10 WBC 7.0 RBC 4.36 Hgb 12.3 Hct 38.4 MCV 88 MCH 28.3 MCHC 32.1 RDW 14.8 H Plt Count 159 Seg Neutrophils % 77.7 Carbonic Acid HCO3/H2CO3 Ratio ABG pH ABG pCO2 ABG pO2 ABG HCO3 ABG O2 Saturation ABG Base Excess FiO2 Sodium 136.8 L Potassium 4.6 Chloride 84 L Carbon Dioxide 46 H* Anion Gap 7 BUN 9 Creatinine 0.40 L Est GFR ( Amer) > 60 Glucose 107 Calcium 9.5 Total Bilirubin 0.6 AST 16 Alkaline Phosphatase 111 Total Protein 7.1 Albumin 4.1 Urine Color YELLOW Urine Appearance SLIGHTLY-CLOUDY Urine pH 6.0 Ur Specific [place] 1.016 Urine Protein 30 H Urine Glucose (UA) NEGATIVE Urine Ketones NEGATIVE Urine Blood MODERATE H Urine Nitrite NEGATIVE Ur Leukocyte Esterase SMALL H Urine WBC (Auto) 9 Urine RBC (Auto) 21 03/12/19 03/12/19 03/13/19 13:20 19:33 03:44 WBC 3.0 L RBC 4.38 Hgb 12.5 Hct 37.7 MCV 86 MCH 28.6 MCHC 33.2 RDW 14.7 H Plt Count 154 Seg Neutrophils % 84.9 H Carbonic Acid 3.09 H 2.18 H HCO3/H2CO3 Ratio 14:1 20:1 ABG pH 7.27 L 7.42 ABG pCO2 102.7 H* 72.3 H* ABG pO2 88.5 64.7 L ABG HCO3 46.0 H 45.7 H ABG O2 Saturation 94.8 92.0 L ABG Base Excess 14.6 17.6 FiO2 100% 45% Sodium Potassium Chloride Carbon Dioxide Anion Gap BUN Creatinine Est GFR ( Amer) Glucose Calcium Total Bilirubin AST Alkaline Phosphatase Total Protein Albumin Urine Color Urine Appearance Urine pH Ur Specific [place] Urine Protein Urine Glucose (UA) Urine Ketones Urine Blood Urine Nitrite Ur Leukocyte Esterase Urine WBC (Auto) Urine RBC (Auto) 03/13/19 03:44 WBC RBC Hgb Hct MCV MCH MCHC RDW Plt Count Seg Neutrophils % Carbonic Acid HCO3/H2CO3 Ratio ABG pH ABG pCO2 ABG pO2 ABG HCO3 ABG O2 Saturation ABG Base Excess FiO2 Sodium 135.8 L Potassium 4.1 Chloride 82 L Carbon Dioxide 41 H* Anion Gap 13 BUN 18 Creatinine 0.44 L Est GFR ( Amer) > 60 Glucose 125 H Calcium 9.5 Total Bilirubin AST Alkaline Phosphatase Total Protein Albumin Urine Color Urine Appearance Urine pH Ur Specific [place] Urine Protein Urine Glucose (UA) Urine Ketones Urine Blood Urine Nitrite Ur Leukocyte Esterase Urine WBC (Auto) Urine RBC (Auto) 03/12/19 03/12/19 12:02 12:02 Creatine Kinase < 20 L CK-MB (CK-2) 1.06 Troponin I < 0.012 NT-Pro-B Natriuret Pep 571 H Impressions: Chest X-Ray 03/12/19 12:53 IMPRESSION: Cardiomegaly and mild vascular congestion. Bilateral airspace opacities, may be secondary to atelectasis or pneumonia. Blunting of the costophrenic angles, small pleural effusions cannot be excluded. All labs, radiographs, diagnostic studies and EKGs were personally reviewed: Yes In addition, reports of radiographic and diagnostic studies were read: Yes Assessment and Plan - Diagnosis (1) Acute respiratory failure with hypoxia and hypercapnia Is this a current diagnosis for this admission?: Yes Plan: Seems resolved by ABG. Will remove from vent and see if she can maintain this. (2) Anxiety Is this a current diagnosis for this admission?: Yes Plan: Looks less anxious. Ativan has helped. (3) Scoliosis (and kyphoscoliosis), idiopathic Is this a current diagnosis for this admission?: Yes Plan: Chronic and no doubt causing a mechanical respiratory difficulty. (4) Tracheostomy in place Is this a current diagnosis for this admission?: Yes Plan Summary: Remove from vent and see if she can maintain baseline resiratory status. Critical Time Critical Time (minutes): 35 Level of Care: ICU Anticipated discharge: Home Within: within 72 hours -: 1. The care of a critical patient is a dynamic process. This note is a hospital sales representative synopsis but static in nature. The timeframe for treatments given in order is not necessary the actual time these treatments may have been done. 2. This patient requires critical care secondary to ongoing requirements for therapy not offered or safe outside the critical care environment. Transfer to a lower level of care with altered life or limb morbidity and mortality. 3. Multidisciplinary rounds completed. 4. ABCDE bundle addressed.
[2019-03-13] MEDS ORDERED: OXYMETAZOLINE HCL 0.05% NASAL SPRAY 15 ML BOTTLE NASL PRN (08:30)
[2019-03-13] MEDS: ENOXAPARIN SODIUM INJ 40 MG/0.4 ML DISP.SYRIN SUBCUT SCH (09:11)
[2019-03-13] MEDS: FAMOTIDINE INJ/PF 20 MG/2 ML SDV IV SCH ×2 (09:12→22:02)
[2019-03-13] MEDS: LORAZEPAM INJ 2 MG/1 ML VIAL IV PRN ×2 (09:12→18:31)
[2019-03-13] MEDS: METHYLPREDNISOLONE INJ 40 MG/1 ML SDV IV SCH ×2 (09:12→22:02)
[2019-03-13] MEDS ORDERED: (PENDING PHARMACY ID) (Mirabegron [Myrbetriq] 25 MG) PO SCH (18:00)
[2019-03-13] MEDS ORDERED: IPRATROPIUM/ALBUTEROL 0.5-2.5 MG/3 ML AMPUL NEB SCH (18:00)
[2019-03-13] MEDS: METOPROLOL SUCCINATE 50 MG TAB.SR.24H PO SCH (18:31)
[2019-03-13] MEDS: MONTELUKAST SODIUM 10 MG TABLET PO SCH (18:32)
[2019-03-13] MEDS: ASPIRIN 81 MG TABLET, ENT COATED PO SCH (18:32)
[2019-03-13] MEDS: IPRATROPIUM/ALBUTEROL 0.5-2.5 MG/3 ML AMPUL NEB SCH (20:14)
[2019-03-13] MEDS: QUETIAPINE FUMARATE 25 MG TABLET PO SCH (22:02)
[2019-03-14] MEDS: IPRATROPIUM/ALBUTEROL 0.5-2.5 MG/3 ML AMPUL NEB SCH ×4 (02:04→20:38)
[2019-03-14] MEDS: METHYLPREDNISOLONE INJ 40 MG/1 ML SDV IV SCH ×2 (09:37→21:09)
[2019-03-14] MEDS: ENOXAPARIN SODIUM INJ 40 MG/0.4 ML DISP.SYRIN SUBCUT SCH (09:37)
[2019-03-14] MEDS: ASPIRIN 81 MG TABLET, ENT COATED PO SCH (09:38)
[2019-03-14] MEDS: LOSARTAN POTASSIUM 50 MG TABLET PO SCH (09:38)
[2019-03-14] MEDS: HYDROCHLOROTHIAZIDE 12.5 MG TABLET PO SCH (09:38)
[2019-03-14] MEDS: METOPROLOL SUCCINATE 50 MG TAB.SR.24H PO SCH (09:39)
[2019-03-14] MEDS: CYANOCOBALAMIN (VITAMIN B-12) 1,000 MCG TABLET PO SCH (09:39)
[2019-03-14] MEDS: CHLORHEXIDINE GLUCONATE 0.12% ORAL RINSE 15 ML UDC PO SCH (09:39)
[2019-03-14] MEDS: OMEGA-3 ACID ETHYL ESTERS 1 GM CAPSULE PO SCH (09:39)
[2019-03-14] MEDS: FLUTICASONE/UMECLIDIN/VILANTER 100-62.5-25 MCG/DOSE IH SCH (09:41)
[2019-03-14] MEDS: VITAMIN E (DL, ACETATE) 400 UNIT CAPSULE PO SCH (09:41)
[2019-03-14] MEDS ORDERED: (PENDING PHARMACY ID) (Vitamin E [Vitamin E] 1,000 UNIT) PO SCH (10:00)
[2019-03-14] MEDS ORDERED: (PENDING PHARMACY ID) (Vortioxetine Hydrobromide [Trintellix] 10 MG) PO SCH ×2 (10:00)
[2019-03-14] MEDS ORDERED: [UNRECOGNIZED DRUG - OTHER] PO SCH (10:00)
[2019-03-14] MEDS ORDERED: MSM PO SCH (10:00)
[2019-03-14] MEDS ORDERED: (PENDING PHARMACY ID) (Losartan/Hydrochlorothiazide [Losartan-Hctz 50-12.5 Mg Tab] 1 EACH) PO SCH (10:00)
[2019-03-14] MEDS ORDERED: (PENDING PHARMACY ID) (Omega-3 Fatty Acids/Fish Oil [Fish Oil 1,000 Mg Capsule] 2,000 MG) PO SCH (10:00)
[2019-03-14] MEDS ORDERED: GLUCOSAMINE PO SCH (10:00)
[2019-03-14] MEDS ORDERED: CHONDROITIN A PO SCH (10:00)
--- NOTE | 2019-03-14 12:25 | PDOC CRITICAL CARE PROG REPORT ---
General Date:: 03/14/19 ICU Day:: 3 Hospital Day:: 3 Resuscitation Status: Full Code Events in the past 12 to 24 Hours:: Set up with Trellegy machine. Off vent nearly 24 hours. Review of systems relevant to events:: Respiratory, neuro (anxiety). Reason for ICU Addmission:: On ventilator for hypoxic and hypercarbic respiratory failure - Medications: Medications reviewed and adjusted accordingly: Yes Vasopressors:: None Sedation:: None Physical Exam Vital Signs: Temp Pulse Resp BP Pulse Ox 96.6 F L 76 20 126/67 H 93 03/14/19 08:00 03/14/19 08:56 03/14/19 10:23 03/14/19 10:23 03/14/19 10:23 Intake & Output 03/13/19 03/14/19 03/15/19 06:59 06:59 06:59 Intake Total 720 200 Output Total 180 560 100 Balance -180 160 100 Weight 67.1 kg 68.8 kg Weight/Height Weight 68.8 kg Height 4 ft 11 in General appearance: PRESENT: no acute distress, well-developed, well-nourished Head exam: PRESENT: atraumatic, normocephalic Eye exam: PRESENT: conjunctiva pink, EOMI, PERRLA. ABSENT: scleral icterus Ear exam: PRESENT: normal external ear exam Mouth exam: PRESENT: moist, tongue midline Respiratory exam: PRESENT: clear to auscultation ryley, decreased breath sounds. ABSENT: rales, rhonchi, wheezes Cardiovascular exam: PRESENT: RRR. ABSENT: diastolic murmur, rubs, systolic murmur Vascular exam: PRESENT: normal capillary refill GI/Abdominal exam: PRESENT: normal bowel sounds, soft. ABSENT: distended, guarding, mass, organolmegaly, rebound, tenderness Rectal exam: PRESENT: deferred Extremities exam: PRESENT: full ROM. ABSENT: calf tenderness, clubbing, pedal edema Musculoskeletal exam: PRESENT: normal inspection Neurological exam: PRESENT: alert Psychiatric exam: PRESENT: appropriate affect, normal mood. ABSENT: homicidal ideation, suicidal ideation Laboratory/Radiographs Laboratory Results: 03/13/19 03:44 03/13/19 03:44 03/12/19 03/12/19 12:02 12:02 Creatine Kinase < 20 L CK-MB (CK-2) 1.06 Troponin I < 0.012 NT-Pro-B Natriuret Pep 571 H Impressions: Chest X-Ray 03/12/19 12:53 IMPRESSION: Cardiomegaly and mild vascular congestion. Bilateral airspace opacities, may be secondary to atelectasis or pneumonia. Blunting of the costophrenic angles, small pleural effusions cannot be excluded. All labs, radiographs, diagnostic studies and EKGs were personally reviewed: Yes In addition, reports of radiographic and diagnostic studies were read: Yes Assessment and Plan - Diagnosis (1) Acute respiratory failure with hypoxia and hypercapnia Is this a current diagnosis for this admission?: Yes Plan: Staying off vent for now. Set up with home vent. When patient and family are taught OK to send home (Possibly ). (2) Anxiety Is this a current diagnosis for this admission?: Yes Plan: Ativan works well. (3) Scoliosis (and kyphoscoliosis), idiopathic Is this a current diagnosis for this admission?: Yes Plan: Chronic (4) Tracheostomy in place Is this a current diagnosis for this admission?: Yes Plan: Chronic Plan Summary: Transfer from ICU, teach patient and family how to use home vent. Then discharge home. Critical Time Critical Time (minutes): 25 Level of Care: IMCU Anticipated discharge: Home Within: within 48 hours -: 1. The care of a critical patient is a dynamic process. This note is a community representative synopsis but static in nature. The timeframe for treatments given in order is not necessary the actual time these treatments may have been done. 2. This patient requires critical care secondary to ongoing requirements for therapy not offered or safe outside the critical care environment. Transfer to a lower level of care with altered life or limb morbidity and mortality. 3. Multidisciplinary rounds completed. 4. ABCDE bundle addressed.
[2019-03-14] MEDS: MONTELUKAST SODIUM 10 MG TABLET PO SCH (17:01)
[2019-03-14] MEDS: QUETIAPINE FUMARATE 25 MG TABLET PO SCH (21:10)
[2019-03-15] MEDS: IPRATROPIUM/ALBUTEROL 0.5-2.5 MG/3 ML AMPUL NEB SCH ×4 (02:32→19:46)
--- NOTE | 2019-03-15 09:31 | PDOC CONSULTATION ---
Consultation Consult Date: 03/13/19 Attending physician:: ISADORA CLARK Provider Consulted: DIANA NUÑEZ Consult reason:: Acute on chronic respiratory failure History of Present Illness Admission Date/PCP: 03/14/19 07:51 KIMI CANELA MD History of Present Illness: MITCH ORELLANA is a 69 year old female well known to [facility] has trach for chronic ventilatory failure.Presnted to ED obtunded hypercapnic she has m musculoskeletal issues, obesity and COPD all contributing to her ventilatory failure Past Medical History Cardiac Medical History: Reports: Hypertension Pulmonary Medical History: Reports: Chronic Obstructive Pulmonary Disease (COPD), Intubation, Pneumonia, Respiratory Failure GI Medical History: Reports: Gastroesophageal Reflux Disease Musculoskeltal Medical History: Reports: Arthritis Psychiatric Medical History: Reports: Depression Traumatic Medical History: Denies: Gunshot Wound, Pneumothorax Hematology: Denies: Hemophilia Infectious Medical History: Denies: Hepatitis B, Hepatitis C Past Surgical History Past Surgical History: Reports: Orthopedic Surgery, Other Social History Information Source: Patient, [facility] Records Smoking Status: Never Smoker Frequency of Alcohol Use: Rare Hx Recreational Drug Use: No Drugs: None Hx Prescription Drug Abuse: No Do you have pets?: No Have you had any respiratory illnesses as a child?: No Have you been exposed to any sick contacts recently?: No Have you had any recent respiratory illnesses?: No Have you travelled outside of [place] in the past 12 months?: No - Advance Directive Resuscitation Status: Full Code Family History Family History: None, DM, Hypertension Parental Family History Reviewed: Yes Children Family History Reviewed: Yes Sibling(s) Family History Reviewed.: Yes - [id number] Medication/Allergy Home Medications: Albuterol Sulfate [Ventolin Hfa 8 gm Mdi (1 Mdi/ER Disp)] 2 puff IH Q6HP PRN 01/05/19 Aspirin [Ecotrin 81 mg EC Tablet] 81 mg PO DAILY 01/05/19 Chlorhexidine Gluconate [Periogard 0.12% Oral Rinse 15 ml] 5 ml PO DAILY 01/05/19 Cyanocobalamin (Vitamin B-12) [Vitamin B-12 1000 mcg Tablet] 1,000 mcg SL DAILY 01/05/19 Ergocalciferol (Vitamin D2) [Drisdol] 50,000 unit PO [place]@1000 01/05/19 Glucosamine/MSM/Chondroitin A [Gxrmmhjqkiz-Jhfcx-HNC Caplet] 1 each PO DAILY 01/05/19 Losartan/Hydrochlorothiazide [Losartan-Hctz 50-12.5 mg Tab] 1 each PO DAILY 01/05/19 Metoprolol Succinate [Toprol XL 100 mg Tablet] 100 mg PO DAILY 01/05/19 Mirabegron [Myrbetriq] 25 mg PO QPM 01/05/19 Montelukast Sodium [Singulair 10 mg Tablet] 10 mg PO QPM 01/05/19 [place]-3 Fatty Acids/Fish Oil [Fish Oil 1,000 mg Capsule] 2,000 mg PO DAILY 01/05 Quetiapine Fumarate [Seroquel] 25 mg PO QHS 01/05/19 Vitamin E 1,000 unit PO DAILY 01/05/19 Vortioxetine Hydrobromide [Trintellix] 10 mg PO DAILY 01/05/19 Fluticasone/Umeclidin/Vilanter [Trelegy 100-62.5-25 Mcg Ellipta 14 Dose/Dpi] 1 puff IH DAILY 02/28/19 Ipratropium/Albuterol Sulfate [Duoneb 3 ml Ampul] 1 vial NEB Q6 02/28/19 Allergies/Adverse Reactions: No Known Allergies Allergy (Verified 01/04/19 18:44) Review of Systems All systems: reviewed and no additional remarkable complaints except as stated - [id number] Physical Exam Vital Signs: Temp Pulse Resp BP Pulse Ox 96.6 F L 76 19 109/57 L 97 03/14/19 08:00 03/14/19 08:56 03/14/19 08:56 03/14/19 08:00 03/14/19 08:56 Intake & Output 03/13/19 03/14/19 03/15/19 06:59 06:59 06:59 Intake Total 720 Output Total 180 560 0 Balance -180 160 0 Weight 67.1 kg 68.8 kg General appearance: PRESENT: no acute distress, cooperative, disheveled, well- nourished Head exam: PRESENT: atraumatic, normocephalic Eye exam: PRESENT: conjunctiva pale, EOMI. ABSENT: nystagmus, periorbital swe lling Mouth exam: PRESENT: dry mucosa, neck supple, tongue midline Teeth exam: PRESENT: dental caries Neck exam: PRESENT: tracheostomy. ABSENT: carotid bruit, full ROM, JVD, lymphadenopathy, meningismus, tenderness, thyromegaly, tracheal deviation, other Respiratory exam: PRESENT: decreased breath sounds, prolonged expiratory phas, rhonchi, unlabored, wheezes. ABSENT: retraction, stridor, tachypnea Cardiovascular exam: PRESENT: RRR, +S1, +S2, tachycardia Pulses: PRESENT: normal radial pulses - [id number] GI/Abdominal exam: PRESENT: soft. ABSENT: distended, guarding, mass - [id number], rebound, tenderness Extremities exam: PRESENT: pedal edema. ABSENT: calf tenderness, clubbing, full ROM, joint swelling, tenderness Musculoskeletal exam: ABSENT: ambulatory, dislocation - [id number] Neurological exam: PRESENT: alert, awake Psychiatric exam: PRESENT: appropriate affect - [id number] Skin exam: PRESENT: dry, warm Results Laboratory Results: 03/13/19 03:44 03/13/19 03:44 03/12/19 03/12/19 12:02 12:02 Creatine Kinase < 20 L CK-MB (CK-2) 1.06 Troponin I < 0.012 NT-Pro-B Natriuret Pep 571 H Impressions: Chest X-Ray 03/12/19 12:53 IMPRESSION: Cardiomegaly and mild vascular congestion. Bilateral airspace opacities, may be secondary to atelectasis or pneumonia. Blunting of the costophrenic angles, small pleural effusions cannot be excluded. Assessment & Plan - Diagnosis (1) Acute hypercapnic respiratory failure Is this a current diagnosis for this admission?: Yes Plan: As effectively failed BiPAP on multiple occasions (2) Acute and chronic respiratory failure Qualifiers: Respiratory failure complication: hypoxia and hypercapnia Qualified Code(s): J96.21 - Acute and chronic respiratory failure with hypoxia; J96.22 - Acute and chronic respiratory failure with hypercapnia Is this a current diagnosis for this admission?: Yes Plan: The above patient has failed BiPAP with a patent airway. This patient would benefit from noninvasive mechanical ventilation via the trilogy AVAPS/AE and faster responding AVAPS rates. The trilogy is able to provide a target tidal volume and also adjusting the EPAP pressures to maintain a patent airway as well as an oral backup rate this machine will help improve PaCO2 levels. The severity of the patient's condition will lead to future hospitalizations and readmissions as well as life-threatening situations without the use of this device day and night. Trilogy home vent needed for hypercapnic respiratory failure. Family Medical or Med Dante to follow for trilogy set up. (3) Kyphoscoliosis Is this a current diagnosis for this admission?: Yes Plan: Unchanged (4) Post-polio syndrome Is this a current diagnosis for this admission?: Yes Plan: Unchanged (5) Bilateral pneumonia Qualifiers: Pneumonia type: due to unspecified organism Lung location: unspecified part of lung Qualified Code(s): J18.9 - Pneumonia, unspecified organism Is this a current diagnosis for this admission?: Yes Plan: No positive cultures thus far - Time Time Spent: 50 to 70 Minutes Total Critical Time (Minutes): 55
[2019-03-15] MEDS: METHYLPREDNISOLONE INJ 40 MG/1 ML SDV IV SCH ×2 (10:36→21:11)
[2019-03-15] MEDS: CYANOCOBALAMIN (VITAMIN B-12) 1,000 MCG TABLET PO SCH (10:37)
[2019-03-15] MEDS: ENOXAPARIN SODIUM INJ 40 MG/0.4 ML DISP.SYRIN SUBCUT SCH (10:37)
[2019-03-15] MEDS: HYDROCHLOROTHIAZIDE 12.5 MG TABLET PO SCH (10:38)
[2019-03-15] MEDS: ASPIRIN 81 MG TABLET, ENT COATED PO SCH (10:39)
[2019-03-15] MEDS: METOPROLOL SUCCINATE 50 MG TAB.SR.24H PO SCH (10:39)
[2019-03-15] MEDS: LOSARTAN POTASSIUM 50 MG TABLET PO SCH (10:40)
[2019-03-15] MEDS: OMEGA-3 ACID ETHYL ESTERS 1 GM CAPSULE PO SCH (10:40)
[2019-03-15] MEDS: CHLORHEXIDINE GLUCONATE 0.12% ORAL RINSE 15 ML UDC PO SCH (10:40)
[2019-03-15] MEDS: VITAMIN E (DL, ACETATE) 400 UNIT CAPSULE PO SCH (10:43)
--- NOTE | 2019-03-15 11:28 | PDOC CRITICAL CARE PROG REPORT ---
General Date:: 03/15/19 ICU Day:: 4 Hospital Day:: 4 Resuscitation Status: Full Code Events in the past 12 to 24 Hours:: Stable respiratory status. Review of systems relevant to events:: Respiratory Reason for ICU Addmission:: On ventilator for hypoxic and hypercarbic respiratory failure - Medications: Medications reviewed and adjusted accordingly: Yes Vasopressors:: None Sedation:: None Physical Exam Vital Signs: Temp Pulse Resp BP Pulse Ox 100.2 F 89 18 160/74 H 91 L 03/15/19 08:00 03/15/19 08:38 03/15/19 08:38 03/15/19 08:00 03/15/19 08:38 Intake & Output 03/14/19 03/15/19 03/16/19 06:59 06:59 06:59 Intake Total 720 575 Output Total 560 950 Balance 160 -375 Weight 68.8 kg 69.1 kg Weight/Height Weight 69.1 kg Height 4 ft 11 in General appearance: PRESENT: no acute distress, well-developed, well-nourished Head exam: PRESENT: atraumatic, normocephalic Eye exam: PRESENT: conjunctiva pink, EOMI, PERRLA. ABSENT: scleral icterus Ear exam: PRESENT: normal external ear exam Mouth exam: PRESENT: moist, tongue midline Neck exam: PRESENT: tracheostomy Respiratory exam: PRESENT: clear to auscultation ryley. ABSENT: rales, rhonchi, wheezes Cardiovascular exam: PRESENT: RRR. ABSENT: diastolic murmur, rubs, systolic murmur GI/Abdominal exam: PRESENT: normal bowel sounds, soft. ABSENT: distended, guarding, mass, organolmegaly, rebound, tenderness Rectal exam: PRESENT: deferred Extremities exam: PRESENT: full ROM. ABSENT: calf tenderness, clubbing, pedal edema Neurological exam: PRESENT: alert, awake, oriented to person, oriented to place, oriented to time, oriented to situation, CN II-XII grossly intact. ABSENT: motor sensory deficit Skin exam: PRESENT: dry, intact, warm. ABSENT: cyanosis, rash Laboratory/Radiographs Laboratory Results: 03/13/19 03:44 03/13/19 03:44 03/12/19 03/12/19 12:02 12:02 Creatine Kinase < 20 L CK-MB (CK-2) 1.06 Troponin I < 0.012 NT-Pro-B Natriuret Pep 571 H Impressions: Chest X-Ray 03/12/19 12:53 IMPRESSION: Cardiomegaly and mild vascular congestion. Bilateral airspace opacities, may be secondary to atelectasis or pneumonia. Blunting of the costophrenic angles, small pleural effusions cannot be excluded. All labs, radiographs, diagnostic studies and EKGs were personally reviewed: Yes In addition, reports of radiographic and diagnostic studies were read: Yes Assessment and Plan - Diagnosis (1) Acute respiratory failure with hypoxia and hypercapnia Is this a current diagnosis for this admission?: Yes Plan: Resolved (2) Anxiety Is this a current diagnosis for this admission?: Yes Plan: Ativan helpful, continue (3) Scoliosis (and kyphoscoliosis), idiopathic Is this a current diagnosis for this admission?: Yes Plan: Chronic (4) Tracheostomy in place Is this a current diagnosis for this admission?: Yes Plan: Chronic Plan Summary: When rebecca is instructed on home vent-discharge home. Critical Time Critical Time (minutes): 20 Level of Care: IMCU Anticipated discharge: Home Within: within 24 hours -: 1. The care of a critical patient is a dynamic process. This note is a enrollment eligibility representative synopsis but static in nature. The timeframe for treatments g iven in order is not necessary the actual time these treatments may have been done. 2. This patient requires critical care secondary to ongoing requirements for therapy not offered or safe outside the critical care environment. Transfer to a lower level of care with altered life or limb morbidity and mortality. 3. Multidisciplinary rounds completed. 4. ABCDE bundle addressed.
[2019-03-15] MEDS: FLUTICASONE/UMECLIDIN/VILANTER 100-62.5-25 MCG/DOSE IH SCH (12:52)
[2019-03-15] MEDS: MONTELUKAST SODIUM 10 MG TABLET PO SCH (17:38)
[2019-03-15] MEDS: QUETIAPINE FUMARATE 25 MG TABLET PO SCH (21:11)
[2019-03-16] MEDS: LORAZEPAM INJ 2 MG/1 ML VIAL IV PRN (00:19)
[2019-03-16] MEDS: IPRATROPIUM/ALBUTEROL 0.5-2.5 MG/3 ML AMPUL NEB SCH ×2 (02:20→08:05)
[2019-03-16] MEDS: METHYLPREDNISOLONE INJ 40 MG/1 ML SDV IV SCH (09:38)
[2019-03-16] MEDS: OMEGA-3 ACID ETHYL ESTERS 1 GM CAPSULE PO SCH (09:39)
[2019-03-16] MEDS: ENOXAPARIN SODIUM INJ 40 MG/0.4 ML DISP.SYRIN SUBCUT SCH (09:39)
[2019-03-16] MEDS: METOPROLOL SUCCINATE 50 MG TAB.SR.24H PO SCH (09:39)
[2019-03-16] MEDS: HYDROCHLOROTHIAZIDE 12.5 MG TABLET PO SCH (09:40)
[2019-03-16] MEDS: VITAMIN E (DL, ACETATE) 400 UNIT CAPSULE PO SCH (09:41)
[2019-03-16] MEDS: LOSARTAN POTASSIUM 50 MG TABLET PO SCH (09:42)
[2019-03-16] MEDS: ASPIRIN 81 MG TABLET, ENT COATED PO SCH (09:42)
[2019-03-16] MEDS: CYANOCOBALAMIN (VITAMIN B-12) 1,000 MCG TABLET PO SCH (09:43)
[2019-03-16 13:11] VITALS: BP 144/68
--- NOTE | 2019-03-16 13:44 | PDOC DISCHARGE SUMMARY ---
Impression - Admit/DC Date/PCP Admission Date/Primary Care Provider: 03/14/19 07:51 KIMI CANELA MD Discharge Date: 03/16/19 - Discharge Diagnosis (1) Acute respiratory failure with hypoxia and hypercapnia Is this a current diagnosis for this admission?: Yes - Additional Information Resuscitation Status: Full Code Discharge Diet: Regular Discharge Activity: Activity As Tolerated Referrals: KIMI CANELA MD [Primary Care Provider] - Follow up as needed (1 week) Prescriptions: Methylprednisolone [Medrol] 16 mg PO BID #4 tablet Methylprednisolone [Medrol] 32 mg PO BID #4 tablet Methylprednisolone [Medrol] 4 mg PO BID #6 tablet Methylprednisolone [Medrol] 8 mg PO BID #4 tablet Ondansetron [Zofran Odt 4 mg Tablet] 8 mg PO Q4HP PRN #30 tab.rapdis PRN Reason: For Nausea/Vomiting Home Medications: Albuterol Sulfate [Ventolin Hfa 8 gm Mdi (1 Mdi/ER Disp)] 2 puff IH Q6HP PRN 01/05/19 Aspirin [Ecotrin 81 mg EC Tablet] 81 mg PO DAILY 01/05/19 Chlorhexidine Gluconate [Periogard 0.12% Oral Rinse 15 ml] 5 ml PO DAILY Cyanocobalamin (Vitamin B-12) [Vitamin B-12 1000 mcg Tablet] 1,000 mcg SL DAILY 01/05/19 Ergocalciferol (Vitamin D2) [Drisdol] 50,000 unit PO [place]@1000 01/05/19 Glucosamine/MSM/Chondroitin A [Ohrhehhasyh-Eyymn-LYW Caplet] 1 each PO DAILY 01/05/19 Losartan/Hydrochlorothiazide [Losartan-Hctz 50-12.5 mg Tab] 1 each PO DAILY 01/05/19 Metoprolol Succinate [Toprol XL 100 mg Tablet] 100 mg PO DAILY 01/05/19 Mirabegron [Myrbetriq] 25 mg PO QPM 01/05/19 Montelukast Sodium [Singulair 10 mg Tablet] 10 mg PO QPM 01/05/19 [place]-3 Fatty Acids/Fish Oil [Fish Oil 1,000 mg Capsule] 2,000 mg PO DAILY 1 Quetiapine Fumarate [Seroquel] 25 mg PO QHS 01/05/19 Vitamin E 1,000 unit PO DAILY 01/05/19 Vortioxetine Hydrobromide [Trintellix] 10 mg PO DAILY 01/05/19 Fluticasone/Umeclidin/Vilanter [Trelegy 100-62.5-25 Mcg Ellipta 14 Dose/Dpi] 1 puff IH DAILY 02/28/19 Ipratropium/Albuterol Sulfate [Duoneb 3 ml Ampul] 1 vial NEB Q6 02/28/19 Methylprednisolone [Medrol] 4 mg PO BID #6 tablet 03/16/19 Methylprednisolone [Medrol] 8 mg PO BID #4 tablet 03/16/19 Methylprednisolone [Medrol] 16 mg PO BID #4 tablet 03/16/19 Methylprednisolone [Medrol] 32 mg PO BID #4 tablet 03/16/19 Ondansetron [Zofran Odt 4 mg Tablet] 8 mg PO Q4HP PRN #30 tab.rapdis 03/16/19 History of Present Illiness History of Present Illness: MITCH ORELLANA is a 69 year old female Physical Exam Vital Signs: Temp Pulse Resp BP Pulse Ox 99.2 F 87 18 124/82 99 03/16/19 08:00 03/16/19 08:13 03/16/19 09:00 03/16/19 08:00 03/16/19 09:00 Intake & Output 03/15/19 03/16/19 03/17/19 06:59 06:59 06:59 Intake Total 575 560 Output Total 950 200 Balance -375 360 Weight 69.1 kg 66.7 kg General appearance: PRESENT: no acute distress, well-developed, well-nourished Head exam: PRESENT: atraumatic, normocephalic Eye exam: PRESENT: conjunctiva pink, EOMI, PERRLA. ABSENT: scleral icterus Ear exam: PRESENT: normal external ear exam Mouth exam: PRESENT: moist, tongue midline Neck exam: ABSENT: carotid bruit, JVD, lymphadenopathy, thyromegaly Respiratory exam: PRESENT: clear to auscultation ryley. ABSENT: rales, rhonchi, wheezes Cardiovascular exam: PRESENT: RRR. ABSENT: diastolic murmur, rubs, systolic murmur Pulses: PRESENT: normal dorsalis pedis pul Vascular exam: PRESENT: normal capillary refill GI/Abdominal exam: PRESENT: normal bowel sounds, soft. ABSENT: distended, guarding, mass, organolmegaly, rebound, tenderness Rectal exam: PRESENT: deferred Extremities exam: PRESENT: full ROM. ABSENT: calf tenderness, clubbing, pedal edema Neurological exam: PRESENT: alert, awake, oriented to person, oriented to place, oriented to time, oriented to situation, CN II-XII grossly intact. ABSENT: motor sensory deficit Psychiatric exam: PRESENT: appropriate affect, normal mood. ABSENT: homicidal ideation, suicidal ideation Skin exam: PRESENT: dry, intact, warm. ABSENT: cyanosis, rash Results Laboratory Results: WBC 3.0 10^3/uL (4.0-10.5) L 03/13/19 03:44 RBC 4.38 10^6/uL (3.72-5.28) 03/13/19 03:44 Hgb 12.5 g/dL (12.0-15.5) 03/13/19 03:44 Hct 37.7 % (36.0-47.0) 03/13/19 03:44 MCV 86 fl (80-97) 03/13/19 03:44 MCH 28.6 pg (27.0-33.4) 03/13/19 03:44 MCHC 33.2 g/dL (32.0-36.0) 03/13/19 03:44 RDW 14.7 % (11.5-14.0) H 03/13/19 03:44 Plt Count 154 10^3/uL (150-450) 03/13/19 03:44 Lymph % (Auto) 11.0 % (13-45) L 03/13/19 03:44 [place] % (Auto) 3.9 % (3-13) 03/13/19 03:44 Eos % (Auto) 0.0 % (0-6) 03/13/19 03:44 Baso % (Auto) 0.2 % (0-2) 03/13/19 03:44 Absolute Neuts (auto) 2.6 10^3/uL (1.7-8.2) 03/13/19 03:44 Absolute Lymphs (auto) 0.3 10^3/uL (0.5-4.7) L 03/13/19 03:44 Absolute Monos (auto) 0.1 10^3/uL (0.1-1.4) 03/13/19 03:44 Absolute Eos (auto) 0.0 10^3/uL (0.0-0.6) 03/13/19 03:44 Absolute Basos (auto) 0.0 10^3/uL (0.0-0.2) 03/13/19 03:44 Seg Neutrophils % 84.9 % (42-78) H 03/13/19 03:44 PT 13.3 SEC (11.4-15.4) 03/12/19 12:02 INR 1.01 03/12/19 12:02 APTT 33.1 SEC (23.5-35.8) 03/12/19 12:02 Carbonic Acid 2.18 mmol/L (1.05-1.35) H 03/12/19 19:33 HCO3/H2CO3 Ratio 20:1 03/12/19 19:33 ABG pH 7.42 (7.35-7.45) 03/12/19 19:33 ABG pCO2 72.3 mmHg (35-45) H* 03/12/19 19:33 ABG pO2 64.7 mmHg (80-100) L 03/12/19 19:33 ABG HCO3 45.7 mmol/L (20-24) H 03/12/19 19:33 ABG Total CO2 48.0 mmol/L (21-25) H 03/12/19 19:33 ABG O2 Saturation 92.0 % (94-98) L 03/12/19 19:33 ABG Base Excess 17.6 mmol/L 03/12/19 19:33 FiO2 45% 03/12/19 19:33 Sodium 135.8 mmol/L (137-145) L 03/13/19 03:44 Potassium 4.1 mmol/L (3.6-5.0) 03/13/19 03:44 Chloride 82 mmol/L (98-107) L 03/13/19 03:44 Carbon Dioxide 41 mmol/L (22-30) H* 03/13/19 03:44 Anion Gap 13 (5-19) 03/13/19 03:44 BUN 18 mg/dL (7-20) 03/13/19 03:44 Creatinine 0.44 mg/dL (0.52-1.25) L 03/13/19 03:44 Est GFR ( Amer) > 60 (>60) 03/13/19 03:44 Est GFR (MDRD) Non-Af > 60 (>60) 03/13/19 03:44 Glucose 125 mg/dL (75-110) H 03/13/19 03:44 Calcium 9.5 mg/dL (8.4-10.2) 03/13/19 03:44 Total Bilirubin 0.6 mg/dL (0.2-1.3) 03/12/19 12:02 Direct Bilirubin 0.1 mg/dL (0.0-0.4) 03/12/19 12:02 Neonat Total Bilirubin Not Reportable 03/12/19 12:02 Neonat Direct Bilirubin Not Reportable 03/12/19 12:02 Neonat Indirect Bili Not Reportable 03/12/19 12:02 AST 16 U/L (14-36) 03/12/19 12:02 ALT 12 U/L (<35) 03/12/19 12:02 Alkaline Phosphatase 111 U/L (38-126) 03/12/19 12:02 Creatine Kinase < 20 U/L (30-135) L 03/12/19 12:02 CK-MB (CK-2) 1.06 ng/mL (<4.55) 03/12/19 12:02 Troponin I < 0.012 ng/mL 03/12/19 12:02 NT-Pro-B Natriuret Pep 571 pg/mL (<125) H 03/12/19 12:02 Total Protein 7.1 g/dL (6.3-8.2) 03/12/19 12:02 Albumin 4.1 g/dL (3.5-5.0) 03/12/19 12:02 Urine Color YELLOW 03/12/19 13:10 Urine Appearance SLIGHTLY-CLOUDY 03/12/19 13:10 Urine pH 6.0 (5.0-9.0) 03/12/19 13:10 Ur Specific [place] 1.016 03/12/19 13:10 Urine Protein 30 mg/dL (NEGATIVE) H 03/12/19 13:10 Urine Glucose (UA) NEGATIVE mg/dL (NEGATIVE) 03/12/19 13:10 Urine Ketones NEGATIVE mg/dL (NEGATIVE) 03/12/19 13:10 Urine Blood MODERATE (NEGATIVE) H 03/12/19 13:10 Urine Nitrite NEGATIVE (NEGATIVE) 03/12/19 13:10 Urine Bilirubin NEGATIVE (NEGATIVE) 03/12/19 13:10 Urine Urobilinogen NEGATIVE mg/dL (<2.0) 03/12/19 13:10 Ur Leukocyte Esterase SMALL (NEGATIVE) H 03/12/19 13:10 Urine WBC (Auto) 9 /HPF 03/12/19 13:10 Urine RBC (Auto) 21 /HPF 03/12/19 13:10 Urine Bacteria (Auto) TRACE /HPF 03/12/19 13:10 Squamous Epi Cells Auto 2 /HPF 03/12/19 13:10 Urine Mucus (Auto) RARE /LPF 03/12/19 13:10 Urine Ascorbic Acid NEGATIVE (NEGATIVE) 03/12/19 13:10 03/12/19 12:02 CK-MB (CK-2) 1.06 Troponin I < 0.012 NT-Pro-B Natriuret Pep 571 H Impressions: Chest X-Ray 03/12/19 12:53 IMPRESSION: Cardiomegaly and mild vascular congestion. Bilateral airspace opacities, may be secondary to atelectasis or pneumonia. Blunting of the costophrenic angles, small pleural effusions cannot be excluded. Plan Critical Time: 30 Level of Care: ICU - discharge to home health Stroke Is this a Stroke Patient?: No Acute Heart Failure - Is this a Heart Failure Patient?: No
--- NOTE | 2019-03-16 16:17 | PDOC CRITICAL CARE PROG REPORT ---
General Date:: 03/16/19 ICU Day:: 5 Ventilator Day:: 5 Resuscitation Status: Full Code Reason for ICU Addmission:: On ventilator for hypoxic and hypercarbic respiratory failure - Medications: Medications reviewed and adjusted accordingly: Yes Physical Exam Vital Signs: Temp Pulse Resp BP Pulse Ox 97.8 F 76 21 H 144/68 H 94 03/16/19 14:16 03/16/19 14:16 03/16/19 14:16 03/16/19 14:16 03/16/19 14:16 Intake & Output 03/15/19 03/16/19 03/17/19 06:59 06:59 06:59 Intake Total 575 560 Output Total 950 200 Balance -375 360 Weight 69.1 kg 66.7 kg Weight/Height Weight 66.7 kg Height 4 ft 11 in General appearance: PRESENT: no acute distress, well-developed, well-nourished Head exam: PRESENT: atraumatic, normocephalic Eye exam: PRESENT: conjunctiva pink, EOMI, PERRLA. ABSENT: scleral icterus Ear exam: PRESENT: normal external ear exam Mouth exam: PRESENT: moist, tongue midline Neck exam: ABSENT: carotid bruit, JVD, lymphadenopathy, thyromegaly Respiratory exam: PRESENT: clear to auscultation ryley. ABSENT: rales, rhonchi, wheezes Cardiovascular exam: PRESENT: RRR. ABSENT: diastolic murmur, rubs, systolic murmur Pulses: PRESENT: normal dorsalis pedis pul Vascular exam: PRESENT: normal capillary refill GI/Abdominal exam: PRESENT: normal bowel sounds, soft. ABSENT: distended, guarding, mass, organolmegaly, rebound, tenderness Rectal exam: PRESENT: deferred Extremities exam: PRESENT: full ROM. ABSENT: calf tenderness, clubbing, pedal edema Neurological exam: PRESENT: alert, awake, oriented to person, oriented to place, oriented to time, oriented to situation, CN II-XII grossly intact. ABSENT: motor sensory deficit Psychiatric exam: PRESENT: appropriate affect, normal mood. ABSENT: homicidal ideation, suicidal ideation Skin exam: PRESENT: dry, intact, warm. ABSENT: cyanosis, rash Laboratory/Radiographs Laboratory Results: 03/13/19 03:44 03/13/19 03:44 03/12/19 03/12/19 12:02 12:02 Creatine Kinase < 20 L CK-MB (CK-2) 1.06 Troponin I < 0.012 NT-Pro-B Natriuret Pep 571 H Impressions: Chest X-Ray 03/12/19 12:53 IMPRESSION: Cardiomegaly and mild vascular congestion. Bilateral airspace opacities, may be secondary to atelectasis or pneumonia. Blunting of the costophrenic angles, small pleural effusions cannot be excluded. All labs, radiographs, diagnostic studies and EKGs were personally reviewed: Yes In addition, reports of radiographic and diagnostic studies were read: Yes Assessment and Plan - Diagnosis (1) Acute respiratory failure with hypoxia and hypercapnia Is this a current diagnosis for this admission?: Yes Plan: Resolved Plan Summary: 69yo F with hx of polio requiring tracheostomy. Family trained on ventilator and trach care. Will discharge home today with home health. Stress dose steroids were started in the ICU. Will plan to transition rapid taper as outpatient. Critical Time Critical Time (minutes): 30 Level of Care: ICU Anticipated discharge: Home with Homehealth Within: within 24 hours -: 1. The care of a critical patient is a dynamic process. This note is a community representative synopsis but static in nature. The timeframe for treatments given in order is not necessary the actual time these treatments may have been done. 2. This patient requires critical care secondary to ongoing requirements for therapy not offered or safe outside the critical care environment. 3. Multidisciplinary rounds completed. 4. ABCDE bundle addressed.
[2019-03-16] MEDS: CHLORHEXIDINE GLUCONATE 0.12% ORAL RINSE 15 ML UDC PO SCH (17:30)
[2019-03-16] MEDS: FLUTICASONE/UMECLIDIN/VILANTER 100-62.5-25 MCG/DOSE IH SCH (17:31)
[2019-03-19] MEDS ORDERED: ERGOCALCIFEROL (VITAMIN D2) 50000 UNIT (1.25 MG) CAPSULE PO SCH (10:00)
== END 2019-03-16 14:59 | disposition home or self-care (01) | DRG 208 ==
LOC: ER 12:18 → UNDOADMIN 15:05 → EH 15:05 → ICU 18:21 → EH 18:21 → ICU 03-14 07:51
PROVIDERS: ADMIT Anesthesiology; ATTEND Anesthesiology
PROC: 5A1945Z Respiratory Ventilation, 24-96 Consecutive Hours (ICD-10-PCS; principal; 2019-03-14)
DX: J96.21 Acute and chronic respiratory failure with hypoxia (principal); Z99.11 Dependence on respirator [ventilator] status; J44.1 Chronic obstructive pulmonary disease with (acute) exacerbation; F41.9 Anxiety disorder, unspecified; M41.20 Other idiopathic scoliosis, site unspecified; I10 Essential (primary) hypertension; J44.9 Chronic obstructive pulmonary disease, unspecified; K21.9 Gastro-esophageal reflux disease without esophagitis; F32.9 Major depressive disorder, single episode, unspecified; Z93.0 Tracheostomy status; M19.90 Unspecified osteoarthritis, unspecified site; Z79.899 Other long term (current) drug therapy; Z79.51 Long term (current) use of inhaled steroids; Z98.1 Arthrodesis status; Z86.12 Personal history of poliomyelitis; E66.9 Obesity, unspecified
CPT/HCPCS: 36415; 36600; 71045; 80048; 80053; 81001; 82550; 82553; 82803; 83880; 84484; 85025; 85610; 85730; 93005; 93010; 94002; 94003; 94640; 96374; 99291; J1650; J1940; J2060; J2920; J2930; J3490; J7620; S0028

== ENCOUNTER → 2019-04-17 | Outpatient (CLI) | payer MEDICARE, MEDICAID ==
--- NOTE | 2019-04-18 11:34 | XCELERA REPORT ---
[address] [address] Lower Extremity Arterial Evaluation Name: MITCH ORELLANA Age: 69 yrs Gender: Female : 1950 Patient Status: Outpatient Patient Location: RAD Study Date: 04/17/2019 11:27 AM Procedure: A color flow and duplex scan of the lower extremity arteries was performed bilaterally with velocity and waveform anaylsis. 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 Ankle Brachial index not done. Left Side Arterial Evaluation Normal velocity and triphasic waveforms noted from the Common Femoral artery to the infrageniculate vessels . Ankle Brachial index not done. Interpretation Summary No hemodynamically significant lesions in the bilateral lower extremities, on duplex imaging, at rest. : KIMI CANELA > Dung [place]
== END ==
LOC: RAD 11:18
PROVIDERS: ATTEND Internal Medicine
DX: I73.9 Peripheral vascular disease, unspecified (principal)
CPT/HCPCS: 93925

== ENCOUNTER → 2019-12-12 | Outpatient (CLI) | payer MEDICARE, MEDICAID ==
[2019-12-12 15:16] LABS: ARTERIAL BLOOD BASE EXCESS 1.4 mmol/L; ARTERIAL BLOOD H2CO3 1.64 mmol/L (1.05-1.35); ARTERIAL BLOOD HCO3 28.2 mmol/L (20-24); ARTERIAL BLOOD O2 SATURATION 99.4 % (94-98); ARTERIAL BLOOD PCO2 54.4 mmHg (35-45); ARTERIAL BLOOD PH 7.33 (7.35-7.45); ARTERIAL BLOOD PO2 214.2 mmHg (80-100); ARTERIAL BLOOD TOTAL CO2 29.8 mmol/L (21-25)
[2019-12-12 15:22] LABS: ARTERIAL BLOOD FIO2 3L
--- NOTE | 2019-12-12 15:28 | RADIOLOGY REPORT (SQ) ---
EXAM DESCRIPTION: CHEST PA/LATERAL IMAGES COMPLETED DATE/TIME: 12/12/2019 3:19 pm REASON FOR STUDY: CENTRILOBULAR EMPHYSEMA COMPARISON: 03/12/2019 EXAM PARAMETERS: NUMBER OF VIEWS: two views TECHNIQUE: Digital Frontal and Lateral radiographic views of the chest acquired. RADIATION DOSE: NA LIMITATIONS: none FINDINGS: LUNGS AND PLEURA: Chronic lung changes. Cannot exclude opacification in the left base. MEDIASTINUM AND HILAR STRUCTURES: No masses or contour abnormalities. HEART AND VASCULAR STRUCTURES: The heart appears to be enlarged. BONES: Marked scoliosis. HARDWARE: Spinal hardware. Tracheostomy tube. OTHER: No other significant finding. IMPRESSION: Cardiomegaly. Cannot exclude a limited left lower lobe pneumonia. Chronic lung changes . TECHNICAL DOCUMENTATION: JOB ID: [id number] 2010 [employer]- All Rights Reserved Reading location - IP/workstation name: [email or web address]
== END ==
LOC: OD 14:41
PROVIDERS: ATTEND Internal Medicine Pulmonary Disease
DX: J43.2 Centrilobular emphysema (principal); J96.12 Chronic respiratory failure with hypercapnia
CPT/HCPCS: 71046; 82803

== ENCOUNTER → 2020-01-24 | Outpatient (CLI) | payer MEDICARE, MEDICAID ==
--- NOTE | 2020-01-24 16:56 | RADIOLOGY REPORT (SQ) ---
EXAM DESCRIPTION: CHEST PA/LATERAL IMAGES COMPLETED DATE/TIME: 01/24/2020 3:37 pm REASON FOR STUDY: CENTRILOBULAR EMPHYSEMA COMPARISON: PA and lateral views of the chest from 12/12/2019. EXAM PARAMETERS: NUMBER OF VIEWS: Two views. TECHNIQUE: PA and lateral views of the chest were obtained. RADIATION DOSE: NA. LIMITATIONS: None. FINDINGS: LUNGS AND PLEURA: Unchanged appearance of the lungs and pleura compared to 12/12/2019. Ther e is no acute consolidation, sizeable pleural effusion or pneumothorax. MEDIASTINUM AND HILAR STRUCTURES: No mediastinal or hilar contour abnormality. HEART AND VASCULAR STRUCTURES: The cardiac silhouette and pulmonary vasculature are within normal wahl its. BONES: Scoliotic curvature of the thoracic spine. HARDWARE: Fixation hardware in the thoracic spine and tracheostomy tube. OTHER: No other finding. IMPRESSION: No acute cardiopulmonary process. TECHNICAL DOCUMENTATION: JOB ID: [id number] 2010 [employer]- All Rights Reserved Reading location - IP/workstation name: [email or web address]
== END ==
LOC: OD 15:19
PROVIDERS: ATTEND Internal Medicine Pulmonary Disease
DX: J43.2 Centrilobular emphysema (principal)
CPT/HCPCS: 71046